=== PATIENT | female | born 1940 | race American Indian/Alaskan Native ===

== ENCOUNTER 2016-08-30 10:04 | Emergency (ER) | payer BC, OTHER ==
--- NOTE | 2016-08-30 09:59 | EDM.PDOC ---
ED HPI GENERAL MEDICAL PROBLEM - General Chief Complaint: Chest Pain Stated Complaint: FROM [facility] Time Seen by Provider: 08/30/16 09:54 Source of Information: Reports: Patient, EMS, Old Records, Provider (Dr. Toscano, [facility]), RN, RN Notes Reviewed History Limitations: Reports: No Limitations - History of Present Illness INITIAL COMMENTS - FREE TEXT/NARRATIVE: Sent by Dr Toscano by ambulance from [facility] for chest pain evaluation. Pt denies current chest pain on arrival to ER. Today the pt went to the clinic to have her Protime checked because she takes coumadin for chronic A- fib. Pt told Dr. Toscano that she has been having recurrent chest pain x3 weeks for which she takes a Nitroglycerin 0.4mg SL and the pain goes away. Pt last had the chest pain yesterday. Today Dr. Toscano gave pt chewable Aspirin 325mg prior to sending pt to the ER. Pt reports random chest pain, not specifically triggered by activity or exertion , over the past 3 weeks. She did not go to the doctor because the nitro. made the pain go away. Pt also reports a 6lb weight gain in the pain 1 week with increased lower ext. edema. She admits to orthopnea and sleeps on 2 pillow in addition to having a mechanical bed which she keeps the head of elevated to help her breathing. Denies cough, N/V, fever, or chills. Admits to a couple of episodes of epigastric pain that she thought was due to indigestion, but eventually it radiated to her chest and was relieved with nitroglycerin. Onset: Other (Onset 3 weeks ago.) Duration: Week(s): (3), Getting Worse, Intermittent Location: Reports: Chest Quality: Reports: Ache, Pressure, Same as Previous Episode Severity: Moderate Improves with: Reports: Medication (Nitroglycerin 0.4mg SL) Worsens with: Reports: None Context: Denies: Activity, Exercise, Lifting, Sick Contact, Trauma Associated Symptoms: Reports: No Other Symptoms Treatments [employer]: Reports: Aspirin, Nitroglycerin Back Pain Score (Numeric/FACES): 6 - Related Data Allergies Allergy/AdvReac Type Severity Reaction Status Date / Time ampicillin Allergy Hives Verified 08/30/16 10:29 atorvastatin calcium Allergy Muscle Verified 08/30/16 10:29 [From Lipitor] Aches clonazepam [From Klonopin] Allergy Other Verified 08/30/16 10:29 codeine Allergy Rash Verified 08/30/16 10:29 duloxetine HCl Allergy Nausea Verified 08/30/16 10:29 [From Cymbalta] hydrochlorothiazide Allergy Other Verified 08/30/16 10:29 indomethacin [From Indocin] Allergy Headache Verified 08/30/16 10:29 indomethacin sodium Allergy Headache Verified 08/30/16 10:29 [From Indocin] Iodinated Contrast- Oral and Allergy Other Verified 08/30/16 10:29 IV Dye [Iodinated Contrast Media - IV Dye] lactose Allergy Diarrhea Verified 08/30/16 10:29 lisinopril Allergy Cough Verified 08/30/16 10:29 metolazone Allergy Muscle Verified 08/30/16 10:29 Aches metoprolol Allergy Fatigue Verified 08/30/16 10:29 oxycodone [Oxycodone] Allergy Other Verified 08/30/16 10:29 Penicillins Allergy Hives Verified 08/30/16 10:29 pentazocine [From Talwin] Allergy Delusions Verified 08/30/16 10:29 pravastatin Allergy Muscle Verified 08/30/16 10:29 Aches simvastatin Allergy Muscle Verified 08/30/16 10:29 Aches spironolactone Allergy Headache Verified 08/30/16 10:29 Sulfa (Sulfonamide Allergy Hives Verified 08/30/16 10:29 Antibiotics) sulfamethoxazole Allergy Hives Verified 08/30/16 10:29 [From Bactrim] tetanus toxoid, adsorbed Allergy Cannot Verified 08/30/16 10:29 Remember trimethoprim [From Bactrim] Allergy Hives Verified 08/30/16 10:29 tuberculin, purified protein Allergy Rash Verified 08/30/16 10:29 deriva [tuberculin,purif.prot.deriv.] zoster vaccine live Allergy Cannot Verified 08/30/16 10:29 Remember Home Meds: Home Meds Bumetanide [Bumex] 4 mg PO BID 11/25/13 [History] Insulin Glarg,Human.Rec.Analog [LantUS] 0 unit SQ BID 11/25/13 [History] Isosorbide Mononitrate [Imdur] 60 mg PO BID 11/25/13 [History] LORazepam [Ativan] 1 mg PO BEDTIME PRN 11/25/13 [History] Levothyroxine Sodium [Synthroid] 150 mcg PO ACBREAKFAST 11/25/13 [History] Nitroglycerin [Nitrostat] 0.4 mg SL Q5M PRN MDD 3 11/25/13 [History] Psyllium [Metamucil SF] 1 tbsp PO DAILY PRN 11/25/13 [History] amLODIPine Besylate [Amlodipine Besylate] 2.5 mg PO DAILY 11/25/13 [History] Acetaminophen 650 mg PO Q6HR PRN 03/28/15 [History] Albuterol [Proventil HFA] 2 inh INH ASDIRECTED PRN 03/28/15 [History] Potassium Chloride [Potassium Chloride] 40 meq PO TID 03/28/15 [History] Amitriptyline [Elavil] 30 mg PO BEDTIME 03/29/15 [History] Cholecalciferol (Vitamin D3) [Vitamin D3] 1,000 units PO TID 03/29/15 [History] Warfarin [Coumadin] 3 mg PO DAILY 10/30/15 [History] hydrALAZINE HCl [Hydralazine HCl] 50 mg PO BID 10/30/15 [History] Albuterol [Proventil Neb Soln] 1 ampule INH Q6H 03/27/16 [History] Carvedilol [Coreg] 6.25 mg PO BIDMEALS 03/27/16 [History] Cyanocobalamin (Vitamin B12) [Vitamin B12] 500 mcg PO BEDTIME 03/27/16 [History] Garlic [Garlique] 1,000 mcg PO DAILY 03/27/16 [History] Hypromellose/PF [Retaine Hpmc 0.3% Eye Drops] 1 drop EYEBOTH Q4H PRN 03/27/16 [ History] Meclizine [Antivert] 25 mg PO QID 03/27/16 [History] Pantoprazole Sodium [Protonix] 40 mg PO DAILY 03/27/16 [History] Ubidecarenone [Co Q-10] 1 cap PO DAILY 03/27/16 [History] Docusate Sodium 100 mg PO BID 08/30/16 [History] Insulin Aspart [Novolog Flexpen] 0 units SUBCUT TID 08/30/16 [History] Metolazone 2.5 mg PO WEEKLY 08/30/16 [History] aMILoride HCl [Amiloride HCl] 5 mg PO BID 08/30/16 [History] Past Medical History HEENT History: Reports: None, Cataract, Impaired Vision, Other (See Below) Other HEENT History: HEARING LOSS TOTAL-RIGHT PARTIAL-LEFT, WEARS BILAT HEARING AIDES Cardiovascular History: Reports: Afib, CAD, Heart Failure, Hypertension, [place], Stents, Other (See Below) Other Cardiovascular History: CAROTID ARTERY DISEASE. HEART FAILURE WITH PRESERVED EJECTION FRACTION. HYPERTENSIVE HEART DISEASE. TIA Respiratory History: Reports: Asthma, Bronchitis, Recurrent Gastrointestinal History: Reports: Chronic Constipation, GERD, Hemorrhoids, Irritable Bowel Syndrome Genitourinary History: Reports: Chronic Renal Insuffiency, Other (See Below) Other Genitourinary History: CKD STAGE III [employer] [employer] [facility] [facility] WORK[employer] History: Reports: None, Other (See Below) Other OB/BYN History: UTERUS WAS ADHESED TO HER SPINE Musculoskeletal History: Reports: Back Pain, Chronic, Fracture, Osteoarthritis Other Musculoskeletal History: FRACTURED ARM WHEN SHE WAS YOUNG Neurological History: Reports: TIA, Other (See Below) Other Neuro History: NORMAL PRESSURE HYDROCEPHALUS. SUBDURAL HEMATOMA Psychiatric History: Reports: Depression Endocrine/Metabolic History: Reports: Diabetes, Type II, Hypothyroidism, Obesity /BMI 30+, Osteoporosis, Vitamin D Deficiency Hematologic History: Reports: Blood Transfusion(s) Immunologic History: Reports: None Oncologic (Cancer) History: Reports: Malignant Melanoma Dermatologic History: Reports: None - Infectious Disease History Infectious Disease History: Reports: Chicken Pox, Measles, Mumps, Shingles - Past Surgical History HEENT Surgical History: Reports: Adenoidectomy, Cataract Surgery, Tonsillectomy , Other (See Below) Cardiovascular Surgical History: Reports: Carotid Endarterectomy, Coronary Artery Stent, Other (See Below) GI Surgical History: Reports: Appendectomy, Colonoscopy, EGD, Polypectomy, Other (See Below) Female Surgical History: Reports: Breast Biopsy, Hysterectomy, Salpingo- Oophorectomy Neurological Surgical History: Reports: Other (See Below) Oncologic Surgical History: Reports: Biopsy of Breast Social & Family History - Family History Family Medical History: Noncontributory - Tobacco Use Smoking Status *Q: Former Smoker Tobacco Use Within Last Twelve Months: Cigarettes Years of Tobacco use: 10 Month Tobacco Last Used: 06/11/1982 Second Hand Smoke Exposure: Yes - Caffeine Use Caffeine Use: Reports: None - Alcohol Use Days Per Week of Alcohol Use: 0 - Recreational Drug Use Recreational Drug Use: No Drug Use in Last 12 Months: No - Living Situation & Occupation Living situation: Reports: with Family Occupation: Retired ED ROS GENERAL - Review of Systems Review Of Systems: ROS reveals no pertinent complaints other than HPI. ED EXAM, GENERAL - Physical Exam Exam: See Below Exam Limited By: No Limitations General Appearance: Alert, WD/WN, No Apparent Distress, Obese Eye Exam: Bilateral Eye: Normal Inspection Ears: Hearing Loss (chronic/stable) Nose: Normal Inspection, Normal Mucosa, No Blood Throat/Mouth: Normal Inspection, Normal Voice, No Airway Compromise Head: Atraumatic, Normocephalic Neck: Normal Inspection, Supple, Non-Tender, Full Range of Motion Respiratory/Chest: No Respiratory Distress, No Accessory Muscle Use, Chest Non- Tender, Decreased Breath Sounds, Rales Cardiovascular: Irregularly Irregular, Other (+2 pitting edema to knees B/L) GI/Abdominal: Normal Bowel Sounds, Soft, Non-Tender, No Distention, Other ( benign obese abdomen). No: Guarding, Rigid, Rebound (Female) Exam: Deferred Rectal (Female) Exam: Deferred Back Exam: Normal Inspection Extremities: Normal Range of Motion, Non-Tender, Pedal Edema Neurological: Alert, Oriented, CN II-XII Intact, Normal Cognition, No Motor/ Sensory Deficits Psychiatric: Normal Affect, Normal Mood Skin Exam: Warm, Dry, Intact, Normal Color, No Rash EKG INTERPRETATION EKG Date: 08/30/16 Time: 10:03 Rhythm: A-Fib Rate (Beats/Min): 69 [place]: Normal P-Wave: Absent QRS: Other (anterior Q-waves, old) ST-T: Normal QT: Normal Comparison: No Change Course - Vital Signs Last Recorded V/S: Last Vital Signs Temp 35.9 C 08/30/16 10:56 Pulse 80 08/30/16 10:56 Resp 18 08/30/16 10:56 BP 129/91 H 08/30/16 10:56 Pulse Ox 94 L 08/30/16 10:56 - Orders/Labs/Meds Orders: Active Orders 24 hr Category Date Time Status EKG 12 Lead [EKG Documentation Completion] [RC] STAT Care 08/30/16 09:59 Active Peripheral IV Care [RC] . DIRECTED Care 08/30/16 10:00 Active Sodium Chloride 0.9% [Saline Flush] Med 08/30/16 09:59 Active 10 ml FLUSH ASDIRECTED PRN Peripheral IV Insertion Adult [OM.PC] Stat Oth 08/30/16 09:59 Ordered Medication Orders Sodium Chloride (Saline Flush) 10 ml FLUSH ASDIRECTED PRN PRN Reason: Keep Vein Open Labs: Laboratory Tests 08/30/16 08/30/16 08/30/16 Range/Units 10:15 10:15 10:15 WBC 9.6 (5.0-10.0) 10^3/uL RBC 4.39 (4.2-5.4) 10^6/uL Hgb 14.1 (12.0-16.0) g/dL Hct 42.3 (37.0-47.0) % MCV 96.4 (80-100) fL MCH 32.1 (27.0-34.0) pg MCHC 33.3 (33.0-35.0) g/dL Plt Count 176 (150-450) 10^3/uL Neut % (Auto) 64.2 (42.2-75.2) % Lymph % (Auto) 14.6 L (20.5-50.1) % [place] % (Auto) 15.7 H (2-8) % Eos % (Auto) 5.2 H (1.0-3.0) % Baso % (Auto) 0.3 (0.0-1.0) % PT 21.7 H (9.0-12.0) SEC INR 2.2 H (0.9-1.2) APTT 35.7 H (22.0-34.0) SEC Sodium 137 (135-145) mmol/L Potassium 4.2 (3.6-5.0) mmol/L Chloride 95 L (101-111) mmol/L Carbon Dioxide 29.0 (21.0-31.0) mmol/L Anion Gap 17.2 BUN 35 H (7-18) mg/dL Creatinine 1.3 (0.6-1.3) mg/dL Est Cr Clr Drug Dosing 29.12 mL/min Estimated GFR (MDRD) 40 BUN/Creatinine Ratio 26.92 Glucose 155 H (74-105) mg/dL Calcium 9.5 (8.4-10.2) mg/dl Total Bilirubin 0.9 (0.2-1.0) mg/dL AST 34 (10-42) IU/L ALT 30 (10-60) IU/L Alkaline Phosphatase 108 (42-121) IU/L Troponin I 0.03 H* (0.00-0.02) ng/ml B-Natriuretic Peptide 152 H (0-100) pg/ml Total Protein 7.0 (6.7-8.2) g/dl Albumin 3.8 (3.2-5.5) g/dl Globulin 3.2 Albumin/Globulin Ratio 1.19 Meds: Medications Generic Name Dose Route Start Last Admin Trade Name Freq PRN Reason Stop Dose Admin Sodium Chloride 10 ml 08/30/16 09:59 Saline Flush FLUSH ASDIRECTED PRN Keep Vein Open - Radiology Interpretation Free Text/Narrative:: CXR: cardiomegaly unchanged, no new abnormalities compared to prior studies per Rad. report. Departure - Departure Time of Disposition: 11:05 Disposition: DC/Tfer to [facility] 02 Reason for Transfer *Q: Primary PCI Indicated Condition: Serious Clinical Impression: Unstable angina pectoris due to coronary arteriosclerosis CHF (congestive heart failure) Qualifiers: Congestive heart failure type: unspecified congestive heart failure type Congestive heart failure chronicity: acute on chronic Qualified Code(s): I50.9 - Heart failure, unspecified Forms: ED Department Discharge, Interfacility Transfer EMTALA - My Orders Last 24 Hours: My Active Orders 08/30/16 09:59 EKG 12 Lead [EKG Documentation Completion] [RC] STAT Sodium Chloride 0.9% [Saline Flush] 10 ml FLUSH ASDIRECTED PRN Peripheral IV Insertion Adult [OM.PC] Stat 08/30/16 10:00 Peripheral IV Care [RC] . DIRECTED - Assessment/Plan Last 24 Hours: My Active Orders 08/30/16 09:59 EKG 12 Lead [EKG Documentation Completion] [RC] STAT Sodium Chloride 0.9% [Saline Flush] 10 ml FLUSH ASDIRECTED PRN Peripheral IV Insertion Adult [OM.PC] Stat 08/30/16 10:00 Peripheral IV Care [RC] . DIRECTED
[~2016-08-30 10:04] MED LIST: Sodium Chloride 0.9% 10 ML Syringe FLUSH PRN
--- NOTE | 2016-08-30 10:41 | CR ---
Clinical history: 76-year-old female chest pain. Interpretation: Upright AP portable chest film confirms mild cardiomegaly but without new cephalizat ion of flow, alveolar edema or dependent pleural fluid accumulation when compared 11 June 2015 exam (external manager home healthcare leads, tiny surgical clips left neck and apparent ventriculoperitoneal sh unt line on the right). Good inspiratory effort and no discrete lung mass, hilar lymphadenopathy or focal lobar pneumonia. No atelectasis/collapse. No pneumothorax. CONCLUSION: No acute new cardiopulmonary abnormality since May 2015 exam.
[2016-08-30 10:57] VITALS: BP 129/91
[2016-08-30] MEDS ORDERED: Insulin Detemir 100 Units/ML 3 ML Pen SUBCUT ONE (11:19)
--- NOTE | 2016-09-03 14:13 | EKG ---
08/30/2016- CHIKIS BARRON - A 12-lead EKG shows atrial fibrillation with heart rate of 69. No significant ST elevation or ST depression noted on this 12-lead EKG. [facility] /[id number]
== END 2016-08-30 11:47 ==
LOC: DL.ED 10:04
DX: I25.110 Atherosclerotic heart disease of native coronary artery with unstable angina pectoris (principal); I13.0 Hypertensive heart and chronic kidney disease with heart failure and stage 1 through stage 4 chronic kidney disease, or unspecified chronic kidney disease; E11.22 Type 2 diabetes mellitus with diabetic chronic kidney disease; N18.3 Chronic kidney disease, stage 3 (moderate); I50.9 Heart failure, unspecified; I25.2 Old myocardial infarction; K21.9 Gastro-esophageal reflux disease without esophagitis; J45.909 Unspecified asthma, uncomplicated; F32.9 Major depressive disorder, single episode, unspecified; E66.9 Obesity, unspecified; Z86.73 Personal history of transient ischemic attack (TIA), and cerebral infarction without residual deficits; Z98.890 Other specified postprocedural states; Z95.5 Presence of coronary angioplasty implant and graft; Z85.820 Personal history of malignant melanoma of skin; Z90.710 Acquired absence of both cervix and uterus; Z98.49 Cataract extraction status, unspecified eye; Z87.891 Personal history of nicotine dependence; Z79.4 Long term (current) use of insulin; Z79.01 Long term (current) use of anticoagulants; Z79.899 Other long term (current) drug therapy; Z88.7 Allergy status to serum and vaccine; Z88.0 Allergy status to penicillin; Z88.1 Allergy status to other antibiotic agents; Z88.5 Allergy status to narcotic agent; Z88.8 Allergy status to other drugs, medicaments and biological substances; Z91.041 Radiographic dye allergy status
CPT/HCPCS: 36415; 71010; 80053; 83880; 84484; 85025; 85610; 85730; 93005; 99285; J1815

== ENCOUNTER 2016-09-15 11:31 | Emergency (ER) | payer BC, OTHER ==
[2016-09-15] MEDS ORDERED: Sodium Chloride 0.9% 10 ML Syringe FLUSH PRN (12:05)
--- NOTE | 2016-09-15 12:05 | EDM.PDOC ---
ED HPI GENERAL MEDICAL PROBLEM - General Chief Complaint: Chest Pain Stated Complaint: [id number] CHEST PAIN Time Seen by Provider: 09/15/16 12:05 Source of Information: Reports: Patient History Limitations: Reports: No Limitations - History of Present Illness INITIAL COMMENTS - FREE TEXT/NARRATIVE: 76 yo female presents with shortness of breath and dry cough x 1 week. States that she was recently admitted for CHF exacerbation. C/o nausea with no vomiting. No other complaints Onset Date: 09/08/16 Duration: Getting Worse Location: Reports: Chest Quality: Reports: Pressure Improves with: Reports: None Worsens with: Reports: Breathing Associated Symptoms: Reports: No Other Symptoms Chest Pain Score (Numeric/FACES): 5 - Related Data Allergies Allergy/AdvReac Type Severity Reaction Status Date / Time ampicillin Allergy Hives Verified 09/15/16 13:45 atorvastatin calcium Allergy Muscle Verified 09/15/16 13:45 [From Lipitor] Aches clonazepam [From Klonopin] Allergy Other Verified 09/15/16 13:45 codeine Allergy Rash Verified 09/15/16 13:45 duloxetine HCl Allergy Nausea Verified 09/15/16 13:45 [From Cymbalta] hydrochlorothiazide Allergy Other Verified 09/15/16 13:45 indomethacin [From Indocin] Allergy Headache Verified 09/15/16 13:45 indomethacin sodium Allergy Headache Verified 09/15/16 13:45 [From Indocin] Iodinated Contrast- Oral and Allergy Other Verified 09/15/16 13:45 IV Dye [Iodinated Contrast Media - IV Dye] lactose Allergy Diarrhea Verified 09/15/16 13:45 lisinopril Allergy Cough Verified 09/15/16 13:45 metolazone Allergy Muscle Verified 09/15/16 13:45 Aches metoprolol Allergy Fatigue Verified 09/15/16 13:45 oxycodone [Oxycodone] Allergy Other Verified 09/15/16 13:45 Penicillins Allergy Hives Verified 09/15/16 13:45 pentazocine [From Talwin] Allergy Delusions Verified 09/15/16 13:45 pravastatin Allergy Muscle Verified 09/15/16 13:45 Aches simvastatin Allergy Muscle Verified 09/15/16 13:45 Aches spironolactone Allergy Headache Verified 09/15/16 13:45 Sulfa (Sulfonamide Allergy Hives Verified 09/15/16 13:45 Antibiotics) sulfamethoxazole Allergy Hives Verified 09/15/16 13:45 [From Bactrim] tetanus toxoid, adsorbed Allergy Cannot Verified 09/15/16 13:45 Remember trimethoprim [From Bactrim] Allergy Hives Verified 09/15/16 13:45 tuberculin, purified protein Allergy Rash Verified 09/15/16 13:45 deriva [tuberculin,purif.prot.deriv.] zoster vaccine live Allergy Cannot Verified 09/15/16 13:45 Remember Home Meds: Home Meds Bumetanide [Bumex] 4 mg PO BID 11/25/13 [History] Insulin Glarg,Human.Rec.Analog [LantUS] 0 unit SQ BID 11/25/13 [History] Isosorbide Mononitrate [Imdur] 60 mg PO BID 11/25/13 [History] LORazepam [Ativan] 1 mg PO BEDTIME PRN 11/25/13 [History] Levothyroxine Sodium [Synthroid] 150 mcg PO ACBREAKFAST 11/25/13 [History] Nitroglycerin [Nitrostat] 0.4 mg SL Q5M PRN MDD 3 11/25/13 [History] Psyllium [Metamucil SF] 1 tbsp PO DAILY PRN 11/25/13 [History] amLODIPine Besylate [Amlodipine Besylate] 2.5 mg PO DAILY 11/25/13 [History] Acetaminophen 650 mg PO Q6HR PRN 03/28/15 [History] Albuterol [Proventil HFA] 2 inh INH ASDIRECTED PRN 03/28/15 [History] Potassium Chloride [Potassium Chloride] 40 meq PO TID 03/28/15 [History] Amitriptyline [Elavil] 30 mg PO BEDTIME 03/29/15 [History] Cholecalciferol (Vitamin D3) [Vitamin D3] 1,000 units PO TID 03/29/15 [History] Warfarin [Coumadin] 3 mg PO DAILY 10/30/15 [History] hydrALAZINE HCl [Hydralazine HCl] 50 mg PO BID 10/30/15 [History] Albuterol [Proventil Neb Soln] 1 ampule INH Q6H 03/27/16 [History] Carvedilol [Coreg] 6.25 mg PO BIDMEALS 03/27/16 [History] Cyanocobalamin (Vitamin B12) [Vitamin B12] 500 mcg PO BEDTIME 03/27/16 [History] Garlic [Garlique] 1,000 mcg PO DAILY 03/27/16 [History] Hypromellose/PF [Retaine Hpmc 0.3% Eye Drops] 1 drop EYEBOTH Q4H PRN 03/27/16 [ History] Meclizine [Antivert] 25 mg PO QID 03/27/16 [History] Pantoprazole Sodium [Protonix] 40 mg PO DAILY 03/27/16 [History] Ubidecarenone [Co Q-10] 1 cap PO DAILY 03/27/16 [History] Docusate Sodium 100 mg PO BID 08/30/16 [History] Insulin Aspart [Novolog Flexpen] 0 units SUBCUT TID 08/30/16 [History] Metolazone 2.5 mg PO ASDIRECTED 08/30/16 [History] aMILoride HCl [Amiloride HCl] 5 mg PO BID 08/30/16 [History] Past Medical History HEENT History: Reports: None, Cataract, Impaired Vision, Other (See Below) Other HEENT History: HEARING LOSS TOTAL-RIGHT PARTIAL-LEFT, WEARS BILAT HEARING AIDES Cardiovascular History: Reports: Afib, CAD, Heart Failure, Hypertension, NV, Stents, Other (See Below) Other Cardiovascular History: CAROTID ARTERY DISEASE. HEART FAILURE WITH PRESERVED EJECTION FRACTION. HYPERTENSIVE HEART DISEASE. TIA Respiratory History: Reports: Asthma, Bronchitis, Recurrent Gastrointestinal History: Reports: Chronic Constipation, GERD, Hemorrhoids, Irritable Bowel Syndrome Genitourinary History: Reports: Chronic Renal Insuffiency, Other (See Below) Other Genitourinary History: CKD STAGE [employer] History: Reports: None, Other (See Below) Other OB/BYN History: UTERUS WAS ADHESED TO HER SPINE Musculoskeletal History: Reports: Back Pain, Chronic, Fracture, Osteoarthritis Other Musculoskeletal History: FRACTURED ARM WHEN SHE WAS YOUNG Neurological History: Reports: TIA, Other (See Below) Other Neuro History: NORMAL PRESSURE HYDROCEPHALUS. SUBDURAL HEMATOMA Psychiatric History: Reports: Depression Endocrine/Metabolic History: Reports: Diabetes, Type II, Hypothyroidism, Obesity /BMI 30+, Osteoporosis, Vitamin D Deficiency Hematologic History: Reports: Blood Transfusion(s) Immunologic History: Reports: None Oncologic (Cancer) History: Reports: Malignant Melanoma Dermatologic History: Reports: None - Infectious Disease History Infectious Disease History: Reports: Chicken Pox, Measles, Mumps, Shingles - Past Surgical History HEENT Surgical History: Reports: Adenoidectomy, Cataract Surgery, Tonsillectomy , Other (See Below) Cardiovascular Surgical History: Reports: Carotid Endarterectomy, Coronary Artery Stent, Other (See Below) GI Surgical History: Reports: Appendectomy, Colonoscopy, EGD, Polypectomy, Other (See Below) Female Surgical History: Reports: Breast Biopsy, Hysterectomy, Salpingo- Oophorectomy Neurological Surgical History: Reports: Other (See Below) Oncologic Surgical History: Reports: Biopsy of Breast Social & Family History - Family History Family Medical History: Noncontributory - Tobacco Use Smoking Status *Q: Former Smoker Years of Tobacco use: 10 Used Tobacco, but Quit: Yes Month Tobacco Last Used: 06/11/1982 Second Hand Smoke Exposure: Yes - Caffeine Use Caffeine Use: Reports: None - Alcohol Use Days Per Week of Alcohol Use: 0 - Recreational Drug Use Recreational Drug Use: No Drug Use in Last 12 Months: No - Living Situation & Occupation Living situation: Reports: with Family Occupation: Retired ED ROS GENERAL - Review of Systems Review Of Systems: ROS reveals no pertinent complaints other than HPI. ED EXAM, GENERAL - Physical Exam Exam: See Below Exam Limited By: No Limitations General Appearance: Alert, WD/WN, No Apparent Distress Eye Exam: Bilateral Eye: PERRL Nose: Normal Inspection, Normal Mucosa, No Blood Throat/Mouth: Normal Inspection, Normal Lips, Normal Teeth, Normal Gums, Normal Oropharynx, Normal Voice, No Airway Compromise Head: Atraumatic, Normocephalic Respiratory/Chest: No Respiratory Distress, No Accessory Muscle Use, Chest Non- Tender, Crackles Cardiovascular: Normal Peripheral Pulses, Regular Rate, Rhythm, No Edema, No Gallop, No JVD, No Murmur, No Rub Neurological: Alert, Oriented, CN II-XII Intact, Normal Cognition, Normal Gait, Normal Reflexes, No Motor/Sensory Deficits Skin Exam: Warm, Dry, Intact, Normal Color, No Rash Course - Vital Signs Last Recorded V/S: Last Vital Signs Temp 98.2 F 09/15/16 11:35 Pulse 98 09/15/16 11:35 Resp 20 09/15/16 11:35 BP 128/65 09/15/16 12:16 Pulse Ox 92 L 09/15/16 11:35 - Orders/Labs/Meds Orders: Active Orders 24 hr Category Date Time Status Cardiac Monitoring [RC] . DIRECTED Care 09/15/16 12:05 Active EKG Documentation Completion [RC] STAT Care 09/15/16 12:05 Active Peripheral IV Care [RC] . DIRECTED Care 09/15/16 12:06 Active RT Aerosol Therapy [RC] ASDIRECTED Care 09/15/16 13:09 Active Sodium Chloride 0.9% [Saline Flush] Med 09/15/16 12:05 Active 10 ml FLUSH ASDIRECTED PRN Peripheral IV Insertion Adult [OM.PC] Stat Oth 09/15/16 12:05 Ordered Medication Orders Sodium Chloride (Saline Flush) 10 ml FLUSH ASDIRECTED PRN PRN Reason: Keep Vein Open Last Admin: 09/15/16 12:15 Dose: 10 ml Labs: Laboratory Tests 09/15/16 09/15/16 09/15/16 Range/Units 12:10 12:10 12:10 WBC 9.3 (5.0-10.0) 10^3/uL RBC 4.33 (4.2-5.4) 10^6/uL Hgb 14.0 (12.0-16.0) g/dL Hct 40.2 (37.0-47.0) % MCV 92.8 (80-100) fL MCH 32.3 (27.0-34.0) pg MCHC 34.8 (33.0-35.0) g/dL Plt Count 178 (150-450) 10^3/uL Neut % (Auto) 67.5 (42.2-75.2) % Lymph % (Auto) 14.2 L (20.5-50.1) % [place] % (Auto) 13.1 H (2-8) % Eos % (Auto) 4.9 H (1.0-3.0) % Baso % (Auto) 0.3 (0.0-1.0) % PT 17.5 H (9.0-12.0) SEC INR 1.7 H (0.9-1.2) Sodium 130 L (135-145) mmol/L Potassium 3.6 (3.6-5.0) mmol/L Chloride 85 L (101-111) mmol/L Carbon Dioxide 31.0 (21.0-31.0) mmol/L Anion Gap 17.6 BUN 53 H (7-18) mg/dL Creatinine 1.7 H (0.6-1.3) mg/dL Est Cr Clr Drug Dosing 22.07 mL/min Estimated GFR (MDRD) 29 Glucose 424 H* (74-105) mg/dL Calcium 9.4 (8.4-10.2) mg/dl Creatine Kinase (26-174) IU/L Creatine Kinase Index (0-2.4) % CK-MB (CK-2) (0.4-4.7) ng/mL Troponin I 0.03 H* (0.00-0.02) ng/ml B-Natriuretic Peptide 104 H (0-100) pg/ml Urine Color (YELLOW) Urine Appearance (CLEAR) Urine pH (5.0-9.0) Ur Specific [place] (1.005-1.030) Urine Protein (NEGATIVE) Urine Glucose (UA) (NEGATIVE) Urine Ketones (NEGATIVE) Urine Occult Blood (NEGATIVE) Urine Nitrite (NEGATIVE) Urine Bilirubin (NEGATIVE) Urine Urobilinogen (0.2-1.0) mg/dL Ur Leukocyte Esterase (NEGATIVE) Urine RBC /HPF Urine WBC (0-5/HPF) /HPF Ur Epithelial Cells /HPF Urine Bacteria (0-FEW/HPF) /HPF 09/15/16 09/15/16 Range/Units 12:10 13:27 WBC (5.0-10.0) 10^3/uL RBC (4.2-5.4) 10^6/uL Hgb (12.0-16.0) g/dL Hct (37.0-47.0) % MCV (80-100) fL MCH (27.0-34.0) pg MCHC (33.0-35.0) g/dL Plt Count (150-450) 10^3/uL Neut % (Auto) (42.2-75.2) % Lymph % (Auto) (20.5-50.1) % [place] % (Auto) (2-8) % Eos % (Auto) (1.0-3.0) % Baso % (Auto) (0.0-1.0) % PT (9.0-12.0) SEC INR (0.9-1.2) Sodium (135-145) mmol/L Potassium (3.6-5.0) mmol/L Chloride (101-111) mmol/L Carbon Dioxide (21.0-31.0) mmol/L Anion Gap BUN (7-18) mg/dL Creatinine (0.6-1.3) mg/dL Est Cr Clr Drug Dosing mL/min Estimated GFR (MDRD) Glucose (74-105) mg/dL Calcium (8.4-10.2) mg/dl Creatine Kinase 45 (26-174) IU/L Creatine Kinase Index 5.3 H (0-2.4) % CK-MB (CK-2) 2.40 (0.4-4.7) ng/mL Troponin I (0.00-0.02) ng/ml B-Natriuretic Peptide (0-100) pg/ml Urine Color Light yellow (YELLOW) Urine Appearance Clear (CLEAR) Urine pH 7.0 (5.0-9.0) Ur Specific [place] 1.015 (1.005-1.030) Urine Protein Negative (NEGATIVE) Urine Glucose (UA) 250 H (NEGATIVE) Urine Ketones Negative (NEGATIVE) Urine Occult Blood Negative (NEGATIVE) Urine Nitrite Negative (NEGATIVE) Urine Bilirubin Negative (NEGATIVE) Urine Urobilinogen 0.2 (0.2-1.0) mg/dL Ur Leukocyte Esterase Small H (NEGATIVE) Urine RBC 0-5 /HPF Urine WBC 20-30 H (0-5/HPF) /HPF Ur Epithelial Cells Occasional /HPF Urine Bacteria Few (0-FEW/HPF) /HPF Meds: Medications Generic Name Dose Route Start Last Admin Trade Name Freq PRN Reason Stop Dose Admin Sodium Chloride 10 ml 09/15/16 12:05 09/15/16 12:15 Saline Flush FLUSH 10 ml ASDIRECTED PRN Administration Keep Vein Open Discontinued Medications Generic Name Dose Route Start Last Admin Trade Name Freq PRN Reason Stop Dose Admin Albuterol/Ipratropium 3 ml 09/15/16 13:09 09/15/16 13:43 Duoneb 3.0-0.5 Mg/3 Ml NEB 09/15/16 13:10 3 ml ONETIME ONE Administration Furosemide 20 mg 09/15/16 13:20 09/15/16 13:42 Lasix IVPUSH 09/15/16 13:21 20 mg NOW ONE Administration Insulin Human Regular 6 unit 09/15/16 13:18 09/15/16 13:43 Humulin R SUBCUT 09/15/16 13:19 6 units ONETIME ONE Administration Protocol Nitroglycerin 0.4 mg 09/15/16 12:06 09/15/16 12:16 Nitrostat SL 09/15/16 12:07 0.4 mg ONETIME ONE Administration - Re-Assessments/Exams Free Text/Narrative Re-Assessment/Exam: 09/15/16 14:10 Pt feels better after breathing treatment and lasix. No acute changes in labs to suggest CHF exacerbation or NV. Departure - Departure Time of Disposition: 14:11 Disposition: Home, Self-Care 01 Condition: Good Clinical Impression: Bronchitis Instructions: Acute Bronchitis Forms: ED Department Discharge Additional Instructions: take medication as directed. You may take the albuterol inhaler or nebulizer every 4 hours and if it is a duoneb, you may take every 6-8 hours. Follow up with your PCP as needed. - My Orders Last 24 Hours: My Active Orders 09/15/16 12:05 Cardiac Monitoring [RC] . DIRECTED EKG Documentation Completion [RC] STAT Sodium Chloride 0.9% [Saline Flush] 10 ml FLUSH ASDIRECTED PRN Peripheral IV Insertion Adult [OM.PC] Stat 09/15/16 12:06 Peripheral IV Care [RC] . DIRECTED 09/15/16 13:09 RT Aerosol Therapy [RC] ASDIRECTED - Assessment/Plan Last 24 Hours: My Active Orders 09/15/16 12:05 Cardiac Monitoring [RC] . DIRECTED EKG Documentation Completion [RC] STAT Sodium Chloride 0.9% [Saline Flush] 10 ml FLUSH ASDIRECTED PRN Peripheral IV Insertion Adult [OM.PC] Stat 09/15/16 12:06 Peripheral IV Care [RC] . DIRECTED 09/15/16 13:09 RT Aerosol Therapy [RC] ASDIRECTED
[2016-09-15] MEDS ORDERED: Nitroglycerin 0.4 MG Tab.SL SL ONE (12:06)
[2016-09-15 12:34] VITALS: BP 135/77
[2016-09-15] MEDS ORDERED: Albuterol/Ipratropium 3.0-0.5 MG/3 ML Neb Soln NEB ONE (13:09)
[2016-09-15] MEDS ORDERED: Insulin Regular, Human 100 Units/ML 3 ML Vial SUBCUT ONE (13:18)
[2016-09-15] MEDS ORDERED: Furosemide 40 MG/4 ML VIAL IVPUSH ONE (13:20)
--- NOTE | 2016-09-17 10:00 | EKG ---
09/15/2016 - CHIKIS BARRON - TIME: 11:52 a.m. EKG shows atrial fibrillation with controlled ventricular response. There are Q waves in the anteroseptal leads which are likely old. [facility] /[id number]
== END 2016-09-15 14:20 | disposition home or self-care (01) ==
LOC: DL.ED 11:31
DX: J40 Bronchitis, not specified as acute or chronic (principal); H54.7 Unspecified visual loss; I48.91 Unspecified atrial fibrillation; I25.10 Atherosclerotic heart disease of native coronary artery without angina pectoris; I25.2 Old myocardial infarction; J45.909 Unspecified asthma, uncomplicated; K21.9 Gastro-esophageal reflux disease without esophagitis; I13.0 Hypertensive heart and chronic kidney disease with heart failure and stage 1 through stage 4 chronic kidney disease, or unspecified chronic kidney disease; I50.9 Heart failure, unspecified; N18.3 Chronic kidney disease, stage 3 (moderate); E03.9 Hypothyroidism, unspecified; E66.9 Obesity, unspecified; F32.9 Major depressive disorder, single episode, unspecified; E11.22 Type 2 diabetes mellitus with diabetic chronic kidney disease; Z87.891 Personal history of nicotine dependence; Z88.1 Allergy status to other antibiotic agents; Z88.5 Allergy status to narcotic agent; Z95.5 Presence of coronary angioplasty implant and graft; Z88.8 Allergy status to other drugs, medicaments and biological substances; Z91.041 Radiographic dye allergy status; Z88.2 Allergy status to sulfonamides; Z79.899 Other long term (current) drug therapy
CPT/HCPCS: 36415; 71020; 80048; 81001; 82550; 82553; 83880; 84484; 85025; 85610; 93005; 96372; 96374; 99284; A9270; J1815; J1940; J7050

== ENCOUNTER 2016-12-30 11:01 | Observation (INO) | payer BC, OTHER ==
--- NOTE | 2016-12-30 11:09 | EDM.PDOC ---
ED HPI GENERAL MEDICAL PROBLEM - General Chief Complaint: Chest Pain Stated Complaint: BY AMBULANCE Time Seen by Provider: 12/30/16 11:08 Source of Information: Reports: Patient, EMS, Old Records, RN, RN Notes Reviewed History Limitations: Reports: No Limitations - History of Present Illness INITIAL COMMENTS - FREE TEXT/NARRATIVE: Arrives from home by ambulance with c/o 3 days duration of generalized frontal chest pressure with recurrent nausea and very slight shortness of breath. Pt states that she "does not have chest pain", only a pressure which she describes a mild to moderate, but persistent. Denies cough, fever, chills, radiating pain , emesis, abdominal pain, headache, syncope, near syncope, or dizziness. Admits to some generalized fatigue and weakness, and "not feeling well" in general. Today pt checked her heart rate and it was 106 which if fast compared to her baseline rate, so she called the ambulance. Pt states that she has had no medication changes recently, no change in activity or stress. Nothing makes her Sx's any worse or any better. 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 (324mg by EMS prior to arrival this morning) Middle Anterior Chest Pain Score (Numeric/FACES): 4 - Related Data Allergies Allergy/AdvReac Type Severity Reaction Status Date / Time ampicillin Allergy Hives Verified 12/30/16 11:57 atorvastatin calcium Allergy Muscle Verified 12/30/16 11:57 [From Lipitor] Aches clonazepam [From Klonopin] Allergy Other Verified 12/30/16 11:57 codeine Allergy Rash Verified 12/30/16 11:57 duloxetine HCl Allergy Nausea Verified 12/30/16 11:57 [From Cymbalta] hydrochlorothiazide Allergy Other Verified 12/30/16 11:57 indomethacin [From Indocin] Allergy Headache Verified 12/30/16 11:57 indomethacin sodium Allergy Headache Verified 12/30/16 11:57 [From Indocin] Iodinated Contrast- Oral and Allergy Other Verified 12/30/16 11:57 IV Dye [Iodinated Contrast Media - IV Dye] lactose Allergy Diarrhea Verified 12/30/16 11:57 lisinopril Allergy Cough Verified 12/30/16 11:57 metolazone Allergy Muscle Verified 12/30/16 11:57 Aches metoprolol Allergy Fatigue Verified 12/30/16 11:57 oxycodone [Oxycodone] Allergy Other Verified 12/30/16 11:57 Penicillins Allergy Hives Verified 12/30/16 11:57 pentazocine [From Talwin] Allergy Delusions Verified 12/30/16 11:57 pravastatin Allergy Muscle Verified 12/30/16 11:57 Aches simvastatin Allergy Muscle Verified 12/30/16 11:57 Aches spironolactone Allergy Headache Verified 12/30/16 11:57 Sulfa (Sulfonamide Allergy Hives Verified 12/30/16 11:57 Antibiotics) sulfamethoxazole Allergy Hives Verified 12/30/16 11:57 [From Bactrim] tetanus toxoid, adsorbed Allergy Cannot Verified 12/30/16 11:57 Remember trimethoprim [From Bactrim] Allergy Hives Verified 12/30/16 11:57 tuberculin, purified protein Allergy Rash Verified 12/30/16 11:57 deriva [tuberculin,purif.prot.deriv.] zoster vaccine live Allergy Cannot Verified 12/30/16 11:57 Remember Home Meds: Home Meds Bumetanide [Bumex] 4 mg PO BID 11/25/13 [History] Insulin Glarg,Human.Rec.Analog [LantUS] 75 unit SQ BID 11/25/13 [History] Isosorbide Mononitrate [Imdur] 60 mg PO BID 11/25/13 [History] LORazepam [Ativan] 1 mg PO BEDTIME PRN 11/25/13 [History] Levothyroxine Sodium [Synthroid] 150 mcg PO ACBREAKFAST 11/25/13 [History] Nitroglycerin [Nitrostat] 0.4 mg SL Q5M PRN MDD 3 11/25/13 [History] Psyllium [Metamucil SF] 1 tbsp PO DAILY PRN 11/25/13 [History] amLODIPine Besylate [Amlodipine Besylate] 2.5 mg PO DAILY 11/25/13 [History] Acetaminophen 650 mg PO Q6HR PRN 03/28/15 [History] Albuterol [Proventil HFA] 2 inh INH ASDIRECTED PRN 03/28/15 [History] Potassium Chloride [Potassium Chloride] 40 meq PO TID 03/28/15 [History] Cholecalciferol (Vitamin D3) [Vitamin D3] 1,000 units PO TID 03/29/15 [History] Warfarin [Coumadin] 3 mg PO DAILY 10/30/15 [History] hydrALAZINE HCl [Hydralazine HCl] 50 mg PO BID 10/30/15 [History] Albuterol [Proventil Neb Soln] 1 ampule INH Q6H 03/27/16 [History] Carvedilol [Coreg] 6.25 mg PO BIDMEALS 03/27/16 [History] Cyanocobalamin (Vitamin B12) [Vitamin B12] 500 mcg PO BEDTIME 03/27/16 [History] Garlic [Garlique] 1,000 mcg PO DAILY 03/27/16 [History] Hypromellose/PF [Retaine Hpmc 0.3% Eye Drops] 1 drop EYEBOTH Q4H PRN 03/27/16 [ History] Meclizine [Antivert] 25 mg PO QID 03/27/16 [History] Pantoprazole Sodium [Protonix] 40 mg PO DAILY 03/27/16 [History] Ubidecarenone [Co Q-10] 1 cap PO DAILY 03/27/16 [History] Docusate Sodium 100 mg PO BID 08/30/16 [History] Insulin Aspart [Novolog Flexpen] 56 units SUBCUT TID 08/30/16 [History] Metolazone 2.5 mg PO ASDIRECTED 08/30/16 [History] aMILoride HCl [Amiloride HCl] 5 mg PO BID 08/30/16 [History] Past Medical History HEENT History: Reports: None, Cataract, Impaired Vision, Other (See Below) Other HEENT History: HEARING LOSS TOTAL-RIGHT PARTIAL-LEFT, WEARS BILAT HEARING AIDES Cardiovascular History: Reports: Afib, CAD, Heart Failure, Hypertension, OR, Stents, Other (See Below) Other Cardiovascular History: CAROTID ARTERY DISEASE. HEART FAILURE WITH PRESERVED EJECTION FRACTION. HYPERTENSIVE HEART DISEASE. 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 SUBDURAL HEMATOMA Psychiatric History: Reports: Depression Endocrine/Metabolic History: Reports: Diabetes, Type II, Hypothyroidism, Obesity /BMI 30+, Osteoporosis, Vitamin D Deficiency Hematologic History: Reports: Blood Transfusion(s) Immunologic History: Reports: None Oncologic (Cancer) History: Reports: Malignant Melanoma Dermatologic History: Reports: None - Infectious Disease History Infectious Disease History: Reports: Chicken Pox, Measles, Mumps, Shingles - Past Surgical History Head Surgeries/Procedures: Reports: Shunt HEENT Surgical History: Reports: Adenoidectomy, Cataract Surgery, Tonsillectomy , Other (See Below) Cardiovascular Surgical History: Reports: Carotid Endarterectomy, Coronary Artery Stent, Other (See Below) GI Surgical History: Reports: Appendectomy, Colonoscopy, EGD, Polypectomy, Other (See Below) Female Surgical History: Reports: Breast Biopsy, Hysterectomy, Salpingo- Oophorectomy Neurological Surgical History: Reports: Other (See Below) Oncologic Surgical History: Reports: Biopsy of Breast Social & Family History - Family History Family Medical History: Noncontributory - Tobacco Use Smoking Status *Q: Former Smoker Years of Tobacco use: 10 Used Tobacco, but Quit: Yes Month Tobacco Last Used: 06/11/1982 Second Hand Smoke Exposure: Yes - Caffeine Use Caffeine Use: Reports: None - Alcohol Use Days Per Week of Alcohol Use: 0 - Recreational Drug Use Recreational Drug Use: No Drug Use in Last 12 Months: No - Living Situation & Occupation Living situation: Reports: with Family Occupation: Retired ED ROS GENERAL - Review of Systems Review Of Systems: ROS reveals no pertinent complaints other than HPI. ED EXAM, GENERAL - Physical Exam Exam: See Below Exam Limited By: No Limitations General Appearance: Alert, WD/WN, No Apparent Distress, Obese, Other ( chronically ill, and elderly appearing) Eye Exam: Bilateral Eye: Normal Inspection Ears: Hearing Grossly Normal Nose: Normal Inspection, Normal Mucosa, No Blood Throat/Mouth: Normal Inspection, Normal Lips, Normal Teeth, Normal Gums, Normal Oropharynx, Normal Voice, No Airway Compromise Head: Atraumatic, Normocephalic Neck: Normal Inspection, Supple, Non-Tender, Full Range of Motion Respiratory/Chest: No Respiratory Distress, Lungs Clear, No Accessory Muscle Use , Chest Non-Tender, Decreased Breath Sounds Cardiovascular: No Gallop, No JVD, No Murmur, No Rub, Irregularly Irregular, Other (mild +1 edema at B/L lower extremities (improved from prior exam by me)) GI/Abdominal: Normal Bowel Sounds, Soft, Non-Tender, No Distention, Other ( Benign obese abdomen) (Female) Exam: Deferred Rectal (Female) Exam: Deferred Back Exam: Decreased Range of Motion (chronic/stable). No: CVA Tenderness (L), CVA Tenderness (R) Extremities: Normal Range of Motion. No: Joint Swelling, Leslie's Sign, Increased Warmth Neurological: Alert, Oriented, CN II-XII Intact, Normal Cognition, No Motor/ Sensory Deficits Psychiatric: Normal Affect, Normal Mood Skin Exam: Warm, Dry, Intact, Normal Color, No Rash EKG INTERPRETATION EKG Date: 12/30/16 Time: 11:13 Rhythm: A-Fib Rate (Beats/Min): 75 Ovalo: Normal P-Wave: Absent QRS: Other (PVCs) ST-T: Normal QT: Prolonged (borderline) Comparison: No Change (compared to 09/15/16 EKG) Course - Vital Signs Last Recorded V/S: Last Vital Signs Temp 36.4 C 12/30/16 11:01 Pulse 80 12/30/16 11:01 Resp 20 12/30/16 11:01 BP 141/69 H 12/30/16 11:01 Pulse Ox 94 L 12/30/16 11:01 - Orders/Labs/Meds Orders: Active Orders 24 hr Category Date Time Status EKG 12 Lead [EKG Documentation Completion] [RC] STAT Care 12/30/16 11:17 Active Chest 1V Frontal [CR] Routine Exams 12/30/16 Taken Chest 1V Frontal [CR] Stat Exams 12/30/16 11:09 Ordered AMYLASE [CHEM] Stat Lab 12/30/16 11:09 Ordered B-TYPE NATRIURETIC PEPTIDE,BNP [CHEM] Stat Lab 12/30/16 11:09 Ordered CBC WITH AUTO DIFF [HEME] Stat Lab 12/30/16 11:09 Ordered CK W CKMB [CHEM] Stat Lab 12/30/16 11:09 Ordered COMPREHENSIVE METABOLIC PN,CMP [CHEM] Stat Lab 12/30/16 11:09 Ordered INR,PT,PROTHROMBIN TIME [COAG] Stat Lab 12/30/16 11:09 Ordered LIPASE [CHEM] Stat Lab 12/30/16 11:09 Ordered TROPONIN I [CHEM] Stat Lab 12/30/16 11:09 Ordered UA W/MICROSCOPIC [URIN] Stat Lab 12/30/16 11:09 Uncollected Potassium Chloride [KCl 10 MEQ in Water 100 ML] 10 meq Med 12/30/16 12:08 Active Premix Bag 1 bag IV ONETIME Peripheral IV Insertion Adult [OM.PC] Stat Oth 12/30/16 11:09 Ordered Medication Orders Potassium Chloride 10 meq/ (Premix) 100 mls @ 100 mls/hr IV ONETIME ONE Stop: 12/30/16 13:07 Last Admin: 12/30/16 12:17 Dose: 100 mls/hr Labs: Laboratory Tests 12/30/16 12/30/16 12/30/16 Range/Units 11:25 11:25 11:25 WBC 12.9 H (5.0-10.0) 10^3/uL RBC 5.18 (4.2-5.4) 10^6/uL Hgb 16.1 H D (12.0-16.0) g/dL Hct 47.2 H (37.0-47.0) % MCV 91.1 (80-100) fL MCH 31.1 (27.0-34.0) pg MCHC 34.1 (33.0-35.0) g/dL Plt Count 231 (150-450) 10^3/uL Neut % (Auto) 57.5 (42.2-75.2) % Lymph % (Auto) 18.6 L (20.5-50.1) % Tyrrell % (Auto) 19.7 H (2-8) % Eos % (Auto) 3.7 H (1.0-3.0) % Baso % (Auto) 0.5 (0.0-1.0) % PT (9.0-12.0) SEC INR (0.9-1.2) Sodium 136 (135-145) mmol/L Potassium 2.9 L (3.6-5.0) mmol/L Chloride 94 L (101-111) mmol/L Carbon Dioxide 30.0 (21.0-31.0) mmol/L Anion Gap 14.9 BUN 45 H (7-18) mg/dL Creatinine 1.6 H (0.6-1.3) mg/dL Est Cr Clr Drug Dosing 23.66 mL/min Estimated GFR (MDRD) 31 BUN/Creatinine Ratio 28.12 Glucose 71 L (74-105) mg/dL Calcium 10.8 H (8.4-10.2) mg/dl Total Bilirubin 1.1 H (0.2-1.0) mg/dL AST 37 (10-42) IU/L ALT 28 (10-60) IU/L Alkaline Phosphatase 112 (42-121) IU/L Creatine Kinase 44 (26-174) IU/L Creatine Kinase Index 3.9 H (0-2.4) % CK-MB (CK-2) 1.70 (0.4-4.7) ng/mL Troponin I 0.04 H* (0.00-0.02) ng/ml B-Natriuretic Peptide 216 H (0-100) pg/ml Total Protein 7.7 (6.7-8.2) g/dl Albumin 4.4 (3.2-5.5) g/dl Globulin 3.3 Albumin/Globulin Ratio 1.33 Amylase 48 (28-100) U/L Lipase 36 (22-51) U/L 12/30/16 Range/Units 11:25 WBC (5.0-10.0) 10^3/uL RBC (4.2-5.4) 10^6/uL Hgb (12.0-16.0) g/dL Hct (37.0-47.0) % MCV (80-100) fL MCH (27.0-34.0) pg MCHC (33.0-35.0) g/dL Plt Count (150-450) 10^3/uL Neut % (Auto) (42.2-75.2) % Lymph % (Auto) (20.5-50.1) % Tyrrell % (Auto) (2-8) % Eos % (Auto) (1.0-3.0) % Baso % (Auto) (0.0-1.0) % PT 15.8 H (9.0-12.0) SEC INR 1.6 H (0.9-1.2) Sodium (135-145) mmol/L Potassium (3.6-5.0) mmol/L Chloride (101-111) mmol/L Carbon Dioxide (21.0-31.0) mmol/L Anion Gap BUN (7-18) mg/dL Creatinine (0.6-1.3) mg/dL Est Cr Clr Drug Dosing mL/min Estimated GFR (MDRD) BUN/Creatinine Ratio Glucose (74-105) mg/dL Calcium (8.4-10.2) mg/dl Total Bilirubin (0.2-1.0) mg/dL AST (10-42) IU/L ALT (10-60) IU/L Alkaline Phosphatase (42-121) IU/L Creatine Kinase (26-174) IU/L Creatine Kinase Index (0-2.4) % CK-MB (CK-2) (0.4-4.7) ng/mL Troponin I (0.00-0.02) ng/ml B-Natriuretic Peptide (0-100) pg/ml Total Protein (6.7-8.2) g/dl Albumin (3.2-5.5) g/dl Globulin Albumin/Globulin Ratio Amylase (28-100) U/L Lipase (22-51) U/L Meds: Medications Generic Name Dose Route Start Last Admin Trade Name Freq PRN Reason Stop Dose Admin Potassium Chloride 10 meq/ 100 mls @ 100 mls/hr 12/30/16 12:08 12/30/16 12:17 Premix IV 12/30/16 13:07 100 mls/hr ONETIME ONE Administration Discontinued Medications Generic Name Dose Route Start Last Admin Trade Name Freq PRN Reason Stop Dose Admin Lidocaine HCl 1 ml 12/30/16 12:45 Xylocaine-Mpf 1% INJECT 12/30/16 12:46 ONETIME ONE Warfarin Sodium 5 mg 12/30/16 12:15 12/30/16 12:26 Coumadin PO 12/30/16 12:16 5 mg ONETIME ONE Administration - Radiology Interpretation Free Text/Narrative:: CXR: KALSOMINER shunt present at Rt neck/chest. No acute cardiopulm. process, see Rad. report. - Re-Assessments/Exams Free Text/Narrative Re-Assessment/Exam: 12/30/16 12:44 I explained the exam findings, results of all diagnostic tests, working diagnosis, and any potential or additionally considered diagnoses, treatment/ disposition plan of admission, rational for the diagnosis/treatment plan/ disposition plan, anticipated course of illness, and follow up instructions to the pt, The pt acknowledges understanding of the above explanation(s), and agrees to be admitted. Case was reviewed in person in the ER with Dr. Gallegos, and she agrees to accept the pt as an admission to her hospitalist service. Departure - Departure Time of Disposition: 12:59 (admitted to Dr. Gallegos) Disposition: Refer to Observation Condition: Undetermined Clinical Impression: Chest pressure, Hypokalemia, Chronic atrial fibrillation Leukocytosis, unspecified Qualifiers: Leukocytosis type: unspecified Qualified Code(s): D72.829 - Elevated white blood cell count, unspecified Forms: ED Department Discharge - My Orders Last 24 Hours: My Active Orders 12/30/16 Chest 1V Frontal [CR] Routine 12/30/16 11:09 Chest 1V Frontal [CR] Stat AMYLASE [CHEM] Stat B-TYPE NATRIURETIC PEPTIDE,BNP [CHEM] Stat CBC WITH AUTO DIFF [HEME] Stat CK W CKMB [CHEM] Stat COMPREHENSIVE METABOLIC PN,CMP [CHEM] Stat INR,PT,PROTHROMBIN TIME [COAG] Stat LIPASE [CHEM] Stat TROPONIN I [CHEM] Stat UA W/MICROSCOPIC [URIN] Stat Peripheral IV Insertion Adult [OM.PC] Stat 12/30/16 11:17 EKG 12 Lead [EKG Documentation Completion] [RC] STAT 12/30/16 12:08 Potassium Chloride [KCl 10 MEQ in Water 100 ML] 10 meq Premix Bag 1 bag IV ONETIME - Assessment/Plan Last 24 Hours: My Active Orders 12/30/16 Chest 1V Frontal [CR] Routine 12/30/16 11:09 Chest 1V Frontal [CR] Stat AMYLASE [CHEM] Stat B-TYPE NATRIURETIC PEPTIDE,BNP [CHEM] Stat CBC WITH AUTO DIFF [HEME] Stat CK W CKMB [CHEM] Stat COMPREHENSIVE METABOLIC PN,CMP [CHEM] Stat INR,PT,PROTHROMBIN TIME [COAG] Stat LIPASE [CHEM] Stat TROPONIN I [CHEM] Stat UA W/MICROSCOPIC [URIN] Stat Peripheral IV Insertion Adult [OM.PC] Stat 12/30/16 11:17 EKG 12 Lead [EKG Documentation Completion] [RC] STAT 12/30/16 12:08 Potassium Chloride [KCl 10 MEQ in Water 100 ML] 10 meq Premix Bag 1 bag IV ONETIME
[2016-12-30] MEDS ORDERED: Potassium Chloride 10 MEQ in Premix Bag 1 BAG IV ONE (12:08)
[2016-12-30] MEDS ORDERED: Warfarin 5 MG Tab PO ONE (12:15)
[2016-12-30] MEDS ORDERED: Lidocaine 1% 10 ML MDV INJECT ONE (12:24)
[2016-12-30] MEDS ORDERED: Lidocaine 1% 30 ML SDV INJECT ONE (12:45)
[2016-12-30] MEDS ORDERED: Carboxymethylcellulose Sodium 1% Ophth Gel 0.4 ML UD EYEBOTH PRN (13:53)
[2016-12-30] MEDS ORDERED: Nitroglycerin 0.4 MG Tab.SL SL PRN (13:53)
[2016-12-30] MEDS ORDERED: Psyllium Husk Powder Sugar Free 5.85 GM Packet PO PRN (13:53)
[2016-12-30] MEDS ORDERED: Acetaminophen 325 MG Tab PO PRN (13:53)
[2016-12-30] MEDS: Bumetanide 1 MG Tab PO SCH (15:39)
[2016-12-30] MEDS: Potassium Chloride 10 MEQ in Premix Bag 1 BAG IV SCH ×2 (16:11→18:32)
[2016-12-30] MEDS: Cholecalciferol (Vitamin D3) 400 Unit Tab PO SCH ×2 (17:11→21:23)
[2016-12-30] MEDS: Isosorbide Mononitrate 60 MG Tab.ER PO SCH (17:12)
[2016-12-30] MEDS: Meclizine 12.5 MG Tab PO SCH ×2 (17:12→21:25)
[2016-12-30] MEDS: Insulin Aspart 100 Units/ML 3 ML Pen SUBCUT SCH (17:25)
[2016-12-30] MEDS: Potassium Chloride 10 MEQ Tab.ER PO SCH (17:31)
--- NOTE | 2016-12-30 17:32 | PCM.HP ---
H&P History of Present Illness - General Date of Service: 12/30/16 Admit Problem/Dx: Admission Diagnosis/Problem Admission Diagnosis/Problem Hypokalemia Source of Information: Patient History Limitations: Reports: No Limitations - History of Present Illness Initial Comments - Free Text/Narative: Patient is a 76 year old female came to the emergency room due sensation of having a fast heart rate, nausea and overall not feeling good. this has been going on over the weekend two days ago, called ER and was told to come in if heart rate is more than 100bpm. this morning, she had a heart rate of 109 via her own monitor and that time had an episode of dizziness and chest heaviness. she has been compliant with her medications. denies any fever and chills, no cough, no PND, no note of any leg swelling. 3 days prior to admission, she had an episode of loose stools. the next day, she resume her normal bowel movements. she lives alone and no sick contacts. was admitted in [place] last August and a heart catheterization was done which showed mild obstructive coronary disease. she has had borderline troponins. During her stay in the ER, she somehow felt good however was noted to have hypokalemia. given the cardiac conditions, advised to be admitted. Middle Anterior Chest Pain Score (Numeric/FACES): 4 - Related Data Allergies/Adverse Reactions: Allergies Allergy/AdvReac Type Severity Reaction Status Date / Time codeine Allergy Severe Rash Verified 12/30/16 14:09 Iodinated Contrast- Oral and Allergy Severe Other Verified 12/30/16 14:09 IV Dye [Iodinated Contrast Media - IV Dye] Penicillins Allergy Severe Hives Verified 12/30/16 14:09 pentazocine [From Talwin] Allergy Severe Delusions Verified 12/30/16 14:09 Sulfa (Sulfonamide Allergy Severe Hives Verified 12/30/16 14:09 Antibiotics) sulfamethoxazole Allergy Severe Hives Verified 12/30/16 14:09 [From Bactrim] trimethoprim [From Bactrim] Allergy Severe Hives Verified 12/30/16 14:09 ampicillin Allergy Intermediate Hives Verified 12/30/16 14:09 atorvastatin calcium Allergy Mild Muscle Verified 12/30/16 14:09 [From Lipitor] Aches duloxetine HCl Allergy Mild Nausea Verified 12/30/16 14:09 [From Cymbalta] indomethacin [From Indocin] Allergy Mild Headache Verified 12/30/16 14:09 indomethacin sodium Allergy Mild Headache Verified 12/30/16 14:09 [From Indocin] lactose Allergy Mild Diarrhea Verified 12/30/16 14:09 lisinopril Allergy Mild Cough Verified 12/30/16 14:09 metolazone Allergy Mild Muscle Verified 12/30/16 14:09 Aches metoprolol Allergy Mild Fatigue Verified 12/30/16 14:09 oxycodone [Oxycodone] Allergy Mild Other Verified 12/30/16 14:09 pravastatin Allergy Mild Muscle Verified 12/30/16 14:09 Aches simvastatin Allergy Mild Muscle Verified 12/30/16 14:09 Aches spironolactone Allergy Mild Headache Verified 12/30/16 14:09 tuberculin, purified protein Allergy Mild Rash Verified 12/30/16 14:09 deriva [tuberculin,purif.prot.deriv.] clonazepam [From Klonopin] Allergy Other Verified 12/30/16 14:09 hydrochlorothiazide Allergy Lethargy Verified 12/30/16 14:09 tetanus toxoid, adsorbed Allergy Other Verified 12/30/16 14:09 zoster vaccine live Allergy Cannot Verified 12/30/16 14:09 Remember Home Medications: Home Meds Bumetanide [Bumex] 4 mg PO BID 11/25/13 [History] Insulin Glarg,Human.Rec.Analog [LantUS] 75 unit SQ BID 11/25/13 [History] Isosorbide Mononitrate [Imdur] 60 mg PO DAILY 11/25/13 [History] LORazepam [Ativan] 1 mg PO BEDTIME PRN 11/25/13 [History] Levothyroxine Sodium [Synthroid] 150 mcg PO ACBREAKFAST 11/25/13 [History] Nitroglycerin [Nitrostat] 0.4 mg SL Q5M PRN MDD 3 11/25/13 [History] Psyllium [Metamucil SF] 1 tbsp PO DAILY PRN 11/25/13 [History] amLODIPine Besylate [Amlodipine Besylate] 2.5 mg PO DAILY 11/25/13 [History] Acetaminophen 650 mg PO Q6HR PRN 03/28/15 [History] Albuterol [Proventil HFA] 2 inh INH ASDIRECTED PRN 03/28/15 [History] Potassium Chloride [Potassium Chloride] 40 meq PO TID 03/28/15 [History] Cholecalciferol (Vitamin D3) [Vitamin D3] 1,000 units PO TID 03/29/15 [History] Warfarin [Coumadin] 3 mg PO DAILY 10/30/15 [History] hydrALAZINE HCl [Hydralazine HCl] 50 mg PO BID 10/30/15 [History] Albuterol [Proventil Neb Soln] 1 ampule INH Q6H PRN 03/27/16 [History] Carvedilol [Coreg] 6.25 mg PO BIDMEALS 03/27/16 [History] Cyanocobalamin (Vitamin B12) [Vitamin B12] 500 mcg PO BEDTIME 03/27/16 [History] Hypromellose/PF [Retaine Hpmc 0.3% Eye Drops] 1 drop EYEBOTH Q4H PRN 03/27/16 [ History] Meclizine [Antivert] 25 mg PO QID PRN 03/27/16 [History] Pantoprazole Sodium [Protonix] 40 mg PO DAILY 03/27/16 [History] Docusate Sodium 100 mg PO BID 08/30/16 [History] Insulin Aspart [Novolog Flexpen] 56 units SUBCUT TID 08/30/16 [History] Metolazone 2.5 mg PO ASDIRECTED 08/30/16 [History] aMILoride HCl [Amiloride HCl] 5 mg PO BID 08/30/16 [History] Past Medical History HEENT History: Reports: Cataract, Impaired Vision, Other (See Below) Other HEENT History: HEARING LOSS TOTAL-RIGHT PARTIAL-LEFT, WEARS BILAT HEARING AIDES Cardiovascular History: Reports: Afib, CAD, Heart Failure, Hypertension, [place], Stents, Other (See Below) Other Cardiovascular History: CAROTID ARTERY DISEASE. HEART FAILURE WITH PRESERVED EJECTION FRACTION. HYPERTENSIVE HEART DISEASE. 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 SUBDURAL HEMATOMA. lorazepam controls headaches from shunt Psychiatric History: Reports: Depression Endocrine/Metabolic History: Reports: Diabetes, Type II, Hypothyroidism, Obesity /BMI 30+, Osteoporosis, Vitamin D Deficiency Hematologic History: Reports: Blood Transfusion(s) Immunologic History: Reports: None Oncologic (Cancer) History: Reports: Malignant Melanoma Dermatologic History: Reports: None - Infectious Disease History Infectious Disease History: Reports: Chicken Pox, Measles, Mumps, Shingles - Past Surgical History Head Surgeries/Procedures: Reports: Shunt HEENT Surgical History: Reports: Adenoidectomy, Cataract Surgery, Tonsillectomy Cardiovascular Surgical History: Reports: Carotid Endarterectomy, Coronary Artery Stent Respiratory Surgical History: Reports: None GI Surgical History: Reports: Appendectomy, Colonoscopy, EGD, Polypectomy, Other (See Below) Other GI Surgeries/Procedures: large colon mostly resected - annotated redundant bowel Female Surgical History: Reports: Breast Biopsy, Cystectomy, Hysterectomy, Salpingo-Oophorectomy, Other (See Below) Other Female Surgeries/Procedures: breast cyst Endocrine Surgical History: Reports: None Neurological Surgical History: Reports: Other (See Below) Other Neurological Surgeries/Procedures: spinal tap and AUTOMATIC BANDSAW TENDER shunt (2007) Musculoskeletal Surgical History: Reports: None Oncologic Surgical History: Reports: Biopsy of Breast Dermatological Surgical History: Reports: None Social & Family History - Family History Family Medical History: Noncontributory - Tobacco Use Smoking Status *Q: Never Smoker Years of Tobacco use: 10 Used Tobacco, but Quit: Yes Month Tobacco Last Used: 06/11/1982 Second Hand Smoke Exposure: No - Caffeine Use Caffeine Use: Reports: None - Alcohol Use Days Per Week of Alcohol Use: 0 - Recreational Drug Use Recreational Drug Use: No Drug Use in Last 12 Months: No - Living Situation & Occupation Living situation: Reports: with Family Occupation: Retired H&P Review of Systems - Review of Systems: Review Of Systems: See Below General: Reports: Weakness HEENT: Reports: No Symptoms Pulmonary: Reports: No Symptoms Cardiovascular: Reports: Chest Pain, Palpitations Gastrointestinal: Reports: Nausea Genitourinary: Reports: No Symptoms Exam - Exam Exam: See Below - Vital Signs Vital Signs: Last Vital Signs Temp 36.5 C 12/30/16 13:56 Pulse 81 12/30/16 13:56 Resp 20 12/30/16 13:56 BP 155/72 H 12/30/16 13:56 Pulse Ox 97 12/30/16 13:56 Weight: 102.693 kg - Exam General: Alert, Oriented Lungs: Decreased Breath Sounds Cardiovascular: Regular Rate, Regular Rhythm GI/Abdominal Exam: Soft, Non-Tender Extremities: No Pedal Edema - Patient Data Lab Results Last 24 hrs: Laboratory Results - last 24 hr 12/30/16 Range/Units 16:42 POC Glucose 264 H (83-110) mg/dl Result Diagrams: 12/31/16 06:18 12/31/16 13:55 *Q Meaningful Use (ADM) - VTE *Q VTE Criteria *Q: - Stroke *Q Stroke Criteria *Q: - AMI *Q AMI Criteria *Q: Problem List Initiated/Reviewed/Updated: Yes Orders Last 24hrs: Active Orders 24 hr Category Date Time Status Blood Glucose Check, Bedside [] QIDACANDBED Care 12/30/16 13:59 Active Daily Weight [Height and Weight] [] 0600 Care 12/30/16 13:58 Active Intake and Output Strict [] ASDIRECTED Care 12/30/16 13:58 Active Telemetry Monitoring [Cardiac Monitoring] [] 08,20 Care 12/30/16 16:34 Active POTASSIUM,K [CHEM] Routine Lab 12/30/16 18:00 Ordered TROPONIN I [CHEM] Routine Lab 12/30/16 18:00 Ordered Medication Orders Acetaminophen (Tylenol) 650 mg PO Q6HR PRN PRN Reason: Pain Albuterol (Proventil Neb Soln) 2.5 mg INH Q6HRRT [facility] Amlodipine Besylate (Norvasc) 2.5 mg PO DAILY [facility] Artificial Tears (Refresh Celluvisc) 1 each EYEBOTH Q4H PRN PRN Reason: Dry Eyes Bumetanide (Bumex) 4 mg PO BIDDIURETIC [facility] Last Admin: 12/30/16 15:39 Dose: 4 mg Carvedilol (Coreg) 6.25 mg PO BIDMEALS [facility] Cholecalciferol (Vitamin D3) 1,000 units PO TID [facility] Last Admin: 12/30/16 17:11 Dose: 1,000 units Cyanocobalamin (Vitamin B12) 500 mcg PO BEDTIME [facility] Docusate Sodium (Colace) 100 mg PO BID [facility] Hydralazine HCl (Apresoline) 50 mg PO BID [facility] Insulin Aspart (Novolog) 56 unit SUBCUT TIDMEALS [facility] Insulin Detemir (Levemir) 75 unit SUBCUT BID [facility] Isosorbide Mononitrate (Imdur) 60 mg PO BIDAC [facility] Last Admin: 12/30/16 17:12 Dose: 60 mg Levothyroxine Sodium (Levothyroxine) 150 mcg PO ACBREAKFAST [facility] Lorazepam (Ativan) 1 mg PO BEDTIME PRN PRN Reason: Insomnia Meclizine HCl (Antivert) 25 mg PO QID [facility] Last Admin: 12/30/16 17:12 Dose: Not Given Metolazone (Zaroxolyn) 2.5 mg PO SuTh@0900 [facility] Nitroglycerin (Nitrostat) 0.4 mg SL Q5M PRN PRN Reason: Chest Pain Non-Formulary Medication (Amiloride Hcl) 5 mg PO BID [facility] Pantoprazole Sodium (Protonix) 40 mg PO ACBRK [facility] Potassium Chloride (Klor-Con 10) 40 meq PO TIDMEALS [facility] Psyllium Husk (Metamucil Sugar Free) 1 pkt PO DAILY PRN PRN Reason: Constipation Warfarin Sodium (Coumadin) 3 mg PO DAILY@1400 [facility] Assessment/Plan Comment:: Hypokalemia - she was given Kcl 10meq IV at the emergency room - will add KCL 20meq IV. - recheck magnesium - recheck Potassium and replace if needed palpitations on a patient with atrial fibrillation - currently rate controlled - hook to telemetery - resume meds: on warfarin for anticoagulation; on coreg and amlodipine Diabetes mellitus - resume glargine and premeals novolog - blood glucose checks premeals and at bedtime and add sliding scale leukocytosis - no left shift - patient afebrile - monitor CBC, await urinalysis history of Coronary artery disease - patient has chronic borderline troponin - recheck troponin 6 hours later HIstory of CHF, currently clinically stable - ejection fraction on latest cath showed 60% - previous echo showed diastolic dysfunction - resume metolazone and amiloride - strict input and output and do daily weight Hypothyroidism - continue current dose of synthoid, recheck TSH Hypertension, stable - resume meds wtih holding parameters - on Coreg, amlodipine, hydralazine, amiloride, Imdur, diuretics Code status: full code
[2016-12-30] MEDS: Carvedilol 6.25 MG Tab PO SCH (17:34)
[2016-12-30] MEDS ORDERED: Sodium Chloride 0.9% 10 ML Syringe FLUSH PRN (17:36)
[2016-12-30] MEDS: Albuterol 0.083% 2.5 MG/3 ML Neb Soln INH SCH ×2 (18:29→18:31)
[2016-12-30] MEDS: Insulin Detemir 100 Units/ML 3 ML Pen SUBCUT SCH (21:21)
[2016-12-30] MEDS: Docusate Sodium 100 MG Cap PO SCH (21:23)
[2016-12-30] MEDS: hydrALAZINE 25 MG Tab PO SCH (21:24)
[2016-12-30] MEDS: LORazepam 1 MG Tab PO PRN (21:25)
[2016-12-30] MEDS: Cyanocobalamin (Vitamin B12) 100 MCG Tab PO SCH (22:42)
[2016-12-31] MEDS: Albuterol 0.083% 2.5 MG/3 ML Neb Soln INH SCH ×4 (00:47→18:17)
[2016-12-31] MEDS: Isosorbide Mononitrate 60 MG Tab.ER PO SCH ×2 (06:40→17:41)
[2016-12-31] MEDS: Levothyroxine 150 MCG Tab PO SCH (06:40)
[2016-12-31] MEDS: Pantoprazole 40 MG Tab.CR PO SCH (06:40)
[2016-12-31] MEDS ORDERED: Potassium Chloride 20 MEQ in Premix Bag 1 BAG IV ONE (07:37)
[2016-12-31] MEDS: Carvedilol 6.25 MG Tab PO SCH ×2 (08:06→17:41)
[2016-12-31] MEDS: Potassium Chloride 10 MEQ Tab.ER PO SCH ×3 (08:07→17:41)
[2016-12-31] MEDS: Bumetanide 1 MG Tab PO SCH ×2 (08:07→14:28)
[2016-12-31] MEDS: Docusate Sodium 100 MG Cap PO SCH ×2 (09:40→21:46)
[2016-12-31] MEDS: Cholecalciferol (Vitamin D3) 400 Unit Tab PO SCH ×3 (09:40→21:46)
[2016-12-31] MEDS: amLODIPine 5 MG Tab PO SCH (09:47)
[2016-12-31] MEDS: Meclizine 12.5 MG Tab PO SCH ×4 (09:48→21:49)
[2016-12-31] MEDS: hydrALAZINE 25 MG Tab PO SCH ×2 (09:48→21:57)
[2016-12-31] MEDS ORDERED: Insulin Aspart 100 Units/ML 3 ML Pen SUBCUT ONE (09:56)
[2016-12-31] MEDS ORDERED: Potassium Chloride 10 MEQ Tab.ER PO ONE (09:56)
[2016-12-31] MEDS: AMILORIDE HCL 5 MG PO SCH ×3 (10:02→21:45)
[2016-12-31] MEDS: Insulin Aspart 100 Units/ML 3 ML Pen SUBCUT SCH ×4 (10:47→17:42)
[2016-12-31] MEDS: Insulin Detemir 100 Units/ML 3 ML Pen SUBCUT SCH ×2 (11:00→11:18)
--- NOTE | 2016-12-31 12:50 | CR ---
Clinical history: 76-year-old female with chest pain. Interpretation: Reasonable inspiratory effort obese female with chronic mild cardiomegaly and apparen t ventriculoperitoneal shunt. External surveillance system monitor leads. No new cephalization of vascular flow, signs of alveolar edema or dependent pleural effusion when com pared directly to 15 September 2016 exam. No new lung mass, hilar lymphadenopathy or focal lobar pneumonia. No atelectasis/collapse. No pneumothorax. CONCLUSION: No acute new cardiopulmonary abnormality since 15 September 2016 exam.
[2016-12-31] MEDS ORDERED: Insulin Aspart 100 Units/ML 3 ML Pen SUBCUT SCH (17:00)
[2016-12-31] MEDS ORDERED: Insulin Detemir 100 Units/ML 3 ML Pen SUBCUT SCH (21:00)
[2016-12-31] MEDS: LORazepam 1 MG Tab PO PRN (21:51)
[2016-12-31] MEDS: Cyanocobalamin (Vitamin B12) 100 MCG Tab PO SCH (21:51)
[2017-01-01] MEDS: Albuterol 0.083% 2.5 MG/3 ML Neb Soln INH SCH ×2 (01:40→07:12)
--- NOTE | 2017-01-01 05:12 | PCM.PN ---
- General Info Date of Service: 12/31/16 Subjective Update: Patient did not get good sleep. But otherwise, reports that nausea is better. no chest pain nor heaviness. no palpitations. tolerating diet. no new issues. - Patient Data Vitals - Most Recent: Last Vital Signs Temp 36.8 C 12/31/16 19:37 Pulse 88 12/31/16 19:37 Resp 20 12/31/16 19:37 BP 109/54 L 12/31/16 21:57 Pulse Ox 98 12/31/16 19:37 Weight - Most Recent: 226 lb 6.4 oz I&O - Last 24 Hours: Intake & Output 12/31/16 12/31/16 01/01/17 14:59 22:59 06:59 Intake Total 340 250 Output Total 750 Balance 340 -500 Lab Results Last 24 Hours: Laboratory Results - last 24 hr 12/31/16 12/31/16 12/31/16 Range/Units 06:18 06:18 06:18 WBC 8.8 (5.0-10.0) 10^3/uL RBC 4.46 (4.2-5.4) 10^6/uL Hgb 14.1 D (12.0-16.0) g/dL Hct 41.7 (37.0-47.0) % MCV 93.5 (80-100) fL MCH 31.6 (27.0-34.0) pg MCHC 33.8 (33.0-35.0) g/dL RDW Not Reportable RDW Coeff of Dariel Not Reportable Plt Count 170 (150-450) 10^3/uL MPV Not Reportable Neutrophils % (Manual) 59 (42-75) % Band Neutrophils % 1 % Lymphocytes % (Manual) 22 (20-50) % Monocytes % (Manual) 11 H (2-8) % Eosinophils % (Manual) 6 H (1-3) % Basophils % (Manual) 1 Atypical Lymphocytes Few Platelet Estimate Adequate PT 18.4 H (9.0-12.0) SEC INR 1.8 H (0.9-1.2) Sodium 133 L (135-145) mmol/L Potassium 3.1 L (3.6-5.0) mmol/L Chloride 92 L (101-111) mmol/L Carbon Dioxide 29.0 (21.0-31.0) mmol/L Anion Gap 15.1 BUN 48 H (7-18) mg/dL Creatinine 1.7 H (0.6-1.3) mg/dL Est Cr Clr Drug Dosing 22.27 mL/min Estimated GFR (MDRD) 29 Glucose 192 H (74-105) mg/dL POC Glucose (83-110) mg/dl Calcium 9.7 (8.4-10.2) mg/dl Magnesium 2.1 (1.8-2.5) mg/dL TSH, Ultra Sensitive (0.45-5.33) uIu/mL Urine Color (YELLOW) Urine Appearance (CLEAR) Urine pH (5.0-9.0) Ur Specific [place] (1.005-1.030) Urine Protein (NEGATIVE) Urine Glucose (UA) (NEGATIVE) Urine Ketones (NEGATIVE) Urine Occult Blood (NEGATIVE) Urine Nitrite (NEGATIVE) Urine Bilirubin (NEGATIVE) Urine Urobilinogen (0.2-1.0) mg/dL Ur Leukocyte Esterase (NEGATIVE) Urine RBC /HPF Urine WBC (0-5/HPF) /HPF Ur Epithelial Cells /HPF Urine Bacteria (0-FEW/HPF) /HPF Urine Mucus /LPF 12/31/16 12/31/16 12/31/16 Range/Units 06:18 07:49 11:46 WBC (5.0-10.0) 10^3/uL RBC (4.2-5.4) 10^6/uL Hgb (12.0-16.0) g/dL Hct (37.0-47.0) % MCV (80-100) fL MCH (27.0-34.0) pg MCHC (33.0-35.0) g/dL RDW RDW Coeff of Dariel Plt Count (150-450) 10^3/uL MPV Neutrophils % (Manual) (42-75) % Band Neutrophils % % Lymphocytes % (Manual) (20-50) % Monocytes % (Manual) (2-8) % Eosinophils % (Manual) (1-3) % Basophils % (Manual) Atypical Lymphocytes Platelet Estimate PT (9.0-12.0) SEC INR (0.9-1.2) Sodium (135-145) mmol/L Potassium (3.6-5.0) mmol/L Chloride (101-111) mmol/L Carbon Dioxide (21.0-31.0) mmol/L Anion Gap BUN (7-18) mg/dL Creatinine (0.6-1.3) mg/dL Est Cr Clr Drug Dosing mL/min Estimated GFR (MDRD) Glucose (74-105) mg/dL POC Glucose 177 H 292 H (83-110) mg/dl Calcium (8.4-10.2) mg/dl Magnesium (1.8-2.5) mg/dL TSH, Ultra Sensitive 1.18 (0.45-5.33) uIu/mL Urine Color (YELLOW) Urine Appearance (CLEAR) Urine pH (5.0-9.0) Ur Specific [place] (1.005-1.030) Urine Protein (NEGATIVE) Urine Glucose (UA) (NEGATIVE) Urine Ketones (NEGATIVE) Urine Occult Blood (NEGATIVE) Urine Nitrite (NEGATIVE) Urine Bilirubin (NEGATIVE) Urine Urobilinogen (0.2-1.0) mg/dL Ur Leukocyte Esterase (NEGATIVE) Urine RBC /HPF Urine WBC (0-5/HPF) /HPF Ur Epithelial Cells /HPF Urine Bacteria (0-FEW/HPF) /HPF Urine Mucus /LPF 12/31/16 12/31/16 12/31/16 Range/Units 13:55 16:00 16:59 WBC (5.0-10.0) 10^3/uL RBC (4.2-5.4) 10^6/uL Hgb (12.0-16.0) g/dL Hct (37.0-47.0) % MCV (80-100) fL MCH (27.0-34.0) pg MCHC (33.0-35.0) g/dL RDW RDW Coeff of Dariel Plt Count (150-450) 10^3/uL MPV Neutrophils % (Manual) (42-75) % Band Neutrophils % % Lymphocytes % (Manual) (20-50) % Monocytes % (Manual) (2-8) % Eosinophils % (Manual) (1-3) % Basophils % (Manual) Atypical Lymphocytes Platelet Estimate PT (9.0-12.0) SEC INR (0.9-1.2) Sodium (135-145) mmol/L Potassium 3.9 (3.6-5.0) mmol/L Chloride (101-111) mmol/L Carbon Dioxide (21.0-31.0) mmol/L Anion Gap BUN (7-18) mg/dL Creatinine (0.6-1.3) mg/dL Est Cr Clr Drug Dosing mL/min Estimated GFR (MDRD) Glucose (74-105) mg/dL POC Glucose 250 H (83-110) mg/dl Calcium (8.4-10.2) mg/dl Magnesium (1.8-2.5) mg/dL TSH, Ultra Sensitive (0.45-5.33) uIu/mL Urine Color Yellow (YELLOW) Urine Appearance Clear (CLEAR) Urine pH 7.0 (5.0-9.0) Ur Specific [place] 1.015 (1.005-1.030) Urine Protein Negative (NEGATIVE) Urine Glucose (UA) 250 H (NEGATIVE) Urine Ketones Negative (NEGATIVE) Urine Occult Blood Negative (NEGATIVE) Urine Nitrite Negative (NEGATIVE) Urine Bilirubin Negative (NEGATIVE) Urine Urobilinogen 0.2 (0.2-1.0) mg/dL Ur Leukocyte Esterase Trace H (NEGATIVE) Urine RBC 0-5 /HPF Urine WBC 0-5 (0-5/HPF) /HPF Ur Epithelial Cells Few /HPF Urine Bacteria Rare (0-FEW/HPF) /HPF Urine Mucus Rare /LPF 12/31/16 Range/Units 21:06 WBC (5.0-10.0) 10^3/uL RBC (4.2-5.4) 10^6/uL Hgb (12.0-16.0) g/dL Hct (37.0-47.0) % MCV (80-100) fL MCH (27.0-34.0) pg MCHC (33.0-35.0) g/dL RDW RDW Coeff of Dariel Plt Count (150-450) 10^3/uL MPV Neutrophils % (Manual) (42-75) % Band Neutrophils % % Lymphocytes % (Manual) (20-50) % Monocytes % (Manual) (2-8) % Eosinophils % (Manual) (1-3) % Basophils % (Manual) Atypical Lymphocytes Platelet Estimate PT (9.0-12.0) SEC INR (0.9-1.2) Sodium (135-145) mmol/L Potassium (3.6-5.0) mmol/L Chloride (101-111) mmol/L Carbon Dioxide (21.0-31.0) mmol/L Anion Gap BUN (7-18) mg/dL Creatinine (0.6-1.3) mg/dL Est Cr Clr Drug Dosing mL/min Estimated GFR (MDRD) Glucose (74-105) mg/dL POC Glucose 176 H (83-110) mg/dl Calcium (8.4-10.2) mg/dl Magnesium (1.8-2.5) mg/dL TSH, Ultra Sensitive (0.45-5.33) uIu/mL Urine Color (YELLOW) Urine Appearance (CLEAR) Urine pH (5.0-9.0) Ur Specific [place] (1.005-1.030) Urine Protein (NEGATIVE) Urine Glucose (UA) (NEGATIVE) Urine Ketones (NEGATIVE) Urine Occult Blood (NEGATIVE) Urine Nitrite (NEGATIVE) Urine Bilirubin (NEGATIVE) Urine Urobilinogen (0.2-1.0) mg/dL Ur Leukocyte Esterase (NEGATIVE) Urine RBC /HPF Urine WBC (0-5/HPF) /HPF Ur Epithelial Cells /HPF Urine Bacteria (0-FEW/HPF) /HPF Urine Mucus /LPF Med Orders - Current: Current Medications Acetaminophen (Tylenol) 650 mg PO Q6HR PRN PRN Reason: Pain Albuterol (Proventil Neb Soln) 2.5 mg INH Q6HRRT [facility] Last Admin: 01/01/17 01:40 Dose: Not Given Amlodipine Besylate (Norvasc) 2.5 mg PO DAILY [facility] Last Admin: 12/31/16 09:47 Dose: Not Given Artificial Tears (Refresh Celluvisc) 1 each EYEBOTH Q4H PRN PRN Reason: Dry Eyes Bumetanide (Bumex) 4 mg PO BIDDIURETIC [facility] Last Admin: 12/31/16 14:28 Dose: 4 mg Carvedilol (Coreg) 6.25 mg PO BIDMEALS [facility] Last Admin: 12/31/16 17:41 Dose: 6.25 mg Cholecalciferol (Vitamin D3) 1,000 units PO TID [facility] Last Admin: 12/31/16 21:46 Dose: 1,000 units Cyanocobalamin (Vitamin B12) 500 mcg PO BEDTIME [facility] Last Admin: 12/31/16 21:51 Dose: 500 mcg Docusate Sodium (Colace) 100 mg PO BID [facility] Last Admin: 12/31/16 21:46 Dose: 100 mg Hydralazine HCl (Apresoline) 50 mg PO BID [facility] Last Admin: 12/31/16 21:57 Dose: 50 mg Insulin Aspart (Novolog) 30 unit SUBCUT ACLUNCH [facility] Last Admin: 12/31/16 12:33 Dose: 30 units Insulin Aspart (Novolog) 38 unit SUBCUT ACDINNER [facility] Last Admin: 12/31/16 17:43 Dose: 38 units Insulin Aspart (Novolog) 0 unit SUBCUT TIDMEALS [facility] PRN Reason: Protocol Last Admin: 12/31/16 17:42 Dose: 6 units Insulin Detemir (Levemir) 75 unit SUBCUT DAILY [facility] Last Admin: 12/31/16 11:18 Dose: 75 units Insulin Detemir (Levemir) 62 unit SUBCUT BEDTIME [facility] Last Admin: 12/31/16 21:49 Dose: 62 units Isosorbide Mononitrate (Imdur) 60 mg PO BIDAC [facility] Last Admin: 12/31/16 17:41 Dose: 60 mg Levothyroxine Sodium (Levothyroxine) 150 mcg PO ACBREAKFAST [facility] Last Admin: 12/31/16 06:40 Dose: 150 mcg Lorazepam (Ativan) 1 mg PO BEDTIME PRN PRN Reason: Insomnia Last Admin: 12/31/16 21:51 Dose: 1 mg Meclizine HCl (Antivert) 25 mg PO QID [facility] Last Admin: 12/31/16 21:49 Dose: 25 mg Metolazone (Zaroxolyn) 2.5 mg PO SuTh@0900 [facility] Nitroglycerin (Nitrostat) 0.4 mg SL Q5M PRN PRN Reason: Chest Pain Pantoprazole Sodium (Protonix) 40 mg PO ACBRK [facility] Last Admin: 12/31/16 06:40 Dose: 40 mg Amiloride Hcl 5 Mg (*Pt's Own Med) 0 each PO BID [facility] Last Admin: 12/31/16 21:45 Dose: 1 each Potassium Chloride (Klor-Con 10) 50 meq PO TIDMEALS [facility] Last Admin: 12/31/16 17:41 Dose: 50 meq Psyllium Husk (Metamucil Sugar Free) 1 pkt PO DAILY PRN PRN Reason: Constipation Sodium Chloride (Saline Flush) 10 ml FLUSH ASDIRECTED PRN PRN Reason: Keep Vein Open Warfarin Sodium (Coumadin) 3 mg PO DAILY@1400 [facility] Last Admin: 12/31/16 14:28 Dose: 3 mg Discontinued Medications Potassium Chloride 10 meq/ (Premix) 100 mls @ 100 mls/hr IV ONETIME ONE Stop: 12/30/16 13:07 Last Infusion: 12/30/16 16:13 Dose: Infused Potassium Chloride 10 meq/ (Premix) 100 mls @ 100 mls/hr IV Q1H [facility] Stop: 12/30/16 16:59 Last Admin: 12/30/16 18:32 Dose: 50 mls/hr Potassium Chloride 20 meq/ (Premix) 100 mls @ 50 mls/hr IV ONETIME ONE Stop: 12/31/16 09:36 Last Admin: 12/31/16 08:06 Dose: 50 mls/hr Insulin Aspart (Novolog) 56 unit SUBCUT TIDMEALS [facility] Last Admin: 12/31/16 10:47 Dose: Not Given Insulin Aspart (Novolog) 29 unit SUBCUT ACBREAKFAST ONE Stop: 12/31/16 09:57 Last Admin: 12/31/16 10:46 Dose: Not Given Insulin Detemir (Levemir) 75 unit SUBCUT BID [facility] Last Admin: 12/31/16 11:00 Dose: Not Given Lidocaine HCl (Xylocaine-Mpf 1%) 1 ml INJECT ONETIME ONE Stop: 12/30/16 12:46 Last Admin: 12/30/16 12:54 Dose: Not Given Potassium Chloride (Klor-Con 10) 40 meq PO TIDMEALS [facility] Last Admin: 12/31/16 11:18 Dose: 40 meq Potassium Chloride (Klor-Con 10) 20 meq PO ONETIME ONE Stop: 12/31/16 09:57 Last Admin: 12/31/16 11:17 Dose: 20 meq Warfarin Sodium (Coumadin) 5 mg PO ONETIME ONE Stop: 12/30/16 12:16 Last Admin: 12/30/16 12:26 Dose: 5 mg - Exam Neck: Supple Lungs: Normal Respiratory Effort Cardiovascular: Regular Rate, Regular Rhythm Extremities: No Pedal Edema - Problem List Review Problem List Initiated/Reviewed/Updated: Yes - My Orders Last 24 Hours: My Active Orders 12/31/16 11:00 Insulin Aspart [NovoLOG] 30 unit SUBCUT ACLUNCH Insulin Detemir [Levemir] 75 unit SUBCUT DAILY 12/31/16 13:15 Insulin Aspart [NovoLOG] See Protocol SUBCUT TIDMEALS 12/31/16 16:00 CULTURE URINE [RM] Routine 12/31/16 17:00 Insulin Aspart [NovoLOG] 38 unit SUBCUT ACDINNER 12/31/16 18:00 Potassium Chloride [Klor-Con 10] 50 meq PO TIDMEALS 12/31/16 21:00 Insulin Detemir [Levemir] 62 unit SUBCUT BEDTIME 01/01/17 05:09 BASIC METABOLIC PANEL,BMP [CHEM] Routine MAGNESIUM [CHEM] Routine 01/01/17 06:00 INR,PT,PROTHROMBIN TIME [COAG] DAILY 01/02/17 06:00 INR,PT,PROTHROMBIN TIME [COAG] DAILY - Plan Plan:: Hypokalemia - replaced now but will ensure that is persistently normal as she is on diuretics and replacement palpitations on a patient with atrial fibrillation - currently rate controlled - hook to telemetery - resume meds: on warfarin for anticoagulation; on coreg and amlodipine Diabetes mellitus - resume glargine and premeals novolog - blood glucose checks premeals and at bedtime and add sliding scale leukocytosis - no left shift; resolved history of Coronary artery disease - patient has chronic borderline troponin - recheck troponin 6 hours later HIstory of CHF, currently clinically stable - ejection fraction on latest cath showed 60% - previous echo showed diastolic dysfunction - resume metolazone and amiloride - strict input and output and do daily weight Hypothyroidism - continue current dose of synthoid, TSH normal Hypertension, stable - resume meds wtih holding parameters - on Coreg, amlodipine, hydralazine, amiloride, Imdur, diuretics Code status: full code
[2017-01-01] MEDS: Isosorbide Mononitrate 60 MG Tab.ER PO SCH (06:06)
[2017-01-01] MEDS: Pantoprazole 40 MG Tab.CR PO SCH (06:06)
[2017-01-01] MEDS: Levothyroxine 150 MCG Tab PO SCH (06:06)
[2017-01-01] MEDS: Insulin Aspart 100 Units/ML 3 ML Pen SUBCUT SCH ×3 (08:22→12:38)
[2017-01-01] MEDS ORDERED: Insulin Aspart 100 Units/ML 3 ML Pen SUBCUT SCH (08:40)
[2017-01-01] MEDS: Bumetanide 1 MG Tab PO SCH (08:51)
[2017-01-01] MEDS: Docusate Sodium 100 MG Cap PO SCH (08:52)
[2017-01-01] MEDS: Potassium Chloride 10 MEQ Tab.ER PO SCH ×2 (08:52→12:37)
[2017-01-01] MEDS: Carvedilol 6.25 MG Tab PO SCH (08:52)
[2017-01-01] MEDS: amLODIPine 5 MG Tab PO SCH (08:53)
[2017-01-01] MEDS: Meclizine 12.5 MG Tab PO SCH ×2 (08:53→12:39)
[2017-01-01] MEDS: Insulin Detemir 100 Units/ML 3 ML Pen SUBCUT SCH (08:55)
[2017-01-01 09:34] VITALS: BP 113/52
[2017-01-01] MEDS: hydrALAZINE 25 MG Tab PO SCH (09:34)
[2017-01-01] MEDS: AMILORIDE HCL 5 MG PO SCH (09:34)
[2017-01-01] MEDS: Cholecalciferol (Vitamin D3) 400 Unit Tab PO SCH (09:38)
--- NOTE | 2017-01-01 10:14 | EKG ---
12/30/2016- CHIKIS BARRON - FINDINGS: EKG done on a 76-year-old female showing atrial fibrillation, heart rate of 75 beats per minute. PVCs noted. Prolonged QT interval. [facility] /[id number]
--- NOTE | 2017-01-01 12:10 | PCM.DCSUM1 ---
Discharge Summary - Hospital Course Brief History: Patient is a 76 year old female with history of coronary artery disease, diastolic dyfunction, CHF with preserved EF, CKD, was admitted due to hypokalemia. also has history of atrial fibrillation and on the day of admission had a heart of 109 and with chest pressure and palpitations and hence went to ER as she was advised prior that if heart is more than 100 to go to ER. reports that she has been compliant with her medications. - Discharge Data Discharge Date: 01/01/17 Discharge Disposition: Home, Self-Care 01 Condition: Stable - Discharge Diagnosis/Problem(s) (1) Chronic atrial fibrillation SNOMED Code(s): 651596965 ICD Code: I48.2 - CHRONIC ATRIAL FIBRILLATION Status: Acute Current Visit : Yes - Patient Summary/Data Hospital Course: Patient was admitted under observation. hooked to telemetry which did not show any acute events or significant changes. no episodes of fast rate. chest pressure or feeling of palpitations did not recurr during admission. her potassium was monitored and replaced. her troponin was repeated and this has been stable. of note, she has had chronic mild elevations of troponin. most likely deemed from her renal insufficiency. initially, she had MILD leukocytosis and this has resolved. no antibiotics given and she denies any signs of infection which includes coughing, dysuria or any diarrhea. ambulating good, tolerating meals good and has normal bowel movements. her warfarin continued and latest INR at therapeutic. - Patient Instructions Diet: Heart Healthy Diet Activity: As Tolerated Driving: Do Not Drive Showering/Bathing: May Shower Other/Special Instructions: your current potassium supplement is 40 three times a day. before seeing your provider tomorrow, you will have a blood test to follow your potassium. to come back to the emergency room if with emergent health concerns. - Discharge Plan Home Medications: Home Meds Bumetanide [Bumex] 4 mg PO BID 11/25/13 [History] Isosorbide Mononitrate [Imdur] 60 mg PO DAILY 11/25/13 [History] LORazepam [Ativan] 1 mg PO BEDTIME PRN 11/25/13 [History] Levothyroxine Sodium [Synthroid] 150 mcg PO ACBREAKFAST 11/25/13 [History] Nitroglycerin [Nitrostat] 0.4 mg SL Q5M PRN MDD 3 11/25/13 [History] Psyllium [Metamucil SF] 1 tbsp PO DAILY PRN 11/25/13 [History] amLODIPine Besylate [Amlodipine Besylate] 2.5 mg PO DAILY 11/25/13 [History] Acetaminophen 650 mg PO Q6HR PRN 03/28/15 [History] Albuterol [Proventil HFA] 2 inh INH ASDIRECTED PRN 03/28/15 [History] Potassium Chloride 40 meq PO TID 03/28/15 [History] Cholecalciferol (Vitamin D3) [Vitamin D3] 1,000 units PO TID 03/29/15 [History] Warfarin [Coumadin] 3 mg PO DAILY 10/30/15 [History] hydrALAZINE HCl [Hydralazine HCl] 50 mg PO BID 10/30/15 [History] Albuterol [Proventil Neb Soln] 1 ampule INH Q6H PRN 03/27/16 [History] Carvedilol [Coreg] 6.25 mg PO BIDMEALS 03/27/16 [History] Cyanocobalamin (Vitamin B12) [Vitamin B12] 500 mcg PO BEDTIME 03/27/16 [History] Hypromellose/PF [Retaine [facility] 0.3% Eye Drops] 1 drop EYEBOTH Q4H PRN 03/27/16 [ History] Meclizine [Antivert] 25 mg PO QID PRN 03/27/16 [History] Pantoprazole Sodium [Protonix] 40 mg PO DAILY 03/27/16 [History] Docusate Sodium 100 mg PO BID 08/30/16 [History] Metolazone 2.5 mg PO ASDIRECTED 08/30/16 [History] aMILoride HCl [Amiloride HCl] 5 mg PO BID 08/30/16 [History] Insulin Aspart [NovoLOG] 29 unit SUBCUT ACBREAKFAST pen 01/01/17 [Rx] Insulin Aspart [NovoLOG] 30 unit SUBCUT ACLUNCH pen 01/01/17 [Rx] Insulin Aspart [NovoLOG] 38 unit SUBCUT ACDINNER pen 01/01/17 [Rx] Insulin Detemir [Levemir] 62 unit SUBCUT BEDTIME pen 01/01/17 [Rx] Insulin Detemir [Levemir] 75 unit SUBCUT DAILY pen 11/08/17 [Rx] Patient Handouts: Hypokalemia, Heart Failure, [id number], Atrial Fibrillation , [id number] - Discharge Summary/Plan Comment DC Time >30 min.: No Discharge Summary/Plan Comment: follow up with PCP the next day with repeat blood work to follow potassium. to come back to the ER if with emergent health concerns. - Patient Data Vitals - Most Recent: Last Vital Signs Temp 36.3 C 01/01/17 08:45 Pulse 82 01/01/17 09:33 Resp 20 01/01/17 09:33 BP 113/52 L 01/01/17 09:34 Pulse Ox 94 L 01/01/17 09:33 Weight - Most Recent: 103.532 kg I&O - Last 24 hours: Intake & Output 12/31/16 01/01/17 01/01/17 22:59 06:59 14:59 Intake Total 340 350 Output Total 1400 Balance 340 -1050 Lab Results - Last 24 hrs: Laboratory Results - last 24 hr 12/31/16 12/31/16 12/31/16 Range/Units 13:55 16:00 16:59 PT (9.0-12.0) SEC INR (0.9-1.2) Sodium (135-145) mmol/L Potassium 3.9 (3.6-5.0) mmol/L Chloride (101-111) mmol/L Carbon Dioxide (21.0-31.0) mmol/L Anion Gap BUN (7-18) mg/dL Creatinine (0.6-1.3) mg/dL Est Cr Clr Drug Dosing mL/min Estimated GFR (MDRD) Glucose (74-105) mg/dL POC Glucose 250 H (83-110) mg/dl Calcium (8.4-10.2) mg/dl Magnesium (1.8-2.5) mg/dL Urine Color Yellow (YELLOW) Urine Appearance Clear (CLEAR) Urine pH 7.0 (5.0-9.0) Ur Specific [place] 1.015 (1.005-1.030) Urine Protein Negative (NEGATIVE) Urine Glucose (UA) 250 H (NEGATIVE) Urine Ketones Negative (NEGATIVE) Urine Occult Blood Negative (NEGATIVE) Urine Nitrite Negative (NEGATIVE) Urine Bilirubin Negative (NEGATIVE) Urine Urobilinogen 0.2 (0.2-1.0) mg/dL Ur Leukocyte Esterase Trace H (NEGATIVE) Urine RBC 0-5 /HPF Urine WBC 0-5 (0-5/HPF) /HPF Ur Epithelial Cells Few /HPF Urine Bacteria Rare (0-FEW/HPF) /HPF Urine Mucus Rare /LPF 12/31/16 01/01/17 01/01/17 Range/Units 21:06 06:00 06:00 PT 21.4 H (9.0-12.0) SEC INR 2.1 H (0.9-1.2) Sodium 137 (135-145) mmol/L Potassium 3.7 (3.6-5.0) mmol/L Chloride 97 L (101-111) mmol/L Carbon Dioxide 28.0 (21.0-31.0) mmol/L Anion Gap 15.7 BUN 51 H (7-18) mg/dL Creatinine 1.5 H (0.6-1.3) mg/dL Est Cr Clr Drug Dosing 25.23 mL/min Estimated GFR (MDRD) 34 Glucose 118 H (74-105) mg/dL POC Glucose 176 H (83-110) mg/dl Calcium 9.7 (8.4-10.2) mg/dl Magnesium 2.2 (1.8-2.5) mg/dL Urine Color (YELLOW) Urine Appearance (CLEAR) Urine pH (5.0-9.0) Ur Specific [place] (1.005-1.030) Urine Protein (NEGATIVE) Urine Glucose (UA) (NEGATIVE) Urine Ketones (NEGATIVE) Urine Occult Blood (NEGATIVE) Urine Nitrite (NEGATIVE) Urine Bilirubin (NEGATIVE) Urine Urobilinogen (0.2-1.0) mg/dL Ur Leukocyte Esterase (NEGATIVE) Urine RBC /HPF Urine WBC (0-5/HPF) /HPF Ur Epithelial Cells /HPF Urine Bacteria (0-FEW/HPF) /HPF Urine Mucus /LPF 01/01/17 01/01/17 Range/Units 07:42 11:49 PT (9.0-12.0) SEC INR (0.9-1.2) Sodium (135-145) mmol/L Potassium (3.6-5.0) mmol/L Chloride (101-111) mmol/L Carbon Dioxide (21.0-31.0) mmol/L Anion Gap BUN (7-18) mg/dL Creatinine (0.6-1.3) mg/dL Est Cr Clr Drug Dosing mL/min Estimated GFR (MDRD) Glucose (74-105) mg/dL POC Glucose 115 H 218 H (83-110) mg/dl Calcium (8.4-10.2) mg/dl Magnesium (1.8-2.5) mg/dL Urine Color (YELLOW) Urine Appearance (CLEAR) Urine pH (5.0-9.0) Ur Specific [place] (1.005-1.030) Urine Protein (NEGATIVE) Urine Glucose (UA) (NEGATIVE) Urine Ketones (NEGATIVE) Urine Occult Blood (NEGATIVE) Urine Nitrite (NEGATIVE) Urine Bilirubin (NEGATIVE) Urine Urobilinogen (0.2-1.0) mg/dL Ur Leukocyte Esterase (NEGATIVE) Urine RBC /HPF Urine WBC (0-5/HPF) /HPF Ur Epithelial Cells /HPF Urine Bacteria (0-FEW/HPF) /HPF Urine Mucus /LPF Med Orders - Current: Current Medications Acetaminophen (Tylenol) 650 mg PO Q6HR PRN PRN Reason: Pain Albuterol (Proventil Neb Soln) 2.5 mg INH Q6HRRT [facility] Last Admin: 01/01/17 07:12 Dose: 2.5 mg Amlodipine Besylate (Norvasc) 2.5 mg PO DAILY [facility] Last Admin: 01/01/17 08:53 Dose: 2.5 mg Artificial Tears (Refresh Celluvisc) 1 each EYEBOTH Q4H PRN PRN Reason: Dry Eyes Bumetanide (Bumex) 4 mg PO BIDDIURETIC [facility] Last Admin: 01/01/17 08:51 Dose: 4 mg Carvedilol (Coreg) 6.25 mg PO BIDMEALS [facility] Last Admin: 01/01/17 08:52 Dose: 6.25 mg Cholecalciferol (Vitamin D3) 1,000 units PO TID [facility] Last Admin: 01/01/17 09:38 Dose: 1,000 units Cyanocobalamin (Vitamin B12) 500 mcg PO BEDTIME [facility] Last Admin: 12/31/16 21:51 Dose: 500 mcg Docusate Sodium (Colace) 100 mg PO BID [facility] Last Admin: 01/01/17 08:52 Dose: 100 mg Hydralazine HCl (Apresoline) 50 mg PO BID [facility] Last Admin: 01/01/17 09:34 Dose: 50 mg Insulin Aspart (Novolog) 30 unit SUBCUT ACLUNCH [facility] Last Admin: 12/31/16 12:33 Dose: 30 units Insulin Aspart (Novolog) 38 unit SUBCUT ACDINNER [facility] Last Admin: 12/31/16 17:43 Dose: 38 units Insulin Aspart (Novolog) 0 unit SUBCUT TIDMEALS [facility] PRN Reason: Protocol Last Admin: 01/01/17 08:22 Dose: Not Given Insulin Aspart (Novolog) 29 unit SUBCUT ACBREAKFAST [facility] Last Admin: 01/01/17 09:34 Dose: 29 units Insulin Detemir (Levemir) 75 unit SUBCUT DAILY [facility] Last Admin: 01/01/17 08:55 Dose: 75 units Insulin Detemir (Levemir) 62 unit SUBCUT BEDTIME [facility] Last Admin: 12/31/16 21:49 Dose: 62 units Isosorbide Mononitrate (Imdur) 60 mg PO BIDAC [facility] Last Admin: 01/01/17 06:06 Dose: 60 mg Levothyroxine Sodium (Levothyroxine) 150 mcg PO ACBREAKFAST [facility] Last Admin: 01/01/17 06:06 Dose: 150 mcg Lorazepam (Ativan) 1 mg PO BEDTIME PRN PRN Reason: Insomnia Last Admin: 12/31/16 21:51 Dose: 1 mg Meclizine HCl (Antivert) 25 mg PO QID [facility] Last Admin: 01/01/17 08:53 Dose: Not Given Metolazone (Zaroxolyn) 2.5 mg PO SuTh@0900 [facility] Nitroglycerin (Nitrostat) 0.4 mg SL Q5M PRN PRN Reason: Chest Pain Pantoprazole Sodium (Protonix) 40 mg PO ACBRK [facility] Last Admin: 01/01/17 06:06 Dose: 40 mg Amiloride Hcl 5 Mg (*Pt's Own Med) 0 each PO BID [facility] Last Admin: 01/01/17 09:34 Dose: 1 each Potassium Chloride (Klor-Con 10) 50 meq PO TIDMEALS [facility] Last Admin: 01/01/17 08:52 Dose: 50 meq Psyllium Husk (Metamucil Sugar Free) 1 pkt PO DAILY PRN PRN Reason: Constipation Sodium Chloride (Saline Flush) 10 ml FLUSH ASDIRECTED PRN PRN Reason: Keep Vein Open Warfarin Sodium (Coumadin) 3 mg PO DAILY@1400 [facility] Last Admin: 12/31/16 14:28 Dose: 3 mg Discontinued Medications Potassium Chloride 10 meq/ (Premix) 100 mls @ 100 mls/hr IV ONETIME ONE Stop: 12/30/16 13:07 Last Infusion: 12/30/16 16:13 Dose: Infused Potassium Chloride 10 meq/ (Premix) 100 mls @ 100 mls/hr IV Q1H [facility] Stop: 12/30/16 16:59 Last Admin: 12/30/16 18:32 Dose: 50 mls/hr Potassium Chloride 20 meq/ (Premix) 100 mls @ 50 mls/hr IV ONETIME ONE Stop: 12/31/16 09:36 Last Admin: 12/31/16 08:06 Dose: 50 mls/hr Insulin Aspart (Novolog) 56 unit SUBCUT [facility]ID[facility]ALS [facility] Last Admin: 12/31/16 10:47 Dose: Not Given Insulin Aspart (Novolog) 29 unit SUBCUT ACBREAKFAST ONE Stop: 12/31/16 09:57 Last Admin: 12/31/16 10:46 Dose: Not Given Insulin Detemir (Levemir) 75 unit SUBCUT BID [facility] Last Admin: 12/31/16 11:00 Dose: Not Given Lidocaine HCl (Xylocaine-Mpf 1%) 1 ml INJECT ONETIME ONE Stop: 12/30/16 12:46 Last Admin: 12/30/16 12:54 Dose: Not Given Potassium Chloride (Klor-Con 10) 40 meq PO TIDMEALS [facility] Last Admin: 12/31/16 11:18 Dose: 40 meq Potassium Chloride (Klor-Con 10) 20 meq PO ONETIME ONE Stop: 12/31/16 09:57 Last Admin: 12/31/16 11:17 Dose: 20 meq Warfarin Sodium (Coumadin) 5 mg PO ONETIME ONE Stop: 12/30/16 12:16 Last Admin: 12/30/16 12:26 Dose: 5 mg *Q Meaningful Use (DIS) - VTE *Q VTE Criteria *Q: - Stroke *Q Stroke Criteria *Q: - AMI *Q AMI Criteria *Q:
[2017-01-02] MEDS ORDERED: Metolazone 2.5 MG Tab PO SCH (09:00)
== END 2017-01-01 13:50 | disposition home or self-care (01) ==
LOC: DL.ED 11:01 → DL.MS 13:40 → UNDOADMOB 13:40 → DL.MS 13:56
PROVIDERS: ADMIT Internal Medicine; ATTEND Internal Medicine
DX: I48.2 Chronic atrial fibrillation (principal); E11.22 Type 2 diabetes mellitus with diabetic chronic kidney disease; I13.0 Hypertensive heart and chronic kidney disease with heart failure and stage 1 through stage 4 chronic kidney disease, or unspecified chronic kidney disease; N18.3 Chronic kidney disease, stage 3 (moderate); E03.9 Hypothyroidism, unspecified; E66.9 Obesity, unspecified; K21.9 Gastro-esophageal reflux disease without esophagitis; E55.9 Vitamin D deficiency, unspecified; F32.9 Major depressive disorder, single episode, unspecified; G47.30 Sleep apnea, unspecified; J45.909 Unspecified asthma, uncomplicated; Z79.01 Long term (current) use of anticoagulants; Z79.899 Other long term (current) drug therapy; Z88.8 Allergy status to other drugs, medicaments and biological substances; Z91.041 Radiographic dye allergy status; Z88.0 Allergy status to penicillin; Z88.2 Allergy status to sulfonamides; Z88.1 Allergy status to other antibiotic agents; Z79.4 Long term (current) use of insulin; Z68.30 Body mass index [BMI] 30.0-30.9, adult; Z90.49 Acquired absence of other specified parts of digestive tract; Z90.710 Acquired absence of both cervix and uterus; Z98.890 Other specified postprocedural states
CPT/HCPCS: 36415; 71010; 80048; 80053; 81001; 82150; 82550; 82553; 82962; 83690; 83735; 83880; 84132; 84443; 84484; 85025; 85610; 87086; 93005; 94010; 94640; 96365; 96366; 99285; A9270; J1815; J3480; J7620; G0378

== ENCOUNTER 2017-02-04 14:01 | Inpatient (IN) | payer MEDICARE, BC, OTHER ==
--- NOTE | 2017-02-04 14:43 | EDM.PDOC ---
ED HPI GENERAL MEDICAL PROBLEM - General Chief Complaint: Chest Pain Stated Complaint: DIZZY, TROUBLE BREATHING Time Seen by Provider: 02/04/17 14:39 Source of Information: Reports: Patient History Limitations: Reports: No Limitations - History of Present Illness INITIAL COMMENTS - FREE TEXT/NARRATIVE: This 76 yo female patient reports to the ED today due to chest heaviness, generalized weakness and nausea. The patient reports her symptoms started at about 1130 today and have continued. The patient reports a past history of A. Fib, Hypokalemia, Diabetes, CAD, CHF, Hypothyroid and HTN. The patient reports she has had similar symptoms in the past, but they have never lasted this long. The patient reports her symptoms normally go away when she eats, but today her symptoms have not changed despite attempting to eat. Onset: Today Onset Date: 02/04/17 Onset Time: 11:30 Duration: Constant Location: Reports: Chest Quality: Reports: Other (Tightness) Severity: Moderate Improves with: Reports: None Worsens with: Reports: None Associated Symptoms: Reports: Chest Pain, Shortness of Breath - Related Data Allergies Allergy/AdvReac Type Severity Reaction Status Date / Time codeine Allergy Severe Rash Verified 02/04/17 14:34 Iodinated Contrast- Oral and Allergy Severe Other Verified 02/04/17 14:34 IV Dye [Iodinated Contrast Media - IV Dye] Penicillins Allergy Severe Hives Verified 02/04/17 14:34 pentazocine [From Talwin] Allergy Severe Delusions Verified 02/04/17 14:34 Sulfa (Sulfonamide Allergy Severe Hives Verified 02/04/17 14:34 Antibiotics) sulfamethoxazole Allergy Severe Hives Verified 02/04/17 14:34 [From Bactrim] trimethoprim [From Bactrim] Allergy Severe Hives Verified 02/04/17 14:34 ampicillin Allergy Intermediate Hives Verified 02/04/17 14:34 atorvastatin calcium Allergy Mild Muscle Verified 02/04/17 14:34 [From Lipitor] Aches duloxetine HCl Allergy Mild Nausea Verified 02/04/17 14:34 [From Cymbalta] indomethacin [From Indocin] Allergy Mild Headache Verified 02/04/17 14:34 indomethacin sodium Allergy Mild Headache Verified 02/04/17 14:34 [From Indocin] lactose Allergy Mild Diarrhea Verified 02/04/17 14:34 lisinopril Allergy Mild Cough Verified 02/04/17 14:34 metolazone Allergy Mild Muscle Verified 02/04/17 14:34 Aches metoprolol Allergy Mild Fatigue Verified 02/04/17 14:34 oxycodone [Oxycodone] Allergy Mild Other Verified 02/04/17 14:34 pravastatin Allergy Mild Muscle Verified 02/04/17 14:34 Aches simvastatin Allergy Mild Muscle Verified 02/04/17 14:34 Aches spironolactone Allergy Mild Headache Verified 02/04/17 14:34 tuberculin, purified protein Allergy Mild Rash Verified 02/04/17 14:34 deriva [tuberculin,purif.prot.deriv.] clonazepam [From Klonopin] Allergy Other Verified 02/04/17 14:34 hydrochlorothiazide Allergy Lethargy Verified 02/04/17 14:34 tetanus toxoid, adsorbed Allergy Other Verified 02/04/17 14:34 zoster vaccine live Allergy Cannot Verified 02/04/17 14:34 Remember Home Meds: Home Meds Bumetanide [Bumex] 4 mg PO BID 11/25/13 [History] Isosorbide Mononitrate [Imdur] 60 mg PO DAILY 11/25/13 [History] LORazepam [Ativan] 1 mg PO BEDTIME PRN 11/25/13 [History] Levothyroxine Sodium [Synthroid] 150 mcg PO ACBREAKFAST 11/25/13 [History] Nitroglycerin [Nitrostat] 0.4 mg SL Q5M PRN MDD 3 11/25/13 [History] Psyllium [Metamucil SF] 1 tbsp PO DAILY PRN 11/25/13 [History] amLODIPine Besylate [Amlodipine Besylate] 2.5 mg PO DAILY 11/25/13 [History] Acetaminophen 650 mg PO Q6HR PRN 03/28/15 [History] Albuterol [Proventil HFA] 2 inh INH ASDIRECTED PRN 03/28/15 [History] Potassium Chloride 40 meq PO TID 03/28/15 [History] Cholecalciferol (Vitamin D3) [Vitamin D3] 1,000 units PO TID 03/29/15 [History] Warfarin [Coumadin] 3 mg PO DAILY 10/30/15 [History] hydrALAZINE HCl [Hydralazine HCl] 50 mg PO BID 10/30/15 [History] Albuterol [Proventil Neb Soln] 1 ampule INH Q6H PRN 03/27/16 [History] Carvedilol [Coreg] 6.25 mg PO BIDMEALS 03/27/16 [History] Cyanocobalamin (Vitamin B12) [Vitamin B12] 500 mcg PO BEDTIME 03/27/16 [History] Hypromellose/PF [Retaine Hpmc 0.3% Eye Drops] 1 drop EYEBOTH Q4H PRN 03/27/16 [ History] Meclizine [Antivert] 25 mg PO QID PRN 03/27/16 [History] Pantoprazole Sodium [Protonix] 40 mg PO DAILY 03/27/16 [History] Docusate Sodium 100 mg PO BID 08/30/16 [History] Metolazone 2.5 mg PO ASDIRECTED 08/30/16 [History] aMILoride HCl [Amiloride HCl] 5 mg PO BID 08/30/16 [History] Insulin Aspart [NovoLOG] 29 unit SUBCUT ACBREAKFAST pen 01/01/17 [Rx] Insulin Aspart [NovoLOG] 30 unit SUBCUT ACLUNCH pen 01/01/17 [Rx] Insulin Aspart [NovoLOG] 38 unit SUBCUT ACDINNER pen 01/01/17 [Rx] Insulin Detemir [Levemir] 62 unit SUBCUT BEDTIME pen 01/01/17 [Rx] Insulin Detemir [Levemir] 75 unit SUBCUT DAILY pen 01/01/17 [Rx] Past Medical History HEENT History: Reports: Cataract, Impaired Vision, Other (See Below) Other HEENT History: HEARING LOSS TOTAL-RIGHT PARTIAL-LEFT, WEARS BILAT HEARING AIDES Cardiovascular History: Reports: Afib, CAD, Heart Failure, Hypertension, DE, Stents, Other (See Below) Other Cardiovascular History: CAROTID ARTERY DISEASE. HEART FAILURE WITH PRESERVED EJECTION FRACTION. HYPERTENSIVE HEART DISEASE. TIA Respiratory History: Reports: Asthma, Bronchitis, Recurrent, Sleep Apnea Gastrointestinal History: Reports: Chronic Constipation, GERD, Hemorrhoids, Irritable Bowel Syndrome Genitourinary History: Reports: Chronic Renal Insuffiency, Renal Calculus, Other (See Below) Other Genitourinary History: CKD STAGE III FILAMENT WELDER History: Reports: None, Other (See Below) Other OB/BYN History: UTERUS WAS ADHESED TO HER SPINE Musculoskeletal History: Reports: Back Pain, Chronic, Fracture, Osteoarthritis Other Musculoskeletal History: FRACTURED ARM WHEN SHE WAS YOUNG Neurological History: Reports: TIA, Other (See Below) Other Neuro History: NORMAL PRESSURE HYDROCEPHALUS. SUBDURAL HEMATOMA. lorazepam controls headaches from shunt Psychiatric History: Reports: Depression Endocrine/Metabolic History: Reports: Diabetes, Type II, Hypothyroidism, Obesity /BMI 30+, Osteoporosis, Vitamin D Deficiency Hematologic History: Reports: Blood Transfusion(s) Immunologic History: Reports: None Oncologic (Cancer) History: Reports: Malignant Melanoma Dermatologic History: Reports: None - Infectious Disease History Infectious Disease History: Reports: Chicken Pox, Measles, Mumps, Shingles - Past Surgical History Head Surgeries/Procedures: Reports: Shunt HEENT Surgical History: Reports: Adenoidectomy, Cataract Surgery, Tonsillectomy Cardiovascular Surgical History: Reports: Carotid Endarterectomy, Coronary Artery Stent Respiratory Surgical History: Reports: None GI Surgical History: Reports: Appendectomy, Colonoscopy, EGD, Polypectomy, Other (See Below) Other GI Surgeries/Procedures: large colon mostly resected - annotated redundant bowel Female Surgical History: Reports: Breast Biopsy, Cystectomy, Hysterectomy, Salpingo-Oophorectomy, Other (See Below) Other Female Surgeries/Procedures: breast cyst Endocrine Surgical History: Reports: None Neurological Surgical History: Reports: Other (See Below) Other Neurological Surgeries/Procedures: spinal tap and 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 shunt (2007) Musculoskeletal Surgical History: Reports: None Oncologic Surgical History: Reports: Biopsy of Breast Dermatological Surgical History: Reports: None Social & Family History - Family History Family Medical History: Noncontributory - Tobacco Use Smoking Status *Q: Never Smoker Years of Tobacco use: 10 Used Tobacco, but Quit: Yes Month Tobacco Last Used: 06/11/1982 Second Hand Smoke Exposure: No - Caffeine Use Caffeine Use: Reports: None - Alcohol Use Days Per Week of Alcohol Use: 0 - Recreational Drug Use Recreational Drug Use: No Drug Use in Last 12 Months: No - Living Situation & Occupation Living situation: Reports: with Family Occupation: Retired ED ROS GENERAL - Review of Systems Review Of Systems: ROS reveals no pertinent complaints other than HPI. ED EXAM, GENERAL - Physical Exam Exam: See Below Exam Limited By: No Limitations General Appearance: Alert, WD/WN, No Apparent Distress, Obese Eye Exam: Bilateral Eye: EOMI, Normal Inspection, PERRL Ears: Normal External Exam, Normal Canal, Hearing Grossly Normal, Normal TMs Nose: Normal Inspection, Normal Mucosa, No Blood Throat/Mouth: Normal Inspection, Normal Lips, Normal Teeth, Normal Gums, Normal Oropharynx, Normal Voice, No Airway Compromise Head: Atraumatic, Normocephalic Neck: Normal Inspection, Supple, Non-Tender, Full Range of Motion Respiratory/Chest: No Respiratory Distress, Lungs Clear, Normal Breath Sounds, No Accessory Muscle Use, Chest Non-Tender Cardiovascular: Normal Peripheral Pulses, No Edema, No Gallop, No JVD, No Murmur , No Rub, Irregularly Irregular GI/Abdominal: Normal Bowel Sounds, Soft, Non-Tender, No Organomegaly, No Distention, No Abnormal Bruit, No Mass (Female) Exam: Deferred Rectal (Female) Exam: Deferred Back Exam: Normal Inspection, Full Range of Motion, NT Extremities: Normal Inspection, Normal Range of Motion, Non-Tender, Normal Capillary Refill, No Pedal Edema Neurological: Alert, Oriented, CN II-XII Intact, Normal Cognition, Normal Gait, Normal Reflexes, No Motor/Sensory Deficits Psychiatric: Normal Affect, Normal Mood Skin Exam: Warm, Dry, Intact, Normal Color, No Rash Lymphatic: No Adenopathy Course - Vital Signs Last Recorded V/S: Last Vital Signs Temp 36.8 C 02/04/17 14:13 Pulse 86 02/04/17 14:13 Resp 20 02/04/17 14:13 BP 113/48 L 02/04/17 14:13 Pulse Ox 96 02/04/17 14:13 - Orders/Labs/Meds Orders: Active Orders 24 hr Category Date Time Status EKG Documentation Completion [RC] URGENT Care 02/04/17 14:22 Active Lidocaine 1% [Xylocaine-MPF 1%] Med 02/04/17 15:11 Once 1 ml INJECT ONETIME ONE Potassium Chloride [KCl 10 MEQ in Water 100 ML] 10 meq Med 02/04/17 15:11 Ordered Premix Bag 1 bag IV ONETIME Labs: Laboratory Tests 02/04/17 02/04/17 02/04/17 Range/Units 14:32 14:32 14:32 WBC 10.9 H (5.0-10.0) 10^3/uL RBC 4.61 (4.2-5.4) 10^6/uL Hgb 14.6 (12.0-16.0) g/dL Hct 42.3 (37.0-47.0) % MCV 91.8 (80-100) fL MCH 31.7 (27.0-34.0) pg MCHC 34.5 (33.0-35.0) g/dL Plt Count 199 (150-450) 10^3/uL Neut % (Auto) 67.5 (42.2-75.2) % Lymph % (Auto) 13.4 L (20.5-50.1) % Routt % (Auto) 15.4 H (2-8) % Eos % (Auto) 3.2 H (1.0-3.0) % Baso % (Auto) 0.5 (0.0-1.0) % D-Dimer, Quantitative < 100 (0-400) ng/mL Sodium 132 L (135-145) mmol/L Potassium 3.2 L (3.6-5.0) mmol/L Chloride 87 L (101-111) mmol/L Carbon Dioxide 31.0 (21.0-31.0) mmol/L Anion Gap 17.2 BUN 54 H (7-18) mg/dL Creatinine 1.7 H (0.6-1.3) mg/dL Est Cr Clr Drug Dosing 22.27 mL/min Estimated GFR (MDRD) 29 BUN/Creatinine Ratio 31.76 Glucose 129 H (74-105) mg/dL Calcium 10.1 (8.4-10.2) mg/dl Total Bilirubin 0.8 (0.2-1.0) mg/dL AST 34 (10-42) IU/L ALT 29 (10-60) IU/L Alkaline Phosphatase 111 (42-121) IU/L Troponin I 0.03 H* (0.00-0.02) ng/ml Total Protein 6.9 (6.7-8.2) g/dl Albumin 3.8 (3.2-5.5) g/dl Globulin 3.1 Albumin/Globulin Ratio 1.23 Departure - Departure Time of Disposition: 15:13 Disposition: Admitted As Inpatient 66 Condition: Fair Clinical Impression: Hypokalemia Care Plan Goals: Discussed the history, lab and EKG results with Dr. Mcmahon. Dr. Mcmahon accepted the patient for continued evaluation and further management as an inpatient at [facility]. - My Orders Last 24 Hours: My Active Orders 02/04/17 14:22 EKG Documentation Completion [RC] URGENT 02/04/17 15:11 Lidocaine 1% [Xylocaine-MPF 1%] 1 ml INJECT ONETIME ONE Potassium Chloride [KCl 10 MEQ in Water 100 ML] 10 meq Premix Bag 1 bag IV ONETIME - Assessment/Plan Last 24 Hours: My Active Orders 02/04/17 14:22 EKG Documentation Completion [RC] URGENT 02/04/17 15:11 Lidocaine 1% [Xylocaine-MPF 1%] 1 ml INJECT ONETIME ONE Potassium Chloride [KCl 10 MEQ in Water 100 ML] 10 meq Premix Bag 1 bag IV ONETIME
--- NOTE | 2017-02-04 14:52 | CR ---
Clinical history: 76-year-old female chest heaviness. Interpretation: Chronic prominence of cardiac silhouette accentuated by poor inspiratory effort obese female. No change since 30 December 2016 exam. No new cephalization of vascular flow, signs of alveolar edema or dependent effusion. (CLEAN ROOM TECHNICIAN shunt line on the right). External emg technician leads. No new lung mass, hilar lymphadenopathy or focal lobar pneumonia. No atelectasis/collapse. No pneumot horax. CONCLUSION: No acute new cardiopulmonary abnormality since early December and August films, this year.
[2017-02-04] MEDS ORDERED: Lidocaine 1% 30 ML SDV INJECT ONE (15:11)
[2017-02-04] MEDS ORDERED: Potassium Chloride 10 MEQ in Premix Bag 1 BAG IV ONE (15:11)
[2017-02-04] MEDS ORDERED: Ondansetron 4 MG Tab.DIS PO PRN (16:35)
[2017-02-04] MEDS ORDERED: LORazepam 1 MG Tab PO PRN (16:39)
[2017-02-04] MEDS ORDERED: Albuterol 0.083% 2.5 MG/3 ML Neb Soln INH PRN (16:39)
[2017-02-04] MEDS ORDERED: Albuterol 6.7 GM Inhaler INH PRN (16:39)
[2017-02-04] MEDS ORDERED: Nitroglycerin 0.4 MG Tab.SL SL PRN (16:39)
[2017-02-04] MEDS ORDERED: Meclizine 12.5 MG Tab PO PRN (16:39)
[2017-02-04] MEDS ORDERED: Psyllium Husk Powder Sugar Free 5.85 GM Packet PO PRN (16:39)
[2017-02-04] MEDS ORDERED: Acetaminophen 325 MG Tab PO PRN (16:39)
[2017-02-04] MEDS ORDERED: NS + KCl 20mEq/L 1,000 ML IV SCH (16:45)
[2017-02-04] MEDS ORDERED: Insulin Aspart 100 Units/ML 3 ML Pen SUBCUT SCH (17:00)
[2017-02-04] MEDS: Insulin Aspart 100 Units/ML 3 ML Pen SUBCUT SCH ×2 (17:25→21:39)
[2017-02-04] MEDS: Carvedilol 6.25 MG Tab PO SCH (17:30)
[2017-02-04] MEDS: hydrALAZINE 25 MG Tab PO SCH (20:55)
[2017-02-04] MEDS: Docusate Sodium 100 MG Cap PO SCH (20:55)
[2017-02-04] MEDS ORDERED: Cyanocobalamin (Vitamin B12) 100 MCG Tab PO SCH (21:00)
[2017-02-04] MEDS ORDERED: Insulin Detemir 100 Units/ML 3 ML Pen SUBCUT SCH (21:00)
--- NOTE | 2017-02-04 22:00 | HP ---
CHIEF COMPLAINT: Increasing shortness of breath, weakness, tiredness, and chest pressure. HISTORY OF PRESENTING ILLNESS: Mrs. Annie Horvath is a 76-year-old female with medical history significant for hypertension, hyperlipidemia, type 2 diabetes mellitus, coronary artery disease status post stents placed in the past, history of chronic kidney disease, chronic congestive heart failure, atrial fibrillation status post stents placed in the coronaries in the past, presented to the ER today with complaints of increasing weakness, tiredness, shortness of breath, and feeling nauseated, and was noted to have hypokalemia, acute renal failure, needing admission to the hospital. At this time, the patient says that she has been feeling weak and tired for the last 2 days but more so since this morning. She also complains of feeling nauseated. She denies any vomiting though. She also expressed some chest discomfort, mainly chest pressure, which is intermittent in nature, 4 to 5/10 in intensity, nonradiating, associated mild shortness of breath. Denied any fevers or chills in the last few days. No cough with sputum in the last few days. No vomiting or diarrhea in the last few days. No complaints of abdominal pain. The patient denied any history of chest pains on exertion, but has mild dyspnea on exertion. Claims that she has underlying asthma, she uses inhalation treatment as needed. She denied any hematemesis, hematochezia, or melanic stools. Normal bowel and bladder habits, otherwise. REVIEW OF SYSTEMS: A complete review of system including skin, ear, nose, and throat, cardiovascular system, respiratory system, gastrointestinal system, genitourinary system, hematology, oncology, neurology, allergy, immunology, constitutional were all evaluated. PAST MEDICAL HISTORY: Significant for: 1. Hypertension. 2. Hyperlipidemia. 3. Type 2 diabetes mellitus. 4. Coronary artery disease, status post stents placed. 5. Chronic congestive heart failure. 6. Chronic kidney disease, status post IVC filter placed in the past. 7. History of subdural hematoma. 8. Hyperthyroidism due to renal insufficiency. 9. Hydrocephalus, status post SHIRT FOLDING MACHINE OPERATOR shunt. 10.Status post stents placed in the past. 11.History of asthma. PAST SURGICAL HISTORY: Significant for: 1. Tonsillectomy and adenoidectomy. 2. Cardiac catheterization. 3. Hysterectomy. 4. Eye surgery. 5. Coronary angioplasty with stent placement. 6. Colon surgery. 7. Carotid endarterectomy. 8. Breast surgery. FAMILY HISTORY: Significant for heart disease, thyroid disease, and colon and breast cancer in her mother. Thyroid disease and heart disease in her father. Thyroid disease in her sisters. Heart disease in her sister. Diabetes in her sisters. SOCIAL HISTORY: The patient denied any history of smoking tobacco, but had quit smoking in 1976. History of occasional alcohol intake. ALLERGIES: The patient has a long list of allergies to Bactrim, penicillin, codeine, hydrochlorothiazide, Klonopin, metoprolol, oxycodone, pravastatin, simvastatin, sulfa, tetanus toxoid, atorvastatin, Indocin, duloxetine, lisinopril, Lopressor, metolazone, spironolactone. PHYSICAL EXAMINATION: Vital Signs: Temperature of 97.2, pulse of 88, blood pressure of 121/77, respiratory rate of 20, saturating at 100% on room air. General Appearance: The patient is well oriented to time, place, and person. Follows commands spontaneously. Cardiovascular System: S1, S2 heard with normal intensity. Irregular heart rate. Respiratory System: Clear to auscultation bilaterally. No wheeze. No crepitations. Abdomen: Soft. Bowel sounds positive. Nontender. No rigidity. Extremities: No edema in bilateral lower extremities. Neurology: No gross focal neurological deficits. HOME MEDICATIONS: Home medications include: 1. Norvasc 2.5 mg daily. 2. Amiloride 5 mg twice a day. 3. Coumadin 3 mg at bedtime. 4. Potassium chloride 40 mEq three times a day. 5. Protonix 40 mg daily. 6. Nitroglycerin 0.4 mg sublingual every 5 minutes as needed. 7. Levemir 62 units at bedtime and 72 units in a.m. 8. NovoLog 38 units and 29 units with breakfast. 9. Bumex 4 mg twice a day. 10.Meclizine 25 mg q.i.d. as needed. 11.Lorazepam 1 mg at bedtime as needed. 12.Imdur 60 mg daily. 13.Hydralazine 50 mg twice a day. 14.Coreg 6.25 mg twice a day. LABORATORY DATA: WBC 10.9, hemoglobin 14.6, hematocrit 42.3, platelet count 199. D-dimer less than 100. Sodium 132, potassium 3.2, chloride 87, bicarb 31, BUN 54, creatinine 1.7, glucose 129. Troponin 0.03. ASSESSMENT: 1. Acute hypokalemia. 2. Hyponatremia. 3. Acute on chronic renal failure. 4. Atrial fibrillation. 5. Hypertension. 6. Type 2 diabetes mellitus. 7. Hyperlipidemia. 8. Coronary artery disease. 9. Chronic congestive heart failure with diastolic dysfunction. 10.Chronic anticoagulation with Coumadin. PLAN: 1. Increased generalized weakness and tiredness. The patient comes with weakness and tiredness and noted to have hypokalemia and hyponatremia. She looks dry, possibly she is getting intravascularly depleted from overzealous diuretic use. The patient will be admitted to the hospital. We will have her on IV fluids for now. We will be cautious regarding IV hydration as she has underlying congestive heart failure. Closely follow. We will get a BNP at this time. We will check her orthostatic vitals and closely follow. 2. Hyponatremia and hypokalemia. This could be resulting from diuretic use also. We will skip the diuretic tonight, and we will replace with oral and IV potassium chloride. We will have her on IV fluids. Recheck a basic metabolic panel in a.m. We will also check her magnesium and phosphorus. 3. Acute on chronic renal failure. The patient's creatinine is up to 1.7 and BUN up to 54. Her baseline creatinine back in August is 1.3, suggesting acute on chronic renal failure. Again, we will hold the Bumex tonight. We will keep her hydrated with IV fluids. Avoid nephrotoxic agents. Dose adjust medications for renal function. Recheck BMP in a.m. 4. Coronary artery disease. The patient recently underwent a coronary angiogram back in August and did not show any obstructive disease. She is noted to have a troponin of 0.03. We will get one more set of troponin. Chest pressure could be resulting from her atrial fibrillation, but we will follow the telemetry unit and also a set of cardiac enzymes. 5. Diabetes mellitus. The patient is noted to be on high-dose insulin regimen, continue the same. Check her fingersticks with each meals. Have her on supplemental scale insulin as needed for additional coverage of her blood glucose. 6. Chronic congestive heart failure. This is mainly diastolic dysfunction. Be cautious regarding IV hydration and diuretics. Try to maintain euvolemic status. 7. Code status. The patient wants to be full code. 8. Discussed with the patient regarding the plan of care. Reviewed the labs and medications. Reviewed the old charts. [facility] /[id number]
[2017-02-05] MEDS: Cholecalciferol (Vitamin D3) 400 Unit Tab PO SCH ×2 (00:31→08:23)
[2017-02-05] MEDS: Potassium Chloride 10 MEQ Tab.ER PO SCH ×2 (00:31→08:25)
[2017-02-05] MEDS ORDERED: Levothyroxine 150 MCG Tab PO SCH (06:00)
[2017-02-05] MEDS ORDERED: Insulin Aspart 100 Units/ML 3 ML Pen SUBCUT SCH ×2 (08:00→11:00)
[2017-02-05] MEDS: Carvedilol 6.25 MG Tab PO SCH (08:24)
[2017-02-05] MEDS: hydrALAZINE 25 MG Tab PO SCH (08:24)
[2017-02-05] MEDS: Docusate Sodium 100 MG Cap PO SCH (08:25)
[2017-02-05] MEDS: Insulin Aspart 100 Units/ML 3 ML Pen SUBCUT SCH ×2 (08:37→12:25)
[2017-02-05] MEDS ORDERED: Isosorbide Mononitrate 60 MG Tab.ER PO SCH (09:00)
[2017-02-05] MEDS ORDERED: Pantoprazole 40 MG Tab.CR PO SCH (09:00)
[2017-02-05] MEDS ORDERED: amLODIPine 5 MG Tab PO SCH (09:00)
[2017-02-05] MEDS ORDERED: Bumetanide 1 MG Tab PO SCH ×2 (09:00→10:01)
[2017-02-05] MEDS ORDERED: Non-Formulary Medication 1 Each (Amiloride 5 MG) PO SCH (09:00)
[2017-02-05] MEDS ORDERED: Insulin Detemir 100 Units/ML 3 ML Pen SUBCUT SCH (09:00)
[2017-02-05 11:59] VITALS: BP 136/45
--- NOTE | 2017-02-06 06:23 | DISCH ---
ADMITTING DIAGNOSES: 1. Generalized weakness, tiredness. 2. Dehydration. 3. Severe hypokalemia. 4. Atrial fibrillation with rapid ventricular response. DISCHARGE DIAGNOSES: 1. Dehydration from diuretic use with Bumex. 2. Severe hypokalemia, responded well to IV and oral potassium chloride supplement. 3. Generalized weakness, resolved. 4. Chronic congestive heart failure secondary to diastolic dysfunction with good ejection fraction of greater than 60%. HISTORY OF PRESENTING ILLNESS: Mrs. Yuliet Valencia is a 76-year-old female with medical history significant for hypertension; hyperlipidemia; type 2 diabetes mellitus; coronary artery disease, status post stents placed in the past; chronic kidney disease; chronic congestive heart failure with diastolic dysfunction; atrial fibrillation, was admitted to the hospital with complaints of generalized weakness and chest pressure. The patient was noted to be in atrial fibrillation with rapid ventricular response. Responded well to the Cardizem. She was also noted to have hypokalemia with potassium down to 3.2. She was treated with IV and oral potassium chloride, after which her potassium has improved to 3.8. She was also noted to be on Bumex leading to intravascular depletion. Her BUN was up to 54 and creatinine up to 1.7 suggestive of acute renal failure. The patient's recent creatinine was around 1.3. The patient was treated with IV fluids, and after which, her potassium improved and also BUN and creatinine have improved. She was noted to be on high-dose Bumex at 4 mg twice a day. We decreased the Bumex to 2 mg twice a day. Given her chronic history of congestive heart failure and diastolic dysfunction, we were cautious regarding IV hydration. The patient was explained about changes in her medications, mainly the Bumex to 2 mg twice a day. She is advised to follow with her primary care physician in the next 1 week of time and to follow with Nephrology Clinic as scheduled. 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 She remained hemodynamically stable on this admission. She remained in normal sinus rhythm on the Telemetry Unit. She is discharged home in stable condition. DISCHARGE MEDICATIONS: Include: 1. Tylenol 650 every 6 hours as needed for pain. 2. Albuterol 2 puffs inhalation as needed for dyspnea. 3. Bumex 2 mg oral twice a day, changed from 4 mg twice a day. 4. Coreg 6.25 mg twice a day. 5. Cholecalciferol 1000 units 3 times a day. 6. Cyanocobalamin 500 mcg at bedtime. 7. Docusate sodium 100 mg 3 times daily. 8. NovoLog 29 units at breakfast, 38 units at dinner, and 30 units at lunch. 9. Levemir 75 units daily in the a.m. and 62 units at bedtime. 10.Imdur 60 mg daily. 11.Lorazepam 1 mg at bedtime as needed for sleep. 12.Levothyroxine 150 mcg daily. 13.Meclizine 25 mg 4 times a day as needed for vertigo. 14.Metolazone 2.5 mg on Sundays and . 15.Nitroglycerin 0.4 mg sublingual every 5 minutes as needed for chest pain. 16.Protonix 40 mg daily. 17.Potassium chloride 40 mEq 3 times a day. 18.Psyllium 1 tablet as needed for constipation. 19.Coumadin 3 mg at bedtime. 20.Amiloride 5 mg twice a day. 21.Norvasc 2.5 mg daily. 22.Hydralazine 50 mg twice daily. PHYSICAL EXAMINATION: Vital Signs: On the day of discharge vitals; temperature of 98, pulse of 75, blood pressure of 117/59, respiratory rate of 20, saturating at 96% on room air. General Appearance: The patient is well oriented to time, place, and person. Follows commands spontaneously. Cardiovascular System: S1, S2 heard with normal intensity. No gallops. Respiratory System: Clear to auscultation bilaterally. No wheeze. No crepitations. Abdomen: Soft. Bowel sounds positive. Nontender. No rigidity. Extremities: No edema to bilateral lower extremities. CONDITION ON ADMISSION: Poor. CONDITION ON DISCHARGE: Stable. DISPOSITION: Discharged to home. ACTIVITY: As tolerated. DIET: Cardiac healthy diet and consistent carbohydrate diet. FOLLOWUP: Follow with primary care physician in next 1 week of time and follow with Nephrology Clinic on Friday as scheduled with basic metabolic panel. [facility] /[id number]
[2017-02-06] MEDS ORDERED: HYPROMELLOSE EYEBOTH PRN (08:30)
== END 2017-02-05 13:25 | disposition home or self-care (01) | DRG 948 ==
LOC: DL.ED 14:01 → UNDOADMIN 15:25 → DL.MS 15:25
PROVIDERS: ADMIT Internal Medicine; ATTEND Internal Medicine
DX: R53.1 Weakness (principal); I13.0 Hypertensive heart and chronic kidney disease with heart failure and stage 1 through stage 4 chronic kidney disease, or unspecified chronic kidney disease; N18.4 Chronic kidney disease, stage 4 (severe); N17.9 Acute kidney failure, unspecified; I50.32 Chronic diastolic (congestive) heart failure; E87.1 Hypo-osmolality and hyponatremia; N18.3 Chronic kidney disease, stage 3 (moderate); I50.9 Heart failure, unspecified; Z68.41 Body mass index [BMI] 40.0-44.9, adult; E87.6 Hypokalemia; E86.0 Dehydration; I25.10 Atherosclerotic heart disease of native coronary artery without angina pectoris; Z87.891 Personal history of nicotine dependence; Z95.5 Presence of coronary angioplasty implant and graft; I48.91 Unspecified atrial fibrillation; E11.9 Type 2 diabetes mellitus without complications; E78.5 Hyperlipidemia, unspecified; I25.2 Old myocardial infarction; E55.9 Vitamin D deficiency, unspecified; E03.9 Hypothyroidism, unspecified; J45.909 Unspecified asthma, uncomplicated; G47.30 Sleep apnea, unspecified; K21.9 Gastro-esophageal reflux disease without esophagitis; F32.9 Major depressive disorder, single episode, unspecified; M19.90 Unspecified osteoarthritis, unspecified site; G89.29 Other chronic pain; Z86.73 Personal history of transient ischemic attack (TIA), and cerebral infarction without residual deficits; H91.93 Unspecified hearing loss, bilateral; H54.7 Unspecified visual loss; E66.9 Obesity, unspecified; Z88.5 Allergy status to narcotic agent; Z88.0 Allergy status to penicillin; Z88.2 Allergy status to sulfonamides; Z88.8 Allergy status to other drugs, medicaments and biological substances; Z88.1 Allergy status to other antibiotic agents; Z91.041 Radiographic dye allergy status; Z79.01 Long term (current) use of anticoagulants; Z79.4 Long term (current) use of insulin; Z79.899 Other long term (current) drug therapy
CPT/HCPCS: 36415; 71010; 80053; 83880; 84484; 85025; 85379; 93005; 96365; 99285; J3480; 81001; 82962; 83735; 84100; 84443; 85027; 85610; A9270-GY; J1815-GY

== ENCOUNTER 2017-04-10 03:37 | Emergency (ER) | payer BC, OTHER ==
[2017-04-10 03:55] VITALS: BP 130/70
[2017-04-10 04:30] LABS: ANION GAP 13.4
--- NOTE | 2017-04-10 04:30 | EDM.PDOC ---
ED HPI GENERAL MEDICAL PROBLEM - General Chief Complaint: Gastrointestinal Problem Stated Complaint: NAUSEA, EXAUSTED [id number] Time Seen by Provider: 04/10/17 03:50 Source of Information: Reports: Patient History Limitations: Reports: No Limitations - History of Present Illness INITIAL COMMENTS - FREE TEXT/NARRATIVE: ED with c/o nausea and weakness, just feeling exhausted since yesterday. Patient reports similar hx in past when potassium low or if Atrial fib. No chest pain, chill no fever, No vomiting. Poor appetite. Dizziness worse with positional change. - Related Data Allergies Allergy/AdvReac Type Severity Reaction Status Date / Time codeine Allergy Severe Rash Verified 04/10/17 03:50 Iodinated Contrast- Oral and Allergy Severe Other Verified 04/10/17 03:50 IV Dye [Iodinated Contrast Media - IV Dye] Penicillins Allergy Severe Hives Verified 04/10/17 03:50 pentazocine [From Talwin] Allergy Severe Delusions Verified 04/10/17 03:50 Sulfa (Sulfonamide Allergy Severe Hives Verified 04/10/17 03:50 Antibiotics) sulfamethoxazole Allergy Severe Hives Verified 04/10/17 03:50 [From Bactrim] trimethoprim [From Bactrim] Allergy Severe Hives Verified 04/10/17 03:50 ampicillin Allergy Intermediate Hives Verified 04/10/17 03:50 atorvastatin calcium Allergy Mild Muscle Verified 04/10/17 03:50 [From Lipitor] Aches duloxetine HCl Allergy Mild Nausea Verified 04/10/17 03:50 [From Cymbalta] indomethacin [From Indocin] Allergy Mild Headache Verified 04/10/17 03:50 indomethacin sodium Allergy Mild Headache Verified 04/10/17 03:50 [From Indocin] lactose Allergy Mild Diarrhea Verified 04/10/17 03:50 lisinopril Allergy Mild Cough Verified 04/10/17 03:50 metolazone Allergy Mild Muscle Verified 04/10/17 03:50 Aches metoprolol Allergy Mild Fatigue Verified 04/10/17 03:50 oxycodone [Oxycodone] Allergy Mild Other Verified 04/10/17 03:50 pravastatin Allergy Mild Muscle Verified 04/10/17 03:50 Aches simvastatin Allergy Mild Muscle Verified 04/10/17 03:50 Aches spironolactone Allergy Mild Headache Verified 04/10/17 03:50 tuberculin, purified protein Allergy Mild Rash Verified 04/10/17 03:50 deriva [tuberculin,purif.prot.deriv.] clonazepam [From Klonopin] Allergy Other Verified 04/10/17 03:50 hydrochlorothiazide Allergy Lethargy Verified 04/10/17 03:50 tetanus toxoid, adsorbed Allergy Other Verified 04/10/17 03:50 zoster vaccine live Allergy Cannot Verified 04/10/17 03:50 Remember flannel Allergy Burning Uncoded 04/10/17 03:50 Home Meds: Home Meds Isosorbide Mononitrate [Imdur] 60 mg PO DAILY 11/25/13 [History] LORazepam [Ativan] 1 mg PO BEDTIME PRN 11/25/13 [History] Levothyroxine Sodium [Synthroid] 150 mcg PO ACBREAKFAST 11/25/13 [History] Nitroglycerin [Nitrostat] 0.4 mg SL Q5M PRN MDD 3 11/25/13 [History] Psyllium [Metamucil SF] 1 tbsp PO DAILY PRN 11/25/13 [History] amLODIPine Besylate [Amlodipine Besylate] 2.5 mg PO DAILY 11/25/13 [History] Acetaminophen 650 mg PO Q6HR PRN 03/28/15 [History] Albuterol [Proventil HFA] 2 inh INH ASDIRECTED PRN 03/28/15 [History] Potassium Chloride 40 meq PO TID 03/28/15 [History] Cholecalciferol (Vitamin D3) [Vitamin D3] 1,000 units PO TID 03/29/15 [History] Warfarin [Coumadin] 3 mg PO BEDTIME 10/30/15 [History] hydrALAZINE HCl [Hydralazine HCl] 50 mg PO BID 10/30/15 [History] Carvedilol [Coreg] 6.25 mg PO BIDMEALS 03/27/16 [History] Cyanocobalamin (Vitamin B12) [Vitamin B12] 500 mcg PO BEDTIME 03/27/16 [History] Hypromellose/PF [Retaine Hpmc 0.3% Eye Drops] 1 drop EYEBOTH Q4H PRN 03/27/16 [ History] Meclizine [Antivert] 25 mg PO QID PRN 03/27/16 [History] Pantoprazole Sodium [Protonix] 40 mg PO DAILY 03/27/16 [History] Docusate Sodium 100 mg PO TID 08/30/16 [History] Metolazone 2.5 mg PO .SUN.THUR 08/30/16 [History] aMILoride HCl [Amiloride HCl] 5 mg PO BID 08/30/16 [History] Insulin Aspart [NovoLOG] 29 unit SUBCUT ACBREAKFAST pen 01/01/17 [Rx] Insulin Aspart [NovoLOG] 30 unit SUBCUT ACLUNCH pen 01/01/17 [Rx] Insulin Aspart [NovoLOG] 38 unit SUBCUT ACDINNER pen 01/01/17 [Rx] Insulin Detemir [Levemir] 62 unit SUBCUT BEDTIME pen 01/01/17 [Rx] Insulin Detemir [Levemir] 75 unit SUBCUT DAILY pen 01/01/17 [Rx] Albuterol Sulfate 2.5 mg IH Q6H PRN 02/05/17 [History] Bumetanide [Bumex] 2 mg PO BIDDIURETIC #60 tablet 02/05/17 [Rx] Past Medical History HEENT History: Reports: Cataract, Impaired Vision, Other (See Below) Other HEENT History: HEARING LOSS TOTAL-RIGHT PARTIAL-LEFT, WEARS BILAT HEARING AIDES Cardiovascular History: Reports: Afib, CAD, Heart Failure, Hypertension, NM, Stents, Other (See Below) Other Cardiovascular History: CAROTID ARTERY DISEASE. HEART FAILURE WITH PRESERVED EJECTION FRACTION. HYPERTENSIVE HEART DISEASE. 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 SUBDURAL HEMATOMA. lorazepam controls headaches from shunt Psychiatric History: Reports: Depression Endocrine/Metabolic History: Reports: Diabetes, Type II, Hypothyroidism, Obesity /BMI 30+, Osteoporosis, Vitamin D Deficiency Hematologic History: Reports: Blood Transfusion(s) Immunologic History: Reports: None Oncologic (Cancer) History: Reports: Malignant Melanoma Dermatologic History: Reports: None - Infectious Disease History Infectious Disease History: Reports: Chicken Pox, Measles, Mumps, Shingles - Past Surgical History Head Surgeries/Procedures: Reports: Shunt HEENT Surgical History: Reports: Adenoidectomy, Cataract Surgery, Tonsillectomy Cardiovascular Surgical History: Reports: Carotid Endarterectomy, Coronary Artery Stent Respiratory Surgical History: Reports: None GI Surgical History: Reports: Appendectomy, Colonoscopy, EGD, Polypectomy, Other (See Below) Other GI Surgeries/Procedures: large colon mostly resected - annotated redundant bowel Female Surgical History: Reports: Breast Biopsy, Cystectomy, Hysterectomy, Salpingo-Oophorectomy, Other (See Below) Other Female Surgeries/Procedures: breast cyst Endocrine Surgical History: Reports: None Neurological Surgical History: Reports: Other (See Below) Other Neurological Surgeries/Procedures: spinal tap and [employer] shunt (2007) Musculoskeletal Surgical History: Reports: None Oncologic Surgical History: Reports: Biopsy of Breast Dermatological Surgical History: Reports: None Social & Family History - Family History Family Medical History: Noncontributory - Tobacco Use Smoking Status *Q: Never Smoker Years of Tobacco use: 10 Used Tobacco, but Quit: Yes Month Tobacco Last Used: 06/11/1982 Second Hand Smoke Exposure: No - Caffeine Use Caffeine Use: Reports: None - Alcohol Use Days Per Week of Alcohol Use: 0 - Recreational Drug Use Recreational Drug Use: No Drug Use in Last 12 Months: No - Living Situation & Occupation Living situation: Reports: with Family Occupation: Retired ED ROS GENERAL - Review of Systems Review Of Systems: See Below Constitutional: Reports: Chills, Decreased Appetite HEENT: Reports: No Symptoms Respiratory: Reports: No Symptoms Cardiovascular: Reports: Edema, Lightheadedness Endocrine: Reports: Fatigue GI/Abdominal: Reports: Nausea. Denies: Abdominal Pain, Diarrhea, Distension, Hematemesis, Vomiting : Reports: No Symptoms Musculoskeletal: Reports: No Symptoms Skin: Reports: No Symptoms Neurological: Reports: Dizziness, Headache (brief, sharp shooting right temporal ). Denies: Tingling, Tremors ED EXAM, GI/ABD - Physical Exam Exam: See Below Exam Limited By: No Limitations General Appearance: Alert, Mild Distress Eyes: Bilateral: Normal Appearance Ears: Normal External Exam, Normal TMs Nose: Normal Inspection Throat/Mouth: Normal Inspection, Normal Lips, Normal Teeth, No Airway Compromise Head: Atraumatic, Normocephalic Neck: Normal Inspection, Supple, Non-Tender, Full Range of Motion Respiratory/Chest: No Respiratory Distress, Lungs Clear GI/Abdominal Exam: Normal Bowel Sounds, Soft Back Exam: Other. No: CVA Tenderness (L), CVA Tenderness (R) Extremities: Normal Inspection, Normal Range of Motion, Normal Capillary Refill Neurological: Alert, Oriented, Normal Cognition Course - Vital Signs Last Recorded V/S: Last Vital Signs Temp 98 F 04/10/17 03:40 Pulse 94 04/10/17 03:40 Resp 18 04/10/17 03:40 BP 130/70 04/10/17 03:40 Pulse Ox 99 04/10/17 03:40 - Orders/Labs/Meds Labs: Laboratory Tests 04/10/17 04/10/17 04/10/17 Range/Units 04:00 04:00 04:00 WBC 10.6 H (5.0-10.0) 10^3/uL RBC 4.14 L (4.2-5.4) 10^6/uL Hgb 12.9 (12.0-16.0) g/dL Hct 39.2 (37.0-47.0) % MCV 94.7 (80-100) fL MCH 31.2 (27.0-34.0) pg MCHC 32.9 L (33.0-35.0) g/dL Plt Count 176 (150-450) 10^3/uL Neut % (Auto) 62.7 (42.2-75.2) % Lymph % (Auto) 14.9 L (20.5-50.1) % [place] % (Auto) 16.7 H (2-8) % Eos % (Auto) 5.4 H (1.0-3.0) % Baso % (Auto) 0.3 (0.0-1.0) % PT (9.0-12.0) SEC INR (0.9-1.2) Sodium 133 L (135-145) mmol/L Potassium 4.4 (3.6-5.0) mmol/L Chloride 94 L (101-111) mmol/L Carbon Dioxide 30.0 (21.0-31.0) mmol/L Anion Gap 13.4 BUN 37 H (7-18) mg/dL Creatinine 1.4 H (0.6-1.3) mg/dL Est Cr Clr Drug Dosing 27.04 mL/min Estimated GFR (MDRD) 37 BUN/Creatinine Ratio 26.42 Glucose 255 H (74-105) mg/dL Lactic Acid 1.9 (0.5-2.2) mmol/L Calcium 9.8 (8.4-10.2) mg/dl Magnesium 1.9 (1.8-2.5) mg/dL Total Bilirubin 0.8 (0.2-1.0) mg/dL AST 53 H (10-42) IU/L ALT 43 (10-60) IU/L Alkaline Phosphatase 120 (42-121) IU/L Troponin I 0.03 H* (0.00-0.02) ng/ml B-Natriuretic Peptide (0-100) pg/ml Total Protein 6.6 L (6.7-8.2) g/dl Albumin 3.6 (3.2-5.5) g/dl Globulin 3.0 Albumin/Globulin Ratio 1.20 Amylase 52 (28-100) U/L Lipase 32 (22-51) U/L Urine Color (YELLOW) Urine Appearance (CLEAR) Urine pH (5.0-9.0) Ur Specific [place] (1.005-1.030) Urine Protein (NEGATIVE) Urine Glucose (UA) (NEGATIVE) Urine Ketones (NEGATIVE) Urine Occult Blood (NEGATIVE) Urine Nitrite (NEGATIVE) Urine Bilirubin (NEGATIVE) Urine Urobilinogen (0.2-1.0) mg/dL Ur Leukocyte Esterase (NEGATIVE) Urine RBC /HPF Urine WBC (0-5/HPF) /HPF Ur Epithelial Cells /HPF Urine Bacteria (0-FEW/HPF) /HPF Hyaline Casts /LPF 04/10/17 04/10/17 04/10/17 Range/Units 04:00 04:00 05:26 WBC (5.0-10.0) 10^3/uL RBC (4.2-5.4) 10^6/uL Hgb (12.0-16.0) g/dL Hct (37.0-47.0) % MCV (80-100) fL MCH (27.0-34.0) pg MCHC (33.0-35.0) g/dL Plt Count (150-450) 10^3/uL Neut % (Auto) (42.2-75.2) % Lymph % (Auto) (20.5-50.1) % [place] % (Auto) (2-8) % Eos % (Auto) (1.0-3.0) % Baso % (Auto) (0.0-1.0) % PT 25.0 H (9.0-12.0) SEC INR 2.5 H (0.9-1.2) Sodium (135-145) mmol/L Potassium (3.6-5.0) mmol/L Chloride (101-111) mmol/L Carbon Dioxide (21.0-31.0) mmol/L Anion Gap BUN (7-18) mg/dL Creatinine (0.6-1.3) mg/dL Est Cr Clr Drug Dosing mL/min Estimated GFR (MDRD) BUN/Creatinine Ratio Glucose (74-105) mg/dL Lactic Acid (0.5-2.2) mmol/L Calcium (8.4-10.2) mg/dl Magnesium (1.8-2.5) mg/dL Total Bilirubin (0.2-1.0) mg/dL AST (10-42) IU/L ALT (10-60) IU/L Alkaline Phosphatase (42-121) IU/L Troponin I (0.00-0.02) ng/ml B-Natriuretic Peptide 162 H (0-100) pg/ml Total Protein (6.7-8.2) g/dl Albumin (3.2-5.5) g/dl Globulin Albumin/Globulin Ratio Amylase (28-100) U/L Lipase (22-51) U/L Urine Color Yellow (YELLOW) Urine Appearance Clear (CLEAR) Urine pH 6.5 (5.0-9.0) Ur Specific [place] 1.010 (1.005-1.030) Urine Protein Negative (NEGATIVE) Urine Glucose (UA) 100 H (NEGATIVE) Urine Ketones Negative (NEGATIVE) Urine Occult Blood Trace-intact H (NEGATIVE) Urine Nitrite Negative (NEGATIVE) Urine Bilirubin Negative (NEGATIVE) Urine Urobilinogen 0.2 (0.2-1.0) mg/dL Ur Leukocyte Esterase Trace H (NEGATIVE) Urine RBC 5-10 H /HPF Urine WBC 5-10 H (0-5/HPF) /HPF Ur Epithelial Cells Few /HPF Urine Bacteria Few (0-FEW/HPF) /HPF Hyaline Casts Few H /LPF Meds: Medications Discontinued Medications Generic Name Dose Route Start Last Admin Trade Name Rita PRN Reason Stop Dose Admin Ondansetron HCl 4 mg 04/10/17 05:30 04/10/17 06:02 Zofran IV 04/10/17 05:31 Not Given ONETIME ONE - Radiology Interpretation Free Text/Narrative:: CXR no acute findings Head CT: Right side shunt in food position without signs of shunt malfunction, Stable bilateral chronic subdural fluid collections Departure - Departure Time of Disposition: 05:52 Disposition: Home, Self-Care 01 Clinical Impression: Nausea alone Fatigue Qualifiers: Fatigue type: unspecified Qualified Code(s): R53.83 - Other fatigue - Discharge Information Instructions: Nausea, Adult Forms: ED Department Discharge Additional Instructions: rest light diet follow up in clinic on Friday zofran 4mg ODT one every 4 hours as needed for nausea #6
[2017-04-10] MEDS ORDERED: Ondansetron 4 MG/2 ML SDV IV ONE (05:30)
--- NOTE | 2017-04-10 23:01 | EKG ---
04/10/2017 - CHIKIS BARRON I reviewed the EKG and agree with the machine's reading. [facility] /[id number]
== END 2017-04-10 05:59 | disposition home or self-care (01) ==
LOC: DL.ED 03:37
DX: R11.0 Nausea (principal); R53.83 Other fatigue; I13.0 Hypertensive heart and chronic kidney disease with heart failure and stage 1 through stage 4 chronic kidney disease, or unspecified chronic kidney disease; I50.9 Heart failure, unspecified; N18.3 Chronic kidney disease, stage 3 (moderate); E11.22 Type 2 diabetes mellitus with diabetic chronic kidney disease; E03.9 Hypothyroidism, unspecified; Z88.5 Allergy status to narcotic agent; Z91.041 Radiographic dye allergy status; Z88.2 Allergy status to sulfonamides; Z88.1 Allergy status to other antibiotic agents; Z88.8 Allergy status to other drugs, medicaments and biological substances; Z79.899 Other long term (current) drug therapy; Z79.4 Long term (current) use of insulin; Z88.0 Allergy status to penicillin; Z88.7 Allergy status to serum and vaccine; Z87.891 Personal history of nicotine dependence
CPT/HCPCS: 36415; 70450; 71045; 80053; 81001; 82150; 83605; 83690; 83735; 83880; 84484; 85025; 85610; 87040; 93005; 99285

== ENCOUNTER 2017-05-02 08:28 | Inpatient (IN) | payer MEDICARE, BC, OTHER ==
--- NOTE | 2017-05-02 08:37 | EDM.PDOC ---
ED HPI GENERAL MEDICAL PROBLEM - General Chief Complaint: Headache Stated Complaint: headache/nausae 1 week [phone] Time Seen by Provider: 05/02/17 08:37 Source of Information: Reports: Patient, Old Records, RN, RN Notes Reviewed History Limitations: Reports: No Limitations - History of Present Illness INITIAL COMMENTS - FREE TEXT/NARRATIVE: Arrives from home by POV with c/o "sick for 4 days" with dry cough, shortness of breath, fever, and headache & stomach pain which are worse with coughing. Pt states her shortness of breath has gotten to the point that she become short of breath just waking 1/[address] across the room. She has been using nebulizers and they are not helping like they usually do. Onset Date: 04/28/17 Duration: Constant, Getting Worse Location: Reports: Chest, Generalized Severity: Severe Improves with: Reports: None Worsens with: Reports: None Treatments LINE SERVER: Reports: Breathing Treatments Posterior Headache Pain Score (Numeric/FACES): 8 - Related Data Allergies Allergy/AdvReac Type Severity Reaction Status Date / Time codeine Allergy Severe Rash Verified 04/10/17 03:50 Iodinated Contrast- Oral and Allergy Severe Other Verified 04/10/17 03:50 IV Dye [Iodinated Contrast Media - IV Dye] Penicillins Allergy Severe Hives Verified 04/10/17 03:50 pentazocine [From Talwin] Allergy Severe Delusions Verified 04/10/17 03:50 Sulfa (Sulfonamide Allergy Severe Hives Verified 04/10/17 03:50 Antibiotics) sulfamethoxazole Allergy Severe Hives Verified 04/10/17 03:50 [From Bactrim] trimethoprim [From Bactrim] Allergy Severe Hives Verified 04/10/17 03:50 ampicillin Allergy Intermediate Hives Verified 04/10/17 03:50 atorvastatin calcium Allergy Mild Muscle Verified 04/10/17 03:50 [From Lipitor] Aches duloxetine HCl Allergy Mild Nausea Verified 04/10/17 03:50 [From Cymbalta] indomethacin [From Indocin] Allergy Mild Headache Verified 04/10/17 03:50 indomethacin sodium Allergy Mild Headache Verified 04/10/17 03:50 [From Indocin] lactose Allergy Mild Diarrhea Verified 04/10/17 03:50 lisinopril Allergy Mild Cough Verified 04/10/17 03:50 metolazone Allergy Mild Muscle Verified 04/10/17 03:50 Aches metoprolol Allergy Mild Fatigue Verified 04/10/17 03:50 oxycodone [Oxycodone] Allergy Mild Other Verified 04/10/17 03:50 pravastatin Allergy Mild Muscle Verified 04/10/17 03:50 Aches simvastatin Allergy Mild Muscle Verified 04/10/17 03:50 Aches spironolactone Allergy Mild Headache Verified 04/10/17 03:50 tuberculin, purified protein Allergy Mild Rash Verified 04/10/17 03:50 deriva [tuberculin,purif.prot.deriv.] clonazepam [From Klonopin] Allergy Other Verified 04/10/17 03:50 hydrochlorothiazide Allergy Lethargy Verified 04/10/17 03:50 tetanus toxoid, adsorbed Allergy Other Verified 04/10/17 03:50 zoster vaccine live Allergy Cannot Verified 04/10/17 03:50 Remember flannel Allergy Burning Uncoded 04/10/17 03:50 Home Meds: Home Meds Isosorbide Mononitrate [Imdur] 60 mg PO DAILY 11/25/13 [History] LORazepam [Ativan] 1 mg PO BEDTIME PRN 11/25/13 [History] Levothyroxine Sodium [Synthroid] 150 mcg PO ACBREAKFAST 11/25/13 [History] Nitroglycerin [Nitrostat] 0.4 mg SL Q5M PRN MDD 3 11/25/13 [History] Psyllium [Metamucil SF] 1 tbsp PO DAILY PRN 11/25/13 [History] amLODIPine Besylate [Amlodipine Besylate] 2.5 mg PO DAILY 11/25/13 [History] Acetaminophen 650 mg PO Q6HR PRN 03/28/15 [History] Albuterol [Proventil HFA] 2 inh INH ASDIRECTED PRN 03/28/15 [History] Potassium Chloride 40 meq PO TID 03/28/15 [History] Cholecalciferol (Vitamin D3) [Vitamin D3] 1,000 units PO TID 03/29/15 [History] Warfarin [Coumadin] 3 mg PO BEDTIME 10/30/15 [History] hydrALAZINE HCl [Hydralazine HCl] 50 mg PO BID 10/30/15 [History] Carvedilol [Coreg] 6.25 mg PO BIDMEALS 03/27/16 [History] Cyanocobalamin (Vitamin B12) [Vitamin B12] 500 mcg PO BEDTIME 03/27/16 [History] Hypromellose/PF [Retaine Hpmc 0.3% Eye Drops] 1 drop EYEBOTH Q4H PRN 03/27/16 [ History] Meclizine [Antivert] 25 mg PO QID PRN 03/27/16 [History] Pantoprazole Sodium [Protonix] 40 mg PO DAILY 03/27/16 [History] Docusate Sodium 100 mg PO TID 08/30/16 [History] Metolazone 2.5 mg PO .SUN.THUR 08/30/16 [History] aMILoride HCl [Amiloride HCl] 5 mg PO BID 08/30/16 [History] Insulin Aspart [NovoLOG] 29 unit SUBCUT ACBREAKFAST pen 01/01/17 [Rx] Insulin Aspart [NovoLOG] 30 unit SUBCUT ACLUNCH pen 01/01/17 [Rx] Insulin Aspart [NovoLOG] 38 unit SUBCUT ACDINNER pen 01/01/17 [Rx] Insulin Detemir [Levemir] 62 unit SUBCUT BEDTIME pen 01/01/17 [Rx] Insulin Detemir [Levemir] 75 unit SUBCUT DAILY pen 01/01/17 [Rx] Albuterol Sulfate 2.5 mg IH Q6H PRN 02/05/17 [History] Bumetanide [Bumex] 2 mg PO BID 05/02/17 [History] Clarithromycin [Clarithromycin ER] 500 mg PO DAILY 05/02/17 [History] predniSONE [Prednisone] 5 mg PO DAILY 05/02/17 [History] traMADol [Ultram] 50 mg PO PRN 05/02/17 [History] Past Medical History HEENT History: Reports: Cataract, Impaired Vision, Other (See Below) Other HEENT History: HEARING LOSS TOTAL-RIGHT PARTIAL-LEFT, WEARS BILAT HEARING AIDES Cardiovascular History: Reports: Afib, CAD, Heart Failure, Hypertension, DC, Stents, Other (See Below) Other Cardiovascular History: CAROTID ARTERY DISEASE. HEART FAILURE WITH PRESERVED EJECTION FRACTION. HYPERTENSIVE HEART DISEASE. TIA Respiratory History: Reports: Asthma, Bronchitis, Recurrent, Sleep Apnea Gastrointestinal History: Reports: Chronic Constipation, GERD, Hemorrhoids, Irritable Bowel Syndrome Genitourinary History: Reports: Chronic Renal Insuffiency, Renal Calculus, Other (See Below) Other Genitourinary History: CKD STAGE III HYDRAULIC MINER BLASTING History: Reports: Other (See Below) Other OB/BYN History: UTERUS WAS ADHESED TO HER SPINE Musculoskeletal History: Reports: Back Pain, Chronic, Fracture, Osteoarthritis Other Musculoskeletal History: FRACTURED ARM WHEN SHE WAS YOUNG Neurological History: Reports: TIA, Other (See Below) Other Neuro History: NORMAL PRESSURE HYDROCEPHALUS. SUBDURAL HEMATOMA. lorazepam controls headaches from shunt Psychiatric History: Reports: Depression Endocrine/Metabolic History: Reports: Diabetes, Type II, Hypothyroidism, Obesity /BMI 30+, Osteoporosis, Vitamin D Deficiency Hematologic History: Reports: Blood Transfusion(s) Immunologic History: Reports: None Oncologic (Cancer) History: Reports: Malignant Melanoma Dermatologic History: Reports: None - Infectious Disease History Infectious Disease History: Reports: Chicken Pox, Measles, Mumps, Shingles - Past Surgical History Head Surgeries/Procedures: Reports: Shunt HEENT Surgical History: Reports: Adenoidectomy, Cataract Surgery, Tonsillectomy Cardiovascular Surgical History: Reports: Carotid Endarterectomy, Coronary Artery Stent Respiratory Surgical History: Reports: None GI Surgical History: Reports: Appendectomy, Colonoscopy, EGD, Polypectomy, Other (See Below) Other GI Surgeries/Procedures: large colon mostly resected - annotated redundant bowel Female Surgical History: Reports: Breast Biopsy, Cystectomy, Hysterectomy, Salpingo-Oophorectomy, Other (See Below) Other Female Surgeries/Procedures: breast cyst Endocrine Surgical History: Reports: None Neurological Surgical History: Reports: Other (See Below) Other Neurological Surgeries/Procedures: spinal tap and OBEDIENCE TRAINER shunt (2007) Musculoskeletal Surgical History: Reports: None Oncologic Surgical History: Reports: Biopsy of Breast Dermatological Surgical History: Reports: None Social & Family History - Family History Family Medical History: Noncontributory - Tobacco Use Smoking Status *Q: Never Smoker Years of Tobacco use: 10 Used Tobacco, but Quit: Yes Month Tobacco Last Used: 06/11/1982 Second Hand Smoke Exposure: No - Caffeine Use Caffeine Use: Reports: None - Alcohol Use Days Per Week of Alcohol Use: 0 - Recreational Drug Use Recreational Drug Use: No Drug Use in Last 12 Months: No - Living Situation & Occupation Living situation: Reports: with Family Occupation: Retired ED ROS GENERAL - Review of Systems Review Of Systems: ROS reveals no pertinent complaints other than HPI. ED EXAM, GENERAL - Physical Exam Exam: See Below Exam Limited By: No Limitations General Appearance: Alert, Obese, Other (chronically ill, uncomfortable, but non -toxic appearing) Eye Exam: Bilateral Eye: Normal Inspection Ears: Normal External Exam, Hearing Grossly Normal Nose: No Blood, Nasal Drainage (mild clear nasal drainage) Throat/Mouth: Normal Lips, Normal Teeth, Normal Gums, Normal Oropharynx, Normal Voice, No Airway Compromise, Other (dry oral membranes) Head: Atraumatic, Normocephalic, Other ([employer]IENCE TRAINER shunt button at Rt parietal scalp is soft and non-tender) Neck: Normal Inspection, Supple, Non-Tender, Full Range of Motion. No: Lymphadenopathy (L), Lymphadenopathy (R) Respiratory/Chest: No Respiratory Distress, No Accessory Muscle Use, Decreased Breath Sounds, Crackles, Wheezing, Other (dry cough). No: Rales, Rhonchi, Stridor Cardiovascular: Tachycardia, Irregularly Irregular GI/Abdominal: Normal Bowel Sounds, Soft, Non-Tender, No Distention, Other ( benign obese abdomen). No: Guarding, Rigid, Rebound (Female) Exam: Deferred Rectal (Female) Exam: Deferred Back Exam: Normal Inspection. No: CVA Tenderness (L), CVA Tenderness (R) Extremities: Normal Inspection, Normal Range of Motion, Non-Tender, Other ( trace pedal edema) Neurological: Alert, Oriented, CN II-XII Intact, Normal Cognition, No Motor/ Sensory Deficits Psychiatric: Normal Mood Skin Exam: Warm, Dry, Intact, Normal Color, No Rash Course - Vital Signs Last Recorded V/S: Last Vital Signs Temp 38.2 C H 05/02/17 08:49 Pulse 107 H 05/02/17 09:25 Resp 16 05/02/17 08:49 BP 158/41 H 05/02/17 08:49 Pulse Ox 95 05/02/17 09:25 - Orders/Labs/Meds Orders: Active Orders 24 hr Category Date Time Status Oxygen Therapy Adult [Oxygen Therapy, ED] [RC] Care 05/02/17 09:46 Active CONTINUOUS Peripheral IV Care [RC] . DIRECTED Care 05/02/17 09:23 Active RT Aerosol Therapy [RC] ASDIRECTED Care 05/02/17 09:25 Active CULTURE BLOOD [BC] Stat Lab 05/02/17 09:42 Received CULTURE BLOOD [BC] Stat Lab 05/02/17 09:58 Received CULTURE STREP A CONFIRMATION [] Stat Lab 05/02/17 09:29 Results STREP SCRN A RAPID W CULT CONF [RM] Stat Lab 05/02/17 09:29 Results UA W/MICROSCOPIC [URIN] Stat Lab 05/02/17 09:23 Ordered Sodium Chloride 0.9% [Saline Flush] Med 05/02/17 09:23 Active 10 ml FLUSH ASDIRECTED PRN Blood Culture x2 Reflex Set [OM.PC] Stat Oth 05/02/17 09:23 Ordered Peripheral IV Insertion Adult [OM.PC] Stat Oth 05/02/17 09:23 Ordered Medication Orders Sodium Chloride (Saline Flush) 10 ml FLUSH ASDIRECTED PRN PRN Reason: Keep Vein Open Labs: Laboratory Tests 05/02/17 05/02/17 05/02/17 Range/Units 09:42 09:42 09:42 WBC 9.3 (5.0-10.0) 10^3/uL RBC 4.25 (4.2-5.4) 10^6/uL Hgb 13.5 (12.0-16.0) g/dL Hct 41.6 (37.0-47.0) % MCV 97.9 D (80-100) fL MCH 31.8 (27.0-34.0) pg MCHC 32.5 L (33.0-35.0) g/dL Plt Count 168 (150-450) 10^3/uL Neut % (Auto) 66.8 (42.2-75.2) % Lymph % (Auto) 9.4 L (20.5-50.1) % [place] % (Auto) 23.1 H (2-8) % Eos % (Auto) 0.4 L (1.0-3.0) % Baso % (Auto) 0.3 (0.0-1.0) % Add Manual Diff Yes Neutrophils % (Manual) 77 H (42-75) % Lymphocytes % (Manual) 5 L (20-50) % Monocytes % (Manual) 18 H (2-8) % PT 17.9 H (9.0-12.0) SEC INR 1.8 H (0.9-1.2) Sodium 136 (135-145) mmol/L Potassium 4.0 (3.6-5.0) mmol/L Chloride 99 L (101-111) mmol/L Carbon Dioxide 28.0 (21.0-31.0) mmol/L Anion Gap 13.0 BUN 21 H (7-18) mg/dL Creatinine 1.3 (0.6-1.3) mg/dL Est Cr Clr Drug Dosing 29.12 mL/min Estimated GFR (MDRD) 40 BUN/Creatinine Ratio 16.15 Glucose 98 (74-105) mg/dL Lactic Acid (0.5-2.2) mmol/L Calcium 9.2 (8.4-10.2) mg/dl Total Bilirubin 0.8 (0.2-1.0) mg/dL AST 109 H (10-42) IU/L ALT 45 (10-60) IU/L Alkaline Phosphatase 116 (42-121) IU/L B-Natriuretic Peptide 459 H (0-100) pg/ml Total Protein 7.0 (6.7-8.2) g/dl Albumin 3.4 (3.2-5.5) g/dl Globulin 3.6 Albumin/Globulin Ratio 0.94 /11/11 Range/Units 09:58 WBC (5.0-10.0) 10^3/uL RBC (4.2-5.4) 10^6/uL Hgb (12.0-16.0) g/dL Hct (37.0-47.0) % MCV (80-100) fL MCH (27.0-34.0) pg MCHC (33.0-35.0) g/dL Plt Count (150-450) 10^3/uL Neut % (Auto) (42.2-75.2) % Lymph % (Auto) (20.5-50.1) % [place] % (Auto) (2-8) % Eos % (Auto) (1.0-3.0) % Baso % (Auto) (0.0-1.0) % Add Manual Diff Neutrophils % (Manual) (42-75) % Lymphocytes % (Manual) (20-50) % Monocytes % (Manual) (2-8) % PT (9.0-12.0) SEC INR (0.9-1.2) Sodium (135-145) mmol/L Potassium (3.6-5.0) mmol/L Chloride (101-111) mmol/L Carbon Dioxide (21.0-31.0) mmol/L Anion Gap BUN (7-18) mg/dL Creatinine (0.6-1.3) mg/dL Est Cr Clr Drug Dosing mL/min Estimated GFR (MDRD) BUN/Creatinine Ratio Glucose (74-105) mg/dL Lactic Acid 1.2 (0.5-2.2) mmol/L Calcium (8.4-10.2) mg/dl Total Bilirubin (0.2-1.0) mg/dL AST (10-42) IU/L ALT (10-60) IU/L Alkaline Phosphatase (42-121) IU/L B-Natriuretic Peptide (0-100) pg/ml Total Protein (6.7-8.2) g/dl Albumin (3.2-5.5) g/dl Globulin Albumin/Globulin Ratio Meds: Medications Generic Name Dose Route Start Last Admin Trade Name Freq PRN Reason Stop Dose Admin Sodium Chloride 10 ml 05/02/17 09:23 Saline Flush FLUSH ASDIRECTED PRN Keep Vein Open Discontinued Medications Generic Name Dose Route Start Last Admin Trade Name Freq PRN Reason Stop Dose Admin Acetaminophen 650 mg 05/02/17 09:26 05/02/17 09:51 Tylenol PO 05/02/17 09:27 650 mg NOW ONE Administration Albuterol/Ipratropium 3 ml 05/02/17 09:25 05/02/17 09:29 Duoneb 3.0-0.5 Mg/3 Ml NEB 05/02/17 09:26 3 ml ONETIME ONE Administration Albuterol/Ipratropium Confirm 05/02/17 09:27 05/02/17 09:29 Duoneb 3.0-0.5 Mg/3 Ml Administered 05/02/17 09:28 Not Given Dose 3 ml .ROUTE .STK-MED ONE - Radiology Interpretation Free Text/Narrative:: CXR: chronic cardiomegaly, no new signs of lobar pneumonia or acute heart failure per Rad. report. Departure - Departure Time of Disposition: 10:50 (admitted to Dr. Jones) Disposition: Admitted As Inpatient 66 Condition: Serious Clinical Impression: Influenza A, Hypoxia - Discharge Information Referrals: Red Yates MD [Primary Care Provider] - Forms: ED Department Discharge - My Orders Last 24 Hours: My Active Orders 05/02/17 09:23 Peripheral IV Care [RC] . DIRECTED UA W/MICROSCOPIC [URIN] Stat Sodium Chloride 0.9% [Saline Flush] 10 ml FLUSH ASDIRECTED PRN Blood Culture x2 Reflex Set [OM.PC] Stat Peripheral IV Insertion Adult [OM.PC] Stat 05/02/17 09:25 RT Aerosol Therapy [RC] ASDIRECTED 05/02/17 09:29 CULTURE STREP A CONFIRMATION [RM] Stat STREP SCRN A RAPID W CULT CONF [RM] Stat 05/02/17 09:42 CULTURE BLOOD [BC] Stat 05/02/17 09:46 Oxygen Therapy Adult [Oxygen Therapy, ED] [RC] CONTINUOUS 05/02/17 09:58 CULTURE BLOOD [BC] Stat - Assessment/Plan Last 24 Hours: My Active Orders 05/02/17 09:23 Peripheral IV Care [RC] . DIRECTED UA W/MICROSCOPIC [URIN] Stat Sodium Chloride 0.9% [Saline Flush] 10 ml FLUSH ASDIRECTED PRN Blood Culture x2 Reflex Set [OM.PC] Stat Peripheral IV Insertion Adult [OM.PC] Stat 05/02/17 09:25 RT Aerosol Therapy [RC] ASDIRECTED 05/02/17 09:29 CULTURE STREP A CONFIRMATION [RM] Stat STREP SCRN A RAPID W CULT CONF [RM] Stat 05/02/17 09:42 CULTURE BLOOD [BC] Stat 05/02/17 09:46 Oxygen Therapy Adult [Oxygen Therapy, ED] [RC] CONTINUOUS 05/02/17 09:58 CULTURE BLOOD [BC] Stat
[2017-05-02] MEDS ORDERED: Albuterol/Ipratropium 3.0-0.5 MG/3 ML Neb Soln NEB ONE (09:25)
[2017-05-02] MEDS ORDERED: Acetaminophen 325 MG Tab PO ONE (09:26)
[2017-05-02] MEDS ORDERED: Albuterol/Ipratropium 3.0-0.5 MG/3 ML Neb Soln ONE (09:27)
--- NOTE | 2017-05-02 10:19 | CR ---
Clinical history: 76-year-old female with fever and cough. Interpretation: Chronic mild cardiomegaly unchanged except for technique since 10 April 2017 exam (external cardia c monitor leads). No cephalization of vascular flow, signs of alveolar edema or dependent pleural effusion. Reasonable inspiratory effort obese female. *No new lung mass, hilar lymphadenopathy or focal lobar p neumonia. No atelectasis/collapse. No pneumothorax. Midline tracheal airway unremarkable. CONCLUSION: Chronic cardiomegaly. No new signs of lobar pneumonia or heart failure.
[2017-05-02] MEDS ORDERED: Psyllium Husk Powder Sugar Free 5.85 GM Packet PO PRN (11:55)
[2017-05-02] MEDS ORDERED: Carboxymethylcellulose Sodium 1% Ophth Gel 0.4 ML UD EYEBOTH PRN (11:59)
[2017-05-02] MEDS ORDERED: traMADol 50 MG Tab PO PRN (12:00)
[2017-05-02] MEDS ORDERED: Sodium Chloride 0.9% 10 ML Syringe FLUSH PRN (12:01)
[2017-05-02] MEDS ORDERED: Benzocaine/Cetylpyridinium/Menthol Lozenge MUCMEM PRN (12:14)
[2017-05-02] MEDS ORDERED: guaiFENesin/Dextromethorphan 100-10 MG/5 ML Soln 5 ML Cup PO PRN (12:14)
--- NOTE | 2017-05-02 12:32 | PCM.PN ---
- General Info Date of Service: 05/02/17 Admission Dx/Problem (Free Text): cough, shortness of breath, hypoxemia Subjective Update: the patient is a 76-year-old lady with a history of COPD, congestive heart failure with diastolic dysfunction, atrial fibrillation, diabetes, morbid obesity. Patient presented with increasing shortness of breath associated with nonproductive cough for about 7 days. She has fever and chills. the fever is associated with headache. She went to see her primary care physician on 01 May. she was started on prednisone and Biaxin. She continued to have cough and came into the emergency room. She does not feel that her swelling is worse lately. - Review of Systems General: Reports: Fever, Weakness. Denies: Appetite (lack of appetite) Pulmonary: Reports: Shortness of Breath Cardiovascular: Reports: Edema (chronic, moderate). Denies: Chest Pain, Palpitations Gastrointestinal: Reports: Nausea. Denies: Abdominal Pain Neurological: Denies: Confusion - Patient Data Vitals - Most Recent: Last Vital Signs Temp 38.2 C H 05/02/17 08:49 Pulse 107 H 05/02/17 09:25 Resp 16 05/02/17 08:49 BP 158/41 H 05/02/17 08:49 Pulse Ox 95 05/02/17 09:25 Weight - Most Recent: 106.141 kg Lab Results Last 24 Hours: Laboratory Results - last 24 hr 05/02/17 Range/Units 11:40 POC Glucose 109 (83-110) mg/dl Med Orders - Current: Current Medications Acetaminophen (Tylenol) 650 mg PO Q6HR PRN PRN Reason: Pain or fever Albuterol/Ipratropium (Duoneb 3.0-0.5 Mg/3 Ml) 3 ml NEB Q6HRRT REPLACED BY [facility] Allopurinol (Zyloprim) 100 mg PO BID [facility] Amlodipine Besylate (Norvasc) 2.5 mg PO DAILY [facility] Artificial Tears (Refresh Celluvisc) 0 each EYEBOTH Q2H PRN PRN Reason: Dry Eyes Benzocaine/Menthol (Cepacol Sore Throat) 1 lozenge MUCMEM Q6HR PRN PRN Reason: Sore Throat Budesonide (Pulmicort) 0.5 mg NEB BIDRT [facility] Bumetanide (Bumex) 2 mg PO TIDAC [facility] Calcitriol (Rocaltrol) 0.25 mcg PO Q48H REPLACED BY [facility] Carvedilol (Coreg) 6.25 mg PO BIDMEALS REPLACED BY [facility] Cholecalciferol (Vitamin D3) 1,000 units PO TID REPLACED BY [facility] Docusate Sodium (Colace) 100 mg PO BID REPLACED BY [facility] Guaifenesin/Phenylephrine HCl (Robitussin Dm) 10 ml PO Q6H PRN PRN Reason: Cough Hydralazine HCl (Apresoline) 50 mg PO BID REPLACED BY [facility] Insulin Aspart (Novolog) 0 unit SUBCUT TIDAC REPLACED BY [facility] PRN Reason: Protocol Insulin Aspart (Novolog) 26 unit SUBCUT ACBREAKFAST REPLACED BY [facility] Insulin Aspart (Novolog) 30 unit SUBCUT ACLUNCH REPLACED BY [facility] Insulin Aspart (Novolog) 38 unit SUBCUT ACDINNER REPLACED BY [facility] Insulin Detemir (Levemir) 62 unit SUBCUT BEDTIME REPLACED BY [facility] Insulin Detemir (Levemir) 75 unit SUBCUT DAILY REPLACED BY [facility] Isosorbide Mononitrate (Imdur) 60 mg PO ACBRK REPLACED BY [facility] Levothyroxine Sodium (Levothyroxine) 150 mcg PO ACBREAKFAST REPLACED BY [facility] Lorazepam (Ativan) 1 mg PO BEDTIME REPLACED BY [facility] Methylprednisolone Sodium Succinate (Solu-Medrol) 40 mg IVPUSH Q8HR REPLACED BY [facility] Metolazone (Zaroxolyn) 2.5 mg PO SuTh@0900 REPLACED BY [facility] Non-Formulary Medication (Amiloride) 5 mg PO BID REPLACED BY [facility] Oseltamivir Phosphate (Tamiflu) 30 mg PO BID REPLACED BY [facility] Pantoprazole Sodium (Protonix) 40 mg PO DAILY REPLACED BY [facility] Potassium Chloride (Klor-Con 10) 40 meq PO TID REPLACED BY [facility] Psyllium Husk (Metamucil Sugar Free) 1 pkt PO DAILY PRN PRN Reason: Constipation Sodium Chloride (Saline Flush) 10 ml FLUSH ASDIRECTED PRN PRN Reason: Keep Vein Open Sodium Chloride (Saline Flush) 10 ml FLUSH ASDIRECTED PRN PRN Reason: Keep Vein Open Tramadol HCl (Ultram) 50 mg PO Q6H PRN PRN Reason: Pain Warfarin Sodium (Pharmacy To Dose - Warfarin) 1 dose .XX ASDIRECTED REPLACED BY [facility] Discontinued Medications Acetaminophen (Tylenol) 650 mg PO NOW ONE Stop: 05/02/17 09:27 Last Admin: 05/02/17 09:51 Dose: 650 mg Albuterol/Ipratropium (Duoneb 3.0-0.5 Mg/3 Ml) 3 ml NEB ONETIME ONE Stop: 05/02/17 09:26 Last Admin: 05/02/17 09:29 Dose: 3 ml Albuterol/Ipratropium (Duoneb 3.0-0.5 Mg/3 Ml) Confirm Administered Dose 3 ml .ROUTE .STK-MED ONE Stop: 05/02/17 09:28 Last Admin: 05/02/17 09:29 Dose: Not Given - Exam Quality Assessment: Supplemental Oxygen General: Alert, Oriented Neck: Supple Lungs: Normal Respiratory Effort, Wheezing Cardiovascular: Irregular Rhythm GI/Abdominal Exam: Normal Bowel Sounds, Soft, Non-Tender Extremities: Pedal Edema (1+ bilateral) Neurological: No New Focal Deficit Psy/Mental Status: Alert, Normal Affect, Normal Mood - Problem List & Annotations (1) Hypoxia SNOMED Code(s): 575176857 Code(s): R09.02 - HYPOXEMIA Status: Acute Current Visit: Yes (2) Influenza A SNOMED Code(s): 864825607 Code(s): J10.1 - FLU DUE TO OTH IDENT INFLUENZA VIRUS W OTH RESP MANIFEST Status: Acute Current Visit: Yes (3) Bronchitis SNOMED Code(s): 59895179 Code(s): J40 - BRONCHITIS, NOT SPECIFIED ACUTE OR CHRONIC Status: Acute Current Visit: No (4) CHF (congestive heart failure) SNOMED Code(s): 55538168 Code(s): I50.9 - HEART FAILURE, UNSPECIFIED Status: Acute Current Visit: No Qualifiers: Qualified Code(s): I50.9 - Heart failure, unspecified (5) Chronic atrial fibrillation SNOMED Code(s): 989692189 Code(s): I48.2 - CHRONIC ATRIAL FIBRILLATION Status: Acute Current Visit : No - Problem List Review Problem List Initiated/Reviewed/Updated: Yes - My Orders Last 24 Hours: My Active Orders 05/02/17 11:36 CULTURE SPUTUM + SMEAR [RM] Routine 05/02/17 11:50 RT Aerosol Therapy [RC] ASDIRECTED 05/02/17 11:51 RT Aerosol Therapy [RC] ASDIRECTED 05/02/17 11:53 Glucose [Blood Glucose Check, Bedside] [RC] QIDACANDBED 05/02/17 11:55 Acetaminophen [Tylenol] 650 mg PO Q6HR PRN Psyllium [Metamucil SF] 1 tbsp PO DAILY PRN 05/02/17 11:59 Carboxymethylcellulose Sodium [Refresh Celluvisc] See Dose Instructions EYEBOTH ASDIRECTED PRN 05/02/17 12:00 Calcitriol [Rocaltrol] 0.25 mcg PO Q48H Metolazone [Zaroxolyn] 2.5 mg PO .SUN.LESA Oseltamivir [Tamiflu] 30 mg PO BID Warfarin Pharmacy to Dose [Pharmacy to Dose - Warfarin] 1 dose .XX ASDIRECTED methylPREDNISolone Sod Succ [Solu-MEDROL] 40 mg IVPUSH Q8H traMADol [Ultram] 50 mg PO Q6H PRN 05/02/17 12:01 Patient Status [ADT] Routine CPAP Adult [RT BiPAP/CPAP] [RC] BEDTIME Oxygen Therapy [RC] PRN Up With Assistance [RC] ASDIRECTED VTE/DVT Education [RC] PER UNIT ROUTINE Vital Signs [RC] Q4H Sodium Chloride 0.9% [Saline Flush] 10 ml FLUSH ASDIRECTED PRN Saline Lock Insert [OM.PC] Routine Resuscitation Status Routine 05/02/17 12:02 Antiembolic Hose [OM.PC] Per Unit Routine 05/02/17 12:03 Antiembolic Devices [RC] PER UNIT ROUTINE 05/02/17 12:14 Benzocaine/Cetylpyrd/Menthol [Cepacol Sore Throat] 1 lozenge MUCMEM Q6HR PRN Dextromethorphan/guaiFENesin [Robitussin DM] 10 ml PO Q6H PRN 05/02/17 13:00 Albuterol/Ipratropium [DuoNeb 3.0-0.5 MG/3 ML] 3 ml NEB Q6HRRT 05/02/17 14:00 Bumetanide [Bumex] 2 mg PO TID Cholecalciferol (Vitamin D3) [Vitamin D3] 1,000 units PO TID Potassium Chloride [Potassium Chloride] 40 meq PO TID 05/02/17 17:00 Insulin Aspart [NovoLOG] 38 unit SUBCUT ACDINNER Insulin Aspart [NovoLOG] See Protocol SUBCUT TIDAC 05/02/17 18:00 Budesonide [Pulmicort] 0.5 mg NEB BIDRT Carvedilol [Coreg] 6.25 mg PO BIDMEALS 05/02/17 21:00 Allopurinol [Zyloprim] 100 mg PO BID Docusate Sodium [Colace] 100 mg PO BID Insulin Detemir [Levemir] 62 unit SUBCUT BEDTIME LORazepam [Ativan] 1 mg PO BEDTIME aMILoride 5 mg PO BID hydrALAZINE HCl [Hydralazine HCl] 50 mg PO BID 05/02/17 Dinner Consistent Carbohydrate Diet [DIET] 05/03/17 05:15 BASIC METABOLIC PANEL,BMP [CHEM] AM CBC WITH AUTO DIFF [HEME] AM 05/03/17 06:00 Insulin Aspart [NovoLOG] 26 unit SUBCUT ACBREAKFAST Levothyroxine 150 mcg PO ACBREAKFAST 05/03/17 09:00 Insulin Detemir [Levemir] 75 unit SUBCUT DAILY Isosorbide Mononitrate [Imdur] 60 mg PO DAILY Pantoprazole [ProTONIX] 40 mg PO DAILY amLODIPine Besylate [Amlodipine Besylate] 2.5 mg PO DAILY 05/03/17 11:00 Insulin Aspart [NovoLOG] 30 unit SUBCUT ACLUNCH - Plan Plan:: Presented with dry cough, fever, increasing shortness of breath. Noted to have hypoxemia in the emergency room with activity. Acute hypoxemic respiratory failure Well supplement oxygen as needed Acute COPD exacerbation Well treat with IV steroids, DuoNeb, pulmicort Will use systemic steroids and tapered down Acute influenza Treat with Tamiflu, supportive care Hypertension Treat with Norvasc, hydralazine, amiloride, Bumex Diabetes Blood sugars were likely increase with the steroid use We will manage with Levemir, meal time Humalog and supplemental insulin combination Chronic diastolic congestive heart failure Well continue diuretics with amiloride, Bumex, metolazone Chronic kidney disease stage III Monitor electrolytes and renal function test with diuretics Coronary artery disease Manage with imdur, Coreg, no on asa while on coumadin Chronic Atrial fibrillation Rate control with Coreg, Anticoagulation with Coumadin Obstructive sleep apnea Continue CPAP DVT prophylaxis with full dose anticoagulation with Coumadin
[2017-05-02] MEDS ORDERED: Warfarin 2 MG Tab PO ONE (14:00)
[2017-05-02] MEDS: Oseltamivir 30 MG Cap PO SCH ×2 (14:07→21:39)
[2017-05-02] MEDS: Albuterol/Ipratropium 3.0-0.5 MG/3 ML Neb Soln NEB SCH ×2 (14:08→17:31)
[2017-05-02] MEDS: methylPREDNISolone Sodium Succinate 40 MG/1 ML SDV IVPUSH SCH ×2 (14:08→21:42)
[2017-05-02] MEDS: Potassium Chloride 10 MEQ Tab.ER PO SCH ×2 (14:08→21:31)
[2017-05-02] MEDS: Cholecalciferol (Vitamin D3) 400 Unit Tab PO SCH ×2 (14:08→21:37)
[2017-05-02] MEDS: Budesonide 0.5 MG/2 ML Neb Susp NEB SCH (17:31)
[2017-05-02] MEDS: Bumetanide 1 MG Tab PO SCH (17:43)
[2017-05-02] MEDS: Insulin Aspart 100 Units/ML 3 ML Pen SUBCUT SCH ×2 (17:44)
[2017-05-02] MEDS: Carvedilol 6.25 MG Tab PO SCH (17:46)
[2017-05-02] MEDS: hydrALAZINE 25 MG Tab PO SCH (21:31)
[2017-05-02] MEDS: Insulin Detemir 100 Units/ML 3 ML Pen SUBCUT SCH (21:34)
[2017-05-02] MEDS: Docusate Sodium 100 MG Cap PO SCH (21:39)
[2017-05-02] MEDS: Allopurinol 100 MG Tab PO SCH (21:39)
[2017-05-02] MEDS: LORazepam 1 MG Tab PO SCH (21:39)
[2017-05-02] MEDS: AMILORIDE 5 MG PO SCH (21:41)
[2017-05-03] MEDS: Albuterol/Ipratropium 3.0-0.5 MG/3 ML Neb Soln NEB SCH ×4 (00:30→17:58)
[2017-05-03] MEDS: Levothyroxine 150 MCG Tab PO SCH (05:48)
[2017-05-03] MEDS: Pantoprazole 40 MG Tab.CR PO SCH (05:48)
[2017-05-03] MEDS: Isosorbide Mononitrate 60 MG Tab.ER PO SCH (05:48)
[2017-05-03] MEDS: Sodium Chloride 0.9% 10 ML Syringe FLUSH PRN ×3 (05:58→21:27)
[2017-05-03] MEDS: methylPREDNISolone Sodium Succinate 40 MG/1 ML SDV IVPUSH SCH ×3 (05:58→21:27)
[2017-05-03] MEDS ORDERED: Insulin Aspart 100 Units/ML 3 ML Pen SUBCUT SCH (06:00)
[2017-05-03] MEDS: Insulin Aspart 100 Units/ML 3 ML Pen SUBCUT SCH ×6 (08:32→17:54)
[2017-05-03] MEDS: Bumetanide 1 MG Tab PO SCH ×3 (08:34→17:06)
[2017-05-03] MEDS: Carvedilol 6.25 MG Tab PO SCH ×2 (08:34→17:07)
[2017-05-03] MEDS: Budesonide 0.5 MG/2 ML Neb Susp NEB SCH ×2 (08:53→17:58)
[2017-05-03] MEDS: Docusate Sodium 100 MG Cap PO SCH ×2 (09:23→21:11)
[2017-05-03] MEDS: hydrALAZINE 25 MG Tab PO SCH ×2 (09:23→21:10)
[2017-05-03] MEDS: amLODIPine 5 MG Tab PO SCH (09:24)
[2017-05-03] MEDS: Allopurinol 100 MG Tab PO SCH ×2 (09:25→21:10)
[2017-05-03] MEDS: Cholecalciferol (Vitamin D3) 400 Unit Tab PO SCH ×3 (09:25→21:11)
[2017-05-03] MEDS: Oseltamivir 30 MG Cap PO SCH ×2 (09:26→21:11)
[2017-05-03] MEDS: AMILORIDE 5 MG PO SCH ×2 (09:27→21:13)
[2017-05-03] MEDS: Insulin Detemir 100 Units/ML 3 ML Pen SUBCUT SCH ×2 (09:29→21:15)
[2017-05-03] MEDS: Calcitriol 0.25 MCG Cap PO SCH (09:32)
--- NOTE | 2017-05-03 10:55 | PCM.PN ---
- General Info Date of Service: 05/03/17 Admission Dx/Problem (Free Text): cough, shortness of breath, hypoxemia Subjective Update: the patient is a 76-year-old lady with a history of COPD, congestive heart failure with diastolic dysfunction, atrial fibrillation, diabetes, morbid obesity. Patient presented with increasing shortness of breath associated with nonproductive cough for about 7 days. No fever since admission Has occasional cough. Feeling better in general. Getting ready to get up and it was a shower. She is off the oxygen now. Functional Status: Reports: Pain Controlled, Tolerating Diet - Review of Systems General: Denies: Fever Pulmonary: Reports: Shortness of Breath (Mild) Cardiovascular: Denies: Chest Pain Gastrointestinal: Denies: Abdominal Pain Genitourinary: Denies: Dysuria Neurological: Denies: Confusion - Patient Data Vitals - Most Recent: Last Vital Signs Temp 36.9 C 05/03/17 07:46 Pulse 98 05/03/17 08:54 Resp 20 05/03/17 07:46 BP 120/56 L 05/03/17 09:24 Pulse Ox 93 L 05/03/17 08:54 Weight - Most Recent: 106.141 kg I&O - Last 24 Hours: Intake & Output 05/02/17 05/03/17 05/03/17 22:59 06:59 14:59 Intake Total 500 500 Balance 500 500 Lab Results Last 24 Hours: Laboratory Results - last 24 hr 05/02/17 05/02/17 05/02/17 Range/Units 12:55 16:49 21:24 WBC (5.0-10.0) 10^3/uL RBC (4.2-5.4) 10^6/uL Hgb (12.0-16.0) g/dL Hct (37.0-47.0) % MCV (80-100) fL MCH (27.0-34.0) pg MCHC (33.0-35.0) g/dL Plt Count (150-450) 10^3/uL Neut % (Auto) (42.2-75.2) % Lymph % (Auto) (20.5-50.1) % [place] % (Auto) (2-8) % Eos % (Auto) (1.0-3.0) % Baso % (Auto) (0.0-1.0) % Sodium (135-145) mmol/L Potassium (3.6-5.0) mmol/L Chloride (101-111) mmol/L Carbon Dioxide (21.0-31.0) mmol/L Anion Gap BUN (7-18) mg/dL Creatinine (0.6-1.3) mg/dL Est Cr Clr Drug Dosing mL/min Estimated GFR (MDRD) Glucose (74-105) mg/dL POC Glucose 284 H 258 H (83-110) mg/dl Calcium (8.4-10.2) mg/dl Urine Color Yellow (YELLOW) Urine Appearance Slightly cloudy (CLEAR) Urine pH 6.5 (5.0-9.0) Ur Specific [place] 1.010 (1.005-1.030) Urine Protein Trace H (NEGATIVE) Urine Glucose (UA) Negative (NEGATIVE) Urine Ketones Negative (NEGATIVE) Urine Occult Blood Trace-intact H (NEGATIVE) Urine Nitrite Negative (NEGATIVE) Urine Bilirubin Negative (NEGATIVE) Urine Urobilinogen 0.2 (0.2-1.0) mg/dL Ur Leukocyte Esterase Negative (NEGATIVE) Urine RBC 0-5 /HPF Urine WBC 0-5 (0-5/HPF) /HPF Ur Epithelial Cells Rare /HPF Amorphous Sediment Rare (0/HPF) /HPF Urine Bacteria Rare (0-FEW/HPF) /HPF 05/03/17 05/03/17 05/03/17 Range/Units 05:45 05:45 07:42 WBC 7.9 (5.0-10.0) 10^3/uL RBC 4.17 L (4.2-5.4) 10^6/uL Hgb 13.2 (12.0-16.0) g/dL Hct 40.4 (37.0-47.0) % MCV 96.9 (80-100) fL MCH 31.7 (27.0-34.0) pg MCHC 32.7 L (33.0-35.0) g/dL Plt Count 173 (150-450) 10^3/uL Neut % (Auto) 82.7 H (42.2-75.2) % Lymph % (Auto) 8.2 L (20.5-50.1) % [place] % (Auto) 9.0 H (2-8) % Eos % (Auto) 0.0 L (1.0-3.0) % Baso % (Auto) 0.1 (0.0-1.0) % Sodium 133 L (135-145) mmol/L Potassium 5.1 H (3.6-5.0) mmol/L Chloride 99 L (101-111) mmol/L Carbon Dioxide 25.0 (21.0-31.0) mmol/L Anion Gap 14.1 BUN 29 H (7-18) mg/dL Creatinine 1.3 (0.6-1.3) mg/dL Est Cr Clr Drug Dosing 29.12 mL/min Estimated GFR (MDRD) 40 Glucose 301 H (74-105) mg/dL POC Glucose 315 H (83-110) mg/dl Calcium 9.2 (8.4-10.2) mg/dl Urine Color (YELLOW) Urine Appearance (CLEAR) Urine pH (5.0-9.0) Ur Specific [place] (1.005-1.030) Urine Protein (NEGATIVE) Urine Glucose (UA) (NEGATIVE) Urine Ketones (NEGATIVE) Urine Occult Blood (NEGATIVE) Urine Nitrite (NEGATIVE) Urine Bilirubin (NEGATIVE) Urine Urobilinogen (0.2-1.0) mg/dL Ur Leukocyte Esterase (NEGATIVE) Urine RBC /HPF Urine WBC (0-5/HPF) /HPF Ur Epithelial Cells /HPF Amorphous Sediment (0/HPF) /HPF Urine Bacteria (0-FEW/HPF) /HPF Med Orders - Current: Current Medications Acetaminophen (Tylenol) 650 mg PO Q6HR PRN PRN Reason: Pain or fever Albuterol/Ipratropium (Duoneb 3.0-0.5 Mg/3 Ml) 3 ml NEB Q6HRRT [facility] Last Admin: 05/03/17 08:53 Dose: 3 ml Allopurinol (Zyloprim) 100 mg PO BID [facility] Last Admin: 05/03/17 09:25 Dose: 100 mg Amlodipine Besylate (Norvasc) 2.5 mg PO DAILY [facility] Last Admin: 05/03/17 09:24 Dose: 2.5 mg Artificial Tears (Refresh Celluvisc) 0 each EYEBOTH Q2H PRN PRN Reason: Dry Eyes Benzocaine/Menthol (Cepacol Sore Throat) 1 lozenge MUCMEM Q6HR PRN PRN Reason: Sore Throat Budesonide (Pulmicort) 0.5 mg NEB BIDRT [facility] Last Admin: 05/03/17 08:53 Dose: 0.5 mg Bumetanide (Bumex) 2 mg PO TIDAC [facility] Last Admin: 05/03/17 08:34 Dose: 2 mg Calcitriol (Rocaltrol) 0.25 mcg PO Q48H [facility] Last Admin: 05/03/17 09:32 Dose: 0.25 mcg Carvedilol (Coreg) 6.25 mg PO BIDMEALS [facility] Last Admin: 05/03/17 08:34 Dose: 6.25 mg Cholecalciferol (Vitamin D3) 1,000 units PO TID [facility] Last Admin: 05/03/17 09:25 Dose: 1,000 units Docusate Sodium (Colace) 100 mg PO BID [facility] Last Admin: 05/03/17 09:23 Dose: 100 mg Guaifenesin/Phenylephrine HCl (Robitussin Dm) 10 ml PO Q6H PRN PRN Reason: Cough Hydralazine HCl (Apresoline) 50 mg PO BID [facility] Last Admin: 05/03/17 09:23 Dose: 50 mg Insulin Aspart (Novolog) 0 unit SUBCUT TIDAC [facility] PRN Reason: Protocol Last Admin: 05/03/17 08:33 Dose: 8 units Insulin Aspart (Novolog) 30 unit SUBCUT ACLUNCH [facility] Insulin Aspart (Novolog) 38 unit SUBCUT ACDINNER [facility] Last Admin: 05/02/17 17:44 Dose: 38 units Insulin Aspart (Novolog) 26 unit SUBCUT WITHBREAKFAST [facility] Last Admin: 05/03/17 08:32 Dose: 26 units Insulin Detemir (Levemir) 62 unit SUBCUT BEDTIME [facility] Last Admin: 05/02/17 21:34 Dose: 62 units Insulin Detemir (Levemir) 75 unit SUBCUT DAILY [facility] Last Admin: 05/03/17 09:29 Dose: 75 units Isosorbide Mononitrate (Imdur) 60 mg PO ACBRK [facility] Last Admin: 05/03/17 05:48 Dose: 60 mg Levothyroxine Sodium (Levothyroxine) 150 mcg PO ACBREAKFAST [facility] Last Admin: 05/03/17 05:48 Dose: 150 mcg Lorazepam (Ativan) 1 mg PO BEDTIME [facility] Last Admin: 05/02/17 21:39 Dose: 1 mg Methylprednisolone Sodium Succinate (Solu-Medrol) 40 mg IVPUSH Q8HR [facility] Last Admin: 05/03/17 05:58 Dose: 40 mg Metolazone (Zaroxolyn) 2.5 mg PO SuTh@0900 [facility] Oseltamivir Phosphate (Tamiflu) 30 mg PO BID [facility] Last Admin: 05/03/17 09:26 Dose: 30 mg Pantoprazole Sodium (Protonix) 40 mg PO ACBRK [facility] Last Admin: 05/03/17 05:48 Dose: 40 mg Amiloride 5 MgPt' (s Own Med) 0 each PO BID [facility] Last Admin: 05/03/17 09:27 Dose: 1 each Psyllium Husk (Metamucil Sugar Free) 1 pkt PO DAILY PRN PRN Reason: Constipation Sodium Chloride (Saline Flush) 10 ml FLUSH ASDIRECTED PRN PRN Reason: Keep Vein Open Last Admin: 05/03/17 05:58 Dose: 10 ml Sodium Chloride (Saline Flush) 10 ml FLUSH ASDIRECTED PRN PRN Reason: Keep Vein Open Tramadol HCl (Ultram) 50 mg PO Q6H PRN PRN Reason: Pain Last Admin: 05/02/17 16:05 Dose: 50 mg Warfarin Sodium (Pharmacy To Dose - Warfarin) 1 dose .XX ASDIRECTED [facility] Warfarin Sodium (Coumadin) 4 mg PO DAILY@1400 [facility] Stop: 05/03/17 14:01 Discontinued Medications Acetaminophen (Tylenol) 650 mg PO NOW ONE Stop: 05/02/17 09:27 Last Admin: 05/02/17 09:51 Dose: 650 mg Albuterol/Ipratropium (Duoneb 3.0-0.5 Mg/3 Ml) 3 ml NEB ONETIME ONE Stop: 05/02/17 09:26 Last Admin: 05/02/17 09:29 Dose: 3 ml Albuterol/Ipratropium (Duoneb 3.0-0.5 Mg/3 Ml) Confirm Administered Dose 3 ml .ROUTE .STK-MED ONE Stop: 05/02/17 09:28 Last Admin: 05/02/17 09:29 Dose: Not Given Insulin Aspart (Novolog) 26 unit SUBCUT ACBREAKFAST [facility] Potassium Chloride (Klor-Con 10) 40 meq PO TID [facility] Last Admin: 05/02/17 21:31 Dose: 40 meq Warfarin Sodium (Coumadin) 4 mg PO ONETIME ONE Stop: 05/02/17 14:01 Last Admin: 05/02/17 14:08 Dose: 4 mg - Exam General: Alert, Oriented Lungs: Clear to Auscultation, Normal Respiratory Effort. No: Rales, Wheezing Cardiovascular: Regular Rate, Regular Rhythm GI/Abdominal Exam: Normal Bowel Sounds, Soft, Non-Tender, Other (Obese) Extremities: Pedal Edema (Trace bilateral) - Problem List & Annotations (1) Hypoxia SNOMED Code(s): 171007634 Code(s): R09.02 - HYPOXEMIA Status: Acute Current Visit: Yes (2) Influenza A SNOMED Code(s): 516429650 Code(s): J10.1 - FLU DUE TO OTH IDENT INFLUENZA VIRUS W OTH RESP MANIFEST Status: Acute Current Visit: Yes (3) Bronchitis SNOMED Code(s): 21382618 Code(s): J40 - BRONCHITIS, NOT SPECIFIED ACUTE OR CHRONIC Status: Acute Current Visit: No (4) CHF (congestive heart failure) SNOMED Code(s): 99214271 Code(s): I50.9 - HEART FAILURE, UNSPECIFIED Status: Acute Current Visit: No Qualifiers: Qualified Code(s): I50.9 - Heart failure, unspecified (5) Chronic atrial fibrillation SNOMED Code(s): 841653561 Code(s): I48.2 - CHRONIC ATRIAL FIBRILLATION Status: Acute Current Visit : No - Problem List Review Problem List Initiated/Reviewed/Updated: Yes - My Orders Last 24 Hours: My Active Orders 05/02/17 12:14 Benzocaine/Cetylpyrd/Menthol [Cepacol Sore Throat] 1 lozenge MUCMEM Q6HR PRN Dextromethorphan/guaiFENesin [Robitussin DM] 10 ml PO Q6H PRN 05/03/17 08:00 Insulin Aspart [NovoLOG] 26 unit SUBCUT WITHBREAKFAST 05/03/17 14:00 Warfarin [Coumadin] 4 mg PO DAILY@1400 05/04/17 05:15 BASIC METABOLIC PANEL,BMP [CHEM] AM CBC WITH AUTO DIFF [HEME] AM - Plan Plan:: Presented with dry cough, fever, increasing shortness of breath. Noted to have hypoxemia in the emergency room with activity. Acute hypoxemic respiratory failure Well supplement oxygen as needed Acute COPD exacerbation Well treat with IV steroids, DuoNeb, pulmicort Will use systemic steroids and will taper it down Acute influenza Treat with Tamiflu, supportive care Hypertension Treat with Norvasc, hydralazine, amiloride, Bumex Diabetes Blood sugars are elevated due to the steroid use We will manage with Levemir, meal time Humalog and supplemental insulin combination Chronic diastolic congestive heart failure Well continue diuretics with amiloride, Bumex, metolazone Chronic kidney disease stage III Monitor electrolytes and renal function test with diuretics Coronary artery disease Manage with imdur, Coreg, no on asa while on coumadin Chronic Atrial fibrillation Rate control with Coreg, Anticoagulation with Coumadin Obstructive sleep apnea Continue CPAP DVT prophylaxis with full dose anticoagulation with Coumadin
[2017-05-03] MEDS ORDERED: Warfarin 2 MG Tab PO SCH (14:00)
[2017-05-03] MEDS: LORazepam 1 MG Tab PO SCH (21:10)
[2017-05-04] MEDS: Albuterol/Ipratropium 3.0-0.5 MG/3 ML Neb Soln NEB SCH ×4 (00:35→18:20)
[2017-05-04] MEDS: Pantoprazole 40 MG Tab.CR PO SCH (05:48)
[2017-05-04] MEDS: Levothyroxine 150 MCG Tab PO SCH (05:48)
[2017-05-04] MEDS: Isosorbide Mononitrate 60 MG Tab.ER PO SCH (05:48)
[2017-05-04] MEDS: methylPREDNISolone Sodium Succinate 40 MG/1 ML SDV IVPUSH SCH ×2 (05:48→20:59)
[2017-05-04] MEDS: Sodium Chloride 0.9% 10 ML Syringe FLUSH PRN ×2 (05:50→12:46)
[2017-05-04] MEDS: Budesonide 0.5 MG/2 ML Neb Susp NEB SCH ×2 (07:37→18:20)
[2017-05-04] MEDS: Bumetanide 1 MG Tab PO SCH ×2 (08:58→12:41)
[2017-05-04] MEDS: Allopurinol 100 MG Tab PO SCH ×2 (08:59→20:58)
[2017-05-04] MEDS: Docusate Sodium 100 MG Cap PO SCH ×2 (08:59→20:58)
[2017-05-04] MEDS: hydrALAZINE 25 MG Tab PO SCH ×2 (08:59→20:58)
[2017-05-04] MEDS: Oseltamivir 30 MG Cap PO SCH ×2 (08:59→20:57)
[2017-05-04] MEDS: amLODIPine 5 MG Tab PO SCH (09:00)
[2017-05-04] MEDS ORDERED: Metolazone 2.5 MG Tab PO SCH (09:00)
[2017-05-04] MEDS: Cholecalciferol (Vitamin D3) 400 Unit Tab PO SCH ×3 (09:01→21:00)
[2017-05-04] MEDS: AMILORIDE 5 MG PO SCH ×2 (09:01→21:01)
[2017-05-04] MEDS: Insulin Aspart 100 Units/ML 3 ML Pen SUBCUT SCH ×6 (09:02→17:42)
[2017-05-04] MEDS: Insulin Detemir 100 Units/ML 3 ML Pen SUBCUT SCH ×2 (09:04→21:42)
[2017-05-04] MEDS: Carvedilol 6.25 MG Tab PO SCH ×2 (09:47→17:41)
[2017-05-04] MEDS: Acetaminophen 325 MG Tab PO PRN ×2 (09:48→14:34)
--- NOTE | 2017-05-04 11:58 | PCM.PN ---
- General Info Date of Service: 05/04/17 Admission Dx/Problem (Free Text): cough, shortness of breath, hypoxemia Subjective Update: the patient is a 76-year-old lady with a history of COPD, congestive heart failure with diastolic dysfunction, atrial fibrillation, diabetes, morbid obesity. Patient presented with increasing shortness of breath associated with nonproductive cough for about 7 days. feeling still sick, has sore throat No fever since admission Has occasional cough. She is off oxygen now. - Review of Systems General: Reports: Weakness. Denies: Fever Pulmonary: Reports: Shortness of Breath, Cough. Denies: Wheezing Cardiovascular: Denies: Chest Pain, Palpitations Gastrointestinal: Denies: Abdominal Pain Neurological: Denies: Confusion - Patient Data Vitals - Most Recent: Last Vital Signs Temp 37.0 C 05/04/17 11:00 Pulse 109 H 05/04/17 11:00 Resp 20 05/04/17 11:00 BP 134/81 05/04/17 11:00 Pulse Ox 97 05/04/17 11:00 Weight - Most Recent: 107.501 kg I&O - Last 24 Hours: Intake & Output 05/03/17 05/04/17 05/04/17 21:59 06:59 14:59 Intake Total Balance Lab Results Last 24 Hours: Laboratory Results - last 24 hr 05/03/17 05/03/17 05/03/17 Range/Units 11:53 17:07 21:15 WBC (5.0-10.0) 10^3/uL RBC (4.2-5.4) 10^6/uL Hgb (12.0-16.0) g/dL Hct (37.0-47.0) % MCV (80-100) fL MCH (27.0-34.0) pg MCHC (33.0-35.0) g/dL Plt Count (150-450) 10^3/uL Neut % (Auto) (42.2-75.2) % Lymph % (Auto) (20.5-50.1) % [place] % (Auto) (2-8) % Eos % (Auto) (1.0-3.0) % Baso % (Auto) (0.0-1.0) % PT (9.0-12.0) SEC INR (0.9-1.2) Sodium (135-145) mmol/L Potassium (3.6-5.0) mmol/L Chloride (101-111) mmol/L Carbon Dioxide (21.0-31.0) mmol/L Anion Gap BUN (7-18) mg/dL Creatinine (0.6-1.3) mg/dL Est Cr Clr Drug Dosing mL/min Estimated GFR (MDRD) Glucose (74-105) mg/dL POC Glucose 379 H 286 H 362 H (83-110) mg/dl Calcium (8.4-10.2) mg/dl 05/04/17 05/04/17 05/04/17 Range/Units 06:20 06:20 07:03 WBC 14.8 H (5.0-10.0) 10^3/uL RBC 4.10 L (4.2-5.4) 10^6/uL Hgb 12.9 (12.0-16.0) g/dL Hct 39.0 (37.0-47.0) % MCV 95.1 (80-100) fL MCH 31.5 (27.0-34.0) pg MCHC 33.1 (33.0-35.0) g/dL Plt Count 174 (150-450) 10^3/uL Neut % (Auto) 83.5 H (42.2-75.2) % Lymph % (Auto) 5.8 L (20.5-50.1) % [place] % (Auto) 10.7 H (2-8) % Eos % (Auto) 0.0 L (1.0-3.0) % Baso % (Auto) 0.0 (0.0-1.0) % PT (9.0-12.0) SEC INR (0.9-1.2) Sodium 130 L (135-145) mmol/L Potassium 4.2 (3.6-5.0) mmol/L Chloride 95 L (101-111) mmol/L Carbon Dioxide 24.0 (21.0-31.0) mmol/L Anion Gap 15.2 BUN 41 H (7-18) mg/dL Creatinine 1.6 H (0.6-1.3) mg/dL Est Cr Clr Drug Dosing 23.29 mL/min Estimated GFR (MDRD) 31 Glucose 328 H (74-105) mg/dL POC Glucose 290 H (83-110) mg/dl Calcium 8.8 (8.4-10.2) mg/dl 05/04/17 05/04/17 Range/Units 07:21 11:32 WBC (5.0-10.0) 10^3/uL RBC (4.2-5.4) 10^6/uL Hgb (12.0-16.0) g/dL Hct (37.0-47.0) % MCV (80-100) fL MCH (27.0-34.0) pg MCHC (33.0-35.0) g/dL Plt Count (150-450) 10^3/uL Neut % (Auto) (42.2-75.2) % Lymph % (Auto) (20.5-50.1) % [place] % (Auto) (2-8) % Eos % (Auto) (1.0-3.0) % Baso % (Auto) (0.0-1.0) % PT 20.2 H (9.0-12.0) SEC INR 2.0 H (0.9-1.2) Sodium (135-145) mmol/L Potassium (3.6-5.0) mmol/L Chloride (101-111) mmol/L Carbon Dioxide (21.0-31.0) mmol/L Anion Gap BUN (7-18) mg/dL Creatinine (0.6-1.3) mg/dL Est Cr Clr Drug Dosing mL/min Estimated GFR (MDRD) Glucose (74-105) mg/dL POC Glucose 351 H (83-110) mg/dl Calcium (8.4-10.2) mg/dl Med Orders - Current: Current Medications Acetaminophen (Tylenol) 650 mg PO Q6HR PRN PRN Reason: Pain or fever Last Admin: 05/04/17 09:48 Dose: 650 mg Albuterol/Ipratropium (Duoneb 3.0-0.5 Mg/3 Ml) 3 ml NEB Q6HRRT [facility] Last Admin: 05/04/17 07:37 Dose: 3 ml Allopurinol (Zyloprim) 100 mg PO BID [facility] Last Admin: 05/04/17 08:59 Dose: 100 mg Amlodipine Besylate (Norvasc) 2.5 mg PO DAILY [facility] Last Admin: 05/04/17 09:00 Dose: 2.5 mg Artificial Tears (Refresh Celluvisc) 0 each EYEBOTH Q2H PRN PRN Reason: Dry Eyes Benzocaine/Menthol (Cepacol Sore Throat) 1 lozenge MUCMEM Q6HR PRN PRN Reason: Sore Throat Budesonide (Pulmicort) 0.5 mg NEB BIDRT [facility] Last Admin: 05/04/17 07:37 Dose: 0.5 mg Calcitriol (Rocaltrol) 0.25 mcg PO Q48H [facility] Last Admin: 05/03/17 09:32 Dose: 0.25 mcg Carvedilol (Coreg) 6.25 mg PO BIDMEALS [facility] Last Admin: 05/04/17 09:47 Dose: 6.25 mg Cholecalciferol (Vitamin D3) 1,000 units PO TID [facility] Last Admin: 05/04/17 09:01 Dose: 1,000 units Docusate Sodium (Colace) 100 mg PO BID [facility] Last Admin: 05/04/17 08:59 Dose: 100 mg Guaifenesin/Phenylephrine HCl (Robitussin Dm) 10 ml PO Q6H PRN PRN Reason: Cough Hydralazine HCl (Apresoline) 50 mg PO BID [facility] Last Admin: 05/04/17 08:59 Dose: 50 mg Insulin Aspart (Novolog) 0 unit SUBCUT TIDAC [facility] PRN Reason: Protocol Last Admin: 05/04/17 09:03 Dose: 6 units Insulin Aspart (Novolog) 30 unit SUBCUT ACLUNCH [facility] Last Admin: 05/03/17 12:44 Dose: 30 units Insulin Aspart (Novolog) 38 unit SUBCUT ACDINNER [facility] Last Admin: 05/03/17 17:53 Dose: 38 units Insulin Aspart (Novolog) 26 unit SUBCUT WITHBREAKFAST [facility] Last Admin: 05/04/17 09:02 Dose: 26 units Insulin Detemir (Levemir) 62 unit SUBCUT BEDTIME [facility] Last Admin: 05/03/17 21:15 Dose: 62 units Insulin Detemir (Levemir) 75 unit SUBCUT DAILY [facility] Last Admin: 05/04/17 09:04 Dose: 75 units Isosorbide Mononitrate (Imdur) 60 mg PO ACBRK [facility] Last Admin: 03/11/18 05:48 Dose: 60 mg Levothyroxine Sodium (Levothyroxine) 150 mcg PO ACBREAKFAST [facility] Last Admin: 05/04/17 05:48 Dose: 150 mcg Lorazepam (Ativan) 1 mg PO BEDTIME [facility] Last Admin: 05/03/17 21:10 Dose: 1 mg Methylprednisolone Sodium Succinate (Solu-Medrol) 40 mg IVPUSH BID [facility] Oseltamivir Phosphate (Tamiflu) 30 mg PO BID [facility] Last Admin: 05/04/17 08:59 Dose: 30 mg Pantoprazole Sodium (Protonix) 40 mg PO ACBRK [facility] Last Admin: 05/04/17 05:48 Dose: 40 mg Amiloride 5 MgPt' (s Own Med) 0 each PO BID [facility] Last Admin: 05/04/17 09:01 Dose: 1 each Psyllium Husk (Metamucil Sugar Free) 1 pkt PO DAILY PRN PRN Reason: Constipation Sodium Chloride (Saline Flush) 10 ml FLUSH ASDIRECTED PRN PRN Reason: Keep Vein Open Last Admin: 05/04/17 05:50 Dose: 10 ml Sodium Chloride (Saline Flush) 10 ml FLUSH ASDIRECTED PRN PRN Reason: Keep Vein Open Tramadol HCl (Ultram) 50 mg PO Q6H PRN PRN Reason: Pain Last Admin: 05/02/17 16:05 Dose: 50 mg Warfarin Sodium (Pharmacy To Dose - Warfarin) 1 dose .XX ASDIRECTED [facility] Warfarin Sodium (Coumadin) 4 mg PO ONETIME ONE Stop: 05/04/17 14:01 Discontinued Medications Acetaminophen (Tylenol) 650 mg PO NOW ONE Stop: 05/02/17 09:27 Last Admin: 05/02/17 09:51 Dose: 650 mg Albuterol/Ipratropium (Duoneb 3.0-0.5 Mg/3 Ml) 3 ml NEB ONETIME ONE Stop: 05/02/17 09:26 Last Admin: 05/02/17 09:29 Dose: 3 ml Albuterol/Ipratropium (Duoneb 3.0-0.5 Mg/3 Ml) Confirm Administered Dose 3 ml .ROUTE .STK-MED ONE Stop: 05/02/17 09:28 Last Admin: 05/02/17 09:29 Dose: Not Given Bumetanide (Bumex) 2 mg PO TIDAC [facility] Last Admin: 05/04/17 08:58 Dose: 2 mg Insulin Aspart (Novolog) 26 unit SUBCUT ACBREAKFAST [facility] Methylprednisolone Sodium Succinate (Solu-Medrol) 40 mg IVPUSH Q8HR [facility] Last Admin: 05/04/17 05:48 Dose: 40 mg Metolazone (Zaroxolyn) 2.5 mg PO SuTh@0900 [facility] Last Admin: 05/04/17 09:01 Dose: 2.5 mg Potassium Chloride (Klor-Con 10) 40 meq PO TID [facility] Last Admin: 05/02/17 21:31 Dose: 40 meq Warfarin Sodium (Coumadin) 4 mg PO ONETIME ONE Stop: 05/02/17 14:01 Last Admin: 05/02/17 14:08 Dose: 4 mg Warfarin Sodium (Coumadin) 4 mg PO DAILY@1400 [facility] Stop: 05/03/17 14:01 Last Admin: 05/03/17 14:44 Dose: 4 mg - Exam Quality Assessment: No: Supplemental Oxygen General: Alert, Oriented Neck: Supple Lungs: Normal Respiratory Effort, Decreased Breath Sounds. No: Wheezing Cardiovascular: Regular Rate, Regular Rhythm Extremities: Pedal Edema (Trace bilateral) Skin: Warm, Dry Neurological: No New Focal Deficit Psy/Mental Status: Alert, Normal Affect, Normal Mood - Problem List & Annotations (1) Hypoxia SNOMED Code(s): 698893544 Code(s): R09.02 - HYPOXEMIA Status: Acute Current Visit: Yes (2) Influenza A SNOMED Code(s): 460290249 Code(s): J10.1 - FLU DUE TO OTH IDENT INFLUENZA VIRUS W OTH RESP MANIFEST Status: Acute Current Visit: Yes (3) Bronchitis SNOMED Code(s): 85720041 Code(s): J40 - BRONCHITIS, NOT SPECIFIED ACUTE OR CHRONIC Status: Acute Current Visit: No (4) CHF (congestive heart failure) SNOMED Code(s): 67028268 Code(s): I50.9 - HEART FAILURE, UNSPECIFIED Status: Acute Current Visit: No Qualifiers: Qualified Code(s): I50.9 - Heart failure, unspecified (5) Chronic atrial fibrillation SNOMED Code(s): 314698214 Code(s): I48.2 - CHRONIC ATRIAL FIBRILLATION Status: Acute Current Visit : No - Problem List Review Problem List Initiated/Reviewed/Updated: Yes - My Orders Last 24 Hours: My Active Orders 05/04/17 14:00 Warfarin [Coumadin] 4 mg PO ONETIME ONE 05/04/17 21:00 methylPREDNISolone Sod Succ [Solu-MEDROL] 40 mg IVPUSH BID 05/05/17 05:11 INR,PT,PROTHROMBIN TIME [COAG] AM - Plan Plan:: Presented with dry cough, fever, increasing shortness of breath. Noted to have hypoxemia in the emergency room with activity. Acute hypoxemic respiratory failure appears resolved Well follow and supplement oxygen as needed - for now she is doing well off oxygen Acute COPD exacerbation Well treat with IV steroids,- taper to BIS cont DuoNeb, pulmicort Acute influenza Treat with Tamiflu, supportive care Hypertension Treat with Norvasc, hydralazine, amiloride, Diabetes Blood sugars are elevated due to the steroid use We will manage with Levemir, meal time Humalog and supplemental insulin combination Chronic diastolic congestive heart failure Well continue diuretics with amiloride, due to increased Cr. hold Bumex, metolazone Chronic kidney disease stage III with LYDIA hold bumex, metolazone Monitor electrolytes and renal function tests Coronary artery disease Manage with imdur, Coreg, no on asa while on coumadin Chronic Atrial fibrillation Rate control with Coreg, Anticoagulation with Coumadin Obstructive sleep apnea Continue CPAP DVT prophylaxis with full dose anticoagulation with Coumadin
[2017-05-04] MEDS ORDERED: Warfarin 2 MG Tab PO ONE (14:00)
[2017-05-04] MEDS: LORazepam 1 MG Tab PO SCH (20:57)
[2017-05-05] MEDS: Albuterol/Ipratropium 3.0-0.5 MG/3 ML Neb Soln NEB SCH ×2 (01:30→08:42)
[2017-05-05] MEDS: Pantoprazole 40 MG Tab.CR PO SCH (06:20)
[2017-05-05] MEDS: Levothyroxine 150 MCG Tab PO SCH (06:20)
[2017-05-05] MEDS: Isosorbide Mononitrate 60 MG Tab.ER PO SCH (06:21)
[2017-05-05] MEDS: Insulin Aspart 100 Units/ML 3 ML Pen SUBCUT SCH ×4 (08:13→12:04)
[2017-05-05] MEDS: Carvedilol 6.25 MG Tab PO SCH (08:19)
[2017-05-05] MEDS: Budesonide 0.5 MG/2 ML Neb Susp NEB SCH (08:42)
[2017-05-05] MEDS: Insulin Detemir 100 Units/ML 3 ML Pen SUBCUT SCH (09:22)
[2017-05-05] MEDS: Oseltamivir 30 MG Cap PO SCH (09:23)
[2017-05-05] MEDS: Docusate Sodium 100 MG Cap PO SCH (09:23)
[2017-05-05] MEDS: amLODIPine 5 MG Tab PO SCH (09:24)
[2017-05-05] MEDS: Allopurinol 100 MG Tab PO SCH (09:24)
[2017-05-05] MEDS: hydrALAZINE 25 MG Tab PO SCH (09:25)
[2017-05-05] MEDS: Cholecalciferol (Vitamin D3) 400 Unit Tab PO SCH (09:25)
[2017-05-05] MEDS: Sodium Chloride 0.9% 10 ML Syringe FLUSH PRN (09:26)
[2017-05-05] MEDS: methylPREDNISolone Sodium Succinate 40 MG/1 ML SDV IVPUSH SCH (09:26)
[2017-05-05] MEDS: AMILORIDE 5 MG PO SCH (09:27)
[2017-05-05] MEDS: Calcitriol 0.25 MCG Cap PO SCH (09:34)
[2017-05-05 11:13] VITALS: BP 128/82
--- NOTE | 2017-05-05 11:36 | PCM.DCSUM1 ---
Discharge Summary - Hospital Course Free Text/Narrative:: Presented with cough, fever, increasing shortness of breath. Noted to have hypoxemia in the emergency room with activity. Acute hypoxemic respiratory failure appears resolved she is doing well off oxygen Acute COPD exacerbation treated with IV steroids,- taper after discharge cont Nebs, pulmicort Acute influenza Treated with Tamiflu, supportive care Hypertension Treat with Norvasc, hydralazine, amiloride, Diabetes Blood sugars were elevated due to the steroid use Was manageed with Levemir, meal time Humalog and supplemental insulin combination Chronic diastolic congestive heart failure Well continue diuretics with amiloride, Bumex, metolazone Chronic kidney disease stage III with transient LYDIA resume diuretics She has been on large dose of potassium replacement - but unclear exactly what the dosage she will return to home dose of diuretics and potassium supplement Monitor electrolytes and renal function tests in a few days with primary care visit Coronary artery disease Manage with imdur, Coreg, not on asa while on coumadin Chronic Atrial fibrillation Rate control with Coreg, Anticoagulation with Coumadin Obstructive sleep apnea Continue CPAP - Discharge Data Discharge Date: 05/05/17 Discharge Disposition: Home, Self-Care 01 Condition: Stable - Discharge Diagnosis/Problem(s) (1) Hypoxia SNOMED Code(s): 324072955 ICD Code: R09.02 - HYPOXEMIA Status: Acute Current Visit: Yes (2) Influenza A SNOMED Code(s): 901777050 ICD Code: J10.1 - FLU DUE TO OTH IDENT INFLUENZA VIRUS W OTH RESP MANIFEST Status: Acute Current Visit: Yes (3) Bronchitis SNOMED Code(s): 56707119 ICD Code: J40 - BRONCHITIS, NOT SPECIFIED ACUTE OR CHRONIC Status: Acute Current Visit: No (4) CHF (congestive heart failure) SNOMED Code(s): 06766690 ICD Code: I50.9 - HEART FAILURE, UNSPECIFIED Status: Acute Current Visit : No Qualifiers: Qualified Code(s): I50.9 - Heart failure, unspecified (5) Chronic atrial fibrillation SNOMED Code(s): 251015446 ICD Code: I48.2 - CHRONIC ATRIAL FIBRILLATION Status: Acute Current Visit : No - Patient Instructions Diet: Heart Healthy Diet, Diabetic Diet Activity: As Tolerated - Discharge Plan Prescriptions/Med Rec: Oseltamivir [Tamiflu] 75 mg PO BID #3 cap predniSONE [Prednisone] See Taper PO DAILY #45 tablet Home Medications: Home Meds Isosorbide Mononitrate [Imdur] 60 mg PO DAILY 11/25/13 [History] LORazepam [Ativan] 1 mg PO BEDTIME 11/25/13 [History] Levothyroxine Sodium [Synthroid] 150 mcg PO ACBREAKFAST 11/25/13 [History] Nitroglycerin [Nitrostat] 0.4 mg SL Q5M PRN MDD 3 11/25/13 [History] Psyllium [Metamucil SF] 1 tbsp PO DAILY PRN 11/25/13 [History] amLODIPine Besylate [Amlodipine Besylate] 2.5 mg PO DAILY 11/25/13 [History] Acetaminophen 650 mg PO Q6HR PRN 03/28/15 [History] Albuterol [Proventil HFA] 2 inh INH ASDIRECTED PRN 03/28/15 [History] Potassium Chloride 40 meq PO TID 03/28/15 [History] Cholecalciferol (Vitamin D3) [Vitamin D3] 1,000 units PO TID 03/29/15 [History] Warfarin [Coumadin] 3 mg PO BEDTIME 10/30/15 [History] hydrALAZINE HCl [Hydralazine HCl] 50 mg PO BID 10/30/15 [History] Carvedilol [Coreg] 6.25 mg PO BIDMEALS 03/27/16 [History] Cyanocobalamin (Vitamin B12) [Vitamin B12] 100 mcg PO DAILY 03/27/16 [History] Hypromellose/PF [Retaine Hpmc 0.3% Eye Drops] 1 drop EYEBOTH Q4H PRN 03/27/16 [ History] Meclizine [Antivert] 25 mg PO QID PRN 03/27/16 [History] Pantoprazole Sodium [Protonix] 40 mg PO DAILY 03/27/16 [History] Docusate Sodium 100 mg PO BID 08/30/16 [History] Metolazone 2.5 mg PO .SUN.THUR 08/30/16 [History] aMILoride HCl [Amiloride HCl] 5 mg PO BID 08/30/16 [History] Insulin Aspart [NovoLOG] 30 unit SUBCUT ACLUNCH pen 01/01/17 [Rx] Insulin Aspart [NovoLOG] 38 unit SUBCUT ACDINNER pen 01/01/17 [Rx] Insulin Detemir [Levemir] 62 unit SUBCUT BEDTIME pen 01/01/17 [Rx] Insulin Detemir [Levemir] 75 unit SUBCUT DAILY pen 01/01/17 [Rx] Albuterol Sulfate 2.5 mg IH Q6H PRN 02/05/17 [History] Allopurinol [Zyloprim] 100 mg PO BID 05/02/17 [History] Bumetanide [Bumex] 2 mg PO TID 05/02/17 [History] Calcitriol 0.25 mcg PO Q48H 05/02/17 [History] Insulin Aspart [NovoLOG] 26 unit SUBCUT ACBREAKFAST 05/02/17 [History] Warfarin [Coumadin] 2.5 mg PO DAILY 05/02/17 [History] traMADol [Ultram] 50 mg PO PRN 05/02/17 [History] Oseltamivir [Tamiflu] 75 mg PO BID #3 cap 05/05/17 [Rx] predniSONE [Prednisone] See Taper PO DAILY #45 tablet 05/05/17 [Rx] Patient Handouts: Influenza, Adult, [id number], Hypoxemia Referrals: Red Yates MD [Primary Care Provider] - - General Info Date of Service: 05/05/17 Admission Dx/Problem (Free Text: cough, shortness of breath, hypoxemia Subjective Update: the patient is a 76-year-old lady with a history of COPD, congestive heart failure with diastolic dysfunction, atrial fibrillation, diabetes, morbid obesity. Patient presented with increasing shortness of breath associated with nonproductive cough for about 7 days. feeling better No fever since admission Has occasional cough, some sputum production. She is off oxygen now. - Review of Systems General: Denies: Fever Pulmonary: Reports: Shortness of Breath (chronic) Cardiovascular: Denies: Chest Pain Gastrointestinal: Denies: Abdominal Pain Neurological: Denies: Confusion - Patient Data Vitals - Most Recent: Last Vital Signs Temp 36.6 C 05/05/17 11:00 Pulse 101 H 05/05/17 11:00 Resp 20 05/05/17 11:00 BP 128/82 05/05/17 11:00 Pulse Ox 97 05/05/17 11:00 Weight - Most Recent: 108.409 kg I&O - Last 24 hours: Intake & Output 05/04/17 05/05/17 05/05/17 22:59 06:59 14:59 Intake Total 1840 300 Balance 1840 300 Lab Results - Last 24 hrs: Laboratory Results - last 24 hr 05/04/17 05/04/17 05/04/17 Range/Units 11:32 16:44 20:54 WBC (5.0-10.0) 10^3/uL RBC (4.2-5.4) 10^6/uL Hgb (12.0-16.0) g/dL Hct (37.0-47.0) % MCV (80-100) fL MCH (27.0-34.0) pg MCHC (33.0-35.0) g/dL Plt Count (150-450) 10^3/uL Neut % (Auto) (42.2-75.2) % Lymph % (Auto) (20.5-50.1) % [place] % (Auto) (2-8) % Eos % (Auto) (1.0-3.0) % Baso % (Auto) (0.0-1.0) % PT (9.0-12.0) SEC INR (0.9-1.2) Sodium (135-145) mmol/L Potassium (3.6-5.0) mmol/L Chloride (101-111) mmol/L Carbon Dioxide (21.0-31.0) mmol/L Anion Gap BUN (7-18) mg/dL Creatinine (0.6-1.3) mg/dL Est Cr Clr Drug Dosing mL/min Estimated GFR (MDRD) Glucose (74-105) mg/dL POC Glucose 351 H 251 H 292 H (83-110) mg/dl Calcium (8.4-10.2) mg/dl 05/05/17 05/05/17 05/05/17 Range/Units 06:25 06:25 06:25 WBC 12.9 H (5.0-10.0) 10^3/uL RBC 4.32 (4.2-5.4) 10^6/uL Hgb 13.7 (12.0-16.0) g/dL Hct 40.6 (37.0-47.0) % MCV 94.0 (80-100) fL MCH 31.7 (27.0-34.0) pg MCHC 33.7 (33.0-35.0) g/dL Plt Count 178 (150-450) 10^3/uL Neut % (Auto) 79.1 H (42.2-75.2) % Lymph % (Auto) 8.8 L (20.5-50.1) % [place] % (Auto) 12.0 H (2-8) % Eos % (Auto) 0.0 L (1.0-3.0) % Baso % (Auto) 0.1 (0.0-1.0) % PT 27.7 H D (9.0-12.0) SEC INR 2.7 H (0.9-1.2) Sodium 133 L (135-145) mmol/L Potassium 3.7 (3.6-5.0) mmol/L Chloride 95 L (101-111) mmol/L Carbon Dioxide 28.0 (21.0-31.0) mmol/L Anion Gap 13.7 BUN 44 H (7-18) mg/dL Creatinine 1.4 H (0.6-1.3) mg/dL Est Cr Clr Drug Dosing 26.62 mL/min Estimated GFR (MDRD) 36 Glucose 128 H (74-105) mg/dL POC Glucose (83-110) mg/dl Calcium 9.2 (8.4-10.2) mg/dl 18 /18 Range/Units 07:40 11:05 WBC (5.0-10.0) 10^3/uL RBC (4.2-5.4) 10^6/uL Hgb (12.0-16.0) g/dL Hct (37.0-47.0) % MCV (80-100) fL MCH (27.0-34.0) pg MCHC (33.0-35.0) g/dL Plt Count (150-450) 10^3/uL Neut % (Auto) (42.2-75.2) % Lymph % (Auto) (20.5-50.1) % [place] % (Auto) (2-8) % Eos % (Auto) (1.0-3.0) % Baso % (Auto) (0.0-1.0) % PT (9.0-12.0) SEC INR (0.9-1.2) Sodium (135-145) mmol/L Potassium (3.6-5.0) mmol/L Chloride (101-111) mmol/L Carbon Dioxide (21.0-31.0) mmol/L Anion Gap BUN (7-18) mg/dL Creatinine (0.6-1.3) mg/dL Est Cr Clr Drug Dosing mL/min Estimated GFR (MDRD) Glucose (74-105) mg/dL POC Glucose 109 160 H (83-110) mg/dl Calcium (8.4-10.2) mg/dl JORJE Results - Last 24 hrs: Microbiology 05/05/17 07:35 Gram Stain - Final Sputum - Expectorated Med Orders - Current: Current Medications Acetaminophen (Tylenol) 650 mg PO Q6HR PRN PRN Reason: Pain or fever Last Admin: 05/04/17 14:34 Dose: 650 mg Albuterol/Ipratropium (Duoneb 3.0-0.5 Mg/3 Ml) 3 ml NEB Q6HRRT [facility] Last Admin: 05/05/17 08:42 Dose: 3 ml Allopurinol (Zyloprim) 100 mg PO BID [facility] Last Admin: 05/05/17 09:24 Dose: 100 mg Amlodipine Besylate (Norvasc) 2.5 mg PO DAILY [facility] Last Admin: 05/05/17 09:24 Dose: 2.5 mg Artificial Tears (Refresh Celluvisc) 0 each EYEBOTH Q2H PRN PRN Reason: Dry Eyes Benzocaine/Menthol (Cepacol Sore Throat) 1 lozenge MUCMEM Q6HR PRN PRN Reason: Sore Throat Budesonide (Pulmicort) 0.5 mg NEB BIDRT [facility] Last Admin: 05/05/17 08:42 Dose: 0.5 mg Calcitriol (Rocaltrol) 0.25 mcg PO Q48H [facility] Last Admin: 05/05/17 09:34 Dose: 0.25 mcg Carvedilol (Coreg) 6.25 mg PO BIDMEALS [facility] Last Admin: 05/05/17 08:19 Dose: 6.25 mg Cholecalciferol (Vitamin D3) 1,000 units PO TID [facility] Last Admin: 05/05/17 09:25 Dose: 1,000 units Docusate Sodium (Colace) 100 mg PO BID [facility] Last Admin: 05/05/17 09:23 Dose: 100 mg Guaifenesin/Phenylephrine HCl (Robitussin Dm) 10 ml PO Q6H PRN PRN Reason: Cough Hydralazine HCl (Apresoline) 50 mg PO BID [facility] Last Admin: 05/05/17 09:25 Dose: 50 mg Insulin Aspart (Novolog) 0 unit SUBCUT TIDAC [facility] PRN Reason: Protocol Last Admin: 05/05/17 08:13 Dose: Not Given Insulin Aspart (Novolog) 30 unit SUBCUT ACLUNCH [facility] Last Admin: 05/04/17 12:45 Dose: 30 units Insulin Aspart (Novolog) 38 unit SUBCUT ACDINNER [facility] Last Admin: 05/04/17 17:42 Dose: 38 units Insulin Aspart (Novolog) 26 unit SUBCUT WITHBREAKFAST [facility] Last Admin: 05/05/17 08:18 Dose: 26 units Insulin Detemir (Levemir) 62 unit SUBCUT BEDTIME [facility] Last Admin: 05/04/17 21:42 Dose: 62 units Insulin Detemir (Levemir) 75 unit SUBCUT DAILY [facility] Last Admin: 05/05/17 09:22 Dose: 75 units Isosorbide Mononitrate (Imdur) 60 mg PO ACBRK [facility] Last Admin: 05/05/17 06:21 Dose: 60 mg Levothyroxine Sodium (Levothyroxine) 150 mcg PO ACBREAKFAST [facility] Last Admin: 05/05/17 06:20 Dose: 150 mcg Lorazepam (Ativan) 1 mg PO BEDTIME [facility] Last Admin: 05/04/17 20:57 Dose: 1 mg Methylprednisolone Sodium Succinate (Solu-Medrol) 40 mg IVPUSH BID [facility] Last Admin: 05/05/17 09:26 Dose: 40 mg Oseltamivir Phosphate (Tamiflu) 30 mg PO BID [facility] Last Admin: 05/05/17 09:23 Dose: 30 mg Pantoprazole Sodium (Protonix) 40 mg PO ACBRK [facility] Last Admin: 05/05/17 06:20 Dose: 40 mg Amiloride 5 MgPt' (s Own Med) 0 each PO BID [facility] Last Admin: 05/05/17 09:27 Dose: 1 each Psyllium Husk (Metamucil Sugar Free) 1 pkt PO DAILY PRN PRN Reason: Constipation Sodium Chloride (Saline Flush) 10 ml FLUSH ASDIRECTED PRN PRN Reason: Keep Vein Open Last Admin: 05/05/17 09:26 Dose: 10 ml Sodium Chloride (Saline Flush) 10 ml FLUSH ASDIRECTED PRN PRN Reason: Keep Vein Open Tramadol HCl (Ultram) 50 mg PO Q6H PRN PRN Reason: Pain Last Admin: 05/02/17 16:05 Dose: 50 mg Warfarin Sodium (Pharmacy To Dose - Warfarin) 1 dose .XX ASDIRECTED [facility] Warfarin Sodium (Coumadin) 3 mg PO ONETIME ONE Stop: 05/05/17 14:01 Discontinued Medications Acetaminophen (Tylenol) 650 mg PO NOW ONE Stop: 05/02/17 09:27 Last Admin: 05/02/17 09:51 Dose: 650 mg Albuterol/Ipratropium (Duoneb 3.0-0.5 Mg/3 Ml) 3 ml NEB ONETIME ONE Stop: 05/02/17 09:26 Last Admin: 05/02/17 09:29 Dose: 3 ml Albuterol/Ipratropium (Duoneb 3.0-0.5 Mg/3 Ml) Confirm Administered Dose 3 ml .ROUTE .STK-MED ONE Stop: 05/02/17 09:28 Last Admin: 05/02/17 09:29 Dose: Not Given Bumetanide (Bumex) 2 mg PO TIDAC [facility] Last Admin: 05/04/17 12:41 Dose: Not Given Insulin Aspart (Novolog) 26 unit SUBCUT ACBREAKFAST [facility] Methylprednisolone Sodium Succinate (Solu-Medrol) 40 mg IVPUSH Q8HR [facility] Last Admin: 05/04/17 05:48 Dose: 40 mg Metolazone (Zaroxolyn) 2.5 mg PO SuTh@0900 [facility] Last Admin: 05/04/17 09:01 Dose: 2.5 mg Potassium Chloride (Klor-Con 10) 40 meq PO TID [facility] Last Admin: 05/02/17 21:31 Dose: 40 meq Warfarin Sodium (Coumadin) 4 mg PO ONETIME ONE Stop: 05/02/17 14:01 Last Admin: 05/02/17 14:08 Dose: 4 mg Warfarin Sodium (Coumadin) 4 mg PO DAILY@1400 [facility] Stop: 05/03/17 14:01 Last Admin: 05/03/17 14:44 Dose: 4 mg Warfarin Sodium (Coumadin) 4 mg PO ONETIME ONE Stop: 05/04/17 14:01 Last Admin: 05/04/17 14:26 Dose: 4 mg - Exam Quality Assessment: Denies: Supplemental Oxygen General: Reports: Alert, Oriented Lungs: Reports: Normal Respiratory Effort, Decreased Breath Sounds GI/Abdominal Exam: Normal Bowel Sounds, Soft, Non-Tender Extremities: Pedal Edema (trace b/l) Skin: Reports: Warm, Dry Neurological: Reports: No New Focal Deficit *Q Meaningful Use (DIS) - VTE *Q VTE Criteria *Q: - Stroke *Q Stroke Criteria *Q: - AMI *Q AMI Criteria *Q:
== END 2017-05-05 13:10 | disposition home or self-care (01) | DRG 152 ==
LOC: DL.ED 08:28 → UNDOADMOB 11:06 → DL.MS 11:06 → OBSVTOIN 12:01 → INTOOBSV 12:01
PROVIDERS: ADMIT Internal Medicine; ATTEND Internal Medicine
DX: J11.1 Influenza due to unidentified influenza virus with other respiratory manifestations (principal); R09.02 Hypoxemia; J96.01 Acute respiratory failure with hypoxia; I13.0 Hypertensive heart and chronic kidney disease with heart failure and stage 1 through stage 4 chronic kidney disease, or unspecified chronic kidney disease; J44.1 Chronic obstructive pulmonary disease with (acute) exacerbation; N17.9 Acute kidney failure, unspecified; Z87.891 Personal history of nicotine dependence; I25.10 Atherosclerotic heart disease of native coronary artery without angina pectoris; N18.3 Chronic kidney disease, stage 3 (moderate); J45.909 Unspecified asthma, uncomplicated; I50.9 Heart failure, unspecified; G47.30 Sleep apnea, unspecified; Z95.5 Presence of coronary angioplasty implant and graft; I48.2 Chronic atrial fibrillation; E11.9 Type 2 diabetes mellitus without complications; G47.33 Obstructive sleep apnea (adult) (pediatric); E03.9 Hypothyroidism, unspecified; E66.9 Obesity, unspecified; K21.9 Gastro-esophageal reflux disease without esophagitis; K58.9 Irritable bowel syndrome, unspecified; G89.29 Other chronic pain; M54.9 Dorsalgia, unspecified; M19.90 Unspecified osteoarthritis, unspecified site; F32.9 Major depressive disorder, single episode, unspecified; E55.9 Vitamin D deficiency, unspecified; Z86.73 Personal history of transient ischemic attack (TIA), and cerebral infarction without residual deficits; Z98.2 Presence of cerebrospinal fluid drainage device; H91.93 Unspecified hearing loss, bilateral; H54.7 Unspecified visual loss; Z88.2 Allergy status to sulfonamides; Z88.7 Allergy status to serum and vaccine; Z88.8 Allergy status to other drugs, medicaments and biological substances; Z88.1 Allergy status to other antibiotic agents; Z91.041 Radiographic dye allergy status; Z79.01 Long term (current) use of anticoagulants; Z79.4 Long term (current) use of insulin; Z79.899 Other long term (current) drug therapy
CPT/HCPCS: 36415; 71045; 80053; 82962; 83605; 83880; 85025; 85610; 87040 ×2; 87081; 87430; 87804 ×2; 94640; 99285; A9270; 80048; 81001; 87070; 87205; J1815-GY; J2920; J7050

== ENCOUNTER 2017-05-19 13:28 | Observation (INO) | payer BC, OTHER ==
[2017-05-19] MEDS ORDERED: Sodium Chloride 0.9% 1,000 ML IV ONE (13:35)
--- NOTE | 2017-05-19 14:05 | EDM.PDOC ---
ED HPI GENERAL MEDICAL PROBLEM - General Chief Complaint: Respiratory Problem Stated Complaint: AMBULANCE Time Seen by Provider: 05/19/17 13:50 Source of Information: Reports: Patient, Provider History Limitations: Reports: No Limitations - History of Present Illness INITIAL COMMENTS - FREE TEXT/NARRATIVE: This 77 yo female patient was brought to the ED by [facility] due to intermittent dizziness from the [facility]. The patient's provider reports the patient has a history of CHF, diabetes, a. fib, CKD and Hypothyroid. The patient had labs done in the [facility] by Dr. Medel. Dr. Medel called to attempt to have the patient admitted (direct admit), but was advised to bring the patient to the ED for a liter of fluid. Dr. Medel expressed that the patient has a history of CHF and should be monitored after the fluid for fluid overload during the call to the ED. The patient was sent to the ED by ambulance to be seen in the ED. The patient reports she has been having intermittent dizziness since Friday. The patient reports that she has been taking her medications as directed, has been eating and drinking normally. The patient reports she does have a headache at this time and has been experiencing a headache over the past couple of days. The patient reports she is being followed by Dr. Ro also. The patient reports the last time she was given a large amount of fluid, she ended up having fluid overload and needed to be hospitalized. Onset Date: 05/16/17 Duration: Constant Location: Reports: Generalized Quality: Reports: Other Severity: Moderate Improves with: Reports: None Worsens with: Reports: None Associated Symptoms: Reports: No Other Symptoms - Related Data Allergies Allergy/AdvReac Type Severity Reaction Status Date / Time codeine Allergy Severe Rash Verified 05/02/17 11:27 Iodinated Contrast- Oral and Allergy Severe Other Verified 05/02/17 11:27 IV Dye [Iodinated Contrast Media - IV Dye] Penicillins Allergy Severe Hives Verified 05/02/17 11:27 pentazocine [From Talwin] Allergy Severe Delusions Verified 05/02/17 11:27 Sulfa (Sulfonamide Allergy Severe Hives Verified 05/02/17 11:27 Antibiotics) sulfamethoxazole Allergy Severe Hives Verified 05/02/17 11:27 [From Bactrim] trimethoprim [From Bactrim] Allergy Severe Hives Verified 05/02/17 11:27 ampicillin Allergy Intermediate Hives Verified 05/02/17 11:27 atorvastatin calcium Allergy Mild Muscle Verified 05/02/17 11:27 [From Lipitor] Aches duloxetine HCl Allergy Mild Nausea Verified 05/02/17 11:27 [From Cymbalta] indomethacin [From Indocin] Allergy Mild Headache Verified 05/02/17 11:27 indomethacin sodium Allergy Mild Headache Verified 05/02/17 11:27 [From Indocin] lactose Allergy Mild Diarrhea Verified 05/02/17 11:27 lisinopril Allergy Mild Cough Verified 05/02/17 11:27 metolazone Allergy Mild Muscle Verified 05/02/17 11:27 Aches metoprolol Allergy Mild Fatigue Verified 05/02/17 11:27 oxycodone [Oxycodone] Allergy Mild Other Verified 05/02/17 11:27 pravastatin Allergy Mild Muscle Verified 05/02/17 11:27 Aches simvastatin Allergy Mild Muscle Verified 05/02/17 11:27 Aches spironolactone Allergy Mild Headache Verified 05/02/17 11:27 tuberculin, purified protein Allergy Mild Rash Verified 05/02/17 11:27 deriva [tuberculin,purif.prot.deriv.] clonazepam [From Klonopin] Allergy Other Verified 05/02/17 11:27 hydrochlorothiazide Allergy Lethargy Verified 05/02/17 11:27 tetanus toxoid, adsorbed Allergy Other Verified 05/02/17 11:27 zoster vaccine live Allergy Cannot Verified 05/02/17 11:55 Remember flannel Allergy Burning Uncoded 05/02/17 11:55 Home Meds: Home Meds Isosorbide Mononitrate [Imdur] 60 mg PO DAILY 11/25/13 [History] LORazepam [Ativan] 1 mg PO BEDTIME 11/25/13 [History] Levothyroxine Sodium [Synthroid] 150 mcg PO ACBREAKFAST 11/25/13 [History] Nitroglycerin [Nitrostat] 0.4 mg SL Q5M PRN MDD 3 11/25/13 [History] Psyllium [Metamucil SF] 1 tbsp PO DAILY PRN 11/25/13 [History] amLODIPine Besylate [Amlodipine Besylate] 2.5 mg PO DAILY 11/25/13 [History] Acetaminophen 650 mg PO Q6HR PRN 03/28/15 [History] Albuterol [Proventil HFA] 2 inh INH ASDIRECTED PRN 03/28/15 [History] Potassium Chloride 40 meq PO TID 03/28/15 [History] Cholecalciferol (Vitamin D3) [Vitamin D3] 1,000 units PO TID 03/29/15 [History] Warfarin [Coumadin] 3 mg PO BEDTIME 10/30/15 [History] hydrALAZINE HCl [Hydralazine HCl] 50 mg PO BID 10/30/15 [History] Carvedilol [Coreg] 6.25 mg PO BIDMEALS 03/27/16 [History] Cyanocobalamin (Vitamin B12) [Vitamin B12] 100 mcg PO DAILY 03/27/16 [History] Hypromellose/PF [Retaine Hpmc 0.3% Eye Drops] 1 drop EYEBOTH Q4H PRN 03/27/16 [ History] Meclizine [Antivert] 25 mg PO QID PRN 03/27/16 [History] Pantoprazole Sodium [Protonix] 40 mg PO DAILY 03/27/16 [History] Docusate Sodium 100 mg PO BID 08/30/16 [History] Metolazone 2.5 mg PO .SUN.THUR 08/30/16 [History] aMILoride HCl [Amiloride HCl] 5 mg PO BID 08/30/16 [History] Insulin Aspart [NovoLOG] 30 unit SUBCUT ACLUNCH pen 01/01/17 [Rx] Insulin Aspart [NovoLOG] 38 unit SUBCUT ACDINNER pen 01/01/17 [Rx] Insulin Detemir [Levemir] 62 unit SUBCUT BEDTIME pen 01/01/17 [Rx] Insulin Detemir [Levemir] 75 unit SUBCUT DAILY pen 01/01/17 [Rx] Albuterol Sulfate 2.5 mg IH Q6H PRN 02/05/17 [History] Allopurinol [Zyloprim] 100 mg PO BID 05/02/17 [History] Bumetanide [Bumex] 2 mg PO TID 05/02/17 [History] Calcitriol 0.25 mcg PO Q48H 05/02/17 [History] Insulin Aspart [NovoLOG] 26 unit SUBCUT ACBREAKFAST 05/02/17 [History] Warfarin [Coumadin] 2.5 mg PO DAILY 05/02/17 [History] traMADol [Ultram] 50 mg PO PRN 05/02/17 [History] Oseltamivir [Tamiflu] 75 mg PO BID #3 cap 05/05/17 [Rx] predniSONE [Prednisone] See Taper PO DAILY #45 tablet 05/05/17 [Rx] Past Medical History HEENT History: Reports: Cataract, Impaired Vision, Other (See Below) Other HEENT History: HEARING LOSS TOTAL-RIGHT PARTIAL-LEFT, WEARS BILAT HEARING AIDES Cardiovascular History: Reports: Afib, CAD, Heart Failure, Hypertension, [place], Stents, Other (See Below) Other Cardiovascular History: CAROTID ARTERY DISEASE. HEART FAILURE WITH PRESERVED EJECTION FRACTION. HYPERTENSIVE HEART DISEASE. TIA Respiratory History: Reports: Asthma, Bronchitis, Recurrent, Sleep Apnea Gastrointestinal History: Reports: Chronic Constipation, GERD, Hemorrhoids, Irritable Bowel Syndrome Genitourinary History: Reports: Chronic Renal Insuffiency, Renal Calculus, Other (See Below) Other Genitourinary History: CKD STAGE III MEDICAL GENETICIST History: Reports: Other (See Below) Other OB/BYN History: UTERUS WAS ADHESED TO HER SPINE Musculoskeletal History: Reports: Back Pain, Chronic, Fracture, Osteoarthritis Other Musculoskeletal History: FRACTURED ARM WHEN SHE WAS YOUNG Neurological History: Reports: TIA, Other (See Below) Other Neuro History: NORMAL PRESSURE HYDROCEPHALUS. SUBDURAL HEMATOMA. lorazepam controls headaches from shunt Psychiatric History: Reports: Depression Endocrine/Metabolic History: Reports: Diabetes, Type II, Hypothyroidism, Obesity /BMI 30+, Osteoporosis, Vitamin D Deficiency Hematologic History: Reports: Blood Transfusion(s) Immunologic History: Reports: None Oncologic (Cancer) History: Reports: Malignant Melanoma Dermatologic History: Reports: None - Infectious Disease History Infectious Disease History: Reports: Chicken Pox, Measles, Mumps, Shingles - Past Surgical History Head Surgeries/Procedures: Reports: Shunt HEENT Surgical History: Reports: Adenoidectomy, Cataract Surgery, Tonsillectomy Cardiovascular Surgical History: Reports: Carotid Endarterectomy, Coronary Artery Stent Respiratory Surgical History: Reports: None GI Surgical History: Reports: Appendectomy, Colonoscopy, EGD, Polypectomy, Other (See Below) Other GI Surgeries/Procedures: large colon mostly resected - annotated redundant bowel Female Surgical History: Reports: Breast Biopsy, Cystectomy, Hysterectomy, Salpingo-Oophorectomy, Other (See Below) Other Female Surgeries/Procedures: breast cyst Endocrine Surgical History: Reports: None Neurological Surgical History: Reports: Other (See Below) Other Neurological Surgeries/Procedures: spinal tap and TUB CHUCKER shunt (2008) Musculoskeletal Surgical History: Reports: None Oncologic Surgical History: Reports: Biopsy of Breast Dermatological Surgical History: Reports: None Social & Family History - Family History Family Medical History: Noncontributory - Tobacco Use Smoking Status *Q: Never Smoker Years of Tobacco use: 10 Used Tobacco, but Quit: Yes Month/Year Tobacco Last Used: 06/11/1982 Second Hand Smoke Exposure: No - Caffeine Use Caffeine Use: Reports: None - Alcohol Use Days Per Week of Alcohol Use: 0 - Recreational Drug Use Recreational Drug Use: No Drug Use in Last 12 Months: No - Living Situation & Occupation Living situation: Reports: with Family Occupation: Retired ED ROS GENERAL - Review of Systems Review Of Systems: ROS reveals no pertinent complaints other than HPI. ED EXAM, GENERAL - Physical Exam Exam: See Below Exam Limited By: No Limitations General Appearance: Alert, WD/WN, Moderate Distress, Obese Eye Exam: Bilateral Eye: EOMI, Normal Inspection, PERRL Ears: Normal External Exam, Normal Canal, Hearing Grossly Normal, Normal TMs Nose: Normal Inspection, Normal Mucosa, No Blood Throat/Mouth: Normal Inspection, Normal Lips, Normal Teeth, Normal Gums, Normal Oropharynx, Normal Voice, No Airway Compromise Head: Atraumatic, Normocephalic Neck: Normal Inspection, Supple, Non-Tender, Full Range of Motion Respiratory/Chest: No Respiratory Distress, Lungs Clear, Normal Breath Sounds, No Accessory Muscle Use, Chest Non-Tender Cardiovascular: Normal Peripheral Pulses, Regular Rate, Rhythm, No Edema, No Gallop, No JVD, No Murmur, No Rub GI/Abdominal: Normal Bowel Sounds, Soft, Non-Tender, No Organomegaly, No Distention, No Abnormal Bruit, No Mass (Female) Exam: Deferred Rectal (Female) Exam: Deferred Back Exam: Normal Inspection, Full Range of Motion, NT Extremities: Normal Inspection, Normal Range of Motion, Non-Tender, Normal Capillary Refill, Pedal Edema (2+ with pain on palpation) Neurological: Alert, Oriented, CN II-XII Intact, Normal Cognition, Normal Gait, Normal Reflexes, No Motor/Sensory Deficits Psychiatric: Normal Affect, Normal Mood Skin Exam: Warm, Dry, Intact, Normal Color, No Rash Lymphatic: No Adenopathy Course - Vital Signs Last Recorded V/S: Last Vital Signs Temp 36.6 C 05/19/17 14:32 Pulse 90 05/19/17 14:32 Resp 20 05/19/17 14:32 BP 106/46 L 05/19/17 14:32 Pulse Ox 96 05/19/17 14:32 - Orders/Labs/Meds Orders: Medication Orders Acetaminophen (Tylenol) 650 mg PO Q6HR PRN PRN Reason: Pain Albuterol (Proventil Hfa) gm INH ASDIRECTED PRN PRN Reason: Dyspnea Albuterol (Proventil Neb Soln) 2.5 mg NEB Q6H PRN PRN Reason: Shortness of Breath Allopurinol (Zyloprim) 100 mg PO BID [facility] Calcitriol (Rocaltrol) 0.25 mcg PO Q48H [facility] Carvedilol (Coreg) 6.25 mg PO BIDMEALS [facility] Docusate Sodium (Colace) 100 mg PO BID [facility] Heparin Sodium (Porcine) (Heparin Sodium) 5,000 units SUBCUT Q8HR [facility] Sodium Chloride (Normal Saline) 1,000 mls @ 125 mls/hr IV ASDIRECTED [facility] Insulin Aspart (Novolog) 26 unit SUBCUT ACBREAKFAST [facility] Insulin Aspart (Novolog) 30 unit SUBCUT ACLUNCH [facility] Insulin Aspart (Novolog) 38 unit SUBCUT ACDINNER [facility] Insulin Detemir (Levemir) 62 unit SUBCUT BEDTIME [facility] Isosorbide Mononitrate (Imdur) 60 mg PO DAILY [facility] Levothyroxine Sodium (Levothyroxine) 150 mcg PO ACBREAKFAST [facility] Lorazepam (Ativan) 1 mg PO BEDTIME [facility] Nitroglycerin (Nitrostat) 0.4 mg SL Q5M PRN PRN Reason: Chest Pain Non-Formulary Medication (Amlodipine Besylate [Amlodipine Besylate]) 2.5 mg PO DAILY [facility] Non-Formulary Medication (Cholecalciferol (Vitamin D3) [Vitamin D3]) 1,000 units PO TID [facility] Non-Formulary Medication (Cyanocobalamin (Vitamin B12) [Vitamin B12]) 100 mcg PO DAILY [facility] Non-Formulary Medication (Hypromellose/Pf [Retaine Hpmc 0.3% Eye Drops]) 1 drop EYEBOTH Q4H PRN PRN Reason: Dry Eyes Non-Formulary Medication (Meclizine [Antivert]) 25 mg PO QID PRN PRN Reason: vertigo Non-Formulary Medication (Potassium Chloride [Potassium Chloride]) 40 meq PO TID [facility] Non-Formulary Medication (Psyllium [Metamucil Sf]) 1 tbsp PO DAILY PRN PRN Reason: Constipation Non-Formulary Medication (Warfarin) 3 mg PO BEDTIME [facility] Ondansetron HCl (Zofran) 4 mg IVPUSH Q6H PRN PRN Reason: Nausea/Vomiting Pantoprazole Sodium (Protonix) 40 mg PO DAILY [facility] Prednisone (Prednisone) 5 mg PO DAILY [facility] Tramadol HCl (Ultram) 50 mg PO TID PRN PRN Reason: Pain Warfarin Sodium (Coumadin) 2.5 mg PO DAILY [facility] Meds: Medications Generic Name Dose Route Start Last Admin Trade Name Freq PRN Reason Stop Dose Admin Acetaminophen 650 mg 05/19/17 14:55 Tylenol PO Q6HR PRN Pain Albuterol gm 05/19/17 14:55 Proventil Hfa INH ASDIRECTED PRN Dyspnea Albuterol 2.5 mg 05/19/17 14:55 Proventil Neb Soln NEB Q6H PRN Shortness of Breath Allopurinol 100 mg 05/19/17 21:00 Zyloprim PO BID [facility] Calcitriol 0.25 mcg 05/19/17 15:00 Rocaltrol PO Q48H [facility] Carvedilol 6.25 mg 05/19/17 18:00 Coreg PO BIDMEALS [facility] Docusate Sodium 100 mg 05/19/17 21:00 Colace PO BID [facility] Heparin Sodium (Porcine) 5,000 units 05/19/17 22:00 Heparin Sodium SUBCUT Q8HR [facility] Sodium Chloride 1,000 mls @ 125 mls/hr 05/19/17 15:00 Normal Saline IV ASDIRECTED [facility] Insulin Aspart 26 unit 05/20/17 06:00 Novolog SUBCUT ACBREAKFAST [facility] Insulin Aspart 30 unit 05/20/17 11:00 Novolog SUBCUT ACLUNCH [facility] Insulin Aspart 38 unit 05/19/17 17:00 Novolog SUBCUT ACDINNER [facility] Insulin Detemir 62 unit 05/19/17 21:00 Levemir SUBCUT BEDTIME [facility] Isosorbide Mononitrate 60 mg 05/20/17 09:00 Imdur PO DAILY [facility] Levothyroxine Sodium 150 mcg 05/20/17 06:00 Levothyroxine PO ACBREAKFAST [facility] Lorazepam 1 mg 05/19/17 21:00 Ativan PO BEDTIME [facility] Nitroglycerin 0.4 mg 05/19/17 14:55 Nitrostat SL Q5M PRN Chest Pain Non-Formulary Medication 2.5 mg 05/20/17 09:00 Amlodipine Besylate [Amlodipine Besylate] PO DAILY [facility] Non-Formulary Medication 1,000 units 05/19/17 21:00 Cholecalciferol (Vitamin D3) [Vitamin D3] PO TID [facility] Non-Formulary Medication 100 mcg 05/20/17 09:00 Cyanocobalamin (Vitamin B12) [Vitamin B12] PO DAILY [facility] Non-Formulary Medication 1 drop 05/19/17 14:55 Hypromellose/Pf [Retaine Hpmc 0.3% Eye Drops] EYEBOTH Q4H PRN Dry Eyes Non-Formulary Medication 25 mg 05/19/17 14:55 Meclizine [Antivert] PO QID PRN vertigo Non-Formulary Medication 40 meq 05/19/17 21:00 Potassium Chloride [Potassium Chloride] PO TID [facility] Non-Formulary Medication 1 tbsp 05/19/17 14:55 Psyllium [Metamucil Sf] PO DAILY PRN Constipation Non-Formulary Medication 3 mg 05/19/17 21:00 Warfarin PO BEDTIME [facility] Ondansetron HCl 4 mg 05/19/17 14:49 Zofran IVPUSH Q6H PRN Nausea/Vomiting Pantoprazole Sodium 40 mg 05/20/17 09:00 Protonix PO DAILY [facility] Prednisone 5 mg 05/20/17 09:00 Prednisone PO DAILY [facility] Tramadol HCl 50 mg 05/19/17 14:55 Ultram PO TID PRN Pain Warfarin Sodium 2.5 mg 05/20/17 09:00 Coumadin PO DAILY [facility] Discontinued Medications Generic Name Dose Route Start Last Admin Trade Name Freq PRN Reason Stop Dose Admin Sodium Chloride 1,000 mls @ 999 mls/hr 05/19/17 13:35 05/19/17 13:54 Normal Saline IV 05/19/17 14:35 999 mls/hr .BOLUS ONE Administration - Re-Assessments/Exams Free Text/Narrative Re-Assessment/Exam: 05/19/17 14:[address] Neri resulted in the patient being admitted for observation to the hospital. Departure - Departure Time of Disposition: 15:07 Disposition: Admitted As Inpatient 66 Clinical Impression: Dehydration CHF (congestive heart failure) Qualifiers: Qualified Code(s): I50.9 - Heart failure, unspecified - Discharge Information
[2017-05-19] MEDS ORDERED: Ondansetron 4 MG/2 ML SDV IVPUSH PRN (14:49)
[2017-05-19] MEDS ORDERED: Carboxymethylcellulose Sodium 1% Ophth Gel 0.4 ML UD EYEBOTH PRN (14:55)
[2017-05-19] MEDS ORDERED: Psyllium Husk Powder Sugar Free 5.85 GM Packet PO PRN (14:55)
[2017-05-19] MEDS ORDERED: Albuterol 0.083% 2.5 MG/3 ML Neb Soln NEB PRN (14:55)
[2017-05-19] MEDS ORDERED: traMADol 50 MG Tab PO PRN (14:55)
[2017-05-19] MEDS ORDERED: Albuterol 6.7 GM Inhaler INH PRN (14:55)
[2017-05-19] MEDS ORDERED: Meclizine 12.5 MG Tab PO PRN (14:55)
[2017-05-19] MEDS ORDERED: Nitroglycerin 0.4 MG Tab.SL SL PRN (14:55)
[2017-05-19] MEDS ORDERED: Sodium Chloride 0.9% 1,000 ML IV SCH (15:00)
--- NOTE | 2017-05-19 15:15 | PCM.HP ---
H&P History of Present Illness - General Date of Service: 05/19/17 Admit Problem/Dx: Admission Diagnosis/Problem Admission Diagnosis/Problem Dizziness and giddiness Source of Information: Patient History Limitations: Reports: No Limitations - History of Present Illness Initial Comments - Free Text/Narative: The patient is a 77-year-old female with medical history of diabetes mellitus, hypertension, coronary artery disease, atrial fibrillation, chronic kidney disease, hypothyroidism. The patient presented to [facility] and was evaluated by Dr. Medel. The patient complained of feeling dizzy which has been going on since 3 days. The dizziness comes on when she stands up and better when she lays down. She had been on aggressive diuresis with amiloride, Bumex, and metolazone. Dr. Medel called Dr. Sunshine(production supervisor off shift) who suggested discontinuation of diuretics and sending the patient home with instructions to drink more fluids. I got a call from Dr. Medel requesting that the patient be sent to the hospital for admission. Based on information provided I recommended that intravenous fluid 1 L will be enough to take care of the dizziness prior to discharge. Since he was unable to give intravenous fluid in the clinic he indicated that he would send the patient to the ER for the IV fluid administration. The patient denies fever chills and rigors.Denies chest pain.Denies abdominal pain.No dysuria no frequency or micturition. Onset of Symptoms: Reports: Gradual Severity: Moderate - Related Data Allergies/Adverse Reactions: Allergies Allergy/AdvReac Type Severity Reaction Status Date / Time codeine Allergy Severe Rash Verified 05/02/17 11:27 Iodinated Contrast- Oral and Allergy Severe Other Verified 05/02/17 11:27 IV Dye [Iodinated Contrast Media - IV Dye] Penicillins Allergy Severe Hives Verified 05/02/17 11:27 pentazocine [From Talwin] Allergy Severe Delusions Verified 05/02/17 11:27 Sulfa (Sulfonamide Allergy Severe Hives Verified 05/02/17 11:27 Antibiotics) sulfamethoxazole Allergy Severe Hives Verified 05/02/17 11:27 [From Bactrim] trimethoprim [From Bactrim] Allergy Severe Hives Verified 05/02/17 11:27 ampicillin Allergy Intermediate Hives Verified 05/02/17 11:27 atorvastatin calcium Allergy Mild Muscle Verified 05/02/17 11:27 [From Lipitor] Aches duloxetine HCl Allergy Mild Nausea Verified 05/02/17 11:27 [From Cymbalta] indomethacin [From Indocin] Allergy Mild Headache Verified 05/02/17 11:27 indomethacin sodium Allergy Mild Headache Verified 05/02/17 11:27 [From Indocin] lactose Allergy Mild Diarrhea Verified 05/02/17 11:27 lisinopril Allergy Mild Cough Verified 05/02/17 11:27 metolazone Allergy Mild Muscle Verified 05/02/17 11:27 Aches metoprolol Allergy Mild Fatigue Verified 05/02/17 11:27 oxycodone [Oxycodone] Allergy Mild Other Verified 05/02/17 11:27 pravastatin Allergy Mild Muscle Verified 05/02/17 11:27 Aches simvastatin Allergy Mild Muscle Verified 05/02/17 11:27 Aches spironolactone Allergy Mild Headache Verified 05/02/17 11:27 tuberculin, purified protein Allergy Mild Rash Verified 05/02/17 11:27 deriva [tuberculin,purif.prot.deriv.] clonazepam [From Klonopin] Allergy Other Verified 05/02/17 11:27 hydrochlorothiazide Allergy Lethargy Verified 05/02/17 11:27 tetanus toxoid, adsorbed Allergy Other Verified 05/02/17 11:27 zoster vaccine live Allergy Cannot Verified 05/02/17 11:55 Remember flannel Allergy Burning Uncoded 05/02/17 11:55 Home Medications: Home Meds Isosorbide Mononitrate [Imdur] 60 mg PO DAILY 11/25/13 [History] LORazepam [Ativan] 1 mg PO BEDTIME 11/25/13 [History] Levothyroxine Sodium [Synthroid] 150 mcg PO ACBREAKFAST 11/25/13 [History] Nitroglycerin [Nitrostat] 0.4 mg SL Q5M PRN MDD 3 11/25/13 [History] Psyllium [Metamucil SF] 1 tbsp PO DAILY PRN 11/25/13 [History] amLODIPine Besylate [Amlodipine Besylate] 2.5 mg PO DAILY 11/25/13 [History] Acetaminophen 650 mg PO Q6HR PRN 03/28/15 [History] Albuterol [Proventil HFA] 2 inh INH ASDIRECTED PRN 03/28/15 [History] Potassium Chloride 40 meq PO TID 03/28/15 [History] Cholecalciferol (Vitamin D3) [Vitamin D3] 1,000 units PO TID 03/29/15 [History] Warfarin [Coumadin] 3 mg PO BEDTIME 10/30/15 [History] hydrALAZINE HCl [Hydralazine HCl] 50 mg PO BID 10/30/15 [History] Carvedilol [Coreg] 6.25 mg PO BIDMEALS 03/27/16 [History] Cyanocobalamin (Vitamin B12) [Vitamin B12] 100 mcg PO DAILY 03/27/16 [History] Hypromellose/PF [Retaine Hpmc 0.3% Eye Drops] 1 drop EYEBOTH Q4H PRN 03/27/16 [ History] Meclizine [Antivert] 25 mg PO QID PRN 03/27/16 [History] Pantoprazole Sodium [Protonix] 40 mg PO DAILY 03/27/16 [History] Docusate Sodium 100 mg PO BID 08/30/16 [History] Metolazone 2.5 mg PO .SUN.THUR 08/30/16 [History] aMILoride HCl [Amiloride HCl] 5 mg PO BID 08/30/16 [History] Insulin Aspart [NovoLOG] 30 unit SUBCUT ACLUNCH pen 01/01/17 [Rx] Insulin Aspart [NovoLOG] 38 unit SUBCUT ACDINNER pen 01/01/17 [Rx] Insulin Detemir [Levemir] 62 unit SUBCUT BEDTIME pen 01/01/17 [Rx] Insulin Detemir [Levemir] 75 unit SUBCUT DAILY pen 01/01/17 [Rx] Albuterol Sulfate 2.5 mg IH Q6H PRN 02/05/17 [History] Allopurinol [Zyloprim] 100 mg PO BID 05/02/17 [History] Bumetanide [Bumex] 2 mg PO TID 05/02/17 [History] Calcitriol 0.25 mcg PO Q48H 05/02/17 [History] Insulin Aspart [NovoLOG] 26 unit SUBCUT ACBREAKFAST 05/02/17 [History] Warfarin [Coumadin] 2.5 mg PO DAILY 05/02/17 [History] traMADol [Ultram] 50 mg PO PRN 05/02/17 [History] Oseltamivir [Tamiflu] 75 mg PO BID #3 cap 05/05/17 [Rx] predniSONE [Prednisone] See Taper PO DAILY #45 tablet 05/05/17 [Rx] Past Medical History HEENT History: Reports: Cataract, Impaired Vision, Other (See Below) Other HEENT History: HEARING LOSS TOTAL-RIGHT PARTIAL-LEFT, WEARS BILAT HEARING AIDES Cardiovascular History: Reports: Afib, CAD, Heart Failure, Hypertension, ID, Stents, Other (See Below) Other Cardiovascular History: CAROTID ARTERY DISEASE. HEART FAILURE WITH PRESERVED EJECTION FRACTION. HYPERTENSIVE HEART DISEASE. 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 SUBDURAL HEMATOMA. lorazepam controls headaches from shunt Psychiatric History: Reports: Depression Endocrine/Metabolic History: Reports: Diabetes, Type II, Hypothyroidism, Obesity /BMI 30+, Osteoporosis, Vitamin D Deficiency Hematologic History: Reports: Blood Transfusion(s) Immunologic History: Reports: None Oncologic (Cancer) History: Reports: Malignant Melanoma Dermatologic History: Reports: None - Infectious Disease History Infectious Disease History: Reports: Chicken Pox, Measles, Mumps, Shingles - Past Surgical History Head Surgeries/Procedures: Reports: Shunt HEENT Surgical History: Reports: Adenoidectomy, Cataract Surgery, Tonsillectomy Cardiovascular Surgical History: Reports: Carotid Endarterectomy, Coronary Artery Stent Respiratory Surgical History: Reports: None GI Surgical History: Reports: Appendectomy, Colonoscopy, EGD, Polypectomy, Other (See Below) Other GI Surgeries/Procedures: large colon mostly resected - annotated redundant bowel Female Surgical History: Reports: Breast Biopsy, Cystectomy, Hysterectomy, Salpingo-Oophorectomy, Other (See Below) Other Female Surgeries/Procedures: breast cyst Endocrine Surgical History: Reports: None Neurological Surgical History: Reports: Other (See Below) Other Neurological Surgeries/Procedures: 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) Musculoskeletal Surgical History: Reports: None Oncologic Surgical History: Reports: Biopsy of Breast Dermatological Surgical History: Reports: None Social & Family History - Family History Family Medical History: Noncontributory - Tobacco Use Smoking Status *Q: Never Smoker Years of Tobacco use: 10 Used Tobacco, but Quit: Yes Month/Year Tobacco Last Used: 06/11/1982 Second Hand Smoke Exposure: No - Caffeine Use Caffeine Use: Reports: None - Alcohol Use Days Per Week of Alcohol Use: 0 - Recreational Drug Use Recreational Drug Use: No Drug Use in Last 12 Months: No - Living Situation & Occupation Living situation: Reports: with Family Occupation: Retired H&P Review of Systems - Review of Systems: Review Of Systems: See Below General: Reports: Weakness HEENT: Reports: No Symptoms Pulmonary: Reports: No Symptoms Cardiovascular: Reports: Lightheadedness Gastrointestinal: Reports: No Symptoms Musculoskeletal: Reports: No Symptoms Skin: Reports: No Symptoms Psychiatric: Reports: No Symptoms Neurological: Reports: Dizziness Hematologic/Lymphatic: Reports: No Symptoms Exam - Exam Exam: See Below - Vital Signs Vital Signs: Last Vital Signs Temp 36.6 C 05/19/17 14:32 Pulse 90 05/19/17 14:32 Resp 20 05/19/17 14:32 BP 106/46 L 05/19/17 14:32 Pulse Ox 96 05/19/17 14:32 - Exam General: Alert, Oriented, Cooperative HEENT: Conjunctiva Clear Neck: Supple Lungs: Clear to Auscultation, Normal Respiratory Effort Cardiovascular: Regular Rate, Regular Rhythm GI/Abdominal Exam: Normal Bowel Sounds, Soft, Non-Tender, No Organomegaly, No Distention, No Abnormal Bruit, No Mass, Pelvis Stable (Female) Exam: Normal External Exam, Normal Speculum Exam, Normal Bimanual Exam Rectal (Female) Exam: Normal Exam, Normal Rectal Tone Back Exam: Normal Inspection, Full Range of Motion, NT Extremities: Normal Inspection, Normal Range of Motion, Non-Tender, No Pedal Edema, Normal Capillary Refill Skin: Warm, Dry, Intact Neuro Extensive - Mental Status: Alert, Oriented x3, Normal Mood/Affect, Normal Cognition Psychiatric: Alert, Normal Affect, Normal Mood *Q Meaningful Use (ADM) - VTE *Q VTE Criteria *Q: - Stroke *Q Stroke Criteria *Q: - AMI *Q AMI Criteria *Q: Problem List Initiated/Reviewed/Updated: Yes Orders Last 24hrs: Active Orders 24 hr Category Date Time Status Blood Glucose Check, Bedside [RC] QIDACANDBED Care 05/19/17 15:02 Active Acetaminophen [Tylenol] Med 05/19/17 14:55 Ordered 650 mg PO Q6HR PRN Albuterol [Proventil HFA] Med 05/19/17 14:55 Ordered DOSE gm INH ASDIRECTED PRN Albuterol [Proventil Neb Soln] Med 05/19/17 14:55 Ordered 2.5 mg NEB Q6H PRN Allopurinol [Zyloprim] Med 05/19/17 21:00 Ordered 100 mg PO BID Calcitriol [Rocaltrol] Med 05/19/17 15:00 Ordered 0.25 mcg PO Q48H Carvedilol [Coreg] Med 05/19/17 18:00 Ordered 6.25 mg PO BIDMEALS Cholecalciferol (Vitamin D3) [Vitamin D3] Med 05/19/17 21:00 Ordered 1,000 units PO TID Cyanocobalamin (Vitamin B12) [Vitamin B12] Med 05/20/17 09:00 Ordered 100 mcg PO DAILY Docusate Sodium [Colace] Med 05/19/17 21:00 Ordered 100 mg PO BID Hypromellose/PF [Retaine Hpmc 0.3% Eye Drops] Med 05/19/17 14:55 Ordered 1 drop EYEBOTH Q4H PRN Insulin Aspart [NovoLOG] Med 05/20/17 06:00 Ordered 26 unit SUBCUT ACBREAKFAST Insulin Aspart [NovoLOG] Med 05/20/17 11:00 Ordered 30 unit SUBCUT ACLUNCH Insulin Aspart [NovoLOG] Med 05/19/17 17:00 Ordered 38 unit SUBCUT ACDINNER Insulin Detemir [Levemir] Med 05/19/17 21:00 Ordered 62 unit SUBCUT BEDTIME Isosorbide Mononitrate [Imdur] Med 05/20/17 09:00 Ordered 60 mg PO DAILY LORazepam [Ativan] Med 05/19/17 21:00 Ordered 1 mg PO BEDTIME Levothyroxine Med 05/20/17 06:00 Ordered 150 mcg PO ACBREAKFAST Meclizine [Antivert] Med 05/19/17 14:55 Ordered 25 mg PO QID PRN Nitroglycerin [Nitrostat] Med 05/19/17 14:55 Ordered 0.4 mg SL Q5M PRN Pantoprazole [ProTONIX] Med 05/20/17 09:00 Ordered 40 mg PO DAILY Potassium Chloride [Potassium Chloride] Med 05/19/17 21:00 Ordered 40 meq PO TID Psyllium [Metamucil SF] Med 05/19/17 14:55 Ordered 1 tbsp PO DAILY PRN Warfarin Med 05/19/17 21:00 Ordered 3 mg PO BEDTIME Warfarin [Coumadin] Med 05/20/17 09:00 Ordered 2.5 mg PO DAILY amLODIPine Besylate [Amlodipine Besylate] Med 05/20/17 09:00 Ordered 2.5 mg PO DAILY predniSONE Med 05/20/17 09:00 Ordered 5 mg PO DAILY traMADol [Ultram] Med 05/19/17 14:55 Ordered 50 mg PO TID PRN Medication Orders Acetaminophen (Tylenol) 650 mg PO Q6HR PRN PRN Reason: Pain Albuterol (Proventil Hfa) gm INH ASDIRECTED PRN PRN Reason: Dyspnea Albuterol (Proventil Neb Soln) 2.5 mg NEB Q6H PRN PRN Reason: Shortness of Breath Allopurinol (Zyloprim) 100 mg PO BID [facility] Calcitriol (Rocaltrol) 0.25 mcg PO Q48H [facility] Carvedilol (Coreg) 6.[address] [facility] Docusate Sodium (Colace) [address] [facility] Heparin Sodium (Porcine) (Heparin Sodium) 5,[address] [facility] Sodium Chloride (Normal Saline) 1,000 mls @ 125 mls/hr IV ASDIRECTED [facility] Insulin Aspart (Novolog) [address] [facility] Insulin Aspart (Novolog) [address] [facility] Insulin Aspart (Novolog) [address] [facility] Insulin Detemir (Levemir) [address] [facility] Isosorbide Mononitrate (Imdur) [address] [facility] Levothyroxine Sodium (Levothyroxine) [address] [facility] Lorazepam (Ativan) [address] [facility] Nitroglycerin (Nitrostat) 0.4 mg SL Q5M PRN PRN Reason: Chest Pain Non-Formulary Medication (Amlodipine Besylate [Amlodipine Besylate]) 2.[address] [facility] Non-Formulary Medication (Cholecalciferol (Vitamin D3) [Vitamin D3]) 1,000 units PO TID [facility] Non-Formulary Medication (Cyanocobalamin (Vitamin B12) [Vitamin B12]) [address] [facility] Non-Formulary Medication (Hypromellose/Pf [Retaine Hpmc 0.3% Eye Drops]) 1 drop EYEBOTH Q4H PRN PRN Reason: Dry Eyes Non-Formulary Medication (Meclizine [Antivert]) 25 mg PO QID PRN PRN Reason: vertigo Non-Formulary Medication (Potassium Chloride [Potassium Chloride]) [address] [facility] Non-Formulary Medication (Psyllium [Metamucil Sf]) 1 tbsp PO DAILY PRN PRN Reason: Constipation Non-Formulary Medication (Warfarin) [address] [facility] Ondansetron HCl (Zofran) 4 mg IVPUSH Q6H PRN PRN Reason: Nausea/Vomiting Pantoprazole Sodium (Protonix) [address] [facility] Prednisone (Prednisone) [address] [facility] Tramadol HCl (Ultram) 50 mg PO TID PRN PRN Reason: Pain Warfarin Sodium (Coumadin) 2.[address] [facility] Assessment/Plan Comment:: #. Dizziness This is likely due to dehydration resulting in orthostatic dizziness Reason for this is excessive diuresis #. Dehydration Serum creatinine was mildly elevated up to 1.7. Baseline is about 1.4-1.7 She has had this level of creatinine before #. Diabetes mellitus type 1 Patient is on insulin therapy Levemir and NovoLog #. Atrial fibrillation/chronic anticoagulation Patient is on Coumadin #. Hypertension Patient is on multiple medications for hypertension #. History of congestive heart failure Clinically the patient is not in decompensated heart failure at this point Plan: Admit patient to medical floor Start intravenous normal saline going at 125 mL an hour Check orthostatic vital signs Monitor blood sugar before meals and at bedtime Serial examination to avoid fluid overload
[2017-05-19] MEDS: Potassium Chloride 10 MEQ Tab.ER PO SCH ×2 (17:25→21:15)
[2017-05-19] MEDS: Carvedilol 6.25 MG Tab PO SCH (17:25)
[2017-05-19] MEDS: Insulin Aspart 100 Units/ML 3 ML Pen SUBCUT SCH (17:27)
[2017-05-19] MEDS: Insulin Detemir 100 Units/ML 3 ML Pen SUBCUT SCH (21:13)
[2017-05-19] MEDS: Heparin Sodium 5,000 Units/ML Vial SUBCUT SCH (21:14)
[2017-05-19] MEDS: Docusate Sodium 100 MG Cap PO SCH (21:15)
[2017-05-19] MEDS: Allopurinol 100 MG Tab PO SCH (21:15)
[2017-05-19] MEDS: Cholecalciferol (Vitamin D3) 400 Unit Tab PO SCH (21:15)
[2017-05-19] MEDS: LORazepam 1 MG Tab PO SCH (21:16)
[2017-05-20] MEDS: Acetaminophen 325 MG Tab PO PRN ×2 (00:29→19:22)
[2017-05-20] MEDS ORDERED: Insulin Aspart 100 Units/ML 3 ML Pen SUBCUT SCH ×2 (06:00→11:00)
[2017-05-20] MEDS ORDERED: Calcitriol 0.25 MCG Cap PO SCH (09:00)
[2017-05-20] MEDS: Heparin Sodium 5,000 Units/ML Vial SUBCUT SCH (09:41)
[2017-05-20] MEDS: Pantoprazole 40 MG Tab.CR PO SCH (09:42)
[2017-05-20] MEDS: Levothyroxine 150 MCG Tab PO SCH (09:42)
[2017-05-20] MEDS: Isosorbide Mononitrate 60 MG Tab.ER PO SCH (09:42)
[2017-05-20] MEDS: Carvedilol 6.25 MG Tab PO SCH ×2 (09:42→17:10)
[2017-05-20] MEDS: Docusate Sodium 100 MG Cap PO SCH ×2 (09:43→21:32)
[2017-05-20] MEDS: predniSONE 5 MG Tab PO SCH (09:43)
[2017-05-20] MEDS: amLODIPine 5 MG Tab PO SCH (09:43)
[2017-05-20] MEDS: Potassium Chloride 10 MEQ Tab.ER PO SCH ×3 (09:43→21:32)
[2017-05-20] MEDS: Cyanocobalamin (Vitamin B12) 100 MCG Tab PO SCH (09:46)
[2017-05-20] MEDS: Cholecalciferol (Vitamin D3) 400 Unit Tab PO SCH ×3 (09:46→21:33)
[2017-05-20] MEDS: Allopurinol 100 MG Tab PO SCH ×2 (09:46→21:32)
--- NOTE | 2017-05-20 11:29 | PCM.PN ---
- General Info Date of Service: 05/20/17 Admission Dx/Problem (Free Text): Admission Diagnosis/Problem Admission Diagnosis/Problem Dizziness and giddiness Subjective Update: The patient still complains of dizziness Intensity dizziness is more drip She thinks it has improved a little compared to yesterday She is able to sit up. Now states that it has been a chronic problem. - Review of Systems General: Reports: Weakness Pulmonary: Reports: No Symptoms Cardiovascular: Reports: No Symptoms Neurological: Reports: Dizziness - Patient Data Vitals - Most Recent: Last Vital Signs Temp 37.1 C 05/19/17 19:00 Pulse 90 05/19/17 19:00 Resp 20 05/19/17 19:00 BP 110/50 L 05/19/17 19:00 Pulse Ox 97 05/19/17 19:00 Orthostatic Blood Pressure [ 106/53 Standing] Orthostatic Blood Pressure [ 139/70 Sitting] Orthostatic Blood Pressure [ 126/53 Supine] Weight - Most Recent: 106.05 kg I&O - Last 24 Hours: Intake & Output 05/19/17 05/20/17 05/20/17 22:59 06:59 14:59 Intake Total 1500 1538 Output Total 500 500 Balance 1000 1038 Lab Results Last 24 Hours: Laboratory Results - last 24 hr 05/19/17 05/19/17 05/19/17 Range/Units 15:15 16:50 20:48 POC Glucose 113 H 111 H (83-110) mg/dl Troponin I 0.04 H* (0.00-0.02) ng/ml 05/20/17 05/20/17 Range/Units 07:57 11:03 POC Glucose 177 H 242 H (83-110) mg/dl Troponin I (0.00-0.02) ng/ml Med Orders - Current: Current Medications Acetaminophen (Tylenol) 650 mg PO Q6HR PRN PRN Reason: Pain Last Admin: 05/20/17 00:29 Dose: 650 mg Albuterol (Proventil Hfa) 0 gm INH ASDIRECTED PRN PRN Reason: Dyspnea Albuterol (Proventil Neb Soln) 2.5 mg NEB Q6H PRN PRN Reason: Shortness of Breath Allopurinol (Zyloprim) 100 mg PO BID [facility] Last Admin: 05/20/17 09:46 Dose: Not Given Amlodipine Besylate (Norvasc) 2.5 mg PO DAILY [facility] Last Admin: 05/20/17 09:43 Dose: Not Given Artificial Tears (Refresh Celluvisc) 1 each EYEBOTH Q4H PRN PRN Reason: Dry Eyes Calcitriol (Rocaltrol) 0.25 mcg PO Q48H [facility] Last Admin: 05/20/17 09:43 Dose: Not Given Carvedilol (Coreg) 6.25 mg PO BIDMEALS [facility] Last Admin: 05/20/17 09:42 Dose: Not Given Cholecalciferol (Vitamin D3) 1,000 units PO TID [facility] Last Admin: 05/20/17 09:46 Dose: Not Given Cyanocobalamin (Vitamin B12) 100 mcg PO DAILY [facility] Last Admin: 05/20/17 09:46 Dose: Not Given Docusate Sodium (Colace) 100 mg PO BID [facility] Last Admin: 05/20/17 09:43 Dose: Not Given Heparin Sodium (Porcine) (Heparin Sodium) 5,000 units SUBCUT Q8HR [facility] Last Admin: 05/20/17 09:41 Dose: Not Given Sodium Chloride (Normal Saline) 1,000 mls @ 125 mls/hr IV ASDIRECTED [facility] Last Admin: 05/19/17 15:36 Dose: 125 mls/hr Sodium Chloride (Normal Saline) 1,000 mls @ 75 mls/hr IV ASDIRECTED [facility] Insulin Aspart (Novolog) 26 unit SUBCUT ACBREAKFAST [facility] Last Admin: 05/20/17 09:42 Dose: Not Given Insulin Aspart (Novolog) 30 unit SUBCUT ACLUNCH [facility] Insulin Aspart (Novolog) 38 unit SUBCUT ACDINNER [facility] Last Admin: 05/19/17 17:27 Dose: 38 units Insulin Detemir (Levemir) 62 unit SUBCUT BEDTIME [facility] Last Admin: 05/19/17 21:13 Dose: 62 units Isosorbide Mononitrate (Imdur) 60 mg PO ACBRK [facility] Last Admin: 05/20/17 09:42 Dose: Not Given Levothyroxine Sodium (Levothyroxine) 150 mcg PO ACBREAKFAST [facility] Last Admin: 05/20/17 09:42 Dose: Not Given Lorazepam (Ativan) 1 mg PO BEDTIME [facility] Last Admin: 05/19/17 21:16 Dose: 1 mg Meclizine HCl (Antivert) 25 mg PO QID PRN PRN Reason: vertigo Nitroglycerin (Nitrostat) 0.4 mg SL Q5M PRN PRN Reason: Chest Pain Ondansetron HCl (Zofran) 4 mg IVPUSH Q6H PRN PRN Reason: Nausea/Vomiting Pantoprazole Sodium (Protonix) 40 mg PO ACBRK [facility] Last Admin: 05/20/17 09:42 Dose: Not Given Potassium Chloride (Klor-Con 10) 40 meq PO BIDMEALS [facility] Last Admin: 05/20/17 09:43 Dose: Not Given Potassium Chloride (Klor-Con 10) 10 meq PO BEDTIME [facility] Last Admin: 05/19/17 21:15 Dose: 10 meq Prednisone (Prednisone) 5 mg PO WITHBREAKFAST [facility] Last Admin: 05/20/17 09:43 Dose: Not Given Psyllium Husk (Metamucil Sugar Free) 1 pkt PO DAILY PRN PRN Reason: Constipation Tramadol HCl (Ultram) 50 mg PO TID PRN PRN Reason: Pain Warfarin Sodium (Coumadin) 3 mg PO MoTuWeThFr@1400 [facility] Last Admin: 05/19/17 21:16 Dose: 3 mg Warfarin Sodium (Coumadin) 2.5 mg PO SuSa@1400 [facility] Discontinued Medications Sodium Chloride (Normal Saline) 1,000 mls @ 999 mls/hr IV .BOLUS ONE Stop: 05/19/17 14:35 Last Admin: 05/19/17 13:54 Dose: 999 mls/hr - Exam General: Alert Neck: Supple Lungs: Clear to Auscultation GI/Abdominal Exam: Normal Bowel Sounds, Soft, Non-Tender, No Organomegaly, No Distention, No Abnormal Bruit, No Mass, Pelvis Stable Extremities: Normal Inspection, Normal Range of Motion, Non-Tender, No Pedal Edema, Normal Capillary Refill Psy/Mental Status: Alert, Normal Affect, Normal Mood - Problem List Review Problem List Initiated/Reviewed/Updated: Yes - My Orders Last 24 Hours: My Active Orders 05/19/17 14:49 Patient Status [ADT] Routine Oxygen Therapy [RC] PRN Up ad Faith [RC] ASDIRECTED Vital Signs [RC] 07,11,15,19,23,03 OT Evaluation and Treatment [CONS] Routine PT Evaluation and Treatment [CONS] Routine Ondansetron [Zofran] 4 mg IVPUSH Q6H PRN Resuscitation Status Routine 05/19/17 14:55 Acetaminophen [Tylenol] 650 mg PO Q6HR PRN Albuterol [Proventil HFA] 0 gm INH ASDIRECTED PRN Albuterol [Proventil Neb Soln] 2.5 mg NEB Q6H PRN Carboxymethylcellulose Sodium [Refresh Celluvisc] 1 each EYEBOTH Q4H PRN Meclizine [Antivert] 25 mg PO QID PRN Nitroglycerin [Nitrostat] 0.4 mg SL Q5M PRN Psyllium Husk/Aspartame [Metamucil Sugar Free] 1 pkt PO DAILY PRN traMADol [Ultram] 50 mg PO TID PRN 05/19/17 15:00 Sodium Chloride 0.9% [Normal Saline] 1,000 ml IV ASDIRECTED 05/19/17 15:02 Blood Glucose Check, Bedside [RC] QIDACANDBED 05/19/17 17:00 Insulin Aspart [NovoLOG] 38 unit SUBCUT ACDINNER 05/19/17 18:00 Carvedilol [Coreg] 6.25 mg PO BIDMEALS Potassium Chloride [Klor-Con 10] 40 meq PO BIDMEALS 05/19/17 21:00 Allopurinol [Zyloprim] 100 mg PO BID Cholecalciferol (Vitamin D3) [Vitamin D3] 1,000 units PO TID Docusate Sodium [Colace] 100 mg PO BID Insulin Detemir [Levemir] 62 unit SUBCUT BEDTIME LORazepam [Ativan] 1 mg PO BEDTIME Potassium Chloride [Klor-Con 10] 10 meq PO BEDTIME Warfarin [Coumadin] 3 mg PO MoTuWeThFr@1400 05/19/17 22:00 Heparin Sodium 5,000 units SUBCUT Q8HR 05/19/17 Lunch Consistent Carbohydrate Diet [DIET] 05/20/17 06:00 Insulin Aspart [NovoLOG] 26 unit SUBCUT ACBREAKFAST Isosorbide Mononitrate [Imdur] 60 mg PO ACBRK Levothyroxine 150 mcg PO ACBREAKFAST Pantoprazole [ProTONIX] 40 mg PO ACBRK 05/20/17 08:00 predniSONE 5 mg PO WITHBREAKFAST 05/20/17 09:00 Calcitriol [Rocaltrol] 0.25 mcg PO Q48H Cyanocobalamin (Vitamin B12) [Vitamin B12] 100 mcg PO DAILY amLODIPine [Norvasc] 2.5 mg PO DAILY 05/20/17 09:45 BASIC METABOLIC PANEL,BMP [CHEM] Urgent TROPONIN I [CHEM] Urgent 05/20/17 11:00 Insulin Aspart [NovoLOG] 30 unit SUBCUT ACLUNCH 05/20/17 11:23 Head wo Cont [CT] Routine 05/20/17 11:30 Sodium Chloride 0.9% @ 75 MLS/HR(1000ml) Sodium Chloride 0.9% [Normal Saline] 1 ,000 ml IV ASDIRECTED 05/24/17 14:00 Warfarin [Coumadin] 2.5 mg PO SuSa@1400 - Plan Plan:: #. Dizziness This is likely due to dehydration resulting in orthostatic dizziness Reason for this is excessive diuresis #. Dehydration Serum creatinine was mildly elevated up to 1.7. Baseline is about 1.4-1.7 She has had this level of creatinine before #. Diabetes mellitus type 1 Patient is on insulin therapy Levemir and NovoLog #. Atrial fibrillation/chronic anticoagulation Patient is on Coumadin #. Hypertension Patient is on multiple medications for hypertension #. History of congestive heart failure Clinically the patient is not in decompensated heart failure at this point Plan: Send sample for PT and INR Reduce intravenous fluid to 75 mL an hour Consult physical therapy Consult occupational therapy Monitor blood sugar before meals and at bedtime
[2017-05-20] MEDS ORDERED: Sodium Chloride 0.9% 1,000 ML IV SCH (11:30)
--- NOTE | 2017-05-20 14:04 | CT ---
Clinical history: 77-year-old 233 pound diabetic female complaining of headaches who was reported on 10 April 2017 to have a "right-sided shunt in good position without signs of malfunction and stabl e bilateral subdural fluid collections (status post right parietal craniotomy)". Reevaluate please. TECHNIQUE: Volume acquisition of data unenhanced CT scan of the head and brain obtained while the pat ient was lying supine on the Siemens multi slice scanner [facility]. All data archived in the PACS system for storage and study (bone/brain windows). Interpretation: Abnormal.... but, unchanged when compared directly to previous CT scans of the head and brain dated 28 May 2016 and 10 April 2017. 1. Anatomically oriented and opposed posterior parietal bone flap craniotomy on the right. 2. Bilateral small subdural hygromas unchanged in density and thickness. 3. Shunt enters the bony calvarium anterior parietal region high in the convexity between the leading edge is a bone flap and the lower sioux skull, extends down across the midline with the tip "buried" in t he posterior horn of the left lateral ventricle, unchanged. 4. No sign of hydrocephalus; no new supratentorial or posterior fossa mass lesion; no sign of acute i ntracranial bleed. 5. No new focal areas of cerebral infarct or encephalomalacia. Cerebellum and brainstem unremarkable.
[2017-05-20] MEDS: Insulin Aspart 100 Units/ML 3 ML Pen SUBCUT SCH (17:10)
[2017-05-20] MEDS: LORazepam 1 MG Tab PO SCH (21:32)
[2017-05-20] MEDS: Insulin Detemir 100 Units/ML 3 ML Pen SUBCUT SCH (21:36)
[2017-05-21] MEDS: Levothyroxine 150 MCG Tab PO SCH (05:45)
[2017-05-21] MEDS: Isosorbide Mononitrate 60 MG Tab.ER PO SCH (05:45)
[2017-05-21] MEDS: Pantoprazole 40 MG Tab.CR PO SCH (05:46)
[2017-05-21] MEDS ORDERED: Insulin Aspart 100 Units/ML 3 ML Pen SUBCUT SCH ×3 (08:00→18:00)
[2017-05-21] MEDS: Cholecalciferol (Vitamin D3) 400 Unit Tab PO SCH (08:05)
[2017-05-21] MEDS: Allopurinol 100 MG Tab PO SCH (08:05)
[2017-05-21] MEDS: Potassium Chloride 10 MEQ Tab.ER PO SCH (08:05)
[2017-05-21] MEDS: Docusate Sodium 100 MG Cap PO SCH (08:05)
[2017-05-21] MEDS: predniSONE 5 MG Tab PO SCH (08:05)
[2017-05-21] MEDS: Cyanocobalamin (Vitamin B12) 100 MCG Tab PO SCH (08:05)
[2017-05-21] MEDS: amLODIPine 5 MG Tab PO SCH (08:08)
[2017-05-21] MEDS: Carvedilol 6.25 MG Tab PO SCH (08:08)
[2017-05-21] MEDS ORDERED: Bumetanide 1 MG Tab PO SCH (10:15)
--- NOTE | 2017-05-21 10:48 | PCM.DCSUM1 ---
Discharge Summary - Hospital Course Free Text/Narrative:: The patient is a 77-year-old female with medical history of diabetes mellitus, hypertension, coronary artery disease, atrial fibrillation, chronic kidney disease, hypothyroidism. The patient presented to [facility] and was evaluated by Dr. Medel. The patient complained of feeling dizzy which has been going on since 3 days. The dizziness came on when she stood up and better when she laid down. She was on aggressive diuresis with amiloride, Bumex, and metolazone. Patient got admitted to the hospital and was started on intravenous fluids. Diuretics were placed on hold. Her dizziness has improved and the patient will continue with outpatient physical therapy. I have restarted the patient on Bumex. Amiloride and metolazone are placed on hold and the patient will have repeat visit metabolic panel in 1 week. #. Dizziness This was likely due to dehydration resulting in orthostatic dizziness Reason for this was excessive diuresis Improved #. Dehydration Serum creatinine was mildly elevated up to 1.7. Baseline is about 1.4-1.7 #. Diabetes mellitus type 1 Patient is on insulin therapy Levemir and NovoLog #. Atrial fibrillation/chronic anticoagulation Patient is on Coumadin #. Hypertension Patient is on multiple medications for hypertension #. History of congestive heart failure Clinically the patient is not in decompensated heart failure at this point - Discharge Data Discharge Date: 05/21/17 Discharge Disposition: Home, Self-Care 01 Condition: Good - Patient Summary/Data Consults: Consultations 05/19/17 14:49 OT Evaluation and Treatment [CONS] Routine PT Evaluation and Treatment [CONS] Routine - Patient Instructions Diet: Diabetic Diet Activity: As Tolerated Driving: May Drive Today Showering/Bathing: May Shower Notify Provider of: Fever, Swelling and Redness - Discharge Plan Home Medications: Home Meds Isosorbide Mononitrate [Imdur] 60 mg PO DAILY 11/25/13 [History] LORazepam [Ativan] 1 mg PO BEDTIME 11/25/13 [History] Levothyroxine Sodium [Synthroid] 150 mcg PO ACBREAKFAST 11/25/13 [History] Nitroglycerin [Nitrostat] 0.4 mg SL Q5M PRN MDD 3 11/25/13 [History] Psyllium [Metamucil SF] 1 tbsp PO DAILY PRN 11/25/13 [History] amLODIPine Besylate [Amlodipine Besylate] 2.5 mg PO DAILY 11/25/13 [History] Acetaminophen 650 mg PO Q6HR PRN 03/28/15 [History] Albuterol [Proventil HFA] 2 inh INH ASDIRECTED PRN 03/28/15 [History] Potassium Chloride 40 meq PO TID 03/28/15 [History] Cholecalciferol (Vitamin D3) [Vitamin D3] 1,000 units PO TID 03/29/15 [History] Warfarin [Coumadin] 3 mg PO BEDTIME 10/30/15 [History] Carvedilol [Coreg] 6.25 mg PO BIDMEALS 03/27/16 [History] Cyanocobalamin (Vitamin B12) [Vitamin B12] 100 mcg PO DAILY 03/27/16 [History] Hypromellose/PF [Retaine Hpmc 0.3% Eye Drops] 1 drop EYEBOTH Q4H PRN 03/27/16 [ History] Meclizine [Antivert] 25 mg PO QID PRN 03/27/16 [History] Pantoprazole Sodium [Protonix] 40 mg PO DAILY 03/27/16 [History] Docusate Sodium 100 mg PO BID 08/30/16 [History] Insulin Aspart [NovoLOG] 30 unit SUBCUT ACLUNCH pen 01/01/17 [Rx] Insulin Aspart [NovoLOG] 38 unit SUBCUT ACDINNER pen 01/01/17 [Rx] Insulin Detemir [Levemir] 62 unit SUBCUT BEDTIME pen 01/01/17 [Rx] Insulin Detemir [Levemir] 75 unit SUBCUT DAILY pen 01/01/17 [Rx] Albuterol Sulfate 2.5 mg IH Q6H PRN 02/05/17 [History] Allopurinol [Zyloprim] 100 mg PO BID 05/02/17 [History] Bumetanide [Bumex] 2 mg PO TID 05/02/17 [History] Calcitriol 0.25 mcg PO Q48H 05/02/17 [History] Insulin Aspart [NovoLOG] 26 unit SUBCUT ACBREAKFAST 05/02/17 [History] Warfarin [Coumadin] 2.5 mg PO DAILY 05/02/17 [History] traMADol [Ultram] 50 mg PO DAILY PRN 05/02/17 [History] predniSONE [Prednisone] See Taper PO DAILY #45 tablet 05/05/17 [Rx] - Review of Systems General: Reports: No Symptoms Pulmonary: Reports: No Symptoms Cardiovascular: Reports: No Symptoms Gastrointestinal: Reports: No Symptoms Musculoskeletal: Reports: No Symptoms Psychiatric: Reports: No Symptoms - Patient Data Vitals - Most Recent: Last Vital Signs Temp 36.9 C 05/21/17 08:15 Pulse 86 05/21/17 08:15 Resp 20 05/21/17 08:15 BP 125/66 05/21/17 08:15 Pulse Ox 98 05/21/17 08:15 Orthostatic Blood Pressure [ 106/53 Standing] Orthostatic Blood Pressure [ 139/70 Sitting] Orthostatic Blood Pressure [ 126/53 Supine] Weight - Most Recent: 109.769 kg I&O - Last 24 hours: Intake & Output 05/20/17 05/21/17 05/21/17 22:59 06:59 14:59 Intake Total 2044 600 Output Total 900 300 Balance 1144 300 Lab Results - Last 24 hrs: Laboratory Results - last 24 hr 05/20/17 05/20/17 05/20/17 Range/Units 11:03 11:46 11:47 PT 25.1 H (9.0-12.0) SEC INR 2.5 H (0.9-1.2) Sodium 133 L (135-145) mmol/L Potassium 3.8 (3.6-5.0) mmol/L Chloride 98 L (101-111) mmol/L Carbon Dioxide 26.0 (21.0-31.0) mmol/L Anion Gap 12.8 BUN 38 H (7-18) mg/dL Creatinine 1.5 H (0.6-1.3) mg/dL Est Cr Clr Drug Dosing 24.84 mL/min Estimated GFR (MDRD) 34 Glucose 250 H (74-105) mg/dL POC Glucose 242 H (83-110) mg/dl Calcium 8.8 (8.4-10.2) mg/dl Troponin I 0.02 (0.00-0.02) ng/ml 05/20/17 05/20/17 05/21/17 Range/Units 16:48 21:12 07:35 PT (9.0-12.0) SEC INR (0.9-1.2) Sodium (135-145) mmol/L Potassium (3.6-5.0) mmol/L Chloride (101-111) mmol/L Carbon Dioxide (21.0-31.0) mmol/L Anion Gap BUN (7-18) mg/dL Creatinine (0.6-1.3) mg/dL Est Cr Clr Drug Dosing mL/min Estimated GFR (MDRD) Glucose (74-105) mg/dL POC Glucose 300 H 301 H 222 H (83-110) mg/dl Calcium (8.4-10.2) mg/dl Troponin I (0.00-0.02) ng/ml Med Orders - Current: Current Medications Acetaminophen (Tylenol) 650 mg PO Q6HR PRN PRN Reason: Pain Last Admin: 05/20/17 19:22 Dose: 650 mg Albuterol (Proventil Hfa) 0 gm INH ASDIRECTED PRN PRN Reason: Dyspnea Albuterol (Proventil Neb Soln) 2.5 mg NEB Q6H PRN PRN Reason: Shortness of Breath Allopurinol (Zyloprim) 100 mg PO BID [facility] Last Admin: 05/21/17 08:05 Dose: 100 mg Amlodipine Besylate (Norvasc) 2.5 mg PO DAILY [facility] Last Admin: 05/21/17 08:08 Dose: 2.5 mg Artificial Tears (Refresh Celluvisc) 1 each EYEBOTH Q4H PRN PRN Reason: Dry Eyes Bumetanide (Bumex) 2 mg PO TID [facility] Calcitriol (Rocaltrol) 0.25 mcg PO Q48H [facility] Last Admin: 05/20/17 09:43 Dose: Not Given Carvedilol (Coreg) 6.25 mg PO BIDMEALS [facility] Last Admin: 05/21/17 08:08 Dose: 6.25 mg Cholecalciferol (Vitamin D3) 1,000 units PO TID [facility] Last Admin: 05/21/17 08:05 Dose: 1,000 units Cyanocobalamin (Vitamin B12) 100 mcg PO DAILY [facility] Last Admin: 05/21/17 08:05 Dose: 100 mcg Docusate Sodium (Colace) 100 mg PO BID [facility] Last Admin: 05/21/17 08:05 Dose: 100 mg Insulin Aspart (Novolog) 26 unit SUBCUT WITHBREAKFAST [facility] Last Admin: 05/21/17 08:06 Dose: 26 units Insulin Aspart (Novolog) 30 unit SUBCUT WITHLUNCH [facility] Insulin Aspart (Novolog) 38 unit SUBCUT WITHDINNER [facility] Insulin Detemir (Levemir) 62 unit SUBCUT BEDTIME [facility] Last Admin: 05/20/17 21:36 Dose: 62 units Isosorbide Mononitrate (Imdur) 60 mg PO ACBRK [facility] Last Admin: 05/21/17 05:45 Dose: 60 mg Levothyroxine Sodium (Levothyroxine) 150 mcg PO ACBREAKFAST [facility] Last Admin: 05/21/17 05:45 Dose: 150 mcg Lorazepam (Ativan) 1 mg PO BEDTIME [facility] Last Admin: 05/20/17 21:32 Dose: 1 mg Meclizine HCl (Antivert) 25 mg PO QID PRN PRN Reason: vertigo Nitroglycerin (Nitrostat) 0.4 mg SL Q5M PRN PRN Reason: Chest Pain Ondansetron HCl (Zofran) 4 mg IVPUSH Q6H PRN PRN Reason: Nausea/Vomiting Pantoprazole Sodium (Protonix) 40 mg PO ACBRK [facility] Last Admin: 05/21/17 05:46 Dose: 40 mg Potassium Chloride (Klor-Con 10) 40 meq PO BIDMEALS [facility] Last Admin: 05/21/17 08:05 Dose: 40 meq Potassium Chloride (Klor-Con 10) 10 meq PO BEDTIME [facility] Last Admin: 05/20/17 21:32 Dose: 10 meq Prednisone (Prednisone) 5 mg PO WITHBREAKFAST [facility] Last Admin: 05/21/17 08:05 Dose: 5 mg Psyllium Husk (Metamucil Sugar Free) 1 pkt PO DAILY PRN PRN Reason: Constipation Tramadol HCl (Ultram) 50 mg PO TID PRN PRN Reason: Pain Warfarin Sodium (Pharmacy To Dose - Warfarin) 1 dose .XX ASDIRECTED [facility] Discontinued Medications Heparin Sodium (Porcine) (Heparin Sodium) 5,000 units SUBCUT Q8HR [facility] Last Admin: 05/20/17 09:41 Dose: Not Given Sodium Chloride (Normal Saline) 1,000 mls @ 999 mls/hr IV .BOLUS ONE Stop: 05/19/17 14:35 Last Admin: 05/19/17 13:54 Dose: 999 mls/hr Sodium Chloride (Normal Saline) 1,000 mls @ 125 mls/hr IV ASDIRECTED [facility] Last Admin: 05/19/17 15:36 Dose: 125 mls/hr Sodium Chloride (Normal Saline) 1,000 mls @ 75 mls/hr IV ASDIRECTED [facility] Insulin Aspart (Novolog) 26 unit SUBCUT ACBREAKFAST [facility] Last Admin: 05/20/17 09:42 Dose: Not Given Insulin Aspart (Novolog) 30 unit SUBCUT ACLUNCH [facility] Last Admin: 05/20/17 12:16 Dose: 30 units Insulin Aspart (Novolog) 38 unit SUBCUT ACDINNER [facility] Last Admin: 05/20/17 17:10 Dose: 38 units Warfarin Sodium (Coumadin) 3 mg PO MoTuWeThFr@1400 [facility] Last Admin: 05/19/17 21:16 Dose: 3 mg Warfarin Sodium (Coumadin) 2.5 mg PO SuSa@1400 [facility] Warfarin Sodium (Coumadin) 3 mg PO ONETIME ONE Stop: 05/20/17 14:01 Last Admin: 05/20/17 14:13 Dose: 3 mg - Exam General: Reports: Alert, Oriented Lungs: Reports: Clear to Auscultation Cardiovascular: Reports: Regular Rate, Regular Rhythm GI/Abdominal Exam: Soft, Non-Tender Extremities: Normal Inspection
[2017-05-21 11:13] VITALS: BP 124/64
[2017-05-21] MEDS ORDERED: Docusate Sodium 100 MG Cap PO ONE (12:59)
[2017-05-21] MEDS ORDERED: amLODIPine 5 MG Tab PO ONE (12:59)
[2017-05-21] MEDS ORDERED: Heparin Sodium 5,000 Units/ML Vial SUBCUT ONE (12:59)
[2017-05-21] MEDS ORDERED: Carvedilol 6.25 MG Tab PO ONE (12:59)
[2017-05-21] MEDS ORDERED: Pantoprazole 40 MG Tab.CR PO ONE (12:59)
[2017-05-21] MEDS ORDERED: Calcitriol 0.25 MCG Cap PO ONE (12:59)
[2017-05-21] MEDS ORDERED: Acetaminophen 325 MG Tab PO ONE (12:59)
[2017-05-21] MEDS ORDERED: predniSONE 5 MG Tab PO ONE (12:59)
[2017-05-21] MEDS ORDERED: Isosorbide Mononitrate 60 MG Tab.ER PO ONE (12:59)
[2017-05-21] MEDS ORDERED: Cholecalciferol (Vitamin D3) 400 Unit Tab PO ONE (12:59)
[2017-05-21] MEDS ORDERED: Cyanocobalamin (Vitamin B12) 100 MCG Tab PO ONE (12:59)
[2017-05-21] MEDS ORDERED: Allopurinol 100 MG Tab PO ONE (12:59)
[2017-05-21] MEDS ORDERED: Sodium Chloride 0.9% 1,000 ML IV ONE (12:59)
[2017-05-21] MEDS ORDERED: Levothyroxine 150 MCG Tab PO ONE (12:59)
[2017-05-21] MEDS ORDERED: Potassium Chloride 10 MEQ Tab.ER PO ONE (12:59)
[2017-05-24] MEDS ORDERED: Warfarin 2.5 MG Tab PO SCH (14:00)
== END 2017-05-21 13:00 | disposition home or self-care (01) ==
LOC: DL.ED 13:28 → DL.MS 14:49 → UNDOADMOB 14:49
PROVIDERS: ADMIT Hospitalist; ATTEND Hospitalist
DX: R42 Dizziness and giddiness (principal); E86.0 Dehydration; E10.22 Type 1 diabetes mellitus with diabetic chronic kidney disease; I13.0 Hypertensive heart and chronic kidney disease with heart failure and stage 1 through stage 4 chronic kidney disease, or unspecified chronic kidney disease; N18.3 Chronic kidney disease, stage 3 (moderate); K21.9 Gastro-esophageal reflux disease without esophagitis; K59.09 Other constipation; E03.9 Hypothyroidism, unspecified; E66.9 Obesity, unspecified; F32.9 Major depressive disorder, single episode, unspecified; G45.9 Transient cerebral ischemic attack, unspecified; Z68.30 Body mass index [BMI] 30.0-30.9, adult; Z79.4 Long term (current) use of insulin; Z79.01 Long term (current) use of anticoagulants; Z79.899 Other long term (current) drug therapy
CPT/HCPCS: 36415; 70450; 80048; 82962; 84484; 85610; 96360; 97162; 97165; 99284; A9270; J1644; J1815; J7030; 96372; G0378

== ENCOUNTER 2017-06-20 11:01 | Emergency (ER) | payer BC, OTHER ==
[2017-06-20] MEDS ORDERED: Promethazine 25 MG/ML SDV IM ONE (11:46)
[2017-06-20] MEDS ORDERED: Butorphanol 2 MG/ML SDV IM ONE (11:49)
--- NOTE | 2017-06-20 12:11 | EDM.PDOC ---
ED HPI GENERAL MEDICAL PROBLEM - General Chief Complaint: Headache Stated Complaint: HEADACHES Time Seen by Provider: 06/20/17 11:30 Source of Information: Reports: Patient, Family, RN, RN Notes Reviewed History Limitations: Reports: No Limitations - History of Present Illness INITIAL COMMENTS - FREE TEXT/NARRATIVE: Patient presents to the ER with c/o headache for 1 month. She states she was seeing her registered nurse today and told her about the headaches she has been having. Her registered nurse sent her to [facility] for a STAT head CT and told her to register for ER. Patient states she sees Dr. Yates at [facility], who has referred her to [place] to Dr. Anne in Neurology, but she has not been contacted about an appointment being set up. Pt admits to nausea at times. The intensity of the headache comes and goes. Pt admits to fever and chills at times, denies V/D, chest pain. Onset: Gradual Duration: Waxing/Waning Location: Reports: Head Quality: Reports: Stabbing, Throbbing Severity: Moderate Improves with: Reports: None Worsens with: Reports: None Associated Symptoms: Reports: Fever/Chills, Headaches, Nausea/Vomiting Head Pain Score (Numeric/FACES): 6 - Related Data Allergies Allergy/AdvReac Type Severity Reaction Status Date / Time codeine Allergy Severe Rash Verified 06/20/17 11:22 Iodinated Contrast- Oral and Allergy Severe Other Verified 06/20/17 11:22 IV Dye [Iodinated Contrast Media - IV Dye] Penicillins Allergy Severe Hives Verified 06/20/17 11:22 pentazocine [From Talwin] Allergy Severe Delusions Verified 06/20/17 11:22 Sulfa (Sulfonamide Allergy Severe Hives Verified 06/20/17 11:22 Antibiotics) sulfamethoxazole Allergy Severe Hives Verified 06/20/17 11:22 [From Bactrim] trimethoprim [From Bactrim] Allergy Severe Hives Verified 06/20/17 11:22 ampicillin Allergy Intermediate Hives Verified 06/20/17 11:22 atorvastatin calcium Allergy Mild Muscle Verified 06/20/17 11:22 [From Lipitor] Aches duloxetine HCl Allergy Mild Nausea Verified 06/20/17 11:22 [From Cymbalta] indomethacin [From Indocin] Allergy Mild Headache Verified 06/20/17 11:22 indomethacin sodium Allergy Mild Headache Verified 06/20/17 11:22 [From Indocin] lactose Allergy Mild Diarrhea Verified 06/20/17 11:22 lisinopril Allergy Mild Cough Verified 06/20/17 11:22 metolazone Allergy Mild Muscle Verified 06/20/17 11:22 Aches metoprolol Allergy Mild Fatigue Verified 06/20/17 11:22 oxycodone [Oxycodone] Allergy Mild Other Verified 06/20/17 11:22 pravastatin Allergy Mild Muscle Verified 06/20/17 11:22 Aches simvastatin Allergy Mild Muscle Verified 06/20/17 11:22 Aches spironolactone Allergy Mild Headache Verified 06/20/17 11:22 tuberculin, purified protein Allergy Mild Rash Verified 06/20/17 11:22 deriva [tuberculin,purif.prot.deriv.] clonazepam [From Klonopin] Allergy Other Verified 06/20/17 11:22 hydrochlorothiazide Allergy Lethargy Verified 06/20/17 11:22 tetanus toxoid, adsorbed Allergy Other Verified 06/20/17 11:22 zoster vaccine live Allergy Cannot Verified 06/20/17 11:22 Remember flannel Allergy Burning Uncoded 05/02/17 11:55 Home Meds: Home Meds Isosorbide Mononitrate [Imdur] 60 mg PO DAILY 11/25/13 [History] LORazepam [Ativan] 1 mg PO BEDTIME 11/25/13 [History] Levothyroxine Sodium [Synthroid] 150 mcg PO ACBREAKFAST 11/25/13 [History] Nitroglycerin [Nitrostat] 0.4 mg SL Q5M PRN MDD 3 11/25/13 [History] Psyllium [Metamucil SF] 1 tbsp PO DAILY PRN 11/25/13 [History] amLODIPine Besylate [Amlodipine Besylate] 2.5 mg PO DAILY 11/25/13 [History] Acetaminophen 650 mg PO Q6HR PRN 03/28/15 [History] Albuterol [Proventil HFA] 2 inh INH ASDIRECTED PRN 03/28/15 [History] Potassium Chloride 40 meq PO TID 03/28/15 [History] Cholecalciferol (Vitamin D3) [Vitamin D3] 1,000 units PO TID 03/29/15 [History] Warfarin [Coumadin] 3 mg PO BEDTIME 10/30/15 [History] Carvedilol [Coreg] 6.25 mg PO BIDMEALS 03/27/16 [History] Cyanocobalamin (Vitamin B12) [Vitamin B12] 100 mcg PO DAILY 03/27/16 [History] Hypromellose/PF [Retaine Hpmc 0.3% Eye Drops] 1 drop EYEBOTH Q4H PRN 03/27/16 [ History] Meclizine [Antivert] 25 mg PO QID PRN 03/27/16 [History] Pantoprazole Sodium [Protonix] 40 mg PO DAILY 03/27/16 [History] Docusate Sodium 100 mg PO BID 08/30/16 [History] Insulin Aspart [NovoLOG] 30 unit SUBCUT ACLUNCH pen 01/01/17 [Rx] Insulin Aspart [NovoLOG] 38 unit SUBCUT ACDINNER pen 01/01/17 [Rx] Insulin Detemir [Levemir] 62 unit SUBCUT BEDTIME pen 01/01/17 [Rx] Insulin Detemir [Levemir] 75 unit SUBCUT DAILY pen 01/01/17 [Rx] Albuterol Sulfate 2.5 mg IH Q6H PRN 02/05/17 [History] Allopurinol [Zyloprim] 100 mg PO BID 05/02/17 [History] Bumetanide [Bumex] 2 mg PO TID 05/02/17 [History] Calcitriol 0.25 mcg PO Q48H 05/02/17 [History] Insulin Aspart [NovoLOG] 26 unit SUBCUT ACBREAKFAST 05/02/17 [History] Warfarin [Coumadin] 2.5 mg PO DAILY 05/02/17 [History] traMADol [Ultram] 50 mg PO DAILY PRN 05/02/17 [History] predniSONE [Prednisone] See Taper PO DAILY #45 tablet 05/05/17 [Rx] Past Medical History HEENT History: Reports: Cataract, Impaired Vision, Other (See Below) Other HEENT History: HEARING LOSS TOTAL-RIGHT PARTIAL-LEFT, WEARS BILAT HEARING AIDES Cardiovascular History: Reports: Afib, CAD, Heart Failure, Hypertension, [place], Stents, Other (See Below) Other Cardiovascular History: CAROTID ARTERY DISEASE. HEART FAILURE WITH PRESERVED EJECTION FRACTION. HYPERTENSIVE HEART DISEASE. TIA Respiratory History: Reports: Asthma, Bronchitis, Recurrent, Sleep Apnea Gastrointestinal History: Reports: Chronic Constipation, GERD, Hemorrhoids, Irritable Bowel Syndrome Genitourinary History: Reports: Chronic Renal Insuffiency, Renal Calculus, Other (See Below) Other Genitourinary History: CKD STAGE III INTERVENTION ANALYST History: Reports: Other (See Below) Other OB/BYN History: UTERUS WAS ADHESED TO HER SPINE Musculoskeletal History: Reports: Back Pain, Chronic, Fracture, Osteoarthritis Other Musculoskeletal History: FRACTURED ARM WHEN SHE WAS YOUNG Neurological History: Reports: TIA, Other (See Below) Other Neuro History: NORMAL PRESSURE HYDROCEPHALUS. SUBDURAL HEMATOMA. lorazepam controls headaches from shunt Psychiatric History: Reports: Depression Endocrine/Metabolic History: Reports: Diabetes, Type II, Hypothyroidism, Obesity /BMI 30+, Osteoporosis, Vitamin D Deficiency Hematologic History: Reports: Blood Transfusion(s) Immunologic History: Reports: None Oncologic (Cancer) History: Reports: Malignant Melanoma Dermatologic History: Reports: None - Infectious Disease History Infectious Disease History: Reports: Chicken Pox, Measles, Mumps, Shingles - Past Surgical History Head Surgeries/Procedures: Reports: Shunt HEENT Surgical History: Reports: Adenoidectomy, Cataract Surgery, Tonsillectomy Cardiovascular Surgical History: Reports: Carotid Endarterectomy, Coronary Artery Stent Respiratory Surgical History: Reports: None GI Surgical History: Reports: Appendectomy, Colonoscopy, EGD, Polypectomy, Other (See Below) Other GI Surgeries/Procedures: large colon mostly resected - annotated redundant bowel Female Surgical History: Reports: Breast Biopsy, Cystectomy, Hysterectomy, Salpingo-Oophorectomy, Other (See Below) Other Female Surgeries/Procedures: breast cyst Endocrine Surgical History: Reports: None Neurological Surgical History: Reports: Other (See Below) Other Neurological Surgeries/Procedures: spinal tap and CLIENT SERVICE MANAGER shunt (2007) Musculoskeletal Surgical History: Reports: None Oncologic Surgical History: Reports: Biopsy of Breast Dermatological Surgical History: Reports: None Social & Family History - Family History Family Medical History: Noncontributory - Tobacco Use Smoking Status *Q: Never Smoker Years of Tobacco use: 10 Used Tobacco, but Quit: Yes Month/Year Tobacco Last Used: 06/11/1982 Second Hand Smoke Exposure: No - Caffeine Use Caffeine Use: Reports: None - Alcohol Use Days Per Week of Alcohol Use: 0 - Recreational Drug Use Recreational Drug Use: No Drug Use in Last 12 Months: No - Living Situation & Occupation Living situation: Reports: with Family Occupation: Retired ED ROS GENERAL - Review of Systems Review Of Systems: ROS reveals no pertinent complaints other than HPI. - Physical Exam Exam: See Below Exam Limited By: No Limitations General Appearance: Alert, WD/WN, No Apparent Distress Eye Exam: Bilateral Eye: EOMI, Normal Inspection Ears: Normal External Exam, Hearing Grossly Normal Nose: Normal Inspection Throat/Mouth: Normal Inspection, Normal Voice, No Airway Compromise Head Exam: Atraumatic, Normocephalic Neck: Normal Inspection, Supple, Non-Tender, Full Range of Motion Respiratory/Chest: No Respiratory Distress, Lungs Clear, Normal Breath Sounds, No Accessory Muscle Use, Chest Non-Tender Cardiovascular: Normal Peripheral Pulses, Regular Rate, Rhythm, No Edema, No Gallop, No JVD, No Murmur, No Rub GI/Abdominal: Normal Bowel Sounds, Soft, Non-Tender, No Organomegaly, No Distention, No Abnormal Bruit, No Mass (Female) Exam: Deferred Rectal (Female) Exam: Deferred Back Exam: Normal Inspection, Full Range of Motion Extremities: Normal Inspection, Normal Range of Motion, Non-Tender, No Pedal Edema, Normal Capillary Refill Psychiatric: Normal Affect, Normal Mood Skin Exam: Warm, Dry, Intact, Normal Color, No Rash Course - Vital Signs Last Recorded V/S: Last Vital Signs Temp 97.7 F 06/20/17 13:00 Pulse 79 06/20/17 13:00 Resp 19 06/20/17 13:00 BP 130/43 L 06/20/17 13:00 Pulse Ox 93 L 06/20/17 13:00 - Orders/Labs/Meds Labs: Laboratory Tests 06/20/17 06/20/17 Range/Units 11:50 11:50 WBC 9.4 (5.0-10.0) 10^3/uL RBC 3.97 L (4.2-5.4) 10^6/uL Hgb 12.5 (12.0-16.0) g/dL Hct 38.5 (37.0-47.0) % MCV 97.0 D (80-100) fL MCH 31.5 (27.0-34.0) pg MCHC 32.5 L (33.0-35.0) g/dL Plt Count 163 (150-450) 10^3/uL Neut % (Auto) 62.4 (42.2-75.2) % Lymph % (Auto) 16.2 L (20.5-50.1) % Yates % (Auto) 16.0 H (2-8) % Eos % (Auto) 4.9 H (1.0-3.0) % Baso % (Auto) 0.5 (0.0-1.0) % Sodium 133 L (135-145) mmol/L Potassium 4.2 (3.6-5.0) mmol/L Chloride 94 L (101-111) mmol/L Carbon Dioxide 31.0 (21.0-31.0) mmol/L Anion Gap 12.2 BUN 25 H (7-18) mg/dL Creatinine 1.6 H (0.6-1.3) mg/dL Est Cr Clr Drug Dosing 23.29 mL/min Estimated GFR (MDRD) 31 BUN/Creatinine Ratio 15.62 Glucose 313 H (74-105) mg/dL Calcium 9.1 (8.4-10.2) mg/dl Total Bilirubin 0.9 (0.2-1.0) mg/dL AST 46 H (10-42) IU/L ALT 29 (10-60) IU/L Alkaline Phosphatase 119 (42-121) IU/L Total Protein 6.3 L (6.7-8.2) g/dl Albumin 3.2 (3.2-5.5) g/dl Globulin 3.1 Albumin/Globulin Ratio 1.03 Ethyl Alcohol < 5 mg/dL Meds: Medications Discontinued Medications Generic Name Dose Route Start Last Admin Trade Name Theoq PRN Reason Stop Dose Admin Butorphanol Tartrate 2 mg 06/20/17 11:49 06/20/17 11:56 Stadol IM 06/20/17 11:50 2 mg ONETIME ONE Administration Promethazine HCl 25 mg 06/20/17 11:46 06/20/17 11:56 Phenergan IM 06/20/17 11:47 25 mg ONETIME ONE Administration - Radiology Interpretation Free Text/Narrative:: Head CT: No new acute findings See rad report Departure - Departure Time of Disposition: 12:39 Disposition: Home, Self-Care 01 Condition: Fair Clinical Impression: Headache Qualifiers: Headache type: unspecified Headache chronicity pattern: chronic headache Intractability: intractable Qualified Code(s): R51 - Headache - Discharge Information Instructions: Recurrent Migraine Headache, [id number] Referrals: PCP,Unobtain [Primary Care Provider] - Forms: ED Department Discharge Additional Instructions: Continue to attempt to follow up with Neurology Continue home medications as prescribed.
[2017-06-20 12:13] LABS: CHLORIDE,CL 94 mmol/L (101-111); SODIUM,NA 133 mmol/L (135-145)
[2017-06-20 13:03] VITALS: BP 130/43
== END 2017-06-20 13:11 | disposition home or self-care (01) ==
LOC: DL.ED 11:01
DX: R51 Headache (principal); I50.9 Heart failure, unspecified; I25.2 Old myocardial infarction; I13.0 Hypertensive heart and chronic kidney disease with heart failure and stage 1 through stage 4 chronic kidney disease, or unspecified chronic kidney disease; N18.3 Chronic kidney disease, stage 3 (moderate); E11.22 Type 2 diabetes mellitus with diabetic chronic kidney disease; E66.9 Obesity, unspecified; Z88.5 Allergy status to narcotic agent; Z91.041 Radiographic dye allergy status; Z88.8 Allergy status to other drugs, medicaments and biological substances; Z91.011 Allergy to milk products; Z88.2 Allergy status to sulfonamides; Z79.899 Other long term (current) drug therapy; Z87.891 Personal history of nicotine dependence
CPT/HCPCS: 36415; 80053; 85025; 96372; 99283; G0480; J0595; J2550

== ENCOUNTER 2017-07-19 20:19 | Observation (INO) | payer MEDICARE, BC, OTHER ==
[2017-07-19] MEDS ORDERED: Bumetanide 1 MG/4 ML MDV IVPUSH ONE (20:48)
[2017-07-19] MEDS ORDERED: Aspirin 81 MG Tab.Chew PO ONE (20:48)
--- NOTE | 2017-07-19 22:17 | EDM.PDOC ---
ED HPI GENERAL MEDICAL PROBLEM - General Chief Complaint: Respiratory Problem Stated Complaint: DIFFICULTY BREATHING Time Seen by Provider: 07/19/17 20:30 Source of Information: Reports: Patient History Limitations: Reports: No Limitations - History of Present Illness INITIAL COMMENTS - FREE TEXT/NARRATIVE: ED with c/o SOB for 2 days, Notes mild worsening. Weight 143 yesterday 157 today 151. States compliant with meds. Notes Metolazone not as effective as used to be. Swelling lower extremities constant but some increase than usual. - Related Data Allergies Allergy/AdvReac Type Severity Reaction Status Date / Time codeine Allergy Severe Rash Verified 06/20/17 11:22 Iodinated Contrast- Oral and Allergy Severe Other Verified 06/20/17 11:22 IV Dye [Iodinated Contrast Media - IV Dye] Penicillins Allergy Severe Hives Verified 07/19/17 20:40 pentazocine [From Talwin] Allergy Severe Delusions Verified 07/19/17 20:40 Sulfa (Sulfonamide Allergy Severe Hives Verified 07/19/17 20:40 Antibiotics) sulfamethoxazole Allergy Severe Hives Verified 07/19/17 20:40 [From Bactrim] trimethoprim [From Bactrim] Allergy Severe Hives Verified 07/19/17 20:40 ampicillin Allergy Intermediate Hives Verified 07/19/17 20:40 atorvastatin calcium Allergy Mild Muscle Verified 07/19/17 20:40 [From Lipitor] Aches duloxetine HCl Allergy Mild Nausea Verified 07/19/17 20:40 [From Cymbalta] indomethacin [From Indocin] Allergy Mild Headache Verified 07/19/17 20:40 indomethacin sodium Allergy Mild Headache Verified 07/19/17 20:40 [From Indocin] lactose Allergy Mild Diarrhea Verified 07/19/17 20:40 lisinopril Allergy Mild Cough Verified 07/19/17 20:40 metolazone Allergy Mild Muscle Verified 07/19/17 20:40 Aches metoprolol Allergy Mild Fatigue Verified 07/19/17 20:40 oxycodone [Oxycodone] Allergy Mild Other Verified 07/19/17 20:40 pravastatin Allergy Mild Muscle Verified 07/19/17 20:40 Aches simvastatin Allergy Mild Muscle Verified 07/19/17 20:40 Aches spironolactone Allergy Mild Headache Verified 07/19/17 20:40 tuberculin, purified protein Allergy Mild Rash Verified 07/19/17 20:40 deriva [tuberculin,purif.prot.deriv.] clonazepam [From Klonopin] Allergy Other Verified 07/19/17 20:40 hydrochlorothiazide Allergy Lethargy Verified 07/19/17 20:40 tetanus toxoid, adsorbed Allergy Other Verified 07/19/17 20:40 zoster vaccine live Allergy Cannot Verified 07/19/17 20:40 Remember flannel Allergy Burning Uncoded 07/19/17 20:40 Home Meds: Home Meds Isosorbide Mononitrate [Imdur] 60 mg PO DAILY 11/25/13 [History] LORazepam [Ativan] 0.5 mg PO BEDTIME 11/25/13 [History] Levothyroxine Sodium [Synthroid] 150 mcg PO ACBREAKFAST 11/25/13 [History] Nitroglycerin [Nitrostat] 0.4 mg SL Q5M PRN MDD 3 11/25/13 [History] Psyllium [Metamucil SF] 1 tbsp PO DAILY PRN 11/25/13 [History] amLODIPine Besylate [Amlodipine Besylate] 2.5 mg PO DAILY 11/25/13 [History] Acetaminophen 650 mg PO Q6HR PRN 03/28/15 [History] Albuterol [Proventil HFA] 2 inh INH ASDIRECTED PRN 03/28/15 [History] Potassium Chloride 40 meq PO TID 03/28/15 [History] Cholecalciferol (Vitamin D3) [Vitamin D3] 1,000 units PO TID 03/29/15 [History] Carvedilol [Coreg] 6.25 mg PO BIDMEALS 03/27/16 [History] Cyanocobalamin (Vitamin B12) [Vitamin B12] 100 mcg PO DAILY 03/27/16 [History] Hypromellose/PF [Retaine Hpmc 0.3% Eye Drops] 1 drop EYEBOTH Q4H PRN 03/27/16 [ History] Meclizine [Antivert] 25 mg PO QID PRN 03/27/16 [History] Pantoprazole Sodium [Protonix] 40 mg PO DAILY 03/27/16 [History] Docusate Sodium 100 mg PO BID 08/30/16 [History] Insulin Aspart [NovoLOG] 30 unit SUBCUT ACLUNCH pen 11/08/17 [Rx] Insulin Aspart [NovoLOG] 38 unit SUBCUT ACDINNER pen 01/01/17 [Rx] Insulin Detemir [Levemir] 62 unit SUBCUT BEDTIME pen 01/01/17 [Rx] Insulin Detemir [Levemir] 75 unit SUBCUT DAILY pen 01/01/17 [Rx] Albuterol Sulfate 2.5 mg IH Q6H PRN 02/05/17 [History] Allopurinol [Zyloprim] 100 mg PO BID 05/02/17 [History] Bumetanide [Bumex] 2 mg PO TID 05/02/17 [History] Calcitriol 0.25 mcg PO Q48H 05/02/17 [History] Insulin Aspart [NovoLOG] 26 unit SUBCUT ACBREAKFAST 05/02/17 [History] Warfarin [Coumadin] 2.5 mg PO DAILY 05/02/17 [History] traMADol [Ultram] 50 mg PO DAILY PRN 05/02/17 [History] Past Medical History HEENT History: Reports: Cataract, Impaired Vision, Other (See Below) Other HEENT History: HEARING LOSS TOTAL-RIGHT PARTIAL-LEFT, WEARS BILAT HEARING AIDES Cardiovascular History: Reports: Afib, CAD, Heart Failure, Hypertension, SC, Stents, Other (See Below) Other Cardiovascular History: CAROTID ARTERY DISEASE. HEART FAILURE WITH PRESERVED EJECTION FRACTION. HYPERTENSIVE HEART DISEASE. 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 SUBDURAL HEMATOMA. lorazepam controls headaches from shunt Psychiatric History: Reports: Depression Endocrine/Metabolic History: Reports: Diabetes, Type II, Hypothyroidism, Obesity /BMI 30+, Osteoporosis, Vitamin D Deficiency Hematologic History: Reports: Blood Transfusion(s) Immunologic History: Reports: None Oncologic (Cancer) History: Reports: Malignant Melanoma Dermatologic History: Reports: None - Infectious Disease History Infectious Disease History: Reports: Chicken Pox, Measles, Mumps, Shingles - Past Surgical History Head Surgeries/Procedures: Reports: Shunt HEENT Surgical History: Reports: Adenoidectomy, Cataract Surgery, Tonsillectomy Cardiovascular Surgical History: Reports: Carotid Endarterectomy, Coronary Artery Stent Respiratory Surgical History: Reports: None GI Surgical History: Reports: Appendectomy, Colonoscopy, EGD, Polypectomy, Other (See Below) Other GI Surgeries/Procedures: large colon mostly resected - annotated redundant bowel Female Surgical History: Reports: Breast Biopsy, Cystectomy, Hysterectomy, Salpingo-Oophorectomy, Other (See Below) Other Female Surgeries/Procedures: breast cyst Endocrine Surgical History: Reports: None Neurological Surgical History: Reports: Other (See Below) Other Neurological Surgeries/Procedures: spinal tap and 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) Musculoskeletal Surgical History: Reports: None Oncologic Surgical History: Reports: Biopsy of Breast Dermatological Surgical History: Reports: None Social & Family History - Family History Family Medical History: Noncontributory - Tobacco Use Smoking Status *Q: Never Smoker Second Hand Smoke Exposure: No - Caffeine Use Caffeine Use: Reports: None - Recreational Drug Use Recreational Drug Use: No - Living Situation & Occupation Living situation: Reports: with Family Occupation: Retired ED ROS GENERAL - Review of Systems Review Of Systems: See Below Constitutional: Reports: No Symptoms HEENT: Reports: No Symptoms Respiratory: Reports: Shortness of Breath, Other (Tried albuterol but did not help). Denies: Wheezing GI/Abdominal: Reports: No Symptoms Musculoskeletal: Reports: No Symptoms Skin: Reports: No Symptoms Neurological: Reports: No Symptoms ED EXAM, GENERAL - Physical Exam Exam: See Below Exam Limited By: No Limitations General Appearance: Alert, Mild Distress, Obese Eye Exam: Bilateral Eye: EOMI, PERRL Ears: Normal External Exam, Normal TMs Nose: Normal Inspection Throat/Mouth: Normal Inspection, Normal Lips Head: Atraumatic, Normocephalic Neck: Normal Inspection, Full Range of Motion Respiratory/Chest: Normal Breath Sounds, Decreased Breath Sounds, Other (talk in full sentence with slight pause). No: Wheezing Cardiovascular: Normal Peripheral Pulses, Irregularly Irregular, Other (3+) GI/Abdominal: Normal Bowel Sounds Back Exam: Normal Inspection Extremities: Normal Inspection Neurological: Alert, Oriented, Normal Cognition Psychiatric: Normal Affect, Normal Mood Skin Exam: Warm, Dry, Intact, Normal Color EKG INTERPRETATION Rhythm: A-Fib Rate (Beats/Min): 100 Comparison: No Change Course - Vital Signs Last Recorded V/S: Last Vital Signs Temp 98.7 F 07/19/17 22:42 Pulse 117 H 07/19/17 22:42 Resp 24 H 07/19/17 22:42 BP 130/77 07/19/17 22:42 Pulse Ox 92 L 07/19/17 22:42 - Orders/Labs/Meds Orders: Medication Orders Acetaminophen (Tylenol) 650 mg PO Q6H PRN PRN Reason: Pain Albuterol (Proventil Neb Soln) 2.5 mg NEB Q6H PRN PRN Reason: Shortness of Breath Allopurinol (Zyloprim) 100 mg PO BID [facility] Amlodipine Besylate (Norvasc) 2.5 mg PO DAILY [facility] Calcitriol (Rocaltrol) 0.25 mcg PO Q48H [facility] Carvedilol (Coreg) 6.25 mg PO BIDMEALS [facility] Cholecalciferol (Vitamin D3) 1,000 units PO TID [facility] Cyanocobalamin (Vitamin B12) 100 mcg PO DAILY [facility] Docusate Sodium (Colace) 100 mg PO BID [facility] Furosemide (Lasix) 80 mg IVPUSH Q12HR [facility] Insulin Aspart (Novolog) 0 unit SUBCUT TIDAC [facility]; Protocol Insulin Aspart (Novolog) 0 unit SUBCUT WITHBREAKFAST [facility] Insulin Aspart (Novolog) 0 unit SUBCUT WITHLUNCH [facility] Insulin Aspart (Novolog) 0 unit SUBCUT ACDINNER [facility] Insulin Detemir (Levemir) 62 unit SUBCUT BEDTIME [facility] Last Admin: 07/20/17 00:58 Dose: 62 units Insulin Detemir (Levemir) 0 unit SUBCUT DAILY [facility] Isosorbide Mononitrate (Imdur) 60 mg PO DAILY [facility] Levothyroxine Sodium (Levothyroxine) 150 mcg PO ACBREAKFAST [facility] Lorazepam (Ativan) 0.5 mg PO BEDTIME [facility] Nitroglycerin (Nitrostat) 0.4 mg SL Q5M PRN PRN Reason: Chest Pain Non-Formulary Medication (Hypromellose/Pf [Retaine Hpmc 0.3% Eye Drops]) 1 drop EYEBOTH Q4H PRN PRN Reason: Dry Eyes Pantoprazole Sodium (Protonix) 40 mg PO DAILY [facility] Tramadol HCl (Ultram) 50 mg PO DAILY PRN PRN Reason: Pain Last Admin: 07/20/17 00:56 Dose: 50 mg Warfarin Sodium (Coumadin) 2.5 mg PO DAILY [facility] Labs: Laboratory Tests 07/19/17 07/19/17 07/19/17 Range/Units 21:10 21:10 21:10 WBC 11.9 H (5.0-10.0) 10^3/uL RBC 3.86 L (4.2-5.4) 10^6/uL Hgb 12.2 (12.0-16.0) g/dL Hct 38.4 (37.0-47.0) % MCV 99.5 (80-100) fL MCH 31.6 (27.0-34.0) pg MCHC 31.8 L (33.0-35.0) g/dL Plt Count 174 (150-450) 10^3/uL Neut % (Auto) 70.9 (42.2-75.2) % Lymph % (Auto) 9.7 L (20.5-50.1) % [place] % (Auto) 14.7 H (2-8) % Eos % (Auto) 4.3 H (1.0-3.0) % Baso % (Auto) 0.4 (0.0-1.0) % PT 13.7 H D (9.0-12.0) SEC INR 1.4 H (0.9-1.2) Sodium 135 (135-145) mmol/L Potassium 4.7 (3.6-5.0) mmol/L Chloride 104 (101-111) mmol/L Carbon Dioxide 23.0 (21.0-31.0) mmol/L Anion Gap 12.7 BUN 17 (7-18) mg/dL Creatinine 1.2 (0.6-1.3) mg/dL Est Cr Clr Drug Dosing 31.05 mL/min Estimated GFR (MDRD) 44 BUN/Creatinine Ratio 14.16 Glucose 373 H (74-105) mg/dL Calcium 9.3 (8.4-10.2) mg/dl Magnesium 1.9 (1.8-2.5) mg/dL Total Bilirubin 0.6 (0.2-1.0) mg/dL AST 67 H (10-42) IU/L ALT 45 (10-60) IU/L Alkaline Phosphatase 180 H (42-121) IU/L CK-MB (CK-2) (0.4-4.7) ng/mL Troponin I 0.03 H* (0.00-0.02) ng/ml B-Natriuretic Peptide 430 H (0-100) pg/ml Total Protein 6.8 (6.7-8.2) g/dl Albumin 3.5 (3.2-5.5) g/dl Globulin 3.3 Albumin/Globulin Ratio 1.06 Urine Color (YELLOW) Urine Appearance (CLEAR) Urine pH (5.0-9.0) Ur Specific [place] (1.005-1.030) Urine Protein (NEGATIVE) Urine Glucose (UA) (NEGATIVE) Urine Ketones (NEGATIVE) Urine Occult Blood (NEGATIVE) Urine Nitrite (NEGATIVE) Urine Bilirubin (NEGATIVE) Urine Urobilinogen (0.2-1.0) mg/dL Ur Leukocyte Esterase (NEGATIVE) Urine RBC /HPF Urine WBC (0-5/HPF) /HPF Ur Epithelial Cells /HPF Urine Bacteria (0-FEW/HPF) /HPF 07/19/17 07/19/17 Range/Units 21:10 21:19 WBC (5.0-10.0) 10^3/uL RBC (4.2-5.4) 10^6/uL Hgb (12.0-16.0) g/dL Hct (37.0-47.0) % MCV (80-100) fL MCH (27.0-34.0) pg MCHC (33.0-35.0) g/dL Plt Count (150-450) 10^3/uL Neut % (Auto) (42.2-75.2) % Lymph % (Auto) (20.5-50.1) % [place] % (Auto) (2-8) % Eos % (Auto) (1.0-3.0) % Baso % (Auto) (0.0-1.0) % PT (9.0-12.0) SEC INR (0.9-1.2) Sodium (135-145) mmol/L Potassium (3.6-5.0) mmol/L Chloride (101-111) mmol/L Carbon Dioxide (21.0-31.0) mmol/L Anion Gap BUN (7-18) mg/dL Creatinine (0.6-1.3) mg/dL Est Cr Clr Drug Dosing mL/min Estimated GFR (MDRD) BUN/Creatinine Ratio Glucose (74-105) mg/dL Calcium (8.4-10.2) mg/dl Magnesium (1.8-2.5) mg/dL Total Bilirubin (0.2-1.0) mg/dL AST (10-42) IU/L ALT (10-60) IU/L Alkaline Phosphatase (42-121) IU/L CK-MB (CK-2) 1.90 (0.4-4.7) ng/mL Troponin I (0.00-0.02) ng/ml B-Natriuretic Peptide (0-100) pg/ml Total Protein (6.7-8.2) g/dl Albumin (3.2-5.5) g/dl Globulin Albumin/Globulin Ratio Urine Color Yellow (YELLOW) Urine Appearance Clear (CLEAR) Urine pH 5.5 (5.0-9.0) Ur Specific [place] 1.010 (1.005-1.030) Urine Protein Negative (NEGATIVE) Urine Glucose (UA) 500 H (NEGATIVE) Urine Ketones Negative (NEGATIVE) Urine Occult Blood Trace-intact H (NEGATIVE) Urine Nitrite Negative (NEGATIVE) Urine Bilirubin Negative (NEGATIVE) Urine Urobilinogen 0.2 (0.2-1.0) mg/dL Ur Leukocyte Esterase Negative (NEGATIVE) Urine RBC 0-5 /HPF Urine WBC 0-5 (0-5/HPF) /HPF Ur Epithelial Cells Few /HPF Urine Bacteria Few (0-FEW/HPF) /HPF Meds: Medications Generic Name Dose Route Start Last Admin Trade Name Freq PRN Reason Stop Dose Admin Acetaminophen 650 mg 07/20/17 00:13 Tylenol PO Q6H PRN Pain Albuterol 2.5 mg 07/20/17 00:13 Proventil Neb Soln NEB Q6H PRN Shortness of Breath Allopurinol 100 mg 07/20/17 09:00 Zyloprim PO BID [facility] Amlodipine Besylate 2.5 mg 07/20/17 09:00 Norvasc PO DAILY [facility] Calcitriol 0.25 mcg 07/20/17 00:15 Rocaltrol PO Q48H [facility] Carvedilol 6.25 mg 07/20/17 08:00 Coreg PO BIDMEALS [facility] Cholecalciferol 1,000 units 07/20/17 09:00 Vitamin D3 PO TID [facility] Cyanocobalamin 100 mcg 07/20/17 09:00 Vitamin B12 PO DAILY [facility] Docusate Sodium 100 mg 07/20/17 09:00 Colace PO BID [facility] Furosemide 80 mg 07/20/17 09:00 Lasix IVPUSH Q12HR [facility] Insulin Aspart 0 unit 07/20/17 08:00 Novolog SUBCUT TIDAC [facility] Protocol Insulin Aspart 0 unit 07/20/17 08:00 Novolog SUBCUT WITHBREAKFAST [facility] Insulin Aspart 0 unit 07/20/17 12:00 Novolog SUBCUT WITHLUNCH [facility] Insulin Aspart 0 unit 07/20/17 17:00 Novolog SUBCUT ACDINNER [facility] Insulin Detemir 62 unit 07/20/17 00:15 07/20/17 00:58 Levemir SUBCUT 62 units BEDTIME [facility] Administration Insulin Detemir 0 unit 07/20/17 09:00 Levemir SUBCUT DAILY [facility] Isosorbide Mononitrate 60 mg 07/20/17 09:00 Imdur PO DAILY [facility] Levothyroxine Sodium 150 mcg 07/20/17 06:00 Levothyroxine PO ACBREAKFAST [facility] Lorazepam 0.5 mg 07/20/17 21:00 Ativan PO BEDTIME [facility] Nitroglycerin 0.4 mg 07/20/17 00:13 Nitrostat SL Q5M PRN Chest Pain Non-Formulary Medication 1 drop 07/20/17 00:13 Hypromellose/Pf [Retaine Hpmc 0.3% Eye Drops] EYEBOTH Q4H PRN Dry Eyes Pantoprazole Sodium 40 mg 07/20/17 09:00 Protonix PO DAILY [facility] Tramadol HCl 50 mg 07/20/17 00:13 07/20/17 00:56 Ultram PO 50 mg DAILY PRN Administration Pain Warfarin Sodium 2.5 mg 07/20/17 09:00 Coumadin PO DAILY [facility] Discontinued Medications Generic Name Dose Route Start Last Admin Trade Name Freq PRN Reason Stop Dose Admin Aspirin 324 mg 07/19/17 20:48 07/19/17 20:57 Aspirin PO 07/19/17 20:49 324 mg ONETIME ONE Administration Bumetanide 1 mg 07/19/17 20:48 07/19/17 21:01 Bumex IVPUSH 07/19/17 20:49 1 mg ONETIME ONE Administration Furosemide 40 mg 07/20/17 00:06 07/20/17 00:57 Lasix IVPUSH 07/20/17 00:07 40 mg NOW ONE Administration Furosemide 40 mg 07/20/17 09:00 Lasix IVPUSH BID [facility] - Radiology Interpretation Free Text/Narrative:: CXR mild vascular congestion - Re-Assessments/Exams Free Text/Narrative Re-Assessment/Exam: Mild improvement following Bumex, resting on right side. Voided x 2. Breath sound diminished. TC Dr Mueller, accepting for observation admission [facility] for further management CHF Departure - Departure Time of Disposition: 22:35 Disposition: Refer to Observation Condition: Good Clinical Impression: Subtherapeutic anticoagulation, Chronic atrial fibrillation, Hyperglycemia CHF (congestive heart failure) Qualifiers: Heart failure type: unspecified Heart failure chronicity: acute on chronic Qualified Code(s): I50.9 - Heart failure, unspecified Dyspnea Qualifiers: Dyspnea type: shortness of breath Qualified Code(s): R06.02 - Shortness of breath; R06.00 - Dyspnea, unspecified; R06.01 - Orthopnea - Discharge Information
[2017-07-20] MEDS ORDERED: Furosemide 40 MG/4 ML VIAL IVPUSH ONE (00:06)
[2017-07-20] MEDS ORDERED: Nitroglycerin 0.4 MG Tab.SL SL PRN (00:13)
[2017-07-20] MEDS ORDERED: Albuterol 0.083% 2.5 MG/3 ML Neb Soln NEB PRN (00:13)
[2017-07-20] MEDS ORDERED: HYPROMELLOSE EYEBOTH PRN (00:13)
[2017-07-20] MEDS ORDERED: Acetaminophen 325 MG Tab PO PRN (00:13)
--- NOTE | 2017-07-20 00:24 | PCM.HP ---
H&P History of Present Illness - General Date of Service: 07/20/17 Admit Problem/Dx: Admission Diagnosis/Problem Admission Diagnosis/Problem Acute diastolic congestive heart failure Source of Information: Patient History Limitations: Reports: No Limitations - History of Present Illness Initial Comments - Free Text/Narative: 76-year-old female with a past medical history of hypertension, diastolic heart failure, atrial fibrillation on Coumadin, diabetes mellitus, normal pressure hydrocephalus status post ELECTRIC BATH ATTENDANT 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 Shortness of breath stated 2 days ago, was with exertion. Associated with mild chest pain, however this has resolved. She has also noted leg swelling, weight gain about 15 pounds in the last week Claims compliance to diet, however admits noncompliance to fluid restriction. Social history: Nonsmoker Onset of Symptoms: Reports: Gradual Associated Symptoms: Reports: Shortness of Breath - Related Data Allergies/Adverse Reactions: Allergies Allergy/AdvReac Type Severity Reaction Status Date / Time codeine Allergy Severe Rash Verified 06/20/17 11:22 Iodinated Contrast- Oral and Allergy Severe Other Verified 06/20/17 11:22 IV Dye [Iodinated Contrast Media - IV Dye] Penicillins Allergy Severe Hives Verified 07/19/17 20:40 pentazocine [From Talwin] Allergy Severe Delusions Verified 07/19/17 20:40 Sulfa (Sulfonamide Allergy Severe Hives Verified 07/19/17 20:40 Antibiotics) sulfamethoxazole Allergy Severe Hives Verified 07/19/17 20:40 [From Bactrim] trimethoprim [From Bactrim] Allergy Severe Hives Verified 07/19/17 20:40 ampicillin Allergy Intermediate Hives Verified 07/19/17 20:40 atorvastatin calcium Allergy Mild Muscle Verified 07/19/17 20:40 [From Lipitor] Aches duloxetine HCl Allergy Mild Nausea Verified 07/19/17 20:40 [From Cymbalta] indomethacin [From Indocin] Allergy Mild Headache Verified 07/19/17 20:40 indomethacin sodium Allergy Mild Headache Verified 07/19/17 20:40 [From Indocin] lactose Allergy Mild Diarrhea Verified 07/19/17 20:40 lisinopril Allergy Mild Cough Verified 07/19/17 20:40 metolazone Allergy Mild Muscle Verified 07/19/17 20:40 Aches metoprolol Allergy Mild Fatigue Verified 07/19/17 20:40 oxycodone [Oxycodone] Allergy Mild Other Verified 07/19/17 20:40 pravastatin Allergy Mild Muscle Verified 07/19/17 20:40 Aches simvastatin Allergy Mild Muscle Verified 07/19/17 20:40 Aches spironolactone Allergy Mild Headache Verified 07/19/17 20:40 tuberculin, purified protein Allergy Mild Rash Verified 07/19/17 20:40 deriva [tuberculin,purif.prot.deriv.] clonazepam [From Klonopin] Allergy Other Verified 07/19/17 20:40 hydrochlorothiazide Allergy Lethargy Verified 07/19/17 20:40 tetanus toxoid, adsorbed Allergy Other Verified 07/19/17 20:40 zoster vaccine live Allergy Cannot Verified 07/19/17 20:40 Remember flannel Allergy Burning Uncoded 07/19/17 20:40 Home Medications: Home Meds Isosorbide Mononitrate [Imdur] 60 mg PO DAILY 11/25/13 [History] LORazepam [Ativan] 0.5 mg PO BEDTIME 11/25/13 [History] Levothyroxine Sodium [Synthroid] 150 mcg PO ACBREAKFAST 11/25/13 [History] Nitroglycerin [Nitrostat] 0.4 mg SL Q5M PRN MDD 3 11/25/13 [History] Psyllium [Metamucil SF] 1 tbsp PO DAILY PRN 11/25/13 [History] amLODIPine Besylate [Amlodipine Besylate] 2.5 mg PO DAILY 11/25/13 [History] Acetaminophen 650 mg PO Q6HR PRN 03/28/15 [History] Albuterol [Proventil HFA] 2 inh INH ASDIRECTED PRN 03/28/15 [History] Potassium Chloride 40 meq PO TID 03/28/15 [History] Cholecalciferol (Vitamin D3) [Vitamin D3] 1,000 units PO TID 03/29/15 [History] Carvedilol [Coreg] 6.25 mg PO BIDMEALS 03/27/16 [History] Cyanocobalamin (Vitamin B12) [Vitamin B12] 100 mcg PO DAILY 03/27/16 [History] Hypromellose/PF [Retaine Hpmc 0.3% Eye Drops] 1 drop EYEBOTH Q4H PRN 03/27/16 [ History] Meclizine [Antivert] 25 mg PO QID PRN 03/27/16 [History] Pantoprazole Sodium [Protonix] 40 mg PO DAILY 03/27/16 [History] Docusate Sodium 100 mg PO BID 08/30/16 [History] Insulin Aspart [NovoLOG] 30 unit SUBCUT ACLUNCH pen 01/01/17 [Rx] Insulin Aspart [NovoLOG] 38 unit SUBCUT ACDINNER pen 01/01/17 [Rx] Insulin Detemir [Levemir] 62 unit SUBCUT BEDTIME pen 01/01/17 [Rx] Insulin Detemir [Levemir] 75 unit SUBCUT DAILY pen 01/01/17 [Rx] Albuterol Sulfate 2.5 mg IH Q6H PRN 02/05/17 [History] Allopurinol [Zyloprim] 100 mg PO BID 05/02/17 [History] Bumetanide [Bumex] 2 mg PO TID 05/02/17 [History] Calcitriol 0.25 mcg PO Q48H 05/02/17 [History] Insulin Aspart [NovoLOG] 26 unit SUBCUT ACBREAKFAST 05/02/17 [History] Warfarin [Coumadin] 2.5 mg PO DAILY 05/02/17 [History] traMADol [Ultram] 50 mg PO DAILY PRN 05/02/17 [History] Past Medical History HEENT History: Reports: Cataract, Impaired Vision, Other (See Below) Other HEENT History: HEARING LOSS TOTAL-RIGHT PARTIAL-LEFT, WEARS BILAT HEARING AIDES Cardiovascular History: Reports: Afib, CAD, Heart Failure, Hypertension, MD, Stents, Other (See Below) Other Cardiovascular History: CAROTID ARTERY DISEASE. HEART FAILURE WITH PRESERVED EJECTION FRACTION. HYPERTENSIVE HEART DISEASE. TIA Respiratory History: Reports: Asthma, Bronchitis, Recurrent, Sleep Apnea Gastrointestinal History: Reports: Chronic Constipation, GERD, Hemorrhoids, Irritable Bowel Syndrome Genitourinary History: Reports: Chronic Renal Insuffiency, Renal Calculus, Other (See Below) Other Genitourinary History: CKD STAGE III [employer] LAB[employer]ATORY History: Reports: Other (See Below) Other OB/BYN History: UTERUS WAS ADHESED TO HER SPINE Musculoskeletal History: Reports: Back Pain, Chronic, Fracture, Osteoarthritis Other Musculoskeletal History: FRACTURED ARM WHEN SHE WAS YOUNG Neurological History: Reports: TIA, Other (See Below) Other Neuro History: NORMAL PRESSURE HYDROCEPHALUS. SUBDURAL HEMATOMA. lorazepam controls headaches from shunt Psychiatric History: Reports: Depression Endocrine/Metabolic History: Reports: Diabetes, Type II, Hypothyroidism, Obesity /BMI 30+, Osteoporosis, Vitamin D Deficiency Hematologic History: Reports: Blood Transfusion(s) Immunologic History: Reports: None Oncologic (Cancer) History: Reports: Malignant Melanoma Dermatologic History: Reports: None - Infectious Disease History Infectious Disease History: Reports: Chicken Pox, Measles, Mumps, Shingles - Past Surgical History Head Surgeries/Procedures: Reports: Shunt HEENT Surgical History: Reports: Adenoidectomy, Cataract Surgery, Tonsillectomy Cardiovascular Surgical History: Reports: Carotid Endarterectomy, Coronary Artery Stent Respiratory Surgical History: Reports: None GI Surgical History: Reports: Appendectomy, Colonoscopy, EGD, Polypectomy, Other (See Below) Other GI Surgeries/Procedures: large colon mostly resected - annotated redundant bowel Female Surgical History: Reports: Breast Biopsy, Cystectomy, Hysterectomy, Salpingo-Oophorectomy, Other (See Below) Other Female Surgeries/Procedures: breast cyst Endocrine Surgical History: Reports: None Neurological Surgical History: Reports: Other (See Below) Other Neurological Surgeries/Procedures: spinal tap and ELECTRIC BATH ATTENDANT shunt (2007) Musculoskeletal Surgical History: Reports: None Oncologic Surgical History: Reports: Biopsy of Breast Dermatological Surgical History: Reports: None Social & Family History - Family History Family Medical History: Noncontributory - Tobacco Use Smoking Status *Q: Never Smoker Second Hand Smoke Exposure: No - Caffeine Use Caffeine Use: Reports: Coffee - Recreational Drug Use Recreational Drug Use: No - Living Situation & Occupation Living situation: Reports: with Family Occupation: Retired H&P Review of Systems - Review of Systems: Review Of Systems: See Below HEENT: Reports: No Symptoms Pulmonary: Reports: Shortness of Breath Cardiovascular: Reports: Dyspnea on Exertion Gastrointestinal: Reports: No Symptoms Genitourinary: Reports: No Symptoms Musculoskeletal: Reports: No Symptoms Neurological: Reports: No Symptoms Exam - Exam Exam: See Below - Vital Signs Vital Signs: Last Vital Signs Temp 37.1 C 07/19/17 22:42 Pulse 117 H 07/19/17 22:42 Resp 24 H 07/19/17 22:42 BP 130/77 05/26/18 22:42 Pulse Ox 92 L 07/19/17 22:42 Weight: 115.303 kg - Exam General: Alert, Oriented HEENT: Conjunctiva Clear, EOMI Neck: Supple, Trachea Midline Lungs: Rales Cardiovascular: Regular Rate, Regular Rhythm GI/Abdominal Exam: Normal Bowel Sounds - Patient Data Lab Results Last 24 hrs: Laboratory Results - last 24 hr 07/19/17 07/19/17 07/19/17 Range/Units 21:10 21:10 21:10 WBC 11.9 H (5.0-10.0) 10^3/uL RBC 3.86 L (4.2-5.4) 10^6/uL Hgb 12.2 (12.0-16.0) g/dL Hct 38.4 (37.0-47.0) % MCV 99.5 (80-100) fL MCH 31.6 (27.0-34.0) pg MCHC 31.8 L (33.0-35.0) g/dL Plt Count 174 (150-450) 10^3/uL Neut % (Auto) 70.9 (42.2-75.2) % Lymph % (Auto) 9.7 L (20.5-50.1) % [place] % (Auto) 14.7 H (2-8) % Eos % (Auto) 4.3 H (1.0-3.0) % Baso % (Auto) 0.4 (0.0-1.0) % PT 13.7 H D (9.0-12.0) SEC INR 1.4 H (0.9-1.2) Sodium 135 (135-145) mmol/L Potassium 4.7 (3.6-5.0) mmol/L Chloride 104 (101-111) mmol/L Carbon Dioxide 23.0 (21.0-31.0) mmol/L Anion Gap 12.7 BUN 17 (7-18) mg/dL Creatinine 1.2 (0.6-1.3) mg/dL Est Cr Clr Drug Dosing 31.05 mL/min Estimated GFR (MDRD) 44 BUN/Creatinine Ratio 14.16 Glucose 373 H (74-105) mg/dL POC Glucose (83-110) mg/dl Calcium 9.3 (8.4-10.2) mg/dl Magnesium 1.9 (1.8-2.5) mg/dL Total Bilirubin 0.6 (0.2-1.0) mg/dL AST 67 H (10-42) IU/L ALT 45 (10-60) IU/L Alkaline Phosphatase 180 H (42-121) IU/L CK-MB (CK-2) (0.4-4.7) ng/mL Troponin I 0.03 H* (0.00-0.02) ng/ml B-Natriuretic Peptide 430 H (0-100) pg/ml Total Protein 6.8 (6.7-8.2) g/dl Albumin 3.5 (3.2-5.5) g/dl Globulin 3.3 Albumin/Globulin Ratio 1.06 Urine Color (YELLOW) Urine Appearance (CLEAR) Urine pH (5.0-9.0) Ur Specific [place] (1.005-1.030) Urine Protein (NEGATIVE) Urine Glucose (UA) (NEGATIVE) Urine Ketones (NEGATIVE) Urine Occult Blood (NEGATIVE) Urine Nitrite (NEGATIVE) Urine Bilirubin (NEGATIVE) Urine Urobilinogen (0.2-1.0) mg/dL Ur Leukocyte Esterase (NEGATIVE) Urine RBC /HPF Urine WBC (0-5/HPF) /HPF Ur Epithelial Cells /HPF Urine Bacteria (0-FEW/HPF) /HPF 07/19/17 07/19/17 07/19/17 Range/Units 21:10 21:19 22:54 WBC (5.0-10.0) 10^3/uL RBC (4.2-5.4) 10^6/uL Hgb (12.0-16.0) g/dL Hct (37.0-47.0) % MCV (80-100) fL MCH (27.0-34.0) pg MCHC (33.0-35.0) g/dL Plt Count (150-450) 10^3/uL Neut % (Auto) (42.2-75.2) % Lymph % (Auto) (20.5-50.1) % [place] % (Auto) (2-8) % Eos % (Auto) (1.0-3.0) % Baso % (Auto) (0.0-1.0) % PT (9.0-12.0) SEC INR (0.9-1.2) Sodium (135-145) mmol/L Potassium (3.6-5.0) mmol/L Chloride (101-111) mmol/L Carbon Dioxide (21.0-31.0) mmol/L Anion Gap BUN (7-18) mg/dL Creatinine (0.6-1.3) mg/dL Est Cr Clr Drug Dosing mL/min Estimated GFR (MDRD) BUN/Creatinine Ratio Glucose (74-105) mg/dL POC Glucose 369 H (83-110) mg/dl Calcium (8.4-10.2) mg/dl Magnesium (1.8-2.5) mg/dL Total Bilirubin (0.2-1.0) mg/dL AST (10-42) IU/L ALT (10-60) IU/L Alkaline Phosphatase (42-121) IU/L CK-MB (CK-2) 1.90 (0.4-4.7) ng/mL Troponin I (0.00-0.02) ng/ml B-Natriuretic Peptide (0-100) pg/ml Total Protein (6.7-8.2) g/dl Albumin (3.2-5.5) g/dl Globulin Albumin/Globulin Ratio Urine Color Yellow (YELLOW) Urine Appearance Clear (CLEAR) Urine pH 5.5 (5.0-9.0) Ur Specific [place] 1.010 (1.005-1.030) Urine Protein Negative (NEGATIVE) Urine Glucose (UA) 500 H (NEGATIVE) Urine Ketones Negative (NEGATIVE) Urine Occult Blood Trace-intact H (NEGATIVE) Urine Nitrite Negative (NEGATIVE) Urine Bilirubin Negative (NEGATIVE) Urine Urobilinogen 0.2 (0.2-1.0) mg/dL Ur Leukocyte Esterase Negative (NEGATIVE) Urine RBC 0-5 /HPF Urine WBC 0-5 (0-5/HPF) /HPF Ur Epithelial Cells Few /HPF Urine Bacteria Few (0-FEW/HPF) /HPF Result Diagrams: 07/19/17 21:10 07/19/17 21:10 Problem List Initiated/Reviewed/Updated: Yes Orders Last 24hrs: Active Orders 24 hr Category Date Time Status Patient Status [ADT] Routine ADT 07/20/17 00:07 Ordered Ambulate [RC] ASDIRECTED Care 07/20/17 00:07 Ordered Blood Glucose Check, Bedside [RC] WITHMEALSANDBED Care 07/20/17 00:07 Ordered Height and Weight [RC] DAILY Care 07/20/17 00:07 Ordered Intake and Output [RC] QSHIFT Care 07/20/17 00:09 Ordered Oxygen Therapy [RC] PRN Care 07/20/17 00:07 Ordered Up With Assistance [RC] ASDIRECTED Care 07/20/17 00:07 Ordered Up to Chair [RC] ASDIRECTED Care 07/20/17 00:07 Ordered VTE/DVT Education [RC] PER UNIT ROUTINE Care 07/20/17 00:07 Ordered Vital Signs [RC] Q4H Care 07/20/17 00:07 Ordered 2 Gram Sodium Diet [DIET] Diet 07/20/17 Breakfast Active Consistent Carbohydrate Diet [DIET] Diet 07/20/17 Breakfast Active Fluid Restriction [DIET] Diet 07/20/17 Breakfast Ordered Heart Healthy Diet [DIET] Diet 07/20/17 Breakfast Active BASIC METABOLIC PANEL,BMP [CHEM] AM Lab 07/20/17 05:11 Ordered CBC WITH AUTO DIFF [HEME] AM Lab 07/20/17 05:11 Ordered MAGNESIUM [CHEM] AM Lab 07/20/17 05:11 Ordered PHOSPHORUS [CHEM] AM Lab 07/20/17 05:11 Ordered TROPONIN I [CHEM] AM Lab 07/20/17 05:11 Ordered Acetaminophen [Tylenol] Med 07/20/17 00:13 Ordered 650 mg PO Q6HR PRN Albuterol [Proventil Neb Soln] Med 07/20/17 00:13 Ordered 2.5 mg NEB Q6H PRN Allopurinol [Zyloprim] Med 07/20/17 09:00 Ordered 100 mg PO BID Calcitriol [Rocaltrol] Med 07/20/17 00:15 Ordered 0.25 mcg PO Q48H Carvedilol [Coreg] Med 07/20/17 08:00 Ordered 6.25 mg PO BIDMEALS Cholecalciferol (Vitamin D3) [Vitamin D3] Med 07/20/17 09:00 Ordered 1,000 units PO TID Cyanocobalamin (Vitamin B12) [Vitamin B12] Med 07/20/17 09:00 Ordered 100 mcg PO DAILY Docusate Sodium [Colace] Med 07/20/17 09:00 Ordered 100 mg PO BID Furosemide [Lasix] Med 07/20/17 09:00 Ordered 40 mg IVPUSH BID Furosemide [Lasix] Med 07/20/17 00:06 Once 40 mg IVPUSH NOW ONE Hypromellose/PF [Retaine Hpmc 0.3% Eye Drops] Med 07/20/17 00:13 Ordered 1 drop EYEBOTH Q4H PRN Insulin Aspart [NovoLOG] Med 07/20/17 06:00 Ordered 26 unit SUBCUT ACBREAKFAST Insulin Aspart [NovoLOG] Med 07/20/17 11:00 Ordered 30 unit SUBCUT ACLUNCH Insulin Aspart [NovoLOG] Med 07/20/17 17:00 Ordered 38 unit SUBCUT ACDINNER Insulin Aspart [NovoLOG] Med 07/20/17 08:00 Ordered See Protocol SUBCUT TIDAC Insulin Detemir [Levemir] Med 07/20/17 00:15 Ordered 62 unit SUBCUT BEDTIME Insulin Detemir [Levemir] Med 07/20/17 09:00 Ordered 75 unit SUBCUT DAILY Isosorbide Mononitrate [Imdur] Med 07/20/17 09:00 Ordered 60 mg PO DAILY LORazepam [Ativan] Med 07/20/17 21:00 Ordered 0.5 mg PO BEDTIME Levothyroxine Med 07/20/17 06:00 Ordered 150 mcg PO ACBREAKFAST Nitroglycerin [Nitrostat] Med 07/20/17 00:13 Ordered 0.4 mg SL Q5M PRN Pantoprazole [ProTONIX] Med 07/20/17 09:00 Ordered 40 mg PO DAILY Warfarin [Coumadin] Med 07/20/17 09:00 Ordered 2.5 mg PO DAILY amLODIPine Besylate [Amlodipine Besylate] Med 07/20/17 09:00 Ordered 2.5 mg PO DAILY traMADol [Ultram] Med 07/20/17 00:13 Ordered 50 mg PO DAILY PRN Resuscitation Status Routine Resus Stat 07/20/17 00:07 Ordered Medication Orders Acetaminophen (Tylenol) 650 mg PO Q6HR PRN PRN Reason: Pain Albuterol (Proventil Neb Soln) 2.5 mg NEB Q6H PRN PRN Reason: Shortness of Breath Allopurinol (Zyloprim) 100 mg PO BID [facility] Calcitriol (Rocaltrol) 0.25 mcg PO Q48H [facility] Carvedilol (Coreg) 6.25 mg PO BIDMEALS [facility] Docusate Sodium (Colace) 100 mg PO BID [facility] Furosemide (Lasix) 40 mg IVPUSH NOW ONE Stop: 07/20/17 00:07 Furosemide (Lasix) 40 mg IVPUSH BID [facility] Insulin Aspart (Novolog) 0 unit SUBCUT TIDAC [facility]; Protocol Insulin Aspart (Novolog) 26 unit SUBCUT ACBREAKFAST [facility] Insulin Aspart (Novolog) 30 unit SUBCUT ACLUNCH [facility] Insulin Aspart (Novolog) 38 unit SUBCUT ACDINNER [facility] Insulin Detemir (Levemir) 62 unit SUBCUT BEDTIME [facility] Insulin Detemir (Levemir) 75 unit SUBCUT DAILY [facility] Isosorbide Mononitrate (Imdur) 60 mg PO DAILY [facility] Levothyroxine Sodium (Levothyroxine) 150 mcg PO ACBREAKFAST [facility] Lorazepam (Ativan) 0.5 mg PO BEDTIME [facility] Nitroglycerin (Nitrostat) 0.4 mg SL Q5M PRN PRN Reason: Chest Pain Non-Formulary Medication (Amlodipine Besylate [Amlodipine Besylate]) 2.5 mg PO DAILY [facility] Non-Formulary Medication (Cholecalciferol (Vitamin D3) [Vitamin D3]) 1,000 units PO TID [facility] Non-Formulary Medication (Cyanocobalamin (Vitamin B12) [Vitamin B12]) 100 mcg PO DAILY [facility] Non-Formulary Medication (Hypromellose/Pf [Retaine Hpmc 0.3% Eye Drops]) 1 drop EYEBOTH Q4H PRN PRN Reason: Dry Eyes Pantoprazole Sodium (Protonix) 40 mg PO DAILY [facility] Tramadol HCl (Ultram) 50 mg PO DAILY PRN PRN Reason: Pain Warfarin Sodium (Coumadin) 2.5 mg PO DAILY [facility] Assessment/Plan Comment:: 76-year-old female with a past medical history of hypertension, diastolic heart failure, atrial fibrillation on Coumadin, diabetes mellitus, normal pressure hydrocephalus status post ELECTRIC BATH ATTENDANT 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 #Acute exacerbation of probably diastolic congestive heart failure. She is known to have congestive heart failure with preserved ejection fraction. Presented with shortness of breath, weight gainand elevated BNP Chest x-ray shows pulmonary edema IV Lasix 80 mg IV every 12 hours Fluid restriction 1.2 L per day Salt restriction 2 g per day Monitor electrolytes Strict I's and O's Follow-up with the cardiology clinic on discharge #Atrial fibrillation. Rate is controlled. Anticoagulation: Continue Coumadin #Diabetes mellitus. Carbohydrate controlled diet Accu-Cheks 3 times a day before meals and at bedtime insulin sliding scale Continue current insulin regimen #Hypertension. Continue home BP meds #DVT prophylaxis Continue Coumadin
[2017-07-20] MEDS: traMADol 50 MG Tab PO PRN ×2 (00:56→19:24)
[2017-07-20] MEDS: Insulin Detemir 100 Units/ML 3 ML Pen SUBCUT SCH ×3 (00:58→21:21)
[2017-07-20] MEDS: Levothyroxine 150 MCG Tab PO SCH (05:38)
[2017-07-20] MEDS ORDERED: Furosemide 40 MG/4 ML VIAL IVPUSH SCH (09:00)
[2017-07-20] MEDS: Carvedilol 6.25 MG Tab PO SCH ×2 (09:10→17:40)
[2017-07-20] MEDS: Furosemide 100 MG/10 ML SDV IVPUSH SCH ×2 (09:10→20:39)
[2017-07-20] MEDS: Cyanocobalamin (Vitamin B12) 100 MCG Tab PO SCH (09:11)
[2017-07-20] MEDS: amLODIPine 5 MG Tab PO SCH (09:11)
[2017-07-20] MEDS: Isosorbide Mononitrate 60 MG Tab.ER PO SCH (09:11)
[2017-07-20] MEDS: Allopurinol 100 MG Tab PO SCH ×2 (09:11→20:41)
[2017-07-20] MEDS: Docusate Sodium 100 MG Cap PO SCH ×2 (09:11→20:40)
[2017-07-20] MEDS: Cholecalciferol (Vitamin D3) 400 Unit Tab PO SCH ×3 (09:11→20:40)
[2017-07-20] MEDS: Pantoprazole 40 MG Tab.CR PO SCH (09:12)
[2017-07-20] MEDS: Insulin Aspart 100 Units/ML 3 ML Pen SUBCUT SCH ×6 (09:12→17:23)
[2017-07-20] MEDS ORDERED: Ondansetron 4 MG/2 ML SDV IV PRN (10:11)
[2017-07-20] MEDS: Warfarin 2.5 MG Tab PO SCH (13:17)
[2017-07-20] MEDS: Potassium Chloride 10 MEQ Tab.ER PO SCH ×2 (13:17→17:40)
[2017-07-20] MEDS: Calcitriol 0.25 MCG Cap PO SCH (13:23)
[2017-07-20] MEDS: LORazepam 0.5 MG Tab PO SCH (20:42)
[2017-07-21] MEDS: Levothyroxine 150 MCG Tab PO SCH (06:19)
[2017-07-21] MEDS: Cyanocobalamin (Vitamin B12) 100 MCG Tab PO SCH (09:29)
[2017-07-21] MEDS: Pantoprazole 40 MG Tab.CR PO SCH (09:29)
[2017-07-21] MEDS: Isosorbide Mononitrate 60 MG Tab.ER PO SCH (09:29)
[2017-07-21] MEDS: amLODIPine 5 MG Tab PO SCH (09:29)
[2017-07-21] MEDS: Docusate Sodium 100 MG Cap PO SCH ×2 (09:30→20:28)
[2017-07-21] MEDS: Allopurinol 100 MG Tab PO SCH ×2 (09:30→20:28)
[2017-07-21] MEDS: Cholecalciferol (Vitamin D3) 400 Unit Tab PO SCH ×3 (09:30→20:28)
[2017-07-21] MEDS: Carvedilol 6.25 MG Tab PO SCH ×2 (09:30→17:15)
[2017-07-21] MEDS: Insulin Detemir 100 Units/ML 3 ML Pen SUBCUT SCH ×2 (09:31→20:34)
[2017-07-21] MEDS: Furosemide 100 MG/10 ML SDV IVPUSH SCH ×2 (09:31→20:31)
[2017-07-21] MEDS: Insulin Aspart 100 Units/ML 3 ML Pen SUBCUT SCH ×6 (09:33→17:17)
--- NOTE | 2017-07-21 10:10 | PCM.PN ---
- General Info Date of Service: 07/21/17 Admission Dx/Problem (Free Text): Admission Diagnosis/Problem Admission Diagnosis/Problem Acute diastolic congestive heart failure Subjective Update: Patient is doing much better this morning. Shortness of breath has markedly improved No new complaints She has had more than 5 L of urine output since admission. - Review of Systems General: Reports: No Symptoms HEENT: Reports: No Symptoms Pulmonary: Reports: No Symptoms Cardiovascular: Reports: No Symptoms Gastrointestinal: Reports: No Symptoms Genitourinary: Reports: No Symptoms Musculoskeletal: Reports: No Symptoms - Patient Data Vitals - Most Recent: Last Vital Signs Temp 36.2 C 07/21/17 07:56 Pulse 88 07/21/17 09:30 Resp 20 07/21/17 07:56 BP 142/83 H 07/21/17 09:30 Pulse Ox 95 07/21/17 07:56 Weight - Most Recent: 110.79 kg I&O - Last 24 Hours: Intake & Output 07/20/17 07/21/17 07/21/17 22:59 06:59 14:59 Intake Total 168 50 Output Total 700 700 Balance -532 -650 Lab Results Last 24 Hours: Laboratory Results - last 24 hr 07/20/17 07/20/17 07/20/17 Range/Units 11:09 16:41 21:21 POC Glucose 126 H 85 120 H (83-110) mg/dl 07/21/17 Range/Units 07:36 POC Glucose 62 L (83-110) mg/dl Med Orders - Current: Current Medications Acetaminophen (Tylenol) 650 mg PO Q6H PRN PRN Reason: Pain Last Admin: 07/20/17 11:03 Dose: 650 mg Albuterol (Proventil Neb Soln) 2.5 mg NEB Q6H PRN PRN Reason: Shortness of Breath Allopurinol (Zyloprim) 100 mg PO BID [facility] Last Admin: 07/21/17 09:30 Dose: 100 mg Amlodipine Besylate (Norvasc) 2.5 mg PO DAILY [facility] Last Admin: 07/21/17 09:29 Dose: 2.5 mg Calcitriol (Rocaltrol) 0.25 mcg PO Q48H [facility] Last Admin: 07/20/17 13:23 Dose: 0.25 mcg Carvedilol (Coreg) 6.25 mg PO BIDMEALS [facility] Last Admin: 07/21/17 09:30 Dose: 6.25 mg Cholecalciferol (Vitamin D3) 1,000 units PO TID [facility] Last Admin: 07/21/17 09:30 Dose: 1,000 units Cyanocobalamin (Vitamin B12) 100 mcg PO DAILY [facility] Last Admin: 07/21/17 09:29 Dose: 100 mcg Docusate Sodium (Colace) 100 mg PO BID [facility] Last Admin: 07/21/17 09:30 Dose: 100 mg Furosemide (Lasix) 80 mg IVPUSH Q12HR [facility] Last Admin: 07/21/17 09:31 Dose: 80 mg Insulin Aspart (Novolog) 0 unit SUBCUT TIDAC [facility]; Protocol Last Admin: 07/21/17 09:33 Dose: Not Given Insulin Aspart (Novolog) 0 unit SUBCUT WITHBREAKFAST [facility] Last Admin: 07/21/17 09:33 Dose: Not Given Insulin Aspart (Novolog) 0 unit SUBCUT WITHLUNCH [facility] Last Admin: 07/20/17 13:18 Dose: 30 units Insulin Aspart (Novolog) 0 unit SUBCUT ACDINNER [facility] Last Admin: 07/20/17 17:23 Dose: Not Given Insulin Detemir (Levemir) 62 unit SUBCUT BEDTIME [facility] Last Admin: 07/20/17 21:21 Dose: 62 units Insulin Detemir (Levemir) 0 unit SUBCUT DAILY [facility] Last Admin: 07/21/17 09:31 Dose: 75 units Isosorbide Mononitrate (Imdur) 60 mg PO DAILY [facility] Last Admin: 07/21/17 09:29 Dose: 60 mg Levothyroxine Sodium (Levothyroxine) 150 mcg PO ACBREAKFAST [facility] Last Admin: 07/21/17 06:19 Dose: 150 mcg Lorazepam (Ativan) 0.5 mg PO BEDTIME [facility] Last Admin: 07/20/17 20:42 Dose: 0.5 mg Nitroglycerin (Nitrostat) 0.4 mg SL Q5M PRN PRN Reason: Chest Pain Non-Formulary Medication (Hypromellose/Pf [Retaine Hpmc 0.3% Eye Drops]) 1 drop EYEBOTH Q4H PRN PRN Reason: Dry Eyes Ondansetron HCl (Zofran) 4 mg IV Q4H PRN PRN Reason: Nausea/Vomiting Pantoprazole Sodium (Protonix) 40 mg PO DAILY [facility] Last Admin: 07/21/17 09:29 Dose: 40 mg Tramadol HCl (Ultram) 50 mg PO DAILY PRN PRN Reason: Pain Last Admin: 07/20/17 19:24 Dose: 50 mg Warfarin Sodium (Coumadin) 2.5 mg PO DAILY@1400 [facility] Last Admin: 07/20/17 13:17 Dose: 2.5 mg Discontinued Medications Aspirin (Aspirin) 324 mg PO ONETIME ONE Stop: 07/19/17 20:49 Last Admin: 07/19/17 20:57 Dose: 324 mg Bumetanide (Bumex) 1 mg IVPUSH ONETIME ONE Stop: 07/19/17 20:49 Last Admin: 07/19/17 21:01 Dose: 1 mg Furosemide (Lasix) 40 mg IVPUSH NOW ONE Stop: 07/20/17 00:07 Last Admin: 07/20/17 00:57 Dose: 40 mg Furosemide (Lasix) 40 mg IVPUSH BID [facility] Magnesium Sulfate/Dextrose 1 (gm/ Premix) 100 mls @ 100 mls/hr IV ONETIME ONE Stop: 07/20/17 11:17 Last Infusion: 07/20/17 12:05 Dose: Infused Potassium Chloride (Klor-Con 10) 40 meq PO Q4HR [facility] Stop: 07/20/17 18:01 Last Admin: 07/20/17 17:40 Dose: 40 meq - Exam General: Alert, Oriented HEENT: Pupils Equal Neck: Supple Lungs: Clear to Auscultation Cardiovascular: Regular Rate, Regular Rhythm GI/Abdominal Exam: Normal Bowel Sounds - Problem List Review Problem List Initiated/Reviewed/Updated: Yes - My Orders Last 24 Hours: My Active Orders 07/20/17 10:11 Ondansetron [Zofran] 4 mg IV Q4H PRN 07/20/17 12:00 Calcitriol [Rocaltrol] 0.25 mcg PO Q48H Insulin Aspart [NovoLOG] 0 unit SUBCUT WITHLUNCH 07/20/17 14:00 Warfarin [Coumadin] 2.5 mg PO DAILY@1400 07/20/17 17:00 Insulin Aspart [NovoLOG] 0 unit SUBCUT ACDINNER 07/20/17 21:00 LORazepam [Ativan] 0.5 mg PO BEDTIME - Plan Plan:: 76-year-old female with a past medical history of hypertension, diastolic heart failure, atrial fibrillation on Coumadin, diabetes mellitus, normal pressure hydrocephalus status 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 #Acute exacerbation of probably diastolic congestive heart failure. Improvement in symptoms Continue IV Lasix 80 mg IV every 12 hours Fluid restriction 1.2 L per day Salt restriction 2 g per day Monitor electrolytes Strict I's and O's Likely will discharge tomorrow morning Discussed extensively with patient on the need to adhere to fluid restriction and salt restriction at home Follow-up with the cardiology clinic on discharge #Atrial fibrillation. Rate is controlled. Anticoagulation: Continue Coumadin #Diabetes mellitus. Carbohydrate controlled diet Accu-Cheks 3 times a day before meals and at bedtime insulin sliding scale Continue current insulin regimen #Hypertension. Continue home BP meds #DVT prophylaxis Continue Coumadin
[2017-07-21] MEDS: Warfarin 2.5 MG Tab PO SCH (13:48)
[2017-07-21] MEDS: LORazepam 0.5 MG Tab PO SCH (20:29)
[2017-07-21] MEDS: traMADol 50 MG Tab PO PRN (23:17)
[2017-07-22] MEDS: Levothyroxine 150 MCG Tab PO SCH (05:37)
[2017-07-22] MEDS: Cholecalciferol (Vitamin D3) 400 Unit Tab PO SCH (08:08)
[2017-07-22] MEDS: Carvedilol 6.25 MG Tab PO SCH (08:09)
[2017-07-22] MEDS: Cyanocobalamin (Vitamin B12) 100 MCG Tab PO SCH (08:09)
[2017-07-22] MEDS: Docusate Sodium 100 MG Cap PO SCH (08:09)
[2017-07-22] MEDS: Pantoprazole 40 MG Tab.CR PO SCH (08:10)
[2017-07-22] MEDS: Allopurinol 100 MG Tab PO SCH (08:10)
[2017-07-22] MEDS: amLODIPine 5 MG Tab PO SCH (08:10)
[2017-07-22] MEDS: Isosorbide Mononitrate 60 MG Tab.ER PO SCH (08:11)
[2017-07-22] MEDS: Insulin Aspart 100 Units/ML 3 ML Pen SUBCUT SCH ×4 (08:11→12:13)
[2017-07-22] MEDS: Furosemide 100 MG/10 ML SDV IVPUSH SCH (08:13)
[2017-07-22] MEDS: Insulin Detemir 100 Units/ML 3 ML Pen SUBCUT SCH (08:36)
--- NOTE | 2017-07-22 10:28 | PCM.DCSUM1 ---
Discharge Summary - Hospital Course Free Text/Narrative:: 76-year-old female with a past medical history of hypertension, diastolic heart failure, atrial fibrillation on Coumadin, diabetes mellitus, normal pressure hydrocephalus status post COLD PATCHER 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 She was managed for CHF exacerbation, IV diuresis with Lasix was able to improve symptoms. More than 6 L of fluid output was obtained during admission. She felt much better on the day of discharge. Follow-up with primary care physician Discussed extensively on the need for fluid restriction to 1.5 L a day, dietary salt restriction, and carbohydrate controlled diet - Discharge Data Discharge Date: 07/22/17 Discharge Disposition: Home, Self-Care 01 Condition: Good - Patient Instructions Diet: Diabetic Diet Fluid Restriction: 1500 mL Activity: Full Weight Bearing - Discharge Plan Home Medications: Home Meds Isosorbide Mononitrate [Imdur] 60 mg PO DAILY 11/25/13 [History] LORazepam [Ativan] 0.5 mg PO BEDTIME 11/25/13 [History] Levothyroxine Sodium [Synthroid] 150 mcg PO ACBREAKFAST 11/25/13 [History] Nitroglycerin [Nitrostat] 0.4 mg SL Q5M PRN MDD 3 11/25/13 [History] Psyllium [Metamucil SF] 1 tbsp PO DAILY PRN 11/25/13 [History] amLODIPine Besylate [Amlodipine Besylate] 2.5 mg PO DAILY 11/25/13 [History] Acetaminophen 650 mg PO Q6HR PRN 03/28/15 [History] Albuterol [Proventil HFA] 2 inh INH ASDIRECTED PRN 03/28/15 [History] Potassium Chloride 40 meq PO TID 03/28/15 [History] Cholecalciferol (Vitamin D3) [Vitamin D3] 1,000 units PO TID 03/29/15 [History] Carvedilol [Coreg] 6.25 mg PO BIDMEALS 03/27/16 [History] Cyanocobalamin (Vitamin B12) [Vitamin B12] 100 mcg PO DAILY 03/27/16 [History] Hypromellose/PF [Retaine Hpmc 0.3% Eye Drops] 1 drop EYEBOTH Q4H PRN 03/27/16 [ History] Meclizine [Antivert] 25 mg PO QID PRN 03/27/16 [History] Pantoprazole Sodium [Protonix] 40 mg PO DAILY 03/27/16 [History] Docusate Sodium 100 mg PO BID 08/30/16 [History] Insulin Aspart [NovoLOG] 30 unit SUBCUT ACLUNCH pen 01/01/17 [Rx] Insulin Aspart [NovoLOG] 38 unit SUBCUT ACDINNER pen 01/01/17 [Rx] Insulin Detemir [Levemir] 62 unit SUBCUT BEDTIME pen 01/01/17 [Rx] Insulin Detemir [Levemir] 75 unit SUBCUT DAILY pen 01/01/17 [Rx] Albuterol Sulfate 2.5 mg IH Q6H PRN 02/05/17 [History] Allopurinol [Zyloprim] 100 mg PO BID 05/02/17 [History] Bumetanide [Bumex] 2 mg PO TID 05/02/17 [History] Calcitriol 0.25 mcg PO Q48H 05/02/17 [History] Insulin Aspart [NovoLOG] 26 unit SUBCUT ACBREAKFAST 05/02/17 [History] Warfarin [Coumadin] 2.5 mg PO DAILY 05/02/17 [History] traMADol [Ultram] 50 mg PO DAILY PRN 05/02/17 [History] Forms: ED Department Discharge Referrals: PCP,Kevonobtain [Primary Care Provider] - - General Info Admission Dx/Problem (Free Text: Admission Diagnosis/Problem Admission Diagnosis/Problem Acute diastolic congestive heart failure Subjective Update: Patient is doing much better this morning. Shortness of breath has markedly improved No new complaints She has had more than 5 L of urine output since admission. - Review of Systems General: Reports: No Symptoms HEENT: Reports: No Symptoms Pulmonary: Reports: No Symptoms Cardiovascular: Reports: No Symptoms Gastrointestinal: Reports: No Symptoms Genitourinary: Reports: No Symptoms Musculoskeletal: Reports: No Symptoms - Patient Data Vitals - Most Recent: Last Vital Signs Temp 37.0 C 07/22/17 07:29 Pulse 101 H 07/22/17 08:09 Resp 18 07/22/17 07:29 BP 116/60 07/22/17 08:10 Pulse Ox 94 L 07/22/17 07:29 Weight - Most Recent: 65.374 kg I&O - Last 24 hours: Intake & Output 07/21/17 07/22/17 07/22/17 22:59 06:59 14:59 Intake Total 100 140 400 Output Total 1200 Balance 100 -1060 400 Lab Results - Last 24 hrs: Laboratory Results - last 24 hr 07/21/17 07/21/17 07/21/17 Range/Units 11:03 16:45 20:32 POC Glucose 193 H 133 H 84 (83-110) mg/dl 07/22/17 07/22/17 Range/Units 05:43 07:38 POC Glucose 65 L 202 H (83-110) mg/dl Med Orders - Current: Current Medications Acetaminophen (Tylenol) 650 mg PO Q6H PRN PRN Reason: Pain Last Admin: 07/20/17 11:03 Dose: 650 mg Albuterol (Proventil Neb Soln) 2.5 mg NEB Q6H PRN PRN Reason: Shortness of Breath Allopurinol (Zyloprim) 100 mg PO BID [facility] Last Admin: 07/22/17 08:10 Dose: 100 mg Amlodipine Besylate (Norvasc) 2.5 mg PO DAILY [facility] Last Admin: 07/22/17 08:10 Dose: 2.5 mg Calcitriol (Rocaltrol) 0.25 mcg PO Q48H [facility] Last Admin: 07/20/17 13:23 Dose: 0.25 mcg Carvedilol (Coreg) 6.25 mg PO BIDMEALS [facility] Last Admin: 07/22/17 08:09 Dose: 6.25 mg Cholecalciferol (Vitamin D3) 1,000 units PO TID [facility] Last Admin: 07/22/17 08:08 Dose: 1,000 units Cyanocobalamin (Vitamin B12) 100 mcg PO DAILY [facility] Last Admin: 07/22/17 08:09 Dose: 100 mcg Docusate Sodium (Colace) 100 mg PO BID [facility] Last Admin: 07/22/17 08:09 Dose: 100 mg Furosemide (Lasix) 80 mg IVPUSH Q12HR [facility] Last Admin: 07/22/17 08:13 Dose: 80 mg Insulin Aspart (Novolog) 0 unit SUBCUT TIDAC [facility]; Protocol Last Admin: 07/22/17 08:12 Dose: 2 unit Insulin Aspart (Novolog) 0 unit SUBCUT WITHBREAKFAST [facility] Last Admin: 07/22/17 08:11 Dose: 26 units Insulin Aspart (Novolog) 0 unit SUBCUT WITHLUNCH [facility] Last Admin: 07/21/17 13:46 Dose: 30 units Insulin Aspart (Novolog) 0 unit SUBCUT ACDINNER [facility] Last Admin: 07/21/17 17:15 Dose: 38 units Insulin Detemir (Levemir) 62 unit SUBCUT BEDTIME [facility] Last Admin: 07/21/17 20:34 Dose: 62 units Insulin Detemir (Levemir) 0 unit SUBCUT DAILY [facility] Last Admin: 07/22/17 08:36 Dose: 75 units Isosorbide Mononitrate (Imdur) 60 mg PO DAILY [facility] Last Admin: 07/22/17 08:11 Dose: 60 mg Levothyroxine Sodium (Levothyroxine) 150 mcg PO ACBREAKFAST [facility] Last Admin: 07/22/17 05:37 Dose: 150 mcg Lorazepam (Ativan) 0.5 mg PO BEDTIME [facility] Last Admin: 07/21/17 20:29 Dose: 0.5 mg Nitroglycerin (Nitrostat) 0.4 mg SL Q5M PRN PRN Reason: Chest Pain Non-Formulary Medication (Hypromellose/Pf [Retaine Hpmc 0.3% Eye Drops]) 1 drop EYEBOTH Q4H PRN PRN Reason: Dry Eyes Ondansetron HCl (Zofran) 4 mg IV Q4H PRN PRN Reason: Nausea/Vomiting Pantoprazole Sodium (Protonix) 40 mg PO DAILY [facility] Last Admin: 07/22/17 08:10 Dose: 40 mg Tramadol HCl (Ultram) 50 mg PO DAILY PRN PRN Reason: Pain Last Admin: 07/21/17 23:17 Dose: 50 mg Warfarin Sodium (Coumadin) 2.5 mg PO DAILY@1400 [facility] Last Admin: 07/21/17 13:48 Dose: 2.5 mg Discontinued Medications Aspirin (Aspirin) 324 mg PO ONETIME ONE Stop: 07/19/17 20:49 Last Admin: 07/19/17 20:57 Dose: 324 mg Bumetanide (Bumex) 1 mg IVPUSH ONETIME ONE Stop: 07/19/17 20:49 Last Admin: 07/19/17 21:01 Dose: 1 mg Furosemide (Lasix) 40 mg IVPUSH NOW ONE Stop: 07/20/17 00:07 Last Admin: 07/20/17 00:57 Dose: 40 mg Furosemide (Lasix) 40 mg IVPUSH BID [facility] Magnesium Sulfate/Dextrose 1 (gm/ Premix) 100 mls @ 100 mls/hr IV ONETIME ONE Stop: 07/20/17 11:17 Last Infusion: 07/20/17 12:05 Dose: Infused Potassium Chloride (Klor-Con 10) 40 meq PO Q4HR [facility] Stop: 07/20/17 18:01 Last Admin: 07/20/17 17:40 Dose: 40 meq - Exam General: Reports: Alert, Oriented HEENT: Reports: Pupils Equal Neck: Reports: Supple Lungs: Reports: Clear to Auscultation Cardiovascular: Reports: Regular Rate, Regular Rhythm GI/Abdominal Exam: Normal Bowel Sounds
[2017-07-22 10:58] VITALS: BP 139/60
--- NOTE | 2017-07-22 11:59 | EKG ---
07/19/2017 - CHIKIS BARRON - TIME: 8:25 p.m. FINDINGS: EKG shows atrial fibrillation at a rate of 114 beats per minute. [facility] /[id number]
[2017-07-22] MEDS: Calcitriol 0.25 MCG Cap PO SCH (12:14)
== END 2017-07-22 13:05 | disposition home or self-care (01) ==
LOC: DL.ED 20:19 → DL.MS 22:27
PROVIDERS: ADMIT Hospitalist; ATTEND Hospitalist
DX: I13.0 Hypertensive heart and chronic kidney disease with heart failure and stage 1 through stage 4 chronic kidney disease, or unspecified chronic kidney disease (principal); I50.31 Acute diastolic (congestive) heart failure; N18.3 Chronic kidney disease, stage 3 (moderate); I48.91 Unspecified atrial fibrillation; E11.22 Type 2 diabetes mellitus with diabetic chronic kidney disease; G91.2 (Idiopathic) normal pressure hydrocephalus; I25.10 Atherosclerotic heart disease of native coronary artery without angina pectoris; I25.2 Old myocardial infarction; J45.909 Unspecified asthma, uncomplicated; G47.30 Sleep apnea, unspecified; K59.09 Other constipation; K21.9 Gastro-esophageal reflux disease without esophagitis; E66.9 Obesity, unspecified; Z88.2 Allergy status to sulfonamides; Z79.01 Long term (current) use of anticoagulants; Z98.2 Presence of cerebrospinal fluid drainage device; Z95.5 Presence of coronary angioplasty implant and graft; Z79.899 Other long term (current) drug therapy; Z79.4 Long term (current) use of insulin; Z86.73 Personal history of transient ischemic attack (TIA), and cerebral infarction without residual deficits; Z68.30 Body mass index [BMI] 30.0-30.9, adult; Z85.820 Personal history of malignant melanoma of skin; Z88.5 Allergy status to narcotic agent; Z91.041 Radiographic dye allergy status; Z88.0 Allergy status to penicillin; Z88.8 Allergy status to other drugs, medicaments and biological substances; Z88.7 Allergy status to serum and vaccine; Z91.011 Allergy to milk products
CPT/HCPCS: 36415; 71045; 80048; 80053; 81001; 82553; 82962; 83735; 83880; 84100; 84484; 85025; 85610; 93005; 93010; 96365; 96375; 96376; 99285; A9270; G0378; J1815; J1940; J3475; 96374; S0171

== ENCOUNTER → 2018-04-16 | Day surgery (SDC) | payer BC, OTHER ==
[~2018-04-16] MED LIST changes: +Dextrose 5%-0.45% NaCl 1,000 ML IV SCH; +Midazolam 1 MG/ML 2 ML SDV IV ONE; +Midazolam 1 MG/ML 2 ML SDV ONE; +fentaNYL 100 MCG/2 ML SDV IV ONE; +fentaNYL 100 MCG/2 ML SDV ONE
[2018-04-16] MEDS: Dextrose 5%-0.45% NaCl 1,000 ML IV SCH ×2 (06:30→07:02)
--- NOTE | 2018-04-16 12:22 | OR ---
DATE: 04/16/2018 PROCEDURE: Total colonoscopy. INSTRUMENT USED: CF-HQ190 AL Olympus video colonoscope. PREMEDICATIONS: Fentanyl 100 mcg intravenous, Versed 3 mg intravenous. Nasal O2 cannula. The procedure was done under pulse oximetry, BP recording, and design/animation instructor. INDICATION: The patient with rectal bleeding. Colonoscopic examination is done for detection of any polypoid lesions and removal. Endoscopic hemostasis therapy if needed. DESCRIPTION OF PROCEDURE: Initial rectal exam showed large external hemorrhoidal tags. Rigid anoscopy was normal. The colonoscope was passed with ease up to the ileocecal area. Photographs were taken of the area. No bleeding was noted from any of the visualized areas at the commencement of the examination. There was moderate amount of fecal material that had to be aspirated. Bowel preparation, [place] scale 2. Scattered diverticula were noted in the colon. Diminutive scattered benign- appearing polyps were noted. No stricture. No vascular ectasia. No large isolated ulcerations seen. No evidence of diffuse inflammatory bowel disease in the form of friability, contact bleeding, or ulcerations. No malignant mass identified. Probing the proximal sides of folds and flexures using adequate distention and clearing up the stool material, withdrawal of the scope was made. [id number] time over 6 minutes. No bleeding was noted from any of the visualized areas at the completion of examination. IMPRESSION: 1. External hemorrhoids. 2. Diverticulosis. 3. Diminutive colonic polyps. The patient tolerated the procedure well. [facility] /[id number]
--- NOTE | 2018-04-16 13:27 | LETTER ---
04/16/2018 Red Yates MD [facility] [address] [place] [address] RE: CHIKIS BARRON : [address] Yates: Ms. Chikis Lara Alytristan had a colonoscopic examination done this morning and she tolerated the procedure well. I herewith send a copy of the endoscopy note and photographs for your review. Thank you. Sincerely, [facility] /[id number]
[2018-04-16 14:00] VITALS: BP 133/59
== END | disposition home or self-care (01) ==
LOC: DL.ENDO 06:10
PROVIDERS: ATTEND Internal Medicine Gastroenterology
DX: K62.5 Hemorrhage of anus and rectum (principal); K63.5 Polyp of colon; K64.4 Residual hemorrhoidal skin tags; K57.30 Diverticulosis of large intestine without perforation or abscess without bleeding; I13.0 Hypertensive heart and chronic kidney disease with heart failure and stage 1 through stage 4 chronic kidney disease, or unspecified chronic kidney disease; E11.22 Type 2 diabetes mellitus with diabetic chronic kidney disease; N18.9 Chronic kidney disease, unspecified; E66.01 Morbid (severe) obesity due to excess calories; I48.91 Unspecified atrial fibrillation; Z90.49 Acquired absence of other specified parts of digestive tract; Z90.710 Acquired absence of both cervix and uterus
CPT/HCPCS: 82962; J2250; J3010; J7042

== ENCOUNTER 2018-04-20 19:12 | Observation (INO) | payer MEDICARE, BC, OTHER ==
[2018-04-20 20:04] LABS: ANION GAP 14.7
--- NOTE | 2018-04-20 20:17 | EDM.PDOC ---
"ED HPI GENERAL MEDICAL PROBLEM - General Chief Complaint: Diabetic Complaint Stated Complaint: AMBULANCE Time Seen by Provider: 04/20/18 19:15 Source of Information: Reports: Patient, EMS, Family, RN Notes Reviewed History Limitations: Reports: No Limitations - History of Present Illness INITIAL COMMENTS - FREE TEXT/NARRATIVE: ED via [facility] with report of low blood sugar, found lying on floor by family member initial blood sugar by EMS 36, able to get patient to take glucose orally. EMS unable to access IV. Hx recent colonoscopy on Friday. Had been eating fair and normal BM. Thinks gallbladder is getting bad, Waiting for PCP to make referral to surgeon. Di d eat breakfast BS greater than 200 this am so additional Novolog. Total am dose 50 Novolog and 80units Levemir and did not eat. Onset: Today Back Pain Score (Numeric/FACES): 7 - Related Data Allergies Allergy/AdvReac Type Severity Reaction Status Date / Time codeine Allergy Severe Rash Verified 04/20/18 23:21 indomethacin [From Indocin] Allergy Severe Other Verified 04/20/18 23:21 Iodinated Contrast- Oral and Allergy Severe Other Verified 04/20/18 23:21 IV Dye [Iodinated Contrast Media - IV Dye] Penicillins Allergy Severe Hives Verified 04/20/18 23:21 pentazocine [From Talwin] Allergy Severe Delusions Verified 04/20/18 23:21 Sulfa (Sulfonamide Allergy Severe Hives Verified 04/20/18 23:21 Antibiotics) sulfamethoxazole Allergy Severe Hives Verified 04/20/18 23:21 [From Bactrim] trimethoprim [From Bactrim] Allergy Severe Hives Verified 04/20/18 23:21 ampicillin Allergy Intermediate Hives Verified 04/20/18 23:21 atorvastatin calcium Allergy Mild Muscle Verified 04/20/18 23:21 [From Lipitor] Aches duloxetine HCl Allergy Mild Nausea Verified 04/20/18 23:21 [From Cymbalta] indomethacin sodium Allergy Mild Headache Verified 04/20/18 23:21 [From Indocin] lactose Allergy Mild Diarrhea Verified 04/20/18 23:21 lisinopril Allergy Mild Cough Verified 04/20/18 23:21 metoprolol Allergy Mild Fatigue Verified 04/20/18 23:21 oxycodone [Oxycodone] Allergy Mild Other Verified 04/20/18 23:21 pravastatin Allergy Mild Muscle Verified 04/20/18 23:21 Aches simvastatin Allergy Mild Muscle Verified 04/20/18 23:21 Aches spironolactone Allergy Mild Headache Verified 04/20/18 23:21 tuberculin, purified protein Allergy Mild Rash Verified 04/20/18 23:21 deriva [tuberculin,purif.prot.deriv.] clindamycin Allergy Abdominal Verified 04/20/18 23:21 Pain clonazepam [From Klonopin] Allergy Other Verified 04/20/18 23:21 hydrochlorothiazide Allergy Lethargy Verified 04/20/18 23:21 tetanus toxoid, adsorbed Allergy Other Verified 04/20/18 23:21 zoster vaccine live Allergy Other Verified 04/20/18 23:21 flannel Allergy Burning Uncoded 04/20/18 23:21 Home Meds: Home Meds Isosorbide Mononitrate [Imdur] 60 mg PO DAILY 11/25/13 [History] LORazepam [Ativan] 0.5 mg PO BEDTIME 11/25/13 [History] Levothyroxine Sodium [Synthroid] 150 mcg PO ACBREAKFAST 11/25/13 [History] Nitroglycerin [Nitrostat] 0.4 mg SL Q5M PRN MDD 3 11/25/13 [History] Psyllium [Metamucil SF] 1 tbsp PO DAILY PRN 11/25/13 [History] amLODIPine Besylate [Amlodipine Besylate] 2.5 mg PO DAILY 11/25/13 [History] Acetaminophen 650 mg PO Q6HR PRN 03/28/15 [History] Albuterol [Proventil HFA] 2 inh INH ASDIRECTED PRN 03/28/15 [History] Potassium Chloride 40 meq PO QID 03/28/15 [History] Cholecalciferol (Vitamin D3) [Vitamin D3] 1,000 units PO TID 03/29/15 [History] Carvedilol [Coreg] 6.25 mg PO BIDMEALS 03/27/16 [History] Cyanocobalamin (Vitamin B12) [Vitamin B12] 100 mcg PO DAILY 03/27/16 [History] Hypromellose/PF [Retaine Hpmc 0.3% Eye Drops] 1 drop EYEBOTH QID PRN 03/27/16 [ History] Meclizine [Antivert] 25 mg PO QID PRN 03/27/16 [History] Pantoprazole Sodium [Protonix] 40 mg PO DAILY 03/27/16 [History] Docusate Sodium 100 mg PO BID 08/30/16 [History] Allopurinol [Zyloprim] 100 mg PO BID 05/02/17 [History] Bumetanide [Bumex] 2 mg PO TID 05/02/17 [History] Insulin Aspart [NovoLOG] 40 unit SUBCUT ACBREAKFAST 05/02/17 [History] Warfarin [Coumadin] 3 mg PO DAILY 05/02/17 [History] traMADol [Ultram] 50 mg PO DAILY PRN 05/02/17 [History] Albuterol [Proventil Neb Soln] 1 ampule INH Q6H PRN 04/10/18 [History] Amitriptyline [Elavil] 10 - 20 mg PO BEDTIME PRN 04/10/18 [History] Cinnamon Bark [Cinnamon] 1,000 mg PO DAILY 04/10/18 [History] Dextrose Tabs 16 g PO ASDIRECTED PRN 04/10/18 [History] Insulin Aspart [NovoLOG] 40 unit SUBCUT ACDINNER 04/10/18 [History] Insulin Aspart [NovoLOG] 40 unit SUBCUT ACLUNCH 04/10/18 [History] Insulin Detemir [Levemir] 80 unit SUBCUT BEDTIME 04/10/18 [History] Insulin Detemir [Levemir] 80 unit SUBCUT DAILY 04/10/18 [History] Ondansetron [Zofran] 4 mg PO Q6H PRN 04/10/18 [History] Pantothenic Acid 500 mg PO BEDTIME 04/10/18 [History] aMILoride HCl [Amiloride HCl] 5 mg PO DAILY 04/10/18 [History] metOLazone [Metolazone] 2.5 mg PO .TWICEWEEKLY 04/10/18 [History] Past Medical History HEENT History: Reports: Cataract, Impaired Vision, Other (See Below) Other HEENT History: HEARING LOSS TOTAL-RIGHT PARTIAL-LEFT, WEARS BILAT HEARING AIDES Cardiovascular History: Reports: Afib, Blood Clots/VTE/DVT, CAD, Heart Failure, Hypertension, [place], Stents, Other (See Below) Other Cardiovascular History: CAROTID ARTERY DISEASE. HEART FAILURE WITH PRESERVED EJECTION FRACTION. HYPERTENSIVE HEART DISEASE. TIA. ACUTE ON CHRONIC DIASTOLIC CONGESTIVE HEART FAILURE Respiratory History: Reports: Asthma, Bronchitis, Recurrent, Sleep Apnea Gastrointestinal History: Reports: Chronic Constipation, GERD, Hemorrhoids, Irritable Bowel Syndrome Other Gastrointestinal History: DENIES CONSTIPATION Genitourinary History: Reports: Chronic Renal Insuffiency, Renal Calculus, Other (See Below) Other Genitourinary History: CKD STAGE III TREATING ENGINEER HELPER History: Reports: Other (See Below) Other TREATING ENGINEER HELPER History: UTERUS WAS ADHESED TO HER SPINE Musculoskeletal History: Reports: Back Pain, Chronic, Fracture, Osteoarthritis Other Musculoskeletal History: FRACTURED ARM WHEN SHE WAS YOUNG Neurological History: Reports: Headaches, Chronic, TIA, Other (See Below) Other Neuro History: NORMAL PRESSURE HYDROCEPHALUS. SUBDURAL HEMATOMA. lorazepam controls headaches from shunt Psychiatric History: Reports: Depression Endocrine/Metabolic History: Reports: Diabetes, Type II, Hypothyroidism, Obesity /BMI 30+, Osteoporosis, Vitamin D Deficiency Hematologic History: Reports: Blood Transfusion(s) Immunologic History: Reports: None Oncologic (Cancer) History: Reports: Malignant Melanoma Dermatologic History: Reports: None - Infectious Disease History Infectious Disease History: Reports: Chicken Pox, Measles, Mumps, Shingles, Other (See Below) Other Infectious Disease History: EXPOSED TO SOMETHING IN [place] IN LATE 70'S THAT AFFECTED LUNGS, CANT RMEMEBER - Past Surgical History Head Surgeries/Procedures: Reports: Shunt HEENT Surgical History: Reports: Adenoidectomy, Cataract Surgery, Tonsillectomy Other HEENT Surgeries/Procedures: PE TUBE PLACEMENT/REMOVAL RIGHT EAR. BILAT CATARACT EXTRACTION WITH LENS IMPLANTS Cardiovascular Surgical History: Reports: Carotid Endarterectomy, Coronary Artery Stent Other Cardiovascular Surgeries/Procedures: IVC FILTER PLACEMENT & REMOVAL Respiratory Surgical History: Reports: None GI Surgical History: Reports: Appendectomy, Colon, Colonoscopy, EGD, Polypectomy , Other (See Below) Other GI Surgeries/Procedures: large colon mostly resected - annotated redundant bowel Female Surgical History: Reports: Breast Biopsy, Cystectomy, Hysterectomy, Salpingo-Oophorectomy, Other (See Below) Other Female Surgeries/Procedures: breast cyst Endocrine Surgical History: Reports: None Neurological Surgical History: Reports: Other (See Below) Other Neurological Surgeries/Procedures: spinal tap and CIGAR SORTER shunt (2007) Musculoskeletal Surgical History: Reports: None Oncologic Surgical History: Reports: Biopsy of Breast Dermatological Surgical History: Reports: None Social & Family History - Family History Family Medical History: Noncontributory - Tobacco Use Smoking Status *Q: Never Smoker Second Hand Smoke Exposure: No - Caffeine Use Caffeine Use: Reports: None, Coffee, Tea Caffeine Use Comment: 1 CUP COFFEE. 2 CUPS TEA - Recreational Drug Use Recreational Drug Use: No - Living Situation & Occupation Living situation: Reports: with Family Occupation: Retired ED ROS GENERAL - Review of Systems Review Of Systems: See Below Constitutional: Reports: Decreased Appetite. Denies: Fever, Chills HEENT: Reports: No Symptoms Respiratory: Reports: No Symptoms Cardiovascular: Reports: No Symptoms GI/Abdominal: Reports: Hematochezia (gall stones), Other (colonoscopy ) : Reports: No Symptoms Musculoskeletal: Reports: Back Pain Skin: Reports: No Symptoms Neurological: Reports: No Symptoms. Denies: Headache ED EXAM GENERAL NO PERIP PULSE - Physical Exam Exam: See Below Exam Limited By: No Limitations General Appearance: Alert, No Apparent Distress, Obese (morbid) Eye Exam: Bilateral Eye: EOMI, PERRL Ears: Normal External Exam Nose: Normal Inspection Throat/Mouth: Normal Inspection Head: Atraumatic, Normocephalic Neck: Normal Inspection, Supple, Non-Tender, Full Range of Motion Respiratory/Chest: No Respiratory Distress, Lungs Clear, Normal Breath Sounds. No: Rales, Rhonchi, Wheezing Cardiovascular: Normal Peripheral Pulses, Irregularly Irregular GI/Abdominal: Soft, Tender (generalized), Abnormal Bowel Sounds (hyperactive). No: Distended, Guarding Back Exam: Paraspinal Tenderness (mid thoracic, right, right lumbar) Neurological: Alert, Oriented, Normal Cognition Psychiatric: Normal Affect Skin Exam: Warm, Dry, Intact, Normal Color Course - Vital Signs Last Recorded V/S: Last Vital Signs Temp 97.0 F 04/20/18 23:57 Pulse 102 H 04/20/18 23:57 Resp 20 04/20/18 23:57 BP 152/112 H 04/20/18 23:57 Pulse Ox 91 L 04/20/18 23:57 - Orders/Labs/Meds Orders: Active Orders 24 hr Category Date Time Status EKG 12 Lead [EKG Documentation Completion] [RC] ROUTINE Care 04/20/18 19:26 Active Glucose [Blood Glucose Check, Bedside] [RC] ONETIME Care 04/20/18 21:06 Active CULTURE BLOOD [BC] Stat Lab 04/20/18 19:34 Received CULTURE BLOOD [BC] Stat Lab 04/20/18 19:46 Received Blood Culture x2 Reflex Set [OM.PC] Stat Oth 04/20/18 19:21 Ordered Medication Orders Acetaminophen (Tylenol) 650 mg PO Q6H PRN PRN Reason: Pain (mild 1-3) Albuterol (Proventil Neb Soln) 0.63 mg INH Q6H PRN PRN Reason: Wheezing Allopurinol (Zyloprim) 100 mg PO BID [facility] Amitriptyline HCl (Elavil) 10 mg PO BEDTIME PRN PRN Reason: Insomnia Amlodipine Besylate (Norvasc) 2.5 mg PO DAILY [facility] Bumetanide (Bumex) 2 mg PO TID@0900,1200,1600 [facility] Carvedilol (Coreg) 6.25 mg PO BIDMEALS [facility] Cholecalciferol (Vitamin D3) 1,000 units PO TID [facility] Cyanocobalamin (Vitamin B12) 100 mcg PO DAILY [facility] Docusate Sodium (Colace) 100 mg PO BID [facility] Insulin Human Lispro (Humalog) 0 unit SUBCUT TIDMEALS [facility]; Protocol Isosorbide Mononitrate (Imdur) 60 mg PO DAILY [facility] Levothyroxine Sodium (Levothyroxine) 150 mcg PO ACBREAKFAST [facility] Meclizine HCl (Antivert) 25 mg PO QID PRN PRN Reason: vertigo Non-Formulary Medication (Amiloride Hcl) 5 mg PO DAILY [facility] Non-Formulary Medication (Pantothenic Acid [Pantothenic Acid]) 500 mg PO BEDTIME [facility] Ondansetron HCl (Zofran Odt) 4 mg PO Q6H PRN PRN Reason: Nausea Pantoprazole Sodium (Protonix) 40 mg PO ACBREAKFAST [facility] Sodium Chloride (Saline Flush) 10 ml FLUSH ASDIRECTED PRN PRN Reason: Keep Vein Open Tramadol HCl (Ultram) 50 mg PO TID PRN PRN Reason: Pain (severe 7-10) Last Admin: 04/21/18 00:54 Dose: 50 mg Admin: 04/21/18 00:53 Dose: 50 mg Warfarin Sodium (Coumadin) 3 mg PO DAILY@1400 [facility] Last Admin: 04/21/18 00:53 Dose: 3 mg Labs: Laboratory Tests 04/20/18 04/20/18 04/20/18 Range/Units 19:34 19:34 19:34 WBC 10.6 H (5.0-10.0) 10^3/uL RBC 4.47 (4.2-5.4) 10^6/uL Hgb 12.7 (12.0-16.0) g/dL Hct 42.0 (37.0-47.0) % MCV 94.0 (80-100) fL MCH 28.4 (27.0-34.0) pg MCHC 30.2 L (33.0-35.0) g/dL Plt Count 205 (150-450) 10^3/uL Neut % (Auto) 79.3 H (42.2-75.2) % Lymph % (Auto) 7.0 L (20.5-50.1) % [place] % (Auto) 13.0 H (2-8) % Eos % (Auto) 0.4 L (1.0-3.0) % Baso % (Auto) 0.3 (0.0-1.0) % PT 11.5 D (9.0-12.0) SEC INR 1.2 (0.9-1.2) Sodium 139 (135-145) mmol/L Potassium 4.7 (3.6-5.0) mmol/L Chloride 104 (101-111) mmol/L Carbon Dioxide 25.0 (21.0-31.0) mmol/L Anion Gap 14.7 BUN 20 H (7-18) mg/dL Creatinine 1.1 (0.6-1.3) mg/dL Est Cr Clr Drug Dosing 33.87 mL/min Estimated GFR (MDRD) 48 BUN/Creatinine Ratio 18.18 Glucose 102 (74-105) mg/dL POC Glucose (83-110) mg/dl Calcium 9.6 (8.4-10.2) mg/dl Total Bilirubin 1.1 H (0.2-1.0) mg/dL AST 73 H (10-42) IU/L ALT 36 (10-60) IU/L Alkaline Phosphatase 180 H (42-121) IU/L Creatine Kinase (26-174) IU/L CK-MB (CK-2) (0.4-4.7) ng/mL Troponin I 0.03 H* (0.00-0.02) ng/ml Total Protein 7.4 (6.7-8.2) g/dl Albumin 3.6 (3.2-5.5) g/dl Globulin 3.8 Albumin/Globulin Ratio 0.95 Amylase (28-100) U/L Urine Color (YELLOW) Urine Appearance (CLEAR) Urine pH (5.0-9.0) Ur Specific [place] (1.005-1.030) Urine Protein (NEGATIVE) Urine Glucose (UA) (NEGATIVE) Urine Ketones (NEGATIVE) Urine Occult Blood (NEGATIVE) Urine Nitrite (NEGATIVE) Urine Bilirubin (NEGATIVE) Urine Urobilinogen (0.2-1.0) mg/dL Ur Leukocyte Esterase (NEGATIVE) Urine RBC /HPF Urine WBC (0-5/HPF) /HPF Ur Epithelial Cells /HPF Urine Bacteria (0-FEW/HPF) /HPF Hyaline Casts /LPF Fine Granular Casts (0/LPF) /LPF 04/20/18 04/20/18 04/20/18 Range/Units 19:34 19:34 19:34 WBC (5.0-10.0) 10^3/uL RBC (4.2-5.4) 10^6/uL Hgb (12.0-16.0) g/dL Hct (37.0-47.0) % MCV (80-100) fL MCH (27.0-34.0) pg MCHC (33.0-35.0) g/dL Plt Count (150-450) 10^3/uL Neut % (Auto) (42.2-75.2) % Lymph % (Auto) (20.5-50.1) % [place] % (Auto) (2-8) % Eos % (Auto) (1.0-3.0) % Baso % (Auto) (0.0-1.0) % PT (9.0-12.0) SEC INR (0.9-1.2) Sodium (135-145) mmol/L Potassium (3.6-5.0) mmol/L Chloride (101-111) mmol/L Carbon Dioxide (21.0-31.0) mmol/L Anion Gap BUN (7-18) mg/dL Creatinine (0.6-1.3) mg/dL Est Cr Clr Drug Dosing mL/min Estimated GFR (MDRD) BUN/Creatinine Ratio Glucose (74-105) mg/dL POC Glucose (83-110) mg/dl Calcium (8.4-10.2) mg/dl Total Bilirubin (0.2-1.0) mg/dL AST (10-42) IU/L ALT (10-60) IU/L Alkaline Phosphatase (42-121) IU/L Creatine Kinase 74 (26-174) IU/L CK-MB (CK-2) 3.90 (0.4-4.7) ng/mL Troponin I (0.00-0.02) ng/ml Total Protein (6.7-8.2) g/dl Albumin (3.2-5.5) g/dl Globulin Albumin/Globulin Ratio Amylase 61 (28-100) U/L Urine Color (YELLOW) Urine Appearance (CLEAR) Urine pH (5.0-9.0) Ur Specific [place] (1.005-1.030) Urine Protein (NEGATIVE) Urine Glucose (UA) (NEGATIVE) Urine Ketones (NEGATIVE) Urine Occult Blood (NEGATIVE) Urine Nitrite (NEGATIVE) Urine Bilirubin (NEGATIVE) Urine Urobilinogen (0.2-1.0) mg/dL Ur Leukocyte Esterase (NEGATIVE) Urine RBC /HPF Urine WBC (0-5/HPF) /HPF Ur Epithelial Cells /HPF Urine Bacteria (0-FEW/HPF) /HPF Hyaline Casts /LPF Fine Granular Casts (0/LPF) /LPF 04/20/18 04/20/18 Range/Units 21:08 22:15 WBC (5.0-10.0) 10^3/uL RBC (4.2-5.4) 10^6/uL Hgb (12.0-16.0) g/dL Hct (37.0-47.0) % MCV (80-100) fL MCH (27.0-34.0) pg MCHC (33.0-35.0) g/dL Plt Count (150-450) 10^3/uL Neut % (Auto) (42.2-75.2) % Lymph % (Auto) (20.5-50.1) % [place] % (Auto) (2-8) % Eos % (Auto) (1.0-3.0) % Baso % (Auto) (0.0-1.0) % PT (9.0-12.0) SEC INR (0.9-1.2) Sodium (135-145) mmol/L Potassium (3.6-5.0) mmol/L Chloride (101-111) mmol/L Carbon Dioxide (21.0-31.0) mmol/L Anion Gap BUN (7-18) mg/dL Creatinine (0.6-1.3) mg/dL Est Cr Clr Drug Dosing mL/min Estimated GFR (MDRD) BUN/Creatinine Ratio Glucose (74-105) mg/dL POC Glucose 157 H (83-110) mg/dl Calcium (8.4-10.2) mg/dl Total Bilirubin (0.2-1.0) mg/dL AST (10-42) IU/L ALT (10-60) IU/L Alkaline Phosphatase (42-121) IU/L Creatine Kinase (26-174) IU/L CK-MB (CK-2) (0.4-4.7) ng/mL Troponin I (0.00-0.02) ng/ml Total Protein (6.7-8.2) g/dl Albumin (3.2-5.5) g/dl Globulin Albumin/Globulin Ratio Amylase (28-100) U/L Urine Color Yellow (YELLOW) Urine Appearance Clear (CLEAR) Urine pH 5.5 (5.0-9.0) Ur Specific [place] 1.020 (1.005-1.030) Urine Protein 100 H (NEGATIVE) Urine Glucose (UA) Negative (NEGATIVE) Urine Ketones Negative (NEGATIVE) Urine Occult Blood Trace-intact H (NEGATIVE) Urine Nitrite Negative (NEGATIVE) Urine Bilirubin Negative (NEGATIVE) Urine Urobilinogen 0.2 (0.2-1.0) mg/dL Ur Leukocyte Esterase Negative (NEGATIVE) Urine RBC 0-5 /HPF Urine WBC 0-5 (0-5/HPF) /HPF Ur Epithelial Cells Few /HPF Urine Bacteria Few (0-FEW/HPF) /HPF Hyaline Casts Few H /LPF Fine Granular Casts Few H (0/LPF) /LPF Meds: Medications Generic Name Dose Route Start Last Admin Trade Name Freq PRN Reason Stop Dose Admin Acetaminophen 650 mg 04/20/18 23:58 Tylenol PO Q6H PRN Pain (mild 1-3) Albuterol 0.63 mg 04/20/18 23:58 Proventil Neb Soln INH Q6H PRN Wheezing Allopurinol 100 mg 04/21/18 09:00 Zyloprim PO BID [facility] Amitriptyline HCl 10 mg 04/20/18 23:58 Elavil PO BEDTIME PRN Insomnia Amlodipine Besylate 2.5 mg 04/21/18 09:00 Norvasc PO DAILY [facility] Bumetanide 2 mg 04/21/18 09:00 Bumex PO TID@0900,1200,1600 [facility] Carvedilol 6.25 mg 04/21/18 08:00 Coreg PO BIDMEALS [facility] Cholecalciferol 1,000 units 04/21/18 09:00 Vitamin D3 PO TID [facility] Cyanocobalamin 100 mcg 04/21/18 09:00 Vitamin B12 PO DAILY [facility] Docusate Sodium 100 mg 04/21/18 09:00 Colace PO BID [facility] Insulin Human Lispro 0 unit 04/21/18 08:00 Humalog SUBCUT TIDMEALS [facility] Protocol Isosorbide Mononitrate 60 mg 04/21/18 09:00 Imdur PO DAILY [facility] Levothyroxine Sodium 150 mcg 04/21/18 06:00 Levothyroxine PO ACBREAKFAST [facility] Meclizine HCl 25 mg 04/20/18 23:58 Antivert PO QID PRN vertigo Non-Formulary Medication 5 mg 04/21/18 09:00 Amiloride Hcl PO DAILY [facility] Non-Formulary Medication 500 mg 04/21/18 21:00 Pantothenic Acid [Pantothenic Acid] PO BEDTIME [facility] Ondansetron HCl 4 mg 04/20/18 23:58 Zofran Odt PO Q6H PRN Nausea Pantoprazole Sodium 40 mg 04/21/18 06:00 Protonix PO ACBREAKFAST [facility] Sodium Chloride 10 ml 04/20/18 23:57 Saline Flush FLUSH ASDIRECTED PRN Keep Vein Open Tramadol HCl 50 mg 04/20/18 23:58 04/21/18 00:54 Ultram PO 50 mg TID PRN Administration Pain (severe 7-10) Warfarin Sodium 3 mg 04/21/18 00:15 04/21/18 00:53 Coumadin PO 3 mg DAILY@1400 [facility] Administration Discontinued Medications Generic Name Dose Route Start Last Admin Trade Name Freq PRN Reason Stop Dose Admin Tramadol HCl 50 mg 04/20/18 21:32 04/20/18 21:37 Ultram PO 04/20/18 21:33 50 mg ONETIME ONE Administration - Radiology Interpretation Free Text/Narrative:: [facility] [place] [facility] Final Radiology Report Call: [phone] assistance Online chat: [email or web address] Name: CHIKIS BARRON Age: 77Years F Date: 04/20/2018 SSN: -- : [id number] Study: CT HEAD WO Requesting Physician: ADY GOMES Images: [id number] Addl Studies: Provided Clinical History: Contrast: Without Contrast Medium: Contrast Amount: Contrast Method: Page 1 of 2 EXAM: CT Head Without Contrast EXAM DATE/TIME: 04/20/2018 7:40 PM CLINICAL HISTORY: 77 years old, female; Injury or trauma; Fall; Initial encounter; Blunt trauma ( contusions or hematomas); Patient HX: Fall hypoglycemia TECHNIQUE: Axial computed tomography images of the head/brain without contrast. All CT scans at this facility use at least one of these dose optimization techniques: automated exposure control; mA and/or kV adjustment per patient size (includes targeted exams where dose is matched to clinical indication); or iterative reconstruction. Coronal and sagittal reformatted images were created and reviewed. COMPARISON: CT Head wo Cont 06/20/2017 10:53 AM FINDINGS: Tubes, catheters and devices: Right CIGAR SORTER shunt in place. Tip crosses the midline and ends either within the left lateral ventricle or adjacent to it. Mild right-sided pneumocephalus. Brain: Bilateral subacute to old subdural hematomas measuring up to 1 cm in thickness and spanning the convexities entirely. There is nonspecific white matter disease, likely related to chronic ischemic demyelination. Ventricles: See Tubes, Catheters And Devices Finding. Bones/joints: Right parietal craniotomy changes with underlying encephalomalacia. Sinuses: Mucosal thickening in the left maxillary sinus. Mastoid air cells: Partial secretions in the right mastoid air cells. Soft tissues: Unremarkable. CHIKIS BARRON | Final Radiology Report CONFIDENTIALITY STATEMENT This report is intended only for use by the referring physician, and only in accordance with law. If you received this in error, call [phone]. Page 2 of 2 IMPRESSION: Bilateral subacute to old subdural hematomas measuring up to 1 cm in thickness and spanning the convexities entirely. Right CIGAR SORTER shunt in place. Tip crosses the midline and ends either within the left lateral ventricle or adjacent to it. Mild right-sided pneumocephalus. Name: CHIKIS BARRON Age: 77Years F Date: 04/20/2018 SSN: -- : [id number] Study: CT SPINE LUMBAR WO Requesting Physician: ADY GOMES Images: [id number] Addl Studies: Provided Clinical History: Contrast: Without Contrast Medium: Contrast Amount: Contrast Method: Page 1 of 2 EXAM: CT Lumbar Spine Without Contrast EXAM DATE/TIME: 04/20/2018 7:40 PM CLINICAL HISTORY: 77 years old, female; Injury or trauma; Fall; Initial encounter; Blunt trauma ( contusions or hematomas); Injury details: Fall hypoglycemia TECHNIQUE: Axial computed tomography images of the lumbar spine without intravenous contrast. All CT scans at this facility use at least one of these dose optimization techniques: automated exposure control; mA and/or kV adjustment per patient size (includes targeted exams where dose is matched to clinical indication); or iterative reconstruction. Coronal and sagittal reformatted images were created and reviewed. COMPARISON: No relevant prior studies available. FINDINGS: Vertebrae: No acute fracture. Normal alignment. At L4-5, there is diffuse disc bulge and hypertrophy of ligamentum flavum with mild central canal stenosis and bilateral neural foraminal stenosis At L5-S1, there is broad-based disc protrusion and facet arthrosis. No central canal stenosis. There is bilateral neural foraminal stenosis. Soft tissues: Unremarkable. IMPRESSION: No acute findings. CHIKIS BARRON | Final Radiology Report CONFIDENTIALITY STATEMENT This report is intended only for use by the referring physician, and only in accordance with law. If you received this in error, call [phone]. Page 2 of 2 Thank you for allowing us to participate in the care of your patient. Dictated and Authenticated by: Fracisco Green MD 04/20/2018 8:36 PM Central Time Name: CHIKIS BARRON Age: 77Years F Date: 04/20/2018 SSN: -- : [id number] Study: CT CHEST WO Requesting Physician: ADY GOMES Images: 300 Addl Studies: [id number] - CT ABDOMEN/PELVIS WO (1) Provided Clinical History: Contrast: Without Contrast Medium: Contrast Amount: Contrast Method: Page 1 of 3 EXAM: CT Chest Without Contrast EXAM DATE/TIME: 04/20/2018 7:40 PM CLINICAL HISTORY: 77 years old, female; Injury or trauma and signs and symptoms; Fall; Initial encounter; Abdominal tenderness; Blunt; Generalized; Blunt trauma (contusions or hematomas); Other: Abd pain distention TECHNIQUE: Axial computed tomography images of the chest without intravenous contrast. All CT scans at this facility use at least one of these dose optimization techniques: automated exposure control; mA and/or kV adjustment per patient size (includes targeted exams where dose is matched to clinical indication); or iterative reconstruction. Coronal and sagittal reformatted images were created and reviewed. COMPARISON: No relevant prior studies available. FINDINGS: Lungs: There are linear bands of atelectasis in the lower lobes. Pleural space: There are small bilateral pleural effusions. Small pleural effusions. Heart: Normal. No cardiomegaly. No pericardial effusion. Aorta: Normal. No aortic aneurysm. Lymph nodes: Unremarkable. No enlarged lymph nodes. Bones/joints: Unremarkable. No acute fracture. Soft tissues: Unremarkable. IMPRESSION: No acute process. CHIKIS BARRON | Final Radiology Report Page 2 of 3 EXAM: CT Abdomen and Pelvis Without Contrast EXAM DATE/TIME: 04/20/2018 7:40 PM CLINICAL HISTORY: 77 years old, female; Injury or trauma and signs and symptoms; Fall; Initial encounter; Abdominal tenderness; Blunt; Generalized; Blunt trauma (contusions or hematomas); Other: Abd pain distention TECHNIQUE: Axial computed tomography images of the abdomen and pelvis without contrast. All CT scans at this facility use at least one of these dose optimization techniques: automated exposure control; mA and/or kV adjustment per patient size (includes targeted exams where dose is matched to clinical indication); or iterative reconstruction. Coronal and sagittal reformatted images were created and reviewed. COMPARISON: No relevant prior studies available. FINDINGS: Tubes, catheters and devices: There is trace fluid in the left lower quadrant adjacent to distal aspect of [employer] shunt catheter. Lower thorax: No acute findings. ABDOMEN: Liver: Normal. No mass. Gallbladder and bile ducts: There are tiny calcified gallstones Pancreas: Normal. No ductal dilation. Spleen: Normal. No splenomegaly. Adrenals: Normal. No mass. Kidneys and ureters: Multiple simple right renal cysts. Stomach and bowel: Normal. No obstruction. No mucosal thickening. Appendix: No evidence of appendicitis. PELVIS: Bladder: Unremarkable as visualized. Reproductive: Unremarkable as visualized. ABDOMEN and PELVIS: Intraperitoneal space: Normal. No free air. Bones/joints: No acute fracture. No dislocation. Soft tissues: There is small fat containing supraumbilical hernia. Vasculature: Normal. No abdominal aortic aneurysm. Lymph nodes: Normal. No enlarged lymph nodes. CHIKIS BARRON | Final Radiology Report CONFIDENTIALITY STATEMENT This report is intended only for use by the referring physician, and only in accordance with law. If you received this in error, call [phone]. Page 3 of 3 IMPRESSION: 1. No acute process 2. Cholelithiasis. COMMENT: Consistent with the [employer] Incidental Findings Committee Report (J Am Kerry Radiol 2010): Unless the patients specific circumstances suggest otherwise , any liver lesion 0.5 cm or less, any cystic kidney lesion less than 1.0 cm, and/or any adrenal lesion 1.0 cm or less not otherwise characterized in this report as possessing suspicious or indeterminate imaging features is/are highly likely to be benign and do not require follow-up imaging or biopsy. Thank you for allowing us to participate in the care of your patient. Dictated and Authenticated by: Fracisco Green MD 04/20/2018 8:49 PM Central Time ([place] & [place]) Right parietal craniotomy changes with underlying encephalomalacia. Name: CHIKIS BARRON Age: 77Years F Date: 04/20/2018 SSN: -- : [id number] Study: CT CHEST WO Requesting Physician: ADY GOMES Images: 300 Addl Studies: [id number] - CT ABDOMEN/PELVIS WO (1) Provided Clinical History: Contrast: Without Contrast Medium: Contrast Amount: Contrast Method: Page 1 of 3 EXAM: CT Chest Without Contrast EXAM DATE/TIME: 04/20/2018 7:40 PM CLINICAL HISTORY: 77 years old, female; Injury or trauma and signs and symptoms; Fall; Initial encounter; Abdominal tenderness; Blunt; Generalized; Blunt trauma (contusions or hematomas); Other: Abd pain distention TECHNIQUE: Axial computed tomography images of the chest without intravenous contrast. All CT scans at this facility use at least one of these dose optimization techniques: automated exposure control; mA and/or kV adjustment per patient size (includes targeted exams where dose is matched to clinical indication); or iterative reconstruction. Coronal and sagittal reformatted images were created and reviewed. COMPARISON: No relevant prior studies available. FINDINGS: Lungs: There are linear bands of atelectasis in the lower lobes. Pleural space: There are small bilateral pleural effusions. Small pleural effusions. Heart: Normal. No cardiomegaly. No pericardial effusion. Aorta: Normal. No aortic aneurysm. Lymph nodes: Unremarkable. No enlarged lymph nodes. Bones/joints: Unremarkable. No acute fracture. Soft tissues: Unremarkable. IMPRESSION: No acute process. CHIKIS BARRON | Final Radiology Report Page 2 of 3 EXAM: CT Abdomen and Pelvis Without Contrast EXAM DATE/TIME: 04/20/2018 7:40 PM CLINICAL HISTORY: 77 years old, female; Injury or trauma and signs and symptoms; Fall; Initial encounter; Abdominal tenderness; Blunt; Generalized; Blunt trauma (contusions or hematomas); Other: Abd pain distention TECHNIQUE: Axial computed tomography images of the abdomen and pelvis without contrast. All CT scans at this facility use at least one of these dose optimization techniques: automated exposure control; mA and/or kV adjustment per patient size (includes targeted exams where dose is matched to clinical indication); or iterative reconstruction. Coronal and sagittal reformatted images were created and reviewed. COMPARISON: No relevant prior studies available. FINDINGS: Tubes, catheters and devices: There is trace fluid in the left lower quadrant adjacent to distal aspect of [employer] shunt catheter. Lower thorax: No acute findings. ABDOMEN: Liver: Normal. No mass. Gallbladder and bile ducts: There are tiny calcified gallstones Pancreas: Normal. No ductal dilation. Spleen: Normal. No splenomegaly. Adrenals: Normal. No mass. Kidneys and ureters: Multiple simple right renal cysts. Stomach and bowel: Normal. No obstruction. No mucosal thickening. Appendix: No evidence of appendicitis. PELVIS: Bladder: Unremarkable as visualized. Reproductive: Unremarkable as visualized. ABDOMEN and PELVIS: Intraperitoneal space: Normal. No free air. Bones/joints: No acute fracture. No dislocation. Soft tissues: There is small fat containing supraumbilical hernia. Vasculature: Normal. No abdominal aortic aneurysm. Lymph nodes: Normal. No enlarged lymph nodes. ANDERSON CHIKIS | Final Radiology Report CONFIDENTIALITY STATEMENT This report is intended only for use by the referring physician, and only in accordance with law. If you received this in error, call [phone]. Page 3 of 3 IMPRESSION: 1. No acute process 2. Cholelithiasis. COMMENT: Consistent with the [employer] Incidental Findings Committee Report (J Am Kerry Radiol 2010): Unless the patients specific circumstances suggest otherwise , any liver lesion 0.5 cm or less, any cystic kidney lesion less than 1.0 cm, and/or any adrenal lesion 1.0 cm or less not otherwise characterized in this report as possessing suspicious or indeterminate imaging features is/are highly likely to be benign and do not require follow-up imaging or biopsy. - Re-Assessments/Exams Free Text/Narrative Re-Assessment/Exam: 04/21/18 05:26 Up to [facility] with assist, C/o worsening of Usual back pain. Dr Ami HINES hospitalist admit observation , hypoglycemia and acute on chronic back pain Departure - Departure Time of Disposition: 22:55 Disposition: Refer to Observation Condition: Good Clinical Impression: Hypoglycemia, Chronic atrial fibrillation, Subtherapeutic anticoagulation, IDDM (insulin dependent diabetes mellitus) Abdominal pain Qualifiers: Abdominal location: right upper quadrant Qualified Code(s): R10.11 - Right upper quadrant pain - Discharge Information *PRESCRIPTION DRUG MONITORING PROGRAM REVIEWED*: Not Applicable *COPY OF PRESCRIPTION DRUG MONITORING REPORT IN PATIENT JOSE: Not Applicable - My Orders Last 24 Hours: My Active Orders 04/20/18 19:21 Blood Culture x2 Reflex Set [OM.PC] Stat 04/20/18 19:26 EKG 12 Lead [EKG Documentation Completion] [RC] ROUTINE 04/20/18 19:34 CULTURE BLOOD [BC] Stat 04/20/18 19:46 CULTURE BLOOD [BC] Stat 04/20/18 21:06 Glucose [Blood Glucose Check, Bedside] [RC] ONETIME - Assessment/Plan Last 24 Hours: My Active Orders 04/20/18 19:21 Blood Culture x2 Reflex Set [OM.PC] Stat 04/20/18 19:26 EKG 12 Lead [EKG Documentation Completion] [RC] ROUTINE 04/20/18 19:34 CULTURE BLOOD [BC] Stat 04/20/18 19:46 CULTURE BLOOD [BC] Stat 04/20/18 21:06 Glucose [Blood Glucose Check, Bedside] [RC] ONETIME"
[2018-04-20] MEDS ORDERED: traMADol 50 MG Tab PO ONE (21:32)
[2018-04-20] MEDS ORDERED: Sodium Chloride 0.9% 10 ML Syringe FLUSH PRN (23:57)
[2018-04-20] MEDS ORDERED: Meclizine 12.5 MG Tab PO PRN (23:58)
[2018-04-20] MEDS ORDERED: Albuterol 0.021% 0.63 MG/3 ML Neb Soln INH PRN (23:58)
[2018-04-20] MEDS ORDERED: Ondansetron 4 MG Tab.DIS PO PRN (23:58)
[2018-04-20] MEDS ORDERED: Amitriptyline 10 MG Tab PO PRN (23:58)
[2018-04-20] MEDS ORDERED: Acetaminophen 325 MG Tab PO PRN (23:58)
--- NOTE | 2018-04-21 00:17 | PCM.HP ---
H&P History of Present Illness - General Date of Service: 04/21/18 Admit Problem/Dx: Admission Diagnosis/Problem Admission Diagnosis/Problem Back pain Source of Information: Patient - History of Present Illness Initial Comments - Free Text/Narative: 77 yo F with PMH of morbid obesity, atrial fibrillation on coumadin, type 2 DM on insulin, gallstones, nephrolitithiasis, hypertension who p/w back pain. Patient was brought to the ER today by EMS. She reportedly passed out at home after having an episode of hypoglycemia. BG was 36 when checked. She is diabetic on insulin. She complains of chronic back pain, ongoing for weeks, 10/10 in intensity, takes tramadol at home with partial relief. Back pain radiates to the RUQ abdomen. Has history of gall stones and is being referred to the General Sx for this. Associated nausea but no vomiting. No hematuria, no dysuria. No chest pain. Has mild SOB, baseline. Has some bruises on the right lindsay. In the ED, had CT of the head, spine which were unremarkable. She also had CT abdomen which showed a normal sized gallbladder with few small calcified gallstones. Labwork shows mildly elevated WBC and increased ALP. ED requested admission for intractible pain. Back Pain Score (Numeric/FACES): 7 - Related Data Allergies/Adverse Reactions: Allergies Allergy/AdvReac Type Severity Reaction Status Date / Time codeine Allergy Severe Rash Verified 04/20/18 23:21 indomethacin [From Indocin] Allergy Severe Other Verified 04/20/18 23:21 Iodinated Contrast- Oral and Allergy Severe Other Verified 04/20/18 23:21 IV Dye [Iodinated Contrast Media - IV Dye] Penicillins Allergy Severe Hives Verified 04/20/18 23:21 pentazocine [From Talwin] Allergy Severe Delusions Verified 04/20/18 23:21 Sulfa (Sulfonamide Allergy Severe Hives Verified 04/20/18 23:21 Antibiotics) sulfamethoxazole Allergy Severe Hives Verified 04/20/18 23:21 [From Bactrim] trimethoprim [From Bactrim] Allergy Severe Hives Verified 04/20/18 23:21 ampicillin Allergy Intermediate Hives Verified 04/20/18 23:21 atorvastatin calcium Allergy Mild Muscle Verified 04/20/18 23:21 [From Lipitor] Aches duloxetine HCl Allergy Mild Nausea Verified 04/20/18 23:21 [From Cymbalta] indomethacin sodium Allergy Mild Headache Verified 04/20/18 23:21 [From Indocin] lactose Allergy Mild Diarrhea Verified 04/20/18 23:21 lisinopril Allergy Mild Cough Verified 04/20/18 23:21 metoprolol Allergy Mild Fatigue Verified 04/20/18 23:21 oxycodone [Oxycodone] Allergy Mild Other Verified 04/20/18 23:21 pravastatin Allergy Mild Muscle Verified 04/20/18 23:21 Aches simvastatin Allergy Mild Muscle Verified 04/20/18 23:21 Aches spironolactone Allergy Mild Headache Verified 04/20/18 23:21 tuberculin, purified protein Allergy Mild Rash Verified 04/20/18 23:21 deriva [tuberculin,purif.prot.deriv.] clindamycin Allergy Abdominal Verified 04/20/18 23:21 Pain clonazepam [From Klonopin] Allergy Other Verified 04/20/18 23:21 hydrochlorothiazide Allergy Lethargy Verified 04/20/18 23:21 tetanus toxoid, adsorbed Allergy Other Verified 04/20/18 23:21 zoster vaccine live Allergy Other Verified 04/20/18 23:21 flannel Allergy Burning Uncoded 04/20/18 23:21 Home Medications: Home Meds Isosorbide Mononitrate [Imdur] 60 mg PO DAILY 11/25/13 [History] LORazepam [Ativan] 0.5 mg PO BEDTIME 11/25/13 [History] Levothyroxine Sodium [Synthroid] 150 mcg PO ACBREAKFAST 11/25/13 [History] Nitroglycerin [Nitrostat] 0.4 mg SL Q5M PRN MDD 3 11/25/13 [History] Psyllium [Metamucil SF] 1 tbsp PO DAILY PRN 11/25/13 [History] amLODIPine Besylate [Amlodipine Besylate] 2.5 mg PO DAILY 11/25/13 [History] Acetaminophen 650 mg PO Q6HR PRN 03/28/15 [History] Albuterol [Proventil HFA] 2 inh INH ASDIRECTED PRN 03/28/15 [History] Potassium Chloride 40 meq PO QID 03/28/15 [History] Cholecalciferol (Vitamin D3) [Vitamin D3] 1,000 units PO TID 03/29/15 [History] Carvedilol [Coreg] 6.25 mg PO BIDMEALS 03/27/16 [History] Cyanocobalamin (Vitamin B12) [Vitamin B12] 100 mcg PO DAILY 03/27/16 [History] Hypromellose/PF [Retaine Hpmc 0.3% Eye Drops] 1 drop EYEBOTH QID PRN 03/27/16 [ History] Meclizine [Antivert] 25 mg PO QID PRN 03/27/16 [History] Pantoprazole Sodium [Protonix] 40 mg PO DAILY 03/27/16 [History] Docusate Sodium 100 mg PO BID 08/30/16 [History] Allopurinol [Zyloprim] 100 mg PO BID 05/02/17 [History] Bumetanide [Bumex] 2 mg PO TID 05/02/17 [History] Insulin Aspart [NovoLOG] 40 unit SUBCUT ACBREAKFAST 05/02/17 [History] Warfarin [Coumadin] 3 mg PO DAILY 05/02/17 [History] traMADol [Ultram] 50 mg PO DAILY PRN 05/02/17 [History] Albuterol [Proventil Neb Soln] 1 ampule INH Q6H PRN 04/10/18 [History] Amitriptyline [Elavil] 10 - 20 mg PO BEDTIME PRN 04/10/18 [History] Cinnamon Bark [Cinnamon] 1,000 mg PO DAILY 04/10/18 [History] Dextrose Tabs 16 g PO ASDIRECTED PRN 04/10/18 [History] Insulin Aspart [NovoLOG] 40 unit SUBCUT ACDINNER 04/10/18 [History] Insulin Aspart [NovoLOG] 40 unit SUBCUT ACLUNCH 04/10/18 [History] Insulin Detemir [Levemir] 80 unit SUBCUT BEDTIME 04/10/18 [History] Insulin Detemir [Levemir] 80 unit SUBCUT DAILY 04/10/18 [History] Ondansetron [Zofran] 4 mg PO Q6H PRN 04/10/18 [History] Pantothenic Acid 500 mg PO BEDTIME 04/10/18 [History] aMILoride HCl [Amiloride HCl] 5 mg PO DAILY 04/10/18 [History] metOLazone [Metolazone] 2.5 mg PO .TWICEWEEKLY 04/10/18 [History] Past Medical History HEENT History: Reports: Cataract, Impaired Vision, Other (See Below) Other HEENT History: HEARING LOSS TOTAL-RIGHT PARTIAL-LEFT, WEARS BILAT HEARING AIDES Cardiovascular History: Reports: Afib, Blood Clots/VTE/DVT, CAD, Heart Failure, Hypertension, HI, Stents, Other (See Below) Other Cardiovascular History: CAROTID ARTERY DISEASE. HEART FAILURE WITH PRESERVED EJECTION FRACTION. HYPERTENSIVE HEART DISEASE. TIA. ACUTE ON CHRONIC DIASTOLIC CONGESTIVE HEART FAILURE Respiratory History: Reports: Asthma, Bronchitis, Recurrent, Sleep Apnea Gastrointestinal History: Reports: Chronic Constipation, GERD, Hemorrhoids, Irritable Bowel Syndrome Other Gastrointestinal History: DENIES CONSTIPATION Genitourinary History: Reports: Chronic Renal Insuffiency, Renal Calculus, Other (See Below) Other Genitourinary History: CKD STAGE III DIAGNOSTIC RADIOLOGIST History: Reports: Other (See Below) Other OB/BYN History: UTERUS WAS ADHESED TO HER SPINE Musculoskeletal History: Reports: Back Pain, Chronic, Fracture, Osteoarthritis Other Musculoskeletal History: FRACTURED ARM WHEN SHE WAS YOUNG Neurological History: Reports: Headaches, Chronic, TIA, Other (See Below) Other Neuro History: NORMAL PRESSURE HYDROCEPHALUS. SUBDURAL HEMATOMA. lorazepam controls headaches from shunt Psychiatric History: Reports: Depression Endocrine/Metabolic History: Reports: Diabetes, Type II, Hypothyroidism, Obesity /BMI 30+, Osteoporosis, Vitamin D Deficiency Hematologic History: Reports: Blood Transfusion(s) Immunologic History: Reports: None Oncologic (Cancer) History: Reports: Malignant Melanoma Dermatologic History: Reports: None - Infectious Disease History Infectious Disease History: Reports: Chicken Pox, Measles, Mumps, Shingles, Other (See Below) Other Infectious Disease History: EXPOSED TO SOMETHING IN [place] IN LATE 70'S THAT AFFECTED LUNGS, CANT RMEMEBER - Past Surgical History Head Surgeries/Procedures: Reports: Shunt HEENT Surgical History: Reports: Adenoidectomy, Cataract Surgery, Tonsillectomy Other HEENT Surgeries/Procedures: PE TUBE PLACEMENT/REMOVAL RIGHT EAR. BILAT CATARACT EXTRACTION WITH LENS IMPLANTS Cardiovascular Surgical History: Reports: Carotid Endarterectomy, Coronary Artery Stent Other Cardiovascular Surgeries/Procedures: IVC FILTER PLACEMENT & REMOVAL Respiratory Surgical History: Reports: None GI Surgical History: Reports: Appendectomy, Colon, Colonoscopy, EGD, Polypectomy , Other (See Below) Other GI Surgeries/Procedures: large colon mostly resected - annotated redundant bowel Female Surgical History: Reports: Breast Biopsy, Cystectomy, Hysterectomy, Salpingo-Oophorectomy, Other (See Below) Other Female Surgeries/Procedures: breast cyst Endocrine Surgical History: Reports: None Neurological Surgical History: Reports: Other (See Below) Other Neurological Surgeries/Procedures: 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 2 CUPS TEA - Recreational Drug Use Recreational Drug Use: No - Living Situation & Occupation Living situation: Reports: with Family Occupation: Retired H&P Review of Systems - Review of Systems: Review Of Systems: ROS reveals no pertinent complaints other than HPI. General: Denies: Fever HEENT: Reports: No Symptoms Pulmonary: Reports: No Symptoms Cardiovascular: Reports: No Symptoms Gastrointestinal: Reports: No Symptoms Genitourinary: Reports: No Symptoms Musculoskeletal: Reports: Back Pain Skin: Reports: Other (right lindsay bruise) Psychiatric: Reports: No Symptoms Exam - Exam Exam: See Below - Vital Signs Vital Signs: Last Vital Signs Temp 35.1 C L 04/20/18 19:14 Pulse 77 04/20/18 19:14 Resp 20 04/20/18 19:14 BP 132/71 04/20/18 19:14 Pulse Ox 93 L 04/20/18 19:14 Weight: 112.179 kg - Exam General: Alert, Oriented HEENT: Conjunctiva Clear Neck: Supple, Trachea Midline Lungs: Clear to Auscultation Cardiovascular: Regular Rate, Regular Rhythm GI/Abdominal Exam: Normal Bowel Sounds Extremities: Redness, Other (right lindsay bruise, tenderness) - Patient Data Lab Results Last 24 hrs: Laboratory Results - last 24 hr 04/20/18 04/20/18 04/20/18 Range/Units 19:34 19:34 19:34 WBC 10.6 H (5.0-10.0) 10^3/uL RBC 4.47 (4.2-5.4) 10^6/uL Hgb 12.7 (12.0-16.0) g/dL Hct 42.0 (37.0-47.0) % MCV 94.0 (80-100) fL MCH 28.4 (27.0-34.0) pg MCHC 30.2 L (33.0-35.0) g/dL Plt Count 205 (150-450) 10^3/uL Neut % (Auto) 79.3 H (42.2-75.2) % Lymph % (Auto) 7.0 L (20.5-50.1) % Hernando % (Auto) 13.0 H (2-8) % Eos % (Auto) 0.4 L (1.0-3.0) % Baso % (Auto) 0.3 (0.0-1.0) % PT 11.5 D (9.0-12.0) SEC INR 1.2 (0.9-1.2) Sodium 139 (135-145) mmol/L Potassium 4.7 (3.6-5.0) mmol/L Chloride 104 (101-111) mmol/L Carbon Dioxide 25.0 (21.0-31.0) mmol/L Anion Gap 14.7 BUN 20 H (7-18) mg/dL Creatinine 1.1 (0.6-1.3) mg/dL Est Cr Clr Drug Dosing 33.87 mL/min Estimated GFR (MDRD) 48 BUN/Creatinine Ratio 18.18 Glucose 102 (74-105) mg/dL POC Glucose (83-110) mg/dl Calcium 9.6 (8.4-10.2) mg/dl Total Bilirubin 1.1 H (0.2-1.0) mg/dL AST 73 H (10-42) IU/L ALT 36 (10-60) IU/L Alkaline Phosphatase 180 H (42-121) IU/L Creatine Kinase (26-174) IU/L CK-MB (CK-2) (0.4-4.7) ng/mL Troponin I 0.03 H* (0.00-0.02) ng/ml Total Protein 7.4 (6.7-8.2) g/dl Albumin 3.6 (3.2-5.5) g/dl Globulin 3.8 Albumin/Globulin Ratio 0.95 Amylase (28-100) U/L Urine Color (YELLOW) Urine Appearance (CLEAR) Urine pH (5.0-9.0) Ur Specific Warren (1.005-1.030) Urine Protein (NEGATIVE) Urine Glucose (UA) (NEGATIVE) Urine Ketones (NEGATIVE) Urine Occult Blood (NEGATIVE) Urine Nitrite (NEGATIVE) Urine Bilirubin (NEGATIVE) Urine Urobilinogen (0.2-1.0) mg/dL Ur Leukocyte Esterase (NEGATIVE) Urine RBC /HPF Urine WBC (0-5/HPF) /HPF Ur Epithelial Cells /HPF Urine Bacteria (0-FEW/HPF) /HPF Hyaline Casts /LPF Fine Granular Casts (0/LPF) /LPF 04/20/18 04/20/18 04/20/18 Range/Units 19:34 19:34 19:34 WBC (5.0-10.0) 10^3/uL RBC (4.2-5.4) 10^6/uL Hgb (12.0-16.0) g/dL Hct (37.0-47.0) % MCV (80-100) fL MCH (27.0-34.0) pg MCHC (33.0-35.0) g/dL Plt Count (150-450) 10^3/uL Neut % (Auto) (42.2-75.2) % Lymph % (Auto) (20.5-50.1) % Hernando % (Auto) (2-8) % Eos % (Auto) (1.0-3.0) % Baso % (Auto) (0.0-1.0) % PT (9.0-12.0) SEC INR (0.9-1.2) Sodium (135-145) mmol/L Potassium (3.6-5.0) mmol/L Chloride (101-111) mmol/L Carbon Dioxide (21.0-31.0) mmol/L Anion Gap BUN (7-18) mg/dL Creatinine (0.6-1.3) mg/dL Est Cr Clr Drug Dosing mL/min Estimated GFR (MDRD) BUN/Creatinine Ratio Glucose (74-105) mg/dL POC Glucose (83-110) mg/dl Calcium (8.4-10.2) mg/dl Total Bilirubin (0.2-1.0) mg/dL AST (10-42) IU/L ALT (10-60) IU/L Alkaline Phosphatase (42-121) IU/L Creatine Kinase 74 (26-174) IU/L CK-MB (CK-2) 3.90 (0.4-4.7) ng/mL Troponin I (0.00-0.02) ng/ml Total Protein (6.7-8.2) g/dl Albumin (3.2-5.5) g/dl Globulin Albumin/Globulin Ratio Amylase 61 (28-100) U/L Urine Color (YELLOW) Urine Appearance (CLEAR) Urine pH (5.0-9.0) Ur Specific Warren (1.005-1.030) Urine Protein (NEGATIVE) Urine Glucose (UA) (NEGATIVE) Urine Ketones (NEGATIVE) Urine Occult Blood (NEGATIVE) Urine Nitrite (NEGATIVE) Urine Bilirubin (NEGATIVE) Urine Urobilinogen (0.2-1.0) mg/dL Ur Leukocyte Esterase (NEGATIVE) Urine RBC /HPF Urine WBC (0-5/HPF) /HPF Ur Epithelial Cells /HPF Urine Bacteria (0-FEW/HPF) /HPF Hyaline Casts /LPF Fine Granular Casts (0/LPF) /LPF 04/20/18 04/20/18 Range/Units 21:08 22:15 WBC (5.0-10.0) 10^3/uL RBC (4.2-5.4) 10^6/uL Hgb (12.0-16.0) g/dL Hct (37.0-47.0) % MCV (80-100) fL MCH (27.0-34.0) pg MCHC (33.0-35.0) g/dL Plt Count (150-450) 10^3/uL Neut % (Auto) (42.2-75.2) % Lymph % (Auto) (20.5-50.1) % Hernando % (Auto) (2-8) % Eos % (Auto) (1.0-3.0) % Baso % (Auto) (0.0-1.0) % PT (9.0-12.0) SEC INR (0.9-1.2) Sodium (135-145) mmol/L Potassium (3.6-5.0) mmol/L Chloride (101-111) mmol/L Carbon Dioxide (21.0-31.0) mmol/L Anion Gap BUN (7-18) mg/dL Creatinine (0.6-1.3) mg/dL Est Cr Clr Drug Dosing mL/min Estimated GFR (MDRD) BUN/Creatinine Ratio Glucose (74-105) mg/dL POC Glucose 157 H (83-110) mg/dl Calcium (8.4-10.2) mg/dl Total Bilirubin (0.2-1.0) mg/dL AST (10-42) IU/L ALT (10-60) IU/L Alkaline Phosphatase (42-121) IU/L Creatine Kinase (26-174) IU/L CK-MB (CK-2) (0.4-4.7) ng/mL Troponin I (0.00-0.02) ng/ml Total Protein (6.7-8.2) g/dl Albumin (3.2-5.5) g/dl Globulin Albumin/Globulin Ratio Amylase (28-100) U/L Urine Color Yellow (YELLOW) Urine Appearance Clear (CLEAR) Urine pH 5.5 (5.0-9.0) Ur Specific Warren 1.020 (1.005-1.030) Urine Protein 100 H (NEGATIVE) Urine Glucose (UA) Negative (NEGATIVE) Urine Ketones Negative (NEGATIVE) Urine Occult Blood Trace-intact H (NEGATIVE) Urine Nitrite Negative (NEGATIVE) Urine Bilirubin Negative (NEGATIVE) Urine Urobilinogen 0.2 (0.2-1.0) mg/dL Ur Leukocyte Esterase Negative (NEGATIVE) Urine RBC 0-5 /HPF Urine WBC 0-5 (0-5/HPF) /HPF Ur Epithelial Cells Few /HPF Urine Bacteria Few (0-FEW/HPF) /HPF Hyaline Casts Few H /LPF Fine Granular Casts Few H (0/LPF) /LPF Result Diagrams: 04/20/18 19:34 04/20/18 19:34 Problem List Initiated/Reviewed/Updated: Yes Orders Last 24hrs: Active Orders 24 hr Category Date Time Status Patient Status [ADT] Routine ADT 04/20/18 23:57 Ordered Accu Check [Blood Glucose Check, Bedside] [] Care 04/21/18 00:08 Ordered QIDACANDBED Ambulate [RC] ASDIRECTED Care 04/20/18 23:57 Ordered EKG 12 Lead [EKG Documentation Completion] [] ROUTINE Care 04/20/18 19:26 Active Glucose [Blood Glucose Check, Bedside] [RC] ONETIME Care 04/20/18 21:06 Active Height and Weight [] DAILY Care 04/20/18 23:57 Ordered Oxygen Therapy [RC] PRN Care 04/20/18 23:57 Ordered Peripheral IV Care [RC] . DIRECTED Care 04/20/18 23:57 Ordered Up With Assistance [RC] ASDIRECTED Care 04/20/18 23:57 Ordered VTE/DVT Education [] PER UNIT ROUTINE Care 04/20/18 23:57 Ordered Vital Signs [] Q4H Care 04/20/18 23:57 Ordered Regular Diet [DIET] Diet 04/20/18 Breakfast Ordered CULTURE BLOOD [] Stat Lab 04/20/18 19:34 Received CULTURE BLOOD [] Stat Lab 04/20/18 19:46 Received Acetaminophen [Tylenol] Med 04/20/18 23:58 Ordered 650 mg PO Q6HR PRN Albuterol [Proventil Neb Soln] Med 04/20/18 23:58 Ordered 1 ampule INH Q6H PRN Allopurinol [Zyloprim] Med 04/21/18 09:00 Ordered 100 mg PO BID Amitriptyline [Elavil] Med 04/20/18 23:58 Ordered 10 mg PO BEDTIME PRN Bumetanide [Bumex] Med 04/21/18 09:00 Ordered 2 mg PO TID Carvedilol [Coreg] Med 04/21/18 08:00 Ordered 6.25 mg PO BIDMEALS Cholecalciferol (Vitamin D3) [Vitamin D3] Med 04/21/18 09:00 Ordered 1,000 units PO TID Cyanocobalamin (Vitamin B12) [Vitamin B12] Med 04/21/18 09:00 Ordered 100 mcg PO DAILY Docusate Sodium [Colace] Med 04/21/18 09:00 Ordered 100 mg PO BID Insulin Lispro [HumaLOG] Med 04/21/18 08:00 Ordered See Protocol SUBCUT TIDMEALS Isosorbide Mononitrate [Imdur] Med 04/21/18 09:00 Ordered 60 mg PO DAILY Levothyroxine Med 04/21/18 06:00 Ordered 150 mcg PO ACBREAKFAST Meclizine [Antivert] Med 04/20/18 23:58 Ordered 25 mg PO QID PRN Ondansetron Med 04/20/18 23:58 Ordered 4 mg PO Q6H PRN Pantoprazole [ProTONIX] Med 04/21/18 09:00 Ordered 40 mg PO DAILY Pantothenic Acid [Pantothenic Acid] Med 04/21/18 21:00 Ordered 500 mg PO BEDTIME Sodium Chloride 0.9% [Saline Flush] Med 04/20/18 23:57 Ordered 10 ml FLUSH ASDIRECTED PRN Warfarin [Coumadin] Med 04/21/18 00:15 Ordered 3 mg PO DAILY aMILoride HCl Med 04/21/18 09:00 Ordered 5 mg PO DAILY amLODIPine Besylate [Amlodipine Besylate] Med 04/21/18 09:00 Ordered 2.5 mg PO DAILY traMADol [Ultram] Med 04/20/18 23:58 Ordered 50 mg PO TID PRN Blood Culture x2 Reflex Set [OM.PC] Stat Oth 04/20/18 19:21 Ordered Peripheral IV Insertion Adult [OM.PC] Routine Oth 04/20/18 23:57 Ordered Saline Lock Insert [OM.PC] Routine Oth 04/20/18 23:57 Ordered Resuscitation Status Routine Resus Stat 04/20/18 23:57 Ordered Medication Orders Acetaminophen (Tylenol) 650 mg PO Q6HR PRN PRN Reason: Pain (mild 1-3) Albuterol (Proventil Neb Soln) mg INH Q6H PRN PRN Reason: Wheezing Allopurinol (Zyloprim) 100 mg PO BID [facility] Amitriptyline HCl (Elavil) 10 mg PO BEDTIME PRN PRN Reason: Insomnia Bumetanide (Bumex) 2 mg PO TID [facility] Carvedilol (Coreg) 6.25 mg PO BIDMEALS [facility] Docusate Sodium (Colace) 100 mg PO BID [facility] Insulin Human Lispro (Humalog) 0 unit SUBCUT TIDMEALS [facility]; Protocol Isosorbide Mononitrate (Imdur) 60 mg PO DAILY [facility] Levothyroxine Sodium (Levothyroxine) 150 mcg PO ACBREAKFAST [facility] Non-Formulary Medication (Amiloride Hcl) 5 mg PO DAILY [facility] Non-Formulary Medication (Amlodipine Besylate [Amlodipine Besylate]) 2.5 mg PO DAILY [facility] Non-Formulary Medication (Cholecalciferol (Vitamin D3) [Vitamin D3]) 1,000 units PO TID [facility] Non-Formulary Medication (Cyanocobalamin (Vitamin B12) [Vitamin B12]) 100 mcg PO DAILY [facility] Non-Formulary Medication (Meclizine [Antivert]) 25 mg PO QID PRN PRN Reason: vertigo Non-Formulary Medication (Ondansetron) 4 mg PO Q6H PRN PRN Reason: Nausea Non-Formulary Medication (Pantothenic Acid [Pantothenic Acid]) 500 mg PO BEDTIME [facility] Pantoprazole Sodium (Protonix) 40 mg PO DAILY [facility] Sodium Chloride (Saline Flush) 10 ml FLUSH ASDIRECTED PRN PRN Reason: Keep Vein Open Tramadol HCl (Ultram) 50 mg PO TID PRN PRN Reason: Pain (severe 7-10) Warfarin Sodium (Coumadin) 3 mg PO DAILY [facility] Assessment/Plan Comment:: #Type 2 DM #Hypoglycemia Hypoglycemia likely to insulin use. Will need adjustment of insulin regimen will hold home insulin dose for now accuchecks, tid and ac insulin sliding scale for now carb controlled diet check Hb A1c, aim for HbA1c of around 8% given patient's age #back pain likely chronic back pain continue pain mgt PT/OT #Gallstones #increased ALP recheck LFTs in the AM hold abx for now will recommend outpatient General sx referral #Atrial fibrillation rate control: continue coreg AC: continue coumadin #HTN continue home BP meds #DVT ppx on coumadin #FC
[2018-04-21] MEDS: traMADol 50 MG Tab PO PRN ×3 (00:53→20:32)
[2018-04-21] MEDS: Levothyroxine 150 MCG Tab PO SCH (05:29)
[2018-04-21] MEDS: Pantoprazole 40 MG Tab.CR PO SCH (05:29)
[2018-04-21 06:50] LABS: ANION GAP 15.8
[2018-04-21] MEDS ORDERED: Albuterol/Ipratropium 3.0-0.5 MG/3 ML Neb Soln NEB PRN (07:03)
[2018-04-21] MEDS ORDERED: AMILORIDE HCL 5 MG PO SCH (09:00)
[2018-04-21] MEDS: Cyanocobalamin (Vitamin B12) 100 MCG Tab PO SCH (10:00)
[2018-04-21] MEDS: Isosorbide Mononitrate 60 MG Tab.ER PO SCH (10:00)
[2018-04-21] MEDS: Bumetanide 1 MG Tab PO SCH ×3 (10:00→17:02)
[2018-04-21] MEDS: Allopurinol 100 MG Tab PO SCH ×2 (10:01→20:28)
[2018-04-21] MEDS: Docusate Sodium 100 MG Cap PO SCH ×2 (10:01→20:29)
[2018-04-21] MEDS: Carvedilol 6.25 MG Tab PO SCH ×2 (10:01→17:02)
[2018-04-21] MEDS: Cholecalciferol (Vitamin D3) 400 Unit Tab PO SCH ×3 (10:01→20:29)
[2018-04-21] MEDS: amLODIPine 5 MG Tab PO SCH (10:01)
[2018-04-21] MEDS: Insulin Lispro 100 Units/ML 3 ML Vial SUBCUT SCH ×3 (10:02→17:09)
[2018-04-21] MEDS: Insulin Glarg,Human.Rec.Analog 100 UNIT/ML ML SUBCUT SCH ×2 (10:02→17:08)
--- NOTE | 2018-04-21 11:52 | CT ---
Addendum report: Abnormalities CT exam head 20 April 2018 unchanged when compared directly back to previous CT exams 20 May and May,.
[2018-04-21] MEDS ORDERED: PANTOTHENIC ACID 500 MG PO SCH (21:00)
[2018-04-22] MEDS: Pantoprazole 40 MG Tab.CR PO SCH (06:27)
[2018-04-22] MEDS: Levothyroxine 150 MCG Tab PO SCH (06:27)
[2018-04-22] MEDS ORDERED: Insulin Glarg,Human.Rec.Analog 100 UNIT/ML ML SUBCUT SCH (07:30)
[2018-04-22] MEDS: Insulin Lispro 100 Units/ML 3 ML Vial SUBCUT SCH ×2 (09:05→12:14)
[2018-04-22] MEDS: Bumetanide 1 MG Tab PO SCH ×2 (09:09→12:14)
[2018-04-22] MEDS: Cyanocobalamin (Vitamin B12) 100 MCG Tab PO SCH (09:09)
[2018-04-22] MEDS: Isosorbide Mononitrate 60 MG Tab.ER PO SCH (09:09)
[2018-04-22] MEDS: Cholecalciferol (Vitamin D3) 400 Unit Tab PO SCH ×2 (09:10→15:26)
[2018-04-22] MEDS: amLODIPine 5 MG Tab PO SCH (09:11)
[2018-04-22] MEDS: Carvedilol 6.25 MG Tab PO SCH (09:12)
[2018-04-22] MEDS: Docusate Sodium 100 MG Cap PO SCH (09:13)
[2018-04-22] MEDS: Allopurinol 100 MG Tab PO SCH (09:13)
--- NOTE | 2018-04-22 12:26 | PCM.DCSUM1 ---
Discharge Summary - Hospital Course Free Text/Narrative:: 77 yo F with PMH of morbid obesity, atrial fibrillation on coumadin, type 2 DM on insulin, gallstones, nephrolitithiasis, hypertension who p/w back pain. Patient was brought to the ER today by EMS. She reportedly passed out at home after having an episode of hypoglycemia. BG was 36 when checked. She is diabetic on insulin. The patient was admitted to the hospital and we reduced the doses of insulin glargine and NovoLog. Blood sugar has improved and the patient is feeling better. The patient will be discharged on lower doses of insulin. She was noted to be short of breath and kept on bronchodilators. She required supplemental oxygen. Attempt to wean off oxygen was unsuccessful. We tried bronchodilators and incentive spirometry and there we are unsuccessful. We will obtain the walking desaturation study. The patient was saturating at 92% at rest. She started activity and desaturated down to 83% at 1.5 minutes. At 2 minutes exercise she was down to 83%. Oxygen saturation continued to hover between 83-89%. She was placed on supplemental oxygen 2 L/m and saturation went up to 92%. Final diagnoses: Hypoglycemia COPD with possible exacerbation Asthma Hypertension - Discharge Data Discharge Date: 04/22/18 Discharge Disposition: Home, Self-Care 01 Condition: Stable - Patient Summary/Data Consults: Consultations 04/21/18 00:22 OT Evaluation and Treatment [CONS] Routine PT Evaluation and Treatment [CONS] Routine - Patient Instructions Diet: Diabetic Diet Activity: As Tolerated Notify Provider of: Fever, Swelling and Redness, Nausea and/or Vomiting - Discharge Plan *PRESCRIPTION DRUG MONITORING PROGRAM REVIEWED*: Not Applicable *COPY OF PRESCRIPTION DRUG MONITORING REPORT IN PATIENT JOSE: Not Applicable Home Medications: Home Meds Isosorbide Mononitrate [Imdur] 60 mg PO DAILY 11/25/13 [History] LORazepam [Ativan] 0.5 mg PO BEDTIME 11/25/13 [History] Levothyroxine Sodium [Synthroid] 150 mcg PO ACBREAKFAST 11/25/13 [History] Nitroglycerin [Nitrostat] 0.4 mg SL Q5M PRN MDD 3 11/25/13 [History] Psyllium [Metamucil SF] 1 tbsp PO DAILY PRN 11/25/13 [History] amLODIPine Besylate [Amlodipine Besylate] 2.5 mg PO DAILY 11/25/13 [History] Acetaminophen 650 mg PO Q6HR PRN 03/28/15 [History] Albuterol [Proventil HFA] 2 inh INH ASDIRECTED PRN 03/28/15 [History] Potassium Chloride 40 meq PO QID 03/28/15 [History] Cholecalciferol (Vitamin D3) [Vitamin D3] 1,000 units PO TID 03/29/15 [History] Carvedilol [Coreg] 6.25 mg PO BIDMEALS 03/27/16 [History] Cyanocobalamin (Vitamin B12) [Vitamin B12] 100 mcg PO DAILY 03/27/16 [History] Hypromellose/PF [Retaine Hpmc 0.3% Eye Drops] 1 drop EYEBOTH QID PRN 03/27/16 [ History] Meclizine [Antivert] 25 mg PO QID PRN 03/27/16 [History] Pantoprazole Sodium [Protonix] 40 mg PO DAILY 03/27/16 [History] Docusate Sodium 100 mg PO BID 08/30/16 [History] Allopurinol [Zyloprim] 100 mg PO BID 05/02/17 [History] Bumetanide [Bumex] 2 mg PO TID 05/02/17 [History] Warfarin [Coumadin] 3 mg PO DAILY 05/02/17 [History] traMADol [Ultram] 50 mg PO DAILY PRN 05/02/17 [History] Albuterol [Proventil Neb Soln] 1 ampule INH Q6H PRN 04/10/18 [History] Amitriptyline [Elavil] 10 - 20 mg PO BEDTIME PRN 04/10/18 [History] Cinnamon Bark [Cinnamon] 1,000 mg PO DAILY 04/10/18 [History] Dextrose Tabs 16 g PO ASDIRECTED PRN 04/10/18 [History] Insulin Detemir [Levemir] 80 unit SUBCUT BEDTIME 04/10/18 [History] Ondansetron [Zofran] 4 mg PO Q6H PRN 04/10/18 [History] Pantothenic Acid 500 mg PO BEDTIME 04/10/18 [History] aMILoride HCl [Amiloride HCl] 5 mg PO DAILY 04/10/18 [History] metOLazone [Metolazone] 2.5 mg PO .TWICEWEEKLY 04/10/18 [History] Insulin Glarg,Human.Rec.Analog [Lantus] 50 unit SUBCUT BIDAC@0730,1700 ml 04/22 [Rx] Insulin Lispro [HumaLOG] 30 unit SUBCUT TIDMEALS vial 04/22/18 [Rx] Patient Handouts: Fall Prevention in the Home, [id number], Home Oxygen Use, Adult, Back Pain, Adult, [id number] Referrals: PCP,None [Primary Care Provider] - - Discharge Summary/Plan Comment DC Time >30 min.: Yes - Review of Systems General: Reports: No Symptoms Pulmonary: Reports: Cough Cardiovascular: Reports: No Symptoms Gastrointestinal: Reports: No Symptoms Musculoskeletal: Reports: No Symptoms, Joint Pain - Patient Data Vitals - Most Recent: Last Vital Signs Temp 37.0 C 04/22/18 07:00 Pulse 95 04/22/18 09:12 Resp 20 04/22/18 07:00 BP 132/68 04/22/18 09:12 Pulse Ox 98 04/22/18 07:00 Weight - Most Recent: 111.448 kg I&O - Last 24 hours: Intake & Output 04/21/18 04/22/18 04/22/18 22:59 06:59 14:59 Intake Total 550 360 Output Total 1200 550 200 Balance -1200 0 160 Lab Results - Last 24 hrs: Laboratory Results - last 24 hr 04/21/18 04/21/18 04/21/18 Range/Units 06:10 06:10 16:57 POC Glucose 152 H (83-110) mg/dl Estimat Average Glucose 324 mg/dl Hemoglobin A1c 12.9 H (4.4-6.3) % Lactic Acid 1.6 (0.5-2.2) mmol/L Total Bilirubin (0.2-1.0) mg/dL Direct Bilirubin (0.0-0.2) mg/dL Indirect Bilirubin AST (10-42) IU/L ALT (10-60) IU/L Alkaline Phosphatase (42-121) IU/L Total Protein (6.7-8.2) g/dl Albumin (3.2-5.5) g/dl Globulin Albumin/Globulin Ratio 04/21/18 04/22/18 04/22/18 Range/Units 21:22 07:09 10:20 POC Glucose 163 H 151 H (83-110) mg/dl Estimat Average Glucose mg/dl Hemoglobin A1c (4.4-6.3) % Lactic Acid (0.5-2.2) mmol/L Total Bilirubin 1.0 (0.2-1.0) mg/dL Direct Bilirubin 0.2 (0.0-0.2) mg/dL Indirect Bilirubin 0.8 AST 48 H (10-42) IU/L ALT 28 (10-60) IU/L Alkaline Phosphatase 154 H (42-121) IU/L Total Protein 6.3 L (6.7-8.2) g/dl Albumin 3.1 L (3.2-5.5) g/dl Globulin 3.2 Albumin/Globulin Ratio 0.97 04/22/18 Range/Units 11:18 POC Glucose 280 H (83-110) mg/dl Estimat Average Glucose mg/dl Hemoglobin A1c (4.4-6.3) % Lactic Acid (0.5-2.2) mmol/L Total Bilirubin (0.2-1.0) mg/dL Direct Bilirubin (0.0-0.2) mg/dL Indirect Bilirubin AST (10-42) IU/L ALT (10-60) IU/L Alkaline Phosphatase (42-121) IU/L Total Protein (6.7-8.2) g/dl Albumin (3.2-5.5) g/dl Globulin Albumin/Globulin Ratio JORJE Results - Last 24 hrs: Microbiology 04/20/18 19:34 Aerobic Blood Culture - Preliminary Blood - Venous NO GROWTH AFTER 1 DAY Anaerobic Blood Culture - Preliminary NO GROWTH AFTER 1 DAY 04/20/18 19:46 Aerobic Blood Culture - Preliminary Blood - Venous - Lab Draw NO GROWTH AFTER 1 DAY Anaerobic Blood Culture - Preliminary NO GROWTH AFTER 1 DAY 04/21/18 12:18 Influenza Type A Antigen Screen - Final Nasopharyngeal Swab NEGATIVE INFLUENZA A VIRUS AG Influenza Type B Antigen Screen - Final NEGATIVE INFLUENZA B VIRUS AG Med Orders - Current: Current Medications Acetaminophen (Tylenol) 650 mg PO Q6H PRN PRN Reason: Pain (mild 1-3) Last Admin: 04/21/18 17:03 Dose: 650 mg Albuterol/Ipratropium (Duoneb 3.0-0.5 Mg/3 Ml) 3 ml NEB Q6HRRT PRN PRN Reason: Shortness of Breath Allopurinol (Zyloprim) 100 mg PO BID [facility] Last Admin: 04/22/18 09:13 Dose: 100 mg Amitriptyline HCl (Elavil) 10 mg PO BEDTIME PRN PRN Reason: Insomnia Amlodipine Besylate (Norvasc) 2.5 mg PO DAILY [facility] Last Admin: 04/22/18 09:11 Dose: 2.5 mg Bumetanide (Bumex) 2 mg PO TID@0900,1200,1600 [facility] Last Admin: 04/22/18 12:14 Dose: 2 mg Carvedilol (Coreg) 6.25 mg PO BIDMEALS [facility] Last Admin: 04/22/18 09:12 Dose: 6.25 mg Cholecalciferol (Vitamin D3) 1,000 units PO TID [facility] Last Admin: 04/22/18 09:10 Dose: 1,000 units Cyanocobalamin (Vitamin B12) 100 mcg PO DAILY [facility] Last Admin: 04/22/18 09:09 Dose: 100 mcg Docusate Sodium (Colace) 100 mg PO BID [facility] Last Admin: 04/22/18 09:13 Dose: 100 mg Insulin Glargine (Lantus) 50 unit SUBCUT BIDAC@0730,1700 [facility] Last Admin: 04/22/18 09:00 Dose: 50 units Insulin Human Lispro (Humalog) 0 unit SUBCUT TIDMEALS [facility]; Protocol Last Admin: 04/22/18 12:14 Dose: 9 units Isosorbide Mononitrate (Imdur) 60 mg PO DAILY [facility] Last Admin: 04/22/18 09:09 Dose: 60 mg Levothyroxine Sodium (Levothyroxine) 150 mcg PO ACBREAKFAST [facility] Last Admin: 04/22/18 06:27 Dose: 150 mcg Meclizine HCl (Antivert) 25 mg PO QID PRN PRN Reason: vertigo Non-Formulary Medication (Amiloride Hcl) 5 mg PO DAILY [facility] Non-Formulary Medication (Pantothenic Acid [Pantothenic Acid]) 500 mg PO BEDTIME [facility] Ondansetron HCl (Zofran Odt) 4 mg PO Q6H PRN PRN Reason: Nausea Last Admin: 04/21/18 17:02 Dose: 4 mg Pantoprazole Sodium (Protonix) 40 mg PO ACBREAKFAST [facility] Last Admin: 04/22/18 06:27 Dose: 40 mg Sodium Chloride (Saline Flush) 10 ml FLUSH ASDIRECTED PRN PRN Reason: Keep Vein Open Last Admin: 04/21/18 21:36 Dose: 10 ml Tramadol HCl (Ultram) 50 mg PO TID PRN PRN Reason: Pain (severe 7-10) Last Admin: 04/21/18 20:32 Dose: 50 mg Warfarin Sodium (Coumadin) 3 mg PO DAILY@1400 [facility] Last Admin: 04/21/18 14:20 Dose: 3 mg Discontinued Medications Albuterol (Proventil Neb Soln) 0.63 mg INH Q6H PRN PRN Reason: Wheezing Insulin Glargine (Lantus) 50 unit SUBCUT BIDAC [facility] Last Admin: 04/21/18 17:08 Dose: 50 units Tramadol HCl (Ultram) 50 mg PO ONETIME ONE Stop: 04/20/18 21:33 Last Admin: 04/20/18 21:37 Dose: 50 mg - Exam Quality Assessment: Reports: Supplemental Oxygen General: Reports: Alert, Oriented Neck: Reports: Supple Lungs: Reports: Decreased Breath Sounds Cardiovascular: Reports: Regular Rate, Regular Rhythm GI/Abdominal Exam: Soft, Non-Tender Extremities: Normal Inspection
[2018-04-22 13:31] VITALS: BP 142/69
--- NOTE | 2018-04-23 11:59 | PN ---
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 She was found on the floor of her home by a family member. EMS states that her initial blood sugar was 36. She was able to take oral glucose supplement, as she had poor venous access. She was brought to the emergency room for further evaluation. She stated that her blood sugar had been more than 200 on the morning of admission. She had recently seen Dr. Tovar who made adjustments in her diabetic management. Her most recent A1c was greater than 14%. She is currently taking rather large doses of insulin; 80 units of Levemir twice a day and 50 units of NovoLog with each meal, plus supplemental NovoLog for sugars over a certain level. Her oral intake had been lower lately because of ongoing gallbladder problems. She recently had a colonoscopy and had been eating less. Lab work at the time of admission showed a white count of 10.6, with a slight left shift. Electrolytes were normal. Admission blood sugar was 157, but has risen into the 300s overnight, but she also has not gotten her usual insulin, which we will restart today. Urinalysis was unremarkable. Influenza A and B screening at admission had been negative as well. Review of her clinical data shows that she is drinking adequate fluids. She is voiding. Her appetite has improved, and she is tolerating her diet. OBJECTIVE: Vital Signs: Have been stable, and she has remained afebrile. Blood pressure is 123/70, pulse is 90, respiratory rate 20, oxygen saturation 97% on room air, and she is afebrile, and weight 245 pounds 11 ounces. General: On exam, she is seated comfortably at the side of her bed. Her sister, Latoya, is present as well. 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 She is rather concerned, however, about her gallbladder situation apparently. She feels it needs to come out, but they have had issues with finding a surgeon who was willing to perform the cholecystectomy, given her multiple medical issues, as well as her morbid obesity. She does not appear to be in any distress, and she denied any issues with pain. HEENT: Unremarkable. ENT was clear. Sclerae were nonicteric. Chest: Diminished bilateral breath sounds. Heart: Regular rate and rhythm. Abdomen: Morbidly obese and benign. Neurologic: Intact. LABORATORY DATA: Repeat labs this morning showed a normal white count of 8.8 and normal differential. Hemoglobin and hematocrit of 11 and 37.6. Electrolytes were normal. Blood sugars since admission have risen now that she is eating and were in the 300s today. LFTs are unchanged. Two sets of blood cultures collected at admission showed no growth after 2 days. PLAN: For her elevated blood sugars, we are going to start her back on insulin. She was on 80 units twice a day of Levemir at home, but we will back this down a bit, and we have started her on 50 units twice a day of Lantus. We will continue to follow her blood sugars. Her afternoon blood sugar was much improved at 152. Otherwise, we will continue her care as started by the admitting hospitalist. She currently is in observation. If she continues to do well, she will most likely be discharged to home in the next day or so. As mentioned, they are waiting followup regarding possible surgical consult. No other changes are made in her care today. [facility] /[id number] ANANDA
== END 2018-04-22 16:05 | disposition home or self-care (01) ==
LOC: DL.ED 19:12 → DL.MS 23:07 → UNDOADMOB 23:07 → DL.MS 23:57
PROVIDERS: ADMIT Hospitalist; ATTEND Hospitalist
DX: E11.649 Type 2 diabetes mellitus with hypoglycemia without coma (principal); J44.9 Chronic obstructive pulmonary disease, unspecified; E66.01 Morbid (severe) obesity due to excess calories; Z68.41 Body mass index [BMI] 40.0-44.9, adult; I48.2 Chronic atrial fibrillation; G47.30 Sleep apnea, unspecified; K58.1 Irritable bowel syndrome with constipation; I13.0 Hypertensive heart and chronic kidney disease with heart failure and stage 1 through stage 4 chronic kidney disease, or unspecified chronic kidney disease; E11.22 Type 2 diabetes mellitus with diabetic chronic kidney disease; I50.33 Acute on chronic diastolic (congestive) heart failure; N18.3 Chronic kidney disease, stage 3 (moderate); E03.9 Hypothyroidism, unspecified; M54.9 Dorsalgia, unspecified; N20.0 Calculus of kidney; K80.20 Calculus of gallbladder without cholecystitis without obstruction; Z88.0 Allergy status to penicillin; Z88.2 Allergy status to sulfonamides; Z88.7 Allergy status to serum and vaccine; Z88.5 Allergy status to narcotic agent; Z88.8 Allergy status to other drugs, medicaments and biological substances; Z91.041 Radiographic dye allergy status; Z87.891 Personal history of nicotine dependence; Z79.01 Long term (current) use of anticoagulants; Z79.4 Long term (current) use of insulin; Z79.899 Other long term (current) drug therapy
CPT/HCPCS: 36415; 70450; 71250; 72128; 72131; 74176; 80053; 80076; 81001; 82150; 82550; 82553; 82962; 83036; 83605; 84484; 85025; 85610; 87040; 87804; 93005; 94618; 94760; 97162-GP; 97165-GO; 99285; A9270-GY; G0378; J1815; J1815-GY

== ENCOUNTER 2018-11-08 10:47 | Emergency (ER) | payer BC, OTHER ==
[2018-11-08 11:06] VITALS: BP 134/62; PULSE 101
--- NOTE | 2018-11-08 11:27 | EDM.PDOC ---
ED HPI GENERAL MEDICAL PROBLEM - General Chief Complaint: Syncope Stated Complaint: FALL Time Seen by Provider: 11/08/18 11:27 Source of Information: Reports: Patient History Limitations: Reports: No Limitations - History of Present Illness INITIAL COMMENTS - FREE TEXT/NARRATIVE: Pt to ER per POV with c/o pain after a syncopal episode. Patient states she was getting out of the shower this morning and at about 0800 and was drying off. She states she "passed out" and fell backward into the shower. Patient states she does not recall the entire event. States she woke up laying in the tub. States she thinks she hit her head. States she took Tylenol for this and this is helping the headache. Patient denies having had, or presently having chest pain or SOB, N/V/D. Denies fever/chills, recent illness. States hx of DM, CHF, Afib, and on anticoagulation. C/o pain to the right shoulder, proximal humerus, mid thoracic back, right hip, proximal right femur. No bruising or abrasions noted. C/o headache rated 4/10, improved with Tylenol. Rates back pain (worst pain of all) 6/10. GCS upon arrival: 15 No C collar or spineboard as per POV. Trauma code called at 1137. GCS at 1 hour: 15 GCS upon discharge: 15 Onset: Today, Sudden Treatments RAILROAD ENGINEER: Reports: Acetaminophen Other Treatments RAILROAD ENGINEER: Tylenol 650 mg at 0800 Middle Back Pain Score (Numeric/FACES): 6 - Related Data Allergies Allergy/AdvReac Type Severity Reaction Status Date / Time codeine Allergy Severe Rash Verified 04/20/18 23:21 indomethacin [From Indocin] Allergy Severe Other Verified 04/20/18 23:21 indomethacin sodium Allergy Severe Headache Verified 11/08/18 11:11 [From Indocin] Penicillins Allergy Severe Hives Verified 11/08/18 11:11 pentazocine [From Talwin] Allergy Severe Delusions Verified 11/08/18 11:11 Sulfa (Sulfonamide Allergy Severe Hives Verified 11/08/18 11:11 Antibiotics) sulfamethoxazole Allergy Severe Hives Verified 11/08/18 11:11 [From Bactrim] trimethoprim [From Bactrim] Allergy Severe Hives Verified 11/08/18 11:11 ampicillin Allergy Intermediate Hives Verified 11/08/18 11:11 atorvastatin calcium Allergy Mild Muscle Verified 11/08/18 11:11 [From Lipitor] Aches duloxetine HCl Allergy Mild Nausea Verified 11/08/18 11:11 [From Cymbalta] lactose Allergy Mild Diarrhea Verified 04/20/18 23:21 lisinopril Allergy Mild Cough Verified 11/08/18 11:13 metoprolol Allergy Mild Fatigue Verified 11/08/18 11:13 oxycodone [Oxycodone] Allergy Mild Other Verified 11/08/18 11:13 pravastatin Allergy Mild Muscle Verified 11/08/18 11:13 Aches simvastatin Allergy Mild Muscle Verified 11/08/18 11:13 Aches spironolactone Allergy Mild Headache Verified 11/08/18 11:13 tuberculin, purified protein Allergy Mild Rash Verified 11/08/18 11:13 deriva [tuberculin,purif.prot.deriv.] Iodinated Contrast Media Allergy Unknown Other Verified 11/08/18 11:13 [Iodinated Contrast Media - IV Dye] clindamycin Allergy Abdominal Verified 11/08/18 11:13 Pain clonazepam [From Klonopin] Allergy Other Verified 11/08/18 11:13 hydrochlorothiazide Allergy Lethargy Verified 11/08/18 11:13 tetanus toxoid, adsorbed Allergy Other Verified 11/08/18 11:13 zoster vaccine live Allergy Other Verified 11/08/18 11:13 flannel Allergy Burning Uncoded 11/08/18 11:13 Home Meds: Home Meds Isosorbide Mononitrate [Imdur] 60 mg PO DAILY 11/25/13 [History] LORazepam [Ativan] 0.5 mg PO BEDTIME 11/25/13 [History] Levothyroxine Sodium [Synthroid] 150 mcg PO ACBREAKFAST 11/25/13 [History] Nitroglycerin [Nitrostat] 0.4 mg SL Q5M PRN MDD 3 11/25/13 [History] Psyllium [Metamucil SF] 1 tbsp PO DAILY PRN 11/25/13 [History] amLODIPine Besylate [Amlodipine Besylate] 2.5 mg PO DAILY 11/25/13 [History] Acetaminophen 650 mg PO Q6HR PRN 03/28/15 [History] Albuterol [Proventil HFA] 2 inh INH ASDIRECTED PRN 03/28/15 [History] Potassium Chloride 40 meq PO QID 03/28/15 [History] Cholecalciferol (Vitamin D3) [Vitamin D3] 1,000 units PO TID 03/29/15 [History] Carvedilol [Coreg] 6.25 mg PO BIDMEALS 03/27/16 [History] Cyanocobalamin (Vitamin B12) [Vitamin B12] 100 mcg PO DAILY 03/27/16 [History] Hypromellose/PF [Retaine Hpmc 0.3% Eye Drops] 1 drop EYEBOTH QID PRN 03/27/16 [ History] Meclizine [Antivert] 25 mg PO QID PRN 03/27/16 [History] Pantoprazole Sodium [Protonix] 40 mg PO DAILY 03/27/16 [History] Docusate Sodium 100 mg PO BID 08/30/16 [History] Allopurinol [Zyloprim] 100 mg PO BID 05/02/17 [History] Bumetanide [Bumex] 2 mg PO TID 05/02/17 [History] Warfarin [Coumadin] 3 mg PO DAILY 05/02/17 [History] traMADol [Ultram] 50 mg PO DAILY PRN 05/02/17 [History] Albuterol [Proventil Neb Soln] 1 ampule INH Q6H PRN 04/10/18 [History] Amitriptyline [Elavil] 10 - 20 mg PO BEDTIME PRN 04/10/18 [History] Cinnamon Bark [Cinnamon] 1,000 mg PO DAILY 04/10/18 [History] Dextrose Tabs 16 g PO ASDIRECTED PRN 04/10/18 [History] Ondansetron [Zofran] 4 mg PO Q6H PRN 04/10/18 [History] Pantothenic Acid 500 mg PO BEDTIME 04/10/18 [History] aMILoride HCl [Amiloride HCl] 5 mg PO DAILY 04/10/18 [History] metOLazone [Metolazone] 2.5 mg PO .TWICEWEEKLY 04/10/18 [History] Insulin Detemir [Levemir] 50 unit SQ BID #1 pen 04/22/18 [Rx] Insulin Lispro [HumaLOG] 30 unit SUBCUT TIDMEALS vial 04/22/18 [Rx] Past Medical History HEENT History: Reports: Cataract, Impaired Vision, Other (See Below) Other HEENT History: HEARING LOSS TOTAL-RIGHT PARTIAL-LEFT, WEARS BILAT HEARING AIDES Cardiovascular History: Reports: Afib, Blood Clots/VTE/DVT, CAD, Heart Failure, Hypertension, CT, Stents, Other (See Below) Other Cardiovascular History: CAROTID ARTERY DISEASE. HEART FAILURE WITH PRESERVED EJECTION FRACTION. HYPERTENSIVE HEART DISEASE. TIA. 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 SUBDURAL HEMATOMA. lorazepam controls headaches from shunt Psychiatric History: Reports: Depression Endocrine/Metabolic History: Reports: Diabetes, Type II, Hypothyroidism, Obesity /BMI 30+, Osteoporosis, Vitamin D Deficiency Hematologic History: Reports: Blood Transfusion(s) Immunologic History: Reports: None Oncologic (Cancer) History: Reports: Malignant Melanoma Dermatologic History: Reports: None - Infectious Disease History Infectious Disease History: Reports: Chicken Pox, Measles, Mumps, Shingles, Other (See Below) Other Infectious Disease History: EXPOSED TO SOMETHING IN [place] IN LATE 70'S THAT AFFECTED LUNGS, CANT RMEMEBER - Past Surgical History Head Surgeries/Procedures: Reports: Shunt HEENT Surgical History: Reports: Adenoidectomy, Cataract Surgery, Tonsillectomy Other HEENT Surgeries/Procedures: PE TUBE PLACEMENT/REMOVAL RIGHT EAR. BILAT CATARACT EXTRACTION WITH LENS IMPLANTS Cardiovascular Surgical History: Reports: Carotid Endarterectomy, Coronary Artery Stent Other Cardiovascular Surgeries/Procedures: IVC FILTER PLACEMENT & REMOVAL Respiratory Surgical History: Reports: None GI Surgical History: Reports: Appendectomy, Colon, Colonoscopy, EGD, Polypectomy , Other (See Below) Other GI Surgeries/Procedures: large colon mostly resected - annotated redundant bowel Female Surgical History: Reports: Breast Biopsy, Cystectomy, Hysterectomy, Salpingo-Oophorectomy, Other (See Below) Other Female Surgeries/Procedures: breast cyst Endocrine Surgical History: Reports: None Neurological Surgical History: Reports: Other (See Below) Other Neurological Surgeries/Procedures: spinal tap and ORNAMENTAL BRICK INSTALLER shunt (2008) Musculoskeletal Surgical History: Reports: None Oncologic Surgical History: Reports: Biopsy of Breast Dermatological Surgical History: Reports: None Social & Family History - Family History Family Medical History: Noncontributory - Tobacco Use Smoking Status *Q: Former Smoker Years of Tobacco use: 10 Used Tobacco, but Quit: Yes Month/Year Tobacco Last Used: 1982 Second Hand Smoke Exposure: No - Caffeine Use Caffeine Use: Reports: Coffee, Soda, Tea Caffeine Use Comment: 1 CUP COFFEE. 2 CUPS TEA - Recreational Drug Use Recreational Drug Use: No - Living Situation & Occupation Living situation: Reports: with Family Occupation: Retired ED ROS GENERAL - Review of Systems Review Of Systems: ROS reveals no pertinent complaints other than HPI. ED EXAM, NEURO - Physical Exam Exam: See Below Exam Limited By: No Limitations General Appearance: Alert, WD/WN, Mild Distress Eye Exam: Bilateral Eye: EOMI, Normal Inspection, PERRL (3 brisk) Ears: Normal External Exam, Hearing Grossly Normal Nose: Normal Inspection Throat/Mouth: Normal Inspection, Normal Voice, No Airway Compromise Head Exam: Atraumatic, Normocephalic Neck: Normal Inspection, Supple, Non-Tender, Full Range of Motion Respiratory/Chest: No Respiratory Distress, No Accessory Muscle Use, Chest Non- Tender, Decreased Breath Sounds, Crackles (bases bilaterally) Cardiovascular: Normal Peripheral Pulses, No Gallop, No JVD, Irregularly Irregular, Other (+1 ankle edema) GI/Abdominal: Normal Bowel Sounds, Soft, Non-Tender, No Organomegaly, No Distention, No Abnormal Bruit, No Mass (Female) Exam: Deferred Rectal (Female) Exam: Deferred Neurological: Alert, Normal Mood/Affect, Normal Dorsiflexion, CN II-XII Intact, Normal Plantar Flexion, Normal Gait, Normal Reflexes, No Motor/Sensory Deficits , Oriented x 3 Back Exam: Normal Inspection, Decreased Range of Motion, Vertebral Tenderness ( mid thoracic) Extremities: Normal Inspection, Normal Range of Motion, Other (tender to right shoulder, proximal humerus, right hip, proximal right femur, ) Psychiatric: Normal Affect, Normal Mood Skin Exam: Warm, Dry, Intact, Normal Color, No Rash Course - Vital Signs Last Recorded V/S: Last Vital Signs Temp 98.4 F 11/08/18 11:01 Pulse 101 H 11/08/18 11:01 Resp 17 11/08/18 11:01 BP 134/62 11/08/18 11:01 Pulse Ox 95 11/08/18 11:01 - Orders/Labs/Meds Orders: Active Orders 24 hr Category Date Time Status EKG Documentation Completion [RC] STAT Care 11/08/18 11:35 Active Peripheral IV Care [RC] . DIRECTED Care 11/08/18 11:42 Active Sodium Chloride 0.9% [Saline Flush] Med 11/08/18 11:40 Active 10 ml FLUSH ASDIRECTED PRN traMADol [Ultram] Med 11/08/18 15:44 Once 50 mg PO ONETIME ONE Peripheral IV Insertion Adult [OM.PC] Stat Oth 11/08/18 11:35 Ordered Medication Orders Sodium Chloride (Saline Flush) 10 ml FLUSH ASDIRECTED PRN PRN Reason: Keep Vein Open Last Admin: 11/08/18 13:00 Dose: 10 ml Tramadol HCl (Ultram) 50 mg PO ONETIME ONE Stop: 11/08/18 15:45 Labs: Laboratory Tests 11/08/18 11/08/18 11/08/18 Range/Units 11:46 11:46 11:46 WBC 10.2 H (5.0-10.0) 10^3/uL RBC 3.52 L (4.2-5.4) 10^6/uL Hgb 9.4 L D (12.0-16.0) g/dL Hct 31.2 L (37.0-47.0) % MCV 88.6 D (80-100) fL MCH 26.7 L (27.0-34.0) pg MCHC 30.1 L (33.0-35.0) g/dL Plt Count 216 (150-450) 10^3/uL Neut % (Auto) 67.1 (42.2-75.2) % Lymph % (Auto) 13.2 L (20.5-50.1) % Bath % (Auto) 13.4 H (2-8) % Eos % (Auto) 5.7 H (1.0-3.0) % Baso % (Auto) 0.6 (0.0-1.0) % PT 43.2 H D (9.0-12.0) SEC INR 4.6 H (0.9-1.2) Sodium 137 (135-145) mmol/L Potassium 3.5 L (3.6-5.0) mmol/L Chloride 100 L (101-111) mmol/L Carbon Dioxide 26.0 (21.0-31.0) mmol/L Anion Gap 14.5 BUN 31 H (7-18) mg/dL Creatinine 1.6 H (0.6-1.3) mg/dL Est Cr Clr Drug Dosing 22.92 mL/min Estimated GFR (MDRD) 31 BUN/Creatinine Ratio 19.37 Glucose 297 H (74-105) mg/dL Calcium 8.8 (8.4-10.2) mg/dl Total Bilirubin 0.6 (0.2-1.0) mg/dL AST 46 H (10-42) IU/L ALT 30 (10-60) IU/L Alkaline Phosphatase 212 H (42-121) IU/L Troponin I 0.04 H* (0.00-0.02) ng/ml B-Natriuretic Peptide 233 H (0-100) pg/ml Total Protein 6.6 L (6.7-8.2) g/dl Albumin 3.2 (3.2-5.5) g/dl Globulin 3.4 Albumin/Globulin Ratio 0.94 Urine Color (YELLOW) Urine Appearance (CLEAR) Urine pH (5.0-9.0) Ur Specific Leeper (1.005-1.030) Urine Protein (NEGATIVE) Urine Glucose (UA) (NEGATIVE) Urine Ketones (NEGATIVE) Urine Occult Blood (NEGATIVE) Urine Nitrite (NEGATIVE) Urine Bilirubin (NEGATIVE) Urine Urobilinogen (0.2-1.0) mg/dL Ur Leukocyte Esterase (NEGATIVE) 11/08/18 Range/Units 13:20 WBC (5.0-10.0) 10^3/uL RBC (4.2-5.4) 10^6/uL Hgb (12.0-16.0) g/dL Hct (37.0-47.0) % MCV (80-100) fL MCH (27.0-34.0) pg MCHC (33.0-35.0) g/dL Plt Count (150-450) 10^3/uL Neut % (Auto) (42.2-75.2) % Lymph % (Auto) (20.5-50.1) % Bath % (Auto) (2-8) % Eos % (Auto) (1.0-3.0) % Baso % (Auto) (0.0-1.0) % PT (9.0-12.0) SEC INR (0.9-1.2) Sodium (135-145) mmol/L Potassium (3.6-5.0) mmol/L Chloride (101-111) mmol/L Carbon Dioxide (21.0-31.0) mmol/L Anion Gap BUN (7-18) mg/dL Creatinine (0.6-1.3) mg/dL Est Cr Clr Drug Dosing mL/min Estimated GFR (MDRD) BUN/Creatinine Ratio Glucose (74-105) mg/dL Calcium (8.4-10.2) mg/dl Total Bilirubin (0.2-1.0) mg/dL AST (10-42) IU/L ALT (10-60) IU/L Alkaline Phosphatase (42-121) IU/L Troponin I (0.00-0.02) ng/ml B-Natriuretic Peptide (0-100) pg/ml Total Protein (6.7-8.2) g/dl Albumin (3.2-5.5) g/dl Globulin Albumin/Globulin Ratio Urine Color Yellow (YELLOW) Urine Appearance Clear (CLEAR) Urine pH 6.0 (5.0-9.0) Ur Specific Leeper 1.015 (1.005-1.030) Urine Protein Negative (NEGATIVE) Urine Glucose (UA) Negative (NEGATIVE) Urine Ketones Negative (NEGATIVE) Urine Occult Blood Negative (NEGATIVE) Urine Nitrite Negative (NEGATIVE) Urine Bilirubin Negative (NEGATIVE) Urine Urobilinogen 0.2 (0.2-1.0) mg/dL Ur Leukocyte Esterase Negative (NEGATIVE) Meds: Medications Generic Name Dose Route Start Last Admin Trade Name Freq PRN Reason Stop Dose Admin Sodium Chloride 10 ml 11/08/18 11:40 11/08/18 13:00 Saline Flush FLUSH 10 ml ASDIRECTED PRN Administration Keep Vein Open Tramadol HCl 50 mg 11/08/18 15:44 Ultram PO 11/08/18 15:45 ONETIME ONE - Radiology Interpretation Free Text/Narrative:: Head CT wo contrast: FINDINGS: Tubes, catheters and devices: Unchanged right ventriculostomy shunt tube with tip in third ventricle/basilar cistern. Ventriculoperitoneal shunt catheter and reservoir system appear intact as imaged. Brain: Similar bilateral subdural fluid collections, maximum thickness on the left is 8mm in maximal thickness on the right and 10 mm on the right. Hounsfield units measure up to 30 bilaterally. Streak artifacts are present. Unchanged atrophy and chronic small vessel ischemia. No thrombus on a focal edema to suggest acute infarct. Unchanged mild mass effect on the diary and sulci from bilateral subdural fluid collections. Midline shift: No midline shift or herniation. No midline shift or herniation. Ventricles: Unchanged normal size ventricles. Bones/joints: Calvarium is unchanged. Deviated nasal septum. Deformity of the left mandibular condylar back and TMJ with severe DJD is unchanged. Moderate to severe DJD right mandibular condyle/TMJ. Unchanged craniotomy defect in the right parietal bone. Sinuses: Minimal sinus disease of the inferior left maxillary sinus. Left inferior maxillary sinus disease. Minimal sinus disease. Left maxillary sinus disease. Mastoid air cells: No known normal Orbits: Left cataract surgical findings are unchanged. Soft tissues: Small gas foci are present similar to prior exam. Dental: Streak artifact from dental amount. IMPRESSION: 1. Persistent foci of pneumocephalus in bilateral subdural fluid collections, possibly old subdural hematomas versus subdural effusions with minimal mass effect. No midline shift or herniation. 2. No focal edema. 3. 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 4. No new or detrimental interval changes. 5. Unchanged chronic deformities and DJD of the mandibular condyles, left more severe than right. Thank you for allowing us to participate in the care of your patient. Dictated and Authenticated by: Obinna Barrientos MD 11/08/2018 12:55 PM Central Time ([place] & [place]) C Spine xray: FINDINGS: Tubes, catheters and devices: Partially visualized right ventriculoperitoneal shunt catheter appears intact. Lungs: Included lungs are clear. Pleural space: Included lung show no pleural effusion or pneumothorax. Heart/Mediastinum: Cardiomegaly. Bones/joints: Rib series is limited by body habitus. No displaced fracture. Nondisplaced fracture of the right 11th rib anteriorly-age undetermined. Other findings: Moderate history IMPRESSION: 1. Nondisplaced right anterior 11th rib fracture-age undetermined. 2. Large body habitus limits assessment. Thank you for allowing us to participate in the care of your patient. Dictated and Authenticated by: Obinna Barrientos MD 11/08/2018 2:02 PM Central Time ([place] & [place]) Thoracic Spine xray: FINDINGS: Tubes, catheters and devices: Monitor leads. Vertebrae: Nonspecific thoracic spine straightening. Thoracic osteophytes are present. No thoracic spine fracture. No subluxation. Heart/Mediastinum: Moderate cardiomegaly. Vasculature: Tortuous calcified aorta. Soft tissues: Normal. Other findings: Limited exam due to body habitus. IMPRESSION: 1. No gross thoracic spine fracture or subluxation. 2. Nonspecific thoracic spine straightening. 3. Thoracolumbar spondylosis. Thank you for allowing us to participate in the care of your patient. Dictated and Authenticated by: Obinna Barrientos MD 11/08/2018 1:53 PM Central Time ([place] & [place]) Lumbar spine xray: FINDINGS: Vertebrae: L4-L5 grade 1 anterolisthesis. L3-S1 facet arthrosis. Nonspecific straightening of the thoracolumbar spine. Multilevel thoracolumbar osteophytes. No lumbar spine fracture. No subluxation. Intraperitoneal space: Cholecystectomy posterior Gastrointestinal tract: Nonspecific bowel pattern. Vasculature: Vascular calcifications are noted. Soft tissues: Normal. IMPRESSION: 1. Grade one anterolisthesis L4-L5. 2. Lumbar facet hypertrophy L3-S1 3. Nonspecific straightening of the thoracolumbar spine. 4. Mild thoracolumbar spondylosis. 5. No lumbar spine fracture. Thank you for allowing us to participate in the care of your patient. Dictated and Authenticated by: Obinna Barrientos MD 11/08/2018 1:50 PM Central Time ([place] & [place]) Right shoulder xray: FINDINGS: Bones/joints: No focal bony lesion. No erosion or periostitis. No acute fracture. No dislocation. Soft tissues: No soft tissue gas collection. No radiopaque foreign body. Monitor leads and IMPRESSION: No fracture or subluxation of the right shoulder. Thank you for allowing us to participate in the care of your patient. Dictated and Authenticated by: Obinna aBrrientos MD 11/08/2018 1:54 PM Central Time ([place] & [place]) Pelvis xray: FINDINGS: Bones/joints: No focal bony lesion. No erosion or periostitis. No acute fracture. No dislocation. Soft tissues: No soft tissue gas collection. No radiopaque foreign body. IMPRESSION: No focal bone lesions. Thank you for allowing us to participate in the care of your patient. Dictated and Authenticated by: Obinna Barrientos MD 11/08/2018 1:43 PM Central Time ([place] & [place]) Right femur xray: FINDINGS: Bones/joints: No focal bony lesion. No erosion or periostitis. No acute fracture. No dislocation. Soft tissues: No soft tissue gas collection. No radiopaque foreign body. IMPRESSION: No fracture or subluxation. Thank you for allowing us to participate in the care of your patient. Dictated and Authenticated by: Obinna Barrientos MD 11/08/2018 1:55 PM Central Time ([place] & [place]) CT of Cervical Spine wo contrast: FINDINGS: Tubes, catheters and devices: Partially visualized ventriculoperitoneal shunt catheter is intact. Vertebrae: Finding on C-spine x-ray represented artifact. No C-spine fracture. 7 cervical vertebral bodies with normal heights. Nonspecific cervical spine straightening. Discs/Spinal canal/Neural foramina: Osteophytes of middle and lower cervical spine. Facet and uncovertebral joint hypertrophy Prevertebral Space: No prevertebral soft tissue swelling. Soft tissues: No prevertebral soft tissue swelling. Mastoid air cells: Poor aeration in inferior mastoid air cells. Lungs: Lung apices are clear. Vasculature: Carotid arterial calcifications are noted. IMPRESSION: 1. No cervical spine fracture. No subluxation. 2. Finding are corresponding C-spine represented artifact simulating a fracture. 3. Nonspecific cervical spine straightening. 4. Degenerative disease and facet/uncovertebral joint arthrosis. Thank you for allowing us to participate in the care of your patient. Dictated and Authenticated by: Obinna Barrientos MD 11/08/2018 3:15 PM Central Time ([place] & [place]) CT of Chest wo contrast: FINDINGS: Tubes, catheters and devices: Unchanged intact visualized portion of the ventriculoperitoneal shunt catheter. Unchanged partially imaged peritoneal portion of the ventriculoperitoneal catheter extends below the field of view. Lungs: Interval resolution of basilar consolidations, atelectasis, greater on the left on prior exam. Pleural space: Interval resolution no prior pleural effusions. No pneumothorax. Heart: Unchanged mild cardiomegaly. Coronary artery calcifications. Mitral annular calcifications. Minimal pericardial fluid/thickening. Mediastinum: Unchanged prominent mediastinal fat. Pulmonary arteries: Unchanged normal-sized pulmonary arteries. Aorta: Unchanged normally sized aorta. Atherosclerosis. Cannot assess for PE or aortic dissection without IV contrast. Lymph nodes: Unchanged indeterminate lymph nodes. Bones/joints: Nondisplaced right 10th rib fracture (previously thought to be the 11th rib on x-ray) appears old. Soft tissues: Unchanged dense fibroglandular breast tissue. Contusions of the ventral abdominal wall. Unchanged remote ventral hernia repair with reherniation and diastases. Liver: Interval small amount of perihepatic fluid. Gallbladder and bile ducts: Unchanged cholecystectomy. Kidneys and ureters: Unchanged 3.8 x 3.5 cm exophytic left renal cyst. Additional 2 x 1.8 cm exophytic right renal cyst. 1.5 x 1.6 cm no anterior or right renal cyst. IMPRESSION: 1. Unchanged cardiomegaly with coronary artery calcifications and minimal pericardial thickening. 2. Intervally result prior bilateral pleural effusions and consolidations. No acute pulmonary process. 3. Unchanged old right 10th rib fracture (thought to be the 11th rib on CXR). 4. See report body for additional findings. Thank you for allowing us to participate in the care of your patient. Dictated and Authenticated by: Obinna Barrientos MD 11/08/2018 3:08 PM Central Time ([place] & [place]) See rad report Departure - Departure Time of Disposition: 15:18 Disposition: Home, Self-Care 01 Condition: Fair Clinical Impression: Rib fracture Qualifiers: Encounter type: initial encounter Rib fracture type: single rib Fracture type: closed Laterality: right Qualified Code(s): S22.31XA - Fracture of one rib, right side, initial encounter for closed fracture Episode of syncope Qualifiers: Syncope type: unspecified Qualified Code(s): R55 - Syncope and collapse - Discharge Information *PRESCRIPTION DRUG MONITORING PROGRAM REVIEWED*: No *COPY OF PRESCRIPTION DRUG MONITORING REPORT IN PATIENT JOSE: No Instructions: Rib Belt, Rib Fracture, [id number]-[id number] Forms: ED Department Discharge Additional Instructions: May use Tylenol as directed for pain May use already prescribed Tramadol for pain as directed Follow up with your primary care facility next week Deep breathe and cough May use pillow to splint right side with movement Do not take Coumadin today Call Dr. Yates's office tomorrow to have INR redrawn and restart date for Coumadin - My Orders Last 24 Hours: My Active Orders 11/08/18 11:35 EKG Documentation Completion [RC] STAT Peripheral IV Insertion Adult [OM.PC] Stat 11/08/18 11:40 Sodium Chloride 0.9% [Saline Flush] 10 ml FLUSH ASDIRECTED PRN 11/08/18 11:42 Peripheral IV Care [RC] . DIRECTED 11/08/18 15:44 traMADol [Ultram] 50 mg PO ONETIME ONE - Assessment/Plan Last 24 Hours: My Active Orders 11/08/18 11:35 EKG Documentation Completion [RC] STAT Peripheral IV Insertion Adult [OM.PC] Stat 11/08/18 11:40 Sodium Chloride 0.9% [Saline Flush] 10 ml FLUSH ASDIRECTED PRN 11/08/18 11:42 Peripheral IV Care [RC] . DIRECTED 11/08/18 15:44 traMADol [Ultram] 50 mg PO ONETIME ONE
[2018-11-08] MEDS ORDERED: Sodium Chloride 0.9% 10 ML Syringe FLUSH PRN (11:40)
[2018-11-08 12:13] LABS: ANION GAP 14.5
[2018-11-08] MEDS ORDERED: traMADol 50 MG Tab PO ONE (15:44)
== END 2018-11-08 16:13 | disposition home or self-care (01) ==
LOC: DL.ED 10:47
DX: S22.31XA Fracture of one rib, right side, initial encounter for closed fracture (principal); R55 Syncope and collapse; I13.0 Hypertensive heart and chronic kidney disease with heart failure and stage 1 through stage 4 chronic kidney disease, or unspecified chronic kidney disease; E11.22 Type 2 diabetes mellitus with diabetic chronic kidney disease; N18.3 Chronic kidney disease, stage 3 (moderate); I50.33 Acute on chronic diastolic (congestive) heart failure; Z79.4 Long term (current) use of insulin; I48.91 Unspecified atrial fibrillation; I25.10 Atherosclerotic heart disease of native coronary artery without angina pectoris; I25.2 Old myocardial infarction; Z86.718 Personal history of other venous thrombosis and embolism; J45.909 Unspecified asthma, uncomplicated; M19.90 Unspecified osteoarthritis, unspecified site; F32.9 Major depressive disorder, single episode, unspecified; E03.9 Hypothyroidism, unspecified; E66.9 Obesity, unspecified; Z68.41 Body mass index [BMI] 40.0-44.9, adult; Z87.891 Personal history of nicotine dependence; Z88.5 Allergy status to narcotic agent; Z88.0 Allergy status to penicillin; Z88.1 Allergy status to other antibiotic agents; Z88.8 Allergy status to other drugs, medicaments and biological substances; Z88.7 Allergy status to serum and vaccine; Z91.041 Radiographic dye allergy status; Z91.011 Allergy to milk products; Z79.899 Other long term (current) drug therapy; Z79.01 Long term (current) use of anticoagulants; W19.XXXA Unspecified fall, initial encounter
CPT/HCPCS: 36415; 70450; 71101; 71250; 72040; 72070; 72100; 72125; 72170; 73030; 73552; 80053; 81003; 83880; 84484; 85025; 85610; 93005; 99285; A9270

== ENCOUNTER 2018-11-30 03:18 | Emergency (ER) | payer BC, OTHER ==
[~2018-11-30 03:18] MED LIST changes: +50% Dextrose in Water 50 ML Syringe IVPUSH ONE; +50% Dextrose in Water 50 ML Syringe ONE; -Dextrose 5%-0.45% NaCl 1,000 ML IV SCH; -Midazolam 1 MG/ML 2 ML SDV IV ONE; -Midazolam 1 MG/ML 2 ML SDV ONE; -Sodium Chloride 0.9% 10 ML Syringe FLUSH PRN; -fentaNYL 100 MCG/2 ML SDV IV ONE; -fentaNYL 100 MCG/2 ML SDV ONE
[2018-11-30 03:19] VITALS: BP 131/61; PULSE 84
--- NOTE | 2018-11-30 03:19 | EDM.PDOC ---
ED HPI GENERAL MEDICAL PROBLEM - General Stated Complaint: AMBULANCE Time Seen by Provider: 11/30/18 03:10 Source of Information: Reports: Patient History Limitations: Reports: Altered Mental Status - History of Present Illness INITIAL COMMENTS - FREE TEXT/NARRATIVE: This 78 yo female patient was brought to the ED by [facility] and [facility] due to altered mentation. EMS reports the patient's blood sugar was initially 33 upon arrival at her residence. EMS was unable to establish an IV, but did given the patient Glucagon. Upon arrival in the ED, the patient was responsive, but slow in responding. The patient reports she does not feel good at this time. When she was asked what was hurting, the patient responded that she "just does not feel good all over", but did not have any specific complaints. Onset: Today Duration: Minutes:, Constant Location: Reports: Generalized Quality: Reports: Other Severity: Moderate Improves with: Reports: None Worsens with: Reports: None Context: Reports: Other Associated Symptoms: Reports: No Other Symptoms Treatments CONSULTING IT ARCHITECT: Reports: Glucagon (By EMS) - Related Data Allergies Allergy/AdvReac Type Severity Reaction Status Date / Time codeine Allergy Severe Rash Verified 11/30/18 03:14 indomethacin [From Indocin] Allergy Severe Other Verified 11/30/18 03:14 indomethacin sodium Allergy Severe Headache Verified 11/30/18 03:14 [From Indocin] Penicillins Allergy Severe Hives Verified 11/30/18 03:14 pentazocine [From Talwin] Allergy Severe Delusions Verified 11/30/18 03:14 Sulfa (Sulfonamide Allergy Severe Hives Verified 11/30/18 03:14 Antibiotics) sulfamethoxazole Allergy Severe Hives Verified 11/30/18 03:14 [From Bactrim] trimethoprim [From Bactrim] Allergy Severe Hives Verified 11/30/18 03:14 ampicillin Allergy Intermediate Hives Verified 11/30/18 03:14 atorvastatin calcium Allergy Mild Muscle Verified 11/30/18 03:14 [From Lipitor] Aches duloxetine HCl Allergy Mild Nausea Verified 11/30/18 03:14 [From Cymbalta] lactose Allergy Mild Diarrhea Verified 11/30/18 03:14 lisinopril Allergy Mild Cough Verified 11/30/18 03:14 metoprolol Allergy Mild Fatigue Verified 11/30/18 03:14 oxycodone [Oxycodone] Allergy Mild Other Verified 11/30/18 03:14 pravastatin Allergy Mild Muscle Verified 11/30/18 03:14 Aches simvastatin Allergy Mild Muscle Verified 11/30/18 03:14 Aches spironolactone Allergy Mild Headache Verified 11/30/18 03:14 tuberculin, purified protein Allergy Mild Rash Verified 11/30/18 03:14 deriva [tuberculin,purif.prot.deriv.] Iodinated Contrast Media Allergy Unknown Other Verified 11/30/18 03:14 [Iodinated Contrast Media - IV Dye] clindamycin Allergy Abdominal Verified 11/30/18 03:14 Pain clonazepam [From Klonopin] Allergy Other Verified 11/30/18 03:14 hydrochlorothiazide Allergy Lethargy Verified 11/30/18 03:14 tetanus toxoid, adsorbed Allergy Other Verified 11/30/18 03:14 zoster vaccine live Allergy Other Verified 11/30/18 03:14 flannel Allergy Burning Uncoded 11/30/18 03:14 Home Meds: Home Meds Isosorbide Mononitrate [Imdur] 60 mg PO DAILY 11/25/13 [History] LORazepam [Ativan] 0.5 mg PO BEDTIME 11/25/13 [History] Levothyroxine Sodium [Synthroid] 150 mcg PO ACBREAKFAST 11/25/13 [History] Nitroglycerin [Nitrostat] 0.4 mg SL Q5M PRN MDD 3 11/25/13 [History] Psyllium [Metamucil SF] 1 tbsp PO DAILY PRN 11/25/13 [History] amLODIPine Besylate [Amlodipine Besylate] 2.5 mg PO DAILY 11/25/13 [History] Acetaminophen 650 mg PO Q6HR PRN 03/28/15 [History] Albuterol [Proventil HFA] 2 inh INH ASDIRECTED PRN 03/28/15 [History] Potassium Chloride 40 meq PO QID 03/28/15 [History] Cholecalciferol (Vitamin D3) [Vitamin D3] 1,000 units PO TID 03/29/15 [History] Carvedilol [Coreg] 6.25 mg PO BIDMEALS 03/27/16 [History] Cyanocobalamin (Vitamin B12) [Vitamin B12] 100 mcg PO DAILY 03/27/16 [History] Hypromellose/PF [Retaine Hpmc 0.3% Eye Drops] 1 drop EYEBOTH QID PRN 03/27/16 [ History] Meclizine [Antivert] 25 mg PO QID PRN 03/27/16 [History] Pantoprazole Sodium [Protonix] 40 mg PO DAILY 03/27/16 [History] Docusate Sodium 100 mg PO BID 08/30/16 [History] Allopurinol [Zyloprim] 100 mg PO BID 05/02/17 [History] Bumetanide [Bumex] 2 mg PO TID 05/02/17 [History] Warfarin [Coumadin] 3 mg PO DAILY 05/02/17 [History] traMADol [Ultram] 50 mg PO DAILY PRN 05/02/17 [History] Albuterol [Proventil Neb Soln] 1 ampule INH Q6H PRN 04/10/18 [History] Amitriptyline [Elavil] 10 - 20 mg PO BEDTIME PRN 04/10/18 [History] Cinnamon Bark [Cinnamon] 1,000 mg PO DAILY 04/10/18 [History] Dextrose Tabs 16 g PO ASDIRECTED PRN 04/10/18 [History] Ondansetron [Zofran] 4 mg PO Q6H PRN 04/10/18 [History] Pantothenic Acid 500 mg PO BEDTIME 04/10/18 [History] aMILoride HCl [Amiloride HCl] 5 mg PO DAILY 04/10/18 [History] metOLazone [Metolazone] 2.5 mg PO .TWICEWEEKLY 04/10/18 [History] Insulin Detemir [Levemir] 50 unit SQ BID #1 pen 04/22/18 [Rx] Insulin Lispro [HumaLOG] 30 unit SUBCUT TIDMEALS vial 04/22/18 [Rx] Past Medical History HEENT History: Reports: Cataract, Impaired Vision, Other (See Below) Other HEENT History: HEARING LOSS TOTAL-RIGHT PARTIAL-LEFT, WEARS BILAT HEARING AIDES Cardiovascular History: Reports: Afib, Blood Clots/VTE/DVT, CAD, Heart Failure, Hypertension, [place], Stents, Other (See Below) Other Cardiovascular History: CAROTID ARTERY DISEASE. HEART FAILURE WITH PRESERVED EJECTION FRACTION. HYPERTENSIVE HEART DISEASE. TIA. ACUTE ON CHRONIC DIASTOLIC CONGESTIVE HEART FAILURE Respiratory History: Reports: Asthma, Bronchitis, Recurrent, Sleep Apnea Gastrointestinal History: Reports: Cholelithiasis, Chronic Constipation, GERD, Hemorrhoids, Irritable Bowel Syndrome Other Gastrointestinal History: DENIES CONSTIPATION Genitourinary History: Reports: Chronic Renal Insuffiency, Renal Calculus, Other (See Below) Other Genitourinary History: CKD STAGE III JUNIOR ANALYST History: Reports: Other (See Below) Other JUNIOR ANALYST History: UTERUS WAS ADHESED TO HER SPINE Musculoskeletal History: Reports: Back Pain, Chronic, Fracture, Osteoarthritis Other Musculoskeletal History: FRACTURED ARM WHEN SHE WAS YOUNG Neurological History: Reports: Headaches, Chronic, TIA, Other (See Below) Other Neuro History: NORMAL PRESSURE HYDROCEPHALUS. SUBDURAL HEMATOMA. lorazepam controls headaches from shunt Psychiatric History: Reports: Depression Endocrine/Metabolic History: Reports: Diabetes, Type II, Hypothyroidism, Obesity /BMI 30+, Osteoporosis, Vitamin D Deficiency Hematologic History: Reports: Blood Transfusion(s) Immunologic History: Reports: None Oncologic (Cancer) History: Reports: Malignant Melanoma Dermatologic History: Reports: None - Infectious Disease History Infectious Disease History: Reports: Chicken Pox, Measles, Mumps, Shingles, Other (See Below) Other Infectious Disease History: EXPOSED TO SOMETHING IN [place] IN LATE 70S THAT AFFECTED LUNGS, CANT RMEMEBER - Past Surgical History Head Surgeries/Procedures: Reports: Shunt HEENT Surgical History: Reports: Adenoidectomy, Cataract Surgery, Tonsillectomy Other HEENT Surgeries/Procedures: PE TUBE PLACEMENT/REMOVAL RIGHT EAR. BILAT CATARACT EXTRACTION WITH LENS IMPLANTS Cardiovascular Surgical History: Reports: Carotid Endarterectomy, Coronary Artery Stent Other Cardiovascular Surgeries/Procedures: IVC FILTER PLACEMENT & REMOVAL Respiratory Surgical History: Reports: None GI Surgical History: Reports: Appendectomy, Colon, Colonoscopy, EGD, Polypectomy , Other (See Below) Other GI Surgeries/Procedures: large colon mostly resected - annotated redundant bowel Female Surgical History: Reports: Breast Biopsy, Cystectomy, Hysterectomy, Salpingo-Oophorectomy, Other (See Below) Other Female Surgeries/Procedures: breast cyst Endocrine Surgical History: Reports: None Neurological Surgical History: Reports: Other (See Below) Other Neurological Surgeries/Procedures: spinal tap and [employer] shunt (2007) Musculoskeletal Surgical History: Reports: None Oncologic Surgical History: Reports: Biopsy of Breast Dermatological Surgical History: Reports: None Social & Family History - Family History Family Medical History: Noncontributory - Caffeine Use Caffeine Use: Reports: Coffee, Soda, Tea Caffeine Use Comment: 1 CUP COFFEE. 2 CUPS TEA - Living Situation & Occupation Living situation: Reports: with Family Occupation: Retired ED ROS GENERAL - Review of Systems Review Of Systems: ROS reveals no pertinent complaints other than HPI. ED EXAM, GENERAL - Physical Exam Exam: See Below Exam Limited By: No Limitations General Appearance: Alert, WD/WN, Obtunded Eye Exam: Bilateral Eye: EOMI, Normal Inspection, PERRL Ears: Normal External Exam, Normal Canal, Hearing Grossly Normal, Normal TMs Nose: Normal Inspection, Normal Mucosa, No Blood Throat/Mouth: Normal Inspection, Normal Lips, Normal Teeth, Normal Gums, Normal Oropharynx, Normal Voice, No Airway Compromise Head: Atraumatic, Normocephalic Neck: Normal Inspection, Supple, Non-Tender, Full Range of Motion Respiratory/Chest: No Respiratory Distress, Lungs Clear, Normal Breath Sounds, No Accessory Muscle Use, Chest Non-Tender Cardiovascular: Normal Peripheral Pulses, Regular Rate, Rhythm, No Edema, No Gallop, No JVD, No Murmur, No Rub GI/Abdominal: Normal Bowel Sounds, Soft, Non-Tender, No Organomegaly, No Distention, No Abnormal Bruit, No Mass (Female) Exam: Deferred Rectal (Female) Exam: Deferred Back Exam: Normal Inspection, Full Range of Motion, NT Extremities: Normal Inspection, Normal Range of Motion, Non-Tender, Normal Capillary Refill, No Pedal Edema Neurological: Alert, Confused, Slow to Respond Skin Exam: Warm, Dry, Intact, Normal Color, No Rash Lymphatic: No Adenopathy Course - Vital Signs Last Recorded V/S: Last Vital Signs Temp 35.4 C 11/30/18 03:14 Pulse 84 11/30/18 03:14 Resp 23 H 11/30/18 03:14 BP 131/61 11/30/18 03:14 Pulse Ox 99 11/30/18 03:14 - Orders/Labs/Meds Labs: Laboratory Tests 11/30/18 11/30/18 11/30/18 Range/Units 03:09 03:10 03:11 WBC 13.1 H (5.0-10.0) 10^3/uL RBC 4.52 (4.2-5.4) 10^6/uL Hgb 11.8 L D (12.0-16.0) g/dL Hct 39.2 (37.0-47.0) % MCV 86.7 (80-100) fL MCH 26.1 L (27.0-34.0) pg MCHC 30.1 L (33.0-35.0) g/dL Plt Count 322 D (150-450) 10^3/uL Neut % (Auto) 74.0 (42.2-75.2) % Lymph % (Auto) 9.0 L (20.5-50.1) % [place] % (Auto) 14.6 H (2-8) % Eos % (Auto) 2.0 (1.0-3.0) % Baso % (Auto) 0.4 (0.0-1.0) % Sodium 142 (135-145) mmol/L Potassium 3.5 L (3.6-5.0) mmol/L Chloride 99 L (101-111) mmol/L Carbon Dioxide 33.0 H (21.0-31.0) mmol/L Anion Gap 13.5 BUN 32 H (7-18) mg/dL Creatinine 1.6 H (0.6-1.3) mg/dL Est Cr Clr Drug Dosing TNP Estimated GFR (MDRD) 31 BUN/Creatinine Ratio 20.00 Glucose 63 L (74-105) mg/dL POC Glucose 58 L (83-110) mg/dl Calcium 9.4 (8.4-10.2) mg/dl Total Bilirubin 1.1 H (0.2-1.0) mg/dL AST 49 H (10-42) IU/L ALT 29 (10-60) IU/L Alkaline Phosphatase 212 H (42-121) IU/L Total Protein 7.7 (6.7-8.2) g/dl Albumin 3.7 (3.2-5.5) g/dl Globulin 4.0 Albumin/Globulin Ratio 0.93 Urine Color (YELLOW) Urine Appearance (CLEAR) Urine pH (5.0-9.0) Ur Specific [place] (1.005-1.030) Urine Protein (NEGATIVE) Urine Glucose (UA) (NEGATIVE) Urine Ketones (NEGATIVE) Urine Occult Blood (NEGATIVE) Urine Nitrite (NEGATIVE) Urine Bilirubin (NEGATIVE) Urine Urobilinogen (0.2-1.0) mg/dL Ur Leukocyte Esterase (NEGATIVE) 11/30/18 11/30/18 11/30/18 Range/Units 03:24 03:26 04:05 WBC (5.0-10.0) 10^3/uL RBC (4.2-5.4) 10^6/uL Hgb (12.0-16.0) g/dL Hct (37.0-47.0) % MCV (80-100) fL MCH (27.0-34.0) pg MCHC (33.0-35.0) g/dL Plt Count (150-450) 10^3/uL Neut % (Auto) (42.2-75.2) % Lymph % (Auto) (20.5-50.1) % [place] % (Auto) (2-8) % Eos % (Auto) (1.0-3.0) % Baso % (Auto) (0.0-1.0) % Sodium (135-145) mmol/L Potassium (3.6-5.0) mmol/L Chloride (101-111) mmol/L Carbon Dioxide (21.0-31.0) mmol/L Anion Gap BUN (7-18) mg/dL Creatinine (0.6-1.3) mg/dL Est Cr Clr Drug Dosing Estimated GFR (MDRD) BUN/Creatinine Ratio Glucose (74-105) mg/dL POC Glucose 207 H 203 H (83-110) mg/dl Calcium (8.4-10.2) mg/dl Total Bilirubin (0.2-1.0) mg/dL AST (10-42) IU/L ALT (10-60) IU/L Alkaline Phosphatase (42-121) IU/L Total Protein (6.7-8.2) g/dl Albumin (3.2-5.5) g/dl Globulin Albumin/Globulin Ratio Urine Color Yellow (YELLOW) Urine Appearance Clear (CLEAR) Urine pH 7.0 (5.0-9.0) Ur Specific [place] 1.015 (1.005-1.030) Urine Protein Negative (NEGATIVE) Urine Glucose (UA) Negative (NEGATIVE) Urine Ketones Negative (NEGATIVE) Urine Occult Blood Negative (NEGATIVE) Urine Nitrite Negative (NEGATIVE) Urine Bilirubin Negative (NEGATIVE) Urine Urobilinogen 0.2 (0.2-1.0) mg/dL Ur Leukocyte Esterase Negative (NEGATIVE) 11/30/18 Range/Units 06:17 WBC (5.0-10.0) 10^3/uL RBC (4.2-5.4) 10^6/uL Hgb (12.0-16.0) g/dL Hct (37.0-47.0) % MCV (80-100) fL MCH (27.0-34.0) pg MCHC (33.0-35.0) g/dL Plt Count (150-450) 10^3/uL Neut % (Auto) (42.2-75.2) % Lymph % (Auto) (20.5-50.1) % [place] % (Auto) (2-8) % Eos % (Auto) (1.0-3.0) % Baso % (Auto) (0.0-1.0) % Sodium (135-145) mmol/L Potassium (3.6-5.0) mmol/L Chloride (101-111) mmol/L Carbon Dioxide (21.0-31.0) mmol/L Anion Gap BUN (7-18) mg/dL Creatinine (0.6-1.3) mg/dL Est Cr Clr Drug Dosing Estimated GFR (MDRD) BUN/Creatinine Ratio Glucose (74-105) mg/dL POC Glucose 154 H (83-110) mg/dl Calcium (8.4-10.2) mg/dl Total Bilirubin (0.2-1.0) mg/dL AST (10-42) IU/L ALT (10-60) IU/L Alkaline Phosphatase (42-121) IU/L Total Protein (6.7-8.2) g/dl Albumin (3.2-5.5) g/dl Globulin Albumin/Globulin Ratio Urine Color (YELLOW) Urine Appearance (CLEAR) Urine pH (5.0-9.0) Ur Specific [place] (1.005-1.030) Urine Protein (NEGATIVE) Urine Glucose (UA) (NEGATIVE) Urine Ketones (NEGATIVE) Urine Occult Blood (NEGATIVE) Urine Nitrite (NEGATIVE) Urine Bilirubin (NEGATIVE) Urine Urobilinogen (0.2-1.0) mg/dL Ur Leukocyte Esterase (NEGATIVE) Meds: Medications Discontinued Medications Generic Name Dose Route Start Last Admin Trade Name Freq PRN Reason Stop Dose Admin Dextrose/Water 50 ml 11/30/18 03:11 10/07/19 03:19 Dextrose 50% In Water IVPUSH 11/30/18 03:12 50 ml ONETIME ONE Administration Dextrose/Water Confirm 11/30/18 03:12 11/30/18 03:19 Dextrose 50% In Water Administered 11/30/18 03:13 Not Given Dose 50 ml .ROUTE .STK-MED ONE Departure - Departure Time of Disposition: 06:51 Disposition: Home, Self-Care 01 Condition: Fair Clinical Impression: Hypoglycemia - Discharge Information *PRESCRIPTION DRUG MONITORING PROGRAM REVIEWED*: Not Applicable *COPY OF PRESCRIPTION DRUG MONITORING REPORT IN PATIENT JOSE: Not Applicable Instructions: Hypoglycemia, [id number] Forms: ED Department Discharge Care Plan Goals: The patient and family were advised of the examination, lab and treatments during the visit. The patient was encouraged to continue to monitor her blood sugar levels. The patient should follow-up with her primary care facility. If the patient has any additional symptoms or concerns, the patient should either return to the emergency department or visit her primary care facility.
[2018-11-30 03:37] LABS: ANION GAP 13.5; CHLORIDE,CL 99 mmol/L (101-111); SODIUM,NA 142 mmol/L (135-145)
== END 2018-11-30 07:00 | disposition home or self-care (01) ==
LOC: DL.ED 03:18
DX: E11.649 Type 2 diabetes mellitus with hypoglycemia without coma (principal); I25.10 Atherosclerotic heart disease of native coronary artery without angina pectoris; I25.2 Old myocardial infarction; I13.0 Hypertensive heart and chronic kidney disease with heart failure and stage 1 through stage 4 chronic kidney disease, or unspecified chronic kidney disease; I50.33 Acute on chronic diastolic (congestive) heart failure; N18.3 Chronic kidney disease, stage 3 (moderate); E11.22 Type 2 diabetes mellitus with diabetic chronic kidney disease; E03.9 Hypothyroidism, unspecified; E66.9 Obesity, unspecified; Z88.5 Allergy status to narcotic agent; Z88.6 Allergy status to analgesic agent; Z88.0 Allergy status to penicillin; Z88.2 Allergy status to sulfonamides; Z88.8 Allergy status to other drugs, medicaments and biological substances; Z88.7 Allergy status to serum and vaccine; Z91.041 Radiographic dye allergy status; Z79.899 Other long term (current) drug therapy; Z79.01 Long term (current) use of anticoagulants; Z79.4 Long term (current) use of insulin; Z79.890 Hormone replacement therapy
CPT/HCPCS: 36415; 80053; 81003; 82962; 85025; 96374; 99285-25; J7060

== ENCOUNTER 2018-12-12 16:11 | Emergency (ER) | payer BC, OTHER ==
[2018-12-12 16:57] LABS: ANION GAP 15.5; CHLORIDE,CL 95 mmol/L (101-111); SODIUM,NA 136 mmol/L (135-145)
[2018-12-12] MEDS ORDERED: Insulin NPH HUM/REG Insulin HM 100 UNIT/ML 3 ML Vial SQ ONE (17:06)
[2018-12-12] MEDS ORDERED: Insulin Regular, Human 100 Units/ML 3 ML Vial SUBCUT ONE (17:22)
--- NOTE | 2018-12-12 18:37 | EDM.PDOC ---
Scribed by Belen Rios 12/12/18 1816 for Lauryn Mullen NP ED HPI GENERAL MEDICAL PROBLEM - General Chief Complaint: Trauma Stated Complaint: AMBULANCE Time Seen by Provider: 12/12/18 16:11 Source of Information: Reports: Patient, EMS, EMS Notes Reviewed, RN, RN Notes Reviewed History Limitations: Reports: No Limitations - History of Present Illness INITIAL COMMENTS - FREE TEXT/NARRATIVE: 78 year old DM female on Coumadin tripped on her feet and fell flat, hitting her forehead on a kitchen chop block; headache, neck pain, chest wall discomfort with palpation. Mild mid abdominal discomfort. No LOC. No nausea, vision chg, or dizziness. No recent illness. She is on Coumadin and insulin. Denies CP or dizziness prior to fall. Denies extremity spine pain; except + neck pain. Primary Survey Airway: open and patent; sat 88-90% when lying flat. C-collar on. Breathing: Regular and equal lung expansion; lungs clear Circulation: No bleeding; or obvious bruising except mild mid abdomen; but may be from her insulin injections. cap refill <3sec. BP stable Deformity: none. Pelvis non-tender Expose: temp 97.6 . SKIN WARM PINK. GCS: 15 SECONDARY SURVEY: HEENT: Head; tender on forehead; no bruise at this time; no open wounds Eyes: EFRAÍN, EOMs intact Ears: No trauma Mouth: normal appearing; no trauma Throat: Tender cervical spine Neck: C-collar on; inline secured and removed collar to re-adjust. No deformity or edema to neck. Chest: lungs clear with equal expansion Abdomen; Mild bruising with injection sites from insulin; mild tender. Hard to determine if tender from fall or from injection sites. No organomegaly Pelvis: non-tender. Back: rolled over by log roll; inspection of back without tenderness of the throacic or lumbar spine; no bruising or step off. Extremities: CMS intact; non tender; except mild discomfort of the left knee; no bruising or swelling. Arrival Time: 1609 GSC on arrival 15 C- Collar present on arrival: Yes GCS @ 1 hours: 15 Off spine board: 1701 Primary survey: 1645 Secondary Survey: 1745 Derrick C-collar removed 1745 GCS on discharge: 15 - Related Data Allergies Allergy/AdvReac Type Severity Reaction Status Date / Time codeine Allergy Severe Rash Verified 11/30/18 03:14 indomethacin [From Indocin] Allergy Severe Other Verified 11/30/18 03:14 indomethacin sodium Allergy Severe Headache Verified 11/30/18 03:14 [From Indocin] Penicillins Allergy Severe Hives Verified 11/30/18 03:14 pentazocine [From Talwin] Allergy Severe Delusions Verified 11/30/18 03:14 Sulfa (Sulfonamide Allergy Severe Hives Verified 11/30/18 03:14 Antibiotics) sulfamethoxazole Allergy Severe Hives Verified 11/30/18 03:14 [From Bactrim] trimethoprim [From Bactrim] Allergy Severe Hives Verified 11/30/18 03:14 ampicillin Allergy Intermediate Hives Verified 11/30/18 03:14 atorvastatin calcium Allergy Mild Muscle Verified 11/30/18 03:14 [From Lipitor] Aches duloxetine HCl Allergy Mild Nausea Verified 11/30/18 03:14 [From Cymbalta] lactose Allergy Mild Diarrhea Verified 11/30/18 03:14 lisinopril Allergy Mild Cough Verified 11/30/18 03:14 metoprolol Allergy Mild Fatigue Verified 11/30/18 03:14 oxycodone [Oxycodone] Allergy Mild Other Verified 11/30/18 03:14 pravastatin Allergy Mild Muscle Verified 11/30/18 03:14 Aches simvastatin Allergy Mild Muscle Verified 11/30/18 03:14 Aches spironolactone Allergy Mild Headache Verified 11/30/18 03:14 tuberculin, purified protein Allergy Mild Rash Verified 11/30/18 03:14 deriva [tuberculin,purif.prot.deriv.] Iodinated Contrast Media Allergy Unknown Other Verified 11/30/18 03:14 [Iodinated Contrast Media - IV Dye] clindamycin Allergy Abdominal Verified 11/30/18 03:14 Pain clonazepam [From Klonopin] Allergy Other Verified 11/30/18 03:14 hydrochlorothiazide Allergy Lethargy Verified 11/30/18 03:14 tetanus toxoid, adsorbed Allergy Other Verified 11/30/18 03:14 zoster vaccine live Allergy Other Verified 11/30/18 03:14 flannel Allergy Burning Uncoded 11/30/18 03:14 Home Meds: Home Meds Isosorbide Mononitrate [Imdur] 60 mg PO DAILY 11/25/13 [History] LORazepam [Ativan] 0.5 mg PO BEDTIME 11/25/13 [History] Levothyroxine Sodium [Synthroid] 150 mcg PO ACBREAKFAST 11/25/13 [History] Nitroglycerin [Nitrostat] 0.4 mg SL Q5M PRN MDD 3 11/25/13 [History] Psyllium [Metamucil SF] 1 tbsp PO DAILY PRN 11/25/13 [History] amLODIPine Besylate [Amlodipine Besylate] 2.5 mg PO DAILY 11/25/13 [History] Acetaminophen 650 mg PO Q6HR PRN 03/28/15 [History] Albuterol [Proventil HFA] 2 inh INH ASDIRECTED PRN 03/28/15 [History] Potassium Chloride 40 meq PO QID 03/28/15 [History] Cholecalciferol (Vitamin D3) [Vitamin D3] 1,000 units PO TID 03/29/15 [History] Carvedilol [Coreg] 6.25 mg PO BIDMEALS 03/27/16 [History] Cyanocobalamin (Vitamin B12) [Vitamin B12] 100 mcg PO DAILY 03/27/16 [History] Hypromellose/PF [Retaine Hpmc 0.3% Eye Drops] 1 drop EYEBOTH QID PRN 03/27/16 [ History] Meclizine [Antivert] 25 mg PO QID PRN 03/27/16 [History] Pantoprazole Sodium [Protonix] 40 mg PO DAILY 03/27/16 [History] Docusate Sodium 100 mg PO BID 08/30/16 [History] Allopurinol [Zyloprim] 100 mg PO BID 05/02/17 [History] Bumetanide [Bumex] 2 mg PO TID 05/02/17 [History] Warfarin [Coumadin] 3 mg PO DAILY 05/02/17 [History] traMADol [Ultram] 50 mg PO DAILY PRN 05/02/17 [History] Albuterol [Proventil Neb Soln] 1 ampule INH Q6H PRN 04/10/18 [History] Amitriptyline [Elavil] 10 - 20 mg PO BEDTIME PRN 04/10/18 [History] Cinnamon Bark [Cinnamon] 1,000 mg PO DAILY 04/10/18 [History] Dextrose Tabs 16 g PO ASDIRECTED PRN 04/10/18 [History] Ondansetron [Zofran] 4 mg PO Q6H PRN 04/10/18 [History] Pantothenic Acid 500 mg PO BEDTIME 04/10/18 [History] aMILoride HCl [Amiloride HCl] 5 mg PO DAILY 04/10/18 [History] metOLazone [Metolazone] 2.5 mg PO .TWICEWEEKLY 04/10/18 [History] Insulin Detemir [Levemir] 50 unit SQ BID #1 pen 04/22/18 [Rx] Insulin Lispro [HumaLOG] 30 unit SUBCUT TIDMEALS vial 04/22/18 [Rx] Calcitriol 0.25 mcg PO ASDIRECTED 12/12/18 [History] amLODIPine Besylate [Amlodipine Besylate] 12/12/18 [History] amLODIPine Besylate [Amlodipine Besylate] 0.5 tab PO DAILY 12/12/18 [History] Past Medical History HEENT History: Reports: Cataract, Impaired Vision, Other (See Below) Other HEENT History: HEARING LOSS TOTAL-RIGHT PARTIAL-LEFT, WEARS BILAT HEARING AIDES Cardiovascular History: Reports: Afib, Blood Clots/VTE/DVT, CAD, Heart Failure, Hypertension, FL, Stents, Other (See Below) Other Cardiovascular History: CAROTID ARTERY DISEASE. HEART FAILURE WITH PRESERVED EJECTION FRACTION. HYPERTENSIVE HEART DISEASE. TIA. ACUTE ON CHRONIC DIASTOLIC CONGESTIVE HEART FAILURE Respiratory History: Reports: Asthma, Bronchitis, Recurrent, Sleep Apnea Gastrointestinal History: Reports: Cholelithiasis, Chronic Constipation, GERD, Hemorrhoids, Irritable Bowel Syndrome Other Gastrointestinal History: DENIES CONSTIPATION Genitourinary History: Reports: Chronic Renal Insuffiency, Renal Calculus, Other (See Below) Other Genitourinary History: CKD STAGE III TILER'S ASSISTANT History: Reports: Other (See Below) Other TILER'S ASSISTANT History: UTERUS WAS ADHESED TO HER SPINE Musculoskeletal History: Reports: Back Pain, Chronic, Fracture, Osteoarthritis Other Musculoskeletal History: FRACTURED ARM WHEN SHE WAS YOUNG Neurological History: Reports: Headaches, Chronic, TIA, Other (See Below) Other Neuro History: NORMAL PRESSURE HYDROCEPHALUS. SUBDURAL HEMATOMA. lorazepam controls headaches from shunt Psychiatric History: Reports: Depression Endocrine/Metabolic History: Reports: Diabetes, Type II, Hypothyroidism, Obesity /BMI 30+, Osteoporosis, Vitamin D Deficiency Hematologic History: Reports: Blood Transfusion(s) Immunologic History: Reports: None Oncologic (Cancer) History: Reports: Malignant Melanoma Dermatologic History: Reports: None - Infectious Disease History Infectious Disease History: Reports: Chicken Pox, Measles, Mumps, Shingles, Other (See Below) Other Infectious Disease History: EXPOSED TO SOMETHING IN [place] IN LATE 70'S THAT AFFECTED LUNGS, CANT RMEMEBER - Past Surgical History Head Surgeries/Procedures: Reports: Shunt HEENT Surgical History: Reports: Adenoidectomy, Cataract Surgery, Tonsillectomy Other HEENT Surgeries/Procedures: PE TUBE PLACEMENT/REMOVAL RIGHT EAR. BILAT CATARACT EXTRACTION WITH LENS IMPLANTS Cardiovascular Surgical History: Reports: Carotid Endarterectomy, Coronary Artery Stent Other Cardiovascular Surgeries/Procedures: IVC FILTER PLACEMENT & REMOVAL Respiratory Surgical History: Reports: None GI Surgical History: Reports: Appendectomy, Colon, Colonoscopy, EGD, Polypectomy , Other (See Below) Other GI Surgeries/Procedures: large colon mostly resected - annotated redundant bowel Female Surgical History: Reports: Breast Biopsy, Cystectomy, Hysterectomy, Salpingo-Oophorectomy, Other (See Below) Other Female Surgeries/Procedures: breast cyst Endocrine Surgical History: Reports: None Neurological Surgical History: Reports: Other (See Below) Other Neurological Surgeries/Procedures: spinal tap and INGOT CASTER shunt (2007) Musculoskeletal Surgical History: Reports: None Oncologic Surgical History: Reports: Biopsy of Breast Dermatological Surgical History: Reports: None Social & Family History - Family History Family Medical History: Noncontributory - Caffeine Use Caffeine Use: Reports: Coffee, Soda, Tea Caffeine Use Comment: 1 CUP COFFEE. 2 CUPS TEA - Living Situation & Occupation Living situation: Reports: with Family Occupation: Retired ED ROS GENERAL - Review of Systems Review Of Systems: ROS reveals no pertinent complaints other than HPI. ED EXAM, HEAD INJURY - Physical Exam Exam: See Below Head: Atraumatic, Normocephalic, Other (tender over forehead) Eyes: Bilateral Eye: Normal Inspection Ears: Normal External Exam Nose: Normal Inspection Throat/Mouth: Normal Inspection, Normal Lips, Normal Oropharynx, No Airway Compromise Neck: Tenderness, Other (C-collar intact) Respiratory: No Respiratory Distress, Lungs Clear, Normal Breath Sounds, No Accessory Muscle Use, Other (Mild chest tenderness with palpaton te) Cardiovascular: Normal Peripheral Pulses, Regular Rate, Rhythm, No Edema, No Gallop, No Murmur, No Rub GI/Abdominal Exam: Normal Bowel Sounds Back Exam: Normal Inspection Extremities: Normal Inspection 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 Care 12/12/18 17:15 Ordered PC] Q24H Urinary Catheter Assessment [RC] ASDIRECTED Care 12/12/18 17:08 Active Abdomen Pelvis wo Cont [CT] Urgent Exams 12/12/18 16:33 Taken Cervical Spine wo Cont [CT] Urgent Exams 12/12/18 16:33 Taken Head wo Cont [CT] Urgent Exams 12/12/18 16:33 Taken Hemoccult, Stool [OCCULT BLOOD DIAGNOSTIC] [OP] Stat Lab 12/12/18 17:04 Received Cath 14F x 20 Kit Routine (1) Oth 12/12/18 17:06 Ordered Labs: Laboratory Tests 12/12/18 12/12/18 12/12/18 Range/Units 16:20 16:20 16:20 WBC 8.8 (5.0-10.0) 10^3/uL RBC 3.60 L (4.2-5.4) 10^6/uL Hgb 9.3 L D (12.0-16.0) g/dL Hct 31.5 L (37.0-47.0) % MCV 87.5 (80-100) fL MCH 25.8 L (27.0-34.0) pg MCHC 29.5 L (33.0-35.0) g/dL Plt Count 229 D (150-450) 10^3/uL PT 31.3 H (9.0-12.0) SEC INR 3.3 H (0.9-1.2) Sodium 136 (135-145) mmol/L Potassium 3.5 L (3.6-5.0) mmol/L Chloride 95 L (101-111) mmol/L Carbon Dioxide 29.0 (21.0-31.0) mmol/L Anion Gap 15.5 BUN 30 H (7-18) mg/dL Creatinine 1.6 H (0.6-1.3) mg/dL Est Cr Clr Drug Dosing TNP Estimated GFR (MDRD) 31 BUN/Creatinine Ratio 18.75 Glucose 429 H* (74-105) mg/dL Lactic Acid (0.5-2.2) mmol/L Calcium 9.2 (8.4-10.2) mg/dl Total Bilirubin 0.9 (0.2-1.0) mg/dL AST 47 H (10-42) IU/L ALT 31 (10-60) IU/L Alkaline Phosphatase 228 H (42-121) IU/L Total Protein 6.6 L (6.7-8.2) g/dl Albumin 3.3 (3.2-5.5) g/dl Globulin 3.3 Albumin/Globulin Ratio 1.00 Urine Color (YELLOW) Urine Appearance (CLEAR) Urine pH (5.0-9.0) Ur Specific [place] (1.005-1.030) Urine Protein (NEGATIVE) Urine Glucose (UA) (NEGATIVE) Urine Ketones (NEGATIVE) Urine Occult Blood (NEGATIVE) Urine Nitrite (NEGATIVE) Urine Bilirubin (NEGATIVE) Urine Urobilinogen (0.2-1.0) mg/dL Ur Leukocyte Esterase (NEGATIVE) 12/12/18 12/12/18 Range/Units 17:10 17:19 WBC (5.0-10.0) 10^3/uL RBC (4.2-5.4) 10^6/uL Hgb (12.0-16.0) g/dL Hct (37.0-47.0) % MCV (80-100) fL MCH (27.0-34.0) pg MCHC (33.0-35.0) g/dL Plt Count (150-450) 10^3/uL PT (9.0-12.0) SEC INR (0.9-1.2) Sodium (135-145) mmol/L Potassium (3.6-5.0) mmol/L Chloride (101-111) mmol/L Carbon Dioxide (21.0-31.0) mmol/L Anion Gap BUN (7-18) mg/dL Creatinine (0.6-1.3) mg/dL Est Cr Clr Drug Dosing Estimated GFR (MDRD) BUN/Creatinine Ratio Glucose (74-105) mg/dL Lactic Acid 2.4 H (0.5-2.2) mmol/L Calcium (8.4-10.2) mg/dl Total Bilirubin (0.2-1.0) mg/dL AST (10-42) IU/L ALT (10-60) IU/L Alkaline Phosphatase (42-121) IU/L Total Protein (6.7-8.2) g/dl Albumin (3.2-5.5) g/dl Globulin Albumin/Globulin Ratio Urine Color Yellow (YELLOW) Urine Appearance Clear (CLEAR) Urine pH 7.0 (5.0-9.0) Ur Specific [place] 1.015 (1.005-1.030) Urine Protein Negative (NEGATIVE) Urine Glucose (UA) 500 H (NEGATIVE) Urine Ketones Negative (NEGATIVE) Urine Occult Blood Negative (NEGATIVE) Urine Nitrite Negative (NEGATIVE) Urine Bilirubin Negative (NEGATIVE) Urine Urobilinogen 0.2 (0.2-1.0) mg/dL Ur Leukocyte Esterase Negative (NEGATIVE) Meds: Medications Discontinued Medications Generic Name Dose Route Start Last Admin Trade Name Freq PRN Reason Stop Dose Admin Insulin Human Regular 10 unit 12/12/18 17:22 12/12/18 17:35 Humulin R SUBCUT 12/12/18 17:23 10 units ONETIME ONE Administration - Radiology Interpretation Free Text/Narrative:: CT spine: No acute findings. See rad report. CT head: No acute intracranial hemorrhage. See rad report. CT chest, abdomen and pelvis: No sign of traumatic thoracic injury. Mild cardiomegaly with chronic pulmonary arterial hypertension. Multiple pulmonary nodules, largest measuring 6mm. Induration of the abdominal wall, possibly reflecting abdominal pelvic injury. Fat containing incisional supraumbilical hernia. Right renal cysts. See rad report. - Re-Assessments/Exams Free Text/Narrative Re-Assessment/Exam: 12/12/18 18:[address] head, cervical spine chest and abdomen (done non contrast due to severe allergies and she is not sure if allergic); patients c-collar removed and had her ambulate with walker; did well and not dizziness. Sister are here and live with her; very attentive. Labs: Glucose 424; 10 units regular insulin given. Repeat 380 at 1823. INR elevated at 3.3. Instructed not to take her Coumadin tonight. Then resume tomorrow and recheck INR in 3 days. Mild elevation in AST 47 Alk phos - 228 Anion gap normal. H/H bit low at 9.3/31.[address] head negative CT neck negative CT chest/abd normal Discharged with instructions to have INR repeated in 3 days; no Coumadin tonight. Resume her SS tonight when she gets home; prior to dinner. She will return if any nausea/vomiting with worsening ROMAN or any concerns. Departure - Departure Time of Disposition: 18:32 Disposition: Home, Self-Care 01 Preliminary Cause of *Q: Sepsis & Multi System Organ Failure Condition: Good Clinical Impression: Diabetes mellitus, type II, insulin dependent, On Coumadin for atrial fibrillation Head injury due to trauma Qualifiers: Encounter type: initial encounter Qualified Code(s): S09.90XA - Unspecified injury of head, initial encounter - Discharge Information *PRESCRIPTION DRUG MONITORING PROGRAM REVIEWED*: Not Applicable *COPY OF PRESCRIPTION DRUG MONITORING REPORT IN PATIENT JOSE: Not Applicable Instructions: Type 2 Diabetes Mellitus, Diagnosis, Adult, Fall Prevention in the Home, Adult, [id number] Forms: ED Department Discharge Additional Instructions: CT head negative CT neck negative CT chest/abd normal Discharged with instructions to have INR repeated in 3 days; no Coumadin tonight. Resume her SS tonight when she gets home; prior to dinner. She will return if any nausea/vomiting with worsening ROMAN or any concerns. Use walker and home with family - My Orders Last 24 Hours: My Active Orders 12/12/18 16:33 Abdomen Pelvis wo Cont [CT] Urgent Cervical Spine wo Cont [CT] Urgent Head wo Cont [CT] Urgent 12/12/18 17:04 Hemoccult, Stool [OCCULT BLOOD DIAGNOSTIC] [OP] Stat 12/12/18 17:06 Cath 14F x 20 Kit Routine (1) 12/12/18 17:08 Urinary Catheter Assessment [RC] ASDIRECTED 12/12/18 17:15 Qiu Catheter Insertion [Insert Urinary Catheter] [OM.PC] Q24H - Assessment/Plan Last 24 Hours: My Active Orders 12/12/18 16:33 Abdomen Pelvis wo Cont [CT] Urgent Cervical Spine wo Cont [CT] Urgent Head wo Cont [CT] Urgent 12/12/18 17:04 Hemoccult, Stool [OCCULT BLOOD DIAGNOSTIC] [OP] Stat 12/12/18 17:06 Cath 14F x 20 Kit Routine (1) 12/12/18 17:08 Urinary Catheter Assessment [RC] ASDIRECTED 12/12/18 17:15 Qiu Catheter Insertion [Insert Urinary Catheter] [OM.PC] Q24H I have read and agree with the documentation that has been completed regarding this visit. By signing this record, I attest that the documentation was completed in my physical presence and is an accurate record of the encounter.
[2018-12-12 18:51] VITALS: BP 130/53; PULSE 102
== END 2018-12-12 18:50 | disposition home or self-care (01) ==
LOC: DL.ED 16:11
DX: S09.90XA Unspecified injury of head, initial encounter (principal); I48.91 Unspecified atrial fibrillation; F32.9 Major depressive disorder, single episode, unspecified; I13.0 Hypertensive heart and chronic kidney disease with heart failure and stage 1 through stage 4 chronic kidney disease, or unspecified chronic kidney disease; N18.3 Chronic kidney disease, stage 3 (moderate); I50.9 Heart failure, unspecified; K21.9 Gastro-esophageal reflux disease without esophagitis; E11.22 Type 2 diabetes mellitus with diabetic chronic kidney disease; E66.9 Obesity, unspecified; Z88.2 Allergy status to sulfonamides; Z88.8 Allergy status to other drugs, medicaments and biological substances; Z88.5 Allergy status to narcotic agent; Z91.011 Allergy to milk products; Z88.0 Allergy status to penicillin; Z88.1 Allergy status to other antibiotic agents; Z79.4 Long term (current) use of insulin; Z91.041 Radiographic dye allergy status; Z79.51 Long term (current) use of inhaled steroids; Z79.01 Long term (current) use of anticoagulants; Z68.30 Body mass index [BMI] 30.0-30.9, adult; W01.0XXA Fall on same level from slipping, tripping and stumbling without subsequent striking against object, initial encounter
CPT/HCPCS: 36415; 51702; 70450; 72125; 74176; 80053; 81003; 82272; 82962; 83605; 85027; 85610; 99285; J1815

== ENCOUNTER 2019-05-18 19:52 | Emergency (ER) | payer BC, OTHER ==
[2019-05-18 20:21] VITALS: BP 125/68; PULSE 86
--- NOTE | 2019-05-18 20:48 | EDM.PDOC ---
ED HPI GENERAL MEDICAL PROBLEM - General Chief Complaint: Skin Complaint Stated Complaint: RIGHT ARM PAIN UP AND DOWN ARM. Time Seen by Provider: 05/18/19 20:48 Source of Information: Reports: Patient, RN History Limitations: Reports: No Limitations - History of Present Illness INITIAL COMMENTS - FREE TEXT/NARRATIVE: Ed with c/o right elbow pain since Friday. has not been seen in clinic. Denies injury. No fever or chills. No hx of skin infection. Noted increased apin tonight and some nausea now no vomiting. Last took Tramadol at 7pm. Hx of gout. Right Elbow Pain Score (Numeric/FACES): 9 - Related Data Allergies Allergy/AdvReac Type Severity Reaction Status Date / Time codeine Allergy Severe Rash Verified 05/18/19 20:17 indomethacin [From Indocin] Allergy Severe Other Verified 05/18/19 20:17 indomethacin sodium Allergy Severe Headache Verified 05/18/19 20:17 [From Indocin] Penicillins Allergy Severe Hives Verified 05/18/19 20:17 pentazocine [From Talwin] Allergy Severe Delusions Verified 05/18/19 20:17 Sulfa (Sulfonamide Allergy Severe Hives Verified 05/18/19 20:17 Antibiotics) sulfamethoxazole Allergy Severe Hives Verified 05/18/19 20:17 [From Bactrim] trimethoprim [From Bactrim] Allergy Severe Hives Verified 05/18/19 20:17 ampicillin Allergy Intermediate Hives Verified 05/18/19 20:17 atorvastatin calcium Allergy Mild Muscle Verified 05/18/19 20:17 [From Lipitor] Aches duloxetine HCl Allergy Mild Nausea Verified 05/18/19 20:17 [From Cymbalta] lactose Allergy Mild Diarrhea Verified 05/18/19 20:17 lisinopril Allergy Mild Cough Verified 05/18/19 20:17 metoprolol Allergy Mild Fatigue Verified 05/18/19 20:17 oxycodone [Oxycodone] Allergy Mild Other Verified 05/18/19 20:17 pravastatin Allergy Mild Muscle Verified 05/18/19 20:17 Aches simvastatin Allergy Mild Muscle Verified 05/18/19 20:17 Aches spironolactone Allergy Mild Headache Verified 05/18/19 20:17 tuberculin, purified protein Allergy Mild Rash Verified 05/18/19 20:17 deriva [tuberculin,purif.prot.deriv.] Iodinated Contrast Media Allergy Unknown Other Verified 05/18/19 20:17 [Iodinated Contrast Media - IV Dye] clindamycin Allergy Abdominal Verified 05/18/19 20:17 Pain clonazepam [From Klonopin] Allergy Other Verified 05/18/19 20:17 hydrochlorothiazide Allergy Lethargy Verified 05/18/19 20:17 tetanus toxoid, adsorbed Allergy Other Verified 05/18/19 20:17 zoster vaccine live Allergy Other Verified 05/18/19 20:17 flannel Allergy Burning Uncoded 05/18/19 20:17 Home Meds: Home Meds Isosorbide Mononitrate [Imdur] 60 mg PO DAILY 11/25/13 [History] LORazepam [Ativan] 0.5 mg PO BEDTIME PRN 11/25/13 [History] Levothyroxine Sodium [Synthroid] 150 mcg PO ACBREAKFAST 11/25/13 [History] Nitroglycerin [Nitrostat] 0.4 mg SL Q5M PRN MDD 3 11/25/13 [History] Psyllium [Metamucil SF] 1 tbsp PO DAILY PRN 11/25/13 [History] amLODIPine Besylate [Amlodipine Besylate] 2.5 mg PO DAILY 11/25/13 [History] Acetaminophen 650 mg PO Q6HR PRN 03/28/15 [History] Albuterol [Proventil HFA] 2 inh INH ASDIRECTED PRN 03/28/15 [History] Potassium Chloride 40 meq PO QID 03/28/15 [History] Cholecalciferol (Vitamin D3) [Vitamin D3] 1,000 units PO TID 03/29/15 [History] Carvedilol [Coreg] 6.25 mg PO BIDMEALS 03/27/16 [History] Cyanocobalamin (Vitamin B12) [Vitamin B12] 100 mcg PO DAILY 03/27/16 [History] Hypromellose/PF [Retaine Hpmc 0.3% Eye Drops] 1 drop EYEBOTH QID PRN 03/27/16 [ History] Meclizine [Antivert] 25 mg PO QID PRN 03/27/16 [History] Pantoprazole Sodium [Protonix] 40 mg PO DAILY 03/27/16 [History] Docusate Sodium 100 mg PO BID 08/30/16 [History] Bumetanide [Bumex] 2 mg PO TID 05/02/17 [History] Warfarin [Coumadin] 3 mg PO DAILY 05/02/17 [History] allopurinoL [Zyloprim] 100 mg PO BID 05/02/17 [History] traMADol [Ultram] 50 mg PO DAILY PRN 05/02/17 [History] Albuterol [Proventil Neb Soln] 1 ampule INH Q6H PRN 04/10/18 [History] Amitriptyline [Elavil] 10 - 20 mg PO BEDTIME PRN 04/10/18 [History] Cinnamon Bark [Cinnamon] 1,000 mg PO DAILY 04/10/18 [History] Dextrose Tabs 16 g PO ASDIRECTED PRN 04/10/18 [History] Ondansetron [Zofran] 4 mg PO Q6H PRN 04/10/18 [History] Pantothenic Acid 500 mg PO BEDTIME 04/10/18 [History] aMILoride HCl [Amiloride HCl] 5 mg PO DAILY 04/10/18 [History] metOLazone [Metolazone] 2.5 mg PO .TWICEWEEKLY 04/10/18 [History] Insulin Detemir [Levemir] 50 unit SQ BID #1 pen 04/22/18 [Rx] Insulin Lispro [HumaLOG] 30 unit SUBCUT TIDMEALS vial 04/22/18 [Rx] amLODIPine Besylate [Amlodipine Besylate] 0.5 tab PO DAILY 12/12/18 [History] amLODIPine Besylate [Amlodipine Besylate] 5 12/12/18 [History] calcitrioL [Calcitriol] 0.25 mcg PO ASDIRECTED 12/12/18 [History] Past Medical History HEENT History: Reports: Cataract, Impaired Vision, Other (See Below) Other HEENT History: HEARING LOSS TOTAL-RIGHT PARTIAL-LEFT, WEARS BILAT HEARING AIDES Cardiovascular History: Reports: Afib, Blood Clots/VTE/DVT, CAD, Heart Failure, Hypertension, DC, Stents, Other (See Below) Other Cardiovascular History: CAROTID ARTERY DISEASE. HEART FAILURE WITH PRESERVED EJECTION FRACTION. HYPERTENSIVE HEART DISEASE. TIA. ACUTE ON CHRONIC DIASTOLIC CONGESTIVE HEART FAILURE Respiratory History: Reports: Asthma, Bronchitis, Recurrent, Sleep Apnea Gastrointestinal History: Reports: Cholelithiasis, Chronic Constipation, GERD, Hemorrhoids, Irritable Bowel Syndrome Other Gastrointestinal History: DENIES CONSTIPATION Genitourinary History: Reports: Chronic Renal Insuffiency, Renal Calculus, Other (See Below) Other Genitourinary History: CKD STAGE III MAINTENANCE OF WAY CLERK History: Reports: Other (See Below) Other MAINTENANCE OF WAY CLERK History: UTERUS WAS ADHESED TO HER SPINE Musculoskeletal History: Reports: Back Pain, Chronic, Fracture, Osteoarthritis Other Musculoskeletal History: FRACTURED ARM WHEN SHE WAS YOUNG Neurological History: Reports: Headaches, Chronic, TIA, Other (See Below) Other Neuro History: NORMAL PRESSURE HYDROCEPHALUS. SUBDURAL HEMATOMA. lorazepam controls headaches from shunt Psychiatric History: Reports: Depression Endocrine/Metabolic History: Reports: Diabetes, Type II, Hypothyroidism, Obesity /BMI 30+, Osteoporosis, Vitamin D Deficiency Hematologic History: Reports: Blood Transfusion(s) Immunologic History: Reports: None Oncologic (Cancer) History: Reports: Malignant Melanoma Dermatologic History: Reports: None - Infectious Disease History Infectious Disease History: Reports: Chicken Pox, Measles, Mumps, Shingles, Other (See Below) Other Infectious Disease History: EXPOSED TO SOMETHING IN [place] IN LATE 70'S THAT AFFECTED LUNGS, CANT RMEMEBER - Past Surgical History Head Surgeries/Procedures: Reports: Shunt HEENT Surgical History: Reports: Adenoidectomy, Cataract Surgery, Tonsillectomy Other HEENT Surgeries/Procedures: PE TUBE PLACEMENT/REMOVAL RIGHT EAR. BILAT CATARACT EXTRACTION WITH LENS IMPLANTS Cardiovascular Surgical History: Reports: Carotid Endarterectomy, Coronary Artery Stent Other Cardiovascular Surgeries/Procedures: IVC FILTER PLACEMENT & REMOVAL Respiratory Surgical History: Reports: None GI Surgical History: Reports: Appendectomy, Colon, Colonoscopy, EGD, Polypectomy , Other (See Below) Other GI Surgeries/Procedures: large colon mostly resected - annotated redundant bowel Female Surgical History: Reports: Breast Biopsy, Cystectomy, Hysterectomy, Salpingo-Oophorectomy, Other (See Below) Other Female Surgeries/Procedures: breast cyst Endocrine Surgical History: Reports: None Neurological Surgical History: Reports: Other (See Below) Other Neurological Surgeries/Procedures: spinal tap and [employer] WORK[employer] shunt (2007) Musculoskeletal Surgical History: Reports: None Oncologic Surgical History: Reports: Biopsy of Breast Dermatological Surgical History: Reports: None Social & Family History - Family History Family Medical History: Noncontributory - Tobacco Use Smoking Status *Q: Never Smoker - Caffeine Use Caffeine Use: Reports: Coffee, Soda, Tea Caffeine Use Comment: 1 CUP COFFEE. 2 CUPS TEA - Recreational Drug Use Recreational Drug Use: No - Living Situation & Occupation Living situation: Reports: with Family Occupation: Retired ED ROS GENERAL - Review of Systems Review Of Systems: Comprehensive ROS is negative, except as noted in HPI. ED EXAM, SKIN/RASH Exam: See Below Exam Limited By: No Limitations General Appearance: Alert, Anxious Eye Exam: Bilateral Eye: EOMI Ears: Normal External Exam, Hearing Loss Nose: Normal Inspection Throat/Mouth: Normal Inspection Head: Atraumatic, Normocephalic Neck: Normal Inspection, Limited Range of Motion Respiratory/Chest: No Respiratory Distress, Lungs Clear, Normal Breath Sounds Cardiovascular: Regular Rate, Rhythm GI/Abdominal: Normal Bowel Sounds, Soft Extremities: Arm Pain (right elbow, mild effusion with tenderness, and slight redness approximately 5cm diameter. ) Neurological: Alert, Oriented, Normal Cognition Skin: Warm, Dry, Intact, Erythema Location, Skin: Upper Extremity, Right Course - Vital Signs Last Recorded V/S: Last Vital Signs Temp 97.4 F 05/18/19 20:17 Pulse 86 05/18/19 20:17 Resp 18 05/18/19 20:17 BP 125/68 05/18/19 20:17 Pulse Ox 96 05/18/19 20:17 - Orders/Labs/Meds Orders: Active Orders 24 hr Category Date Time Status CULTURE BLOOD [BC] Stat Lab 05/18/19 20:34 Received Labs: Laboratory Tests 05/18/19 05/18/19 05/18/19 Range/Units 20:34 20:34 20:34 WBC 13.2 H (5.0-10.0) 10^3/uL RBC 3.71 L (4.2-5.4) 10^6/uL Hgb 12.4 D (12.0-16.0) g/dL Hct 36.4 L (37.0-47.0) % MCV 98.1 D (80-100) fL MCH 33.4 (27.0-34.0) pg MCHC 34.1 (33.0-35.0) g/dL Plt Count 205 (150-450) 10^3/uL Neut % (Auto) 66.5 (42.2-75.2) % Lymph % (Auto) 10.8 L (20.5-50.1) % [place] % (Auto) 15.8 H (2-8) % Eos % (Auto) 6.4 H (1.0-3.0) % Baso % (Auto) 0.5 (0.0-1.0) % PT (9.0-12.0) SEC INR (0.9-1.2) Sodium 134 L (136-145) mmol/L Potassium 5.8 H (3.5-5.1) mmol/L Chloride 98 (98-107) mmol/L Carbon Dioxide 30 (21-32) mmol/L Anion Gap 11.8 (7-13) mEq/L BUN 38 H (7-18) mg/dL Creatinine 1.59 H (0.55-1.02) mg/dL Est Cr Clr Drug Dosing 22.69 mL/min Estimated GFR (MDRD) 31 BUN/Creatinine Ratio 23.9 (No establ ref range) Glucose 159 H (74-99) mg/dL Lactic Acid 1.4 (0.4-2.0) mmol/L Uric Acid (2.6-6.0) mg/dL Calcium 9.4 (8.5-10.1) mg/dL Total Bilirubin 0.5 (0.2-1.0) mg/dL AST 52 H (15-37) U/L ALT 42 (14-59) U/L Alkaline Phosphatase 290 H (46-116) U/L C-Reactive Protein (0.0-0.9) mg/dL Total Protein 7.2 (6.4-8.2) g/dL Albumin 3.2 L (3.4-5.0) g/dL Globulin 4.0 Albumin/Globulin Ratio 0.80 05/18/19 05/18/19 05/18/19 Range/Units 20:34 20:34 20:34 WBC (5.0-10.0) 10^3/uL RBC (4.2-5.4) 10^6/uL Hgb (12.0-16.0) g/dL Hct (37.0-47.0) % MCV (80-100) fL MCH (27.0-34.0) pg MCHC (33.0-35.0) g/dL Plt Count (150-450) 10^3/uL Neut % (Auto) (42.2-75.2) % Lymph % (Auto) (20.5-50.1) % [place] % (Auto) (2-8) % Eos % (Auto) (1.0-3.0) % Baso % (Auto) (0.0-1.0) % PT 20.1 H D (9.0-12.0) SEC INR 2.1 H (0.9-1.2) Sodium (136-145) mmol/L Potassium (3.5-5.1) mmol/L Chloride (98-107) mmol/L Carbon Dioxide (21-32) mmol/L Anion Gap (7-13) mEq/L BUN (7-18) mg/dL Creatinine (0.55-1.02) mg/dL Est Cr Clr Drug Dosing mL/min Estimated GFR (MDRD) BUN/Creatinine Ratio (No establ ref range) Glucose (74-99) mg/dL Lactic Acid (0.4-2.0) mmol/L Uric Acid 9.2 H (2.6-6.0) mg/dL Calcium (8.5-10.1) mg/dL Total Bilirubin (0.2-1.0) mg/dL AST (15-37) U/L ALT (14-59) U/L Alkaline Phosphatase (46-116) U/L C-Reactive Protein 1.9 H (0.0-0.9) mg/dL Total Protein (6.4-8.2) g/dL Albumin (3.4-5.0) g/dL Globulin Albumin/Globulin Ratio Meds: Medications Discontinued Medications Generic Name Dose Route Start Last Admin Trade Name Freq PRN Reason Stop Dose Admin Allopurinol 100 mg 05/18/19 21:43 05/18/19 21:57 Zyloprim PO 05/18/19 21:44 100 mg ONETIME ONE Administration Ondansetron HCl 4 mg 05/18/19 21:45 05/18/19 21:57 Zofran Odt PO 05/18/19 21:46 4 mg ONETIME ONE Administration Departure - Departure Time of Disposition: 21:46 Disposition: Home, Self-Care 01 Condition: Good Clinical Impression: Hyperkalemia Gout Qualifiers: Gout site: elbow Gout etiology: unspecified cause Chronicity: acute Laterality : right Qualified Code(s): M10.9 - Gout, unspecified - Discharge Information *PRESCRIPTION DRUG MONITORING PROGRAM REVIEWED*: No *COPY OF PRESCRIPTION DRUG MONITORING REPORT IN PATIENT JOSE: No Instructions: Low-Purine Eating Plan, Hyperkalemia Referrals: Red Yates MD [Primary Care Provider] - Forms: ED Department Discharge Additional Instructions: dont take potassium tonight allopurinol 100mg one twice daily recheck potassium in clinic on monitor diet and monitor blood sugars more closely Sepsis Event Note - Evaluation Sepsis Screening Result: No Definite Risk - Focused Exam Vital Signs: Vital Signs Temp Pulse Resp BP Pulse Ox 05/18/19 20:17 97.4 F 86 18 125/68 96 Date Exam was Performed: 05/19/19 Time Exam was Performed: 05:53 - My Orders Last 24 Hours: My Active Orders 05/18/19 20:34 CULTURE BLOOD [BC] Stat - Assessment/Plan Last 24 Hours: My Active Orders 05/18/19 20:34 CULTURE BLOOD [BC] Stat
[2019-05-18 21:07] LABS: ANION GAP 11.8 mEq/L (7-13)
[2019-05-18] MEDS ORDERED: Allopurinol 100 MG Tab PO ONE (21:43)
[2019-05-18] MEDS ORDERED: Ondansetron 4 MG Tab.DIS PO ONE (21:45)
== END 2019-05-18 22:11 | disposition home or self-care (01) ==
LOC: DL.ED 19:52
DX: M10.9 Gout, unspecified (principal); E87.5 Hyperkalemia; I13.0 Hypertensive heart and chronic kidney disease with heart failure and stage 1 through stage 4 chronic kidney disease, or unspecified chronic kidney disease; E11.22 Type 2 diabetes mellitus with diabetic chronic kidney disease; N18.3 Chronic kidney disease, stage 3 (moderate); I50.33 Acute on chronic diastolic (congestive) heart failure; I48.91 Unspecified atrial fibrillation; I25.10 Atherosclerotic heart disease of native coronary artery without angina pectoris; I25.2 Old myocardial infarction; Z86.718 Personal history of other venous thrombosis and embolism; Z86.73 Personal history of transient ischemic attack (TIA), and cerebral infarction without residual deficits; J45.909 Unspecified asthma, uncomplicated; K21.9 Gastro-esophageal reflux disease without esophagitis; F32.9 Major depressive disorder, single episode, unspecified; E03.9 Hypothyroidism, unspecified; E66.9 Obesity, unspecified; Z68.41 Body mass index [BMI] 40.0-44.9, adult; Z88.5 Allergy status to narcotic agent; Z88.0 Allergy status to penicillin; Z88.2 Allergy status to sulfonamides; Z88.1 Allergy status to other antibiotic agents; Z88.8 Allergy status to other drugs, medicaments and biological substances; Z91.041 Radiographic dye allergy status; Z88.7 Allergy status to serum and vaccine; Z79.899 Other long term (current) drug therapy; Z79.01 Long term (current) use of anticoagulants; Z79.4 Long term (current) use of insulin
CPT/HCPCS: 36415; 73080; 80053; 83605; 84550; 85025; 85610; 86140; 87040; 99283; A9270

== ENCOUNTER 2019-06-15 14:46 | Emergency (ER) | payer BC, OTHER ==
[2019-06-15 14:55] VITALS: BP 153/65; PULSE 96
[2019-06-15] MEDS ORDERED: Sodium Chloride 0.9% 10 ML Syringe FLUSH PRN (14:57)
--- NOTE | 2019-06-15 15:10 | EDM.PDOC ---
ED HPI GENERAL MEDICAL PROBLEM - General Chief Complaint: Respiratory Problem Stated Complaint: shortness of breath Time Seen by Provider: 06/15/19 15:10 Source of Information: Reports: Patient, RN, RN Notes Reviewed History Limitations: Reports: No Limitations - History of Present Illness INITIAL COMMENTS - FREE TEXT/NARRATIVE: Presents to ER with complaint of increased shortness of breath which began last evening. Patient states today she felt as though she was having a difficult him staying awake. She denies cough or sore throat, denies fever or chills. Patient states she does take water pills, and states she has been taking her medications as prescribed. Patient's admits to having black bloody stools for the past few days. Admits to nausea but denies any vomiting or diarrhea. Denies bloody emesis. Onset: Gradual Chest Pain Score (Numeric/FACES): 6 - Related Data Allergies Allergy/AdvReac Type Severity Reaction Status Date / Time codeine Allergy Severe Rash Verified 05/18/19 20:17 indomethacin [From Indocin] Allergy Severe Other Verified 05/18/19 20:17 indomethacin sodium Allergy Severe Headache Verified 05/18/19 20:17 [From Indocin] Penicillins Allergy Severe Hives Verified 05/18/19 20:17 pentazocine [From Talwin] Allergy Severe Delusions Verified 05/18/19 20:17 Sulfa (Sulfonamide Allergy Severe Hives Verified 05/18/19 20:17 Antibiotics) sulfamethoxazole Allergy Severe Hives Verified 05/18/19 20:17 [From Bactrim] trimethoprim [From Bactrim] Allergy Severe Hives Verified 05/18/19 20:17 ampicillin Allergy Intermediate Hives Verified 05/18/19 20:17 atorvastatin calcium Allergy Mild Muscle Verified 05/18/19 20:17 [From Lipitor] Aches duloxetine HCl Allergy Mild Nausea Verified 05/18/19 20:17 [From Cymbalta] lactose Allergy Mild Diarrhea Verified 05/18/19 20:17 lisinopril Allergy Mild Cough Verified 05/18/19 20:17 metoprolol Allergy Mild Fatigue Verified 05/18/19 20:17 oxycodone [Oxycodone] Allergy Mild Other Verified 05/18/19 20:17 pravastatin Allergy Mild Muscle Verified 05/18/19 20:17 Aches simvastatin Allergy Mild Muscle Verified 05/18/19 20:17 Aches spironolactone Allergy Mild Headache Verified 05/18/19 20:17 tuberculin, purified protein Allergy Mild Rash Verified 05/18/19 20:17 deriva [tuberculin,purif.prot.deriv.] Iodinated Contrast Media Allergy Unknown Other Verified 05/18/19 20:17 [Iodinated Contrast Media - IV Dye] clindamycin Allergy Abdominal Verified 05/18/19 20:17 Pain clonazepam [From Klonopin] Allergy Other Verified 05/18/19 20:17 hydrochlorothiazide Allergy Lethargy Verified 05/18/19 20:17 tetanus toxoid, adsorbed Allergy Other Verified 05/18/19 20:17 zoster vaccine live Allergy Other Verified 05/18/19 20:17 flannel Allergy Burning Uncoded 05/18/19 20:17 Home Meds: Home Meds Isosorbide Mononitrate [Imdur] 60 mg PO DAILY 11/25/13 [History] LORazepam [Ativan] 0.5 mg PO BEDTIME PRN 11/25/13 [History] Levothyroxine Sodium [Synthroid] 150 mcg PO ACBREAKFAST 11/25/13 [History] Nitroglycerin [Nitrostat] 0.4 mg SL Q5M PRN MDD 3 11/25/13 [History] Psyllium [Metamucil SF] 1 tbsp PO DAILY PRN 11/25/13 [History] amLODIPine Besylate [Amlodipine Besylate] 2.5 mg PO DAILY 11/25/13 [History] Acetaminophen 650 mg PO Q6HR PRN 03/28/15 [History] Albuterol [Proventil HFA] 2 inh INH ASDIRECTED PRN 03/28/15 [History] Potassium Chloride 40 meq PO QID 03/28/15 [History] Cholecalciferol (Vitamin D3) [Vitamin D3] 1,000 units PO TID 03/29/15 [History] Carvedilol [Coreg] 6.25 mg PO BIDMEALS 03/27/16 [History] Cyanocobalamin (Vitamin B12) [Vitamin B12] 100 mcg PO DAILY 03/27/16 [History] Hypromellose/PF [Retaine Hpmc 0.3% Eye Drops] 1 drop EYEBOTH QID PRN 03/27/16 [ History] Meclizine [Antivert] 25 mg PO QID PRN 03/27/16 [History] Pantoprazole Sodium [Protonix] 40 mg PO DAILY 03/27/16 [History] Docusate Sodium 100 mg PO BID 08/30/16 [History] Bumetanide [Bumex] 2 mg PO TID 05/02/17 [History] Warfarin [Coumadin] 3 mg PO DAILY 05/02/17 [History] allopurinoL [Zyloprim] 100 mg PO BID 05/02/17 [History] traMADol [Ultram] 50 mg PO DAILY PRN 05/02/17 [History] Albuterol [Proventil Neb Soln] 1 ampule INH Q6H PRN 04/10/18 [History] Amitriptyline [Elavil] 10 - 20 mg PO BEDTIME PRN 04/10/18 [History] Cinnamon Bark [Cinnamon] 1,000 mg PO DAILY 04/10/18 [History] Dextrose Tabs 16 g PO ASDIRECTED PRN 04/10/18 [History] Ondansetron [Zofran] 4 mg PO Q6H PRN 04/10/18 [History] Pantothenic Acid 500 mg PO BEDTIME 04/10/18 [History] aMILoride HCl [Amiloride HCl] 5 mg PO DAILY 04/10/18 [History] metOLazone [Metolazone] 2.5 mg PO .TWICEWEEKLY 04/10/18 [History] Insulin Detemir [Levemir] 50 unit SQ BID #1 pen 04/22/18 [Rx] Insulin Lispro [HumaLOG] 30 unit SUBCUT TIDMEALS vial 04/22/18 [Rx] amLODIPine Besylate [Amlodipine Besylate] 0.5 tab PO DAILY 12/12/18 [History] amLODIPine Besylate [Amlodipine Besylate] 5 12/12/18 [History] calcitrioL [Calcitriol] 0.25 mcg PO ASDIRECTED 12/12/18 [History] Past Medical History HEENT History: Reports: Cataract, Impaired Vision, Other (See Below) Other HEENT History: HEARING LOSS TOTAL-RIGHT PARTIAL-LEFT, WEARS BILAT HEARING AIDES Cardiovascular History: Reports: Afib, Blood Clots/VTE/DVT, CAD, Heart Failure, Hypertension, MO, Stents, Other (See Below) Other Cardiovascular History: CAROTID ARTERY DISEASE. HEART FAILURE WITH PRESERVED EJECTION FRACTION. HYPERTENSIVE HEART DISEASE. TIA. ACUTE ON CHRONIC DIASTOLIC CONGESTIVE HEART FAILURE Respiratory History: Reports: Asthma, Bronchitis, Recurrent, Sleep Apnea Gastrointestinal History: Reports: Cholelithiasis, Chronic Constipation, GERD, Hemorrhoids, Irritable Bowel Syndrome Other Gastrointestinal History: DENIES CONSTIPATION Genitourinary History: Reports: Chronic Renal Insuffiency, Renal Calculus, Other (See Below) Other Genitourinary History: CKD STAGE III PAINTER DRUM History: Reports: Other (See Below) Other PAINTER DRUM History: UTERUS WAS ADHESED TO HER SPINE Musculoskeletal History: Reports: Back Pain, Chronic, Fracture, Osteoarthritis Other Musculoskeletal History: FRACTURED ARM WHEN SHE WAS YOUNG Neurological History: Reports: Headaches, Chronic, TIA, Other (See Below) Other Neuro History: NORMAL PRESSURE HYDROCEPHALUS. SUBDURAL HEMATOMA. lorazepam controls headaches from shunt Psychiatric History: Reports: Depression Endocrine/Metabolic History: Reports: Diabetes, Type II, Hypothyroidism, Obesity /BMI 30+, Osteoporosis, Vitamin D Deficiency Hematologic History: Reports: Blood Transfusion(s) Immunologic History: Reports: None Oncologic (Cancer) History: Reports: Malignant Melanoma Dermatologic History: Reports: None - Infectious Disease History Infectious Disease History: Reports: Chicken Pox, Measles, Mumps, Shingles, Other (See Below) Other Infectious Disease History: EXPOSED TO SOMETHING IN [place] IN LATE 70'S THAT AFFECTED LUNGS, CANT RMEMEBER - Past Surgical History Head Surgeries/Procedures: Reports: Shunt HEENT Surgical History: Reports: Adenoidectomy, Cataract Surgery, Tonsillectomy Other HEENT Surgeries/Procedures: PE TUBE PLACEMENT/REMOVAL RIGHT EAR. BILAT CATARACT EXTRACTION WITH LENS IMPLANTS Cardiovascular Surgical History: Reports: Carotid Endarterectomy, Coronary Artery Stent Other Cardiovascular Surgeries/Procedures: IVC FILTER PLACEMENT & REMOVAL Respiratory Surgical History: Reports: None GI Surgical History: Reports: Appendectomy, Colon, Colonoscopy, EGD, Polypectomy , Other (See Below) Other GI Surgeries/Procedures: large colon mostly resected - annotated redundant bowel Female Surgical History: Reports: Breast Biopsy, Cystectomy, Hysterectomy, Salpingo-Oophorectomy, Other (See Below) Other Female Surgeries/Procedures: breast cyst Endocrine Surgical History: Reports: None Neurological Surgical History: Reports: Other (See Below) Other Neurological Surgeries/Procedures: spinal tap and [employer] SERVIC[employer]IST shunt (2007) Musculoskeletal Surgical History: Reports: None Oncologic Surgical History: Reports: Biopsy of Breast Dermatological Surgical History: Reports: None Social & Family History - Family History Family Medical History: Noncontributory - Tobacco Use Smoking Status *Q: Never Smoker Second Hand Smoke Exposure: No - Caffeine Use Caffeine Use: Reports: Coffee Caffeine Use Comment: 1 CUP COFFEE. 2 CUPS TEA - Recreational Drug Use Recreational Drug Use: No - Living Situation & Occupation Living situation: Reports: with Family Occupation: Retired ED ROS GENERAL - Review of Systems Review Of Systems: Comprehensive ROS is negative, except as noted in HPI. ED EXAM, GENERAL - Physical Exam Exam: See Below Exam Limited By: Physical Impairment General Appearance: Alert, WD/WN, Moderate Distress Eye Exam: Bilateral Eye: EOMI, Normal Inspection Ears: Normal External Exam, Hearing Grossly Normal Nose: Normal Inspection Throat/Mouth: Normal Inspection, Normal Voice, No Airway Compromise Head: Atraumatic, Normocephalic Neck: Normal Inspection, Supple, Non-Tender, Full Range of Motion Respiratory/Chest: Decreased Breath Sounds, Crackles (bases bilaterally), Wheezing Cardiovascular: Irregularly Irregular GI/Abdominal: Normal Bowel Sounds, Soft, Non-Tender (Female) Exam: Deferred Back Exam: Normal Inspection, Full Range of Motion, NT Extremities: Normal Inspection, Normal Range of Motion, Non-Tender, Normal Capillary Refill, No Pedal Edema Neurological: Alert, Oriented, CN II-XII Intact, Normal Cognition Psychiatric: Normal Affect, Normal Mood Skin Exam: Warm, Dry, Intact, Normal Color, No Rash Lymphatic: No Adenopathy Course - Vital Signs Last Recorded V/S: Last Vital Signs Temp 97.5 F 06/15/19 14:51 Pulse 96 06/15/19 14:51 Resp 20 06/15/19 14:51 BP 153/65 H 06/15/19 14:51 Pulse Ox 97 06/15/19 14:51 - Orders/Labs/Meds Orders: Active Orders 24 hr Category Date Time Status EKG Documentation Completion [RC] STAT Care 06/15/19 14:57 Active Peripheral IV Care [RC] . DIRECTED Care 06/15/19 14:58 Active Chest 1V Frontal [CR] Stat Exams 06/15/19 14:57 Taken Sodium Chloride 0.9% [Normal Saline] 1,000 ml Med 06/15/19 16:10 Ordered IV .BOLUS Sodium Chloride 0.9% [Saline Flush] Med 06/15/19 14:57 Active 10 ml FLUSH ASDIRECTED PRN Peripheral IV Insertion Adult [OM.PC] Stat Oth 06/15/19 14:57 Ordered Medication Orders Sodium Chloride (Normal Saline) 1,000 mls @ 999 mls/hr IV .BOLUS ONE Stop: 06/15/19 17:10 Sodium Chloride (Saline Flush) 10 ml FLUSH ASDIRECTED PRN PRN Reason: Keep Vein Open Last Admin: 06/15/19 15:10 Dose: 10 ml Labs: Laboratory Tests 06/15/19 06/15/19 06/15/19 Range/Units 15:09 15:09 15:09 WBC 8.0 (5.0-10.0) 10^3/uL RBC 2.73 L (4.2-5.4) 10^6/uL Hgb 8.6 L D (12.0-16.0) g/dL Hct 27.5 L (37.0-47.0) % MCV 100.7 H (80-100) fL MCH 31.5 (27.0-34.0) pg MCHC 31.3 L (33.0-35.0) g/dL Plt Count 199 (150-450) 10^3/uL Neut % (Auto) 59.5 (42.2-75.2) % Lymph % (Auto) 13.2 L (20.5-50.1) % [place] % (Auto) 16.7 H (2-8) % Eos % (Auto) 10.1 H (1.0-3.0) % Baso % (Auto) 0.5 (0.0-1.0) % PT 33.2 H D (9.0-12.0) SEC INR 3.5 H (0.9-1.2) Sodium 133 L (136-145) mmol/L Potassium 5.2 H (3.5-5.1) mmol/L Chloride 98 (98-107) mmol/L Carbon Dioxide 27 (21-32) mmol/L Anion Gap 13.2 H (7-13) mEq/L BUN 36 H (7-18) mg/dL Creatinine 1.74 H (0.55-1.02) mg/dL Est Cr Clr Drug Dosing 20.73 mL/min Estimated GFR (MDRD) 28 BUN/Creatinine Ratio 20.7 (No establ ref range) Glucose 447 H* (74-99) mg/dL Calcium 8.9 (8.5-10.1) mg/dL Total Bilirubin 1.0 (0.2-1.0) mg/dL AST 101 H (15-37) U/L ALT 70 H (14-59) U/L Alkaline Phosphatase 345 H (46-116) U/L Troponin I 0.045 (0.000-0.056) ng/mL B-Natriuretic Peptide 351 H (0-100) pg/ml Total Protein 6.5 (6.4-8.2) g/dL Albumin 2.9 L (3.4-5.0) g/dL Globulin 3.6 Albumin/Globulin Ratio 0.81 Stool sample for occult blood: POSITIVE Meds: Medications Generic Name Dose Route Start Last Admin Trade Name Freq PRN Reason Stop Dose Admin Sodium Chloride 1,000 mls @ 999 mls/hr 06/15/19 16:10 Normal Saline IV 06/15/19 17:10 .BOLUS ONE Sodium Chloride 10 ml 06/15/19 14:57 06/15/19 15:10 Saline Flush FLUSH 10 ml ASDIRECTED PRN Administration Keep Vein Open Discontinued Medications Generic Name Dose Route Start Last Admin Trade Name Freq PRN Reason Stop Dose Admin Insulin Human Regular 10 unit 06/15/19 15:52 06/15/19 16:05 Humulin R IV 06/15/19 15:53 10 units ONETIME ONE Administration Pantoprazole Sodium 80 mg 06/15/19 15:52 06/15/19 16:06 Protonix Iv IVPUSH 06/15/19 15:53 80 mg .BOLUS ONE Administration - Radiology Interpretation Free Text/Narrative:: Chest xray: FINDINGS: Tubes, catheters and devices: There is a central venous catheter with right internal jugular venous approach. Catheter tip projects over central SVC shadow. Lungs: Unremarkable. No consolidation. Pleural space: Unremarkable. No pleural effusion. No pneumothorax. Heart/Mediastinum: Projection and portable technique exaggerates cardiac shadow. Bones/joints: Unremarkable. IMPRESSION: No acute findings. Thank you for allowing us to participate in the care of your patient. Dictated and Authenticated by: Fracisco Green MD 06/15/2019 3:30 PM Central Time ([place] & [place]) See rad report - Re-Assessments/Exams Free Text/Narrative Re-Assessment/Exam: 06/15/19 16:13 Pt case discussed with Dr. Mcmahon who agreed to accept the patient for transfer to [facility] in [place]. Departure - Departure Time of Disposition: 16:13 Disposition: DC/Tfer to Acute Hospital 02 Condition: Fair Clinical Impression: Hyperglycemia, Hyperkalemia, On Coumadin for atrial fibrillation GI bleed Qualifiers: GI bleed type/associated pathology: melena Qualified Code(s): K92.1 - Melena CHF (congestive heart failure) Qualifiers: Heart failure type: unspecified Heart failure chronicity: acute on chronic Qualified Code(s): I50.9 - Heart failure, unspecified Diabetes Qualifiers: Diabetes mellitus type: type 2 Diabetes mellitus long-term insulin use: with manager intermediate use Diabetes mellitus complication status: with hyperglycemia Qualified Code(s): E11.65 - Type 2 diabetes mellitus with hyperglycemia; Z79.4 - skilled nursing (current) use of insulin - Discharge Information *PRESCRIPTION DRUG MONITORING PROGRAM REVIEWED*: No *COPY OF PRESCRIPTION DRUG MONITORING REPORT IN PATIENT JOSE: No Forms: ED Department Discharge, Interfacility Transfer [facility] Sepsis Event Note - Evaluation Sepsis Screening Result: No Definite Risk - Focused Exam Vital Signs: Vital Signs Temp Pulse Resp BP Pulse Ox 06/15/19 14:51 97.5 F 96 20 153/65 H 97 Date Exam was Performed: 06/15/19 Time Exam was Performed: 16:13 - My Orders Last 24 Hours: My Active Orders 06/15/19 14:57 EKG Documentation Completion [RC] STAT Chest 1V Frontal [CR] Stat Sodium Chloride 0.9% [Saline Flush] 10 ml FLUSH ASDIRECTED PRN Peripheral IV Insertion Adult [OM.PC] Stat 06/15/19 14:58 Peripheral IV Care [RC] . DIRECTED 06/15/19 16:10 Sodium Chloride 0.9% [Normal Saline] 1,000 ml IV .BOLUS - Assessment/Plan Last 24 Hours: My Active Orders 06/15/19 14:57 EKG Documentation Completion [RC] STAT Chest 1V Frontal [CR] Stat Sodium Chloride 0.9% [Saline Flush] 10 ml FLUSH ASDIRECTED PRN Peripheral IV Insertion Adult [OM.PC] Stat 06/15/19 14:58 Peripheral IV Care [RC] . DIRECTED 06/15/19 16:10 Sodium Chloride 0.9% [Normal Saline] 1,000 ml IV .BOLUS
[2019-06-15 15:40] LABS: ANION GAP 13.2 mEq/L (7-13)
[2019-06-15] MEDS ORDERED: Pantoprazole 40 MG Vial IVPUSH ONE (15:52)
[2019-06-15] MEDS ORDERED: Insulin Regular, Human 100 Units/ML 3 ML Vial IV ONE (15:52)
[2019-06-15] MEDS ORDERED: Sodium Chloride 0.9% 1,000 ML IV ONE (16:10)
== END 2019-06-15 16:33 ==
LOC: DL.ED 14:46
DX: I13.0 Hypertensive heart and chronic kidney disease with heart failure and stage 1 through stage 4 chronic kidney disease, or unspecified chronic kidney disease (principal); E11.22 Type 2 diabetes mellitus with diabetic chronic kidney disease; N18.3 Chronic kidney disease, stage 3 (moderate); I50.33 Acute on chronic diastolic (congestive) heart failure; E11.65 Type 2 diabetes mellitus with hyperglycemia; E87.5 Hyperkalemia; K92.1 Melena; E03.9 Hypothyroidism, unspecified; E66.9 Obesity, unspecified; Z68.41 Body mass index [BMI] 40.0-44.9, adult; I48.91 Unspecified atrial fibrillation; I25.2 Old myocardial infarction; J45.909 Unspecified asthma, uncomplicated; K21.9 Gastro-esophageal reflux disease without esophagitis; M19.90 Unspecified osteoarthritis, unspecified site; F32.9 Major depressive disorder, single episode, unspecified; Z86.73 Personal history of transient ischemic attack (TIA), and cerebral infarction without residual deficits; Z88.5 Allergy status to narcotic agent; Z88.0 Allergy status to penicillin; Z88.2 Allergy status to sulfonamides; Z88.1 Allergy status to other antibiotic agents; Z88.8 Allergy status to other drugs, medicaments and biological substances; Z91.041 Radiographic dye allergy status; Z88.7 Allergy status to serum and vaccine; Z79.899 Other long term (current) drug therapy; Z79.4 Long term (current) use of insulin
CPT/HCPCS: 36415; 71045; 80053; 82272; 83880; 84484; 85025; 85610; 93005; 96374; 99285-25; C9113; J1815-GY; J7030

== ENCOUNTER 2019-09-17 16:44 | Observation (INO) | payer BC, MEDICARE, OTHER ==
[2019-09-17] MEDS ORDERED: fentaNYL 100 MCG/2 ML SDV IVPUSH ONE (16:53)
--- NOTE | 2019-09-17 16:57 | EDM.PDOC ---
ED HPI GENERAL MEDICAL PROBLEM - General Stated Complaint: AMBULANCE Time Seen by Provider: 09/17/19 16:45 Source of Information: Reports: Patient, EMS, EMS Notes Reviewed, RN, RN Notes Reviewed History Limitations: Reports: Physical Impairment - History of Present Illness INITIAL COMMENTS - FREE TEXT/NARRATIVE: Patient presents to ER per [facility] with complaint of fall. Patient states she was walking into the [facility] to have her INR drawn when she tripped over a rug and fell hitting her left arm and shoulder, as well as her head. Patient states she was not knocked out. Patient complains of 10/10 pain to the left shoulder/humerus area. Laceration/skin tear to the right thumb. Large hematoma to the left anterior scalp area. Alert and oriented x3 GCS upon arrival = 15 GCS at 1 hour = 15 Onset: Today, Sudden Left shoulder/arm Pain Score (Numeric/FACES): 10 - Related Data Allergies Allergy/AdvReac Type Severity Reaction Status Date / Time codeine Allergy Severe Rash Verified 09/17/19 20:26 indomethacin [From Indocin] Allergy Severe Other Verified 09/17/19 20:26 indomethacin sodium Allergy Severe Headache Verified 09/17/19 20:26 [From Indocin] Penicillins Allergy Severe Hives Verified 09/17/19 20:26 pentazocine [From Talwin] Allergy Severe Delusions Verified 09/17/19 20:26 Sulfa (Sulfonamide Allergy Severe Hives Verified 09/17/19 20:26 Antibiotics) sulfamethoxazole Allergy Severe Hives Verified 09/17/19 20:26 [From Bactrim] trimethoprim [From Bactrim] Allergy Severe Hives Verified 09/17/19 20:26 ampicillin Allergy Intermediate Hives Verified 09/17/19 20:26 atorvastatin calcium Allergy Mild Muscle Verified 09/17/19 20:26 [From Lipitor] Aches duloxetine HCl Allergy Mild Nausea Verified 09/17/19 20:26 [From Cymbalta] lactose Allergy Mild Diarrhea Verified 09/17/19 20:26 lisinopril Allergy Mild Cough Verified 09/17/19 20:26 metoprolol Allergy Mild Fatigue Verified 09/17/19 20:26 pravastatin Allergy Mild Muscle Verified 09/17/19 20:26 Aches simvastatin Allergy Mild Muscle Verified 09/17/19 20:26 Aches spironolactone Allergy Mild Headache Verified 09/17/19 20:26 tuberculin, purified protein Allergy Mild Rash Verified 09/17/19 20:26 deriva [tuberculin,purif.prot.deriv.] Iodinated Contrast Media Allergy Unknown Other Verified 09/17/19 20:26 [Iodinated Contrast Media - IV Dye] clindamycin Allergy Abdominal Verified 09/17/19 20:26 Pain clonazepam [From Klonopin] Allergy Other Verified 09/17/19 20:26 hydrochlorothiazide Allergy Lethargy Verified 09/17/19 20:26 tetanus toxoid, adsorbed Allergy Other Verified 09/17/19 20:26 zoster vaccine live Allergy Other Verified 09/17/19 20:26 oxycodone [Oxycodone] AdvReac Mild Other Verified 09/18/19 03:19 flannel Allergy Burning Uncoded 05/18/19 20:17 Home Meds: Home Meds LORazepam [Ativan] 1 mg PO BEDTIME PRN 11/25/13 [History] Levothyroxine Sodium [Synthroid] 150 mcg PO ACBREAKFAST 11/25/13 [History] Nitroglycerin [Nitrostat] 0.4 mg SL Q5M PRN MDD 3 11/25/13 [History] Psyllium [Metamucil SF] 1 tbsp PO DAILY PRN 11/25/13 [History] Albuterol [Proventil HFA] 2 inh INH Q6H PRN 03/28/15 [History] Potassium Chloride 50 meq PO BID 03/28/15 [History] Carvedilol [Coreg] 6.25 mg PO BIDMEALS 03/27/16 [History] Cyanocobalamin (Vitamin B12) [Vitamin B12] 100 mcg PO DAILY 03/27/16 [History] Hypromellose/PF [Retaine Hpmc 0.3% Eye Drops] 1 drop EYEBOTH Q4H PRN 03/27/16 [History] Meclizine [Antivert] 25 mg PO QID PRN 03/27/16 [History] Pantoprazole Sodium [Protonix] 40 mg PO DAILY 03/27/16 [History] Docusate Sodium 100 mg PO BID 08/30/16 [History] allopurinoL [Zyloprim] 100 mg PO BID 05/02/17 [History] traMADol [Ultram] 50 mg PO DAILY PRN 05/02/17 [History] Amitriptyline [Elavil] 20 mg PO BEDTIME 04/10/18 [History] Cinnamon Bark [Cinnamon] 1,000 mg PO DAILY 04/10/18 [History] Dextrose Tabs 16 g PO ASDIRECTED PRN 04/10/18 [History] Ondansetron [Zofran] 4 mg PO Q6H PRN 04/10/18 [History] Pantothenic Acid 500 mg PO BEDTIME 04/10/18 [History] aMILoride HCl [Amiloride HCl] 5 mg PO DAILY 04/10/18 [History] metOLazone [Metolazone] 2.5 mg PO .TWICEWEEKLY 04/10/18 [History] Insulin Lispro [HumaLOG] 30 unit SUBCUT TIDMEALS vial 04/22/18 [Rx] amLODIPine Besylate [Amlodipine Besylate] 2.5 mg PO DAILY 12/12/18 [History] calcitrioL [Calcitriol] 0.25 mcg PO ASDIRECTED 12/12/18 [History] Aspirin 81 mg PO DAILY 09/17/19 [History] Bumetanide [Bumex] 2 mg PO TID 09/17/19 [History] Cholecalciferol (Vitamin D3) [Vitamin D3] 75 mcg PO DAILY 09/17/19 [History] Diclofenac Sodium [Voltaren 1% Gel] 2 gm TOP QID PRN 09/17/19 [History] Isosorbide Mononitrate [Isosorbide Mononitrate ER] 90 mg PO DAILY 09/17/19 [History] Multivitamin [Multivitamins] 1 cap PO DAILY 09/17/19 [History] Potassium Chloride 40 meq PO 1200 09/17/19 [History] Rifaximin [Xifaxan] 1 tab PO BID 09/17/19 [History] Warfarin [Coumadin] 3.75 mg PO DAILY 09/17/19 [History] Albuterol [Proventil Neb Soln] 2.5 mg NEB Q6HRRT PRN 09/18/19 [History] Insulin Detemir [Levemir] 50 unit SQ BEDTIME 09/18/19 [History] Insulin Detemir [Levemir] 70 unit SUBCUT DAILY 09/18/19 [History] Past Medical History HEENT History: Reports: Cataract, Impaired Vision, Other (See Below) Other HEENT History: HEARING LOSS TOTAL-RIGHT PARTIAL-LEFT, WEARS BILAT HEARING AIDES Cardiovascular History: Reports: Afib, Blood Clots/VTE/DVT, CAD, Heart Failure, Hypertension, ND, Stents, Other (See Below) Other Cardiovascular History: CAROTID ARTERY DISEASE. HEART FAILURE WITH PRESERVED EJECTION FRACTION. HYPERTENSIVE HEART DISEASE. TIA. ACUTE ON CHRONIC DIASTOLIC CONGESTIVE HEART FAILURE Respiratory History: Reports: Asthma, Bronchitis, Recurrent, Sleep Apnea Gastrointestinal History: Reports: Cholelithiasis, Chronic Constipation, GERD, Hemorrhoids, Irritable Bowel Syndrome Other Gastrointestinal History: DENIES CONSTIPATION Genitourinary History: Reports: Chronic Renal Insuffiency, Renal Calculus, Other (See Below) Other Genitourinary History: CKD STAGE III ELEVATOR ERECTOR History: Reports: Other (See Below) Other ELEVATOR ERECTOR History: UTERUS WAS ADHESED TO HER SPINE Musculoskeletal History: Reports: Back Pain, Chronic, Fracture, Osteoarthritis Other Musculoskeletal History: FRACTURED ARM WHEN SHE WAS YOUNG Neurological History: Reports: Headaches, Chronic, TIA, Other (See Below) Other Neuro History: NORMAL PRESSURE HYDROCEPHALUS. SUBDURAL HEMATOMA. lorazepam controls headaches from shunt Psychiatric History: Reports: Depression Endocrine/Metabolic History: Reports: Diabetes, Type II, Hypothyroidism, Obesity/BMI 30+, Osteoporosis, Vitamin D Deficiency Hematologic History: Reports: Blood Transfusion(s) Immunologic History: Reports: None Oncologic (Cancer) History: Reports: Malignant Melanoma Dermatologic History: Reports: None - Infectious Disease History Infectious Disease History: Reports: Chicken Pox, Measles, Mumps, Shingles, Other (See Below) Other Infectious Disease History: EXPOSED TO SOMETHING IN [place] IN LATE 70'S THAT AFFECTED LUNGS, CANT RMEMEBER - Past Surgical History Head Surgeries/Procedures: Reports: Shunt HEENT Surgical History: Reports: Adenoidectomy, Cataract Surgery, Tonsillectomy Other HEENT Surgeries/Procedures: PE TUBE PLACEMENT/REMOVAL RIGHT EAR. BILAT CATARACT EXTRACTION WITH LENS IMPLANTS Cardiovascular Surgical History: Reports: Carotid Endarterectomy, Coronary Artery Stent Other Cardiovascular Surgeries/Procedures: IVC FILTER PLACEMENT & REMOVAL Respiratory Surgical History: Reports: None GI Surgical History: Reports: Appendectomy, Colon, Colonoscopy, EGD, Polypectomy, Other (See Below) Other GI Surgeries/Procedures: large colon mostly resected - annotated redundant bowel Female Surgical History: Reports: Breast Biopsy, Cystectomy, Hysterectomy, Salpingo-Oophorectomy, Other (See Below) Other Female Surgeries/Procedures: breast cyst Endocrine Surgical History: Reports: None Neurological Surgical History: Reports: Other (See Below) Other Neurological Surgeries/Procedures: spinal tap 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 2 CUPS TEA - Living Situation & Occupation Living situation: Reports: with Family Occupation: Retired Review of Systems - Review of Systems Review Of Systems: Comprehensive ROS is negative, except as noted in HPI. ED EXAM, GENERAL - Physical Exam Exam: See Below Exam Limited By: No Limitations General Appearance: Alert, WD/WN, Moderate Distress, Other (Hollering out in pain) Eye Exam: Bilateral Eye: EOMI, Normal Inspection Ears: Normal External Exam Nose: Normal Inspection Throat/Mouth: Normal Inspection, Normal Voice, No Airway Compromise Head: Other (large hematoma to the left anterior scalp) Respiratory/Chest: No Respiratory Distress, Lungs Clear, Normal Breath Sounds, No Accessory Muscle Use, Chest Non-Tender, Decreased Breath Sounds Cardiovascular: Normal Peripheral Pulses, No Edema, No Gallop, No JVD, No Murmur, No Rub, Irregularly Irregular Peripheral Pulses: 2+: Radial (L), Radial (R) GI/Abdominal: Normal Bowel Sounds, Soft, Non-Tender (Female) Exam: Deferred Rectal (Female) Exam: Deferred Back Exam: Normal Inspection, Decreased Range of Motion Extremities: No Pedal Edema, Arm Pain (left upper arm pain), Limited Range of Motion (left arm) Neurological: Alert, Oriented, CN II-XII Intact, Normal Cognition Psychiatric: Anxious, Tearful Skin Exam: Warm, Dry, Other (skin tear to the right elbow, right thumb) Lymphatic: No Adenopathy Course - Vital Signs Last Recorded V/S: Last Vital Signs Temp 97.5 F 09/18/19 04:55 Pulse 102 H 09/18/19 04:55 Resp 18 09/18/19 04:55 BP 120/77 09/18/19 04:55 Pulse Ox 96 09/18/19 04:55 - Orders/Labs/Meds Orders: Active Orders 24 hr Category Date Time Status CULTURE URINE [RM] Stat Lab 09/17/19 18:20 Received Sodium Chloride 0.9% [Saline Flush] Med 09/17/19 16:53 Active 10 ml FLUSH ASDIRECTED PRN Peripheral IV Insertion Adult [OM.PC] Stat Oth 09/17/19 16:53 Ordered Medication Orders Albuterol (Proventil Neb Soln) 2.5 mg INH Q6H PRN PRN Reason: Wheezing Albuterol (Proventil Hfa) 0 gm INH Q6H PRN PRN Reason: Dyspnea Allopurinol (Zyloprim) 100 mg PO BID [facility] Last Admin: 09/17/19 23:25 Dose: 100 mg Documented by: JOSE Amitriptyline HCl (Elavil) 20 mg PO BEDTIME PRN PRN Reason: Insomnia Amlodipine Besylate (Norvasc) 2.5 mg PO DAILY [facility] Bumetanide (Bumex) 2 mg PO TID@0800,1200,1600 [facility] Last Admin: 09/17/19 23:46 Dose: Not Given Documented by: JOSE Calcitriol (Rocaltrol) 0.25 mcg PO MoFr@0900 [facility] Carvedilol (Coreg) 6.25 mg PO BIDMEALS [facility] Cyanocobalamin (Vitamin B12) 100 mcg PO DAILY [facility] Hydromorphone HCl (Dilaudid) 1 mg IV Q2H PRN PRN Reason: Pain (severe 7-10) Last Admin: 09/18/19 06:26 Dose: 1 mg Documented by: Admin: 09/18/19 02:28 Dose: 1 mg Documented by: Admin: 09/17/19 22:53 Dose: 1 mg Documented by: Admin: 09/17/19 20:51 Dose: 1 mg Documented by: JOSE Sodium Chloride (Normal Saline) 1,000 mls @ 75 mls/hr IV ASDIRECTED [facility] Last Admin: 09/17/19 22:53 Dose: 75 mls/hr Documented by: JOSE Insulin Human Lispro (Humalog) 30 unit SUBCUT TIDMEALS [facility] Isosorbide Mononitrate (Imdur) 90 mg PO DAILY [facility] Levothyroxine Sodium (Levothyroxine) 150 mcg PO ACBREAKFAST [facility] Last Admin: 09/18/19 05:47 Dose: 150 mcg Documented by: JOSE Lorazepam (Ativan) 1 mg PO BEDTIME PRN PRN Reason: Anxiety Meclizine HCl (Antivert) 25 mg PO QID PRN PRN Reason: vertigo Metolazone (Zaroxolyn) 2.5 mg PO SuTh@0900 [facility] Non-Formulary Medication (Amiloride Hcl) 5 mg PO DAILY [facility] Ondansetron HCl (Zofran) 4 mg IVPUSH Q6H PRN PRN Reason: Nausea/Vomiting Last Admin: 09/18/19 02:25 Dose: 4 mg Documented by: JOSE Oxycodone HCl (Oxycodone) 5 mg PO Q4H PRN PRN Reason: Pain (moderate 4-6) Last Admin: 09/17/19 22:54 Dose: 5 mg Documented by: JOSE Pantoprazole Sodium (Protonix) 40 mg PO ACBREAKFAST [facility] Last Admin: 09/18/19 05:47 Dose: 40 mg Documented by: JOSE Potassium Chloride (Klor-Con 10) 40 meq PO DAILY@1200 [facility] Sodium Chloride (Saline Flush) 10 ml FLUSH ASDIRECTED PRN PRN Reason: Keep Vein Open Last Admin: 09/18/19 02:25 Dose: 10 ml Documented by: Admin: 09/17/19 17:02 Dose: 10 ml Documented by: LINDEN Labs: Laboratory Tests 09/17/19 09/17/19 09/17/19 Range/Units 16:50 16:50 16:50 WBC 10.0 (5.0-10.0) 10^3/uL RBC 4.34 (4.2-5.4) 10^6/uL Hgb 13.8 D (12.0-16.0) g/dL Hct 42.0 (37.0-47.0) % MCV 96.8 D (80-100) fL MCH 31.8 (27.0-34.0) pg MCHC 32.9 L (33.0-35.0) g/dL Plt Count 171 (150-450) 10^3/uL Neut % (Auto) 65.0 (42.2-75.2) % Lymph % (Auto) 12.2 L (20.5-50.1) % Williams % (Auto) 14.0 H (2-8) % Eos % (Auto) 8.3 H (1.0-3.0) % Baso % (Auto) 0.5 (0.0-1.0) % PT 40.9 H (9.0-12.0) SEC INR 4.4 H (0.9-1.2) Sodium 136 (136-145) mmol/L Potassium 3.7 D (3.5-5.1) mmol/L Chloride 98 (98-107) mmol/L Carbon Dioxide 30 (21-32) mmol/L Anion Gap 11.7 (7-13) mEq/L BUN 30 H (7-18) mg/dL Creatinine 1.78 H (0.55-1.02) mg/dL Est Cr Clr Drug Dosing TNP Estimated GFR (MDRD) 27 BUN/Creatinine Ratio 16.9 (No establ ref range) Glucose 203 H (74-99) mg/dL Calcium 9.5 (8.5-10.1) mg/dL Total Bilirubin 0.7 (0.2-1.0) mg/dL AST 46 H (15-37) U/L ALT 47 (14-59) U/L Alkaline Phosphatase 292 H (46-116) U/L Total Protein 7.0 (6.4-8.2) g/dL Albumin 3.1 L (3.4-5.0) g/dL Globulin 3.9 Albumin/Globulin Ratio 0.79 Urine Color (YELLOW) Urine Appearance (CLEAR) Urine pH (5.0-9.0) Ur Specific Moorcroft (1.005-1.030) Urine Protein (NEGATIVE) Urine Glucose (UA) (NEGATIVE) Urine Ketones (NEGATIVE) Urine Occult Blood (NEGATIVE) Urine Nitrite (NEGATIVE) Urine Bilirubin (NEGATIVE) Urine Urobilinogen (0.2-1.0) mg/dL Ur Leukocyte Esterase (NEGATIVE) Urine RBC /HPF Urine WBC (0-5/HPF) /HPF Ur Epithelial Cells (NOT SEEN) /HPF Urine Bacteria (0-FEW/HPF) /HPF //20 Range/Units 18:20 WBC (5.0-10.0) 10^3/uL RBC (4.2-5.4) 10^6/uL Hgb (12.0-16.0) g/dL Hct (37.0-47.0) % MCV (80-100) fL MCH (27.0-34.0) pg MCHC (33.0-35.0) g/dL Plt Count (150-450) 10^3/uL Neut % (Auto) (42.2-75.2) % Lymph % (Auto) (20.5-50.1) % Williams % (Auto) (2-8) % Eos % (Auto) (1.0-3.0) % Baso % (Auto) (0.0-1.0) % PT (9.0-12.0) SEC INR (0.9-1.2) Sodium (136-145) mmol/L Potassium (3.5-5.1) mmol/L Chloride (98-107) mmol/L Carbon Dioxide (21-32) mmol/L Anion Gap (7-13) mEq/L BUN (7-18) mg/dL Creatinine (0.55-1.02) mg/dL Est Cr Clr Drug Dosing Estimated GFR (MDRD) BUN/Creatinine Ratio (No establ ref range) Glucose (74-99) mg/dL Calcium (8.5-10.1) mg/dL Total Bilirubin (0.2-1.0) mg/dL AST (15-37) U/L ALT (14-59) U/L Alkaline Phosphatase (46-116) U/L Total Protein (6.4-8.2) g/dL Albumin (3.4-5.0) g/dL Globulin Albumin/Globulin Ratio Urine Color Yellow (YELLOW) Urine Appearance Slightly cloudy (CLEAR) Urine pH 6.5 (5.0-9.0) Ur Specific [place] 1.015 (1.005-1.030) Urine Protein Negative (NEGATIVE) Urine Glucose (UA) Negative (NEGATIVE) Urine Ketones Negative (NEGATIVE) Urine Occult Blood Trace-intact H (NEGATIVE) Urine Nitrite Negative (NEGATIVE) Urine Bilirubin Negative (NEGATIVE) Urine Urobilinogen 0.2 (0.2-1.0) mg/dL Ur Leukocyte Esterase Trace H (NEGATIVE) Urine RBC 0-5 /HPF Urine WBC 5-10 H (0-5/HPF) /HPF Ur Epithelial Cells Moderate H (NOT SEEN) /HPF Urine Bacteria Moderate H (0-FEW/HPF) /HPF Meds: Medications Generic Name Dose Route Start Last Admin Trade Name Freq PRN Reason Stop Dose Admin Albuterol 2.5 mg 09/17/19 20:24 Proventil Neb Soln INH Q6H PRN Wheezing Albuterol 0 gm 09/17/19 20:24 Proventil Hfa INH Q6H PRN Dyspnea Allopurinol 100 mg 09/17/19 23:00 09/17/19 23:25 Zyloprim PO 100 mg BID [facility] Administration Amitriptyline HCl 20 mg 09/17/19 20:24 Elavil PO BEDTIME PRN Insomnia Amlodipine Besylate 2.5 mg 09/18/19 09:00 Norvasc PO DAILY [facility] Bumetanide 2 mg 09/17/19 23:13 09/17/19 23:46 Bumex PO Not Given TID@0800,1200,1600 [facility] Calcitriol 0.25 mcg 09/20/19 09:00 Rocaltrol PO MoFr@0900 [facility] Carvedilol 6.25 mg 09/18/19 08:00 Coreg PO BIDMEALS [facility] Cyanocobalamin 100 mcg 09/18/19 09:00 Vitamin B12 PO DAILY [facility] Hydromorphone HCl 1 mg 09/17/19 20:14 09/18/19 06:26 Dilaudid IV 1 mg Q2H PRN Administration Pain (severe 7-10) Sodium Chloride 1,000 mls @ 75 mls/hr 09/17/19 20:15 09/17/19 22:53 Normal Saline IV 75 mls/hr ASDIRECTED [facility] Administration Insulin Human Lispro 30 unit 09/18/19 08:00 Humalog SUBCUT TIDMEALS [facility] Isosorbide Mononitrate 90 mg 09/18/19 09:00 Imdur PO DAILY [facility] Levothyroxine Sodium 150 mcg 09/18/19 06:00 09/18/19 05:47 Levothyroxine PO 150 mcg ACBREAKFAST [facility] Administration Lorazepam 1 mg 09/17/19 20:24 Ativan PO BEDTIME PRN Anxiety Meclizine HCl 25 mg 09/17/19 20:24 Antivert PO QID PRN vertigo Metolazone 2.5 mg 09/19/19 09:00 Zaroxolyn PO SuTh@0900 [facility] Non-Formulary Medication 5 mg 09/18/19 09:00 Amiloride Hcl PO DAILY [facility] Ondansetron HCl 4 mg 09/17/19 20:14 09/18/19 02:25 Zofran IVPUSH 4 mg Q6H PRN Administration Nausea/Vomiting Oxycodone HCl 5 mg 09/17/19 21:20 09/17/19 22:54 Oxycodone PO 5 mg Q4H PRN Administration Pain (moderate 4-6) Pantoprazole Sodium 40 mg 09/18/19 06:00 09/18/19 05:47 Protonix PO 40 mg ACBREAKFAST [facility] Administration Potassium Chloride 40 meq 09/18/19 12:00 Klor-Con 10 PO DAILY@1200 [facility] Sodium Chloride 10 ml 09/17/19 16:53 09/18/19 02:25 Saline Flush FLUSH 10 ml ASDIRECTED PRN Administration Keep Vein Open Discontinued Medications Generic Name Dose Route Start Last Admin Trade Name Freq PRN Reason Stop Dose Admin Acetaminophen 650 mg 09/17/19 20:14 Tylenol PO Q4H PRN Pain (Mild 1-3)/fever Amlodipine Besylate 5 mg 09/17/19 21:00 09/17/19 23:44 Norvasc PO Not Given BID [facility] Bumetanide 1 mg 09/17/19 21:00 09/17/19 23:44 Bumex PO Not Given TID [facility] Fentanyl 50 mcg 09/17/19 16:53 09/17/19 17:02 Sublimaze IVPUSH 09/17/19 16:54 50 mcg ONETIME ONE Administration Hydromorphone HCl 1 mg 09/17/19 18:03 09/17/19 18:10 Dilaudid IVPUSH 09/17/19 18:04 1 mg ONETIME ONE Administration Insulin Glargine 50 unit 09/17/19 22:50 09/17/19 23:25 Lantus SUBCUT 09/17/19 22:51 50 units ONETIME ONE Administration Ondansetron HCl 4 mg 09/17/19 17:06 09/17/19 17:09 Zofran IV 09/17/19 17:07 4 mg ONETIME ONE Administration Oxycodone/Acetaminophen 1 tab 09/17/19 20:14 Percocet 325-5 Mg PO Q4H PRN Pain (moderate 4-6) - Radiology Interpretation Free Text/Narrative:: See radiologist report - Re-Assessments/Exams Free Text/Narrative Re-Assessment/Exam: 09/17/2019 18:01 Patient case discussed with Dr. Huizar who states the patient can have a sling applied and follow up with him in the clinic next week. Patient case discussed with Dr. Neri who agreed to admit the patient for observation for pain control. 09/17/19 18:45 09/17/2019 18:30 Sling applied to the left arm Departure - Departure Time of Disposition: 19:20 Disposition: Refer to Observation Condition: Fair Clinical Impression: Hematoma Fracture of humerus, left, closed Qualifiers: Encounter type: initial encounter Humerus Location: proximal Fracture morphology: other fracture Fracture alignment: displaced Qualified Code(s): S42.292A - Other displaced fracture of upper end of left humerus, initial encounter for closed fracture - Discharge Information *PRESCRIPTION DRUG MONITORING PROGRAM REVIEWED*: No *COPY OF PRESCRIPTION DRUG MONITORING REPORT IN PATIENT JOSE: No - My Orders Last 24 Hours: My Active Orders 09/17/19 16:53 Sodium Chloride 0.9% [Saline Flush] 10 ml FLUSH ASDIRECTED PRN Peripheral IV Insertion Adult [OM.PC] Stat 09/17/19 18:20 CULTURE URINE [RM] Stat - Assessment/Plan Last 24 Hours: My Active Orders 09/17/19 16:53 Sodium Chloride 0.9% [Saline Flush] 10 ml FLUSH ASDIRECTED PRN Peripheral IV Insertion Adult [OM.PC] Stat 09/17/19 18:20 CULTURE URINE [RM] Stat
[2019-09-17] MEDS: Sodium Chloride 0.9% 10 ML Syringe FLUSH PRN (17:02)
[2019-09-17] MEDS ORDERED: Ondansetron 4 MG/2 ML SDV IV ONE (17:06)
[2019-09-17 17:19] LABS: ANION GAP 11.7 mEq/L (7-13); CHLORIDE,CL 98 mmol/L (98-107); SODIUM,NA 136 mmol/L (136-145)
--- NOTE | 2019-09-17 17:44 | CT ---
PROCEDURE INFORMATION: Exam: CT Head Without Contrast Exam date and time: 09/17/2019 5:15 PM Age: 79 years old Clinical indication: Other: Fall; Additional info: Fall, injury TECHNIQUE: Imaging protocol: Computed tomography of the head without contrast. Radiation optimization: All CT scans at this facility use at least one of these dose optimization techniques: automated exposure control; mA and/or kV adjustment per patient size (includes targeted exams where dose is matched to clinical indication); or iterative reconstruction. COMPARISON: CT Head wo Cont 12/12/2018 4:53 PM FINDINGS: Tubes, catheters and devices: Right parietal approach shunt catheter is in place with its tip in the basilar cistern on the left. Brain: No hemorrhage, mass effect or midline shift. Stable bilateral subdural fluid collections are present measuring up to 1 cm. 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 Ventricles: Normal. No ventriculomegaly. Bones/joints: Status post right craniotomy. Sinuses: Opacification of the left maxillary sinus present. Mastoid air cells: Visualized mastoid air cells are well aerated. Soft tissues: Left temporal parietal soft tissue hematoma present. IMPRESSION: No hemorrhage, mass effect or midline shift.
--- NOTE | 2019-09-17 17:45 | CR ---
PROCEDURE INFORMATION: Exam: XR Left Shoulder Exam date and time: 09/17/2019 5:24 PM Age: 79 years old Clinical indication: Other: Fall/pain; Additional info: Fall, injury TECHNIQUE: Imaging protocol: XR Left shoulder. Views: 2 or more views. COMPARISON: No relevant prior studies available. FINDINGS: Bones/joints: Impacted fracture of the proximal left humerus present with displaced fracture of the greater tuberosity. There is no evidence of joint malalignment or dislocation. Degenerative changes of the acromioclavicular joint and glenohumeral joint. Soft tissues: Moderate soft tissue swelling. Surgical clips noted within the cervical soft tissues on the left. IMPRESSION: 1. Impacted fracture of the proximal left humerus present with displaced fracture of the greater tuberosity. 2. No evidence of acute dislocation. 3. Degenerative changes of the acromioclavicular joint and glenohumeral joint.
--- NOTE | 2019-09-17 17:49 | CT ---
PROCEDURE INFORMATION: Exam: CT Cervical Spine Without Contrast Exam date and time: 09/17/2019 5:15 PM Age: 79 years old Clinical indication: Other: Fall; Additional info: Fall, injury TECHNIQUE: Imaging protocol: Computed tomography images of the cervical spine without contrast. Radiation optimization: All CT scans at this facility use at least one of these dose optimization techniques: automated exposure control; mA and/or kV adjustment per patient size (includes targeted exams where dose is matched to clinical indication); or iterative reconstruction. COMPARISON: CT Cervical Spine wo Cont 12/12/2018 4:53 PM FINDINGS: Vertebrae: No evidence of acute cervical fracture. The facet joints demonstrate mild degenerative hypertrophy and sclerosis. Discs/Spinal canal/Neural foramina: The cervical spine demonstrates mild degenerative changes at multiple levels. Disc space narrowing noted C5-C6 and C6-C7. Soft tissues: Surgical clips noted within the anterior cervical soft tissues on the left. Sinuses: Opacification of the left maxillary sinus is present. Lungs: Lung apices are normal. Vasculature: The vasculature demonstrates diffuse mild atherosclerotic calcification. Other findings: The heart demonstrates moderate diffuse enlargement. IMPRESSION: 1. No evidence of acute cervical fracture. 2. The cervical spine demonstrates mild degenerative changes at multiple levels.
[2019-09-17] MEDS ORDERED: HYDROmorphone 1 MG/ML Syringe IVPUSH ONE (18:03)
[2019-09-17] MEDS ORDERED: Acetaminophen 325 MG Tab PO PRN (20:14)
[2019-09-17] MEDS ORDERED: Acetaminophen/oxyCODONE 325-5 MG Tab PO PRN (20:14)
[2019-09-17] MEDS ORDERED: Sodium Chloride 0.9% 1,000 ML IV SCH (20:15)
[2019-09-17] MEDS ORDERED: Albuterol 6.7 GM Inhaler INH PRN (20:24)
[2019-09-17] MEDS ORDERED: Albuterol 0.083% 2.5 MG/3 ML Neb Soln INH PRN (20:24)
[2019-09-17] MEDS ORDERED: LORazepam 1 MG Tab PO PRN (20:24)
[2019-09-17] MEDS ORDERED: Meclizine 12.5 MG Tab PO PRN (20:24)
[2019-09-17] MEDS ORDERED: Amitriptyline 10 MG Tab PO PRN (20:24)
[2019-09-17] MEDS: HYDROmorphone 1 MG/ML Syringe IV PRN ×2 (20:51→22:53)
[2019-09-17] MEDS ORDERED: amLODIPine 5 MG Tab PO SCH (21:00)
[2019-09-17] MEDS ORDERED: Bumetanide 1 MG Tab PO SCH (21:00)
[2019-09-17] MEDS ORDERED: Insulin Glarg,Human.Rec.Analog 100 Unit/ML SUBCUT ONE (22:50)
[2019-09-17] MEDS: oxyCODONE 5 MG Tab PO PRN (22:54)
[2019-09-17] MEDS: Allopurinol 100 MG Tab PO SCH (23:25)
[2019-09-17] MEDS: Bumetanide 1 MG Tab PO SCH (23:46)
[2019-09-18] MEDS: Ondansetron 4 MG/2 ML SDV IVPUSH PRN ×3 (02:25→15:02)
[2019-09-18] MEDS: Sodium Chloride 0.9% 10 ML Syringe FLUSH PRN ×3 (02:25→21:55)
[2019-09-18] MEDS: HYDROmorphone 1 MG/ML Syringe IV PRN ×3 (02:28→08:45)
[2019-09-18] MEDS: Pantoprazole 40 MG Tab.CR PO SCH (05:47)
[2019-09-18] MEDS: Levothyroxine 150 MCG Tab PO SCH (05:47)
[2019-09-18 07:07] LABS: ANION GAP 11.8 mEq/L (7-13)
[2019-09-18] MEDS: oxyCODONE 5 MG Tab PO PRN ×2 (07:47→16:34)
[2019-09-18] MEDS: Insulin Lispro 100 Units/ML 3 ML Vial SUBCUT SCH ×3 (08:40→17:16)
[2019-09-18] MEDS: Isosorbide Mononitrate 30 MG Tab.ER PO SCH (08:41)
[2019-09-18] MEDS: amLODIPine 5 MG Tab PO SCH (08:42)
[2019-09-18] MEDS: Carvedilol 6.25 MG Tab PO SCH ×2 (08:43→17:17)
[2019-09-18] MEDS: Allopurinol 100 MG Tab PO SCH ×2 (08:43→21:59)
[2019-09-18] MEDS: Bumetanide 1 MG Tab PO SCH ×3 (08:44→16:34)
[2019-09-18] MEDS: Cyanocobalamin (Vitamin B12) 100 MCG Tab PO SCH (08:45)
--- NOTE | 2019-09-18 10:56 | PCM.HP ---
H&P History of Present Illness - General Date of Service: 09/17/19 Admit Problem/Dx: Admission Diagnosis/Problem Admission Diagnosis/Problem Fracture of humerus, proximal, left, closed Source of Information: Patient - History of Present Illness Initial Comments - Free Text/Narative: Is a 79-year-old female with multiple medical problems. The patient was going to the clinic to have her INR checked, tripped on the rug and fell. She fell onto her left shoulder and thereafter began to have severe pain. She did not lose consciousness. She rates intensity of her pain is 10 on a scale of 0-10. Was given intravenous fentanyl in the emergency room and that did not help. X-ray showed that the patient sustained impacted humeral fracture. Left shoulder/arm Pain Score (Numeric/FACES): 10 - Related Data Allergies/Adverse Reactions: Allergies Allergy/AdvReac Type Severity Reaction Status Date / Time codeine Allergy Severe Rash Verified 09/17/19 20:26 indomethacin [From Indocin] Allergy Severe Other Verified 09/17/19 20:26 indomethacin sodium Allergy Severe Headache Verified 09/17/19 20:26 [From Indocin] Penicillins Allergy Severe Hives Verified 09/17/19 20:26 pentazocine [From Talwin] Allergy Severe Delusions Verified 09/17/19 20:26 Sulfa (Sulfonamide Allergy Severe Hives Verified 09/17/19 20:26 Antibiotics) sulfamethoxazole Allergy Severe Hives Verified 09/17/19 20:26 [From Bactrim] trimethoprim [From Bactrim] Allergy Severe Hives Verified 09/17/19 20:26 ampicillin Allergy Intermediate Hives Verified 09/17/19 20:26 atorvastatin calcium Allergy Mild Muscle Verified 09/17/19 20:26 [From Lipitor] Aches duloxetine HCl Allergy Mild Nausea Verified 09/17/19 20:26 [From Cymbalta] lactose Allergy Mild Diarrhea Verified 09/17/19 20:26 lisinopril Allergy Mild Cough Verified 09/17/19 20:26 metoprolol Allergy Mild Fatigue Verified 09/17/19 20:26 pravastatin Allergy Mild Muscle Verified 09/17/19 20:26 Aches simvastatin Allergy Mild Muscle Verified 09/17/19 20:26 Aches spironolactone Allergy Mild Headache Verified 09/17/19 20:26 tuberculin, purified protein Allergy Mild Rash Verified 09/17/19 20:26 deriva [tuberculin,purif.prot.deriv.] Iodinated Contrast Media Allergy Unknown Other Verified 09/17/19 20:26 [Iodinated Contrast Media - IV Dye] clindamycin Allergy Abdominal Verified 09/17/19 20:26 Pain clonazepam [From Klonopin] Allergy Other Verified 09/17/19 20:26 hydrochlorothiazide Allergy Lethargy Verified 09/17/19 20:26 tetanus toxoid, adsorbed Allergy Other Verified 09/17/19 20:26 zoster vaccine live Allergy Other Verified 09/17/19 20:26 oxycodone [Oxycodone] AdvReac Mild Other Verified 09/18/19 03:19 flannel Allergy Burning Uncoded 05/18/19 20:17 Home Medications: Home Meds LORazepam [Ativan] 1 mg PO BEDTIME PRN 11/25/13 [History] Levothyroxine Sodium [Synthroid] 150 mcg PO ACBREAKFAST 11/25/13 [History] Nitroglycerin [Nitrostat] 0.4 mg SL Q5M PRN MDD 3 11/25/13 [History] Psyllium [Metamucil SF] 1 tbsp PO DAILY PRN 11/25/13 [History] Albuterol [Proventil HFA] 2 inh INH Q6H PRN 03/28/15 [History] Potassium Chloride 50 meq PO BID 03/28/15 [History] Carvedilol [Coreg] 6.25 mg PO BIDMEALS 03/27/16 [History] Cyanocobalamin (Vitamin B12) [Vitamin B12] 100 mcg PO DAILY 03/27/16 [History] Hypromellose/PF [Retaine Hpmc 0.3% Eye Drops] 1 drop EYEBOTH Q4H PRN 03/27/16 [History] Meclizine [Antivert] 25 mg PO QID PRN 03/27/16 [History] Pantoprazole Sodium [Protonix] 40 mg PO DAILY 03/27/16 [History] Docusate Sodium 100 mg PO BID 08/30/16 [History] allopurinoL [Zyloprim] 100 mg PO BID 05/02/17 [History] traMADol [Ultram] 50 mg PO DAILY PRN 05/02/17 [History] Amitriptyline [Elavil] 20 mg PO BEDTIME 04/10/18 [History] Cinnamon Bark [Cinnamon] 1,000 mg PO DAILY 04/10/18 [History] Dextrose Tabs 16 g PO ASDIRECTED PRN 04/10/18 [History] Ondansetron [Zofran] 4 mg PO Q6H PRN 04/10/18 [History] Pantothenic Acid 500 mg PO BEDTIME 04/10/18 [History] aMILoride HCl [Amiloride HCl] 5 mg PO DAILY 04/10/18 [History] metOLazone [Metolazone] 2.5 mg PO .TWICEWEEKLY 04/10/18 [History] Insulin Lispro [HumaLOG] 30 unit SUBCUT TIDMEALS vial 04/22/18 [Rx] amLODIPine Besylate [Amlodipine Besylate] 2.5 mg PO DAILY 12/12/18 [History] calcitrioL [Calcitriol] 0.25 mcg PO ASDIRECTED 12/12/18 [History] Aspirin 81 mg PO DAILY 09/17/19 [History] Bumetanide [Bumex] 2 mg PO TID 09/17/19 [History] Cholecalciferol (Vitamin D3) [Vitamin D3] 75 mcg PO DAILY 09/17/19 [History] Diclofenac Sodium [Voltaren 1% Gel] 2 gm TOP QID PRN 09/17/19 [History] Isosorbide Mononitrate [Isosorbide Mononitrate ER] 90 mg PO DAILY 09/17/19 [History] Multivitamin [Multivitamins] 1 cap PO DAILY 09/17/19 [History] Potassium Chloride 40 meq PO 1200 09/17/19 [History] Rifaximin [Xifaxan] 1 tab PO BID 09/17/19 [History] Warfarin [Coumadin] 3.75 mg PO DAILY 09/17/19 [History] Albuterol [Proventil Neb Soln] 2.5 mg NEB Q6HRRT PRN 09/18/19 [History] Insulin Detemir [Levemir] 50 unit SQ BEDTIME 09/18/19 [History] Insulin Detemir [Levemir] 70 unit SUBCUT DAILY 09/18/19 [History] Past Medical History HEENT History: Reports: Cataract, Impaired Vision, Other (See Below) Other HEENT History: HEARING LOSS TOTAL-RIGHT PARTIAL-LEFT, WEARS BILAT HEARING AIDES Cardiovascular History: Reports: Afib, Blood Clots/VTE/DVT, CAD, Heart Failure, Hypertension, [place], Stents, Other (See Below) Other Cardiovascular History: CAROTID ARTERY DISEASE. HEART FAILURE WITH PRESERVED EJECTION FRACTION. HYPERTENSIVE HEART DISEASE. TIA. 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 SUBDURAL HEMATOMA. lorazepam controls headaches from shunt Psychiatric History: Reports: Depression Endocrine/Metabolic History: Reports: Diabetes, Type II, Hypothyroidism, Obesity/BMI 30+, Osteoporosis, Vitamin D Deficiency Hematologic History: Reports: Blood Transfusion(s) Immunologic History: Reports: None Oncologic (Cancer) History: Reports: Malignant Melanoma Dermatologic History: Reports: None - Infectious Disease History Infectious Disease History: Reports: Chicken Pox, Measles, Mumps, Shingles, Other (See Below) Other Infectious Disease History: EXPOSED TO SOMETHING IN [place] IN LATE 70'S THAT AFFECTED LUNGS, CANT RMEMEBER - Past Surgical History Head Surgeries/Procedures: Reports: Shunt HEENT Surgical History: Reports: Adenoidectomy, Cataract Surgery, Tonsillectomy Other HEENT Surgeries/Procedures: PE TUBE PLACEMENT/REMOVAL RIGHT EAR. BILAT CATARACT EXTRACTION WITH LENS IMPLANTS Cardiovascular Surgical History: Reports: Carotid Endarterectomy, Coronary Artery Stent Other Cardiovascular Surgeries/Procedures: IVC FILTER PLACEMENT & REMOVAL Respiratory Surgical History: Reports: None GI Surgical History: Reports: Appendectomy, Colon, Colonoscopy, EGD, Polypectomy, Other (See Below) Other GI Surgeries/Procedures: large colon mostly resected - annotated redundant bowel Female Surgical History: Reports: Breast Biopsy, Cystectomy, Hysterectomy, Salpingo-Oophorectomy, Other (See Below) Other Female Surgeries/Procedures: breast cyst Endocrine Surgical History: Reports: None Neurological Surgical History: Reports: Other (See Below) Other Neurological Surgeries/Procedures: spinal tap and [employer] shunt (2008) Musculoskeletal Surgical History: Reports: None Oncologic Surgical History: Reports: Biopsy of Breast Dermatological Surgical History: Reports: None Social & Family History - Family History Family Medical History: Noncontributory - Tobacco Use Smoking Status *Q: Former Smoker Years of Tobacco use: 10 Packs/Tins Daily: 0.5 Used Tobacco, but Quit: Yes Month/Year Tobacco Last Used: 1982 Second Hand Smoke Exposure: No - Caffeine Use Caffeine Use: Reports: Coffee Caffeine Use Comment: 1 CUP COFFEE. 2 CUPS TEA - Recreational Drug Use Recreational Drug Use: No - Living Situation & Occupation Living situation: Reports: with Family Occupation: Retired H&P Review of Systems - Review of Systems: Review Of Systems: See Below General: Reports: Weakness HEENT: Reports: No Symptoms Pulmonary: Reports: Shortness of Breath Musculoskeletal: Reports: Arm Pain, Joint Pain Psychiatric: Reports: Anxiety Exam - Exam Exam: See Below - Vital Signs Vital Signs: Last Vital Signs Temp 36.3 C 09/18/19 08:00 Pulse 81 09/18/19 08:43 Resp 18 09/18/19 08:00 BP 143/74 H 09/18/19 08:43 Pulse Ox 92 L 09/18/19 08:00 Weight: 108.409 kg - Exam General: Alert, Oriented, Cooperative Neck: Supple, Trachea Midline, 2 Lungs: Clear to Auscultation, Normal Respiratory Effort Cardiovascular: Regular Rate, Regular Rhythm GI/Abdominal Exam: Normal Bowel Sounds, Soft, Non-Tender, No Organomegaly, No Distention, No Abnormal Bruit, No Mass, Pelvis Stable Extremities: Arm Pain, Limited Range of Motion (Limited range of motion left shoulder. Intractable pain) - Patient Data Lab Results Last 24 hrs: Laboratory Results - last 24 hr 09/17/19 09/17/19 09/17/19 Range/Units 16:50 16:50 16:50 WBC 10.0 (5.0-10.0) 10^3/uL RBC 4.34 (4.2-5.4) 10^6/uL Hgb 13.8 D (12.0-16.0) g/dL Hct 42.0 (37.0-47.0) % MCV 96.8 D (80-100) fL MCH 31.8 (27.0-34.0) pg MCHC 32.9 L (33.0-35.0) g/dL Plt Count 171 (150-450) 10^3/uL Neut % (Auto) 65.0 (42.2-75.2) % Lymph % (Auto) 12.2 L (20.5-50.1) % [place] % (Auto) 14.0 H (2-8) % Eos % (Auto) 8.3 H (1.0-3.0) % Baso % (Auto) 0.5 (0.0-1.0) % PT 40.9 H (9.0-12.0) SEC INR 4.4 H (0.9-1.2) Sodium 136 (136-145) mmol/L Potassium 3.7 D (3.5-5.1) mmol/L Chloride 98 (98-107) mmol/L Carbon Dioxide 30 (21-32) mmol/L Anion Gap 11.7 (7-13) mEq/L BUN 30 H (7-18) mg/dL Creatinine 1.78 H (0.55-1.02) mg/dL Est Cr Clr Drug Dosing TNP Estimated GFR (MDRD) 27 BUN/Creatinine Ratio 16.9 (No establ ref range) Glucose 203 H (74-99) mg/dL POC Glucose (83-110) mg/dl Calcium 9.5 (8.5-10.1) mg/dL Total Bilirubin 0.7 (0.2-1.0) mg/dL AST 46 H (15-37) U/L ALT 47 (14-59) U/L Alkaline Phosphatase 292 H (46-116) U/L Total Protein 7.0 (6.4-8.2) g/dL Albumin 3.1 L (3.4-5.0) g/dL Globulin 3.9 Albumin/Globulin Ratio 0.79 Urine Color (YELLOW) Urine Appearance (CLEAR) Urine pH (5.0-9.0) Ur Specific [place] (1.005-1.030) Urine Protein (NEGATIVE) Urine Glucose (UA) (NEGATIVE) Urine Ketones (NEGATIVE) Urine Occult Blood (NEGATIVE) Urine Nitrite (NEGATIVE) Urine Bilirubin (NEGATIVE) Urine Urobilinogen (0.2-1.0) mg/dL Ur Leukocyte Esterase (NEGATIVE) Urine RBC /HPF Urine WBC (0-5/HPF) /HPF Ur Epithelial Cells (NOT SEEN) /HPF Urine Bacteria (0-FEW/HPF) /HPF 09/17/19 09/17/19 09/18/19 Range/Units 18:20 21:56 06:30 WBC 12.9 H (5.0-10.0) 10^3/uL RBC 4.19 L (4.2-5.4) 10^6/uL Hgb 13.0 (12.0-16.0) g/dL Hct 41.7 (37.0-47.0) % MCV 99.5 (80-100) fL MCH 31.0 (27.0-34.0) pg MCHC 31.2 L (33.0-35.0) g/dL Plt Count 187 (150-450) 10^3/uL Neut % (Auto) (42.2-75.2) % Lymph % (Auto) (20.5-50.1) % [place] % (Auto) (2-8) % Eos % (Auto) (1.0-3.0) % Baso % (Auto) (0.0-1.0) % PT (9.0-12.0) SEC INR (0.9-1.2) Sodium (136-145) mmol/L Potassium (3.5-5.1) mmol/L Chloride (98-107) mmol/L Carbon Dioxide (21-32) mmol/L Anion Gap (7-13) mEq/L BUN (7-18) mg/dL Creatinine (0.55-1.02) mg/dL Est Cr Clr Drug Dosing Estimated GFR (MDRD) BUN/Creatinine Ratio (No establ ref range) Glucose (74-99) mg/dL POC Glucose 164 H (83-110) mg/dl Calcium (8.5-10.1) mg/dL Total Bilirubin (0.2-1.0) mg/dL AST (15-37) U/L ALT (14-59) U/L Alkaline Phosphatase (46-116) U/L Total Protein (6.4-8.2) g/dL Albumin (3.4-5.0) g/dL Globulin Albumin/Globulin Ratio Urine Color Yellow (YELLOW) Urine Appearance Slightly cloudy (CLEAR) Urine pH 6.5 (5.0-9.0) Ur Specific [place] 1.015 (1.005-1.030) Urine Protein Negative (NEGATIVE) Urine Glucose (UA) Negative (NEGATIVE) Urine Ketones Negative (NEGATIVE) Urine Occult Blood Trace-intact H (NEGATIVE) Urine Nitrite Negative (NEGATIVE) Urine Bilirubin Negative (NEGATIVE) Urine Urobilinogen 0.2 (0.2-1.0) mg/dL Ur Leukocyte Esterase Trace H (NEGATIVE) Urine RBC 0-5 /HPF Urine WBC 5-10 H (0-5/HPF) /HPF Ur Epithelial Cells Moderate H (NOT SEEN) /HPF Urine Bacteria Moderate H (0-FEW/HPF) /HPF 09/18/19 09/18/19 09/18/19 Range/Units 06:30 06:30 08:02 WBC (5.0-10.0) 10^3/uL RBC (4.2-5.4) 10^6/uL Hgb (12.0-16.0) g/dL Hct (37.0-47.0) % MCV (80-100) fL MCH (27.0-34.0) pg MCHC (33.0-35.0) g/dL Plt Count (150-450) 10^3/uL Neut % (Auto) (42.2-75.2) % Lymph % (Auto) (20.5-50.1) % [place] % (Auto) (2-8) % Eos % (Auto) (1.0-3.0) % Baso % (Auto) (0.0-1.0) % PT 37.7 H (9.0-12.0) SEC INR 4.0 H (0.9-1.2) Sodium 136 (136-145) mmol/L Potassium 3.8 (3.5-5.1) mmol/L Chloride 99 (98-107) mmol/L Carbon Dioxide 29 (21-32) mmol/L Anion Gap 11.8 (7-13) mEq/L BUN 30 H (7-18) mg/dL Creatinine 1.69 H (0.55-1.02) mg/dL Est Cr Clr Drug Dosing 21.35 Estimated GFR (MDRD) 29 BUN/Creatinine Ratio (No establ ref range) Glucose 204 H (74-99) mg/dL POC Glucose 230 H (83-110) mg/dl Calcium 8.8 (8.5-10.1) mg/dL Total Bilirubin (0.2-1.0) mg/dL AST (15-37) U/L ALT (14-59) U/L Alkaline Phosphatase (46-116) U/L Total Protein (6.4-8.2) g/dL Albumin (3.4-5.0) g/dL Globulin Albumin/Globulin Ratio Urine Color (YELLOW) Urine Appearance (CLEAR) Urine pH (5.0-9.0) Ur Specific [place] (1.005-1.030) Urine Protein (NEGATIVE) Urine Glucose (UA) (NEGATIVE) Urine Ketones (NEGATIVE) Urine Occult Blood (NEGATIVE) Urine Nitrite (NEGATIVE) Urine Bilirubin (NEGATIVE) Urine Urobilinogen (0.2-1.0) mg/dL Ur Leukocyte Esterase (NEGATIVE) Urine RBC /HPF Urine WBC (0-5/HPF) /HPF Ur Epithelial Cells (NOT SEEN) /HPF Urine Bacteria (0-FEW/HPF) /HPF Result Diagrams: 09/18/19 06:30 09/18/19 06:30 Problem List Initiated/Reviewed/Updated: Yes Orders Last 24hrs: Active Orders 24 hr Category Date Time Status Admission Diagnosis [ADT] Stat ADT 09/17/19 19:07 Ordered Admission Status [Patient Status] [ADT] Routine ADT 09/17/19 19:07 Active Patient Status [ADT] Routine ADT 09/17/19 20:14 Active Blood Glucose Check, Bedside [RC] QIDACANDBED Care 09/17/19 23:47 Active Oxygen Therapy [RC] PRN Care 09/17/19 20:14 Active RT Aerosol Therapy [RC] ASDIRECTED Care 09/17/19 20:27 Active RT Post Treatment Assessment [RC] Click to Edit Care 09/17/19 20:27 Active RT Pre-Treatment Assessment [RC] Click to Edit Care 09/17/19 20:27 Active Up ad Faith [RC] ASDIRECTED Care 09/17/19 20:14 Active VTE/DVT Education [RC] PER UNIT ROUTINE Care 09/17/19 20:14 Active Vital Signs [RC] 04,08,12,16,20,00 Care 09/17/19 20:14 Active Regular Diet [DIET] Diet 09/17/19 Dinner Active CULTURE URINE [RM] Stat Lab 09/17/19 18:20 Received Albuterol [Proventil HFA] Med 09/17/19 20:24 Active 0 gm INH Q6H PRN Albuterol [Proventil Neb Soln] Med 09/17/19 20:24 Active 2.5 mg INH Q6H PRN Amitriptyline [Elavil] Med 09/17/19 20:24 Active 20 mg PO BEDTIME PRN Bumetanide [Bumex] Med 09/17/19 23:13 Active 2 mg PO TID@0800,1200,1600 Cyanocobalamin (Vitamin B12) [Vitamin B12] Med 09/18/19 09:00 Active 100 mcg PO DAILY HYDROmorphone [Dilaudid] Med 09/17/19 20:14 Active 1 mg IV Q2H PRN Insulin Lispro [HumaLOG] Med 09/18/19 08:00 Active 30 unit SUBCUT TIDMEALS Isosorbide Mononitrate [Imdur] Med 09/18/19 09:00 Active 90 mg PO DAILY LORazepam [Ativan] Med 09/17/19 20:24 Active 1 mg PO BEDTIME PRN Levothyroxine Med 09/18/19 06:00 Active 150 mcg PO ACBREAKFAST Meclizine [Antivert] Med 09/17/19 20:24 Active 25 mg PO QID PRN Ondansetron [Zofran] Med 09/17/19 20:14 Active 4 mg IVPUSH Q6H PRN Pantoprazole [ProTONIX] Med 09/18/19 06:00 Active 40 mg PO ACBREAKFAST Potassium Chloride [Klor-Con 10] Med 09/18/19 12:00 Active 40 meq PO DAILY@1200 Sodium Chloride 0.9% [Normal Saline] 1,000 ml Med 09/17/19 20:15 Active IV ASDIRECTED Sodium Chloride 0.9% [Saline Flush] Med 09/17/19 16:53 Active 10 ml FLUSH ASDIRECTED PRN aMILoride HCl Med 09/18/19 09:00 Pending 5 mg PO DAILY allopurinoL [Zyloprim] Med 09/17/19 23:00 Active 100 mg PO BID amLODIPine [Norvasc] Med 09/18/19 09:00 Active 2.5 mg PO DAILY calcitrioL [Rocaltrol] Med 09/20/19 09:00 Active 0.25 mcg PO MoFr@0900 carvediloL [Coreg] Med 09/18/19 08:00 Active 6.25 mg PO BIDMEALS metOLazone [Zaroxolyn] Med 09/19/19 09:00 Active 2.5 mg PO SuTh@0900 oxyCODONE Med 09/17/19 21:20 Active 5 mg PO Q4H PRN Peripheral IV Insertion Adult [OM.PC] Stat Ot 09/17/19 16:53 Ordered Resuscitation Status Routine Resus Stat 09/17/19 20:14 Ordered Medication Orders Albuterol (Proventil Neb Soln) 2.5 mg INH Q6H PRN PRN Reason: Wheezing Albuterol (Proventil Hfa) 0 gm INH Q6H PRN PRN Reason: Dyspnea Allopurinol (Zyloprim) 100 mg PO BID [facility] Last Admin: 09/18/19 08:43 Dose: 100 mg Documented by: Admin: 09/17/19 23:25 Dose: 100 mg Documented by: JOSE Amitriptyline HCl (Elavil) 20 mg PO BEDTIME PRN PRN Reason: Insomnia Amlodipine Besylate (Norvasc) 2.5 mg PO DAILY [facility] Last Admin: 09/18/19 08:42 Dose: 2.5 mg Documented by: DAVID Bumetanide (Bumex) 2 mg PO TID@0800,1200,1600 [facility] Last Admin: 09/18/19 08:44 Dose: 2 mg Documented by: Admin: 09/17/19 23:46 Dose: Not Given Documented by: JOSE Calcitriol (Rocaltrol) 0.25 mcg PO MoFr@0900 [facility] Carvedilol (Coreg) 6.25 mg PO BIDMEALS [facility] Last Admin: 09/18/19 08:43 Dose: 6.25 mg Documented by: DAVID Cyanocobalamin (Vitamin B12) 100 mcg PO DAILY [facility] Last Admin: 09/18/19 08:45 Dose: 100 mcg Documented by: DAVID Hydromorphone HCl (Dilaudid) 1 mg IV Q2H PRN PRN Reason: Pain (severe 7-10) Last Admin: 09/18/19 08:45 Dose: 1 mg Documented by: Admin: 09/18/19 06:26 Dose: 1 mg Documented by: Admin: 09/18/19 02:28 Dose: 1 mg Documented by: Admin: 09/17/19 22:53 Dose: 1 mg Documented by: Admin: 09/17/19 20:51 Dose: 1 mg Documented by: JOSE Sodium Chloride (Normal Saline) 1,000 mls @ 75 mls/hr IV ASDIRECTED [facility] Last Admin: 09/17/19 22:53 Dose: 75 mls/hr Documented by: JOSE Insulin Human Lispro (Humalog) 30 unit SUBCUT TIDMEALS [facility] Last Admin: 09/18/19 08:40 Dose: 30 units Documented by: DAVID Isosorbide Mononitrate (Imdur) 90 mg PO DAILY [facility] Last Admin: 09/18/19 08:41 Dose: 90 mg Documented by: DAVID Levothyroxine Sodium (Levothyroxine) 150 mcg PO ACBREAKFAST [facility] Last Admin: 09/18/19 05:47 Dose: 150 mcg Documented by: JOSE Lorazepam (Ativan) 1 mg PO BEDTIME PRN PRN Reason: Anxiety Meclizine HCl (Antivert) 25 mg PO QID PRN PRN Reason: vertigo Metolazone (Zaroxolyn) 2.5 mg PO SuTh@0900 [facility] Non-Formulary Medication (Amiloride Hcl) 5 mg PO DAILY [facility] Ondansetron HCl (Zofran) 4 mg IVPUSH Q6H PRN PRN Reason: Nausea/Vomiting Last Admin: 09/18/19 09:22 Dose: 4 mg Documented by: Admin: 09/18/19 02:25 Dose: 4 mg Documented by: JOSE Oxycodone HCl (Oxycodone) 5 mg PO Q4H PRN PRN Reason: Pain (moderate 4-6) Last Admin: 09/18/19 07:47 Dose: 5 mg Documented by: Admin: 09/17/19 22:54 Dose: 5 mg Documented by: JOSE Pantoprazole Sodium (Protonix) 40 mg PO ACBREAKFAST [facility] Last Admin: 09/18/19 05:47 Dose: 40 mg Documented by: JOSE Potassium Chloride (Klor-Con 10) 40 meq PO DAILY@1200 [facility] Sodium Chloride (Saline Flush) 10 ml FLUSH ASDIRECTED PRN PRN Reason: Keep Vein Open Last Admin: 09/18/19 02:25 Dose: 10 ml Documented by: Admin: 09/17/19 17:02 Dose: 10 ml Documented by: LINDEN Assessment/Plan Comment:: Assessment/plan #. Impacted left humeral fracture Patient has excruciating pain at this point #. DVT/atrial fibrillation/chronic anticoagulation On Coumadin and INR is supratherapeutic #. Coronary artery disease Status post previous stent #. Diabetes mellitus type 2 On insulin therapy #. Chronic kidney disease Serum creatinine is at baseline #. Hypertension Intermittently elevated Pain is likely a factor Plan: Admit patient to medical floor Intravenous Dilaudid Start patient on Percocet Restart insulin Hold Coumadin obtain PT and INR Emergency room physician assistant credit manager informed me that the case has been discussed with the orthopedic surgeon in [place]. They recommended conservative management.
--- NOTE | 2019-09-18 11:01 | PCM.PN ---
- General Info Date of Service: 09/18/19 Subjective Update: Is a 79-year-old female with multiple medical problems. The patient was going to the clinic to have her INR checked, tripped on the rug and fell. She fell onto her left shoulder and thereafter began to have severe pain. She did not lose consciousness. Today the patient is still complaining of severe pain involving the left shoulder. Tells me that Dilaudid has not been helpful. - Review of Systems General: Reports: Weakness, Chills Pulmonary: Reports: No Symptoms Cardiovascular: Reports: No Symptoms Gastrointestinal: Reports: Nausea, Vomiting Musculoskeletal: Reports: Shoulder Pain, Arm Pain Skin: Reports: No Symptoms - Patient Data Vitals - Most Recent: Last Vital Signs Temp 36.3 C 09/18/19 08:00 Pulse 81 09/18/19 08:43 Resp 18 09/18/19 08:00 BP 143/74 H 09/18/19 08:43 Pulse Ox 92 L 09/18/19 08:00 Weight - Most Recent: 108.409 kg I&O - Last 24 Hours: Intake & Output 09/17/19 09/18/19 09/18/19 22:59 06:59 14:59 Intake Total 901 620 Output Total 900 400 Balance 1 220 Lab Results Last 24 Hours: Laboratory Results - last 24 hr 09/17/19 09/17/19 09/17/19 Range/Units 16:50 16:50 16:50 WBC 10.0 (5.0-10.0) 10^3/uL RBC 4.34 (4.2-5.4) 10^6/uL Hgb 13.8 D (12.0-16.0) g/dL Hct 42.0 (37.0-47.0) % MCV 96.8 D (80-100) fL MCH 31.8 (27.0-34.0) pg MCHC 32.9 L (33.0-35.0) g/dL Plt Count 171 (150-450) 10^3/uL Neut % (Auto) 65.0 (42.2-75.2) % Lymph % (Auto) 12.2 L (20.5-50.1) % [place] % (Auto) 14.0 H (2-8) % Eos % (Auto) 8.3 H (1.0-3.0) % Baso % (Auto) 0.5 (0.0-1.0) % PT 40.9 H (9.0-12.0) SEC INR 4.4 H (0.9-1.2) Sodium 136 (136-145) mmol/L Potassium 3.7 D (3.5-5.1) mmol/L Chloride 98 (98-107) mmol/L Carbon Dioxide 30 (21-32) mmol/L Anion Gap 11.7 (7-13) mEq/L BUN 30 H (7-18) mg/dL Creatinine 1.78 H (0.55-1.02) mg/dL Est Cr Clr Drug Dosing TNP Estimated GFR (MDRD) 27 BUN/Creatinine Ratio 16.9 (No establ ref range) Glucose 203 H (74-99) mg/dL POC Glucose (83-110) mg/dl Calcium 9.5 (8.5-10.1) mg/dL Total Bilirubin 0.7 (0.2-1.0) mg/dL AST 46 H (15-37) U/L ALT 47 (14-59) U/L Alkaline Phosphatase 292 H (46-116) U/L Total Protein 7.0 (6.4-8.2) g/dL Albumin 3.1 L (3.4-5.0) g/dL Globulin 3.9 Albumin/Globulin Ratio 0.79 Urine Color (YELLOW) Urine Appearance (CLEAR) Urine pH (5.0-9.0) Ur Specific [place] (1.005-1.030) Urine Protein (NEGATIVE) Urine Glucose (UA) (NEGATIVE) Urine Ketones (NEGATIVE) Urine Occult Blood (NEGATIVE) Urine Nitrite (NEGATIVE) Urine Bilirubin (NEGATIVE) Urine Urobilinogen (0.2-1.0) mg/dL Ur Leukocyte Esterase (NEGATIVE) Urine RBC /HPF Urine WBC (0-5/HPF) /HPF Ur Epithelial Cells (NOT SEEN) /HPF Urine Bacteria (0-FEW/HPF) /HPF 09/17/19 09/17/19 09/18/19 Range/Units 18:20 21:56 06:30 WBC 12.9 H (5.0-10.0) 10^3/uL RBC 4.19 L (4.2-5.4) 10^6/uL Hgb 13.0 (12.0-16.0) g/dL Hct 41.7 (37.0-47.0) % MCV 99.5 (80-100) fL MCH 31.0 (27.0-34.0) pg MCHC 31.2 L (33.0-35.0) g/dL Plt Count 187 (150-450) 10^3/uL Neut % (Auto) (42.2-75.2) % Lymph % (Auto) (20.5-50.1) % [place] % (Auto) (2-8) % Eos % (Auto) (1.0-3.0) % Baso % (Auto) (0.0-1.0) % PT (9.0-12.0) SEC INR (0.9-1.2) Sodium (136-145) mmol/L Potassium (3.5-5.1) mmol/L Chloride (98-107) mmol/L Carbon Dioxide (21-32) mmol/L Anion Gap (7-13) mEq/L BUN (7-18) mg/dL Creatinine (0.55-1.02) mg/dL Est Cr Clr Drug Dosing Estimated GFR (MDRD) BUN/Creatinine Ratio (No establ ref range) Glucose (74-99) mg/dL POC Glucose 164 H (83-110) mg/dl Calcium (8.5-10.1) mg/dL Total Bilirubin (0.2-1.0) mg/dL AST (15-37) U/L ALT (14-59) U/L Alkaline Phosphatase (46-116) U/L Total Protein (6.4-8.2) g/dL Albumin (3.4-5.0) g/dL Globulin Albumin/Globulin Ratio Urine Color Yellow (YELLOW) Urine Appearance Slightly cloudy (CLEAR) Urine pH 6.5 (5.0-9.0) Ur Specific [place] 1.015 (1.005-1.030) Urine Protein Negative (NEGATIVE) Urine Glucose (UA) Negative (NEGATIVE) Urine Ketones Negative (NEGATIVE) Urine Occult Blood Trace-intact H (NEGATIVE) Urine Nitrite Negative (NEGATIVE) Urine Bilirubin Negative (NEGATIVE) Urine Urobilinogen 0.2 (0.2-1.0) mg/dL Ur Leukocyte Esterase Trace H (NEGATIVE) Urine RBC 0-5 /HPF Urine WBC 5-10 H (0-5/HPF) /HPF Ur Epithelial Cells Moderate H (NOT SEEN) /HPF Urine Bacteria Moderate H (0-FEW/HPF) /HPF 09/18/19 09/18/19 09/18/19 Range/Units 06:30 06:30 08:02 WBC (5.0-10.0) 10^3/uL RBC (4.2-5.4) 10^6/uL Hgb (12.0-16.0) g/dL Hct (37.0-47.0) % MCV (80-100) fL MCH (27.0-34.0) pg MCHC (33.0-35.0) g/dL Plt Count (150-450) 10^3/uL Neut % (Auto) (42.2-75.2) % Lymph % (Auto) (20.5-50.1) % [place] % (Auto) (2-8) % Eos % (Auto) (1.0-3.0) % Baso % (Auto) (0.0-1.0) % PT 37.7 H (9.0-12.0) SEC INR 4.0 H (0.9-1.2) Sodium 136 (136-145) mmol/L Potassium 3.8 (3.5-5.1) mmol/L Chloride 99 (98-107) mmol/L Carbon Dioxide 29 (21-32) mmol/L Anion Gap 11.8 (7-13) mEq/L BUN 30 H (7-18) mg/dL Creatinine 1.69 H (0.55-1.02) mg/dL Est Cr Clr Drug Dosing 21.35 Estimated GFR (MDRD) 29 BUN/Creatinine Ratio (No establ ref range) Glucose 204 H (74-99) mg/dL POC Glucose 230 H (83-110) mg/dl Calcium 8.8 (8.5-10.1) mg/dL Total Bilirubin (0.2-1.0) mg/dL AST (15-37) U/L ALT (14-59) U/L Alkaline Phosphatase (46-116) U/L Total Protein (6.4-8.2) g/dL Albumin (3.4-5.0) g/dL Globulin Albumin/Globulin Ratio Urine Color (YELLOW) Urine Appearance (CLEAR) Urine pH (5.0-9.0) Ur Specific [place] (1.005-1.030) Urine Protein (NEGATIVE) Urine Glucose (UA) (NEGATIVE) Urine Ketones (NEGATIVE) Urine Occult Blood (NEGATIVE) Urine Nitrite (NEGATIVE) Urine Bilirubin (NEGATIVE) Urine Urobilinogen (0.2-1.0) mg/dL Ur Leukocyte Esterase (NEGATIVE) Urine RBC /HPF Urine WBC (0-5/HPF) /HPF Ur Epithelial Cells (NOT SEEN) /HPF Urine Bacteria (0-FEW/HPF) /HPF Med Orders - Current: Current Medications Albuterol (Proventil Neb Soln) 2.5 mg INH Q6H PRN PRN Reason: Wheezing Albuterol (Proventil Hfa) 0 gm INH Q6H PRN PRN Reason: Dyspnea Allopurinol (Zyloprim) 100 mg PO BID [facility] Last Admin: 09/18/19 08:43 Dose: 100 mg Documented by: Amitriptyline HCl (Elavil) 20 mg PO BEDTIME PRN PRN Reason: Insomnia Amlodipine Besylate (Norvasc) 2.5 mg PO DAILY [facility] Last Admin: 09/18/19 08:42 Dose: 2.5 mg Documented by: Bumetanide (Bumex) 2 mg PO TID@0800,1200,1600 [facility] Last Admin: 09/18/19 08:44 Dose: 2 mg Documented by: Calcitriol (Rocaltrol) 0.25 mcg PO MoFr@0900 [facility] Carvedilol (Coreg) 6.25 mg PO BIDMEALS [facility] Last Admin: 09/18/19 08:43 Dose: 6.25 mg Documented by: Cyanocobalamin (Vitamin B12) 100 mcg PO DAILY [facility] Last Admin: 09/18/19 08:45 Dose: 100 mcg Documented by: Hydromorphone HCl (Dilaudid) 1 mg IV Q2H PRN PRN Reason: Pain (severe 7-10) Last Admin: 09/18/19 08:45 Dose: 1 mg Documented by: Sodium Chloride (Normal Saline) 1,000 mls @ 75 mls/hr IV ASDIRECTED [facility] Last Admin: 09/17/19 22:53 Dose: 75 mls/hr Documented by: Insulin Human Lispro (Humalog) 30 unit SUBCUT TIDMEALS [facility] Last Admin: 09/18/19 08:40 Dose: 30 units Documented by: Isosorbide Mononitrate (Imdur) 90 mg PO DAILY [facility] Last Admin: 09/18/19 08:41 Dose: 90 mg Documented by: Levothyroxine Sodium (Levothyroxine) 150 mcg PO ACBREAKFAST [facility] Last Admin: 09/18/19 05:47 Dose: 150 mcg Documented by: Lorazepam (Ativan) 1 mg PO BEDTIME PRN PRN Reason: Anxiety Meclizine HCl (Antivert) 25 mg PO QID PRN PRN Reason: vertigo Metolazone (Zaroxolyn) 2.5 mg PO SuTh@0900 [facility] Non-Formulary Medication (Amiloride Hcl) 5 mg PO DAILY [facility] Ondansetron HCl (Zofran) 4 mg IVPUSH Q6H PRN PRN Reason: Nausea/Vomiting Last Admin: 09/18/19 09:22 Dose: 4 mg Documented by: Oxycodone HCl (Oxycodone) 5 mg PO Q4H PRN PRN Reason: Pain (moderate 4-6) Last Admin: 09/18/19 07:47 Dose: 5 mg Documented by: Pantoprazole Sodium (Protonix) 40 mg PO ACBREAKFAST [facility] Last Admin: 09/18/19 05:47 Dose: 40 mg Documented by: Potassium Chloride (Klor-Con 10) 40 meq PO DAILY@1200 [facility] Sodium Chloride (Saline Flush) 10 ml FLUSH ASDIRECTED PRN PRN Reason: Keep Vein Open Last Admin: 09/18/19 02:25 Dose: 10 ml Documented by: Discontinued Medications Acetaminophen (Tylenol) 650 mg PO Q4H PRN PRN Reason: Pain (Mild 1-3)/fever Amlodipine Besylate (Norvasc) 5 mg PO BID [facility] Last Admin: 09/17/19 23:44 Dose: Not Given Documented by: Bumetanide (Bumex) 1 mg PO TID [facility] Last Admin: 09/17/19 23:44 Dose: Not Given Documented by: Fentanyl (Sublimaze) 50 mcg IVPUSH ONETIME ONE Stop: 09/17/19 16:54 Last Admin: 09/17/19 17:02 Dose: 50 mcg Documented by: Hydromorphone HCl (Dilaudid) 1 mg IVPUSH ONETIME ONE Stop: 09/17/19 18:04 Last Admin: 09/17/19 18:10 Dose: 1 mg Documented by: Insulin Glargine (Lantus) 50 unit SUBCUT ONETIME ONE Stop: 09/17/19 22:51 Last Admin: 09/17/19 23:25 Dose: 50 units Documented by: Ondansetron HCl (Zofran) 4 mg IV ONETIME ONE Stop: 09/17/19 17:07 Last Admin: 09/17/19 17:09 Dose: 4 mg Documented by: Oxycodone/Acetaminophen (Percocet 325-5 Mg) 1 tab PO Q4H PRN PRN Reason: Pain (moderate 4-6) - Exam General: Alert, Oriented, Cooperative Neck: Supple Lungs: Clear to Auscultation, Normal Respiratory Effort Cardiovascular: Regular Rate, Regular Rhythm GI/Abdominal Exam: Normal Bowel Sounds, Soft, Non-Tender, No Organomegaly, No Distention, No Abnormal Bruit, No Mass, Pelvis Stable Extremities: Other (Tenderness left shoulder. Limited range of motion) Sepsis Event Note - Evaluation Sepsis Screening Result: No Definite Risk - Focused Exam Vital Signs: Vital Signs Temp Pulse Pulse Resp BP BP Pulse Ox 09/18/19 08:43 81 143/74 H 09/18/19 08:42 143/71 H 09/18/19 08:41 143/74 H 09/18/19 08:00 36.3 C 81 18 143/74 H 92 L 09/18/19 04:55 36.4 C 102 H 18 120/77 96 09/18/19 00:00 36.1 C 82 18 145/74 H 95 09/17/19 23:44 145/74 H Date Exam was Performed: 09/18/19 Time Exam was Performed: 10:58 - Problem List Review Problem List Initiated/Reviewed/Updated: Yes - My Orders Last 24 Hours: My Active Orders 09/17/19 Dinner Regular Diet [DIET] 09/17/19 20:14 Patient Status [ADT] Routine Oxygen Therapy [RC] PRN Up ad Faith [RC] ASDIRECTED VTE/DVT Education [RC] PER UNIT ROUTINE Vital Signs [RC] 04,08,12,16,20,00 HYDROmorphone [Dilaudid] 1 mg IV Q2H PRN Ondansetron [Zofran] 4 mg IVPUSH Q6H PRN Resuscitation Status Routine 09/17/19 20:15 Sodium Chloride 0.9% [Normal Saline] 1,000 ml IV ASDIRECTED 09/17/19 20:24 Albuterol [Proventil HFA] 0 gm INH Q6H PRN Albuterol [Proventil Neb Soln] 2.5 mg INH Q6H PRN Amitriptyline [Elavil] 20 mg PO BEDTIME PRN LORazepam [Ativan] 1 mg PO BEDTIME PRN Meclizine [Antivert] 25 mg PO QID PRN 09/17/19 20:27 RT Aerosol Therapy [RC] ASDIRECTED RT Post Treatment Assessment [RC] Click to Edit RT Pre-Treatment Assessment [RC] Click to Edit 09/17/19 21:20 oxyCODONE 5 mg PO Q4H PRN 09/17/19 23:00 allopurinoL [Zyloprim] 100 mg PO BID 09/17/19 23:13 Bumetanide [Bumex] 2 mg PO TID@0800,1200,1600 09/17/19 23:47 Blood Glucose Check, Bedside [RC] QIDACANDBED 09/18/19 06:00 Levothyroxine 150 mcg PO ACBREAKFAST Pantoprazole [ProTONIX] 40 mg PO ACBREAKFAST 09/18/19 08:00 Insulin Lispro [HumaLOG] 30 unit SUBCUT TIDMEALS carvediloL [Coreg] 6.25 mg PO BIDMEALS 09/18/19 09:00 Cyanocobalamin (Vitamin B12) [Vitamin B12] 100 mcg PO DAILY Isosorbide Mononitrate [Imdur] 90 mg PO DAILY aMILoride HCl 5 mg PO DAILY amLODIPine [Norvasc] 2.5 mg PO DAILY 09/18/19 12:00 Potassium Chloride [Klor-Con 10] 40 meq PO DAILY@1200 09/19/19 09:00 metOLazone [Zaroxolyn] 2.5 mg PO SuTh@0900 09/20/19 09:00 calcitrioL [Rocaltrol] 0.25 mcg PO MoFr@0900 - Plan Plan:: Assessment/plan #. Impacted left humeral fracture Patient has excruciating pain at this point #. DVT/atrial fibrillation/chronic anticoagulation On Coumadin and INR is supratherapeutic #. Coronary artery disease Status post previous stent #. Diabetes mellitus type 2 On insulin therapy #. Chronic kidney disease Serum creatinine is at baseline #. Hypertension Intermittently elevated Pain is likely a factor Plan: Discontinue intravenous fluid Discontinue Dilaudid Start patient on fentanyl 50 g every 2 hours Start scopolamine patch because of nausea Intravenous Zofran for control nausea Continue insulin for blood sugar control
[2019-09-18] MEDS ORDERED: DICLOFENAC SODIUM TOP PRN (11:03)
[2019-09-18] MEDS: Scopolamine 1.5 MG Transdermal Patch TRDERM SCH (11:57)
[2019-09-18] MEDS: Potassium Chloride 10 MEQ Tab.ER PO SCH ×3 (12:45→21:58)
[2019-09-18] MEDS: fentaNYL 100 MCG/2 ML SDV IVPUSH PRN ×2 (14:58→21:48)
[2019-09-18] MEDS: Amitriptyline 10 MG Tab PO SCH (21:58)
[2019-09-18] MEDS: Rifaximin 550 MG Tab PO SCH (21:58)
[2019-09-18] MEDS: Insulin Glarg,Human.Rec.Analog 100 Unit/ML SUBCUT SCH (22:09)
[2019-09-18] MEDS: Check Patch TRDERM SCH (22:13)
[2019-09-19] MEDS: oxyCODONE 5 MG Tab PO PRN ×3 (02:03→21:44)
[2019-09-19] MEDS: Levothyroxine 150 MCG Tab PO SCH (06:25)
[2019-09-19] MEDS: Pantoprazole 40 MG Tab.CR PO SCH (06:25)
[2019-09-19] MEDS: Insulin Glarg,Human.Rec.Analog 100 Unit/ML SUBCUT SCH ×2 (08:15→22:07)
[2019-09-19] MEDS: Allopurinol 100 MG Tab PO SCH ×2 (08:16→21:44)
[2019-09-19] MEDS: Rifaximin 550 MG Tab PO SCH ×2 (08:16→21:43)
[2019-09-19] MEDS: Bumetanide 1 MG Tab PO SCH ×3 (08:17→17:32)
[2019-09-19] MEDS: Metolazone 2.5 MG Tab PO SCH (08:17)
[2019-09-19] MEDS: Potassium Chloride 10 MEQ Tab.ER PO SCH ×3 (08:17→21:43)
[2019-09-19] MEDS: Aspirin 81 MG Tab.Chew PO SCH (08:17)
[2019-09-19] MEDS: Insulin Lispro 100 Units/ML 3 ML Vial SUBCUT SCH ×3 (08:18→17:34)
[2019-09-19] MEDS: Cyanocobalamin (Vitamin B12) 100 MCG Tab PO SCH (08:18)
[2019-09-19] MEDS: amLODIPine 5 MG Tab PO SCH (08:30)
[2019-09-19] MEDS: Carvedilol 6.25 MG Tab PO SCH ×2 (08:30→17:31)
[2019-09-19] MEDS: Isosorbide Mononitrate 30 MG Tab.ER PO SCH (08:30)
--- NOTE | 2019-09-19 10:26 | PCM.PN ---
- General Info Date of Service: 09/19/19 Subjective Update: Patient indicates that she does not feel better today. Still having a lot of pain of the left shoulder. Rates intensity is 10 on a scale of 0-10. Has not had a bowel movement today. Nausea is better. Has not vomited today - Review of Systems General: Reports: Malaise HEENT: Reports: No Symptoms Pulmonary: Reports: No Symptoms Cardiovascular: Reports: No Symptoms Gastrointestinal: Reports: No Symptoms Musculoskeletal: Reports: Arm Pain - Patient Data Vitals - Most Recent: Last Vital Signs Temp 36.9 C 09/19/19 08:00 Pulse 101 H 09/19/19 08:30 Resp 20 09/19/19 08:00 BP 147/54 H 09/19/19 08:30 Pulse Ox 93 L 09/19/19 09:24 Weight - Most Recent: 106.322 kg I&O - Last 24 Hours: Intake & Output 09/18/19 09/19/19 09/19/19 22:59 06:59 14:59 Intake Total 400 Output Total 950 720 400 Balance -550 -720 -400 Lab Results Last 24 Hours: Laboratory Results - last 24 hr 09/18/19 09/18/19 09/18/19 Range/Units 11:40 17:02 20:53 PT (9.0-12.0) SEC INR (0.9-1.2) POC Glucose 194 H 204 H 324 H (83-110) mg/dl 09/19/19 09/19/19 Range/Units 05:45 07:32 PT 29.0 H (9.0-12.0) SEC INR 3.1 H (0.9-1.2) POC Glucose 237 H (83-110) mg/dl Med Orders - Current: Current Medications Albuterol (Proventil Neb Soln) 2.5 mg INH Q6H PRN PRN Reason: Wheezing Albuterol (Proventil Hfa) 0 gm INH Q6H PRN PRN Reason: Dyspnea Allopurinol (Zyloprim) 100 mg PO BID [facility] Last Admin: 09/19/19 08:16 Dose: 100 mg Documented by: Amitriptyline HCl (Elavil) 20 mg PO BEDTIME [facility] Last Admin: 09/18/19 21:58 Dose: 20 mg Documented by: Amlodipine Besylate (Norvasc) 2.5 mg PO DAILY [facility] Last Admin: 09/19/19 08:30 Dose: 2.5 mg Documented by: Aspirin (Aspirin) 81 mg PO DAILY [facility] Last Admin: 09/19/19 08:17 Dose: 81 mg Documented by: Bumetanide (Bumex) 2 mg PO TID@0800,1200,1600 [facility] Last Admin: 09/19/19 08:17 Dose: 2 mg Documented by: Calcitriol (Rocaltrol) 0.25 mcg PO MoFr@0900 [facility] Carvedilol (Coreg) 6.25 mg PO BIDMEALS [facility] Last Admin: 09/19/19 08:30 Dose: 6.25 mg Documented by: Cyanocobalamin (Vitamin B12) 100 mcg PO DAILY [facility] Last Admin: 09/19/19 08:18 Dose: 100 mcg Documented by: Fentanyl (Sublimaze) 50 mcg IVPUSH Q2H PRN PRN Reason: Pain Last Admin: 09/18/19 21:48 Dose: 50 mcg Documented by: Insulin Glargine (Lantus) 50 unit SUBCUT BEDTIME [facility] Last Admin: 09/18/19 22:09 Dose: 50 units Documented by: Insulin Glargine (Lantus) 70 unit SUBCUT DAILY [facility] Last Admin: 09/19/19 08:15 Dose: 70 units Documented by: Insulin Human Lispro (Humalog) 30 unit SUBCUT TIDMEALS [facility] Last Admin: 09/19/19 08:18 Dose: Not Given Documented by: Isosorbide Mononitrate (Imdur) 90 mg PO DAILY [facility] Last Admin: 09/19/19 08:30 Dose: 90 mg Documented by: Levothyroxine Sodium (Levothyroxine) 150 mcg PO ACBREAKFAST [facility] Last Admin: 09/19/19 06:25 Dose: 150 mcg Documented by: Lorazepam (Ativan) 1 mg PO BEDTIME PRN PRN Reason: Anxiety Last Admin: 09/18/19 21:59 Dose: 1 mg Documented by: Meclizine HCl (Antivert) 25 mg PO QID PRN PRN Reason: vertigo Last Admin: 09/18/19 12:44 Dose: 25 mg Documented by: Metolazone (Zaroxolyn) 2.5 mg PO SuTh@0900 [facility] Last Admin: 09/19/19 08:17 Dose: 2.5 mg Documented by: Miscellaneous Information (Check Patch) 1 ea TRDERM BEDTIME [facility] Last Admin: 09/18/19 22:13 Dose: Not Given Documented by: Non-Formulary Medication (Amiloride Hcl) 5 mg PO DAILY [facility] Non-Formulary Medication (Diclofenac Sodium [Voltaren 1% Gel]) 2 gm TOP QID PRN PRN Reason: Inflammation Ondansetron HCl (Zofran) 4 mg IVPUSH Q6H PRN PRN Reason: Nausea/Vomiting Last Admin: 09/18/19 15:02 Dose: 4 mg Documented by: Oxycodone HCl (Oxycodone) 10 mg PO Q4H PRN PRN Reason: Pain (moderate 4-6) Pantoprazole Sodium (Protonix) 40 mg PO ACBREAKFAST [facility] Last Admin: 09/19/19 06:25 Dose: 40 mg Documented by: Polyethylene Glycol (Miralax) 17 gm PO DAILY [facility] Potassium Chloride (Klor-Con 10) 40 meq PO DAILY@1200 [facility] Last Admin: 09/18/19 12:58 Dose: Not Given Documented by: Potassium Chloride (Klor-Con 10) 50 meq PO BID [facility] Last Admin: 09/19/19 08:17 Dose: 50 meq Documented by: Rifaximin (Xifaxan) 550 mg PO BID [facility] Last Admin: 09/19/19 08:16 Dose: 550 mg Documented by: Scopolamine (Transderm-Scop) 1.5 mg TRDERM Q72H [facility] Last Admin: 09/18/19 11:57 Dose: 1.5 mg Documented by: Sodium Chloride (Saline Flush) 10 ml FLUSH ASDIRECTED PRN PRN Reason: Keep Vein Open Last Admin: 09/18/19 21:55 Dose: 10 ml Documented by: Warfarin Sodium (Pharmacy To Dose - Warfarin) 1 dose .XX ASDIRECTED [facility] Discontinued Medications Acetaminophen (Tylenol) 650 mg PO Q4H PRN PRN Reason: Pain (Mild 1-3)/fever Amitriptyline HCl (Elavil) 20 mg PO BEDTIME PRN PRN Reason: Insomnia Amlodipine Besylate (Norvasc) 5 mg PO BID [facility] Last Admin: 09/17/19 23:44 Dose: Not Given Documented by: Bumetanide (Bumex) 1 mg PO TID [facility] Last Admin: 09/17/19 23:44 Dose: Not Given Documented by: Fentanyl (Sublimaze) 50 mcg IVPUSH ONETIME ONE Stop: 09/17/19 16:54 Last Admin: 09/17/19 17:02 Dose: 50 mcg Documented by: Hydromorphone HCl (Dilaudid) 1 mg IVPUSH ONETIME ONE Stop: 09/17/19 18:04 Last Admin: 09/17/19 18:10 Dose: 1 mg Documented by: Hydromorphone HCl (Dilaudid) 1 mg IV Q2H PRN PRN Reason: Pain (severe 7-10) Last Admin: 09/18/19 08:45 Dose: 1 mg Documented by: Sodium Chloride (Normal Saline) 1,000 mls @ 75 mls/hr IV ASDIRECTED [facility] Last Admin: 09/17/19 22:53 Dose: 75 mls/hr Documented by: Insulin Glargine (Lantus) 50 unit SUBCUT ONETIME ONE Stop: 09/17/19 22:51 Last Admin: 09/17/19 23:25 Dose: 50 units Documented by: Ondansetron HCl (Zofran) 4 mg IV ONETIME ONE Stop: 09/17/19 17:07 Last Admin: 09/17/19 17:09 Dose: 4 mg Documented by: Oxycodone HCl (Oxycodone) 5 mg PO Q4H PRN PRN Reason: Pain (moderate 4-6) Last Admin: 09/19/19 08:16 Dose: 5 mg Documented by: Oxycodone/Acetaminophen (Percocet 325-5 Mg) 1 tab PO Q4H PRN PRN Reason: Pain (moderate 4-6) - Exam General: Alert, Oriented, Cooperative, No Acute Distress Neck: Supple Lungs: Decreased Breath Sounds Cardiovascular: Regular Rate, Regular Rhythm GI/Abdominal Exam: Normal Bowel Sounds, Soft, Non-Tender, No Organomegaly, No Distention, No Abnormal Bruit, No Mass, Pelvis Stable Extremities: Arm Pain, Other (Left upper extremity is immobilized) Sepsis Event Note - Evaluation Sepsis Screening Result: No Definite Risk - Focused Exam Vital Signs: Vital Signs Temp Pulse Pulse Resp BP BP Pulse Ox 09/19/19 09:24 09/19/19 08:30 101 H 147/54 H 09/19/19 08:00 36.9 C 101 H 20 147/54 H 93 L 09/19/19 02:00 36.9 C 109 H 18 153/66 H 92 L Pulse Ox 09/19/19 09:24 93 L 09/19/19 08:30 09/19/19 08:00 09/19/19 02:00 Date Exam was Performed: 09/19/19 Time Exam was Performed: 10:24 - Problem List Review Problem List Initiated/Reviewed/Updated: Yes - My Orders Last 24 Hours: My Active Orders 09/18/19 11:01 fentaNYL [Sublimaze] 50 mcg IVPUSH Q2H PRN 09/18/19 11:03 Diclofenac Sodium [Voltaren 1% Gel] 2 gm TOP QID PRN 09/18/19 11:15 Scopolamine [Transderm-Scop] 1.5 mg TRDERM Q72H 09/18/19 12:00 Potassium Chloride [Klor-Con 10] 40 meq PO DAILY@1200 09/18/19 21:00 Amitriptyline [Elavil] 20 mg PO BEDTIME Check Patch 1 ea TRDERM BEDTIME Insulin Glarg,Human.Rec.Analog [LantUS] 50 unit SUBCUT BEDTIME Potassium Chloride [Klor-Con 10] 50 meq PO BID Rifaximin [Xifaxan] 550 mg PO BID 09/19/19 09:00 Aspirin 81 mg PO DAILY Insulin Glarg,Human.Rec.Analog [LantUS] 70 unit SUBCUT DAILY metOLazone [Zaroxolyn] 2.5 mg PO SuTh@0900 09/19/19 10:12 oxyCODONE 10 mg PO Q4H PRN 09/19/19 10:15 Pharmacy to Dose - Warfarin 1 dose .XX ASDIRECTED 09/20/19 05:11 BASIC METABOLIC PANEL,BMP [CHEM] AM CBC W/O DIFF,HEMOGRAM [HEME] AM 09/20/19 09:00 calcitrioL [Rocaltrol] 0.25 mcg PO MoFr@0900 polyethylene glycoL 3350 [MiraLAX] 17 gm PO DAILY 09/20/19 10:13 INR,PT,PROTHROMBIN TIME [COAG] Routine - Plan Plan:: Assessment/plan #. Impacted left humeral fracture Patient continues to have severe pain #. DVT/atrial fibrillation/chronic anticoagulation On Coumadin and INR is supratherapeutic #. Coronary artery disease Status post previous stent #. Diabetes mellitus type 2 On insulin therapy #. Chronic kidney disease Serum creatinine is at baseline #. Hypertension Intermittently elevated Pain is likely a factor Plan: Start patient on scheduled MiraLAX while on narcotic analgesics Send sample for PT and INR Obtain complete blood count Obtain repeat basic metabolic panel Increase oxycodone to 10 mg every 4 hours when necessary Physical and occupational therapy
[2019-09-19] MEDS: Warfarin 2 MG Tab PO ONE ×2 (14:08→14:21)
[2019-09-19] MEDS: Ondansetron 4 MG/2 ML SDV IVPUSH PRN (17:28)
[2019-09-19] MEDS: Amitriptyline 10 MG Tab PO SCH (21:42)
[2019-09-19] MEDS: Check Patch TRDERM SCH (21:46)
[2019-09-20] MEDS: oxyCODONE 5 MG Tab PO PRN ×4 (02:15→17:13)
[2019-09-20] MEDS: Levothyroxine 150 MCG Tab PO SCH (06:21)
[2019-09-20] MEDS: Pantoprazole 40 MG Tab.CR PO SCH (06:21)
[2019-09-20 06:30] LABS: ANION GAP 9.5 mEq/L (7-13)
[2019-09-20] MEDS: Carvedilol 6.25 MG Tab PO SCH ×2 (08:54→18:22)
[2019-09-20] MEDS: Rifaximin 550 MG Tab PO SCH ×2 (08:54→21:28)
[2019-09-20] MEDS: Potassium Chloride 10 MEQ Tab.ER PO SCH ×3 (08:54→21:26)
[2019-09-20] MEDS: Aspirin 81 MG Tab.Chew PO SCH (08:54)
[2019-09-20] MEDS: Cyanocobalamin (Vitamin B12) 100 MCG Tab PO SCH (08:54)
[2019-09-20] MEDS: amLODIPine 5 MG Tab PO SCH (08:54)
[2019-09-20] MEDS: Bumetanide 1 MG Tab PO SCH ×3 (08:54→17:13)
[2019-09-20] MEDS: Allopurinol 100 MG Tab PO SCH ×2 (08:54→21:27)
[2019-09-20] MEDS: Polyethylene Glycol 3350 Powder 17 GM Packet PO SCH (08:55)
[2019-09-20] MEDS ORDERED: Calcitriol 0.25 MCG Cap PO SCH (09:00)
[2019-09-20] MEDS: Insulin Glarg,Human.Rec.Analog 100 Unit/ML SUBCUT SCH ×2 (09:03→21:27)
[2019-09-20] MEDS: Insulin Lispro 100 Units/ML 3 ML Vial SUBCUT SCH ×3 (09:03→17:13)
--- NOTE | 2019-09-20 10:38 | PCM.PN ---
- General Info Date of Service: 09/20/19 Subjective Update: When the patient is sleeping she appears comfortable. Oxycodone seemed to be helping. However when she does get up, she experiences severe left shoulder pain. Patient indicated that she did have some urinary discomfort yesterday. Has improved today. - Review of Systems General: Reports: Weakness, Malaise Pulmonary: Reports: No Symptoms Cardiovascular: Reports: No Symptoms Gastrointestinal: Reports: No Symptoms Musculoskeletal: Reports: Arm Pain - Patient Data Vitals - Most Recent: Last Vital Signs Temp 36.4 C 09/20/19 08:10 Pulse 73 09/20/19 08:54 Resp 20 09/20/19 08:10 BP 151/84 H 09/20/19 08:54 Pulse Ox 94 L 09/20/19 08:10 Weight - Most Recent: 106.821 kg I&O - Last 24 Hours: Intake & Output 09/19/19 09/20/19 09/20/19 22:59 06:59 14:59 Intake Total 450 Balance 450 Lab Results Last 24 Hours: Laboratory Results - last 24 hr 09/19/19 09/19/19 09/19/19 Range/Units 11:20 17:01 21:55 WBC (5.0-10.0) 10^3/uL RBC (4.2-5.4) 10^6/uL Hgb (12.0-16.0) g/dL Hct (37.0-47.0) % MCV (80-100) fL MCH (27.0-34.0) pg MCHC (33.0-35.0) g/dL Plt Count (150-450) 10^3/uL PT (9.0-12.0) SEC INR (0.9-1.2) Sodium (136-145) mmol/L Potassium (3.5-5.1) mmol/L Chloride (98-107) mmol/L Carbon Dioxide (21-32) mmol/L Anion Gap (7-13) mEq/L BUN (7-18) mg/dL Creatinine (0.55-1.02) mg/dL Est Cr Clr Drug Dosing mL/min Estimated GFR (MDRD) Glucose (74-99) mg/dL POC Glucose 331 H 227 H 49 L* (83-110) mg/dl Calcium (8.5-10.1) mg/dL 09/19/19 09/19/19 09/20/19 Range/Units 22:12 22:46 05:50 WBC 15.7 H (5.0-10.0) 10^3/uL RBC 3.72 L (4.2-5.4) 10^6/uL Hgb 11.9 L (12.0-16.0) g/dL Hct 36.6 L (37.0-47.0) % MCV 98.4 (80-100) fL MCH 32.0 (27.0-34.0) pg MCHC 32.5 L (33.0-35.0) g/dL Plt Count 185 (150-450) 10^3/uL PT (9.0-12.0) SEC INR (0.9-1.2) Sodium (136-145) mmol/L Potassium (3.5-5.1) mmol/L Chloride (98-107) mmol/L Carbon Dioxide (21-32) mmol/L Anion Gap (7-13) mEq/L BUN (7-18) mg/dL Creatinine (0.55-1.02) mg/dL Est Cr Clr Drug Dosing mL/min Estimated GFR (MDRD) Glucose (74-99) mg/dL POC Glucose 75 L 163 H (83-110) mg/dl Calcium (8.5-10.1) mg/dL 09/20/19 09/20/19 09/20/19 Range/Units 05:50 05:50 07:59 WBC (5.0-10.0) 10^3/uL RBC (4.2-5.4) 10^6/uL Hgb (12.0-16.0) g/dL Hct (37.0-47.0) % MCV (80-100) fL MCH (27.0-34.0) pg MCHC (33.0-35.0) g/dL Plt Count (150-450) 10^3/uL PT 22.1 H (9.0-12.0) SEC INR 2.4 H (0.9-1.2) Sodium 133 L (136-145) mmol/L Potassium 3.5 (3.5-5.1) mmol/L Chloride 95 L (98-107) mmol/L Carbon Dioxide 32 (21-32) mmol/L Anion Gap 9.5 (7-13) mEq/L BUN 36 H (7-18) mg/dL Creatinine 2.08 H (0.55-1.02) mg/dL Est Cr Clr Drug Dosing 17.35 mL/min Estimated GFR (MDRD) 23 Glucose 182 H (74-99) mg/dL POC Glucose 190 H (83-110) mg/dl Calcium 8.9 (8.5-10.1) mg/dL Guillermo Results Last 24 Hours: Microbiology 09/17/19 18:20 Urine Culture - Preliminary Urine, Clean Catch Escherichia Coli Med Orders - Current: Current Medications Albuterol (Proventil Neb Soln) 2.5 mg INH Q6H PRN PRN Reason: Wheezing Albuterol (Proventil Hfa) 0 gm INH Q6H PRN PRN Reason: Dyspnea Allopurinol (Zyloprim) 100 mg PO BID [facility] Last Admin: 09/20/19 08:54 Dose: 100 mg Documented by: Amitriptyline HCl (Elavil) 20 mg PO BEDTIME [facility] Last Admin: 09/19/19 21:42 Dose: 20 mg Documented by: Amlodipine Besylate (Norvasc) 2.5 mg PO DAILY [facility] Last Admin: 09/20/19 08:54 Dose: 2.5 mg Documented by: Aspirin (Aspirin) 81 mg PO DAILY [facility] Last Admin: 09/20/19 08:54 Dose: 81 mg Documented by: Bumetanide (Bumex) 2 mg PO TID@0800,1200,1600 [facility] Last Admin: 09/20/19 08:54 Dose: 2 mg Documented by: Calcitriol (Rocaltrol) 0.25 mcg PO MoFr@0900 [facility] Last Admin: 09/20/19 08:54 Dose: 0.25 mcg Documented by: Carvedilol (Coreg) 6.25 mg PO BIDMEALS [facility] Last Admin: 09/20/19 08:54 Dose: 6.25 mg Documented by: Cephalexin (Keflex) 250 mg PO Q12H [facility] Cyanocobalamin (Vitamin B12) 100 mcg PO DAILY [facility] Last Admin: 09/20/19 08:54 Dose: 100 mcg Documented by: Fentanyl (Sublimaze) 50 mcg IVPUSH Q2H PRN PRN Reason: Pain Last Admin: 09/18/19 21:48 Dose: 50 mcg Documented by: Insulin Glargine (Lantus) 50 unit SUBCUT BEDTIME [facility] Last Admin: 09/19/19 22:07 Dose: 25 units Documented by: Insulin Glargine (Lantus) 70 unit SUBCUT DAILY [facility] Last Admin: 09/20/19 09:03 Dose: 70 units Documented by: Insulin Human Lispro (Humalog) 30 unit SUBCUT TIDMEALS [facility] Last Admin: 09/20/19 09:03 Dose: 30 units Documented by: Isosorbide Mononitrate (Imdur) 90 mg PO DAILY [facility] Last Admin: 09/19/19 08:30 Dose: 90 mg Documented by: Levothyroxine Sodium (Levothyroxine) 150 mcg PO ACBREAKFAST [facility] Last Admin: 09/20/19 06:21 Dose: 150 mcg Documented by: Lorazepam (Ativan) 1 mg PO BEDTIME PRN PRN Reason: Anxiety Last Admin: 09/18/19 21:59 Dose: 1 mg Documented by: Meclizine HCl (Antivert) 25 mg PO QID PRN PRN Reason: vertigo Last Admin: 09/18/19 12:44 Dose: 25 mg Documented by: Metolazone (Zaroxolyn) 2.5 mg PO SuTh@0900 [facility] Last Admin: 09/19/19 08:17 Dose: 2.5 mg Documented by: Miscellaneous Information (Check Patch) 1 ea TRDERM BEDTIME [facility] Last Admin: 09/19/19 21:46 Dose: Not Given Documented by: Non-Formulary Medication (Amiloride Hcl) 5 mg PO DAILY [facility] Non-Formulary Medication (Diclofenac Sodium [Voltaren 1% Gel]) 2 gm TOP QID PRN PRN Reason: Inflammation Ondansetron HCl (Zofran) 4 mg IVPUSH Q6H PRN PRN Reason: Nausea/Vomiting Last Admin: 09/19/19 17:28 Dose: 4 mg Documented by: Oxycodone HCl (Oxycodone) 10 mg PO Q4H PRN PRN Reason: Pain (moderate 4-6) Last Admin: 09/20/19 08:53 Dose: 10 mg Documented by: Pantoprazole Sodium (Protonix) 40 mg PO ACBREAKFAST [facility] Last Admin: 09/20/19 06:21 Dose: 40 mg Documented by: Polyethylene Glycol (Miralax) 17 gm PO DAILY [facility] Last Admin: 09/20/19 08:55 Dose: 17 gm Documented by: Potassium Chloride (Klor-Con 10) 40 meq PO DAILY@1200 [facility] Last Admin: 09/19/19 12:08 Dose: 40 meq Documented by: Potassium Chloride (Klor-Con 10) 50 meq PO BID [facility] Last Admin: 09/20/19 08:54 Dose: 50 meq Documented by: Rifaximin (Xifaxan) 550 mg PO BID [facility] Last Admin: 09/20/19 08:54 Dose: 550 mg Documented by: Scopolamine (Transderm-Scop) 1.5 mg TRDERM Q72H [facility] Last Admin: 09/18/19 11:57 Dose: 1.5 mg Documented by: Sodium Chloride (Saline Flush) 10 ml FLUSH ASDIRECTED PRN PRN Reason: Keep Vein Open Last Admin: 09/18/19 21:55 Dose: 10 ml Documented by: Warfarin Sodium (Pharmacy To Dose - Warfarin) 1 dose .XX ASDIRECTED [facility] Warfarin Sodium (Coumadin) 2 mg PO ONETIME ONE Stop: 09/20/19 14:01 Discontinued Medications Acetaminophen (Tylenol) 650 mg PO Q4H PRN PRN Reason: Pain (Mild 1-3)/fever Amitriptyline HCl (Elavil) 20 mg PO BEDTIME PRN PRN Reason: Insomnia Amlodipine Besylate (Norvasc) 5 mg PO BID [facility] Last Admin: 09/17/19 23:44 Dose: Not Given Documented by: Bumetanide (Bumex) 1 mg PO TID [facility] Last Admin: 09/17/19 23:44 Dose: Not Given Documented by: Fentanyl (Sublimaze) 50 mcg IVPUSH ONETIME ONE Stop: 09/17/19 16:54 Last Admin: 09/17/19 17:02 Dose: 50 mcg Documented by: Hydromorphone HCl (Dilaudid) 1 mg IVPUSH ONETIME ONE Stop: 09/17/19 18:04 Last Admin: 09/17/19 18:10 Dose: 1 mg Documented by: Hydromorphone HCl (Dilaudid) 1 mg IV Q2H PRN PRN Reason: Pain (severe 7-10) Last Admin: 09/18/19 08:45 Dose: 1 mg Documented by: Sodium Chloride (Normal Saline) 1,000 mls @ 75 mls/hr IV ASDIRECTED [facility] Last Admin: 09/17/19 22:53 Dose: 75 mls/hr Documented by: Insulin Glargine (Lantus) 50 unit SUBCUT ONETIME ONE Stop: 09/17/19 22:51 Last Admin: 09/17/19 23:25 Dose: 50 units Documented by: Ondansetron HCl (Zofran) 4 mg IV ONETIME ONE Stop: 09/17/19 17:07 Last Admin: 09/17/19 17:09 Dose: 4 mg Documented by: Oxycodone HCl (Oxycodone) 5 mg PO Q4H PRN PRN Reason: Pain (moderate 4-6) Last Admin: 09/19/19 08:16 Dose: 5 mg Documented by: Oxycodone/Acetaminophen (Percocet 325-5 Mg) 1 tab PO Q4H PRN PRN Reason: Pain (moderate 4-6) Warfarin Sodium (Coumadin) 2 mg PO ONETIME ONE Stop: 09/19/19 14:01 Last Admin: 09/19/19 14:21 Dose: 2 mg Documented by: - Exam General: Alert, Oriented, Cooperative HEENT: Pupils Equal, Pupils Reactive, EOMI, Mucous Membr. Moist/[place] Lungs: Clear to Auscultation, Normal Respiratory Effort Cardiovascular: Regular Rate, Regular Rhythm Back Exam: Decreased Range of Motion (Left shoulder is immobilized) Sepsis Event Note - Evaluation Sepsis Screening Result: No Definite Risk - Focused Exam Vital Signs: Vital Signs Temp Pulse Pulse Resp BP BP BP 09/20/19 08:54 73 151/84 H 09/20/19 08:10 36.4 C 73 20 151/84 H 09/20/19 00:00 36.8 C 109 H 22 H 157/89 H Pulse Ox 09/20/19 08:54 09/20/19 08:10 94 L 09/20/19 00:00 96 Date Exam was Performed: 09/20/19 Time Exam was Performed: 10:36 - Problem List Review Problem List Initiated/Reviewed/Updated: Yes - My Orders Last 24 Hours: My Active Orders 09/19/19 10:12 oxyCODONE 10 mg PO Q4H PRN 09/19/19 10:15 Pharmacy to Dose - Warfarin 1 dose .XX ASDIRECTED 09/20/19 09:00 calcitrioL [Rocaltrol] 0.25 mcg PO MoFr@0900 polyethylene glycoL 3350 [MiraLAX] 17 gm PO DAILY 09/20/19 10:05 OT Evaluation and Treatment [CONS] Routine PT Evaluation and Treatment [CONS] Routine 09/20/19 10:30 cephALEXin [Keflex] 250 mg PO Q12H 09/20/19 14:00 Warfarin [Coumadin] 2 mg PO ONETIME ONE - Plan Plan:: Assessment/plan #. Impacted left humeral fracture He is still not well controlled #. DVT/atrial fibrillation/chronic anticoagulation On Coumadin and INR is supratherapeutic #. Coronary artery disease Status post previous stent #. Diabetes mellitus type 2 On insulin therapy #. Chronic kidney disease Serum creatinine is at baseline #. Hypertension Intermittently elevated Pain is likely a factor #. Urinary tract infection Urine culture is growing Escherichia coli. Patient did have urinary tract symptoms. Plan: Consult physical therapy Consult occupational therapy Start patient on Keflex Patient may require placement
[2019-09-20] MEDS: Cephalexin 250 MG Cap PO SCH ×2 (10:49→21:29)
[2019-09-20] MEDS: Isosorbide Mononitrate 30 MG Tab.ER PO SCH (10:49)
[2019-09-20] MEDS: AMILORIDE HCL 5 MG PO SCH ×2 (10:57→10:58)
[2019-09-20] MEDS ORDERED: Warfarin 2 MG Tab PO ONE (14:00)
[2019-09-20] MEDS: Check Patch TRDERM SCH (21:26)
[2019-09-20] MEDS: Amitriptyline 10 MG Tab PO SCH (21:26)
[2019-09-21] MEDS: Levothyroxine 150 MCG Tab PO SCH (05:24)
[2019-09-21] MEDS: Pantoprazole 40 MG Tab.CR PO SCH (05:25)
[2019-09-21] MEDS: Bumetanide 1 MG Tab PO SCH ×3 (08:26→16:48)
[2019-09-21] MEDS: Carvedilol 6.25 MG Tab PO SCH ×2 (08:27→17:53)
[2019-09-21] MEDS: Polyethylene Glycol 3350 Powder 17 GM Packet PO SCH (08:30)
[2019-09-21] MEDS: Cyanocobalamin (Vitamin B12) 100 MCG Tab PO SCH (08:30)
[2019-09-21] MEDS: Rifaximin 550 MG Tab PO SCH ×2 (08:30→20:40)
[2019-09-21] MEDS: Insulin Glarg,Human.Rec.Analog 100 Unit/ML SUBCUT SCH ×2 (08:30→20:58)
[2019-09-21] MEDS: oxyCODONE 5 MG Tab PO PRN ×4 (08:30→22:09)
[2019-09-21] MEDS: Allopurinol 100 MG Tab PO SCH ×2 (08:30→20:40)
[2019-09-21] MEDS: Insulin Lispro 100 Units/ML 3 ML Vial SUBCUT SCH ×3 (08:30→17:14)
[2019-09-21] MEDS: Aspirin 81 MG Tab.Chew PO SCH (08:30)
[2019-09-21] MEDS: Isosorbide Mononitrate 30 MG Tab.ER PO SCH (08:30)
[2019-09-21] MEDS: amLODIPine 5 MG Tab PO SCH (08:30)
[2019-09-21] MEDS: Potassium Chloride 10 MEQ Tab.ER PO SCH ×3 (08:30→20:41)
[2019-09-21] MEDS: Cephalexin 250 MG Cap PO SCH (10:22)
[2019-09-21] MEDS ORDERED: oxyCODONE 5 MG Tab PO PRN (10:36)
--- NOTE | 2019-09-21 11:16 | PCM.PN ---
- General Info Date of Service: 09/21/19 Subjective Update: The patient has no new complaint today Still complaining of pain of the left shoulder especially with activity Denies fever chills or rigors Sometimes has nausea. - Review of Systems General: Reports: Weakness, Malaise Pulmonary: Reports: No Symptoms Cardiovascular: Reports: No Symptoms - Patient Data Vitals - Most Recent: Last Vital Signs Temp 36.9 C 09/21/19 07:39 Pulse 80 09/21/19 08:27 Resp 20 09/21/19 07:39 BP 146/52 H 09/21/19 08:30 Pulse Ox 96 09/21/19 07:39 Weight - Most Recent: 108.125 kg I&O - Last 24 Hours: Intake & Output 09/20/19 09/21/19 09/21/19 22:59 06:59 14:59 Intake Total 570 Balance 570 Lab Results Last 24 Hours: Laboratory Results - last 24 hr 09/20/19 09/20/19 09/20/19 Range/Units 11:33 17:05 20:48 PT (9.0-12.0) SEC INR (0.9-1.2) POC Glucose 268 H 91 64 L (83-110) mg/dl 09/21/19 09/21/19 09/21/19 Range/Units 03:24 07:14 07:47 PT 19.3 H (9.0-12.0) SEC INR 2.0 H (0.9-1.2) POC Glucose 122 H 117 H (83-110) mg/dl Guillermo Results Last 24 Hours: Microbiology 09/17/19 18:20 Urine Culture - Final Urine, Clean Catch Escherichia Coli Enterococcus Faecium Med Orders - Current: Current Medications Albuterol (Proventil Neb Soln) 2.5 mg INH Q6H PRN PRN Reason: Wheezing Albuterol (Proventil Hfa) 0 gm INH Q6H PRN PRN Reason: Dyspnea Allopurinol (Zyloprim) 100 mg PO BID [facility] Last Admin: 09/21/19 08:30 Dose: 100 mg Documented by: Amitriptyline HCl (Elavil) 20 mg PO BEDTIME [facility] Last Admin: 09/20/19 21:26 Dose: 20 mg Documented by: Amlodipine Besylate (Norvasc) 2.5 mg PO DAILY [facility] Last Admin: 09/21/19 08:30 Dose: 2.5 mg Documented by: Aspirin (Aspirin) 81 mg PO DAILY [facility] Last Admin: 09/21/19 08:30 Dose: 81 mg Documented by: Bumetanide (Bumex) 2 mg PO TID@0800,1200,1600 [facility] Last Admin: 09/21/19 08:26 Dose: 2 mg Documented by: Calcitriol (Rocaltrol) 0.25 mcg PO MoFr@0900 [facility] Last Admin: 09/20/19 08:54 Dose: 0.25 mcg Documented by: Carvedilol (Coreg) 6.25 mg PO BIDMEALS [facility] Last Admin: 09/21/19 08:27 Dose: 6.25 mg Documented by: Cyanocobalamin (Vitamin B12) 100 mcg PO DAILY [facility] Last Admin: 09/21/19 08:30 Dose: 100 mcg Documented by: Fentanyl (Sublimaze) 50 mcg IVPUSH Q2H PRN PRN Reason: Pain Last Admin: 09/18/19 21:48 Dose: 50 mcg Documented by: Insulin Glargine (Lantus) 50 unit SUBCUT BEDTIME [facility] Last Admin: 09/20/19 21:27 Dose: 25 units Documented by: Insulin Glargine (Lantus) 70 unit SUBCUT DAILY [facility] Last Admin: 09/21/19 08:30 Dose: 70 units Documented by: Insulin Human Lispro (Humalog) 30 unit SUBCUT TIDMEALS [facility] Last Admin: 09/21/19 08:30 Dose: 30 units Documented by: Isosorbide Mononitrate (Imdur) 90 mg PO DAILY [facility] Last Admin: 09/21/19 08:30 Dose: 90 mg Documented by: Levothyroxine Sodium (Levothyroxine) 150 mcg PO ACBREAKFAST [facility] Last Admin: 09/21/19 05:24 Dose: 150 mcg Documented by: Lorazepam (Ativan) 1 mg PO BEDTIME PRN PRN Reason: Anxiety Last Admin: 09/18/19 21:59 Dose: 1 mg Documented by: Meclizine HCl (Antivert) 25 mg PO QID PRN PRN Reason: vertigo Last Admin: 09/18/19 12:44 Dose: 25 mg Documented by: Metolazone (Zaroxolyn) 2.5 mg PO SuTh@0900 [facility] Last Admin: 09/19/19 08:17 Dose: 2.5 mg Documented by: Miscellaneous Information (Check Patch) 1 ea TRDERM BEDTIME [facility] Last Admin: 09/20/19 21:26 Dose: Not Given Documented by: Ondansetron HCl (Zofran) 4 mg IVPUSH Q6H PRN PRN Reason: Nausea/Vomiting Last Admin: 09/19/19 17:28 Dose: 4 mg Documented by: Oxycodone HCl (Oxycodone) 5 mg PO Q6H PRN PRN Reason: Pain (moderate 4-6) Oxycodone HCl (Oxycodone) 10 mg PO Q6H PRN PRN Reason: Pain (severe 7-10) Pantoprazole Sodium (Protonix) 40 mg PO ACBREAKFAST [facility] Last Admin: 09/21/19 05:25 Dose: 40 mg Documented by: Polyethylene Glycol (Miralax) 17 gm PO DAILY [facility] Last Admin: 09/21/19 08:30 Dose: 17 gm Documented by: Potassium Chloride (Klor-Con 10) 40 meq PO DAILY@1200 [facility] Last Admin: 09/20/19 13:00 Dose: 40 meq Documented by: Potassium Chloride (Klor-Con 10) 50 meq PO BID [facility] Last Admin: 09/21/19 08:30 Dose: 50 meq Documented by: Rifaximin (Xifaxan) 550 mg PO BID [facility] Last Admin: 09/21/19 08:30 Dose: 550 mg Documented by: Scopolamine (Transderm-Scop) 1.5 mg TRDERM Q72H [facility] Last Admin: 09/18/19 11:57 Dose: 1.5 mg Documented by: Sodium Chloride (Saline Flush) 10 ml FLUSH ASDIRECTED PRN PRN Reason: Keep Vein Open Last Admin: 09/18/19 21:55 Dose: 10 ml Documented by: Warfarin Sodium (Pharmacy To Dose - Warfarin) 1 dose .XX ASDIRECTED [facility] Warfarin Sodium (Coumadin) 3 mg PO ONETIME ONE Stop: 09/21/19 14:01 Discontinued Medications Acetaminophen (Tylenol) 650 mg PO Q4H PRN PRN Reason: Pain (Mild 1-3)/fever Amitriptyline HCl (Elavil) 20 mg PO BEDTIME PRN PRN Reason: Insomnia Amlodipine Besylate (Norvasc) 5 mg PO BID [facility] Last Admin: 09/17/19 23:44 Dose: Not Given Documented by: Bumetanide (Bumex) 1 mg PO TID [facility] Last Admin: 09/17/19 23:44 Dose: Not Given Documented by: Cephalexin (Keflex) 250 mg PO Q12H [facility] Last Admin: 09/21/19 10:22 Dose: 250 mg Documented by: Fentanyl (Sublimaze) 50 mcg IVPUSH ONETIME ONE Stop: 09/17/19 16:54 Last Admin: 09/17/19 17:02 Dose: 50 mcg Documented by: Hydromorphone HCl (Dilaudid) 1 mg IVPUSH ONETIME ONE Stop: 09/17/19 18:04 Last Admin: 09/17/19 18:10 Dose: 1 mg Documented by: Hydromorphone HCl (Dilaudid) 1 mg IV Q2H PRN PRN Reason: Pain (severe 7-10) Last Admin: 09/18/19 08:45 Dose: 1 mg Documented by: Sodium Chloride (Normal Saline) 1,000 mls @ 75 mls/hr IV ASDIRECTED [facility] Last Admin: 09/17/19 22:53 Dose: 75 mls/hr Documented by: Insulin Glargine (Lantus) 50 unit SUBCUT ONETIME ONE Stop: 09/17/19 22:51 Last Admin: 09/17/19 23:25 Dose: 50 units Documented by: Non-Formulary Medication (Amiloride Hcl) 5 mg PO DAILY [facility] Last Admin: 09/20/19 10:58 Dose: Not Given Documented by: Non-Formulary Medication (Diclofenac Sodium [Voltaren 1% Gel]) 2 gm TOP QID PRN PRN Reason: Inflammation Ondansetron HCl (Zofran) 4 mg IV ONETIME ONE Stop: 09/17/19 17:07 Last Admin: 09/17/19 17:09 Dose: 4 mg Documented by: Oxycodone HCl (Oxycodone) 5 mg PO Q4H PRN PRN Reason: Pain (moderate 4-6) Last Admin: 09/19/19 08:16 Dose: 5 mg Documented by: Oxycodone HCl (Oxycodone) 10 mg PO Q4H PRN PRN Reason: Pain (moderate 4-6) Last Admin: 09/20/19 17:13 Dose: 10 mg Documented by: Oxycodone/Acetaminophen (Percocet 325-5 Mg) 1 tab PO Q4H PRN PRN Reason: Pain (moderate 4-6) Warfarin Sodium (Coumadin) 2 mg PO ONETIME ONE Stop: 09/19/19 14:01 Last Admin: 09/19/19 14:21 Dose: 2 mg Documented by: Warfarin Sodium (Coumadin) 2 mg PO ONETIME ONE Stop: 09/20/19 14:01 Last Admin: 09/20/19 13:00 Dose: 2 mg Documented by: - Exam General: Alert, Oriented, Cooperative Neck: Supple Lungs: Clear to Auscultation, Normal Respiratory Effort Cardiovascular: Regular Rate, Regular Rhythm GI/Abdominal Exam: Normal Bowel Sounds, Soft, Non-Tender, No Organomegaly, No Distention, No Abnormal Bruit, No Mass, Pelvis Stable Extremities: Limited Range of Motion (Left upper extremity is immobilized), Other Sepsis Event Note - Evaluation Sepsis Screening Result: No Definite Risk - Focused Exam Vital Signs: Vital Signs Temp Pulse Pulse Resp BP BP Pulse Ox 09/21/19 08:30 146/52 H 09/21/19 08:27 80 146/52 H 09/21/19 07:39 36.9 C 80 20 146/52 H 96 09/21/19 04:00 36.4 C 103 H 24 H 151/66 H 95 Date Exam was Performed: 09/21/19 Time Exam was Performed: 11:14 - Problem List Review Problem List Initiated/Reviewed/Updated: Yes - My Orders Last 24 Hours: My Active Orders 09/20/19 20:48 GLUCOSE,POC [POC] Routine 09/21/19 10:35 oxyCODONE 5 mg PO Q6H PRN 09/21/19 10:36 oxyCODONE 10 mg PO Q6H PRN 09/21/19 10:40 Incentive Spirometry [RT Incentive Spirometry] [RC] Q2HWA 09/21/19 11:15 levoFLOXacin [Levaquin] 500 mg PO Q48H 09/21/19 14:00 Warfarin [Coumadin] 3 mg PO ONETIME ONE 09/22/19 06:00 INR,PT,PROTHROMBIN TIME [COAG] Routine - Plan Plan:: Assessment/plan #. Impacted left humeral fracture Continues to have significant pain #. DVT/atrial fibrillation/chronic anticoagulation On Coumadin and INR is supratherapeutic #. Coronary artery disease Status post previous stent #. Diabetes mellitus type 2 On insulin therapy #. Chronic kidney disease Serum creatinine is at baseline #. Hypertension Intermittently elevated Pain is likely a factor #. Urinary tract infection Urine culture is growing Escherichia coli and enterococcus. Patient did have urinary tract symptoms. Plan: Patient will require placement in a intermediate Discontinue Keflex Start patient on Augmentin to cover Escherichia coli and enterococci. Change oxycodone to 5-10 mg every 6 hours depending on intensity of pain
[2019-09-21] MEDS: Scopolamine 1.5 MG Transdermal Patch TRDERM SCH (11:56)
[2019-09-21] MEDS ORDERED: Levofloxacin 500 MG Tab PO SCH (12:00)
[2019-09-21] MEDS: Check Patch TRDERM SCH (20:39)
[2019-09-21] MEDS: Amitriptyline 10 MG Tab PO SCH (20:40)
[2019-09-21] MEDS: Sodium Chloride 0.9% 10 ML Syringe FLUSH PRN (22:23)
[2019-09-22] MEDS: Levothyroxine 150 MCG Tab PO SCH (05:09)
[2019-09-22] MEDS: Pantoprazole 40 MG Tab.CR PO SCH (05:09)
[2019-09-22] MEDS: Carvedilol 6.25 MG Tab PO SCH ×2 (08:23→18:28)
[2019-09-22] MEDS: Bumetanide 1 MG Tab PO SCH ×3 (08:23→16:27)
[2019-09-22] MEDS: Insulin Lispro 100 Units/ML 3 ML Vial SUBCUT SCH ×3 (09:41→18:20)
[2019-09-22] MEDS: Polyethylene Glycol 3350 Powder 17 GM Packet PO SCH (09:41)
[2019-09-22] MEDS: Insulin Glarg,Human.Rec.Analog 100 Unit/ML SUBCUT SCH ×2 (09:43→22:25)
[2019-09-22] MEDS: Allopurinol 100 MG Tab PO SCH ×2 (09:44→22:22)
[2019-09-22] MEDS: Aspirin 81 MG Tab.Chew PO SCH (09:44)
[2019-09-22] MEDS: amLODIPine 5 MG Tab PO SCH (09:44)
[2019-09-22] MEDS: Rifaximin 550 MG Tab PO SCH ×2 (09:44→22:00)
[2019-09-22] MEDS: Isosorbide Mononitrate 30 MG Tab.ER PO SCH (09:45)
[2019-09-22] MEDS: Cyanocobalamin (Vitamin B12) 100 MCG Tab PO SCH (09:45)
[2019-09-22] MEDS: Potassium Chloride 10 MEQ Tab.ER PO SCH ×3 (09:46→22:01)
--- NOTE | 2019-09-22 10:32 | PCM.PN ---
- General Info Date of Service: 09/22/19 Admission Dx/Problem (Free Text): Admission Diagnosis/Problem Admission Diagnosis/Problem Fracture of humerus, proximal, left, closed Subjective Update: Continues to have left shoulder pain, worse with activity Mild to moderate when resting Participating in physical and Occupational Therapy Had symptomatic hypoglycemia with blood sugar in the 60s - Review of Systems General: Denies: Fever Pulmonary: Denies: Shortness of Breath Cardiovascular: Reports: Edema. Denies: Chest Pain Psychiatric: Denies: Confusion - Patient Data Vitals - Most Recent: Last Vital Signs Temp 97.8 F 09/22/19 08:00 Pulse 88 09/22/19 08:23 Resp 20 09/22/19 08:00 BP 148/85 H 09/22/19 09:45 Pulse Ox 100 09/22/19 08:00 Weight - Most Recent: 240 lb I&O - Last 24 Hours: Intake & Output 09/21/19 09/22/19 09/22/19 22:59 06:59 14:59 Intake Total 1360 1050 340 Output Total 1100 450 700 Balance 260 600 -360 Lab Results Last 24 Hours: Laboratory Results - last 24 hr 09/21/19 09/21/19 09/21/19 Range/Units 11:35 14:10 14:37 PT (9.0-12.0) SEC INR (0.9-1.2) POC Glucose 119 H 45 L* 69 L (83-110) mg/dl 09/21/19 09/21/19 09/22/19 Range/Units 16:47 20:49 06:30 PT 18.9 H (9.0-12.0) SEC INR 2.0 H (0.9-1.2) POC Glucose 99 149 H (83-110) mg/dl 09/22/19 09/22/19 Range/Units 07:40 09:24 PT (9.0-12.0) SEC INR (0.9-1.2) POC Glucose 70 L 202 H (83-110) mg/dl Guillermo Results Last 24 Hours: Microbiology 09/17/19 18:20 Urine Culture - Final Urine, Clean Catch Escherichia Coli Enterococcus Faecium Med Orders - Current: Current Medications Albuterol (Proventil Neb Soln) 2.5 mg INH Q6H PRN PRN Reason: Wheezing Albuterol (Proventil Hfa) 0 gm INH Q6H PRN PRN Reason: Dyspnea Allopurinol (Zyloprim) 100 mg PO BID [facility] Last Admin: 09/22/19 09:44 Dose: 100 mg Documented by: Amitriptyline HCl (Elavil) 20 mg PO BEDTIME [facility] Last Admin: 09/21/19 20:40 Dose: 20 mg Documented by: Amlodipine Besylate (Norvasc) 2.5 mg PO DAILY [facility] Last Admin: 09/22/19 09:44 Dose: 2.5 mg Documented by: Aspirin (Aspirin) 81 mg PO DAILY [facility] Last Admin: 09/22/19 09:44 Dose: 81 mg Documented by: Bumetanide (Bumex) 2 mg PO TID@0800,1200,1600 [facility] Last Admin: 09/22/19 08:23 Dose: 2 mg Documented by: Calcitriol (Rocaltrol) 0.25 mcg PO MoFr@0900 [facility] Last Admin: 09/20/19 08:54 Dose: 0.25 mcg Documented by: Carvedilol (Coreg) 6.25 mg PO BIDMEALS [facility] Last Admin: 09/22/19 08:23 Dose: 6.25 mg Documented by: Cyanocobalamin (Vitamin B12) 100 mcg PO DAILY [facility] Last Admin: 09/22/19 09:45 Dose: 100 mcg Documented by: Fentanyl (Sublimaze) 50 mcg IVPUSH Q2H PRN PRN Reason: Pain Last Admin: 09/18/19 21:48 Dose: 50 mcg Documented by: Insulin Glargine (Lantus) 50 unit SUBCUT BEDTIME [facility] Last Admin: 09/21/19 20:58 Dose: 50 units Documented by: Insulin Glargine (Lantus) 70 unit SUBCUT DAILY [facility] Last Admin: 09/22/19 09:43 Dose: 70 units Documented by: Insulin Human Lispro (Humalog) 25 unit SUBCUT TIDMEALS [facility] Isosorbide Mononitrate (Imdur) 90 mg PO DAILY [facility] Last Admin: 09/22/19 09:45 Dose: 90 mg Documented by: Levofloxacin (Levaquin) 500 mg PO Q48H [facility] Last Admin: 09/21/19 11:48 Dose: 500 mg Documented by: Levothyroxine Sodium (Levothyroxine) 150 mcg PO ACBREAKFAST [facility] Last Admin: 09/22/19 05:09 Dose: 150 mcg Documented by: Lorazepam (Ativan) 1 mg PO BEDTIME PRN PRN Reason: Anxiety Last Admin: 09/18/19 21:59 Dose: 1 mg Documented by: Meclizine HCl (Antivert) 25 mg PO QID PRN PRN Reason: vertigo Last Admin: 09/18/19 12:44 Dose: 25 mg Documented by: Metolazone (Zaroxolyn) 2.5 mg PO SuTh@0900 [facility] Last Admin: 09/19/19 08:17 Dose: 2.5 mg Documented by: Miscellaneous Information (Check Patch) 1 ea TRDERM BEDTIME [facility] Last Admin: 09/21/19 20:39 Dose: Not Given Documented by: Ondansetron HCl (Zofran) 4 mg IVPUSH Q6H PRN PRN Reason: Nausea/Vomiting Last Admin: 09/19/19 17:28 Dose: 4 mg Documented by: Oxycodone HCl (Oxycodone) 5 mg PO Q6H PRN PRN Reason: Pain (moderate 4-6) Last Admin: 09/21/19 22:09 Dose: 5 mg Documented by: Oxycodone HCl (Oxycodone) 10 mg PO Q6H PRN PRN Reason: Pain (severe 7-10) Pantoprazole Sodium (Protonix) 40 mg PO ACBREAKFAST [facility] Last Admin: 09/22/19 05:09 Dose: 40 mg Documented by: Polyethylene Glycol (Miralax) 17 gm PO DAILY [facility] Last Admin: 09/22/19 09:41 Dose: 17 gm Documented by: Potassium Chloride (Klor-Con 10) 40 meq PO DAILY@1200 [facility] Last Admin: 09/21/19 11:48 Dose: 40 meq Documented by: Potassium Chloride (Klor-Con 10) 50 meq PO BID [facility] Last Admin: 09/22/19 09:46 Dose: 50 meq Documented by: Rifaximin (Xifaxan) 550 mg PO BID [facility] Last Admin: 09/22/19 09:44 Dose: 550 mg Documented by: Scopolamine (Transderm-Scop) 1.5 mg TRDERM Q72H [facility] Last Admin: 09/21/19 11:56 Dose: 1.5 mg Documented by: Sodium Chloride (Saline Flush) 10 ml FLUSH ASDIRECTED PRN PRN Reason: Keep Vein Open Last Admin: 09/21/19 22:23 Dose: 10 ml Documented by: Warfarin Sodium (Pharmacy To Dose - Warfarin) 1 dose .XX ASDIRECTED [facility] Warfarin Sodium (Coumadin) 3 mg PO ONETIME ONE Stop: 09/22/19 14:01 Discontinued Medications Acetaminophen (Tylenol) 650 mg PO Q4H PRN PRN Reason: Pain (Mild 1-3)/fever Amitriptyline HCl (Elavil) 20 mg PO BEDTIME PRN PRN Reason: Insomnia Amlodipine Besylate (Norvasc) 5 mg PO BID [facility] Last Admin: 09/17/19 23:44 Dose: Not Given Documented by: Bumetanide (Bumex) 1 mg PO TID [facility] Last Admin: 09/17/19 23:44 Dose: Not Given Documented by: Cephalexin (Keflex) 250 mg PO Q12H [facility] Last Admin: 09/21/19 10:22 Dose: 250 mg Documented by: Fentanyl (Sublimaze) 50 mcg IVPUSH ONETIME ONE Stop: 09/17/19 16:54 Last Admin: 09/17/19 17:02 Dose: 50 mcg Documented by: Hydromorphone HCl (Dilaudid) 1 mg IVPUSH ONETIME ONE Stop: 09/17/19 18:04 Last Admin: 09/17/19 18:10 Dose: 1 mg Documented by: Hydromorphone HCl (Dilaudid) 1 mg IV Q2H PRN PRN Reason: Pain (severe 7-10) Last Admin: 09/18/19 08:45 Dose: 1 mg Documented by: Sodium Chloride (Normal Saline) 1,000 mls @ 75 mls/hr IV ASDIRECTED [facility] Last Admin: 09/17/19 22:53 Dose: 75 mls/hr Documented by: Insulin Glargine (Lantus) 50 unit SUBCUT ONETIME ONE Stop: 09/17/19 22:51 Last Admin: 09/17/19 23:25 Dose: 50 units Documented by: Insulin Human Lispro (Humalog) 30 unit SUBCUT TIDMEALS [facility] Last Admin: 09/22/19 09:41 Dose: 30 units Documented by: Non-Formulary Medication (Amiloride Hcl) 5 mg PO DAILY [facility] Last Admin: 09/20/19 10:58 Dose: Not Given Documented by: Non-Formulary Medication (Diclofenac Sodium [Voltaren 1% Gel]) 2 gm TOP QID PRN PRN Reason: Inflammation Ondansetron HCl (Zofran) 4 mg IV ONETIME ONE Stop: 09/17/19 17:07 Last Admin: 09/17/19 17:09 Dose: 4 mg Documented by: Oxycodone HCl (Oxycodone) 5 mg PO Q4H PRN PRN Reason: Pain (moderate 4-6) Last Admin: 09/19/19 08:16 Dose: 5 mg Documented by: Oxycodone HCl (Oxycodone) 10 mg PO Q4H PRN PRN Reason: Pain (moderate 4-6) Last Admin: 09/21/19 08:30 Dose: 10 mg Documented by: Oxycodone/Acetaminophen (Percocet 325-5 Mg) 1 tab PO Q4H PRN PRN Reason: Pain (moderate 4-6) Warfarin Sodium (Coumadin) 2 mg PO ONETIME ONE Stop: 09/19/19 14:01 Last Admin: 09/19/19 14:21 Dose: 2 mg Documented by: Warfarin Sodium (Coumadin) 2 mg PO ONETIME ONE Stop: 09/20/19 14:01 Last Admin: 09/20/19 13:00 Dose: 2 mg Documented by: Warfarin Sodium (Coumadin) 3 mg PO ONETIME ONE Stop: 09/21/19 14:01 Last Admin: 09/21/19 13:07 Dose: 3 mg Documented by: - Exam General: Alert, Oriented Neck: Supple Lungs: Clear to Auscultation, Normal Respiratory Effort Cardiovascular: Regular Rate, Regular Rhythm Extremities: Pedal Edema, Other (Left upper extremity in sling) Sepsis Event Note - Evaluation Sepsis Screening Result: No Definite Risk - Focused Exam Vital Signs: Vital Signs Temp Pulse Pulse Resp BP BP Pulse Ox 09/22/19 09:45 148/85 H 09/22/19 09:44 148/85 H 09/22/19 08:23 88 148/85 H 09/22/19 08:00 97.8 F 88 20 148/85 H 100 09/22/19 04:45 96.3 F L 98 20 137/77 93 L 09/22/19 00:27 97.5 F 85 20 128/70 95 Date Exam was Performed: 09/22/19 Time Exam was Performed: 10:29 - Problem List & Annotations (1) Fracture of humerus, left, closed SNOMED Code(s): 73056092 Code(s): S42.302A - UNSP FRACTURE OF SHAFT OF HUMERUS, LEFT ARM, INIT Status: Acute Current Visit: Yes Qualifiers: Encounter type: initial encounter Humerus Location: proximal Fracture morphology: other fracture Fracture alignment: displaced Qualified Code(s): S42.292A - Other displaced fracture of upper end of left humerus, initial encounter for closed fracture (2) Chronic atrial fibrillation SNOMED Code(s): 772593933 Code(s): I48.2 - CHRONIC ATRIAL FIBRILLATION * DO NOT USE * Status: Acute Current Visit: No (3) Diabetes mellitus, type II, insulin dependent SNOMED Code(s): 407770811 Code(s): E11.9 - TYPE 2 DIABETES MELLITUS WITHOUT COMPLICATIONS; Z79.4 - LONG-TERM (CURRENT) USE OF INSULIN Status: Acute Current Visit: No (4) UTI, Urinary tract infectious disease SNOMED Code(s): 87095899 Code(s): N39.0 - URINARY TRACT INFECTION, SITE NOT SPECIFIED Status: Acute Current Visit: No - Problem List Review Problem List Initiated/Reviewed/Updated: Yes - My Orders Last 24 Hours: My Active Orders 09/22/19 12:00 Insulin Lispro [HumaLOG] 25 unit SUBCUT TIDMEALS 09/23/19 05:15 BASIC METABOLIC PANEL,BMP [CHEM] AM CBC WITH AUTO DIFF [HEME] AM - Plan Plan:: Assessment/plan #. Impacted left humeral fracture Continue pain control Continue physical recreational therapy #. DVT/atrial fibrillation/chronic anticoagulation Controlled with Coreg On Coumadin for anticoagulation #. Coronary artery disease No recent symptoms #. Diabetes mellitus type 2 Had symptomatic hypoglycemia Will continue long-acting insulin Cut back on mealtime insulin Continue supplemental insulin and hypoglycemia treatment as needed #. Chronic kidney disease Serum creatinine is at baseline #. Hypertension With Coreg, Norvasc #. Urinary tract infection Urine culture is growing Escherichia coli and enterococcus. antibiotic switch to levofloxacin #. discharge Plan Plan for [place] [facility] cannot accept today, plan for discharge tomorrow
[2019-09-22] MEDS: oxyCODONE 5 MG Tab PO PRN ×2 (16:27→22:22)
[2019-09-22] MEDS ORDERED: diphenhydrAMINE 25 MG Tab PO PRN (19:26)
[2019-09-22] MEDS: Amitriptyline 10 MG Tab PO SCH (22:01)
[2019-09-22] MEDS: Check Patch TRDERM SCH (22:24)
[2019-09-23] MEDS: Pantoprazole 40 MG Tab.CR PO SCH (06:02)
[2019-09-23] MEDS: Levothyroxine 150 MCG Tab PO SCH (06:02)
[2019-09-23 07:46] VITALS: BP 141/87; PULSE 97
[2019-09-23 08:46] LABS: ANION GAP 11.1 mEq/L (7-13)
[2019-09-23] MEDS: Insulin Lispro 100 Units/ML 3 ML Vial SUBCUT SCH (08:47)
[2019-09-23] MEDS: Insulin Glarg,Human.Rec.Analog 100 Unit/ML SUBCUT SCH (08:48)
[2019-09-23] MEDS: Metolazone 2.5 MG Tab PO SCH (08:51)
[2019-09-23] MEDS: Rifaximin 550 MG Tab PO SCH (08:51)
[2019-09-23] MEDS: Allopurinol 100 MG Tab PO SCH (08:51)
[2019-09-23] MEDS: Potassium Chloride 10 MEQ Tab.ER PO SCH (08:51)
[2019-09-23] MEDS: Bumetanide 1 MG Tab PO SCH (08:51)
[2019-09-23] MEDS: Carvedilol 6.25 MG Tab PO SCH (08:51)
[2019-09-23] MEDS: amLODIPine 5 MG Tab PO SCH (08:52)
[2019-09-23] MEDS: Isosorbide Mononitrate 30 MG Tab.ER PO SCH (08:53)
[2019-09-23] MEDS: Cyanocobalamin (Vitamin B12) 100 MCG Tab PO SCH (08:53)
[2019-09-23] MEDS: Aspirin 81 MG Tab.Chew PO SCH (08:53)
[2019-09-23] MEDS: Polyethylene Glycol 3350 Powder 17 GM Packet PO SCH (08:53)
--- NOTE | 2019-09-23 10:03 | PCM.DCSUM1 ---
Discharge Summary - Hospital Course Free Text/Narrative:: #. Impacted left humeral fracture Continue pain control with oxycodone prn Continue physical recreational therapy #. DVT/atrial fibrillation/chronic anticoagulation Controlled with Coreg On Coumadin for anticoagulation - check inr in a few days and adjust #. Coronary artery disease No recent symptoms #. Diabetes mellitus type 2 Had symptomatic hypoglycemia Will continue long-acting insulin Continue supplemental insulin and hypoglycemia treatment as needed #. Chronic kidney disease Serum creatinine is at baseline potassium is WNL #. Hypertension With Coreg, Norvasc #. Urinary tract infection Urine culture is growing Escherichia coli and enterococcus. antibiotic switched to levofloxacin still leukocytosis noted but afebrile follow clinically Diagnosis: Stroke: No - Discharge Data Discharge Date: 09/23/19 Discharge Disposition: Home, Self-Care 01 Condition: Good - Referral to Home Health Primary Care Physician: Red Yates MD - Discharge Diagnosis/Problem(s) (1) Fracture of humerus, left, closed SNOMED Code(s): 76211043 ICD Code: S42.302A - UNSP FRACTURE OF SHAFT OF HUMERUS, LEFT ARM, INIT Status: Acute Current Visit: Yes Qualifiers: Encounter type: initial encounter Humerus Location: proximal Fracture morphology: other fracture Fracture alignment: displaced Qualified Code(s): S42.292A - Other displaced fracture of upper end of left humerus, initial encounter for closed fracture (2) Chronic atrial fibrillation SNOMED Code(s): 145360610 ICD Code: I48.2 - CHRONIC ATRIAL FIBRILLATION * DO NOT USE * Status: Acute Current Visit: No (3) Diabetes mellitus, type II, insulin dependent SNOMED Code(s): 432610120 ICD Code: E11.9 - TYPE 2 DIABETES MELLITUS WITHOUT COMPLICATIONS; Z79.4 - SENIOR CARE (CURRENT) USE OF INSULIN Status: Acute Current Visit: No (4) UTI, Urinary tract infectious disease SNOMED Code(s): 83626639 ICD Code: N39.0 - URINARY TRACT INFECTION, SITE NOT SPECIFIED Status: Acute Current Visit: No - Patient Summary/Data Consults: Consultations 09/20/19 10:05 OT Evaluation and Treatment [CONS] Routine PT Evaluation and Treatment [CONS] Routine - Patient Instructions Diet: Diabetic Diet Activity: As Tolerated - Discharge Plan *PRESCRIPTION DRUG MONITORING PROGRAM REVIEWED*: No *COPY OF PRESCRIPTION DRUG MONITORING REPORT IN PATIENT JOSE: No Prescriptions/Med Rec: RX: levoFLOXacin [Levaquin] 500 mg PO Q48H #5 tablet RX: oxyCODONE 5 mg PO Q6H PRN #32 tablet PRN Reason: Pain (Moderate 4-6) Home Medications: Home Meds RX: LORazepam [Ativan] 1 mg PO BEDTIME PRN 11/25/13 [History] RX: Levothyroxine Sodium [Synthroid] 150 mcg PO ACBREAKFAST 11/25/13 [History] RX: Nitroglycerin [Nitrostat] 0.4 mg SL Q5M PRN MDD 3 11/25/13 [History] RX: Psyllium [Metamucil SF] 1 tbsp PO DAILY PRN 11/25/13 [History] RX: Albuterol [Proventil HFA] 2 inh INH Q6H PRN 03/28/15 [History] RX: Potassium Chloride 50 meq PO BID 03/28/15 [History] RX: Carvedilol [Coreg] 6.25 mg PO BIDMEALS 03/27/16 [History] RX: Cyanocobalamin (Vitamin B12) [Vitamin B12] 100 mcg PO DAILY 03/27/16 [History] RX: Hypromellose/PF [Retaine Hpmc 0.3% Eye Drops] 1 drop EYEBOTH Q4H PRN 03/27/16 [History] RX: Meclizine [Antivert] 25 mg PO QID PRN 03/27/16 [History] RX: Pantoprazole Sodium [Protonix] 40 mg PO DAILY 03/27/16 [History] RX: Docusate Sodium 100 mg PO BID 08/30/16 [History] RX: allopurinoL [Zyloprim] 100 mg PO BID 05/02/17 [History] RX: traMADol [Ultram] 50 mg PO DAILY PRN 05/02/17 [History] Dextrose Tabs 16 g PO ASDIRECTED PRN 04/10/18 [History] RX: Amitriptyline [Elavil] 20 mg PO BEDTIME 04/10/18 [History] RX: Cinnamon Bark [Cinnamon] 1,000 mg PO DAILY 04/10/18 [History] RX: Ondansetron [Zofran] 4 mg PO Q6H PRN 04/10/18 [History] RX: Pantothenic Acid 500 mg PO BEDTIME 04/10/18 [History] RX: aMILoride HCl [Amiloride HCl] 5 mg PO DAILY 04/10/18 [History] RX: metOLazone [Metolazone] 2.5 mg PO .TWICEWEEKLY 04/10/18 [History] RX: Insulin Lispro [HumaLOG] 30 unit SUBCUT TIDMEALS vial 04/22/18 [Rx] RX: amLODIPine Besylate [Amlodipine Besylate] 2.5 mg PO DAILY 12/12/18 [History] RX: calcitrioL [Calcitriol] 0.25 mcg PO ASDIRECTED 12/12/18 [History] RX: Aspirin 81 mg PO DAILY 09/17/19 [History] RX: Bumetanide [Bumex] 2 mg PO TID 09/17/19 [History] RX: Cholecalciferol (Vitamin D3) [Vitamin D3] 75 mcg PO DAILY 09/17/19 [History] RX: Diclofenac Sodium [Voltaren 1% Gel] 2 gm TOP QID PRN 09/17/19 [History] RX: Isosorbide Mononitrate [Isosorbide Mononitrate ER] 90 mg PO DAILY 09/17/19 [History] RX: Multivitamin [Multivitamins] 1 cap PO DAILY 09/17/19 [History] RX: Potassium Chloride 40 meq PO 1200 09/17/19 [History] RX: Rifaximin [Xifaxan] 1 tab PO BID 09/17/19 [History] RX: Warfarin [Coumadin] 3.75 mg PO DAILY 09/17/19 [History] RX: Albuterol [Proventil Neb Soln] 2.5 mg NEB Q6HRRT PRN 09/18/19 [History] RX: Insulin Detemir [Levemir] 50 unit SQ BEDTIME 09/18/19 [History] RX: Insulin Detemir [Levemir] 70 unit SUBCUT DAILY 09/18/19 [History] RX: Amitriptyline [Elavil] 20 mg PO BEDTIME tablet 09/23/19 [Rx] RX: levoFLOXacin [Levaquin] 500 mg PO Q48H #5 tablet 09/23/19 [Rx] RX: oxyCODONE 5 mg PO Q6H PRN #32 tablet 09/23/19 [Rx] Patient Handouts: Humerus Fracture Treated With Immobilization, [id number], Oxycodone tablets or capsules, Levofloxacin tablets Referrals: PCP,Unobtain [Ordering Only Provider] - - Discharge Summary/Plan Comment DC Time >30 min.: No - General Info Date of Service: 09/23/19 - Review of Systems General: Denies: Fever, Weakness Pulmonary: Denies: Shortness of Breath Cardiovascular: Denies: Chest Pain Gastrointestinal: Denies: Abdominal Pain Musculoskeletal: Reports: Arm Pain (left upper arm, shoulder) Neurological: Denies: Confusion - Patient Data Vitals - Most Recent: Last Vital Signs Temp 98.4 F 09/23/19 07:44 Pulse 97 09/23/19 08:51 Resp 20 09/23/19 07:44 BP 141/87 H 09/23/19 08:53 Pulse Ox 94 L 09/23/19 07:44 Weight - Most Recent: 240 lb I&O - Last 24 hours: Intake & Output 09/22/19 09/23/19 09/23/19 22:59 06:59 14:59 Intake Total 820 750 Output Total 1450 750 Balance -630 0 Lab Results - Last 24 hrs: Laboratory Results - last 24 hr 09/22/19 09/22/19 09/22/19 Range/Units 11:24 16:48 18:15 WBC (5.0-10.0) 10^3/uL RBC (4.2-5.4) 10^6/uL Hgb (12.0-16.0) g/dL Hct (37.0-47.0) % MCV (80-100) fL MCH (27.0-34.0) pg MCHC (33.0-35.0) g/dL Plt Count (150-450) 10^3/uL Neut % (Auto) (42.2-75.2) % Lymph % (Auto) (20.5-50.1) % Valley % (Auto) (2-8) % Eos % (Auto) (1.0-3.0) % Baso % (Auto) (0.0-1.0) % Sodium (136-145) mmol/L Potassium (3.5-5.1) mmol/L Chloride (98-107) mmol/L Carbon Dioxide (21-32) mmol/L Anion Gap (7-13) mEq/L BUN (7-18) mg/dL Creatinine (0.55-1.02) mg/dL Est Cr Clr Drug Dosing mL/min Estimated GFR (MDRD) Glucose (74-99) mg/dL POC Glucose 206 H 59 L 103 (83-110) mg/dl Calcium (8.5-10.1) mg/dL COVID-19 (DONG) (NEGATIVE) 09/22/19 09/23/19 09/23/19 Range/Units 20:42 07:51 08:00 WBC (5.0-10.0) 10^3/uL RBC (4.2-5.4) 10^6/uL Hgb (12.0-16.0) g/dL Hct (37.0-47.0) % MCV (80-100) fL MCH (27.0-34.0) pg MCHC (33.0-35.0) g/dL Plt Count (150-450) 10^3/uL Neut % (Auto) (42.2-75.2) % Lymph % (Auto) (20.5-50.1) % Valley % (Auto) (2-8) % Eos % (Auto) (1.0-3.0) % Baso % (Auto) (0.0-1.0) % Sodium (136-145) mmol/L Potassium (3.5-5.1) mmol/L Chloride (98-107) mmol/L Carbon Dioxide (21-32) mmol/L Anion Gap (7-13) mEq/L BUN (7-18) mg/dL Creatinine (0.55-1.02) mg/dL Est Cr Clr Drug Dosing mL/min Estimated GFR (MDRD) Glucose (74-99) mg/dL POC Glucose 109 80 L (83-110) mg/dl Calcium (8.5-10.1) mg/dL COVID-19 (DONG) Negative (NEGATIVE) 09/23/19 09/23/19 Range/Units 08:15 08:15 WBC 13.5 H (5.0-10.0) 10^3/uL RBC 4.04 L (4.2-5.4) 10^6/uL Hgb 12.9 (12.0-16.0) g/dL Hct 40.6 (37.0-47.0) % MCV 100.5 H (80-100) fL MCH 31.9 (27.0-34.0) pg MCHC 31.8 L (33.0-35.0) g/dL Plt Count 193 (150-450) 10^3/uL Neut % (Auto) 67.2 (42.2-75.2) % Lymph % (Auto) 9.6 L (20.5-50.1) % Valley % (Auto) 18.1 H (2-8) % Eos % (Auto) 4.9 H (1.0-3.0) % Baso % (Auto) 0.2 (0.0-1.0) % Sodium 139 (136-145) mmol/L Potassium 4.1 (3.5-5.1) mmol/L Chloride 99 (98-107) mmol/L Carbon Dioxide 33 H (21-32) mmol/L Anion Gap 11.1 (7-13) mEq/L BUN 46 H (7-18) mg/dL Creatinine 1.81 H (0.55-1.02) mg/dL Est Cr Clr Drug Dosing 19.93 mL/min Estimated GFR (MDRD) 27 Glucose 83 (74-99) mg/dL POC Glucose (83-110) mg/dl Calcium 9.1 (8.5-10.1) mg/dL COVID-19 (DONG) (NEGATIVE) Med Orders - Current: Current Medications Albuterol (Proventil Neb Soln) 2.5 mg INH Q6H PRN PRN Reason: Wheezing Albuterol (Proventil Hfa) 0 gm INH Q6H PRN PRN Reason: Dyspnea Allopurinol (Zyloprim) 100 mg PO BID [facility] Last Admin: 09/23/19 08:51 Dose: 100 mg Documented by: Amitriptyline HCl (Elavil) 20 mg PO BEDTIME [facility] Last Admin: 09/22/19 22:01 Dose: 20 mg Documented by: Amlodipine Besylate (Norvasc) 2.5 mg PO DAILY [facility] Last Admin: 09/23/19 08:52 Dose: 2.5 mg Documented by: Aspirin (Aspirin) 81 mg PO DAILY [facility] Last Admin: 09/23/19 08:53 Dose: 81 mg Documented by: Bumetanide (Bumex) 2 mg PO TID@0800,1200,1600 [facility] Last Admin: 09/23/19 08:51 Dose: 2 mg Documented by: Calcitriol (Rocaltrol) 0.25 mcg PO MoFr@0900 [facility] Last Admin: 09/20/19 08:54 Dose: 0.25 mcg Documented by: Carvedilol (Coreg) 6.25 mg PO BIDMEALS [facility] Last Admin: 09/23/19 08:51 Dose: 6.25 mg Documented by: Cyanocobalamin (Vitamin B12) 100 mcg PO DAILY [facility] Last Admin: 09/23/19 08:53 Dose: 100 mcg Documented by: Diphenhydramine HCl (Benadryl) 25 mg PO BEDTIME PRN PRN Reason: Insomnia Last Admin: 09/22/19 22:01 Dose: 25 mg Documented by: Fentanyl (Sublimaze) 50 mcg IVPUSH Q2H PRN PRN Reason: Pain Last Admin: 09/18/19 21:48 Dose: 50 mcg Documented by: Insulin Glargine (Lantus) 50 unit SUBCUT BEDTIME [facility] Last Admin: 09/22/19 22:25 Dose: 50 units Documented by: Insulin Glargine (Lantus) 70 unit SUBCUT DAILY [facility] Last Admin: 09/23/19 08:48 Dose: 70 units Documented by: Insulin Human Lispro (Humalog) 25 unit SUBCUT TIDMEALS [facility] Last Admin: 09/23/19 08:47 Dose: 25 units Documented by: Isosorbide Mononitrate (Imdur) 90 mg PO DAILY [facility] Last Admin: 09/23/19 08:53 Dose: 90 mg Documented by: Levofloxacin (Levaquin) 500 mg PO Q48H [facility] Last Admin: 09/21/19 11:48 Dose: 500 mg Documented by: Levothyroxine Sodium (Levothyroxine) 150 mcg PO ACBREAKFAST [facility] Last Admin: 09/23/19 06:02 Dose: 150 mcg Documented by: Lorazepam (Ativan) 1 mg PO BEDTIME PRN PRN Reason: Anxiety Last Admin: 09/18/19 21:59 Dose: 1 mg Documented by: Meclizine HCl (Antivert) 25 mg PO QID PRN PRN Reason: vertigo Last Admin: 09/18/19 12:44 Dose: 25 mg Documented by: Metolazone (Zaroxolyn) 2.5 mg PO SuTh@0900 [facility] Last Admin: 09/23/19 08:51 Dose: 2.5 mg Documented by: Miscellaneous Information (Check Patch) 1 ea TRDERM BEDTIME [facility] Last Admin: 09/22/19 22:24 Dose: Not Given Documented by: Ondansetron HCl (Zofran) 4 mg IVPUSH Q6H PRN PRN Reason: Nausea/Vomiting Last Admin: 09/19/19 17:28 Dose: 4 mg Documented by: Oxycodone HCl (Oxycodone) 5 mg PO Q6H PRN PRN Reason: Pain (moderate 4-6) Last Admin: 09/22/19 22:22 Dose: 5 mg Documented by: Oxycodone HCl (Oxycodone) 10 mg PO Q6H PRN PRN Reason: Pain (severe 7-10) Last Admin: 09/23/19 09:28 Dose: 10 mg Documented by: Pantoprazole Sodium (Protonix) 40 mg PO ACBREAKFAST [facility] Last Admin: 09/23/19 06:02 Dose: 40 mg Documented by: Polyethylene Glycol (Miralax) 17 gm PO DAILY [facility] Last Admin: 09/23/19 08:53 Dose: Not Given Documented by: Potassium Chloride (Klor-Con 10) 40 meq PO DAILY@1200 [facility] Last Admin: 09/22/19 12:27 Dose: 40 meq Documented by: Potassium Chloride (Klor-Con 10) 50 meq PO BID [facility] Last Admin: 09/23/19 08:51 Dose: 50 meq Documented by: Rifaximin (Xifaxan) 550 mg PO BID [facility] Last Admin: 09/23/19 08:51 Dose: 550 mg Documented by: Scopolamine (Transderm-Scop) 1.5 mg TRDERM Q72H [facility] Last Admin: 09/21/19 11:56 Dose: 1.5 mg Documented by: Sodium Chloride (Saline Flush) 10 ml FLUSH ASDIRECTED PRN PRN Reason: Keep Vein Open Last Admin: 09/21/19 22:23 Dose: 10 ml Documented by: Warfarin Sodium (Pharmacy To Dose - Warfarin) 1 dose .XX ASDIRECTED [facility] Discontinued Medications Acetaminophen (Tylenol) 650 mg PO Q4H PRN PRN Reason: Pain (Mild 1-3)/fever Amitriptyline HCl (Elavil) 20 mg PO BEDTIME PRN PRN Reason: Insomnia Amlodipine Besylate (Norvasc) 5 mg PO BID [facility] Last Admin: 09/17/19 23:44 Dose: Not Given Documented by: Bumetanide (Bumex) 1 mg PO TID [facility] Last Admin: 09/17/19 23:44 Dose: Not Given Documented by: Cephalexin (Keflex) 250 mg PO Q12H [facility] Last Admin: 09/21/19 10:22 Dose: 250 mg Documented by: Fentanyl (Sublimaze) 50 mcg IVPUSH ONETIME ONE Stop: 09/17/19 16:54 Last Admin: 09/17/19 17:02 Dose: 50 mcg Documented by: Hydromorphone HCl (Dilaudid) 1 mg IVPUSH ONETIME ONE Stop: 09/17/19 18:04 Last Admin: 09/17/19 18:10 Dose: 1 mg Documented by: Hydromorphone HCl (Dilaudid) 1 mg IV Q2H PRN PRN Reason: Pain (severe 7-10) Last Admin: 09/18/19 08:45 Dose: 1 mg Documented by: Sodium Chloride (Normal Saline) 1,000 mls @ 75 mls/hr IV ASDIRECTED [facility] Last Admin: 09/17/19 22:53 Dose: 75 mls/hr Documented by: Insulin Glargine (Lantus) 50 unit SUBCUT ONETIME ONE Stop: 09/17/19 22:51 Last Admin: 09/17/19 23:25 Dose: 50 units Documented by: Insulin Human Lispro (Humalog) 30 unit SUBCUT TIDMEALS [facility] Last Admin: 09/22/19 09:41 Dose: 30 units Documented by: Non-Formulary Medication (Amiloride Hcl) 5 mg PO DAILY [facility] Last Admin: 09/20/19 10:58 Dose: Not Given Documented by: Non-Formulary Medication (Diclofenac Sodium [Voltaren 1% Gel]) 2 gm TOP QID PRN PRN Reason: Inflammation Ondansetron HCl (Zofran) 4 mg IV ONETIME ONE Stop: 09/17/19 17:07 Last Admin: 09/17/19 17:09 Dose: 4 mg Documented by: Oxycodone HCl (Oxycodone) 5 mg PO Q4H PRN PRN Reason: Pain (moderate 4-6) Last Admin: 09/19/19 08:16 Dose: 5 mg Documented by: Oxycodone HCl (Oxycodone) 10 mg PO Q4H PRN PRN Reason: Pain (moderate 4-6) Last Admin: 09/21/19 08:30 Dose: 10 mg Documented by: Oxycodone/Acetaminophen (Percocet 325-5 Mg) 1 tab PO Q4H PRN PRN Reason: Pain (moderate 4-6) Warfarin Sodium (Coumadin) 2 mg PO ONETIME ONE Stop: 09/19/19 14:01 Last Admin: 09/19/19 14:21 Dose: 2 mg Documented by: Warfarin Sodium (Coumadin) 2 mg PO ONETIME ONE Stop: 09/20/19 14:01 Last Admin: 09/20/19 13:00 Dose: 2 mg Documented by: Warfarin Sodium (Coumadin) 3 mg PO ONETIME ONE Stop: 09/21/19 14:01 Last Admin: 09/21/19 13:07 Dose: 3 mg Documented by: Warfarin Sodium (Coumadin) 3 mg PO ONETIME ONE Stop: 09/22/19 14:01 Last Admin: 09/22/19 14:41 Dose: 3 mg Documented by: - Exam General: Reports: Alert, Oriented Neck: Reports: Supple Lungs: Reports: Decreased Breath Sounds Cardiovascular: Reports: Irregular Rhythm GI/Abdominal Exam: Normal Bowel Sounds, Soft, Non-Tender Extremities: Pedal Edema (trace b/l)
== END 2019-09-23 10:35 | disposition home or self-care (01) ==
LOC: DL.ED 16:44 → DL.MS 19:07
PROVIDERS: ADMIT Hospitalist; ATTEND Internal Medicine
DX: S42.252A Displaced fracture of greater tuberosity of left humerus, initial encounter for closed fracture (principal); N39.0 Urinary tract infection, site not specified; B95.2 Enterococcus as the cause of diseases classified elsewhere; B96.20 Unspecified Escherichia coli [E. coli] as the cause of diseases classified elsewhere; J45.909 Unspecified asthma, uncomplicated; I13.0 Hypertensive heart and chronic kidney disease with heart failure and stage 1 through stage 4 chronic kidney disease, or unspecified chronic kidney disease; N18.3 Chronic kidney disease, stage 3 (moderate); I50.33 Acute on chronic diastolic (congestive) heart failure; I25.10 Atherosclerotic heart disease of native coronary artery without angina pectoris; E11.22 Type 2 diabetes mellitus with diabetic chronic kidney disease; K21.9 Gastro-esophageal reflux disease without esophagitis; E03.9 Hypothyroidism, unspecified; E66.9 Obesity, unspecified; I48.20 Chronic atrial fibrillation, unspecified; Z20.828 Contact with and (suspected) exposure to other viral communicable diseases; Z86.718 Personal history of other venous thrombosis and embolism; Z87.891 Personal history of nicotine dependence; Z79.01 Long term (current) use of anticoagulants; Z88.5 Allergy status to narcotic agent; Z88.6 Allergy status to analgesic agent; Z88.2 Allergy status to sulfonamides; Z88.8 Allergy status to other drugs, medicaments and biological substances; Z88.7 Allergy status to serum and vaccine; Z88.1 Allergy status to other antibiotic agents; Z68.41 Body mass index [BMI] 40.0-44.9, adult; Z79.4 Long term (current) use of insulin; Z88.0 Allergy status to penicillin; Z79.890 Hormone replacement therapy; Z79.899 Other long term (current) drug therapy; W01.0XXA Fall on same level from slipping, tripping and stumbling without subsequent striking against object, initial encounter
CPT/HCPCS: 36415; 70450; 72125; 73030; 80048; 80053; 81001; 82962; 85025; 85027; 85610; 87086; 87088; 87186; 87635; 94010; 96374; 96375; 97116; 97162; 97166; 97530; 99284; 99285; A9270; J1170; J1815; J2405; J3010; J7030; U0002

== ENCOUNTER 2019-10-23 08:45 | Emergency (ER) | payer BC ==
--- NOTE | 2019-10-23 09:11 | PCM.SN.2 ---
- Free Text/Narrative Note: 79-year-old female, resident at [facility] since fall in August 2019. Sustained a left humeral fracture (non-operative) and was admitted to SNF for recovery and therapy. She fell overnight (unwitnessed). No head trauma, no LOC. Denies hitting anything. Yesterday had complained of vaguely not feeling well, but has had normal vital signs and blood sugars. Initial plan was for labs and UA this morning. She is now complaining of sharp pain under the left breast. I spoke with her by phone and she denied hitting her chest during the fall. She did add that she hit her left elbow when she fell, although she did not share this with the nursing staff. She will be sent to ER for further evaluation. Case discussed with ER provider. VS this mornin/71. HR 112. RR 19. SAT 95% RA. FSG 213. Wt 248 lbs. Pain 10/10. Past Medical History: DM 2, well controlled since admission to SNF, but with history of uncontrolled diabetes for years. CKD-3, HTN, chronic Coumadin anticoagulaion (last INR 2.3 on 10/17) for paroxysmal Afib. 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 Hx of UTIs. Coronary artery disease; last angio in 2017 showed mild non-obstructive CAD. CHF with preserved EF of greater than 70%. Grade 2 diastolic dysfunction. Morbid obesity. Diverticulosis. Hiatal hernia. Portal hypertensive gastropathy (fatty liver). Anxiety. Cerebrovascular disease.
--- NOTE | 2019-10-23 10:25 | EDM.PDOC ---
ED HPI GENERAL MEDICAL PROBLEM - General Chief Complaint: General Stated Complaint: left arm pain Time Seen by Provider: 10/23/19 09:20 Source of Information: Reports: Patient, Provider, RN History Limitations: Reports: No Limitations - History of Present Illness INITIAL COMMENTS - FREE TEXT/NARRATIVE: 79-year-old female with a past medical history for CHF, hypertension, atrial fibrillation, coronary artery disease, and [facility] who presents to the ER with left arm pain. Patient's provider had called with report. Patient reports she fell on her left arm while trying to seat in her lazy boy chair. [facility] after a nonsurgical left humerus fracture in 2019. she denies hitting her head or loss of consciousness. She reports she cannot move her left arm due to the pain. Pain is all about the left arm especially around the elbow.she denies any fevers, chills, chest pain, shortness of breath, palpitation, abdominal pain, urinary symptoms at this time. Left Lower Chest Pain Score (Numeric/FACES): 7 - Related Data Allergies Allergy/AdvReac Type Severity Reaction Status Date / Time codeine Allergy Severe Rash Verified 10/23/19 09:20 indomethacin [From Indocin] Allergy Severe Other Verified 10/23/19 09:20 indomethacin sodium Allergy Severe Headache Verified 10/23/19 09:20 [From Indocin] Penicillins Allergy Severe Hives Verified 10/23/19 09:20 pentazocine [From Talwin] Allergy Severe Delusions Verified 10/23/19 09:20 Sulfa (Sulfonamide Allergy Severe Hives Verified 10/23/19 09:20 Antibiotics) sulfamethoxazole Allergy Severe Hives Verified 10/23/19 09:20 [From Bactrim] trimethoprim [From Bactrim] Allergy Severe Hives Verified 10/23/19 09:20 ampicillin Allergy Intermediate Hives Verified 10/23/19 09:20 atorvastatin calcium AdvReac Mild Muscle Verified 10/23/19 09:20 [From Lipitor] Aches duloxetine HCl AdvReac Mild Nausea Verified 10/23/19 09:20 [From Cymbalta] lactose AdvReac Mild Diarrhea Verified 10/23/19 09:20 lisinopril AdvReac Mild Cough Verified 10/23/19 09:20 metoprolol AdvReac Mild Fatigue Verified 10/23/19 09:20 pravastatin AdvReac Mild Muscle Verified 10/23/19 09:20 Aches simvastatin AdvReac Mild Muscle Verified 10/23/19 09:20 Aches spironolactone AdvReac Mild Headache Verified 10/23/19 09:20 tuberculin, purified protein AdvReac Mild Rash Verified 10/23/19 09:20 deriva [tuberculin,purif.prot.deriv.] Iodinated Contrast Media AdvReac Unknown Other Verified 10/23/19 09:20 [Iodinated Contrast Media - IV Dye] clindamycin AdvReac Abdominal Verified 10/23/19 09:20 Pain clonazepam [From Klonopin] AdvReac Other Verified 10/23/19 09:20 hydrochlorothiazide AdvReac Lethargy Verified 10/23/19 09:20 tetanus toxoid, adsorbed AdvReac Other Verified 10/23/19 09:20 zoster vaccine live AdvReac Other Verified 10/23/19 09:20 flannel Allergy Burning Uncoded 05/18/19 20:17 Home Meds: Home Meds LORazepam [Ativan] 1 mg PO BEDTIME PRN 11/25/13 [History] Levothyroxine Sodium [Synthroid] 150 mcg PO ACBREAKFAST 11/25/13 [History] Nitroglycerin [Nitrostat] 0.4 mg SL Q5M PRN MDD 3 11/25/13 [History] Psyllium [Metamucil SF] 1 tbsp PO DAILY PRN 11/25/13 [History] Albuterol [Proventil HFA] 2 inh INH Q6H PRN 03/28/15 [History] Potassium Chloride 50 meq PO BID 03/28/15 [History] Carvedilol [Coreg] 6.25 mg PO BIDMEALS 03/27/16 [History] Cyanocobalamin (Vitamin B12) [Vitamin B12] 100 mcg PO DAILY 03/27/16 [History] Hypromellose/PF [Retaine Hpmc 0.3% Eye Drops] 1 drop EYEBOTH Q4H PRN 03/27/16 [History] Meclizine [Antivert] 25 mg PO QID PRN 03/27/16 [History] Pantoprazole Sodium [Protonix] 40 mg PO DAILY 03/27/16 [History] Docusate Sodium 100 mg PO BID 08/30/16 [History] allopurinoL [Zyloprim] 100 mg PO BID 05/02/17 [History] traMADol [Ultram] 50 mg PO DAILY PRN 05/02/17 [History] Amitriptyline [Elavil] 20 mg PO BEDTIME 04/10/18 [History] Cinnamon Bark [Cinnamon] 1,000 mg PO DAILY 04/10/18 [History] Dextrose Tabs 16 g PO ASDIRECTED PRN 04/10/18 [History] Ondansetron [Zofran] 4 mg PO Q6H PRN 04/10/18 [History] Pantothenic Acid 500 mg PO BEDTIME 04/10/18 [History] aMILoride HCl [Amiloride HCl] 5 mg PO DAILY 04/10/18 [History] metOLazone [Metolazone] 2.5 mg PO .TWICEWEEKLY 04/10/18 [History] amLODIPine Besylate [Amlodipine Besylate] 2.5 mg PO DAILY 12/12/18 [History] calcitrioL [Calcitriol] 0.25 mcg PO ASDIRECTED 12/12/18 [History] Aspirin 81 mg PO DAILY 09/17/19 [History] Bumetanide [Bumex] 2 mg PO TID 09/17/19 [History] Cholecalciferol (Vitamin D3) [Vitamin D3] 75 mcg PO DAILY 09/17/19 [History] Diclofenac Sodium [Voltaren 1% Gel] 4 gm TOP QID PRN 09/17/19 [History] Isosorbide Mononitrate [Isosorbide Mononitrate ER] 90 mg PO DAILY 09/17/19 [History] Multivitamin [Multivitamins] 1 cap PO DAILY 09/17/19 [History] Potassium Chloride 40 meq PO 1200 09/17/19 [History] Rifaximin [Xifaxan] 550 mg PO BID 09/17/19 [History] Warfarin [Coumadin] 2.5 mg PO DAILY 09/17/19 [History] Albuterol [Proventil Neb Soln] 2.5 mg NEB Q6HRRT PRN 09/18/19 [History] Insulin Detemir [Levemir] 40 unit SQ BEDTIME 09/18/19 [History] Insulin Detemir [Levemir] 50 unit SUBCUT DAILY 09/18/19 [History] Amitriptyline [Elavil] 20 mg PO BEDTIME tablet 09/23/19 [Rx] levoFLOXacin [Levaquin] 500 mg PO Q48H #5 tablet 09/23/19 [Rx] oxyCODONE 5 mg PO Q6H PRN #32 tablet 09/23/19 [Rx] Insulin Lispro [HumaLOG] 20 unit SUBCUT TIDMEALS 10/23/19 [History] Past Medical History HEENT History: Reports: Cataract, Impaired Vision, Other (See Below) Other HEENT History: HEARING LOSS TOTAL-RIGHT PARTIAL-LEFT, WEARS BILAT HEARING AIDES Cardiovascular History: Reports: Afib, Blood Clots/VTE/DVT, CAD, Heart Failure, Hypertension, NE, Stents, Other (See Below) Other Cardiovascular History: CAROTID ARTERY DISEASE. HEART FAILURE WITH PRESERVED EJECTION FRACTION. HYPERTENSIVE HEART DISEASE. TIA. ACUTE ON CHRONIC DIASTOLIC CONGESTIVE HEART FAILURE Respiratory History: Reports: Asthma, Bronchitis, Recurrent, Sleep Apnea Gastrointestinal History: Reports: Cholelithiasis, Chronic Constipation, GERD, Hemorrhoids, Irritable Bowel Syndrome Other Gastrointestinal History: DENIES CONSTIPATION Genitourinary History: Reports: Chronic Renal Insuffiency, Renal Calculus, Other (See Below) Other Genitourinary History: CKD STAGE III DRAWING FRAME TENDER History: Reports: Other (See Below) Other DRAWING FRAME TENDER History: UTERUS WAS ADHESED TO HER SPINE Musculoskeletal History: Reports: Back Pain, Chronic, Fracture, Osteoarthritis Other Musculoskeletal History: FRACTURED ARM WHEN SHE WAS YOUNG Neurological History: Reports: Headaches, Chronic, TIA, Other (See Below) Other Neuro History: NORMAL PRESSURE HYDROCEPHALUS. SUBDURAL HEMATOMA. lorazepam controls headaches from shunt Psychiatric History: Reports: Depression Endocrine/Metabolic History: Reports: Diabetes, Type II, Hypothyroidism, Obesity/BMI 30+, Osteoporosis, Vitamin D Deficiency Hematologic History: Reports: Blood Transfusion(s) Immunologic History: Reports: None Oncologic (Cancer) History: Reports: Malignant Melanoma Dermatologic History: Reports: None - Infectious Disease History Infectious Disease History: Reports: Chicken Pox, Measles, Mumps, Shingles, Other (See Below) Other Infectious Disease History: EXPOSED TO SOMETHING IN [place] IN LATE 70'S THAT AFFECTED LUNGS, CANT RMEMEBER - Past Surgical History Head Surgeries/Procedures: Reports: Shunt HEENT Surgical History: Reports: Adenoidectomy, Cataract Surgery, Tonsillectomy Other HEENT Surgeries/Procedures: PE TUBE PLACEMENT/REMOVAL RIGHT EAR. BILAT CATARACT EXTRACTION WITH LENS IMPLANTS Cardiovascular Surgical History: Reports: Carotid Endarterectomy, Coronary Artery Stent Other Cardiovascular Surgeries/Procedures: IVC FILTER PLACEMENT & REMOVAL Respiratory Surgical History: Reports: None GI Surgical History: Reports: Appendectomy, Colon, Colonoscopy, EGD, Polypectomy, Other (See Below) Other GI Surgeries/Procedures: large colon mostly resected - annotated redundant bowel Female Surgical History: Reports: Breast Biopsy, Cystectomy, Hysterectomy, Salpingo-Oophorectomy, Other (See Below) Other Female Surgeries/Procedures: breast cyst Endocrine Surgical History: Reports: None Neurological Surgical History: Reports: Other (See Below) Other Neurological Surgeries/Procedures: spinal tap and INTAKE MANAGER shunt (2007) Musculoskeletal Surgical History: Reports: None Oncologic Surgical History: Reports: Biopsy of Breast Dermatological Surgical History: Reports: None Social & Family History - Family History Family Medical History: Noncontributory - Tobacco Use Smoking Status *Q: Former Smoker Used Tobacco, but Quit: Yes Month/Year Tobacco Last Used: 1982 - Caffeine Use Caffeine Use: Reports: Coffee Caffeine Use Comment: 1 CUP COFFEE. 2 CUPS TEA - Living Situation & Occupation Living situation: Reports: with Family Occupation: Retired Review of Systems - Review of Systems Review Of Systems: See Below Constitutional: Reports: No Symptoms Ears: Reports: No Symptoms Nose: Reports: No Symptoms Mouth/Throat: Reports: No Symptoms Respiratory: Reports: Other (pain is under the left armpit) Cardiovascular: Reports: Edema (bilateral lower extremities) GI/Abdominal: Reports: No Symptoms Genitourinary: Reports: No Symptoms Musculoskeletal: Reports: Shoulder Pain, Arm Pain, Joint Pain. Denies: Hand Pain Skin: Reports: Bruising (diffisused , on blood thinners) Neurological: Reports: Difficulty Walking (due to chornic dizziness) Psychiatric: Reports: No Symptoms ED EXAM, GENERAL - Physical Exam Exam: See Below Exam Limited By: No Limitations General Appearance: Alert, Moderate Distress Eye Exam: Left Eye: PERRL Ears: Hearing Grossly Normal Nose: Normal Inspection, Normal Mucosa, No Blood Throat/Mouth: Normal Lips, Normal Oropharynx, No Airway Compromise Head: Normocephalic Neck: Normal Inspection, Supple, Non-Tender Respiratory/Chest: No Respiratory Distress, Lungs Clear, Normal Breath Sounds, No Accessory Muscle Use, Chest Non-Tender Cardiovascular: Normal Peripheral Pulses, Regular Rate, Rhythm, No Edema, No Gallop, No JVD, No Murmur, No Rub GI/Abdominal: Normal Bowel Sounds, Soft, Non-Tender, No Organomegaly, No Distention, No Abnormal Bruit, No Mass (Female) Exam: Deferred Rectal (Female) Exam: Deferred Back Exam: Normal Inspection Extremities: Normal Capillary Refill, Pedal Edema (2+) Neurological: Alert, Oriented Psychiatric: Normal Affect, Normal Mood Skin Exam: Warm, Ecchymosis (patient on blood thinners) Lymphatic: No Adenopathy Course - Vital Signs Last Recorded V/S: Last Vital Signs Temp 98.9 F 10/23/19 11:38 Pulse 93 10/23/19 11:38 Resp 20 10/23/19 11:38 BP 116/85 10/23/19 11:38 Pulse Ox 97 10/23/19 11:38 - Orders/Labs/Meds Orders: Active Orders 24 hr Category Date Time Status RT Aerosol Therapy [RC] ASDIRECTED Care 10/23/19 11:37 Ordered Labs: Laboratory Tests 10/23/19 10/23/19 10/23/19 Range/Units 08:53 10:42 10:42 WBC (5.0-10.0) 10^3/uL RBC (4.2-5.4) 10^6/uL Hgb (12.0-16.0) g/dL Hct (37.0-47.0) % MCV (80-100) fL MCH (27.0-34.0) pg MCHC (33.0-35.0) g/dL Plt Count (150-450) 10^3/uL Neut % (Auto) (42.2-75.2) % Lymph % (Auto) (20.5-50.1) % Routt % (Auto) (2-8) % Eos % (Auto) (1.0-3.0) % Baso % (Auto) (0.0-1.0) % PT 14.9 H (9.0-12.0) SEC INR 1.6 H (0.9-1.2) Sodium 139 (136-145) mmol/L Potassium 5.6 H D (3.5-5.1) mmol/L Chloride 102 (98-107) mmol/L Carbon Dioxide 32 (21-32) mmol/L Anion Gap 10.6 (7-13) mEq/L BUN 33 H (7-18) mg/dL Creatinine 2.19 H (0.55-1.02) mg/dL Est Cr Clr Drug Dosing 18.74 mL/min Estimated GFR (MDRD) 22 BUN/Creatinine Ratio 15.1 (No establ ref range) Glucose 129 H (74-99) mg/dL Calcium 9.0 (8.5-10.1) mg/dL Total Bilirubin 0.6 (0.2-1.0) mg/dL AST 28 (15-37) U/L ALT 27 (14-59) U/L Alkaline Phosphatase 295 H (46-116) U/L Total Protein 6.5 (6.4-8.2) g/dL Albumin 2.9 L (3.4-5.0) g/dL Globulin 3.6 Albumin/Globulin Ratio 0.81 Urine Color Yellow (YELLOW) Urine Appearance Clear (CLEAR) Urine pH 6.0 (5.0-9.0) Ur Specific [place] 1.020 (1.005-1.030) Urine Protein Negative (NEGATIVE) Urine Glucose (UA) Negative (NEGATIVE) Urine Ketones Negative (NEGATIVE) Urine Occult Blood Negative (NEGATIVE) Urine Nitrite Negative (NEGATIVE) Urine Bilirubin Negative (NEGATIVE) Urine Urobilinogen 0.2 (0.2-1.0) mg/dL Ur Leukocyte Esterase Negative (NEGATIVE) 10/23/19 Range/Units 10:42 WBC 10.7 H (5.0-10.0) 10^3/uL RBC 3.68 L (4.2-5.4) 10^6/uL Hgb 11.6 L (12.0-16.0) g/dL Hct 38.5 (37.0-47.0) % MCV 104.6 H D (80-100) fL MCH 31.5 (27.0-34.0) pg MCHC 30.1 L (33.0-35.0) g/dL Plt Count 184 (150-450) 10^3/uL Neut % (Auto) 62.2 (42.2-75.2) % Lymph % (Auto) 14.0 L (20.5-50.1) % Routt % (Auto) 18.3 H (2-8) % Eos % (Auto) 4.9 H (1.0-3.0) % Baso % (Auto) 0.6 (0.0-1.0) % PT (9.0-12.0) SEC INR (0.9-1.2) Sodium (136-145) mmol/L Potassium (3.5-5.1) mmol/L Chloride (98-107) mmol/L Carbon Dioxide (21-32) mmol/L Anion Gap (7-13) mEq/L BUN (7-18) mg/dL Creatinine (0.55-1.02) mg/dL Est Cr Clr Drug Dosing mL/min Estimated GFR (MDRD) BUN/Creatinine Ratio (No establ ref range) Glucose (74-99) mg/dL Calcium (8.5-10.1) mg/dL Total Bilirubin (0.2-1.0) mg/dL AST (15-37) U/L ALT (14-59) U/L Alkaline Phosphatase (46-116) U/L Total Protein (6.4-8.2) g/dL Albumin (3.4-5.0) g/dL Globulin Albumin/Globulin Ratio Urine Color (YELLOW) Urine Appearance (CLEAR) Urine pH (5.0-9.0) Ur Specific [place] (1.005-1.030) Urine Protein (NEGATIVE) Urine Glucose (UA) (NEGATIVE) Urine Ketones (NEGATIVE) Urine Occult Blood (NEGATIVE) Urine Nitrite (NEGATIVE) Urine Bilirubin (NEGATIVE) Urine Urobilinogen (0.2-1.0) mg/dL Ur Leukocyte Esterase (NEGATIVE) Meds: Medications Discontinued Medications Generic Name Dose Route Start Last Admin Trade Name Freq PRN Reason Stop Dose Admin Albuterol 2.5 mg 10/23/19 11:37 10/23/19 11:46 Proventil Neb Soln NEB 10/23/19 11:38 2.5 mg ONETIME ONE Administration Sodium Polystyrene Sulfonate 15 gm 10/23/19 11:38 10/23/19 11:55 Kayexalate PO 10/23/19 11:39 15 gm ONETIME ONE Administration - Re-Assessments/Exams Free Text/Narrative Re-Assessment/Exam: Patient was educated of exam, labs, chest, elbow and shoulder xray results. Reviewed Xray of Shoulder with Dr. Huizar who recommened a sling as patient was not a surgical candidate. Patient should schedule outpatient if she wants surgery per Dr. Escalante. Reviewed labs, and xray results with Dr. Valdovinos. Agreed on treating the patient with Albuterol and Kayexalate before transferring her to the [place]. Dr. Disla will treat the pneumonia outpatient. Patient was in agreement to plan. Albuterol and Kayexalate were administered. Departure - Departure Time of Disposition: 11:59 Disposition: DC/[facility] to [facility] Preliminary Cause of *Q: Respiratory Failure Condition: Fair Clinical Impression: Hyperkalemia, Chronic kidney disease, stage 3 Fracture of humerus, proximal, closed Qualifiers: Encounter type: subsequent encounter Fracture morphology: other fracture Fracture alignment: nondisplaced Laterality: left Fracture healing: with nonunion Qualified Code(s): S42.295K - Other nondisplaced fracture of upper end of left humerus, subsequent encounter for fracture with nonunion Fall Qualifiers: Encounter type: initial encounter Qualified Code(s): W19.XXXA - Unspecified fall, initial encounter Pneumonia involving right lung Qualifiers: Pneumonia type: due to unspecified organism Lung location: lower lobe of lung Qualified Code(s): J18.9 - Pneumonia, unspecified organism - Discharge Information Instructions: Community-Acquired Pneumonia, Adult, [id number], Hyperkalemia, [id number] Referrals: Maine Valdovinos MD [Primary Care Provider] - Forms: ED Department Discharge Additional Instructions: Continue taking medications as prescribed. Sepsis Event Note (ED) - Evaluation Sepsis Screening Result: No Definite Risk - Focused Exam Vital Signs: Vital Signs Temp Pulse Resp BP Pulse Ox Pulse Ox 10/23/19 11:38 98.9 F 93 20 116/85 97 10/23/19 11:37 86 100 10/23/19 09:11 99.5 F 99 20 129/61 84 L - My Orders Last 24 Hours: My Active Orders 10/23/19 11:37 RT Aerosol Therapy [RC] ASDIRECTED - Assessment/Plan Last 24 Hours: My Active Orders 10/23/19 11:37 RT Aerosol Therapy [RC] ASDIRECTED
--- NOTE | 2019-10-23 10:38 | CR ---
PROCEDURE INFORMATION: Exam: XR Chest, 2 Views Exam date and time: 10/23/2019 9:59 AM Age: 79 years old Clinical indication: Left-sided chest pain; Additional info: Fell on the left side TECHNIQUE: Imaging protocol: XR of the chest Views: 2 views. COMPARISON: CT Abdomen Pelvis wo Cont 12/12/2018 4:53 PM FINDINGS: Tubes, catheters and devices: Line tip projects in the region the right atrium. Lungs: Pulmonary venous hypertension is present. Patient also has consolidation with some volume loss in the right lower lobe with associated pleural effusion. Pleural space: Unremarkable. No pleural effusion. No pneumothorax. Heart/Mediastinum: Cardiomegaly. Bones/joints: Unremarkable. IMPRESSION: Right lower lobe pneumonia with associated pleural effusion.
--- NOTE | 2019-10-23 10:41 | CR ---
PROCEDURE INFORMATION: Exam: XR Left Shoulder Exam date and time: 10/23/2019 10:02 AM Age: 79 years old Clinical indication: Injury or trauma; Fall; Initial encounter; Blunt trauma (contusions or hematomas; Elbow; Left; Injury date: 10/23/2019; Additional info: Fell on left side at the [facility] TECHNIQUE: Imaging protocol: XR Left shoulder. Views: 2 or more views. COMPARISON: CR Shoulder Comp Lt 09/17/2019 5:24 PM FINDINGS: Bones/joints: There is a impacted fracture of the proximal left humerus with displacement of the greater tuberosity.. Compared to exam there appears to be more angulation and now there is dislocation of the humeral head as well as the greater tuberosity. Hypertrophic and degenerative changes seen involving the acromioclavicular joint. Soft tissues: Normal. IMPRESSION: Impacted fracture proximal humerus now with dislocation of the humeral head and greater tuberosity. There does to be summary absorption involving the proximal humeral shaft.
--- NOTE | 2019-10-23 10:47 | CR ---
PROCEDURE INFORMATION: Exam: XR Left Elbow Exam date and time: 10/23/2019 10:05 AM Age: 79 years old Clinical indication: Injury or trauma; Fall; Initial encounter; Blunt trauma (contusions or hematomas; Left; Injury date: 10/23/2019; Patient HX: Could not obtain optimal ap elbow because of recent shoulder fracture; Additional info: Fell on his left aide TECHNIQUE: Imaging protocol: XR Left elbow. Views: 1 or 2 views. COMPARISON: No relevant prior studies available. FINDINGS: Bones/joints: Space narrowing and degenerative changes are seen involving the elbow joint. On the lateral view anterior to distal suggestive of a joint effusion. Soft tissues: There are numerous calcifications in the seen in the soft tissues. Patient has an electronic device in the soft tissues anterior to the humeral shaft. IMPRESSION: Anterior fat pad sign suggestive of joint effusion. There is joint space narrowing osteophyte formation consistent with degenerative changes no definite fractures identified on the images obtained.
[2019-10-23 11:12] LABS: ANION GAP 10.6 mEq/L (7-13)
[2019-10-23] MEDS ORDERED: Albuterol 0.083% 2.5 MG/3 ML Neb Soln NEB ONE (11:37)
[2019-10-23] MEDS ORDERED: Sodium Polystyrene Sulfonate 15 GM/60 ML Susp 60 ML Bot PO ONE (11:38)
[2019-10-23 11:39] VITALS: BP 116/85; PULSE 93
== END 2019-10-23 12:20 ==
LOC: DL.ED 08:45 → EDSTATUS 08:45 → DL.ED 12:20
DX: S42.295K Other nondisplaced fracture of upper end of left humerus, subsequent encounter for fracture with nonunion (principal); J18.9 Pneumonia, unspecified organism; I13.0 Hypertensive heart and chronic kidney disease with heart failure and stage 1 through stage 4 chronic kidney disease, or unspecified chronic kidney disease; E11.22 Type 2 diabetes mellitus with diabetic chronic kidney disease; I50.9 Heart failure, unspecified; N18.3 Chronic kidney disease, stage 3 (moderate); E87.5 Hyperkalemia; I48.91 Unspecified atrial fibrillation; I25.2 Old myocardial infarction; I25.10 Atherosclerotic heart disease of native coronary artery without angina pectoris; K21.9 Gastro-esophageal reflux disease without esophagitis; E66.9 Obesity, unspecified; E03.9 Hypothyroidism, unspecified; F32.9 Major depressive disorder, single episode, unspecified; Z79.4 Long term (current) use of insulin; Z79.01 Long term (current) use of anticoagulants; Z95.5 Presence of coronary angioplasty implant and graft; Z79.899 Other long term (current) drug therapy; Z90.710 Acquired absence of both cervix and uterus; Z87.891 Personal history of nicotine dependence; Z68.41 Body mass index [BMI] 40.0-44.9, adult; Z88.5 Allergy status to narcotic agent; Z88.0 Allergy status to penicillin; Z88.2 Allergy status to sulfonamides; Z88.1 Allergy status to other antibiotic agents; Z88.8 Allergy status to other drugs, medicaments and biological substances; Z91.041 Radiographic dye allergy status; Z88.7 Allergy status to serum and vaccine; W19.XXXA Unspecified fall, initial encounter
CPT/HCPCS: 36415; 71046; 73030; 73070; 80053; 81003; 85025; 85610; 94640; 99284; A9270; 99283; J7613-GY

== ENCOUNTER 2019-11-20 09:26 | Emergency (ER) | payer BC, OTHER ==
[2019-11-20] MEDS ORDERED: Sodium Chloride 0.9% 10 ML Syringe FLUSH PRN (09:38)
[2019-11-20 10:06] LABS: PTT,PARTIAL THROMBOPLSTIN TIME 33.4 SEC (22.0-34.0)
[2019-11-20 10:32] LABS: ANION GAP 12.4 mEq/L (7-13); CHLORIDE,CL 105 mmol/L (98-107); SODIUM,NA 143 mmol/L (136-145)
--- NOTE | 2019-11-20 11:15 | CT ---
PROCEDURE INFORMATION: Exam: CT Head Without Contrast Exam date and time: 11/20/2019 9:41 AM Age: 79 years old Clinical indication: Injury or trauma; Fall; Initial encounter; Blunt trauma (contusions or hematomas); Without loss of consciousness; Prior surgery; Surgery date: 6+ months TECHNIQUE: Imaging protocol: Computed tomography of the head without contrast. Radiation optimization: All CT scans at this facility use at least one of these dose optimization techniques: automated exposure control; mA and/or kV adjustment per patient size (includes targeted exams where dose is matched to clinical indication); or iterative reconstruction. COMPARISON: CT Head wo Cont 09/17/2019 5:15 PM FINDINGS: Brain: No visible evolving territorial infarct. A small area of posterior right temporal lobe encephalomalacia is again demonstrated. A small area of right frontal lobe encephalomalacia adjacent to a ventriculoperitoneal shunt catheter. No hyperdense hemorrhage. Small bilateral hypodense subdural fluid collections are again demonstrated perhaps related to chronic shunting. Small right frontal lipoma is again demonstrated. Cerebral ventricles: A ventriculoperitoneal shunt catheter is in stable position. The ventricles are stable in size. No ventriculomegaly. Bones/joints: No acute fracture seen. Severe degenerative changes of the temporomandibular joints. Prior right craniotomy. There is a right frontal calvarial rodrigo hole. Paranasal sinuses: Moderate polypoid mucosal thickening is again demonstrated in the left maxillary sinus. Mastoid air cells: The right mastoids are chronically underpneumatized. There is new fluid in the right middle ear cavity and mastoids, nonspecific. Auditory system: Nonspecific soft tissue thickening along the right external auditory canal is similar to prior. Orbits: The globes are proptotic on a chronic basis. Thinning of the lenses of the globes consistent with prior lens surgery. Vasculature: Prominent calcified atherosclerosis of the carotid siphons. Soft tissues: Unremarkable. IMPRESSION: 1. No acute intracranial abnormality seen. 2. Nonspecific right mastoid and middle ear cavity fluid.
--- NOTE | 2019-11-20 11:17 | CR ---
PROCEDURE INFORMATION: Exam: XR Pelvis Exam date and time: 11/20/2019 10:41 AM Age: 79 years old Clinical indication: Injury or trauma; Fall; Initial encounter; Blunt trauma (contusions or hematomas); Right; Hip; Additional info: Fall, right side TECHNIQUE: Imaging protocol: XR pelvis. Views: 1 or 2 view. COMPARISON: CR Hip Min 2V or 3V w Pelvis Lt 01/14/2019 3:33 PM FINDINGS: Tubes, catheters and devices: Shunt catheter tubing projects over the left pelvis. Bones/joints: No acute fracture seen. No dislocation. Mild degenerative changes. Soft tissues: Unremarkable. IMPRESSION: No acute fracture seen.
--- NOTE | 2019-11-20 11:20 | CR ---
PROCEDURE INFORMATION: Exam: XR Chest, 1 View Exam date and time: 11/20/2019 10:44 AM Age: 79 years old Clinical indication: Injury or trauma; Fall; Initial encounter; Blunt trauma (contusions or hematomas) TECHNIQUE: Imaging protocol: XR of the chest Views: 1 view. COMPARISON: 1. CR Chest 2V 10/23/2019 9:59 AM 2. CR - Shoulder Comp Lt 10/23/2019 10:02:24 AM FINDINGS: Tubes, catheters and devices: There is shunt catheter tubing. Lungs: Increased pulmonary vascular congestion and interstitial prominence suggesting mild edema. No lobar consolidation seen. Improved aeration of the right lung base. Pleural space: Unremarkable. No pleural effusion. No pneumothorax. Heart/Mediastinum: There is cardiomegaly. Bones/joints: The thoracic spine demonstrates diffuse idiopathic skeletal hyperostosis. Mild thoracic dextroconvex scoliosis. No new fracture identified. A recent fracture of the proximal left humerus is again demonstrated. IMPRESSION: Findings suggesting mild congestive heart failure.
--- NOTE | 2019-11-20 11:36 | EDM.PDOC ---
Scribed by Belen Rios 11/20/19 1036 for Casi Gallardo MD ED HPI GENERAL MEDICAL PROBLEM - General Chief Complaint: Trauma Time Seen by Provider: 11/20/19 09:26 Source of Information: Reports: Patient, EMS, EMS Notes Reviewed, RN Notes Reviewed History Limitations: Reports: No Limitations - History of Present Illness INITIAL COMMENTS - FREE TEXT/NARRATIVE: Patient arrives to ER by [facility]. Patient was getting out of bed to go to the bathroom when she fell. Her daughter found and she was found slumped against the bed on her left side. Patient is complaining of hip pain on the right side. She does not know why she fell. She denies hitting her head. She had previously injured left arm. Primary Survey Airway: self protected Breathing: normal rate and effort Circulation: intact Deformity: none apparent Expose: as appropriate GCS: 15 Secondary Survey See exam Provider Trauma Notes Arrival Time: 925 GCS on arrival: 15 C-collar present on arrival: no GCS at 1 hour: 15 Off spine board: NA Time primary survey: 927 Time secondary survey: 928 Time C-collar cleared: NA By: Time removed: GCS on discharge: 15 Onset: Today Duration: Getting Worse Location: Reports: Generalized Quality: Reports: Ache Severity: Severe Improves with: Reports: None Worsens with: Reports: None Associated Symptoms: Reports: No Other Symptoms - Related Data Allergies Allergy/AdvReac Type Severity Reaction Status Date / Time codeine Allergy Severe Rash Verified 10/23/19 09:20 indomethacin [From Indocin] Allergy Severe Other Verified 10/23/19 09:20 indomethacin sodium Allergy Severe Headache Verified 10/23/19 09:20 [From Indocin] pentazocine [From Talwin] Allergy Severe Delusions Verified 10/23/19 09:20 Sulfa (Sulfonamide Allergy Severe Hives Verified 10/23/19 09:20 Antibiotics) sulfamethoxazole Allergy Severe Hives Verified 10/23/19 09:20 [From Bactrim] trimethoprim [From Bactrim] Allergy Severe Hives Verified 10/23/19 09:20 ampicillin Allergy Intermediate Hives Verified 10/23/19 09:20 atorvastatin calcium AdvReac Mild Muscle Verified 10/23/19 09:20 [From Lipitor] Aches duloxetine HCl AdvReac Mild Nausea Verified 08/29/20 09:20 [From Cymbalta] lactose AdvReac Mild Diarrhea Verified 10/23/19 09:20 lisinopril AdvReac Mild Cough Verified 10/23/19 09:20 metoprolol AdvReac Mild Fatigue Verified 10/23/19 09:20 pravastatin AdvReac Mild Muscle Verified 10/23/19 09:20 Aches simvastatin AdvReac Mild Muscle Verified 10/23/19 09:20 Aches spironolactone AdvReac Mild Headache Verified 10/23/19 09:20 tuberculin, purified protein AdvReac Mild Rash Verified 10/23/19 09:20 deriva [tuberculin,purif.prot.deriv.] Iodinated Contrast Media AdvReac Unknown Other Verified 10/23/19 09:20 [Iodinated Contrast Media - IV Dye] clindamycin AdvReac Abdominal Verified 10/23/19 09:20 Pain clonazepam [From Klonopin] AdvReac Other Verified 10/23/19 09:20 hydrochlorothiazide AdvReac Lethargy Verified 10/23/19 09:20 tetanus toxoid, adsorbed AdvReac Other Verified 10/23/19 09:20 zoster vaccine live AdvReac Other Verified 10/23/19 09:20 flannel Allergy Burning Uncoded 05/18/19 20:17 Home Meds: Home Meds LORazepam [Ativan] 1 mg PO BEDTIME PRN 11/25/13 [History] Levothyroxine Sodium [Synthroid] 150 mcg PO ACBREAKFAST 11/25/13 [History] Nitroglycerin [Nitrostat] 0.4 mg SL Q5M PRN MDD 3 11/25/13 [History] Psyllium [Metamucil SF] 1 tbsp PO DAILY PRN 11/25/13 [History] Albuterol [Proventil HFA] 2 inh INH Q6H PRN 03/28/15 [History] Potassium Chloride 50 meq PO BID 03/28/15 [History] Carvedilol [Coreg] 6.25 mg PO BIDMEALS 03/27/16 [History] Cyanocobalamin (Vitamin B12) [Vitamin B12] 100 mcg PO DAILY 03/27/16 [History] Hypromellose/PF [Retaine Hpmc 0.3% Eye Drops] 1 drop EYEBOTH Q4H PRN 03/27/16 [History] Meclizine [Antivert] 25 mg PO QID PRN 03/27/16 [History] Pantoprazole Sodium [Protonix] 40 mg PO DAILY 03/27/16 [History] Docusate Sodium 100 mg PO BID 08/30/16 [History] allopurinoL [Zyloprim] 100 mg PO BID 05/02/17 [History] traMADol [Ultram] 50 mg PO DAILY PRN 05/02/17 [History] Amitriptyline [Elavil] 20 mg PO BEDTIME 04/10/18 [History] Cinnamon Bark [Cinnamon] 1,000 mg PO DAILY 04/10/18 [History] Dextrose Tabs 16 g PO ASDIRECTED PRN 04/10/18 [History] Ondansetron [Zofran] 4 mg PO Q6H PRN 04/10/18 [History] Pantothenic Acid 500 mg PO BEDTIME 04/10/18 [History] aMILoride HCl [Amiloride HCl] 5 mg PO DAILY 04/10/18 [History] metOLazone [Metolazone] 2.5 mg PO .TWICEWEEKLY 04/10/18 [History] amLODIPine Besylate [Amlodipine Besylate] 2.5 mg PO DAILY 12/12/18 [History] calcitrioL [Calcitriol] 0.25 mcg PO ASDIRECTED 12/12/18 [History] Aspirin 81 mg PO DAILY 09/17/19 [History] Bumetanide [Bumex] 2 mg PO TID 09/17/19 [History] Cholecalciferol (Vitamin D3) [Vitamin D3] 75 mcg PO DAILY 09/17/19 [History] Diclofenac Sodium [Voltaren 1% Gel] 4 gm TOP QID PRN 09/17/19 [History] Isosorbide Mononitrate [Isosorbide Mononitrate ER] 90 mg PO DAILY 09/17/19 [History] Multivitamin [Multivitamins] 1 cap PO DAILY 09/17/19 [History] Potassium Chloride 40 meq PO 1200 09/17/19 [History] Rifaximin [Xifaxan] 550 mg PO BID 09/17/19 [History] Warfarin [Coumadin] 2.5 mg PO DAILY 09/17/19 [History] Albuterol [Proventil Neb Soln] 2.5 mg NEB Q6HRRT PRN 09/18/19 [History] Insulin Detemir [Levemir] 40 unit SQ BEDTIME 09/18/19 [History] Insulin Detemir [Levemir] 50 unit SUBCUT DAILY 09/18/19 [History] Amitriptyline [Elavil] 20 mg PO BEDTIME tablet 09/23/19 [Rx] levoFLOXacin [Levaquin] 500 mg PO Q48H #5 tablet 09/23/19 [Rx] oxyCODONE 5 mg PO Q6H PRN #32 tablet 09/23/19 [Rx] Insulin Lispro [HumaLOG] 20 unit SUBCUT TIDMEALS 10/23/19 [History] Past Medical History HEENT History: Reports: Cataract, Impaired Vision, Other (See Below) Other HEENT History: HEARING LOSS TOTAL-RIGHT PARTIAL-LEFT, WEARS BILAT HEARING AIDES Cardiovascular History: Reports: Afib, Blood Clots/VTE/DVT, CAD, Heart Failure, Hypertension, [place], Stents, Other (See Below) Other Cardiovascular History: CAROTID ARTERY DISEASE. HEART FAILURE WITH PRESERVED EJECTION FRACTION. HYPERTENSIVE HEART DISEASE. TIA. ACUTE ON CHRONIC DIASTOLIC CONGESTIVE HEART FAILURE Respiratory History: Reports: Asthma, Bronchitis, Recurrent, Sleep Apnea Gastrointestinal History: Reports: Cholelithiasis, Chronic Constipation, GERD, Hemorrhoids, Irritable Bowel Syndrome Other Gastrointestinal History: DENIES CONSTIPATION Genitourinary History: Reports: Chronic Renal Insuffiency, Renal Calculus, Other (See Below) Other Genitourinary History: CKD STAGE III WELLNESS NURSE RN History: Reports: Other (See Below) Other WELLNESS NURSE RN History: UTERUS WAS ADHESED TO HER SPINE Musculoskeletal History: Reports: Back Pain, Chronic, Fracture, Osteoarthritis Other Musculoskeletal History: FRACTURED ARM WHEN SHE WAS YOUNG Neurological History: Reports: Headaches, Chronic, TIA, Other (See Below) Other Neuro History: NORMAL PRESSURE HYDROCEPHALUS. SUBDURAL HEMATOMA. lorazepam controls headaches from shunt Psychiatric History: Reports: Depression Endocrine/Metabolic History: Reports: Diabetes, Type II, Hypothyroidism, Obesity/BMI 30+, Osteoporosis, Vitamin D Deficiency Hematologic History: Reports: Blood Transfusion(s) Immunologic History: Reports: None Oncologic (Cancer) History: Reports: Malignant Melanoma Dermatologic History: Reports: None - Infectious Disease History Infectious Disease History: Reports: Chicken Pox, Measles, Mumps, Shingles, Other (See Below) Other Infectious Disease History: EXPOSED TO SOMETHING IN [place] IN LATE 70'S THAT AFFECTED LUNGS, CANT RMEMEBER - Past Surgical History Head Surgeries/Procedures: Reports: Shunt HEENT Surgical History: Reports: Adenoidectomy, Cataract Surgery, Tonsillectomy Other HEENT Surgeries/Procedures: PE TUBE PLACEMENT/REMOVAL RIGHT EAR. BILAT CATARACT EXTRACTION WITH LENS IMPLANTS Cardiovascular Surgical History: Reports: Carotid Endarterectomy, Coronary Artery Stent Other Cardiovascular Surgeries/Procedures: IVC FILTER PLACEMENT & REMOVAL Respiratory Surgical History: Reports: None GI Surgical History: Reports: Appendectomy, Colon, Colonoscopy, EGD, Polypectomy, Other (See Below) Other GI Surgeries/Procedures: large colon mostly resected - annotated redundant bowel Female Surgical History: Reports: Breast Biopsy, Cystectomy, Hysterectomy, Salpingo-Oophorectomy, Other (See Below) Other Female Surgeries/Procedures: breast cyst Endocrine Surgical History: Reports: None Neurological Surgical History: Reports: Other (See Below) Other Neurological Surgeries/Procedures: spinal tap and DIRECTOR ENERGY shunt (2007) Musculoskeletal Surgical History: Reports: None Oncologic Surgical History: Reports: Biopsy of Breast Dermatological Surgical History: Reports: None Social & Family History - Family History Family Medical History: Noncontributory - Caffeine Use Caffeine Use: Reports: Coffee Caffeine Use Comment: 1 CUP COFFEE. 2 CUPS TEA - Living Situation & Occupation Living situation: Reports: with Family Occupation: Retired Review of Systems - Review of Systems Review Of Systems: Comprehensive ROS is negative, except as noted in HPI. ED EXAM, GENERAL - Physical Exam Exam: See Below Exam Limited By: No Limitations General Appearance: Alert, WD/WN Eye Exam: Bilateral Eye: EOMI, Normal Inspection, PERRL Ears: Normal External Exam Nose: Normal Inspection Throat/Mouth: Normal Inspection Head: Atraumatic, Normocephalic Neck: Normal Inspection, Supple, Full Range of Motion Respiratory/Chest: No Respiratory Distress, Lungs Clear, Normal Breath Sounds Cardiovascular: Normal Peripheral Pulses, No Murmur, Irregularly Irregular Peripheral Pulses: 1+: Dorsalis Pedis (L), Dorsalis Pedis (R) GI/Abdominal: Soft, Non-Tender, No Distention (Female) Exam: Deferred Rectal (Female) Exam: Deferred Back Exam: Normal Inspection Extremities: Normal Inspection, Normal Range of Motion, Normal Capillary Refill Neurological: Alert, Oriented, Normal Cognition Psychiatric: Normal Affect, Normal Mood Skin Exam: Warm, Dry, Intact, Ecchymosis (bilateral upper extremities from previous falls) Course - Orders/Labs/Meds Orders: Active Orders 24 hr Category Date Time Status EKG Documentation Completion [RC] STAT Care 11/20/19 09:36 Ordered Peripheral IV Care [RC] . DIRECTED Care 11/20/19 09:38 Ordered Sodium Chloride 0.9% [Saline Flush] Med 11/20/19 09:38 Ordered 10 ml FLUSH ASDIRECTED PRN Peripheral IV Insertion Adult [OM.PC] Stat Oth 11/20/19 09:37 Ordered Medication Orders Sodium Chloride (Saline Flush) 10 ml FLUSH ASDIRECTED PRN PRN Reason: Keep Vein Open Labs: Laboratory Tests 11/20/19 11/20/19 11/20/19 Range/Units 09:42 09:42 09:42 WBC 7.8 (5.0-10.0) 10^3/uL RBC 4.30 (4.2-5.4) 10^6/uL Hgb 13.6 D (12.0-16.0) g/dL Hct 44.6 (37.0-47.0) % MCV 103.7 H (80-100) fL MCH 31.6 (27.0-34.0) pg MCHC 30.5 L (33.0-35.0) g/dL Plt Count 138 L (150-450) 10^3/uL Neut % (Auto) 77.4 H (42.2-75.2) % Lymph % (Auto) 10.9 L (20.5-50.1) % [place] % (Auto) 10.4 H (2-8) % Eos % (Auto) 0.9 L (1.0-3.0) % Baso % (Auto) 0.4 (0.0-1.0) % PT 15.0 H (9.0-12.0) SEC INR 1.6 H (0.9-1.2) APTT 33.4 (22.0-34.0) SEC Sodium 143 (136-145) mmol/L Potassium 4.4 (3.5-5.1) mmol/L Chloride 105 (98-107) mmol/L Carbon Dioxide 30 (21-32) mmol/L Anion Gap 12.4 (7-13) mEq/L BUN 35 H (7-18) mg/dL Creatinine 1.79 H (0.55-1.02) mg/dL Est Cr Clr Drug Dosing TNP Estimated GFR (MDRD) 27 BUN/Creatinine Ratio 19.6 (No establ ref range) Glucose 108 H (74-99) mg/dL Calcium 9.3 (8.5-10.1) mg/dL Total Bilirubin 1.0 (0.2-1.0) mg/dL AST 37 (15-37) U/L ALT 33 (14-59) U/L Alkaline Phosphatase 314 H (46-116) U/L Troponin I 0.053 (0.000-0.056) ng/mL Total Protein 6.7 (6.4-8.2) g/dL Albumin 3.4 (3.4-5.0) g/dL Globulin 3.3 Albumin/Globulin Ratio 1.0 Urine Color (YELLOW) Urine Appearance (CLEAR) Urine pH (5.0-9.0) Ur Specific [place] (1.005-1.030) Urine Protein (NEGATIVE) Urine Glucose (UA) (NEGATIVE) Urine Ketones (NEGATIVE) Urine Occult Blood (NEGATIVE) Urine Nitrite (NEGATIVE) Urine Bilirubin (NEGATIVE) Urine Urobilinogen (0.2-1.0) mg/dL Ur Leukocyte Esterase (NEGATIVE) 11/20/19 Range/Units 10:27 WBC (5.0-10.0) 10^3/uL RBC (4.2-5.4) 10^6/uL Hgb (12.0-16.0) g/dL Hct (37.0-47.0) % MCV (80-100) fL MCH (27.0-34.0) pg MCHC (33.0-35.0) g/dL Plt Count (150-450) 10^3/uL Neut % (Auto) (42.2-75.2) % Lymph % (Auto) (20.5-50.1) % [place] % (Auto) (2-8) % Eos % (Auto) (1.0-3.0) % Baso % (Auto) (0.0-1.0) % PT (9.0-12.0) SEC INR (0.9-1.2) APTT (22.0-34.0) SEC Sodium (136-145) mmol/L Potassium (3.5-5.1) mmol/L Chloride (98-107) mmol/L Carbon Dioxide (21-32) mmol/L Anion Gap (7-13) mEq/L BUN (7-18) mg/dL Creatinine (0.55-1.02) mg/dL Est Cr Clr Drug Dosing Estimated GFR (MDRD) BUN/Creatinine Ratio (No establ ref range) Glucose (74-99) mg/dL Calcium (8.5-10.1) mg/dL Total Bilirubin (0.2-1.0) mg/dL AST (15-37) U/L ALT (14-59) U/L Alkaline Phosphatase (46-116) U/L Troponin I (0.000-0.056) ng/mL Total Protein (6.4-8.2) g/dL Albumin (3.4-5.0) g/dL Globulin Albumin/Globulin Ratio Urine Color Yellow (YELLOW) Urine Appearance Slightly cloudy (CLEAR) Urine pH 5.5 (5.0-9.0) Ur Specific [place] 1.020 (1.005-1.030) Urine Protein Negative (NEGATIVE) Urine Glucose (UA) Negative (NEGATIVE) Urine Ketones Negative (NEGATIVE) Urine Occult Blood Negative (NEGATIVE) Urine Nitrite Negative (NEGATIVE) Urine Bilirubin Negative (NEGATIVE) Urine Urobilinogen 0.2 (0.2-1.0) mg/dL Ur Leukocyte Esterase Negative (NEGATIVE) Meds: Medications Generic Name Dose Route Start Last Admin Trade Name Freq PRN Reason Stop Dose Admin Sodium Chloride 10 ml 11/20/19 09:38 Saline Flush FLUSH ASDIRECTED PRN Keep Vein Open Departure - Departure Time of Disposition: 11:34 Disposition: Home, Self-Care 01 Condition: Good Clinical Impression: Hypoglycemia - Discharge Information *PRESCRIPTION DRUG MONITORING PROGRAM REVIEWED*: Not Applicable *COPY OF PRESCRIPTION DRUG MONITORING REPORT IN PATIENT JOSE: Not Applicable Forms: ED Department Discharge - My Orders Last 24 Hours: My Active Orders 11/20/19 09:36 EKG Documentation Completion [RC] STAT 11/20/19 09:37 Peripheral IV Insertion Adult [OM.PC] Stat 11/20/19 09:38 Peripheral IV Care [RC] . DIRECTED Sodium Chloride 0.9% [Saline Flush] 10 ml FLUSH ASDIRECTED PRN - Assessment/Plan Last 24 Hours: My Active Orders 11/20/19 09:36 EKG Documentation Completion [RC] STAT 11/20/19 09:37 Peripheral IV Insertion Adult [OM.PC] Stat 11/20/19 09:38 Peripheral IV Care [RC] . DIRECTED Sodium Chloride 0.9% [Saline Flush] 10 ml FLUSH ASDIRECTED PRN Assessment:: 79 yo female with a fall getting out of bed and found to by hypoglycemic Plan: reassured family that she was bushra this time, but steps need to be taken to prevent future falls sister insists on taking pt to home instead of NH and states she will be more adamant about checking her blood sugars reviewed reasons to call/return to the ER fu with PCP in 3-5 days I have read and agree with the documentation that has been completed regarding this visit. By signing this record, I attest that the documentation was completed in my physical presence and is an accurate record of the encounter.
== END 2019-11-20 11:54 | disposition home or self-care (01) ==
LOC: DL.ED 09:26
DX: E11.649 Type 2 diabetes mellitus with hypoglycemia without coma (principal); I13.0 Hypertensive heart and chronic kidney disease with heart failure and stage 1 through stage 4 chronic kidney disease, or unspecified chronic kidney disease; E11.22 Type 2 diabetes mellitus with diabetic chronic kidney disease; I50.9 Heart failure, unspecified; N18.3 Chronic kidney disease, stage 3 (moderate); E03.9 Hypothyroidism, unspecified; F32.9 Major depressive disorder, single episode, unspecified; I25.2 Old myocardial infarction; I48.91 Unspecified atrial fibrillation; K21.9 Gastro-esophageal reflux disease without esophagitis; E66.9 Obesity, unspecified; Z86.73 Personal history of transient ischemic attack (TIA), and cerebral infarction without residual deficits; Z79.01 Long term (current) use of anticoagulants; Z79.4 Long term (current) use of insulin; Z79.82 Long term (current) use of aspirin; Z79.899 Other long term (current) drug therapy; Z88.5 Allergy status to narcotic agent; Z88.2 Allergy status to sulfonamides; Z88.8 Allergy status to other drugs, medicaments and biological substances; Z88.1 Allergy status to other antibiotic agents; Z91.041 Radiographic dye allergy status; Z88.7 Allergy status to serum and vaccine; Z90.710 Acquired absence of both cervix and uterus; Z95.5 Presence of coronary angioplasty implant and graft; Z90.49 Acquired absence of other specified parts of digestive tract; W06.XXXA Fall from bed, initial encounter
CPT/HCPCS: 36415; 70450; 71045; 72170; 80053; 81003; 84484; 85025; 85610; 85730; 93005; 99283; 99285-25

== ENCOUNTER 2020-05-09 18:05 | Emergency (ER) | payer BC, OTHER ==
[2020-05-09 18:33] VITALS: BP 151/63; PULSE 87
--- NOTE | 2020-05-09 20:06 | CR ---
PROCEDURE INFORMATION: Exam: XR Abdomen Exam date and time: 05/09/2020 7:20 PM Age: 80 years old Clinical indication: Abdominal pain; Other: Constipation; Prior surgery; Surgery type: Bowel resection 1979, gallbladder, appendix TECHNIQUE: Imaging protocol: XR of the abdomen. Views: 2 Views. Upright and supine views. COMPARISON: CT Abdomen Pelvis wo Cont 12/12/2018 4:53 PM FINDINGS: Tubes, catheters and devices: PROMOTIONAL MARKETING ANALYST shunt tubing demonstrated with the abdominal component coiled in the left lower quadrant. Gastrointestinal tract: There is increased feces throughout the colon consistent with constipation. Intraperitoneal space: Normal. No free air. Organs: There has been a cholecystectomy. Bones/joints: The spine demonstrates moderate degenerative changes. IMPRESSION: 1. There has been a cholecystectomy. 2. There is increased feces throughout the colon consistent with constipation.
[2020-05-09] MEDS ORDERED: Glucagon,Human Recombinant 1 MG Vial IM PRN (20:44)
[2020-05-09] MEDS ORDERED: Insulin Regular, Human 100 Units/ML 3 ML Vial SUBCUT ONE (20:44)
[2020-05-09] MEDS ORDERED: 50% Dextrose in Water 50 ML Syringe IV PRN (20:44)
[2020-05-09 22:04] LABS: ANION GAP 11.3 mEq/L (7-13)
--- NOTE | 2020-05-09 22:13 | EDM.PDOC ---
ED HPI GENERAL MEDICAL PROBLEM - General Chief Complaint: Abdominal Pain Stated Complaint: CONSTIPATION Time Seen by Provider: 05/09/20 20:00 Source of Information: Reports: Patient History Limitations: Reports: No Limitations - History of Present Illness INITIAL COMMENTS - FREE TEXT/NARRATIVE: c/o constipation, no relief drinking milk and usual stool softener. Last BM 3 days prior. No vomiting. Some bloating, still passing flatus. no fever. Lower Abdomen Pain Score (Numeric/FACES): 10 - Related Data Allergies Allergy/AdvReac Type Severity Reaction Status Date / Time codeine Allergy Severe Rash Verified 05/09/20 18:18 indomethacin [From Indocin] Allergy Severe Other Verified 05/09/20 18:18 indomethacin sodium Allergy Severe Headache Verified 05/09/20 18:18 [From Indocin] pentazocine [From Talwin] Allergy Severe Delusions Verified 05/09/20 18:18 Sulfa (Sulfonamide Allergy Severe Hives Verified 05/09/20 18:18 Antibiotics) sulfamethoxazole Allergy Severe Hives Verified 05/09/20 18:18 [From Bactrim] trimethoprim [From Bactrim] Allergy Severe Hives Verified 05/09/20 18:18 ampicillin Allergy Intermediate Hives Verified 05/09/20 18:18 atorvastatin calcium AdvReac Mild Muscle Verified 05/09/20 18:18 [From Lipitor] Aches duloxetine HCl AdvReac Mild Nausea Verified 05/09/20 18:18 [From Cymbalta] lactose AdvReac Mild Diarrhea Verified 05/09/20 18:18 lisinopril AdvReac Mild Cough Verified 05/09/20 18:18 metoprolol AdvReac Mild Fatigue Verified 05/09/20 18:18 pravastatin AdvReac Mild Muscle Verified 05/09/20 18:18 Aches simvastatin AdvReac Mild Muscle Verified 05/09/20 18:18 Aches spironolactone AdvReac Mild Headache Verified 05/09/20 18:18 tuberculin, purified protein AdvReac Mild Rash Verified 05/09/20 18:18 deriva [tuberculin,purif.prot.deriv.] Iodinated Contrast Media AdvReac Unknown Other Verified 05/09/20 18:18 [Iodinated Contrast Media - IV Dye] clindamycin AdvReac Abdominal Verified 05/09/20 18:18 Pain clonazepam [From Klonopin] AdvReac Other Verified 05/09/20 18:18 hydrochlorothiazide AdvReac Lethargy Verified 05/09/20 18:18 tetanus toxoid, adsorbed AdvReac Other Verified 05/09/20 18:18 zoster vaccine live AdvReac Other Verified 05/09/20 18:18 flannel Allergy Burning Uncoded 05/09/20 18:18 Home Meds: Home Meds LORazepam [Ativan] 1 mg PO BEDTIME PRN 11/25/13 [History] Levothyroxine Sodium [Synthroid] 150 mcg PO ACBREAKFAST 11/25/13 [History] Nitroglycerin [Nitrostat] 0.4 mg SL Q5M PRN MDD 3 11/25/13 [History] Psyllium [Metamucil SF] 1 tbsp PO DAILY PRN 11/25/13 [History] Albuterol [Proventil HFA] 2 inh INH Q6H PRN 03/28/15 [History] Potassium Chloride 50 meq PO BID 03/28/15 [History] Carvedilol [Coreg] 6.25 mg PO BIDMEALS 03/27/16 [History] Cyanocobalamin (Vitamin B12) [Vitamin B12] 100 mcg PO DAILY 03/27/16 [History] Hypromellose/PF [Retaine Hpmc 0.3% Eye Drops] 1 drop EYEBOTH Q4H PRN 03/27/16 [History] Meclizine [Antivert] 25 mg PO QID PRN 03/27/16 [History] Pantoprazole Sodium [Protonix] 40 mg PO DAILY 03/27/16 [History] Docusate Sodium 100 mg PO BID 08/30/16 [History] allopurinoL [Zyloprim] 100 mg PO BID 05/02/17 [History] traMADol [Ultram] 50 mg PO DAILY PRN 05/02/17 [History] Amitriptyline [Elavil] 20 mg PO BEDTIME 04/10/18 [History] Cinnamon Bark [Cinnamon] 1,000 mg PO DAILY 04/10/18 [History] Dextrose Tabs 16 g PO ASDIRECTED PRN 04/10/18 [History] Ondansetron [Zofran] 4 mg PO Q6H PRN 04/10/18 [History] Pantothenic Acid 500 mg PO BEDTIME 04/10/18 [History] aMILoride HCl [Amiloride HCl] 5 mg PO DAILY 04/10/18 [History] metOLazone [Metolazone] 2.5 mg PO .TWICEWEEKLY 04/10/18 [History] amLODIPine Besylate [Amlodipine Besylate] 2.5 mg PO BID 12/12/18 [History] calcitrioL [Calcitriol] 0.25 mcg PO ASDIRECTED 12/12/18 [History] Aspirin 81 mg PO DAILY 09/17/19 [History] Bumetanide [Bumex] 2 mg PO TID 09/17/19 [History] Cholecalciferol (Vitamin D3) [Vitamin D3] 75 mcg PO DAILY 09/17/19 [History] Diclofenac Sodium [Voltaren 1% Gel] 4 gm TOP QID PRN 09/17/19 [History] Isosorbide Mononitrate [Isosorbide Mononitrate ER] 90 mg PO DAILY 09/17/19 [History] Multivitamin [Multivitamins] 1 cap PO DAILY 09/17/19 [History] Potassium Chloride 40 meq PO 1200 09/17/19 [History] Rifaximin [Xifaxan] 550 mg PO BID 09/17/19 [History] Warfarin [Coumadin] 2.5 mg PO DAILY 09/17/19 [History] Albuterol [Proventil Neb Soln] 2.5 mg NEB Q6HRRT PRN 09/18/19 [History] Insulin Detemir [Levemir] 40 unit SQ BEDTIME 09/18/19 [History] Insulin Detemir [Levemir] 50 unit SUBCUT DAILY 09/18/19 [History] Amitriptyline [Elavil] 20 mg PO BEDTIME tablet 09/23/19 [Rx] levoFLOXacin [Levaquin] 500 mg PO Q48H #5 tablet 09/23/19 [Rx] oxyCODONE 5 mg PO Q6H PRN #32 tablet 09/23/19 [Rx] Insulin Lispro [HumaLOG] 20 unit SUBCUT TIDMEALS 10/23/19 [History] Past Medical History HEENT History: Reports: Cataract, Impaired Vision, Other (See Below) Other HEENT History: HEARING LOSS TOTAL-RIGHT PARTIAL-LEFT, WEARS BILAT HEARING AIDES Cardiovascular History: Reports: Afib, Blood Clots/VTE/DVT, CAD, Heart Failure, Hypertension, VT, Stents, Other (See Below) Other Cardiovascular History: CAROTID ARTERY DISEASE. HEART FAILURE WITH PRESERVED EJECTION FRACTION. HYPERTENSIVE HEART DISEASE. TIA. 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 SUBDURAL HEMATOMA. lorazepam controls headaches from shunt Psychiatric History: Reports: Depression Endocrine/Metabolic History: Reports: Diabetes, Type II, Hypothyroidism, Obesity/BMI 30+, Osteoporosis, Vitamin D Deficiency Hematologic History: Reports: Blood Transfusion(s) Immunologic History: Reports: None Oncologic (Cancer) History: Reports: Malignant Melanoma Dermatologic History: Reports: None - Infectious Disease History Infectious Disease History: Reports: Chicken Pox, Measles, Mumps, Shingles, Other (See Below) Other Infectious Disease History: EXPOSED TO SOMETHING IN [place] IN LATE 70'S THAT AFFECTED LUNGS, CANT RMEMEBER - Past Surgical History Head Surgeries/Procedures: Reports: Shunt HEENT Surgical History: Reports: Adenoidectomy, Cataract Surgery, Tonsillectomy Other HEENT Surgeries/Procedures: PE TUBE PLACEMENT/REMOVAL RIGHT EAR. BILAT CATARACT EXTRACTION WITH LENS IMPLANTS Cardiovascular Surgical History: Reports: Carotid Endarterectomy, Coronary Artery Stent Other Cardiovascular Surgeries/Procedures: IVC FILTER PLACEMENT & REMOVAL Respiratory Surgical History: Reports: None GI Surgical History: Reports: Appendectomy, Colon, Colonoscopy, EGD, Polypectomy, Other (See Below) Other GI Surgeries/Procedures: large colon mostly resected - annotated redundant bowel Female Surgical History: Reports: Breast Biopsy, Cystectomy, Hysterectomy, Salpingo-Oophorectomy, Other (See Below) Other Female Surgeries/Procedures: breast cyst Endocrine Surgical History: Reports: None Neurological Surgical History: Reports: Other (See Below) Other Neurological Surgeries/Procedures: spinal tap and [employer] shunt (2008) Musculoskeletal Surgical History: Reports: None Oncologic Surgical History: Reports: Biopsy of Breast Dermatological Surgical History: Reports: None Social & Family History - Family History Family Medical History: No Pertinent Family History - Tobacco Use Tobacco Use Status *Q: Never Tobacco User Second Hand Smoke Exposure: No - Caffeine Use Caffeine Use: Reports: Coffee Caffeine Use Comment: 1 CUP COFFEE. 2 CUPS TEA - Living Situation & Occupation Living situation: Reports: with Family Occupation: Retired ED ROS GENERAL - Review of Systems Review Of Systems: Comprehensive ROS is negative, except as noted in HPI. ED EXAM, GI/ABD - Physical Exam Exam: See Below Exam Limited By: No Limitations General Appearance: Alert, Mild Distress, Obese Eyes: Bilateral: EOMI Ears: Normal External Exam Nose: Normal Inspection Throat/Mouth: Normal Inspection Head: Atraumatic, Normocephalic Neck: Normal Inspection Respiratory/Chest: No Respiratory Distress, Lungs Clear Cardiovascular: Normal Peripheral Pulses GI/Abdominal Exam: Soft, Tender (general), Abnormal Bowel Sounds (hyperactive) Back Exam: No: CVA Tenderness (L), CVA Tenderness (R) Extremities: Pedal Edema (1-2+) Neurological: Alert, Oriented, Normal Cognition Psychiatric: Normal Affect Skin Exam: Warm, Dry, Intact, Normal Color Course - Vital Signs Last Recorded V/S: Last Vital Signs Temp 98 F 05/09/20 18:12 Pulse 87 05/09/20 18:12 Resp 18 05/09/20 18:12 BP 151/63 H 05/09/20 18:12 Pulse Ox 96 05/09/20 18:12 - Orders/Labs/Meds Labs: Laboratory Tests 05/09/20 05/09/20 05/09/20 Range/Units 20:38 21:37 21:37 WBC 8.7 (5.0-10.0) 10^3/uL RBC 3.90 L (4.2-5.4) 10^6/uL Hgb 13.7 (12.0-16.0) g/dL Hct 40.1 (37.0-47.0) % MCV 102.8 H (80-100) fL MCH 35.1 H (27.0-34.0) pg MCHC 34.2 (33.0-35.0) g/dL Plt Count 149 L (150-450) 10^3/uL Neut % (Auto) 66.8 (42.2-75.2) % Lymph % (Auto) 11.2 L (20.5-50.1) % Burnett % (Auto) 13.5 H (2-8) % Eos % (Auto) 8.0 H (1.0-3.0) % Baso % (Auto) 0.5 (0.0-1.0) % Sodium 135 L (136-145) mmol/L Potassium 3.3 L (3.5-5.1) mmol/L Chloride 96 L (98-107) mmol/L Carbon Dioxide 31 (21-32) mmol/L Anion Gap 11.3 (7-13) mEq/L BUN 39 H (7-18) mg/dL Creatinine 1.91 H (0.55-1.02) mg/dL Est Cr Clr Drug Dosing 18.58 mL/min Estimated GFR (MDRD) 25 BUN/Creatinine Ratio 20.4 (No establ ref range) Glucose 453 H* (74-99) mg/dL POC Glucose 480 H* (83-110) mg/dl Calcium 9.3 (8.5-10.1) mg/dL Total Bilirubin 1.1 H (0.2-1.0) mg/dL AST 35 (15-37) U/L ALT 45 (14-59) U/L Alkaline Phosphatase 351 H (46-116) U/L Total Protein 6.9 (6.4-8.2) g/dL Albumin 2.9 L (3.4-5.0) g/dL Globulin 4.0 Albumin/Globulin Ratio 0.73 03/16/21 Range/Units 22:24 WBC (5.0-10.0) 10^3/uL RBC (4.2-5.4) 10^6/uL Hgb (12.0-16.0) g/dL Hct (37.0-47.0) % MCV (80-100) fL MCH (27.0-34.0) pg MCHC (33.0-35.0) g/dL Plt Count (150-450) 10^3/uL Neut % (Auto) (42.2-75.2) % Lymph % (Auto) (20.5-50.1) % Burnett % (Auto) (2-8) % Eos % (Auto) (1.0-3.0) % Baso % (Auto) (0.0-1.0) % Sodium (136-145) mmol/L Potassium (3.5-5.1) mmol/L Chloride (98-107) mmol/L Carbon Dioxide (21-32) mmol/L Anion Gap (7-13) mEq/L BUN (7-18) mg/dL Creatinine (0.55-1.02) mg/dL Est Cr Clr Drug Dosing mL/min Estimated GFR (MDRD) BUN/Creatinine Ratio (No establ ref range) Glucose (74-99) mg/dL POC Glucose 436 H* (83-110) mg/dl Calcium (8.5-10.1) mg/dL Total Bilirubin (0.2-1.0) mg/dL AST (15-37) U/L ALT (14-59) U/L Alkaline Phosphatase (46-116) U/L Total Protein (6.4-8.2) g/dL Albumin (3.4-5.0) g/dL Globulin Albumin/Globulin Ratio Meds: Medications Discontinued Medications Generic Name Dose Route Start Last Admin Trade Name Freq PRN Reason Stop Dose Admin Dextrose/Water 50 ml 05/09/20 20:44 50% Dextrose In Water 50 Ml Syringe IV ASDIRECTED PRN Hypoglycemia Glucagon 1 mg 05/09/20 20:44 Glucagon,Human Recombinant 1 Mg Vial IM ASDIRECTED PRN Hypoglycemia Insulin Human Regular 10 unit 05/09/20 20:44 05/09/20 21:46 Insulin Regular, Human 100 Units/Ml 3 Ml Vial SUBCUT 05/09/20 20:45 10 units ONETIME ONE Administration - Re-Assessments/Exams Free Text/Narrative Re-Assessment/Exam: 05/10/20 00:23 Enema with goood results. Departure - Departure Time of Disposition: 22:15 Disposition: Home, Self-Care 01 Condition: Good Clinical Impression: IDDM (insulin dependent diabetes mellitus), Hyperglycemia Constipation Qualifiers: Constipation type: unspecified constipation type Qualified Code(s): K59.00 - Constipation, unspecified - Discharge Information *PRESCRIPTION DRUG MONITORING PROGRAM REVIEWED*: No *COPY OF PRESCRIPTION DRUG MONITORING REPORT IN PATIENT JOSE: No Instructions: Constipation, Adult, [id number] Forms: ED Department Discharge Additional Instructions: home medications clinic follow up as needed miralax one capful daily as needed Sepsis Event Note (ED) - Evaluation Sepsis Screening Result: No Definite Risk - Focused Exam Vital Signs: Vital Signs Temp Pulse Resp BP Pulse Ox 05/09/20 18:12 98 F 87 18 151/63 H 96
== END 2020-05-09 22:31 | disposition home or self-care (01) ==
LOC: DL.ED 18:05
DX: K59.00 Constipation, unspecified (principal); E11.65 Type 2 diabetes mellitus with hyperglycemia; I48.91 Unspecified atrial fibrillation; I25.10 Atherosclerotic heart disease of native coronary artery without angina pectoris; I13.0 Hypertensive heart and chronic kidney disease with heart failure and stage 1 through stage 4 chronic kidney disease, or unspecified chronic kidney disease; I50.9 Heart failure, unspecified; I25.2 Old myocardial infarction; J45.909 Unspecified asthma, uncomplicated; N18.30 Chronic kidney disease, stage 3 unspecified; E11.22 Type 2 diabetes mellitus with diabetic chronic kidney disease; Z88.5 Allergy status to narcotic agent; Z88.8 Allergy status to other drugs, medicaments and biological substances; Z88.4 Allergy status to anesthetic agent; Z88.2 Allergy status to sulfonamides; Z88.1 Allergy status to other antibiotic agents; Z79.01 Long term (current) use of anticoagulants; Z91.048 Other nonmedicinal substance allergy status; Z91.041 Radiographic dye allergy status; Z79.899 Other long term (current) drug therapy; Z86.73 Personal history of transient ischemic attack (TIA), and cerebral infarction without residual deficits; Z95.5 Presence of coronary angioplasty implant and graft; Z88.7 Allergy status to serum and vaccine
CPT/HCPCS: 36415; 74019; 80053; 82962; 85025; 99283; 99284; J1815

== ENCOUNTER 2020-06-19 17:00 | Emergency (ER) | payer BC, OTHER ==
--- NOTE | 2020-06-19 17:28 | EDM.PDOC ---
<Rayna Oh - Last Filed: 06/19/20 19:42> ED HPI GENERAL MEDICAL PROBLEM - General Stated Complaint: INR TOO HIGH Time Seen by Provider: 06/19/20 17:27 Source of Information: Reports: Patient, RN, RN Notes Reviewed History Limitations: Reports: No Limitations - History of Present Illness INITIAL COMMENTS - FREE TEXT/NARRATIVE: Patient presents to the ED via personal vehicle from [facility] [address] for complaints of elevated INR. The patient reports a history of chronic AFib for which she takes Warfarin 2.5mg daily. She underwent routine lab work for INR monitoring today; she was found to be supratherapeutic with an INR >8 and was sent to the ED for further evaluation. Upon arrival to this facility she is alert and oriented with no outward signs of active bleeding. She states she has experienced transient epistaxis and dark tarry stools for the four days. She reports she was unconcerned about the stools as she takes iron daily. She denies recent illness, fever, chest pain, palpitations, nausea, vomiting, or diarrhea. She does attest to general malaise, shaking chills, shortness of breath, dysuria, and inability to completely void. She denies tobacco, alcohol, or recreational drug use. She denies a history of COVID infection and has received two doses of COVID vaccination. - Related Data Allergies Allergy/AdvReac Type Severity Reaction Status Date / Time codeine Allergy Severe Rash Verified 05/09/20 18:18 indomethacin [From Indocin] Allergy Severe Other Verified 05/09/20 18:18 indomethacin sodium Allergy Severe Headache Verified 05/09/20 18:18 [From Indocin] pentazocine [From Talwin] Allergy Severe Delusions Verified 05/09/20 18:18 Sulfa (Sulfonamide Allergy Severe Hives Verified 05/09/20 18:18 Antibiotics) sulfamethoxazole Allergy Severe Hives Verified 05/09/20 18:18 [From Bactrim] trimethoprim [From Bactrim] Allergy Severe Hives Verified 05/09/20 18:18 ampicillin Allergy Intermediate Hives Verified 05/09/20 18:18 atorvastatin calcium AdvReac Mild Muscle Verified 05/09/20 18:18 [From Lipitor] Aches duloxetine HCl AdvReac Mild Nausea Verified 05/09/20 18:18 [From Cymbalta] lactose AdvReac Mild Diarrhea Verified 05/09/20 18:18 lisinopril AdvReac Mild Cough Verified 05/09/20 18:18 metoprolol AdvReac Mild Fatigue Verified 05/09/20 18:18 pravastatin AdvReac Mild Muscle Verified 05/09/20 18:18 Aches simvastatin AdvReac Mild Muscle Verified 05/09/20 18:18 Aches spironolactone AdvReac Mild Headache Verified 05/09/20 18:18 tuberculin, purified protein AdvReac Mild Rash Verified 05/09/20 18:18 deriva [tuberculin,purif.prot.deriv.] Iodinated Contrast Media AdvReac Unknown Other Verified 05/09/20 18:18 [Iodinated Contrast Media - IV Dye] clindamycin AdvReac Abdominal Verified 05/09/20 18:18 Pain clonazepam [From Klonopin] AdvReac Other Verified 05/09/20 18:18 hydrochlorothiazide AdvReac Lethargy Verified 05/09/20 18:18 tetanus toxoid, adsorbed AdvReac Other Verified 05/09/20 18:18 zoster vaccine live AdvReac Other Verified 05/09/20 18:18 flannel Allergy Burning Uncoded 05/09/20 18:18 Home Meds: Home Meds LORazepam [Ativan] 1 mg PO BEDTIME PRN 11/25/13 [History] Levothyroxine Sodium [Synthroid] 150 mcg PO ACBREAKFAST 11/25/13 [History] Nitroglycerin [Nitrostat] 0.4 mg SL Q5M PRN MDD 3 11/25/13 [History] Psyllium [Metamucil SF] 1 tbsp PO DAILY PRN 11/25/13 [History] Albuterol [Proventil HFA] 2 inh INH Q6H PRN 03/28/15 [History] Potassium Chloride 30 meq PO TID 03/28/15 [History] Carvedilol [Coreg] 6.25 mg PO BIDMEALS 03/27/16 [History] Cyanocobalamin (Vitamin B12) [Vitamin B12] 100 mcg PO DAILY 03/27/16 [History] Hypromellose/PF [Retaine Hpmc 0.3% Eye Drops] 1 drop EYEBOTH Q4H PRN 03/27/16 [History] Meclizine [Antivert] 25 mg PO QID PRN 03/27/16 [History] Pantoprazole Sodium [Protonix] 40 mg PO DAILY 03/27/16 [History] Docusate Sodium 200 mg PO BID 08/30/16 [History] allopurinoL [Zyloprim] 100 mg PO BID 05/02/17 [History] traMADol [Ultram] 50 mg PO DAILY PRN 05/02/17 [History] Cinnamon Bark [Cinnamon] 1,000 mg PO DAILY 04/10/18 [History] Dextrose Tabs 16 g PO ASDIRECTED PRN 04/10/18 [History] Ondansetron [Zofran] 4 mg PO Q6H PRN 04/10/18 [History] Pantothenic Acid 500 mg PO BEDTIME 04/10/18 [History] aMILoride HCl [Amiloride HCl] 5 mg PO DAILY 04/10/18 [History] metOLazone [Metolazone] 2.5 mg PO .TWICEWEEKLY 04/10/18 [History] amLODIPine Besylate [Amlodipine Besylate] 2.5 mg PO BID 12/12/18 [History] calcitrioL [Calcitriol] 0.25 mcg PO ASDIRECTED 12/12/18 [History] Aspirin 81 mg PO DAILY 09/17/19 [History] Bumetanide [Bumex] 2 mg PO TID 09/17/19 [History] Cholecalciferol (Vitamin D3) [Vitamin D3] 75 mcg PO DAILY 09/17/19 [History] Diclofenac Sodium [Voltaren 1% Gel] 4 gm TOP QID PRN 09/17/19 [History] Isosorbide Mononitrate [Isosorbide Mononitrate ER] 90 mg PO DAILY 09/17/19 [History] Multivitamin [Multivitamins] 1 cap PO DAILY 09/17/19 [History] Rifaximin [Xifaxan] 550 mg PO BID 09/17/19 [History] Warfarin [Coumadin] 2.5 mg PO DAILY 09/17/19 [History] Albuterol [Proventil Neb Soln] 2.5 mg NEB Q6HRRT PRN 09/18/19 [History] Insulin Detemir [Levemir] 50 unit SQ BID 09/18/19 [History] Amitriptyline [Elavil] 20 mg PO BEDTIME tablet 09/23/19 [Rx] Insulin Lispro [HumaLOG] 30 unit SUBCUT TIDMEALS 10/23/19 [History] Lactulose [Chronulac] 3 ml PO TID 06/19/20 [History] levoFLOXacin [Levaquin] 500 mg PO BID 06/19/20 [History] Past Medical History HEENT History: Reports: Cataract, Impaired Vision, Other (See Below) Other HEENT History: HEARING LOSS TOTAL-RIGHT PARTIAL-LEFT, WEARS BILAT HEARING AIDES Cardiovascular History: Reports: Afib, Blood Clots/VTE/DVT, CAD, Heart Failure, Hypertension, [place], Stents, Other (See Below) Other Cardiovascular History: CAROTID ARTERY DISEASE. HEART FAILURE WITH PRESERVED EJECTION FRACTION. HYPERTENSIVE HEART DISEASE. TIA. ACUTE ON CHRONIC DIASTOLIC CONGESTIVE HEART FAILURE Respiratory History: Reports: Asthma, Bronchitis, Recurrent, Sleep Apnea Gastrointestinal History: Reports: Cholelithiasis, Chronic Constipation, GERD, Hemorrhoids, Irritable Bowel Syndrome Other Gastrointestinal History: DENIES CONSTIPATION Genitourinary History: Reports: Chronic Renal Insuffiency, Renal Calculus, Other (See Below) Other Genitourinary History: CKD STAGE III TOUR GUIDE History: Reports: Other (See Below) Other TOUR GUIDE History: UTERUS WAS ADHESED TO HER SPINE Musculoskeletal History: Reports: Back Pain, Chronic, Fracture, Osteoarthritis Other Musculoskeletal History: FRACTURED ARM WHEN SHE WAS YOUNG Neurological History: Reports: Headaches, Chronic, TIA, Other (See Below) Other Neuro History: NORMAL PRESSURE HYDROCEPHALUS. SUBDURAL HEMATOMA. lorazepam controls headaches from shunt Psychiatric History: Reports: Depression Endocrine/Metabolic History: Reports: Diabetes, Type II, Hypothyroidism, Obesi ty/BMI 30+, Osteoporosis, Vitamin D Deficiency Hematologic History: Reports: Blood Transfusion(s) Immunologic History: Reports: None Oncologic (Cancer) History: Reports: Malignant Melanoma Dermatologic History: Reports: None - Infectious Disease History Infectious Disease History: Reports: Chicken Pox, Measles, Mumps, Shingles, Other (See Below) Other Infectious Disease History: EXPOSED TO SOMETHING IN [place] IN LATE 70'S THAT AFFECTED LUNGS, CANT RMEMEBER - Past Surgical History Head Surgeries/Procedures: Reports: Shunt HEENT Surgical History: Reports: Adenoidectomy, Cataract Surgery, Tonsillectomy Other HEENT Surgeries/Procedures: PE TUBE PLACEMENT/REMOVAL RIGHT EAR. BILAT CATARACT EXTRACTION WITH LENS IMPLANTS Cardiovascular Surgical History: Reports: Carotid Endarterectomy, Coronary Artery Stent Other Cardiovascular Surgeries/Procedures: IVC FILTER PLACEMENT & REMOVAL Respiratory Surgical History: Reports: None GI Surgical History: Reports: Appendectomy, Colon, Colonoscopy, EGD, Polypectomy, Other (See Below) Other GI Surgeries/Procedures: large colon mostly resected - annotated redundant bowel Female Surgical History: Reports: Breast Biopsy, Cystectomy, Hysterectomy, S alpingo-Oophorectomy, Other (See Below) Other Female Surgeries/Procedures: breast cyst Endocrine Surgical History: Reports: None Neurological Surgical History: Reports: Other (See Below) Other Neurological Surgeries/Procedures: spinal tap and BAG HANGER shunt (2008) Musculoskeletal Surgical History: Reports: None Oncologic Surgical History: Reports: Biopsy of Breast Dermatological Surgical History: Reports: None Social & Family History - Family History Family Medical History: No Pertinent Family History - Caffeine Use Caffeine Use: Reports: Coffee Caffeine Use Comment: 1 CUP COFFEE. 2 CUPS TEA - Living Situation & Occupation Living situation: Reports: with Family Occupation: Retired ED ROS GENERAL - Review of Systems Review Of Systems: Comprehensive ROS is negative, except as noted in HPI. ED EXAM, GENERAL - Physical Exam Exam: See Below Exam Limited By: No Limitations General Appearance: Alert, No Apparent Distress, Obese Eye Exam: Bilateral Eye: Conjunctival Injection, EOMI, PERRL (3mm) Ears: Normal External Exam, Normal Canal, Hearing Grossly Normal, Normal TMs Ear Exam: Bilateral Ear: Auricle Normal, Canal Normal, TM normal Nose: Normal Inspection, Normal Mucosa, No Blood Throat/Mouth: Normal Inspection, Normal Voice, No Airway Compromise Head: Atraumatic, Normocephalic Neck: Normal Inspection, Supple, Non-Tender, Full Range of Motion. No: Lymphadenopathy (L), Lymphadenopathy (R) Respiratory/Chest: No Respiratory Distress, No Accessory Muscle Use, Chest Non- Tender, Decreased Breath Sounds Cardiovascular: Normal Peripheral Pulses, No Gallop, No JVD, No Murmur, No Rub, Irregularly Irregular. No: No Edema Peripheral Pulses: 1+: Posterior Tibial (L), Posterior Tibial (R), Dorsalis Pedis (L), Dorsalis Pedis (R), 2+: Radial (L), Radial (R) GI/Abdominal: Normal Bowel Sounds, No Abnormal Bruit, No Mass, Pelvis Stable, Distended (Female) Exam: Deferred Rectal (Female) Exam: Normal Exam, Heme + Stool, Hemorrhoids Back Exam: Normal Inspection, Full Range of Motion. No: CVA Tenderness (L), CVA Tenderness (R) Extremities: Normal Range of Motion, Non-Tender, Normal Capillary Refill, Pedal Edema (+2 pitting, bilaterally) Neurological: Alert, Oriented, CN II-XII Intact, Normal Cognition, Normal Gait, No Motor/Sensory Deficits Psychiatric: Normal Affect, Normal Mood Skin Exam: Warm, Dry, Normal Color, No Rash, Wound/Incision (Scattered lineral abrasions scattered to bilateral extremities d/t scratching). No: Ecchymosis, Erythema, Jaundice, Mottled, Pallor, Petechiae Departure - Departure Disposition: DC/Tfer to [facility] 02 Condition: Good Clinical Impression: Shortness of breath, Supratherapeutic INR, Hematest positive stools Abdominal pain Qualifiers: Abdominal location: right upper quadrant Qualified Code(s): R10.11 - Right upper quadrant pain Chronic kidney failure Qualifiers: Chronic kidney disease stage: unspecified stage Qualified Code(s): N18.9 - Chronic kidney disease, unspecified - Discharge Information Forms: Interfacility Transfer GERONIMO <Sonia Griggs - Last Filed: 06/20/20 00:10> Course - Vital Signs Last Recorded V/S: Last Vital Signs Temp 97.2 F 06/19/20 17:19 Pulse 89 06/19/20 17:19 Resp 20 06/19/20 17:19 BP 128/64 06/19/20 17:19 Pulse Ox 95 06/19/20 17:19 - Orders/Labs/Meds Labs: Laboratory Tests 06/19/20 06/19/20 06/19/20 Range/Units 17:23 17:23 17:23 WBC 10.6 H (5.0-10.0) 10^3/uL RBC 3.67 L (4.2-5.4) 10^6/uL Hgb 12.6 (12.0-16.0) g/dL Hct 37.7 (37.0-47.0) % MCV 102.7 H (80-100) fL MCH 34.3 H (27.0-34.0) pg MCHC 33.4 (33.0-35.0) g/dL Plt Count 176 (150-450) 10^3/uL Neut % (Auto) 64.6 (42.2-75.2) % Lymph % (Auto) 11.9 L (20.5-50.1) % [place]orne % (Auto) 15.4 H (2-8) % Eos % (Auto) 7.7 H (1.0-3.0) % Baso % (Auto) 0.4 (0.0-1.0) % PT > 120.0 H D (9.0-12.0) SEC INR > 10.0 H* (0.9-1.2) APTT 66.8 H (22.0-34.0) SEC Sodium 135 L (136-145) mmol/L Potassium 3.2 L (3.5-5.1) mmol/L Chloride 97 L (98-107) mmol/L Carbon Dioxide 30 (21-32) mmol/L Anion Gap 11.2 (7-13) mEq/L BUN 52 H (7-18) mg/dL Creatinine 2.23 H (0.55-1.02) mg/dL Est Cr Clr Drug Dosing TNP Estimated GFR (MDRD) 21 BUN/Creatinine Ratio 23.3 (No establ ref range) Glucose 219 H (70-99) mg/dL Calcium 9.1 (8.5-10.1) mg/dL Total Bilirubin 1.1 H (0.2-1.0) mg/dL AST 39 H (15-37) U/L ALT 47 (14-59) U/L Alkaline Phosphatase 310 H (46-116) U/L Total Protein 6.6 (6.4-8.2) g/dL Albumin 2.8 L (3.4-5.0) g/dL Globulin 3.8 Albumin/Globulin Ratio 0.74 SARS CoV-2 RNA Rapid DONG (NEGATIVE) 06/19/20 Range/Units 19:34 WBC (5.0-10.0) 10^3/uL RBC (4.2-5.4) 10^6/uL Hgb (12.0-16.0) g/dL Hct (37.0-47.0) % MCV (80-100) fL MCH (27.0-34.0) pg MCHC (33.0-35.0) g/dL Plt Count (150-450) 10^3/uL Neut % (Auto) (42.2-75.2) % Lymph % (Auto) (20.5-50.1) % [place] % (Auto) (2-8) % Eos % (Auto) (1.0-3.0) % Baso % (Auto) (0.0-1.0) % PT (9.0-12.0) SEC INR (0.9-1.2) APTT (22.0-34.0) SEC Sodium (136-145) mmol/L Potassium (3.5-5.1) mmol/L Chloride (98-107) mmol/L Carbon Dioxide (21-32) mmol/L Anion Gap (7-13) mEq/L BUN (7-18) mg/dL Creatinine (0.55-1.02) mg/dL Est Cr Clr Drug Dosing Estimated GFR (MDRD) BUN/Creatinine Ratio (No establ ref range) Glucose (70-99) mg/dL Calcium (8.5-10.1) mg/dL Total Bilirubin (0.2-1.0) mg/dL AST (15-37) U/L ALT (14-59) U/L Alkaline Phosphatase (46-116) U/L Total Protein (6.4-8.2) g/dL Albumin (3.4-5.0) g/dL Globulin Albumin/Globulin Ratio SARS CoV-2 RNA Rapid DONG Negative (NEGATIVE) Meds: Medications Discontinued Medications Generic Name Dose Route Start Last Admin Trade Name Freq PRN Reason Stop Dose Admin Phytonadione 5 mg/ Sodium 50.5 mls @ 100 mls/hr 06/19/20 18:42 06/19/20 19:30 Chloride IV 06/19/20 19:12 100 mls/hr NOW ONE Administration Departure - Departure Time of Disposition: 20:38 - Discharge Information *PRESCRIPTION DRUG MONITORING PROGRAM REVIEWED*: No *COPY OF PRESCRIPTION DRUG MONITORING REPORT IN PATIENT JOSE: No Sepsis Event Note (ED) - Focused Exam Vital Signs: Vital Signs Temp Pulse Resp BP Pulse Ox 06/19/20 17:19 97.2 F 89 20 128/64 95
[2020-06-19 17:54] LABS: ANION GAP 11.2 mEq/L (7-13); CHLORIDE,CL 97 mmol/L (98-107); SODIUM,NA 135 mmol/L (136-145)
[2020-06-19 18:18] VITALS: BP 128/64; PULSE 89
[2020-06-19 18:36] LABS: PTT,PARTIAL THROMBOPLSTIN TIME 66.8 SEC (22.0-34.0)
[2020-06-19] MEDS ORDERED: Phytonadione 5 MG in Sodium Chloride 0.9% 50 ML IV ONE (18:42)
--- NOTE | 2020-06-19 20:39 | CT ---
PROCEDURE INFORMATION: Exam: CT Abdomen And Pelvis Without Contrast Exam date and time: 06/19/2020 7:36 PM Age: 80 years old Clinical indication: Abdominal pain; Additional info: Llq pain; R/O diverticulitis TECHNIQUE: Imaging protocol: Computed tomography of the abdomen and pelvis without contrast. Radiation optimization: All CT scans at this facility use at least one of these dose optimization techniques: automated exposure control; mA and/or kV adjustment per patient size (includes targeted exams where dose is matched to clinical indication); or iterative reconstruction. COMPARISON: CT Abdomen Pelvis wo Cont 12/12/2018 4:53 PM FINDINGS: Lungs: The visualized portions of the lung bases are normal. Heart: There is calcification of the mitral valve annulus. The heart is not enlarged. Liver: The liver has a nodular contour consistent with cirrhosis. Gallbladder and bile ducts: There has been a cholecystectomy. Pancreas: The pancreas is normal. Spleen: There is mild nonspecific splenomegaly. Adrenal glands: The adrenal glands are normal. Kidneys and ureters: There is a 5.6 cm exophytic simple appearing cyst projecting off the upper pole of the right kidney. There is a smaller exophytic cyst projecting from the lateral margin of the right kidney. There is no hydronephrosis. The ureters are normal. Stomach and bowel: There appears to been a partial right colectomy. Appendix: There has been an appendectomy. Intraperitoneal space: No evidence of intraperitoneal free air. Vasculature: The vasculature demonstrates diffuse moderate atherosclerotic calcification. Lymph nodes: No pathologic lymph node enlargement is demonstrated. Urinary bladder: The bladder is normal. Reproductive: The uterus is not visualized, and may be surgically absent. Bones/joints: Marginal osteophytes are noted at multiple levels in the spine. Soft tissues: There is a small bowel containing ventral hernia without evidence of obstruction there appears to be a ventriculoperitoneal shunt tube position with its tip under the anterior abdominal wall to the left of midline at the level of the umbilicus. IMPRESSION: 1. Hepatic contour suggests cirrhosis. 2. Mildly enlarged spleen. 3. No acute abnormality. COMMENTS: Consistent with the [employer]'s Incidental Findings Committee white paper (J Am Kerry Radiol 2018): Any incidental renal lesion less than 1 cm or classified as too small to characterize, or any incidental cystic renal lesion characterized as simple-appearing, is likely benign. No follow-up imaging is recommended for these lesions per consensus recommendations based on imaging criteria.
--- NOTE | 2020-06-19 20:40 | CR ---
PROCEDURE INFORMATION: Exam: XR Chest Exam date and time: 06/19/2020 7:40 PM Age: 80 years old Clinical indication: Shortness of breath TECHNIQUE: Imaging protocol: XR of the chest. Views: 1 view. COMPARISON: CR Chest 2V 10/23/2019 9:59 AM FINDINGS: Tubes, catheters and devices: A right jugular central venous catheter is present, with its tip projecting in the plane of the right atrium. Lungs: The pulmonary vasculature is not engorged. The lungs are normal. Pleural spaces: There are no pleural effusions present. Heart/Mediastinum: The heart demonstrates mild diffuse enlargement. Bones/joints: Unremarkable IMPRESSION: Mild cardiomegaly.
== END 2020-06-19 20:38 ==
LOC: DL.ED 17:00
DX: I13.0 Hypertensive heart and chronic kidney disease with heart failure and stage 1 through stage 4 chronic kidney disease, or unspecified chronic kidney disease (principal); I50.9 Heart failure, unspecified; I25.2 Old myocardial infarction; K21.9 Gastro-esophageal reflux disease without esophagitis; N18.30 Chronic kidney disease, stage 3 unspecified; J45.909 Unspecified asthma, uncomplicated; E11.22 Type 2 diabetes mellitus with diabetic chronic kidney disease; E03.9 Hypothyroidism, unspecified; I25.10 Atherosclerotic heart disease of native coronary artery without angina pectoris; R10.11 Right upper quadrant pain; R79.1 Abnormal coagulation profile; R19.5 Other fecal abnormalities; I48.91 Unspecified atrial fibrillation; Z88.5 Allergy status to narcotic agent; Z88.8 Allergy status to other drugs, medicaments and biological substances; Z79.01 Long term (current) use of anticoagulants; Z79.899 Other long term (current) drug therapy; Z88.2 Allergy status to sulfonamides; Z88.1 Allergy status to other antibiotic agents; Z79.82 Long term (current) use of aspirin; Z91.041 Radiographic dye allergy status; Z88.7 Allergy status to serum and vaccine; Z20.822 Contact with and (suspected) exposure to COVID-19
CPT/HCPCS: 36415; 71045; 74176; 80053; 82272; 85025; 85610; 85730; 96365; 99284; 99285-25; J3430; U0002

== ENCOUNTER 2020-12-07 08:23 | Emergency (ER) | payer BC, OTHER ==
[2020-12-07 08:28] VITALS: BP 169/69; PULSE 103
[2020-12-07] MEDS ORDERED: Ondansetron 4 MG/2 ML SDV IVPUSH ONE (08:52)
--- NOTE | 2020-12-07 09:11 | EDM.PDOC ---
ED HPI GENERAL MEDICAL PROBLEM - General Chief Complaint: Gastrointestinal Problem Stated Complaint: AMBULANCE Time Seen by Provider: 12/07/20 08:40 Source of Information: Reports: Patient, EMS, Old Records, RN, RN Notes Reviewed History Limitations: Reports: No Limitations - History of Present Illness INITIAL COMMENTS - FREE TEXT/NARRATIVE: Yuliet is an 80 y/o female who presents to the ED via [facility] with complaints of nausea and constipation. The patient reports her nausea began four days ago and has maintained in severity despite frequent doses of Zofran ODT. Additionally, she reports her last BM was three days ago for which she has taken no medication. She denies recent illness, fever, shaking chills, dyspepsia, abdominal pain, vomiting, hematemesis, dysuria, hematuria, or melena. She notes her last INR was 3.1, yesterday. She has received full vaccination for COVID. She denies tobacco, alcohol, or recreational drug use. Lower Abdomen Pain Score (Numeric/FACES): 5 - Related Data Allergies Allergy/AdvReac Type Severity Reaction Status Date / Time codeine Allergy Severe Rash Verified 12/07/20 08:26 indomethacin [From Indocin] Allergy Severe Other Verified 12/07/20 08:26 indomethacin sodium Allergy Severe Headache Verified 12/07/20 08:26 [From Indocin] pentazocine [From Talwin] Allergy Severe Delusions Verified 12/07/20 08:26 Sulfa (Sulfonamide Allergy Severe Hives Verified 12/07/20 08:26 Antibiotics) sulfamethoxazole Allergy Severe Hives Verified 12/07/20 08:26 [From Bactrim] trimethoprim [From Bactrim] Allergy Severe Hives Verified 12/07/20 08:26 ampicillin Allergy Intermediate Hives Verified 12/07/20 08:26 atorvastatin calcium AdvReac Mild Muscle Verified 12/07/20 08:26 [From Lipitor] Aches duloxetine HCl AdvReac Mild Nausea Verified 12/07/20 08:26 [From Cymbalta] lactose AdvReac Mild Diarrhea Verified 12/07/20 08:26 lisinopril AdvReac Mild Cough Verified 12/07/20 08:26 metoprolol AdvReac Mild Fatigue Verified 12/07/20 08:26 pravastatin AdvReac Mild Muscle Verified 12/07/20 08:26 Aches simvastatin AdvReac Mild Muscle Verified 12/07/20 08:26 Aches spironolactone AdvReac Mild Headache Verified 12/07/20 08:26 tuberculin, purified protein AdvReac Mild Rash Verified 12/07/20 08:26 deriva [tuberculin,purif.prot.deriv.] Iodinated Contrast Media AdvReac Unknown Other Verified 12/07/20 08:26 [Iodinated Contrast Media - IV Dye] clindamycin AdvReac Abdominal Verified 12/07/20 08:26 Pain clonazepam [From Klonopin] AdvReac Other Verified 12/07/20 08:26 hydrochlorothiazide AdvReac Lethargy Verified 12/07/20 08:26 tetanus toxoid, adsorbed AdvReac Other Verified 12/07/20 08:26 zoster vaccine live AdvReac Other Verified 12/07/20 08:26 flannel Allergy Burning Uncoded 12/07/20 08:26 Home Meds: Home Meds LORazepam [Ativan] 1 mg PO BEDTIME PRN 11/25/13 [History] Levothyroxine Sodium [Synthroid] 150 mcg PO ACBREAKFAST 11/25/13 [History] Nitroglycerin [Nitrostat] 0.4 mg SL Q5M PRN MDD 3 11/25/13 [History] Psyllium [Metamucil SF] 1 tbsp PO DAILY PRN 11/25/13 [History] Albuterol [Proventil HFA] 2 inh INH Q6H PRN 03/28/15 [History] Potassium Chloride 30 meq PO TID 03/28/15 [History] Carvedilol [Coreg] 6.25 mg PO BIDMEALS 03/27/16 [History] Cyanocobalamin (Vitamin B12) [Vitamin B12] 100 mcg PO DAILY 03/27/16 [History] Hypromellose/PF [Retaine Hpmc 0.3% Eye Drops] 1 drop EYEBOTH Q4H PRN 03/27/16 [H istory] Meclizine [Antivert] 25 mg PO QID PRN 03/27/16 [History] Pantoprazole Sodium [Protonix] 40 mg PO DAILY 03/27/16 [History] Docusate Sodium 200 mg PO BID 08/30/16 [History] allopurinoL [Zyloprim] 100 mg PO BID 05/02/17 [History] traMADol [Ultram] 50 mg PO DAILY PRN 05/02/17 [History] Cinnamon Bark [Cinnamon] 1,000 mg PO DAILY 04/10/18 [History] Dextrose Tabs 16 g PO ASDIRECTED PRN 04/10/18 [History] Ondansetron [Zofran] 4 mg PO Q6H PRN 04/10/18 [History] Pantothenic Acid 500 mg PO BEDTIME 04/10/18 [History] aMILoride HCl [Amiloride HCl] 5 mg PO DAILY 04/10/18 [History] metOLazone [Metolazone] 2.5 mg PO .TWICEWEEKLY 04/10/18 [History] amLODIPine Besylate [Amlodipine Besylate] 2.5 mg PO BID 12/12/18 [History] calcitrioL [Calcitriol] 0.25 mcg PO ASDIRECTED 12/12/18 [History] Aspirin 81 mg PO DAILY 09/17/19 [History] Bumetanide [Bumex] 2 mg PO TID 09/17/19 [History] Cholecalciferol (Vitamin D3) [Vitamin D3] 75 mcg PO DAILY 09/17/19 [History] Diclofenac Sodium [Voltaren 1% Gel] 4 gm TOP QID PRN 09/17/19 [History] Isosorbide Mononitrate [Isosorbide Mononitrate ER] 90 mg PO DAILY 09/17/19 [History] Multivitamin [Multivitamins] 1 cap PO DAILY 09/17/19 [History] Rifaximin [Xifaxan] 550 mg PO BID 09/17/19 [History] Warfarin [Coumadin] 2.5 mg PO DAILY 09/17/19 [History] Albuterol [Proventil Neb Soln] 2.5 mg NEB Q6HRRT PRN 09/18/19 [History] Insulin Detemir [Levemir] 50 unit SQ BID 09/18/19 [History] Amitriptyline [Elavil] 20 mg PO BEDTIME tablet 09/23/19 [Rx] Insulin Lispro [HumaLOG] 30 unit SUBCUT TIDMEALS 10/23/19 [History] Lactulose [Chronulac] 3 ml PO TID 06/19/20 [History] levoFLOXacin [Levaquin] 500 mg PO BID 06/19/20 [History] Past Medical History HEENT History: Reports: Cataract, Impaired Vision, Other (See Below) Other HEENT History: HEARING LOSS TOTAL - RIGHT PARTIAL - LEFT, WEARS BILAT HEARING AIDES Cardiovascular History: Reports: Afib, Blood Clots/VTE/DVT, CAD, Heart Failure, Hypertension, NE, Stents, Other (See Below) Other Cardiovascular History: CAROTID ARTERY DISEASE. HEART FAILURE WITH PRESERVED EJECTION FRACTION. HYPERTENSIVE HEART DISEASE. TIA. 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 SUBDURAL HEMATOMA. lorazepam controls headaches from shunt Psychiatric History: Reports: Depression Endocrine/Metabolic History: Reports: Diabetes, Type II, Hypothyroidism, Obesity/BMI 30+, Osteoporosis, Vitamin D Deficiency Hematologic History: Reports: Blood Transfusion(s), Iron Deficiency Immunologic History: Reports: None Oncologic (Cancer) History: Reports: Malignant Melanoma Dermatologic History: Reports: None - Infectious Disease History Infectious Disease History: Reports: Chicken Pox, Measles, Mumps, Shingles, Other (See Below) Other Infectious Disease History: EXPOSED TO SOMETHING IN [place] IN LATE 70'S THAT AFFECTED LUNGS, CANT REMEMBER - Past Surgical History Head Surgeries/Procedures: Reports: Shunt HEENT Surgical History: Reports: Adenoidectomy, Cataract Surgery, Tonsillectomy Other HEENT Surgeries/Procedures: PE TUBE PLACEMENT/REMOVAL RIGHT EAR. BILAT CATARACT EXTRACTION WITH LENS IMPLANTS Cardiovascular Surgical History: Reports: Carotid Endarterectomy, Coronary Artery Stent Other Cardiovascular Surgeries/Procedures: IVC FILTER PLACEMENT & REMOVAL Respiratory Surgical History: Reports: None GI Surgical History: Reports: Appendectomy, Colon, Colonoscopy, EGD, Polypectomy, Other (See Below) Other GI Surgeries/Procedures: large colon mostly resected - annotated redundant bowel Female Surgical History: Reports: Breast Biopsy, Cystectomy, Hysterectomy, Salpingo-Oophorectomy, Other (See Below) Other Female Surgeries/Procedures: breast cyst Endocrine Surgical History: Reports: None Neurological Surgical History: Reports: Other (See Below) Other Neurological Surgeries/Procedures: spinal tap and SHADER AND TONER shunt (2008) Musculoskeletal Surgical History: Reports: None Oncologic Surgical History: Reports: Biopsy of Breast Dermatological Surgical History: Reports: None Social & Family History - Family History Family Medical History: No Pertinent Family History - Tobacco Use Tobacco Use Status *Q: Never Tobacco User Second Hand Smoke Exposure: No - Caffeine Use Caffeine Use: Reports: Coffee, Tea Caffeine Use Comment: 1 CUP COFFEE. 2 CUPS TEA - Recreational Drug Use Recreational Drug Use: No - Living Situation & Occupation Living situation: Reports: with Family Occupation: Retired ED ROS GENERAL - Review of Systems Review Of Systems: Comprehensive ROS is negative, except as noted in HPI. ED EXAM, GI/ABD - Physical Exam Exam: See Below Exam Limited By: No Limitations General Appearance: Alert, No Apparent Distress, Obese Eyes: Bilateral: Normal Appearance, EOMI Ears: Normal External Exam, Hearing Grossly Normal Nose: Normal Inspection, Normal Mucosa, No Blood Throat/Mouth: Normal Inspection, Normal Oropharynx, Normal Voice, No Airway Compromise Head: Atraumatic, Normocephalic Neck: Normal Inspection, Supple, Non-Tender, Full Range of Motion Respiratory/Chest: No Respiratory Distress, Lungs Clear, Normal Breath Sounds, No Accessory Muscle Use, Chest Non-Tender, Other (On 2L O2 via NC at baseline) Cardiovascular: Normal Peripheral Pulses, Regular Rate, Rhythm, No Edema, No Gallop, No JVD, No Murmur, No Rub GI/Abdominal Exam: Normal Bowel Sounds, Soft, No Distention, No Abnormal Bruit, No Mass, Pelvis Stable, Tender (To palpation of right upper and lower quadrant) (Female) Exam: Deferred Rectal (Female) Exam: Deferred Back Exam: Normal Inspection, Full Range of Motion. No: CVA Tenderness (L), CVA Tenderness (R) Extremities: Normal Inspection, Normal Range of Motion, No Pedal Edema, Normal Capillary Refill, Arm Pain (Chronic to left upper extremity, in sling; Hx of repeat fracture and dislocation). No: Joint Swelling Neurological: Alert, Oriented, CN II-XII Intact, Normal Cognition, Normal Gait, No Motor/Sensory Deficits. No: Memory Loss Remote Events, Memory Loss Recent Events Psychiatric: Tearful Skin Exam: Warm, Dry, Intact, Normal Color, No Rash. No: Cyanosis, Jaundice, Mottled, Pallor Course - Vital Signs Last Recorded V/S: Last Vital Signs Temp 98 F 12/07/20 08:27 Pulse 103 H 12/07/20 08:27 Resp 20 12/07/20 08:27 BP 169/69 H 12/07/20 08:27 Pulse Ox 88 L 12/07/20 08:27 - Orders/Labs/Meds Labs: Laboratory Tests 12/07/20 12/07/20 12/07/20 Range/Units 09:05 09:05 09:05 WBC 10.5 H (5.0-10.0) 10^3/uL RBC 3.19 L (4.2-5.4) 10^6/uL Hgb 10.6 L D (12.0-16.0) g/dL Hct 33.0 L (37.0-47.0) % MCV 103.4 H (80-100) fL MCH 33.2 (27.0-34.0) pg MCHC 32.1 L (33.0-35.0) g/dL Plt Count 155 (150-450) 10^3/uL Neut % (Auto) 66.2 (42.2-75.2) % Lymph % (Auto) 9.7 L (20.5-50.1) % [place] % (Auto) 15.6 H (2-8) % Eos % (Auto) 8.0 H (1.0-3.0) % Baso % (Auto) 0.5 (0.0-1.0) % PT 29.2 H D (9.0-12.0) SEC INR 3.0 H (0.9-1.2) APTT 45.3 H (22.0-34.0) SEC Sodium 136 (136-145) mmol/L Potassium 4.3 (3.5-5.1) mmol/L Chloride 99 (98-107) mmol/L Carbon Dioxide 29 (21-32) mmol/L Anion Gap 12.3 (7-13) mEq/L BUN 48 H (7-18) mg/dL Creatinine 2.05 H (0.55-1.02) mg/dL Est Cr Clr Drug Dosing 17.31 mL/min Estimated GFR (MDRD) 23 BUN/Creatinine Ratio 23.4 (No establ ref range) Glucose 285 H (70-99) mg/dL Lactic Acid (0.4-2.0) mmol/L Calcium 9.0 (8.5-10.1) mg/dL Magnesium 2.1 (1.8-2.4) mg/dL Total Bilirubin 1.1 H (0.2-1.0) mg/dL AST 34 (15-37) U/L ALT 36 (14-59) U/L Alkaline Phosphatase 416 H (46-116) U/L C-Reactive Protein 2.3 H (0.0-0.9) mg/dL B-Natriuretic Peptide 347 H (0-100) pg/ml Total Protein 6.6 (6.4-8.2) g/dL Albumin 2.8 L (3.4-5.0) g/dL Globulin 3.8 Albumin/Globulin Ratio 0.74 Amylase 36 (25-115) U/L Lipase 139 (73-393) U/L Urine Color (YELLOW) Urine Appearance (CLEAR) Urine pH (5.0-9.0) Ur Specific [place] (1.005-1.030) Urine Protein (NEGATIVE) Urine Glucose (UA) (NEGATIVE) Urine Ketones (NEGATIVE) Urine Occult Blood (NEGATIVE) Urine Nitrite (NEGATIVE) Urine Bilirubin (NEGATIVE) Urine Urobilinogen (0.2-1.0) mg/dL Ur Leukocyte Esterase (NEGATIVE) Urine RBC (0-5) /HPF Urine WBC (0-5/HPF) /HPF Ur Epithelial Cells (NOT SEEN) /HPF Amorphous Sediment (NOT SEEN) /HPF Urine Bacteria (0-FEW/HPF) /HPF Urine Mucus (NOT SEEN) /LPF 12/07/20 12/07/20 Range/Units 09:05 10:25 WBC (5.0-10.0) 10^3/uL RBC (4.2-5.4) 10^6/uL Hgb (12.0-16.0) g/dL Hct (37.0-47.0) % MCV (80-100) fL MCH (27.0-34.0) pg MCHC (33.0-35.0) g/dL Plt Count (150-450) 10^3/uL Neut % (Auto) (42.2-75.2) % Lymph % (Auto) (20.5-50.1) % [place] % (Auto) (2-8) % Eos % (Auto) (1.0-3.0) % Baso % (Auto) (0.0-1.0) % PT (9.0-12.0) SEC INR (0.9-1.2) APTT (22.0-34.0) SEC Sodium (136-145) mmol/L Potassium (3.5-5.1) mmol/L Chloride (98-107) mmol/L Carbon Dioxide (21-32) mmol/L Anion Gap (7-13) mEq/L BUN (7-18) mg/dL Creatinine (0.55-1.02) mg/dL Est Cr Clr Drug Dosing mL/min Estimated GFR (MDRD) BUN/Creatinine Ratio (No establ ref range) Glucose (70-99) mg/dL Lactic Acid 1.0 (0.4-2.0) mmol/L Calcium (8.5-10.1) mg/dL Magnesium (1.8-2.4) mg/dL Total Bilirubin (0.2-1.0) mg/dL AST (15-37) U/L ALT (14-59) U/L Alkaline Phosphatase (46-116) U/L C-Reactive Protein (0.0-0.9) mg/dL B-Natriuretic Peptide (0-100) pg/ml Total Protein (6.4-8.2) g/dL Albumin (3.4-5.0) g/dL Globulin Albumin/Globulin Ratio Amylase (25-115) U/L Lipase (73-393) U/L Urine Color Yellow (YELLOW) Urine Appearance Slightly cloudy (CLEAR) Urine pH 5.5 (5.0-9.0) Ur Specific [place] 1.015 (1.005-1.030) Urine Protein Trace H (NEGATIVE) Urine Glucose (UA) Negative (NEGATIVE) Urine Ketones Negative (NEGATIVE) Urine Occult Blood Trace-intact H (NEGATIVE) Urine Nitrite Negative (NEGATIVE) Urine Bilirubin Negative (NEGATIVE) Urine Urobilinogen 0.2 (0.2-1.0) mg/dL Ur Leukocyte Esterase Negative (NEGATIVE) Urine RBC 10-20 H (0-5) /HPF Urine WBC 0-5 (0-5/HPF) /HPF Ur Epithelial Cells Few (NOT SEEN) /HPF Amorphous Sediment Rare (NOT SEEN) /HPF Urine Bacteria Few (0-FEW/HPF) /HPF Urine Mucus Few H (NOT SEEN) /LPF Meds: Medications Discontinued Medications Generic Name Dose Route Start Last Admin Trade Name Freq PRN Reason Stop Dose Admin Ondansetron HCl 4 mg 12/07/20 08:52 12/07/20 09:13 Ondansetron 4 Mg/2 Ml Sdv IVPUSH 12/07/20 08:53 4 mg ONETIME ONE Administration - Re-Assessments/Exams Free Text/Narrative Re-Assessment/Exam: 12/07/20 Findings of examination, lab work, and imaging reviewed with patient. Patient had large bowel movement while in the ED. Supportive cares discussed. Patient instructed to follow up with primary care provider regarding todays visit. Red flag signs and symptoms which would warrant immediate reevaluation reviewed. Patient verbalized understanding and agreement with the plan of care. Departure - Departure Time of Disposition: 11:02 Disposition: Home, Self-Care 01 Condition: Good Clinical Impression: Hyperglycemia Constipation Qualifiers: Constipation type: unspecified constipation type Qualified Code(s): K59.00 - Constipation, unspecified - Discharge Information *PRESCRIPTION DRUG MONITORING PROGRAM REVIEWED*: Not Applicable *COPY OF PRESCRIPTION DRUG MONITORING REPORT IN PATIENT JOSE: Not Applicable Instructions: Constipation, Adult Forms: ED Department Discharge Additional Instructions: 1.) Increase your daily water intake. 2.) Increase intake of fruits and vegetables. 3.) Follow up with your primary care provider in 5-7 days regarding today's visit. Sepsis Event Note (ED) - Evaluation Sepsis Screening Result: No Definite Risk - Focused Exam Vital Signs: Vital Signs Temp Pulse Resp BP Pulse Ox 12/07/20 08:27 98 F 103 H 20 169/69 H 88 L
[2020-12-07 09:30] LABS: ANION GAP 12.3 mEq/L (7-13)
[2020-12-07 09:34] LABS: PTT,PARTIAL THROMBOPLSTIN TIME 45.3 SEC (22.0-34.0)
--- NOTE | 2020-12-07 10:08 | CR ---
EXAMINATION: Abdomen 4V AP Flat Upright SEX: Female AGE: 80 years CLINICAL HISTORY: 80-year-old nauseated female (no BM for 3 days) reported on CT 19 June 2020 to have "probable cirrhosis; mildly enlarged spleen". Appendectomy, cholecystectomy, THIRD OFFICER shunt. Renal cysts. Interpretation: 1. Obese patient with ventriculoperitoneal shunt extending down to the RLQ. 2. Large cardiac silhouette and generalized mild pulmonary vascular congestion. Small pleural effusion on the left. 3. Cluster of surgical sutures right and left abdomen. 4. Some stool in the descending left colon but no signs of mechanical bowel obstruction. No pathologic air-fluid levels. 5. No abdominal soft tissue mass. No foreign bodies. No free intraperitoneal air. 6. Chronic hypertrophic arthritic changes lower thoracic and upper lumbar spine. CONCLUSION: Cardiomegaly. Minimal obstipation. Evidence of numerous abdominal surgeries. No abdominal mass, free intraperitoneal air or signs of mechanical bowel obstruction.
== END 2020-12-07 11:10 | disposition home or self-care (01) ==
LOC: DL.ED 08:23
DX: K59.00 Constipation, unspecified (principal); E11.65 Type 2 diabetes mellitus with hyperglycemia; E11.22 Type 2 diabetes mellitus with diabetic chronic kidney disease; I13.0 Hypertensive heart and chronic kidney disease with heart failure and stage 1 through stage 4 chronic kidney disease, or unspecified chronic kidney disease; N18.30 Chronic kidney disease, stage 3 unspecified; I50.9 Heart failure, unspecified; I25.2 Old myocardial infarction; I48.91 Unspecified atrial fibrillation; K21.9 Gastro-esophageal reflux disease without esophagitis; E03.9 Hypothyroidism, unspecified; E66.9 Obesity, unspecified; I25.10 Atherosclerotic heart disease of native coronary artery without angina pectoris; Z68.42 Body mass index [BMI] 45.0-49.9, adult; Z88.5 Allergy status to narcotic agent; Z88.8 Allergy status to other drugs, medicaments and biological substances; Z88.0 Allergy status to penicillin; Z88.2 Allergy status to sulfonamides; Z91.041 Radiographic dye allergy status; Z88.1 Allergy status to other antibiotic agents; Z91.011 Allergy to milk products; Z79.899 Other long term (current) drug therapy; Z79.4 Long term (current) use of insulin; Z86.73 Personal history of transient ischemic attack (TIA), and cerebral infarction without residual deficits
CPT/HCPCS: 36415; 74019; 80053; 81001; 82150; 83605; 83690; 83735; 83880; 85025; 85610; 85730; 86140; 96374; 99284-25; J2405

== ENCOUNTER 2020-12-08 13:38 | Emergency (ER) | payer BC, OTHER ==
[2020-12-08] MEDS ORDERED: Pantoprazole 40 MG Vial IVPUSH ONE (14:03)
[2020-12-08 14:37] LABS: ANION GAP 16.6 mEq/L (7-13); CHLORIDE,CL 99 mmol/L (98-107); SODIUM,NA 136 mmol/L (136-145)
[2020-12-08 14:38] LABS: PTT,PARTIAL THROMBOPLSTIN TIME 41.8 SEC (22.0-34.0)
--- NOTE | 2020-12-08 15:01 | EDM.PDOC ---
ED HPI GENERAL MEDICAL PROBLEM - General Chief Complaint: General Stated Complaint: AMBULANCE Time Seen by Provider: 12/08/20 14:00 Source of Information: Reports: Patient, RN, RN Notes Reviewed History Limitations: Reports: No Limitations - History of Present Illness INITIAL COMMENTS - FREE TEXT/NARRATIVE: Yuliet is an 80 y/o female who presents to the ED via [facility] from [facility] for elevated INR and nausea. The patient presented to the [facility] this morning due to right nare epistaxis and general malaise; she was found to have an INR of 5 and was subsequently transferred to this facility. Upon arrival the patient's GCS is 15, she is alert and oriented. The patient states her epistaxis started this morning as well as two bouts of dark, tarry stools. Additionally, she notes palpitations and shortness of breath. She denies vision changes, dizziness, chest pain/pressure, dyspepsia, abdominal pain, nausea, vomiting, hematemesis, dysuria, hematuria, or hematochezia. - Related Data Allergies Allergy/AdvReac Type Severity Reaction Status Date / Time codeine Allergy Severe Rash Verified 12/07/20 08:26 indomethacin [From Indocin] Allergy Severe Other Verified 12/07/20 08:26 indomethacin sodium Allergy Severe Headache Verified 12/07/20 08:26 [From Indocin] pentazocine [From Talwin] Allergy Severe Delusions Verified 12/07/20 08:26 Sulfa (Sulfonamide Allergy Severe Hives Verified 12/07/20 08:26 Antibiotics) sulfamethoxazole Allergy Severe Hives Verified 12/07/20 08:26 [From Bactrim] trimethoprim [From Bactrim] Allergy Severe Hives Verified 12/07/20 08:26 ampicillin Allergy Intermediate Hives Verified 12/07/20 08:26 atorvastatin calcium AdvReac Mild Muscle Verified 12/07/20 08:26 [From Lipitor] Aches duloxetine HCl AdvReac Mild Nausea Verified 12/07/20 08:26 [From Cymbalta] lactose AdvReac Mild Diarrhea Verified 12/07/20 08:26 lisinopril AdvReac Mild Cough Verified 12/07/20 08:26 metoprolol AdvReac Mild Fatigue Verified 12/07/20 08:26 pravastatin AdvReac Mild Muscle Verified 12/07/20 08:26 Aches simvastatin AdvReac Mild Muscle Verified 12/07/20 08:26 Aches spironolactone AdvReac Mild Headache Verified 12/07/20 08:26 tuberculin, purified protein AdvReac Mild Rash Verified 12/07/20 08:26 deriva [tuberculin,purif.prot.deriv.] Iodinated Contrast Media AdvReac Unknown Other Verified 12/07/20 08:26 [Iodinated Contrast Media - IV Dye] clindamycin AdvReac Abdominal Verified 12/07/20 08:26 Pain clonazepam [From Klonopin] AdvReac Other Verified 12/07/20 08:26 hydrochlorothiazide AdvReac Lethargy Verified 12/07/20 08:26 tetanus toxoid, adsorbed AdvReac Other Verified 12/07/20 08:26 zoster vaccine live AdvReac Other Verified 12/07/20 08:26 flannel Allergy Burning Uncoded 12/07/20 08:26 Home Meds: Home Meds LORazepam [Ativan] 1 mg PO BEDTIME PRN 11/25/13 [History] Levothyroxine Sodium [Synthroid] 150 mcg PO ACBREAKFAST 11/25/13 [History] Nitroglycerin [Nitrostat] 0.4 mg SL Q5M PRN MDD 3 11/25/13 [History] Psyllium [Metamucil SF] 1 tbsp PO DAILY PRN 11/25/13 [History] Albuterol [Proventil HFA] 2 inh INH Q6H PRN 03/28/15 [History] Potassium Chloride 30 meq PO TID 03/28/15 [History] Carvedilol [Coreg] 6.25 mg PO BIDMEALS 03/27/16 [History] Cyanocobalamin (Vitamin B12) [Vitamin B12] 100 mcg PO DAILY 03/27/16 [History] Hypromellose/PF [Retaine Hpmc 0.3% Eye Drops] 1 drop EYEBOTH Q4H PRN 03/27/16 [History] Meclizine [Antivert] 25 mg PO QID PRN 03/27/16 [History] Pantoprazole Sodium [Protonix] 40 mg PO DAILY 03/27/16 [History] Docusate Sodium 200 mg PO BID 08/30/16 [History] allopurinoL [Zyloprim] 100 mg PO BID 05/02/17 [History] traMADol [Ultram] 50 mg PO DAILY PRN 05/02/17 [History] Cinnamon Bark [Cinnamon] 1,000 mg PO DAILY 04/10/18 [History] Dextrose Tabs 16 g PO ASDIRECTED PRN 04/10/18 [History] Ondansetron [Zofran] 4 mg PO Q6H PRN 04/10/18 [History] Pantothenic Acid 500 mg PO BEDTIME 04/10/18 [History] aMILoride HCl [Amiloride HCl] 5 mg PO DAILY 04/10/18 [History] metOLazone [Metolazone] 2.5 mg PO .TWICEWEEKLY 04/10/18 [History] amLODIPine Besylate [Amlodipine Besylate] 2.5 mg PO BID 12/12/18 [History] calcitrioL [Calcitriol] 0.25 mcg PO ASDIRECTED 12/12/18 [History] Aspirin 81 mg PO DAILY 09/17/19 [History] Bumetanide [Bumex] 2 mg PO TID 09/17/19 [History] Cholecalciferol (Vitamin D3) [Vitamin D3] 75 mcg PO DAILY 09/17/19 [History] Diclofenac Sodium [Voltaren 1% Gel] 4 gm TOP QID PRN 09/17/19 [History] Isosorbide Mononitrate [Isosorbide Mononitrate ER] 90 mg PO DAILY 09/17/19 [History] Multivitamin [Multivitamins] 1 cap PO DAILY 09/17/19 [History] Rifaximin [Xifaxan] 550 mg PO BID 09/17/19 [History] Warfarin [Coumadin] 2.5 mg PO DAILY 09/17/19 [History] Albuterol [Proventil Neb Soln] 2.5 mg NEB Q6HRRT PRN 09/18/19 [History] Insulin Detemir [Levemir] 50 unit SQ BID 09/18/19 [History] Amitriptyline [Elavil] 20 mg PO BEDTIME tablet 09/23/19 [Rx] Insulin Lispro [HumaLOG] 30 unit SUBCUT TIDMEALS 10/23/19 [History] Lactulose [Chronulac] 3 ml PO TID 06/19/20 [History] levoFLOXacin [Levaquin] 500 mg PO BID 06/19/20 [History] Past Medical History HEENT History: Reports: Cataract, Impaired Vision, Other (See Below) Other HEENT History: HEARING LOSS TOTAL - RIGHT PARTIAL - LEFT, WEARS BILAT HEARING AIDES Cardiovascular History: Reports: Afib, Blood Clots/VTE/DVT, CAD, Heart Failure, Hypertension, MS, Stents, Other (See Below) Other Cardiovascular History: CAROTID ARTERY DISEASE. HEART FAILURE WITH PRESERVED EJECTION FRACTION. HYPERTENSIVE HEART DISEASE. TIA. 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 SUBDURAL HEMATOMA. lorazepam controls headaches from shunt Psychiatric History: Reports: Depression Endocrine/Metabolic History: Reports: Diabetes, Type II, Hypothyroidism, Obesity/BMI 30+, Osteoporosis, Vitamin D Deficiency Hematologic History: Reports: Blood Transfusion(s), Iron Deficiency Immunologic History: Reports: None Oncologic (Cancer) History: Reports: Malignant Melanoma Dermatologic History: Reports: None - Infectious Disease History Infectious Disease History: Reports: Chicken Pox, Measles, Mumps, Shingles, Other (See Below) Other Infectious Disease History: EXPOSED TO SOMETHING IN [place] IN LATE 70'S THAT AFFECTED LUNGS, CANT REMEMBER - Past Surgical History Head Surgeries/Procedures: Reports: Shunt HEENT Surgical History: Reports: Adenoidectomy, Cataract Surgery, Tonsillectomy Other HEENT Surgeries/Procedures: PE TUBE PLACEMENT/REMOVAL RIGHT EAR. BILAT CATARACT EXTRACTION WITH LENS IMPLANTS Cardiovascular Surgical History: Reports: Carotid Endarterectomy, Coronary Ar heather Stent Other Cardiovascular Surgeries/Procedures: IVC FILTER PLACEMENT & REMOVAL Respiratory Surgical History: Reports: None GI Surgical History: Reports: Appendectomy, Colon, Colonoscopy, EGD, Polypectomy, Other (See Below) Other GI Surgeries/Procedures: large colon mostly resected - annotated redundant bowel Female Surgical History: Reports: Breast Biopsy, Cystectomy, Hysterectomy, Salpingo-Oophorectomy, Other (See Below) Other Female Surgeries/Procedures: breast cyst Endocrine Surgical History: Reports: None Neurological Surgical History: Reports: Other (See Below) Other Neurological Surgeries/Procedures: spinal tap and FINE CRAFT ARTIST shunt (2008) Musculoskeletal Surgical History: Reports: None Oncologic Surgical History: Reports: Biopsy of Breast Dermatological Surgical History: Reports: None Social & Family History - Family History Family Medical History: No Pertinent Family History - Caffeine Use Caffeine Use: Reports: Coffee, Tea Caffeine Use Comment: 1 CUP COFFEE. 2 CUPS TEA - Living Situation & Occupation Living situation: Reports: with Family Occupation: Retired ED ROS GENERAL - Review of Systems Review Of Systems: Comprehensive ROS is negative, except as noted in HPI. ED EXAM, GENERAL - Physical Exam Exam: See Below Exam Limited By: No Limitations General Appearance: Alert, Mild Distress (Moaning due to generalized pain), Obese Eye Exam: Bilateral Eye: EOMI, Normal Inspection, PERRL (3mm) Ears: Normal External Exam, Normal Canal, Hearing Grossly Normal, Normal TMs Ear Exam: Bilateral Ear: Auricle Normal, Canal Normal, TM normal Nose: Other (Rhino rocket in place to right nare). No: No Blood (Dried blood) Throat/Mouth: Normal Inspection, Normal Oropharynx, Normal Voice, No Airway Compromise Head: Atraumatic, Normocephalic Neck: Normal Inspection, Supple, Non-Tender, Full Range of Motion Respiratory/Chest: Normal Breath Sounds, Chest Non-Tender, Accessory Muscle Use. No: Crackles, Rales, Rhonchi, Wheezing, Stridor Cardiovascular: Tachycardia Peripheral Pulses: 2+: Radial (L), Radial (R) GI/Abdominal: Normal Bowel Sounds, Soft, Non-Tender, No Distention, No Abnormal Bruit, No Mass, Pelvis Stable (Female) Exam: Deferred Rectal (Female) Exam: Deferred Back Exam: Normal Inspection, Full Range of Motion Extremities: Normal Inspection, Normal Range of Motion, Non-Tender, No Pedal Edema, Normal Capillary Refill Neurological: Alert, Oriented, CN II-XII Intact, Normal Cognition, Normal Gait, No Motor/Sensory Deficits Psychiatric: Normal Affect, Normal Mood Skin Exam: Warm, Dry, Intact, Normal Color, No Rash. No: Cyanosis, Jaundice, Mottled, Pallor Course - Vital Signs Last Recorded V/S: Last Vital Signs Temp 98.2 F 12/08/20 13:50 Pulse 115 H 12/08/20 13:50 Resp 16 12/08/20 13:50 BP 154/71 H 12/08/20 13:50 Pulse Ox 99 12/08/20 13:50 - Orders/Labs/Meds Labs: Laboratory Tests 12/08/20 12/08/20 12/08/20 Range/Units 14:04 14:08 14:08 WBC 19.6 H (5.0-10.0) 10^3/uL RBC 2.55 L (4.2-5.4) 10^6/uL Hgb 8.5 L D (12.0-16.0) g/dL Hct 26.4 L (37.0-47.0) % MCV 103.5 H (80-100) fL MCH 33.3 (27.0-34.0) pg MCHC 32.2 L (33.0-35.0) g/dL Plt Count 234 D (150-450) 10^3/uL Neut % (Auto) 80.6 H (42.2-75.2) % Lymph % (Auto) 6.3 L (20.5-50.1) % [place] % (Auto) 12.7 H (2-8) % Eos % (Auto) 0.1 L (1.0-3.0) % Baso % (Auto) 0.3 (0.0-1.0) % Add Manual Diff Yes Neutrophils % (Manual) 83 H (42-75) % Lymphocytes % (Manual) 8 L (20-50) % Monocytes % (Manual) 9 H (2-8) % Hypochromasia 2+ moderate PT 53.1 H D (9.0-12.0) SEC INR 5.4 H* (0.9-1.2) APTT 41.8 H (22.0-34.0) SEC Sodium (136-145) mmol/L Potassium (3.5-5.1) mmol/L Chloride (98-107) mmol/L Carbon Dioxide (21-32) mmol/L Anion Gap (7-13) mEq/L BUN (7-18) mg/dL Creatinine (0.55-1.02) mg/dL Est Cr Clr Drug Dosing Estimated GFR (MDRD) BUN/Creatinine Ratio (No establ ref range) Glucose (70-99) mg/dL Calcium (8.5-10.1) mg/dL Total Bilirubin (0.2-1.0) mg/dL AST (15-37) U/L ALT (14-59) U/L Alkaline Phosphatase (46-116) U/L C-Reactive Protein (0.0-0.9) mg/dL B-Natriuretic Peptide (0-100) pg/ml Total Protein (6.4-8.2) g/dL Albumin (3.4-5.0) g/dL Globulin Albumin/Globulin Ratio Urine Color Yellow (YELLOW) Urine Appearance Slightly cloudy (CLEAR) Urine pH 5.5 (5.0-9.0) Ur Specific [place] 1.010 (1.005-1.030) Urine Protein Negative (NEGATIVE) Urine Glucose (UA) 100 H (NEGATIVE) Urine Ketones Negative (NEGATIVE) Urine Occult Blood Trace-intact H (NEGATIVE) Urine Nitrite Negative (NEGATIVE) Urine Bilirubin Negative (NEGATIVE) Urine Urobilinogen 0.2 (0.2-1.0) mg/dL Ur Leukocyte Esterase Negative (NEGATIVE) U Hyaline Cast (Auto) Occasional Urine RBC 10-20 H (0-5) /HPF Urine WBC 0-5 (0-5/HPF) /HPF Ur Epithelial Cells Moderate H (NOT SEEN) /HPF Amorphous Sediment Occasional (NOT SEEN) /HPF Urine Bacteria Few (0-FEW/HPF) /HPF Urine Mucus Few H (NOT SEEN) /LPF 12/08/20 Range/Units 14:08 WBC (5.0-10.0) 10^3/uL RBC (4.2-5.4) 10^6/uL Hgb (12.0-16.0) g/dL Hct (37.0-47.0) % MCV (80-100) fL MCH (27.0-34.0) pg MCHC (33.0-35.0) g/dL Plt Count (150-450) 10^3/uL Neut % (Auto) (42.2-75.2) % Lymph % (Auto) (20.5-50.1) % [place] % (Auto) (2-8) % Eos % (Auto) (1.0-3.0) % Baso % (Auto) (0.0-1.0) % Add Manual Diff Neutrophils % (Manual) (42-75) % Lymphocytes % (Manual) (20-50) % Monocytes % (Manual) (2-8) % Hypochromasia PT (9.0-12.0) SEC INR (0.9-1.2) APTT (22.0-34.0) SEC Sodium 136 (136-145) mmol/L Potassium 4.6 (3.5-5.1) mmol/L Chloride 99 (98-107) mmol/L Carbon Dioxide 25 (21-32) mmol/L Anion Gap 16.6 H (7-13) mEq/L BUN 92 H D (7-18) mg/dL Creatinine 2.55 H (0.55-1.02) mg/dL Est Cr Clr Drug Dosing TNP Estimated GFR (MDRD) 18 BUN/Creatinine Ratio 36.1 (No establ ref range) Glucose 338 H (70-99) mg/dL Calcium 9.2 (8.5-10.1) mg/dL Total Bilirubin 1.2 H (0.2-1.0) mg/dL AST 48 H (15-37) U/L ALT 37 (14-59) U/L Alkaline Phosphatase 372 H (46-116) U/L C-Reactive Protein 1.8 H (0.0-0.9) mg/dL B-Natriuretic Peptide 568 H (0-100) pg/ml Total Protein 6.3 L (6.4-8.2) g/dL Albumin 2.7 L (3.4-5.0) g/dL Globulin 3.6 Albumin/Globulin Ratio 0.75 Urine Color (YELLOW) Urine Appearance (CLEAR) Urine pH (5.0-9.0) Ur Specific [place] (1.005-1.030) Urine Protein (NEGATIVE) Urine Glucose (UA) (NEGATIVE) Urine Ketones (NEGATIVE) Urine Occult Blood (NEGATIVE) Urine Nitrite (NEGATIVE) Urine Bilirubin (NEGATIVE) Urine Urobilinogen (0.2-1.0) mg/dL Ur Leukocyte Esterase (NEGATIVE) U Hyaline Cast (Auto) Urine RBC (0-5) /HPF Urine WBC (0-5/HPF) /HPF Ur Epithelial Cells (NOT SEEN) /HPF Amorphous Sediment (NOT SEEN) /HPF Urine Bacteria (0-FEW/HPF) /HPF Urine Mucus (NOT SEEN) /LPF Meds: Medications Discontinued Medications Generic Name Dose Route Start Last Admin Trade Name Rita PRN Reason Stop Dose Admin Ondansetron HCl 4 mg 12/08/20 16:06 12/08/20 16:10 Ondansetron 4 Mg/2 Ml Sdv IVPUSH 12/08/20 16:07 4 mg ONETIME ONE Administration Pantoprazole Sodium 80 mg 12/08/20 14:03 12/08/20 14:34 Pantoprazole 40 Mg Vial IVPUSH 12/08/20 14:04 80 mg .BOLUS ONE Administration - Re-Assessments/Exams Free Text/Narrative Re-Assessment/Exam: 12/08/20 Hemoccult and repeat CBC, CMP, and coags sent. Hemoccult positive. Hgb down 2 points from yesterday, INR 5.[address] Jones, hospitalist at [facility], who kindly accepted patient for transfer. Findings of examination, lab work, and conversation with Dr. Jones reviewed with patient. Patient verbalized understanding and agreement with the plan of care. Departure - Departure Time of Disposition: 15:00 Disposition: DC/Tfer to Acute Hospital 02 Condition: Poor Clinical Impression: On Coumadin for atrial fibrillation, Elevated INR GI bleed Qualifiers: GI bleed type/associated pathology: melena Qualified Code(s): K92.1 - Melena - Discharge Information Referrals: PCP,None [Primary Care Provider] - Forms: ED Department Discharge, Interfacility Transfer [facility]
[2020-12-08 15:37] VITALS: BP 154/71; PULSE 115
[2020-12-08] MEDS ORDERED: Ondansetron 4 MG/2 ML SDV IVPUSH ONE (16:06)
== END 2020-12-08 16:25 ==
LOC: DL.ED 13:38
DX: K92.1 Melena (principal); I48.91 Unspecified atrial fibrillation; R79.0 Abnormal level of blood mineral; E11.22 Type 2 diabetes mellitus with diabetic chronic kidney disease; I13.0 Hypertensive heart and chronic kidney disease with heart failure and stage 1 through stage 4 chronic kidney disease, or unspecified chronic kidney disease; N18.30 Chronic kidney disease, stage 3 unspecified; I50.33 Acute on chronic diastolic (congestive) heart failure; I25.2 Old myocardial infarction; E03.9 Hypothyroidism, unspecified; E66.9 Obesity, unspecified; Z68.41 Body mass index [BMI] 40.0-44.9, adult; Z95.5 Presence of coronary angioplasty implant and graft; Z86.73 Personal history of transient ischemic attack (TIA), and cerebral infarction without residual deficits; Z79.01 Long term (current) use of anticoagulants
CPT/HCPCS: 36415; 80053; 81001; 82272; 83880; 85025; 85610; 85730; 86140; 96374; 96375; 99284-25; C9113; J2405